=== PATIENT | male | born 1945 | race Caucasian/White ===

== ENCOUNTER 2024-01-12 10:45 | Emergency (ER) | payer MEDICARE, SELFPAY ==
[2024-01-12] VITALS (12 sets, daily range): BP systolic 108–146; BP diastolic 65–83; PULSE 79–86; TEMP 36.8; O2SAT 91–94; BMI 19.5
[2024-01-12 10:56] LABS: Glucometer 282 mg/dL (74-106)
--- NOTE | 2024-01-12 11:12 | ECG_ITS ---
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1945 Requested By: Order Number: [id number] Reading MD: LEATHA CARROLL Measurements Intervals [place] Rate: 83 P: 45 [place]: 212 QRS: -33 QRSD: 134 T: 30 QT: 382 QTc: 421 Interpretive Statements 1100 Sinus rhythm w/ first degree AV block with frequent supraventricular premature complexes, with occasional ventricular premature complexes 2330 Nonspecific intraventricular conduction block 3114 Cannot rule out anterior myocardial infarction, age undetermined 5234 Left ventricular hypertrophy with repolarization abnormality 7200 Abnormal left axis deviation 9150 abnormal ECG Electronically Signed On 01-12-2024 22:38:05 EDT by LEATHA CARROLL
--- NOTE | 2024-01-12 11:32 | XR_ITS ---
The [address] [address] Patient Name: DEBBI KEATING MRN: [id number] date: 1945 Sex: M Assigned Patient Location: ER Current Patient Location: ED.MAIN Accession/Order Number: [id number] Exam Date: 01/12/2024 11:25 Report Date: 01/12/2024 12:02 At the request of: MORENO GONZÁLES Procedure: XR chest 1V EXAM: XR chest 1V HISTORY: dizziness COMPARISON: Chest study dated 02/29/2020 TECHNIQUE: AP view of the chest was obtained with portable technique at 11:23 AM. FINDINGS: Heart and mediastinal contours are unremarkable in appearance. Mild elevation the right hemidiaphragm similar to prior study. Small linear densities in the right lower lung field compatible with atelectatic or fibrotic change. No obvious pneumothorax. Postoperative sternotomy wires are present. Cardiac valve prosthesis is noted. Mild convexity of the lower dorsal and visualized upper lumbar spine to the left. Moderate size hiatal hernia suggested which was noted previously. XR/XR chest 1V IMPRESSION: Mild atelectatic or fibrotic change in the right lower lung field. No acute infiltrate or consolidation seen. Electronically authenticated by: VAMSI LAZARO Date: 01/12/2024 12:02
[2024-01-12 11:49] LABS: Basophils Percent Auto 0.3 % (0.2-2.0); Eosinophils Absolute Auto 0.2 10^3/uL (0.0-0.7); Eosinophils Percent Auto 1.5 % (0.9-7.0); Hematocrit 41.1 % (42.0-54.0); Hemoglobin 14.4 g/dL (14.0-18.0); Immature Granulocytes Abs Auto 0.06 10^3/uL (0.00-0.03); Immature Granulocytes Pct Auto 0.6 % (0.0-0.5); Lymphocytes Percent Auto 10.1 % (20.5-60.0); Mean Corpuscular Hemoglobin 32.4 pg (25.9-34.0); Mean Corpuscular Volume 92.4 fL (80.0-94.0); Mean Platelet Volume 11.1 fL (9.5-13.5); Monocytes Absolute Auto 0.7 10^3/uL (0.3-0.8); Monocytes Percent Auto 7.6 % (1.7-12.0); Neutrophils Absolute Auto 7.7 10^3/uL (1.4-6.5); Neutrophils Percent Auto 79.9 % (43.0-75.0); Platelet Count 152 10^3/uL (150-450); Red Blood Count 4.45 10^6/uL (4.70-6.10); Red Cell Distribution Width 12.8 % (11.0-15.0); White Blood Count 9.7 10^3/uL (4.0-11.0)
--- NOTE | 2024-01-12 11:52 | ED.WEAKNESS1 ---
HPI - Weakness General Chief complaint: Weakness Stated complaint: DIZZY, WEAKNESS, SAID COULD BE FROM LOW BLOOD SUGA Time Seen by Provider: 01/12/24 10:57 Source: patient Mode of arrival: Wheelchair History of Present Illness HPI Narrative: The patient presenting to us after he has been having a complaint of generalized weakness since he had been discharged from the hospital in [facility] on Thursday which she 3 days ago, the patient was admitted there after he had a workup for chest pain, according to him he was found to be diabetic but he was not discharged home with any diabetes medication. The patient denies any abdominal pain nausea vomiting or any other concerns. He does have a generalized weakness and tiredness and his main concern that he did not take any medication for diabetes when he went home. The patient had a cardiac catheter with the right arm he is not complaining of any significant pain Related Data Home Medications ?Medication ?Instructions ?Recorded ?Confirmed lorazepam 0.5 mg tablet 0.5 mg PO .hs 01/12/24 01/12/24 metoprolol succinate 25 mg 25 mg PO DAILY 01/12/24 01/12/24 tablet,extended release 24 hr sacubitril 24 mg-valsartan 26 mg 1 tab PO DAILY 01/12/24 01/12/24 tablet (Entresto) tadalafil 20 mg tablet 20 mg PO PRN PRN sexual activity 01/12/24 01/12/24 tamsulosin 0.4 mg capsule 0.4 mg PO Q24H 01/12/24 01/12/24 warfarin 5 mg tablet 5 mg PO .COMPLEX 01/12/24 01/12/24 Allergies Allergy/AdvReac Type Severity Reaction Status Date / Time No Known Drug Allergies Allergy Verified 01/12/24 10:55 Review of Systems ROS Status of ROS 10 or more systems reviewed and unremarkable except as noted in history and below Exam Narrative Exam Narrative: Nurses notes and vital signs reviewed and patient is not hypoxic. General: Well-appearing and in no apparent distress. Skin: Warm, dry, no pallor noted. No rash. Head: Normocephalic, atraumatic. Neck: Supple, non-tender. Eye: Pupils are equal, round and EOMI. No scleral icterus. Ears, Nose, Mouth, and Throat: TM are clear, no nasal mucosal hypertrophy. Oral mucosa is moist, no posterior oropharynx erythema, uvula is mid-line Cardiovascular: Regular Rate and Rhythm the patient have the click of the mechanical valve. Respiratory: No accessory muscle use or respiratory distress. Lungs are clear to auscultation, no wheezing, rales or rhonchi Chest Wall: no tenderness Back: No midline thoracic or lumbar vertebral tenderness. No CVA tenderness Musculoskeletal: normal ROM, no calf or popliteal tenderness, no lower extremity edema/swelling. Right upper extremity on the forearm wrist area the patient have ecchymosis that is healing GI: Abdomen is soft, non-distended. Normal bowel sounds. No masses appreciated. No tenderness to palpation. No rebound, guarding, or rigidity noted. Neurological: A&O x4. No cranial nerve dysfunction observed. No truncal ataxia. Moves all extremities. Sensation intact. Psychiatric: Cooperative and interactive. Normal mood and affect. Constitutional Vital Signs, click to edit/add: Last Vital Signs Temp 98.3 F 01/12/24 11:00 Pulse 84 01/12/24 12:50 Resp 17 01/12/24 12:50 BP 126/79 01/12/24 12:30 Pulse Ox 92 L 01/12/24 12:40 O2 Del Method Room Air 01/12/24 11:00 Course Vital Signs Vital signs: Vital Signs Temperature 98.3 F 01/12/24 11:00 Pulse Rate 79 01/12/24 11:00 Respiratory Rate 16 01/12/24 11:00 Blood Pressure 136/78 01/12/24 11:00 Pulse Oximetry 93 L 01/12/24 11:00 Oxygen Delivery Method Room Air 01/12/24 11:00 Temperature 98.3 F 01/12/24 11:00 Pulse Rate 84 01/12/24 12:50 Respiratory Rate 17 01/12/24 12:50 Blood Pressure 126/79 01/12/24 12:30 Pulse Oximetry 92 L 01/12/24 12:40 Oxygen Delivery Method Room Air 01/12/24 11:00 MDM - Weakness MDM Narrative Medical decision making narrative: 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 The patient ejection fraction was found to be 40 to 45% there was no other acute significant finding and the patient hospitalization. The patient was discharged to follow-up with the primary care as outpatient with machine to measure his blood sugar at home. Patient EKG in the ER showing sinus rhythm with a heart rate of [address] elevation or depression there is PVC seen At this moment the patient denies any complaint except for the generalized weakness he did have chest pain that was the initial admission concern when he was admitted last week to [facility] but he does not have any pain anymore. He has had some decrease in appetite but he is eating 3 meals and denying any dizziness or difficulty ambulating The patient was able to ambulate in the ER with no difficulty and no desaturation detected or any distress. CBC and chemistry showed no acute pathology and the patient although he does have elevated blood sugar but he does not have any other electrolyte disturbances or any reason to start him in acute treatment right now in the ER the patient just need to be following up with his primary care doctor to get A1c and further evaluation of his diabetes Patient will follow-up with his primary care which is in few days The patient is to follow up with primary care physician in next 2-3 days or to return to the emergency department should any of the signs or symptoms worsen or new symptoms develop. The patient agrees with the following Diagnosis and Treatment plan and the patient will be discharged home. Lab Data Labs: Lab Results 01/12/24 01/12/24 01/12/24 Range/Units 10:55 11:25 12:01 WBC 9.7 (4.0-11.0) 10^3/uL RBC 4.45 L (4.70-6.10) 10^6/uL Hgb 14.4 (14.0-18.0) g/dL Hct 41.1 L (42.0-54.0) % MCV 92.4 (80.0-94.0) fL MCH 32.4 (25.9-34.0) pg MCHC 35.0 (29.9-35.2) g/dL RDW 12.8 (11.0-15.0) % Plt Count 152 (150-450) 10^3/uL MPV 11.1 (9.5-13.5) fL Neut % (Auto) 79.9 H (43.0-75.0) % Lymph % (Auto) 10.1 L (20.5-60.0) % [place] % (Auto) 7.6 (1.7-12.0) % Eos % (Auto) 1.5 (0.9-7.0) % Baso % (Auto) 0.3 (0.2-2.0) % Neut # (Auto) 7.7 H (1.4-6.5) 10^3/uL Lymph # (Auto) 1.0 L (1.2-3.8) 10^3/uL [place] # (Auto) 0.7 (0.3-0.8) 10^3/uL Eos # (Auto) 0.2 (0.0-0.7) 10^3/uL Baso # (Auto) 0.0 (0.0-0.1) 10^3/uL Abs Immat Gran (auto) 0.06 H (0.00-0.03) 10^3/uL Imm/Tot Granulo (auto) 0.6 H (0.0-0.5) % PT 21.3 H (9.0-11.6) sec INR 2.17 Sodium 133 L (136-145) mmol/L Potassium 3.9 (3.5-5.1) mmol/L Chloride 98 (98-107) mmol/L Carbon Dioxide 26.4 (21.0-32.0) mmol/L Anion Gap 12.5 BUN 14.0 (7.0-18.0) mg/dL Creatinine 1.02 (0.70-1.30) mg/dL Est GFR ( Amer) >60 (>=60) Est GFR (Non-Af Amer) >60 (>=60) BUN/Creatinine Ratio 13.7 Glucose 276 H (74-106) mg/dL Calcium 9.3 (8.5-10.1) mg/dL Magnesium 1.9 (1.8-2.4) mg/dL Total Bilirubin 0.6 (0.2-1.0) mg/dL AST 34 (15-37) U/L ALT 41 (16-63) U/L Alkaline Phosphatase 79 (46-116) U/L Troponin I High Sens 13.5 (4.0-76.1) pg/mL Total Protein 6.8 (6.4-8.2) g/dL Albumin 3.6 (3.4-5.0) g/dL Globulin 3.2 g/dL Albumin/Globulin Ratio 1.1 Urine Color Yellow (YELLOW) Urine Clarity Clear (CLEAR) Urine pH 6.5 (5.0-9.0) Ur Specific [place] 1.010 (1.005-1.025) Urine Protein Negative (NEG/TRACE) mg/dL Urine Glucose (UA) >=1000 A (NEGATIVE) mg/dL Urine Ketones Negative (NEGATIVE) mg/dL Urine Occult Blood Trace-i (NEGATIVE) Urine Nitrite Negative (NEGATIVE) Urine Bilirubin Negative (NEGATIVE) Urine Urobilinogen 1.0 (0.2-1.0) EU/dL Ur Leukocyte Esterase Negative (NEGATIVE) Urine RBC 0-2 (0-2) #/HPF Urine WBC 0-2 A (NONE SEEN) #/HPF Ur Squamous Epith Cells None seen (NONE/RARE) #/LPF Urine Crystals Seen A (None Seen) #/HPF Amorphous Sediment Rare Urine Bacteria None seen (NONE SEEN) #/HPF Urine Casts None seen (NONE SEEN) #/LPF Urine Mucus None seen (NONE SEEN) Ur Culture Indicated? No POC Glucose 282 H (74-106) mg/dL Discharge Plan Discharge Stand Alone Forms: Portal Instructions Chief Complaint: Weakness Clinical Impression: Generalized weakness Patient Disposition: Home, Self-Care Time of Disposition Decision: 13:07 Condition: Good Prescriptions / Home Meds: No Action metoprolol succinate 25 mg tablet extended release 24 hr 25 mg PO DAILY Entresto 24-26 mg tablet 1 tab PO DAILY warfarin 5 mg tablet 5 mg PO .COMPLEX Rx Instructions: 5 mg orally 5 mg daily and 2.5 mg on thursday tadalafil 20 mg tablet 20 mg PO PRN PRN (Reason: sexual activity) tamsulosin 0.4 mg capsule 0.4 mg PO Q24H lorazepam 0.5 mg tablet 0.5 mg PO .hs Print Language: Singaporean Instructions: Weakness (ED) Referrals: Physician,Non-Staff, MD [Primary Care Provider] - 1 week Discharge Date/Time: 01/12/24 13:21
[2024-01-12 11:58] LABS: Alanine Aminotransferase 41 U/L (16-63); Albumin Globulin Ratio 1.1; Albumin Level 3.6 g/dL (3.4-5.0); Alkaline Phosphatase 79 U/L (46-116); Anion Gap 12.5; Aspartate Amino Transferase 34 U/L (15-37); BUN Creatinine Ratio 13.7; Bilirubin Total 0.6 mg/dL (0.2-1.0); Calcium 9.3 mg/dL (8.5-10.1); Carbon Dioxide 26.4 mmol/L (21.0-32.0); Chloride 98 mmol/L (98-107); Estimated GFR (African America >60 (>=60); Estimated GFR (Non-African Ame >60 (>=60); Globulin 3.2 g/dL; Glucose 276 mg/dL (74-106); Magnesium 1.9 mg/dL (1.8-2.4); Potassium 3.9 mmol/L (3.5-5.1); Sodium 133 mmol/L (136-145); Total Protein 6.8 g/dL (6.4-8.2); Troponin I High Sensitivity 13.5 pg/mL (4.0-76.1)
[2024-01-12 12:12] LABS: Bilirubin Urine NEGATIVE (NEGATIVE); Blood Urine TRACE-I (NEGATIVE); Clarity Urine CLEAR (CLEAR); Color Urine YELLOW (YELLOW); Glucose Urine UA >=1000 mg/dL (NEGATIVE); Ketones Urine NEGATIVE (NEGATIVE); Leukocyte Esterase Urine NEGATIVE (NEGATIVE); Nitrite Urine NEGATIVE (NEGATIVE); Protein Urine NEGATIVE (NEG/TRACE); pH Urine 6.5 (5.0-9.0)
[2024-01-12 12:14] LABS: INR 2.17; Prothrombin Time 21.3 sec (9.0-11.6)
[2024-01-12 12:14] LABS: Urine Microscopic Indicated YES
[2024-01-12 12:35] LABS: Amorphous Sediment Urine RARE; Bacteria Urine NONE SEEN #/HPF (NONE SEEN); Cast Seen? NONE SEEN #/LPF (NONE SEEN); Crystals Seen? Seen #/HPF (None Seen); Mucus Urine NONE SEEN (NONE SEEN); RBC Urine 0-2 #/HPF (0-2); Squamous Epithelial Cell Urine NONE SEEN #/LPF (NONE/RARE); WBC Urine 0-2 #/HPF (NONE SEEN)
[2024-01-12 12:36] LABS: Urine Culture Indicated NO
== END 2024-01-12 13:21 | disposition home or self-care (01) ==
PROVIDERS: Emergency Provider Emergency Medicine
DX: R53.1 Weakness (principal); R42 Dizziness and giddiness; Z79.01 Long term (current) use of anticoagulants
CPT/HCPCS: 36415; 71045; 80053; 81001; 83735; 84484; 85025; 85610; 93005; 99285

== ENCOUNTER 2024-01-16 13:16 | Emergency (ER) | payer MEDICARE, SELFPAY ==
[2024-01-16 13:21] VITALS: BP 122/79; PULSE 91; TEMP 36.7; O2SAT 96; BMI 20.8
[2024-01-16 13:27] LABS: Glucometer 331 mg/dL (74-106)
--- NOTE | 2024-01-16 13:48 | ECG_ITS ---
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
--- NOTE | 2024-01-16 14:03 | XR_ITS ---
The [place] [id number] Patient Name: DEBBI KEATING MRN: [id number] date: 1945 Sex: M Assigned Patient Location: ER Current Patient Location: ED.MAIN Accession/Order Number: [id number] Exam Date: 01/16/2024 14:15 Report Date: 01/16/2024 14:48 At the request of: JAMIL MIGUEL Procedure: XR chest 1V CLINICAL HISTORY: Weakness COMPARISON: Chest radiograph, 4 days ago FINDINGS: Portable AP view of the chest obtained. Cardiomediastinal silhouette is chronically enlarged. Chronic elevation of the right hemidiaphragm.. Lungs are clear, no evidence of infiltrate, suspicious nodule, or mass. No evidence of significant pleural fluid on this portable projection. No acute bony abnormality. XR/XR chest 1V IMPRESSION: No acute abnormality. Electronically authenticated by: ANNE HARRINGTON Date: 01/16/2024 14:48
--- OUTSIDE RECORDS SUMMARY | 2024-01-16 14:20 | XMS_ITS | CCD ---
Author Organization [facility] Care Team Providers Care Group Chief Operator Name Role Phone REQUEST, DR FORD LISTED Consulting Unavaila ble REQUEST, DR FORD LISTED Attending Unavaila ble REQUEST, DR FORD LISTED Admitting Unavaila ble MISC, DR SAHU Primary Care Unavailable MISC, DR SAHU Primary Care Unavailable REQUEST, NONE LISTED Consulting Unavaila ble REQUEST, DR FORD LISTED Attending Unavaila ble REQUEST, DR FORD LISTED Admitting Unavaila ble MISC, DR SAHU Primary Care Unavailable PAY, DR SRIVASTAVA Attending Unavailable PAY, DR SRIVASTAVA Admitting Unavailable ZIEBER, DR YELENA Jose Consulting Unavailable PAY, DR SRIVASTAVA Consulting Unavailable KATKO, IMER Lewis Consulting Unavailable KATKO, IMER Lewis Attending Unavailable KATKO, IMER Lewis Admitting Unavailable MISC, DR SAHU Primary Care Unavailable MISC, DR SAHU Primary Care Unavailable PAY, DR SRIVASTAVA Consulting Unavailable PAY, DR SRIVASTAVA Attending Unavailable PAY, DR SRIVASTAVA Admitting Unavailable MARKER, DR ERVIN Consulting Unavailable AHDOOT, PELON Consulting Unavailable DERROW, ANNE Consulting Unavailable MISC, DR SAHU Primary Care Unavailable RICE, DR PHUC Rubio Consulting Unavailable RICE, DR PHUC Rubio Attending Unavailable RICE, DR PHUC Rubio Admitting Unavailable WEST, DR LAURA Leon Consulting Unavailable Booker Villeda Unavailable Booker Villeda Unavailable Booker Villeda Unavailable BOOKER VILLEDA Primary Care Physician [phone] Booker Villeda DO Primary Care Provider Booker Villeda DO Primary Care Provider Booker Villeda DO Primary Care Provider Cande CATALAN Referring Unavailable BOOKER VILLEDA Primary Care Unavailshayy e Cande CATALAN Attending Unavailable BOOKER VILLEDA Primary Care Unavailabl e SERVICE, JOBST Referring Unavailable BOOKER VILLEDA Primary Care Unavailable SERVICE, JOBST Referring Unavailable BOOKER VILLEDA Primary Care Unavailable SERVICE, JOBST Referring Unavailable VILLEDA, BOOKER Jose Primary Care Unavailable BOOKER VILLEDA Primary Care Physician Phuc FORBES Attending Unavailable Zeferino CHARLES Attending Unavailable Zeferino CHARLES Attending Unavailable DO Booker Villeda Primary Care Provider [facility], DO Zeferino Gilmore Emergency Provider MD Liu Ferraro Admit Provider MD Liu Ferraro Attending Provider DO Booker Villeda Primary Care Provider [place], DO Zeferino Gilmore Emergency Provider MD Liu Ferraro Admit Provider DO Anton Mirza Attending Provider Nara Nichols Consulting Unavailable Booker Villeda Primary Care Unavailable Liu Ferraro Admitting Unavailable Anton Mirza Attending Unavailable Giovani Alcaraz Consulting Unavailable Kel Rojas Consulting Ana Brown Consulting Unavailable Allergies Allergy Classification Reported Allergen(s) Allergy Type Date of Onset Reaction(s) Facility (2 sources) tamsulosin; Translations: [tamsulosin] Drug Allergy Weal (disorder), Unknown (qualifier value) [facility] Leann (1 source) No Known Medication Allergies; Translations: [No Known Medication Allergies] Propensity to adverse reactions (disorder) [facility] Rep[facility] (1 source) tamsulosin Drug Allergy [facility] Repository Medications Current Medications Medication Drug Class(es) Dates Sig (Normalized) Sig (Original) acetaminophen 500 mg oral tablet (9 sources) Start: 01-05-2024 take 2 tablets by mouth every six hours Acetaminophen (Tylenol Extra Strength) 500 mg tablet Active 1000 MG PO Every 6 hours January 05, 2024 12:00am Start: 01-13-2020 take 1 tablet by rach th every five hours acetaminophen 500 mg Tab 500 mg = 1 tab(s), Oral, Bedtime, takes a second tab 5 hours later, Refills(s) 0, Pain Start Date: 01/13/20 Status: Ordered take 1 tablet by rach th every four hours as needed acetaminophen (TYLENOL) 500 mg tablet Take 1 tablet (500 mg total) by mouth every 4 (four) hours as needed. 0 Active [id number] 200 actuat albuterol 0.09 mg/actuat metered dose inhaler (13 sources) beta2-Adrenergic Agonist Start: 11-13-2023 take 1 puff(s) by inhalation every four hours as needed Albuterol Sulfate Active 1 PUFF INHALATION Every 4 hours November 13, 2023 1:00am FreeTextSi puff as needed Inhalation every 4 hrs; Note: Source Status: Taking; Refills: 1; Provider: Deng Jose take 1 puff(s) by in halation every four hours as needed Albuterol Sulfate HFA 108 (90 Base) MCG/ACT 1 puff as needed Inhalation every 4 hrs Active take 1 puff(s) by in halation every four hours as needed Albuterol Sulfate HFA 108 (90 Base) MCG/ACT 1 puff as needed Inhalation every 4 hrs Active amoxicillin 875 mg / clavulanate 125 mg oral tablet (3 sources) Penicillin-class Antibacterial Start: 06-21-2021 take 1 tablet by mouth every twelve hours Amoxicillin-Pot Clavulanate 875-125 MG 1 tablet Orally every 12 hrs for 7 day(s) Jun, Active baclofen 20 mg oral tablet (9 sources) gamma-Aminobutyric Acid-ergic Agonist Start: 07-23-2018 take 10 mg by mouth twice daily Baclofen Active 10 MG PO Twice daily July 23, 2018 1:00am Start: 04-23-2018 take 1 tablet by rach th twice daily as needed for pain baclofen 20 mg Tab 20 mg = 1 tab(s), Oral, BID, PRN Pain, Refills(s) 0, Pain Start Date: 01/13/20 Status: Ordered 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: TAKE 1 TABLET BY RACH TH TWICE DAILY WITH FOOD OR MILK NEEDED for spasms Blood Sugar Diagnostic (2 sources) Start: 01-07-20 Blood Sugar Diagnostic Active STRIP 100 January 07, 2024 12:00am glucose checks twice daily Blood-Glucose Meter (2 sources) Start: 01-07-20 24 Blood-Glucose Meter Active KIT January 07, 2024 12:00am As Directed camphor 40 mg/ml / menthol 100 mg/ml / methyl salicylate 300 mg/ml topical cream (3 sources) camphor-methyl salicyl-menthoL 4-30-10 % cream Apply topically as needed. MONE JOSÉ 0 Active 0.8 ml enoxaparin sodium 100 mg/ml prefilled syringe (3 sources) Low Molecular Weight Heparin Start: 12-19-19 21 inject 0.7 mL by subcutaneous injection once enoxaparin (LOVENOX) 80 mg/0.8 mL syringe Indications: assisted (current) use of anticoagulants , H/O mechanical aortic valve replacement Inject 0.7 mL (70 mg total) under the skin every 12 (twelve) hours. As directed by Michelet [facility] 4 mL 0 12/18/2020 Active ferrous sulfate 325 mg oral tablet (20 sources) Start: 11-13-19 24 take 1 tablet by mouth once daily Ferrous Sulfate Active 325 MG PO Daily November 13, 2023 1:00am FreeTextSi tablet Orally one time per week; Note: Source Status: TakingPRN; Provider: Deng Shirley ( ) ferrous sulfate 325 (65 FE) mg tablet Take 1 tablet (325 mg total) by mouth as needed. 0 Active take 1 tablet by arch th every week as needed Ferrous Sulfate 325 (65 Fe) MG 1 tablet Orally one time per week PRN Active take 1 tablet by mouth every wee k Ferrous Sulfate 325 (65 Fe) MG 1 tablet Orally one time per week Active 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: Take 325 mg by mouth at bedtime as needed. fluticasone propionate 0.05 mg/actuat metered dose nasal spray (20 sources) Corticosteroid Start: 4 take 1 spray(s) nasal route once daily Fluticasone Propionate Active 1 SPRAY INTRANASAL Daily November 13, 2023 1:00am FreeTextSi spray in each nostril Nasally Once a day; Note: Source Status: TakingPRN; Refills: 5; Provider: Deng Shirley Start: 10-25-2018 take 1 spray(s) nasa l route once daily as needed Fluticasone Propionate 50 MCG/ACT 1 spray in each nostril Nasally Once a day for 30 day(s) PRN Oct, Active Handicap placards as directed (19 sources) Start: 04-27-2020 Handicap placards as directed as directed as directed as directed Apr, Active ibuprofen 800 mg oral tablet (3 sources) Nonsteroidal Anti-inflammatory Drug Start: 01-10-2021 take 1 tablet by mouth every eight hours as needed for pain ibuprofen (ADVIL,MOTRIN) 800 mg tablet Take 1 tablet (800 mg total) by mouth every 8 (eight) hours as needed for pain. 30 tablet 0 01/10/2021 Active isopropyl alcohol 0.7 ml/ml medicated pad (2 sources) Start: 01-07-2024 Alcohol Swabs Active 1 PAD TOPICAL Twice daily January 07, 2024 12:00am 24 hr metFORMIN hydrochloride 500 mg extended release oral tablet (1 source) Biguanide Start: 01-14-2024 take 500 mg by mouth once daily Metformin Active 500 MG PO Daily January 14, 2024 12:00am 24 hr metoprolol succinate 25 mg extended release oral tablet (2 sources) beta-Adrenergic Kemi Start: 01-08-2024 take 25 mg by mouth once daily Metoprolol Succinate Active 25 MG PO Daily January 08, 2024 12:00am MiraLax oral powder for reconstitution (2 sources) Start: 01-28-2020 MiraLax oral powder for reconstitution 17 gram, Oral, Daily, 527 gram, Refill(s) 0, dissolve in water before taking Start Date: 01/28/20 Status: Ordered Multiple Vitamin (19 sources) Multiple Vitamin as directed Orally Active Multivitamin (Multiple Vitamins) tablet (3 sources) Start: 11-13-2023 take 1 tablet by mouth once daily Multivitamin (Multiple Vitamins) tablet Active 1 TAB PO Daily November 13, 2023 1:00am multivitamin/iron/fo lic acid (CENTRUM COMPLETE ORAL) (3 sources) multivitamin/iro n/f olic acid (CENTRUM COMPLETE ORAL) Take by mouth daily with breakfast. 0 Active Nystatin / Triamcinolone (4 sources) Polyene Antifungal, Corticosteroid Start: 12-01-2019 nystatin-triamcinol one topical cream 1 liban, Topical, Daily, 30 gram, Refill(s) 0, apply lightly at night, [facility] 175, cm, 11/15/19 14:30:00 EDT, Height/Length Measured, 77.3, kg, 11/15/19 14:30:00 EDT, Weight Measured Start Date: 12/01/19 Status: Ordered Start: 12-01-2019 nystatin-triam cinolone topical cream 1 liban, Topical, Daily, 30 gram, Refill(s) 0, apply lightly at night, [facility] 175, cm, 11/15/19 14:30:00 EDT, Height/Length Measured, 77.3, kg, 11/15/19 14:30:00 EDT, Weight Measured Start Date: 12/01/19 Status: Ordered polyethylene glycol 3350 27571 mg powder for oral solution (2 sources) Osmotic Laxative Start: 01-28-2020 MiraLax oral powder for reconstitution 17 gram, Oral, Daily, 527 gram, Refill(s) 0, dissolve in water before taking Start Date: 01/28/20 Status: Ordered sacubitril 24 mg / valsartan 26 mg oral tablet (2 sources) Angiotensin 2 Receptor Kemi Start: 01-08-2024 take 1 tablet by mouth twice daily Sacubitril-Valsarta n (Entresto) 24-26 mg Tablet Active 1 TAB PO Twice daily January 08, 2024 12:00am tadalafil 20 mg oral tablet (20 sources) Phosphodiesterase 5 Inhibitor Start: 01-05-2024 take 20 mg by mouth once daily Tadalafil Active 20 MG PO Daily January 05, 2024 12:00am Start: 11-13-2023 End: 01-05-2024 Tadalafil Discontinued 10 MG PO . NEEDED November 13, 2023 1:00am January 05, 2024 5:36pm FreeTextSi tablet as needed Orally; Note: Source Status: TakingPRN; Provider: Dr. Forbes Start: 09-15-2023 tadalafil 20 m g Tab See Instructions, Take 1 tablet only as needed for erections, # 30 tab(s), Refills(s) 3, Pharmacy: [id number], 177, cm, 11/17/22 10:52:00 EDT, Height/Length Dosing, 73.2, kg, 11/17/22 10:52:00 EDT, Weight Dosing Start Date: 09/15/23 Status: Ordered Start: 11-17-2022 tadalafil 20 m g Tab See Instructions, Take 1 tablet only as needed for erections, # 30 tab(s), Refills(s) 3, Pharmacy: [id number], 177, cm, 11/17/22 10:52:00 EDT, Height/Length Dosing, 73.2, kg, 11/17/22 10:52:00 EDT, Weight Dosing Start Date: 11/17/22 Status: Ordered Start: 04-07-2022 [facility] tadalafil 10 mg Tab 10 mg = 1 tab(s), Oral, As Directed, PRN for erectile dysfunction, Take 1 tab by mouth 1 hr prior to sexual activity as needed. Don't exceed 1 tab in a 24 hr period., # 30 tab(s), Refills(s) 0, Pharmacy: [id number], 177, cm, 07/14/22... Start Date: 10/09/22 Status: Ordered tadalafiL (CIALI S) 20 mg tablet TAKE 1 TABLET BY MOUTH NEEDED for erections 0 Active tamsulosin hydrochloride 0.4 mg oral capsule (19 sources) alpha-Adrenergic Kemi Start: 01-05-2024 take 0.4 mg by mouth once daily Tamsulosin Active 0.4 MG PO Daily January 05, 2024 12:00am Start: 04-07-2022 take 1 capsule by [facility] once daily Flomax 0.4 mg Cap 0.4 mg = 1 cap(s), Oral, Daily, # 30 cap(s), Refills(s) 11, [facility]: [id number], 177, cm, 04/07/22 13:21:00 EDT, Height/Length Dosing, 73.2, kg, 04/07/22 13:21:00 EDT, Weight Dosing Start Date: 04/22/22 Status: Ordered Start: 10-17-2021 End: 03-16-2025 take 1 capsule by mouth twice daily tamsulosin 0.4 mg Cap 0.4 mg = 1 cap(s), Oral, BID, X 60 day(s), # 120 cap(s), Refills(s) 11, Pharmacy: [id number], 177, cm, 11/17/22 10:52:00 EDT, Height/Length Dosing, 73.2, kg, 11/17/22 10:52:00 EDT, Weight Dosing Start Date: 03/27/23 Stop Date: 03/16/25 Status: Ordered 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: Take 0.4 mg by mouth twice daily. TESTOSTERONE, BULK, MISC (3 sources) TESTOSTERONE, BU LK, MISC by miscellaneous route as needed. 0 Active warfarin sodium 5 mg oral tablet (20 sources) Vitamin K Antagonist Start: 01-13-2020 warfarin 5 mg Tab 2.5 mg = 0.5 tab(s), Oral, Thursday, Refills(s) 0, Blood Thinner Start Date: 01/13/20 Status: Ordered Start: 01-13-2020 warfarin 5 mg Tab 7.5 mg = 1.5 tab(s), Oral, ThuS, Refills(s) 0, Blood Thinner Start Date: 01/13/20 Status: Ordered Start: 05-12-2018 take 5 mg by mouth once Warfar in Active 5 MG PO .complex July 23, 2018 1:00am 5 mg PO every Thursday, Thursday, Thursday, , Thursday, Thursday 2.5 mg PO every Thursday 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: Take 5 mg by mouth o nce daily. Completed/Discontinued Medications Medication Drug Class(es) Dates Sig (Normalized) Sig (Original) LORazepam 0.5 mg oral tablet (20 sources) Benzodiazepine Start: 12-27-2019 End: 11-13-2023 take 1 tablet by mouth once daily as needed Lorazepam Discontinued 0.5 MG PO Daily November 13, 2023 11:33am November 13, 2023 11:46am FreeTextSi tablet as needed Orally Once a day; Note: Source Status: Refill; Refills: 1; Qty: 30 Tablet; Provider: Degn Jose 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: Take 0.25-0.5 mg by mouth daily at bedtime. 24 hr niacin 1000 mg extended release oral tablet (20 sources) Nicotinic Acid Start: 11-13-2023 End: 01-05-2024 take 1000 mg by mouth twice daily Niacin Discontinued 1000 MG PO Twice daily November 13, 2023 1:00am January 05, 2024 5:36pm take 1 tablet by rach once daily at breakfast niacin (VITAMIN B3) 500 mg tablet Take 1 tablet (500 mg total) by mouth daily with breakfast. 0 Active take 1 tablet by mouth twice michelle ly Niacin 1000 MG 1 tablet Orally twice a day Active Prosta Response (3 sources) Start: 07-23-2018 End: 01-05-2024 Prosta Response Discontinued July 23, 2018 1:00am January 05, 2024 5:37pm terazosin 5 mg oral capsule (20 sources) alpha-Adrenergi c Kemi Start: 11-13-2023 End: 01-05-2024 take 1 capsule by mouth once daily at bedtime Terazosin Discontinued 5 MG PO Daily at bedtime November 13, 2023 1:00am January 05, 2024 5:35pm FreeTextSi capsule at bedtime Orally Once a day; Note: Source Status: Taking; Provider: urology take 1 capsule by mo [facility] every twenty-four hours Terazosin HCl 5 MG 1 capsule at bedtime Orally Once a day Active Triamcinolone (13 sources) Corticosteroid Start: 04-18-2015 KENALOG - 10 m g Apr, 40 mg Virility For Men (3 sources) Start: 07-23-2018 End: 01-05-2024 Virility For Men Discontinue d July 23, 2018 1:00am January 05, 2024 5:38pm Problems Active Problems Problem Classification Problem Date Documented Da te Episodic/Chronic Abdominal hernia (8 sources) Diaphragmatic hernia without obstruction or gangrene; Translations: [Left inguinal hernia ] Onset: 03-02-2020 07-07-2019 Episodic Anxiety disorders (20 sources) Generalized anxiety disorder; Translations: [Generalized anxiety disorder] Onset: 06-25-2021 Resolved: 03-25-2022 Chronic Aortic; peripheral; and visceral artery aneurysms (1 source) Thoracic aortic aneurysm, without rupture; Translations: [THORACIC AORTIC ANEUR W/O RUPTURE] Onset: 03-02-2020 Chronic Asthma (1 source) Unspecified asthma, uncomplicated; Translations: [UNSPECIFIED ASTHMA UNCOMPLICATED] Onset: 03-02-2020 Chronic Cancer of prostate (20 sources) Adenocarcinoma of prostate; Translations: [Malignant neoplasm of prostate] Onset: 06-30-2018 Chronic Cancer of prostate (12 sources) Personal history of malignant neoplasm of prostate; Translations: [History of malignant neoplasm of prostate] Onset: 12-20-2020 Episodic Congestive heart failure; nonhypertensive (20 sources) Chronic systolic heart failure; Translations: [Chronic systolic (congestive) heart failure] Onset: 11-06-2021 Resolved: 11-06-2021 Chronic Diabetes mellitus with complications (2 sources) Hyperglycemia due to type 2 diabetes mellitus; Translations: [Type 2 diabetes mellitus with hyperglycemia] 01-14-2024 Chronic Diabetes mellitus without complication (5 sources) Type 2 diabetes mellitus in nonobese; Translations: [Type 2 diabetes mellitus without complications] Onset: 01-07-2024 01-07-2024 Chronic Diabetes mellitus without complication (20 sources) Impaired fasting glycemia; Translations: [Impaired fasting glucose] 11-12-2023 Episodic Disorders of lipid metabolism (20 sources) Mixed hyperlipidemia; Translations: [Mixed hyperlipidemia] Chronic Essential hypertension (20 sources) Essential hypertension; Translations: [Essential (primary) hypertension] Onset: 01-07-2024 11-12-2023 Chronic Genitourinary symptoms and ill-defined conditions (7 sources) Post-micturition incontinence ; Translations: [Post-void dribbling] Onset: 12-20-2020 12-27-2019 Chronic Genitourinary symptoms and ill-defined conditions (20 sources) Retention of urine, unspecified; Translations: [Dysuria] Onset: 03-02-2020 Episodic Heart valve disorders (20 sources) Presence of prosthetic heart valve; Translations: [History of aortic valve replacement] Onset: 12-16-2016 Resolved: 11-06-2021 Chronic Hyperplasia of prostate (11 sources) Benign prostatic hypertrophy with outflow obstruction; Translations: [Benign prostatic hyperplasia with lower urinary tract symptoms] Onset: 12-20-2020 Chronic Inflammatory conditions of male genital organs (19 sources) Balanitis; 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 Malaise and fatigue (13 sources) Weakness; Translations: [Asthenia] Onset: 02-29-2020 Episodic Nonspecific chest pain (12 sources) Chest pain, unspecified; Translations: [Chest pain] Onset: 12-09-2019 12-09-2019 Episodic Nutritional deficiencies (3 sources) Nutritional marasmus; Translations: [Unspecified severe protein-calorie malnutrition] Onset: 03-08-2020 03-08-2020 Chronic Other aftercare (1 source) Other body work auto trimmer (current) drug therapy; Translations: [OTH HALFWAY CURRENT DRUG THERAPY] Onset: 01-09-2021 Episodic Other aftercare (20 sources) Long-term current use of anticoagulant; Translations: [assisted (current) use of anticoagulants] Onset: 12-16-2016 09-03-2023 Episodic Other aftercare (1 source) Encounter for therapeutic drug level monitoring; Translations: [Encounter for therapeutic drug level monitoring] Onset: 11-26-2023 Episodic Other diseases of kidney and ureters (1 source) Urinary tract obstruction; Translations: [Other obstructive and reflux uropathy] Onset: 11-17-2022 Episodic Other male genital disorders (8 sources) Male erectile dysfunction, unspecified; Translations: [Erectile dysfunction] Onset: 04-07-2022 Chronic Other male genital disorders (3 sources) Pelvic hematoma; Translations: [Vascular disorders of male genital organs] Onset: 03-01-2020 03-01-2020 Chronic Other male genital disorders (4 sources) Other specified disorders of the male genital organs; Translations: [OTHER SPEC D/O MALE GENITAL ORGANS] Onset: 01-29-2021 Episodic Other male genital disorders (7 sources) Phimosis; Translations: [Phimosis] Onset: 12-20-2020 02-07-2020 Episodic Other male genital disorders (4 sources) Swelling of scrotum 01-28-2021 Episodic Other nutritional; endocrine; and metabolic disorders (4 sources) Weight loss 01-13-2020 Episodic Other screening for suspected conditions (not mental disorders or infectious disease) (6 sources) Other specified abnormal findings of blood chemistry; Translations: [Cardiovascular stress test abnormal] Onset: 03-02-2020 01-07-2024 Episodic Residual codes; unclassified (4 sources) Chronic back pain 01-13-2020 Episodic Residual codes; unclassified (7 sources) H/O: anticoagulant therapy; Translations: [Personal history of other drug therapy] Onset: 12-20-2020 12-27-2019 Episodic Unclassified (4 sources) Drug therapy finding 04-30-2020 Unclassified (2 sources) Body mass index 20-24 - normal 11-17-2022 Unclassified (2 sources) Non-smoker 11-17-2022 Urinary tract infections (8 sources) Urinary tract infection, site not specified; Translations: [Urinary tract infectious disease] Onset: 03-02-2020 12-27-2019 Episodic Past or Other Problems Problem Classification Problem Date Documented Date Episodic/Chronic Abdominal pain (1 source) Left lower quadrant pain; Translations: [LEFT LOWER QUADRANT PAIN] Onset: 03-02-2020 Episodic Complication of device; implant or graft (1 source) Leakage of other urinary catheter, initial encounter; Translations: [LEAKAGE OTHER URINARY CATH INITIAL] Onset: 03-02-2020 Episodic Complications of surgical procedures or medical care (1 source) Postprocedural hemorrhage of a genitourinary system organ or structure following a genitourinary system procedure; Translations: [POSTPCR HEM DAISY ORG/STR FLW DAISY PCR] Onset: 03-02-2020 Episodic E Codes: Fall (1 source) Unspecified fall, initial encounter; Translations: [UNSPECIFIED FALL INITIAL ENCOUNTER] Onset: 05-08-2020 Episodic Fluid and electrolyte disorders (1 source) Acidosis; Translations: [ACIDOSIS] Onset: 03-02-2020 Episodic Immunizations and screening for infectious disease (8 sources) Encounter for immunization; Translations: [Infectious disease carrier] Onset: 01-13-2020 Resolved: 07-16-2021 Episodic 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: 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 Other aftercare (4 sources) assisted (current) use of anticoagulants; Translations: [HALFWAY CURRNT USE ANTICOAGULANTS] Onset: 12-16-2016 Resolved: 11-06-2021 Episodic Other circulatory disease (1 source) Personal history of transient ischemic attack (TIA), and cerebral infarction without residual deficits; Translations: [PERS HX TIA AND CI NO RESID DEFICIT] Onset: 03-02-2020 Episodic Other connective tissue disease (3 sources) Pain in right thigh; Translations: [PAIN IN RIGHT THIGH] Onset: 05-04-2020 Episodic Other connective tissue disease (1 source) Pain in right leg; Translations: [PAIN IN RIGHT LEG] Onset: 05-08-2020 Episodic Other diseases of kidney and ureters (1 source) Disorder of kidney and ureter, unspecified; Translations: [DISORDER KIDNEY AND URETER UNS] Onset: 03-02-2020 Episodic Other lower respiratory disease (1 source) Shortness of breath; Translations: [SHORTNESS OF BREATH] Onset: 03-02-2020 Episodic Other non-traumatic joint disorders (1 source) Pain in right hip; Translations: [PAIN IN RIGHT HIP] Onset: 05-08-2020 Episodic Other upper respiratory infections (1 source) Acute maxillary sinusitis, unspecified; Translations: [Acute non-recurrent maxillary sinusitis J01.00] Onset: 06-21-2021 Resolved: 06-21-2021 Episodic Residual codes; unclassified (1 source) Other specified postprocedural states; Translations: [OTH SPECIFIED POSTPROCEDURAL STATES] Onset: 03-02-2020 Episodic Screening and history of mental health and substance abuse codes (1 source) Personal history of nicotine dependence; Translations: [PERSONAL HISTORY OF NICOTINE DEPEND] Onset: 05-08-2020 Episodic Septicemia (except in labor) (1 source) Sepsis, unspecified organism; Translations: [SEPSIS UNSPECIFIED ORGANISM] Onset: 03-02-2020 Episodic Sprains and strains (1 source) Unspecified sprain of right hip, initial encounter; Translations: [UNSPECIFIED SPRAIN RT HIP INITIAL] Onset: 05-08-2020 Episodic Superficial injury; contusion (1 source) Contusion of lower back and pelvis, initial encounter; Translations: [CONTUSION LOWER BACK PELVIS INITIAL] Onset: 05-08-2020 Episodic Results Test Name Value Interpretation Reference Range Facility Activated partial thrombopla stin time (aPTT) in platelet poor plasma by coagulation aOrdered By: Liu Ferraro on 01-09-2024 aPTT Coag (PPP) [Time] 83.5 s 25.1-36.5 [facility] 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: A hematocrit value g reater than 55% may lead to inaccurate results in coagulation testing. Patients having hematocrit values >55% require a special collection tube for coagulation studies. Please contact the laboratory at [phone] for redraw instructions. Capillary blood glucose yamileth urement by glucometer (mass/volume)Ordered By: Anotn Mirza on 01-09-2024 Glucose [Mass/Vol] 211 mg/dL [facility] 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: Random Glucose Refer ence Range is dependent on time and content of last meal. Glucose of more than 200 mg/dL in a nonstressed, ambulatory subject supports the diagnosis of Diabetes Mellitus. Result Comment: [place] Glucose Reference Range is dependent on time and content of last meal. Glucose of more than 200 mg/dL in a nonstressed, ambulatory subject supports the diagnosis of Diabetes Mellitus. PERFORMED BY: [place] [address] PATHOLOGIST CONSULTING IT ARCHITECT DARÍO ROGERS M.D. Performed By: #### P T #### [address] Glucose Poct Glucometerson 0 01-09-2024 Glucose [Mass/Vol] 183 mg/dL Normal [facility] 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: Result Comment: [place] Glucose Reference Range is dependent on time and content of last meal. Glucose of more than 200 mg/dL in a nonstressed, ambulatory subject supports the diagnosis of Diabetes Mellitus. PERFORMED BY: [place] [address] PATHOLOGIST CONSULTING IT ARCHITECT DARÍO ROGERS M.D. Performed By: #### G LULS #### Point of Care testing , INR in Platelet poor plasma by Coagulation assayOrdered By: Liu Ferraro on 01-09-2024 INR Coag (PPP) [Relative time] 1.1 {INR} [facility] 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: INR Therapeutic Rang e A) Pre- and Peroperative OAT started two weeks before surgery. NOT HIP SURGERY: 1.5 - 2.5 HIP SURGERY: 2 - 3B) Primary and secondary prevention of venous THROMBOSIS: 2 - 3C) Active venous thrombosis, pulmonary embolismand prevention of recurrent venous thrombosis: 2 - 3D) Prevention of arterial thromboembolismincluding patients with mechanical heart valves: 3 - 4.5 Partial Thromboplastin Timeo n 01-09-2024 aPTT Coag (Bld) [Time] 83.5 s High 25.1-36.5 [facility] 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: Result Comment: A he matocrit value greater than 55% may lead to inaccurate results in coagulation testing. Patients having hematocrit values >55% require a special collection tube for coagulation studies. Please contact the laboratory at [phone] for redraw instructions. PERFORMED BY: [place] [phone] PATHOLOGIST CONSULTING IT ARCHITECT DARÍO ROGERS M.D. Performed By: #### P TT #### [place] [id number] [facility] aPTT Coag (Bld) [Time] 48.7 s High 25.1-36.5 [facility] 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: Result Comment: A he matocrit value greater than 55% may lead to inaccurate results in coagulation testing. Patients having hematocrit values >55% require a special collection tube for coagulation studies. Please contact the laboratory at [phone] for redraw instructions. PERFORMED BY: [place] [address] PATHOLOGIST CONSULTING IT ARCHITECT DARÍO ROGERS M.D. Performed By: #### P T #### [address] [address] Prothrombin Time INRon 01-08 INR Coag (PPP) [Relative time] 1.1 {INR} Normal [facility] 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: Result Comment: INR Therapeutic Range A) Pre- and Peroperative OAT started two weeks before surgery. NOT HIP SURGERY: 1.5 - 2.5 HIP SURGERY: 2 - 3 B) Primary and secondary prevention of venous THROMBOSIS: 2 - 3 C) Active venous thrombosis, pulmonary embolism and prevention of recurrent venous thrombosis: 2 - 3 D) Prevention of arterial thromboembolism including patients with mechanical heart valves: 3 - 4.5 PERFORMED BY: [place] [address] PATHOLOGIST CONSULTING IT ARCHITECT DARÍO ROGERS M.D. Performed By: #### P T #### [address] [address] [place] PT Coag (PPP) [Time] 13.1 s High 9.0-12.9 [facility] 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: Result Comment: A he matocrit value greater than 55% may lead to inaccurate results in coagulation testing. Patients having hematocrit values >55% require a special collection tube for coagulation studies. Please contact the laboratory at [phone] for redraw instructions. Performed By: #### P T #### [place] [id number] [facility] Prothrombin time (PT)Ordered By: Liu Ferraro on 01-09-2024 PT Coag (PPP) [Time] 13.1 s 9.0-12.9 [facility] 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: A hematocrit value g reater than 55% may lead to inaccurate results in coagulation testing. Patients having hematocrit values >55% require a special collection tube for coagulation studies. Please contact the laboratory at [phone] for redraw instructions. Glucose Poct Glucometerson 0 01-08-2024 Commemt1 Glu2: Cleaned Meter Normal [facility] 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: Result Comment: PERF ORMED BY: [place] [address] PATHOLOGIST CONSULTING IT ARCHITECT DARÍO ROGERS M.D. Performed By: #### G LULS #### Point of Care testing , Glucose [Mass/Vol] 160 mg/dL Normal [facility] 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: Result Comment: [facility] Glucose Reference Range is dependent on time and content of last meal. Glucose of more than 200 mg/dL in a nonstressed, ambulatory subject supports the diagnosis of Diabetes Mellitus. Performed By: #### G LULS #### Point of Care testing , Commemt1 Glu2: Cleaned Meter Normal [facility] 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: Result Comment: PERF ORMED BY: [place] [address] PATHOLOGIST CONSULTING IT ARCHITECT DARÍO ROGERS M.D. Performed By: #### G LULS #### Point of Care testing , Glucose [Mass/Vol] 207 mg/dL Normal [facility] 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: Result Comment: [place] Glucose Reference Range is dependent on time and content of last meal. Glucose of more than 200 mg/dL in a nonstressed, ambulatory subject supports the diagnosis of Diabetes Mellitus. Performed By: #### G LULS #### Point of Care testing , Glucose [Mass/Vol] 199 mg/dL Normal [facility] 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: Result Comment: [facility] Glucose Reference Range is dependent on time and content of last meal. Glucose of more than 200 mg/dL in a nonstressed, ambulatory subject supports the diagnosis of Diabetes Mellitus. PERFORMED BY: [place] [address] PATHOLOGIST CONSULTING IT ARCHITECT DARÍO ROGERS M.D. Performed By: #### P T #### [address] Glucose [Mass/Vol] 162 mg/dL Normal [facility] 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: Result Comment: [facility] Glucose Reference Range is dependent on time and content of last meal. Glucose of more than 200 mg/dL in a nonstressed, ambulatory subject supports the diagnosis of Diabetes Mellitus. PERFORMED BY: [place] [address] PATHOLOGIST CONSULTING IT ARCHITECT DARÍO ROGERS M.D. Performed By: #### G LULS #### Point of Care testing , Glucose [Mass/Vol] 164 mg/dL Normal [facility] 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: Result Comment: [facility] Glucose Reference Range is dependent on time and content of last meal. Glucose of more than 200 mg/dL in a nonstressed, ambulatory subject supports the diagnosis of Diabetes Mellitus. PERFORMED BY: [place] [address] PATHOLOGIST CONSULTING IT ARCHITECT DARÍO ROGERS M.D. Performed By: #### P T #### [address] No Panel InformationOrdered By: Anton Mirza on 01-08-2024 Bedside Glucose Comment Glu2: cleaned meter [facility] Partial Thromboplastin Timeo n 01-08-2024 aPTT Coag (Bld) [Time] 74.2 s High 25.1-36.5 [facility] 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: Order Comment: draw last Result Comment: A he matocrit value greater than 55% may lead to inaccurate results in coagulation testing. Patients having hematocrit values >55% require a special collection tube for coagulation studies. Please contact the laboratory at [phone] for redraw instructions. PERFORMED BY: [place] [address] PATHOLOGIST CONSULTING IT ARCHITECT DARÍO ROGERS M.D. Performed By: #### P T #### [facility] [address] [place] [address] aPTT Coag (Bld) [Time] 48.9 s High 25.1-36.5 [facility] 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: Result Comment: A he matocrit value greater than 55% may lead to inaccurate results in coagulation testing. Patients having hematocrit values >55% require a special collection tube for coagulation studies. Please contact the laboratory at [phone] for redraw instructions. PERFORMED BY: [place] [address] PATHOLOGIST CONSULTING IT ARCHITECT DARÍO ROGERS M.D. Performed By: #### G LULS #### Point of Care testing , aPTT Coag (Bld) [Time] 45.9 s High 25.1-36.5 [facility] 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: Order Comment: Comme nt Obtain PTT 6 HRS after start of Heparin changes Result Comment: A he matocrit value greater than 55% may lead to inaccurate results in coagulation testing. Patients having hematocrit values >55% require a special collection tube for coagulation studies. Please contact the laboratory at [phone] for redraw instructions. PERFORMED BY: [place] [address] PATHOLOGIST CONSULTING IT ARCHITECT DARÍO ROGERS M.D. Performed By: #### G LULS #### Point of Care testing , Prothrombin Time INRon 01-07 INR Coag (PPP) [Relative time] 1.5 {INR} Normal [facility] 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: Order Comment: draw last Result Comment: INR Therapeutic Range A) Pre- and Peroperative OAT started two weeks before surgery. NOT HIP SURGERY: 1.5 - 2.5 HIP SURGERY: 2 - 3 B) Primary and secondary prevention of venous THROMBOSIS: 2 - 3 C) Active venous thrombosis, pulmonary embolism and prevention of recurrent venous thrombosis: 2 - 3 D) Prevention of arterial thromboembolism including patients with mechanical heart valves: 3 - 4.5 Performed By: #### P T #### [address] PT Coag (PPP) [Time] 16.7 s High 9.0-12.9 [facility] 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: Order Comment: draw last Result Comment: A he matocrit value greater than 55% may lead to inaccurate results in coagulation testing. Patients having hematocrit values >55% require a special collection tube for coagulation studies. Please contact the laboratory at [phone] for redraw instructions. Performed By: #### P T #### [address] INR Coag (PPP) [Relative time] 1.9 {INR} Normal [facility] 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: Result Comment: INR Therapeutic Range A) Pre- and Peroperative OAT started two weeks before surgery. NOT HIP SURGERY: 1.5 - 2.5 HIP SURGERY: 2 - 3 B) Primary and secondary prevention of venous THROMBOSIS: 2 - 3 C) Active venous thrombosis, pulmonary embolism and prevention of recurrent venous thrombosis: 2 - 3 D) Prevention of arterial thromboembolism including patients with mechanical heart valves: 3 - 4.5 PERFORMED BY: [place] [address] PATHOLOGIST CONSULTING IT ARCHITECT DARÍO ROGERS M.D. Performed By: #### P T #### [address] PT Coag (PPP) [Time] 22.0 s High 9.0-12.9 [facility] 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: Result Comment: A he matocrit value greater than 55% may lead to inaccurate results in coagulation testing. Patients having hematocrit values >55% require a special collection tube for coagulation studies. Please contact the laboratory at [phone] for redraw instructions. Performed By: #### P T #### [address] [address] STR cardiac stress/lexiscano n 01-08-2024 STR cardiac stress/lexiscan [facility] [place] [address] [place] [address] Cardiac Stress Test Signed Patient: Debbi Zendejas MR#: [id number] : 1945 Acct:[id number] Age/Sex: 78 / M ADM Date: 01/07/24 Loc: Room: [address] [place] [address] Type: DIS IN Attending Dr: Anton Mirza DO Copies to: MD Abelardo Chamorro MD, [facility] Ordering Provider: Kel Rojas MD Date of Service: 01/07/24 STR/STR cardiac stress/lexiscan: chest pain ORDERED BY: Kel Rojas MD INDICATION: A 78-year-old patient with chest pain. Resting ECG revealed normal sinus rhythm with sinus arrhythmia, PVCs and first-degree AV block, LVH with QRS widening. Resting blood pressure 129/76 mmHg. Following intravenous administration of 400 mcg of Lexiscan over 10 seconds, no changes suggestive of ischemia were noted. No chest pain and no cardiac arrhythmias were seen. Cardiolite study followed. CONCLUSION: 1. No Lexiscan-induced ischemic ST segment abnormalities, chest pain or cardiac arrhythmias. 2. Cardiolite studies to be reported separately by Nuclear Cardiology. Transcribed By: NTS 01/08/242020 Dictated By: Abelardo Jamil MD, [facility] 01/08/24 1916 Signed By: 01/12/24 1320 Normal [facility] Basophils Auto (Bld) [#/Vol] Ordered By: Kel Rojas on 01-07-2024 Basophils (Bld) [#/Vol] 0.0 10*3/uL 0.0-0.2 [facility] Basophils/100 WBC Auto (Bld) Ordered By: Kel Rojas on 01-07-2024 Basophils/100 WBC (Bld) 0.3 % . [facility] Complete Blood Count Auto Di ffon 01-07-2024 Basophils (Bld) [#/Vol] 0.0 10*3/uL Normal 0.0-0.2 [facility] 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: Result Comment: PERF ORMED BY: [facility] [address] [place] [address] PATHOLOGIST CONSULTING IT ARCHITECT DARÍO ROGERS M.D. Performed By: #### G LULS #### Point of Care testing , Basophils/100 WBC (Bld) 0.3 % Normal . [facility] 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: Performed By: #### G LULS #### Point of Care testing , Eosinophils (Bld) [#/Vol] 0.1 10*3/uL Normal 0.0-0.45 [facility] 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: Performed By: #### G LULS #### Point of Care testing , Eosinophils/100 WBC (Bld) 1.3 % Normal . [facility] 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: Performed By: #### G LULS #### Point of Care testing , Erythrocyte distribution width (RBC) [Ratio] 13.4 % Normal 12.0-14.8 [facility] 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: Performed By: #### G LULS #### Point of Care testing , Hematocrit (Bld) [Volume fraction] 45.1 % Normal 38.8-50.0 [facility] 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: Performed By: #### G LULS #### Point of Care testing , Hemoglobin (Bld) [Mass/Vol] 15.4 g/dL Normal 13.0-17.0 [facility] 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: Performed By: #### G LULS #### Point of Care testing , Lymphocytes (Bld) [#/Vol] 1.8 10*3/uL Normal 1.00-4.8 [facility] 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: Performed By: #### G LULS #### Point of Care testing , Lymphocytes/100 WBC (Bld) 15.8 % Normal . [facility] 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: Performed By: #### G LULS #### Point of Care testing , MCH (RBC) [Entitic mass] 31.9 pg Normal 27.5-35.2 [facility] 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: Performed By: #### G LULS #### Point of Care testing , MCV (RBC) [Entitic vol] 93.4 fL Normal 83.5-101 [facility] 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: Performed By: #### G LULS #### Point of Care testing , Mean Corpuscular HGB Conc 34.2 g/dL Normal 32.5-35.6 [facility] 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: Performed By: #### G LULS #### Point of Care testing , Monocytes (Bld) [#/Vol] 0.9 10*3/uL High 0.0-0.8 [facility] 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: Performed By: #### G LULS #### Point of Care testing , Monocytes/100 WBC (Bld) 7.7 % Normal . [facility] 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: Performed By: #### G LULS #### Point of Care testing , Neutrophils (Bld) [#/Vol] 8.5 10*3/uL High 1.8-7.7 [facility] 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: Performed By: #### G LULS #### Point of Care testing , Neutrophils/100 WBC (Bld) 74.9 % Normal . [facility] 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: Performed By: #### G LULS #### Point of Care testing , NRBC% 0.0 /100{WBC} Normal 0-0.5 [facility] 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: Performed By: #### G LULS #### Point of Care testing , Platelet mean volume (Bld) [Entitic vol] 9.6 fL Normal 6.6-10.1 [facility] 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: Performed By: #### G LULS #### Point of Care testing , Platelets (Bld) [#/Vol] 180 10*3/uL Normal 150-450 [facility] 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: Performed By: #### G LULS #### Point of Care testing , RBC (Bld) [#/Vol] 4.83 10*6/uL Normal 3.90-5.60 [facility] 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: Performed By: #### G LULS #### Point of Care testing , WBC (Bld) [#/Vol] 11.3 10*3/uL High 4.1-10.5 [facility] 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: Performed By: #### G LULS #### Point of Care testing , Eosinophils Auto (Bld) [#/Vo l]Ordered By: Kel Rojas on 01-07-2024 Eosinophils (Bld) [#/Vol] 0.1 10*3/uL 0.0-0.45 [facility] Eosinophils/100 WBC Auto (Bl d)Ordered By: Kel Rojas on 01-07-2024 Eosinophils/100 WBC (Bld) 1.3 % . [facility] Erythrocyte distribution wid th Auto (RBC) [Ratio]Ordered By: Kel Rojas on 01-07-2024 Erythrocyte distribution width (RBC) [Ratio] 13.4 % 12.0-14.8 [facility] Glucose Poct Glucometerson 0 01-07-2024 Glucose [Mass/Vol] 133 mg/dL Normal [facility] 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: Result Comment: [facility] Glucose Reference Range is dependent on time and content of last meal. Glucose of more than 200 mg/dL in a nonstressed, ambulatory subject supports the diagnosis of Diabetes Mellitus. PERFORMED BY: [address] [address] PATHOLOGIST CONSULTING IT ARCHITECT DARÍO ROGERS M.D. Performed By: #### G LULS #### Point of Care testing , Glucose [Mass/Vol] 242 mg/dL Normal [facility] 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: Result Comment: [facility] Glucose Reference Range is dependent on time and content of last meal. Glucose of more than 200 mg/dL in a nonstressed, ambulatory subject supports the diagnosis of Diabetes Mellitus. PERFORMED BY: [address] [address] PATHOLOGIST CONSULTING IT ARCHITECT DARÍO ROGERS M.D. Performed By: #### G LULS #### Point of Care testing , Glucose [Mass/Vol] 181 mg/dL Normal [facility] 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: Result Comment: [facility] Glucose Reference Range is dependent on time and content of last meal. Glucose of more than 200 mg/dL in a nonstressed, ambulatory subject supports the diagnosis of Diabetes Mellitus. PERFORMED BY: [address] [address] PATHOLOGIST CONSULTING IT ARCHITECT DARÍO ROGERS M.D. Performed By: #### G LULS #### Point of Care testing , Glucose [Mass/Vol] 202 mg/dL Normal [facility] 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: Result Comment: [place] Glucose Reference Range is dependent on time and content of last meal. Glucose of more than 200 mg/dL in a nonstressed, ambulatory subject supports the diagnosis of Diabetes Mellitus. PERFORMED BY: [place] [address] PATHOLOGIST CONSULTING IT ARCHITECT DARÍO ROGERS M.D. Performed By: #### P T #### [address] Hematocrit Auto (Bld) [Volum e fraction]Ordered By: Kel Rojas on 01-07-2024 Hematocrit (Bld) [Volume fraction] 45.1 % 38.8-50.0 [facility] Hemoglobin [Mass/volume] in BloodOrdered By: Kel Rojas on 01-07-2024 Hemoglobin (Bld) [Mass/Vol] 15.4 g/dL 13.0-17.0 [facility] Leukocytes [#/volume] correc earnest for nucleated erythrocytes in Blood by Automated counOrdered By: Kel Rojas on 01-07-2024 WBC corrected for nucl RBC Auto (Bld) [#/Vol] 11.3 10*3/uL 4.1-10.5 [facility] Lymphocytes Auto (Bld) [#/Vo l]Ordered By: Kel Rojas on 01-07-2024 Lymphocytes (Bld) [#/Vol] 1.8 10*3/uL 1.00-4.8 [facility] Lymphocytes/100 WBC Auto (Bl d)Ordered By: Kel Rojas on 01-07-2024 Lymphocytes/100 WBC (Bld) 15.8 % . [facility] MCH Auto (RBC) [Entitic mass ]Ordered By: Kel Rojas on 01-07-2024 MCH (RBC) [Entitic mass] 31.9 pg 27.5-35.2 [facility] MCHC Auto (RBC) [Mass/Vol]Or dered By: Kel Rojas on 01-07-2024 MCHC (RBC) [Mass/Vol] 34.2 g/dL 32.5-35.6 [facility] MCV Auto (RBC) [Entitic vol] Ordered By: Kel Rojas on 01-07-2024 MCV (RBC) [Entitic vol] 93.4 fL 83.5-101 [facility] Monocytes Auto (Bld) [#/Vol] Ordered By: Kel Rojas on 01-07-2024 Monocytes (Bld) [#/Vol] 0.9 10*3/uL 0.0-0.8 [facility] Monocytes/100 WBC Auto (Bld) Ordered By: Kel Rojas on 01-07-2024 Monocytes/100 WBC (Bld) 7.7 % . [facility] NM keshia perf SPECT rest stron 01-07-2024 NM keshia perf SPECT rest str [place] [address] Nuclear Medicine Report Signed Patient: Debbi Zendejas MR#: [id number] : 1945 Acct:[id number] Age/Sex: 78 / M ADM Date: 01/07/24 Loc: Room: [address] [place] [address] Type: DIS IN Attending Dr: Anton Mirza DO Copies to: MD Abelardo Chamorro MD, [facility] Anton Mirza DO Ordering Provider: Kel Rojas MD Date of Service: 01/07/24 NM/NM keshia perf SPECT rest str: chest pain DOSE ORDERED INDICATION: A 78-year-old patient with chest pain. STUDY ORDERED BY: Kel Rojas MD Resting images were obtained after intravenous administration of 6.6 mCi of Cardiolite given on 01/07/2024, and stress images were obtained after intravenous administration of 18.9 mCi of Cardiolite given at peak exercise on 01/07/2024. Subsequently, gated SPECT MPI was obtained. TOMOGRAPHIC DATA: The study is abnormal. There is a moderate-sized fixed perfusion defect involving the apex and the basal inferolateral wall, consistent with myocardial infarction. No tomographic evidence of ischemia is noted. The gated study demonstrated increased left ventricular volume with severe global hypokinesis, ejection fraction 22% with normal TID at 0.84. CONCLUSION: 1. Abnormal exercise Cardiolite SPECT MPI. 2. Tomographic evidence of apical myocardial infarction along with basal inferolateral myocardial infarction. 3. No tomographic evidence of ischemia. 4. Increased left ventricular volume with severe global hypokinesis, ejection fraction 22% with normal TID at 0.84. No previous studies are available for comparison. Transcribed By: NTS 01/07/24 1611 Dictated By: Abelardo Jamil MD, [facility] 01/07/24 1515 Signed By: 01/12/24 1318 Normal [facility] Neutrophils Auto (Bld) [#/Vo l]Ordered By: Kel Rojas on 01-07-2024 Neutrophils (Bld) [#/Vol] 8.5 10*3/uL 1.8-7.7 [facility] Neutrophils/100 WBC Auto (Bl d)Ordered By: Kel Rojas on 01-07-2024 Neutrophils/100 WBC (Bld) 74.9 % . [facility] Nucleated erythrocytes [Pres ence] in Blood by Automated countOrdered By: Kel Rojas on 01-07-2024 Nucleated RBC Auto Ql (Bld) 0.0 /100{WBC} 0-0.5 [facility] Partial Thromboplastin Timeo n 01-07-2024 aPTT Coag (Bld) [Time] 37.5 s High 25.1-36.5 Th e [facility] 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: Result Comment: A he matocrit value greater than 55% may lead to inaccurate results in coagulation testing. Patients having hematocrit values >55% require a special collection tube for coagulation studies. Please contact the laboratory at [phone] for redraw instructions. PERFORMED BY: [address] [place] [address] PATHOLOGIST CONSULTING IT ARCHITECT DARÍO ROGERS M.D. Performed By: #### G MARY #### Point of Care testing , Platelet mean volume Auto (B ld) [Entitic vol]Ordered By: Kel Rojas on 01-07-2024 Platelet mean volume (Bld) [Entitic vol] 9.6 fL 6.6-10.1 [facility] Hospital Platelets Auto (Bld) [#/Vol] Ordered By: Kel Rojas on 01-07-2024 Platelets (Bld) [#/Vol] 180 10*3/uL 150-450 [facility] Prothrombin Time INRon 01-06 INR Coag (PPP) [Relative time] 2.3 {INR} Normal [facility] 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: Result Comment: INR Therapeutic Range A) Pre- and Peroperative OAT started two weeks before surgery. NOT HIP SURGERY: 1.5 - 2.5 HIP SURGERY: 2 - 3 B) Primary and secondary prevention of venous THROMBOSIS: 2 - 3 C) Active venous thrombosis, pulmonary embolism and prevention of recurrent venous thrombosis: 2 - 3 D) Prevention of arterial thromboembolism including patients with mechanical heart valves: 3 - 4.5 Performed By: #### G LULS #### Point of Care testing , PT Coag (PPP) [Time] 25.9 s High 9.0-12.9 [facility] 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: Result Comment: A he matocrit value greater than 55% may lead to inaccurate results in coagulation testing. Patients having hematocrit values >55% require a special collection tube for coagulation studies. Please contact the laboratory at [phone] for redraw instructions. Performed By: #### G LULS #### Point of Care testing , INR Coag (PPP) [Relative time] 2.8 {INR} Normal [facility] 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: Result Comment: INR Therapeutic Range A) Pre- and Peroperative OAT started two weeks before surgery. NOT HIP SURGERY: 1.5 - 2.5 HIP SURGERY: 2 - 3 B) Primary and secondary prevention of venous THROMBOSIS: 2 - 3 C) Active venous thrombosis, pulmonary embolism and prevention of recurrent venous thrombosis: 2 - 3 D) Prevention of arterial thromboembolism including patients with mechanical heart valves: 3 - 4.5 PERFORMED BY: [address] [place] [address] PATHOLOGIST CONSULTING IT ARCHITECT DARÍO ROGERS M.D. Performed By: #### G LULS #### Point of Care testing , PT Coag (PPP) [Time] 31.3 s High 9.0-12.9 [facility] 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: Result Comment: A he matocrit value greater than 55% may lead to inaccurate results in coagulation testing. Patients having hematocrit values >55% require a special collection tube for coagulation studies. Please contact the laboratory at [phone] for redraw instructions. Performed By: #### G LULS #### Point of Care testing , RBC Auto (Bld) [#/Vol]Ordere d By: Kel Rojas on 01-07-2024 RBC (Bld) [#/Vol] 4.83 10*6/uL 3.90-5.60 [facility] WBC Auto (Bld) [#/Vol]Ordere d By: Kel Rojas on 01-07-2024 WBC (Bld) [#/Vol] 11.3 10*3/uL 4.1-10.5 [facility] ECH echo transthoracicon ECH echo transthoracic [facility] Main [place] [address] [place] [address] Echocardiogram Signed Patient: Debbi Zendejas MR#: [id number] : 1945 Acct:[id number] Age/Sex: 78 / M ADM Date: 01/05/24 Loc: Room: [address] [place] [address] Type: ADM INOo Attending Dr: Liu Ferraro MD Ordering Provider: Liu Ferraro MD Date of Service: 01/05/24 ECH/ECH echo transthoracic: Chest Pain Copies to: Abelardo Jamil MD, [facility] Liu Ferraro MD Physician: Liu Ferraro Height: 71 in Weight: 148 lb Performed By: MARIFER Samuels BSA: 1.9 m2 BP: 109/67 mmHg HR: 99 Reason For Study: Chest Pain History: Rheumatic Fever, Aortic Valve Replacement - 1966 (ball and cage), Stroke, former smoker, HTN, HLD, CVA, CHF Interpretation Summary The left ventricular size and thickness are normal. There is moderate global hypokinesis of the left ventricle. Ejection Fraction = 40-45%. The left atrium appears mildly dilated. 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 The aortic root is 4.5 cm Procedure/Quality: A two-dimensional transthoracic echocardiogram with color flow, Doppler and injection of contrast agent Definity was performed. The study was technically fair in quality. Left Ventricle: The left ventricular size and thickness are normal. Ejection Fraction = 40-45%. There is moderate global hypokinesis of the left ventricle. Left Atrium: The left atrium appears mildly dilated. The atrial septum appears normal. Right Atrium: The right atrium appears normal in size. Right Ventricle: The right ventricular size, thickness and function are normal. 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 Mitral Valve: The mitral valve is mildly sclerotic. Tricuspid Valve: The tricuspid valve is normal in structure. Pulmonic Valve: The pulmonic valve is not well visualized. Arteries: Mild aortic root dilatation. The aortic root is 4.5 cm. Pericardium/Pleura: No pericardial effusion seen. There is no pleural effusion. IVC/Hepatic Veins: The inferior vena cava is normal in size, with a normal collapsibility index. Miscellaneous: No thrombus, vegetation or mass is seen. Measurements with Normals IVSd: 1.9 cm (0.7-1.1 cm)LVIDd: 4.3 cm (3.7-5.4 cm) LVPWd: 1.1 cm (0.7-1.1 cm)LVIDs: 3.7 cm (2.3-3.6 cm) LA dimension: 4.4 cm (2.3-4.0 cm)Ao root diam: 3.6 cm(2.0-3.6 cm) asc Aorta Diam: 4.4 cm(2.1-3.4cm) Doppler with Normals RVSP(TR): 31.9 mmHg (18-35mmHg) LV V1 max: 79.7 cm/sec(0.7-1.7m/s)MV E max antoinette: 151.5 cm/sec(0.8-1.3m/s) MMode/2D Measurements Calculations RVDd: 3.5 cm FS: 15.0 % Ao root area: LVOT diam: 2.0 cm EDV(Teich): 10.4 cm2 LVOT area: 3.1 cm2 84.3 ml ESV(Teich): 57.3 ml EF(Teich): 32.0 % __ LVLd ap4: 7.9 cm SV(MOD-sp4): LAV(MOD-sp4): LA A2 area: 18.0 cm2 EDV(MOD-sp4): 35.3 ml 48.3 ml 114.0 ml LAV(MOD-sp2): LA A4 area: 17.9 cm2 LVLs ap4: 7.5 cm 45.4 ml LA length (vol): ESV(MOD-sp4): 5.2 cm 78.7 ml LA vol: 52.5 ml EF(MOD-sp4): 31.0 % LA vol index: 28.3 ml/m2 Doppler Measurements Calculations MV dec time: MV V2 max: MV dec slope: Ao V2 max: 0.09 sec 155.9 cm/sec 276.3 cm/sec MV max P cm/sec2 Ao max P.7 mmHg 30.5 mmHg MV V2 mean: Ao mean P.8 cm/sec 15.0 mmHg MV mean PG: Ao V2 mean: 3.3 mmHg 180.4 cm/sec MV V2 VTI: 22.7 cm Ao V2 VTI: 51.4 cm MVA(VTI): 2.6 cm2 HINA(I,D): 1.2 cm2 HINA(V,D): 0.89 cm2 __ LV V1 max PG: TV max PG: TR max antoinette: 2.5 mmHg 27.0 mmHg 259.4 cm/sec LV V1 mean PG: TR max P.9 mmHg 1.3 mmHg RAP systole: LV V1 mean: 5.0 mmHg 52.4 cm/sec LV V1 VTI: 19.2 cm Transcribed By: SCV Performed At: 01/06/24 1110 Signed By: Abelardo Jamil MD, FACC 01/06/24 4087 Normal [facility] Glucose Poct Glucometerson 0 01-06-2024 Glucose [Mass/Vol] 198 mg/dL Normal [facility] 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: Result Comment: [place] om Glucose Reference Range is dependent on time and content of last meal. Glucose of more than 200 mg/dL in a nonstressed, ambulatory subject supports the diagnosis of Diabetes Mellitus. PERFORMED BY: [place] [address] PATHOLOGIST CONSULTING IT ARCHITECT DARÍO ROGERS M.D. Performed By: #### P T #### [address] Glucose [Mass/Vol] 200 mg/dL Normal [facility] 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: Result Comment: [place] om Glucose Reference Range is dependent on time and content of last meal. Glucose of more than 200 mg/dL in a nonstressed, ambulatory subject supports the diagnosis of Diabetes Mellitus. PERFORMED BY: [place] [address] PATHOLOGIST CONSULTING IT ARCHITECT DARÍO ROGERS M.D. Performed By: #### P T #### [address] Glucose [Mass/Vol] 204 mg/dL Normal [facility] 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: Result Comment: [place] om Glucose Reference Range is dependent on time and content of last meal. Glucose of more than 200 mg/dL in a nonstressed, ambulatory subject supports the diagnosis of Diabetes Mellitus. PERFORMED BY: [place] [id number] PATHOLOGIST CONSULTING IT ARCHITECT DARÍO ROGERS M.D. Performed By: #### G LULS #### Point of Care testing , Glucose [Mass/Vol] 201 mg/dL Normal [facility] 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: Result Comment: [place] om Glucose Reference Range is dependent on time and content of last meal. Glucose of more than 200 mg/dL in a nonstressed, ambulatory subject supports the diagnosis of Diabetes Mellitus. PERFORMED BY: [place] [id number] PATHOLOGIST CONSULTING IT ARCHITECT DAROÍ ROGERS M.D. Performed By: #### G LULS #### Point of Care testing , Commemt1 Glu2: Cleaned Meter Normal [facility] 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: Result Comment: PERF ORMED BY: [facility] [address] [place] [address] PATHOLOGIST CONSULTING IT ARCHITECT DARÍO ROGERS M.D. Performed By: #### G LULS #### Point of Care testing , Glucose [Mass/Vol] 198 mg/dL Normal [facility] 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: Result Comment: [facility] Glucose Reference Range is dependent on time and content of last meal. Glucose of more than 200 mg/dL in a nonstressed, ambulatory subject supports the diagnosis of Diabetes Mellitus. Performed By: #### G LULS #### Point of Care testing , Prothrombin Time INRon 01-05 INR Coag (PPP) [Relative time] 3.8 {INR} Normal [facility] 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: Result Comment: INR Therapeutic Range A) Pre- and Peroperative OAT started two weeks before surgery. NOT HIP SURGERY: 1.5 - 2.5 HIP SURGERY: 2 - 3 B) Primary and secondary prevention of venous THROMBOSIS: 2 - 3 C) Active venous thrombosis, pulmonary embolism and prevention of recurrent venous thrombosis: 2 - 3 D) Prevention of arterial thromboembolism including patients with mechanical heart valves: 3 - 4.5 PERFORMED BY: [facility] [address] [place] [address] PATHOLOGIST CONSULTING IT ARCHITECT DARÍO ROGERS M.D. Performed By: #### G LULS #### Point of Care testing , PT Coag (PPP) [Time] 42.6 s High 9.0-12.9 [facility] 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: Result Comment: A he matocrit value greater than 55% may lead to inaccurate results in coagulation testing. Patients having hematocrit values >55% require a special collection tube for coagulation studies. Please contact the laboratory at [phone] for redraw instructions. Performed By: #### G LULS #### Point of Care testing , Troponin I High Sensitivityo n 01-06-2024 Troponin I High Sensitivity 21.9 pg/mL High 0.0-20.0 [facility] 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: Order Comment: Trop was drawn late at 2044 Next one to be retimed 3HRS [employer] Trop Drawn late at 2044 Retime Q3HRS [employer] Result Comment: PERF ORMED BY: [facility] [address] [place] [id number] PATHOLOGIST CONSULTING IT ARCHITECT DARÍO ROGERS M.D. Performed By: #### G LULS #### Point of Care testing , A1C with Estimated Average Cande krishna 01-05-2024 Glucose [Mass/Vol] 235 mg/dL Normal [facility] 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: Result Comment: PERF ORMED BY: [facility] [address] [place] [address] PATHOLOGIST CONSULTING IT ARCHITECT DARÍO ROGERS M.D. Performed By: #### G LULS #### Point of Care testing , HbA1c (Bld) [Mass fraction] 9.8 % High 4.3-5.6 [facility] 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: Result Comment: Incr eased risk for diabetes: 5.7 - 6.4 diabetes: >6.4 glycemic control for adults with diabetes: <7.0 Performed By: #### G LULS #### Point of Care testing , Activated partial thrombopla stin time (aPTT) in platelet poor plasma by coagulation aOrdered By: Zeferino Parks on 01-05-2024 aPTT Coag (PPP) [Time] 45.0 s 25.1-36.5 [facility] 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: A hematocrit value g reater than 55% may lead to inaccurate results in coagulation testing. Patients having hematocrit values >55% require a special collection tube for coagulation studies. Please contact the laboratory at [phone] for redraw instructions. B-Type Natriuretic Peptideon 01-05-2024 Natriuretic peptide B (Bld) [Mass/Vol] 80.0 pg/mL Normal 5-100 [facility] 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: Result Comment: PERF ORMED BY: [facility] [address] [place] [place] [id number] PATHOLOGIST CONSULTING IT ARCHITECT DARÍO ROGERS M.D. Performed By: #### G LULS #### Point of Care testing , Basic Metabolic Panelon 12-08 Anion gap [Moles/Vol] 9.9 mmol/L Normal 6.0-15.0 [facility] 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: Performed By: #### G LULS #### Point of Care testing , Calcium [Mass/Vol] 9.7 mg/dL Normal 8.6-10.3 [facility] 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: Performed By: #### G LULS #### Point of Care testing , Chloride [Moles/Vol] 98 mmol/L Normal 98-107 [facility] 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: Performed By: #### G LULS #### Point of Care testing , CO2 [Moles/Vol] 28.9 mmol/L Normal 21.0-31.0 [facility] 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: Performed By: #### G LULS #### Point of Care testing , Creatinine [Mass/Vol] 0.98 mg/dL Normal 0.70-1.30 [facility] 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: Performed By: #### G LULS #### Point of Care testing , Creatinine Clr Calc Pharmacy 59.78 Normal [facility] 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: Result Comment: PERF ORMED BY: [address] [address] PATHOLOGIST CONSULTING IT ARCHITECT DARÍO ROGERS M.D. Performed By: #### G LULS #### Point of Care testing , GFR/1.73 sq M.predicted MDRD (S/P/Bld) [Vol rate/Area] mL/min/{1.73_m2} Normal [facility] 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: Performed By: #### G LULS #### Point of Care testing , Glucose [Mass/Vol] 283 mg/dL High 70-100 [facility] 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: Result Comment: [place] Glucose Reference Range is dependent on time and content of last meal. Glucose of more than 200 mg/dL in a nonstressed, ambulatory subject supports the diagnosis of Diabetes Mellitus. ADA recommended reference range Performed By: #### G LULS #### Point of Care testing , Potassium [Moles/Vol] 3.8 mmol/L Normal 3.5-5.1 [facility] 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: Performed By: #### G LULS #### Point of Care testing , Sodium [Moles/Vol] 133 mmol/L Low 136-145 [facility] 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: Performed By: #### G LULS #### Point of Care testing , Urea nitrogen [Mass/Vol] 16 mg/dL Normal 7-25 [facility] 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: Performed By: #### G LULS #### Point of Care testing , Basophils Auto (Bld) [#/Vol] Ordered By: PROVIDER TEMP on 01-05-2024 Basophils (Bld) [#/Vol] 0.0 10*3/uL 0.0-0.2 [facility] Basophils/100 WBC Auto (Bld) Ordered By: PROVIDER TEMP on 01-05-2024 Basophils/100 WBC (Bld) 0.2 % . [facility] Calcium [Mass/volume] in Ser um or PlasmaOrdered By: PROVIDER TEMP on 01-05-2024 Calcium [Mass/Vol] 9.7 mg/dL 8.6-10.3 [facility] Carbon dioxide, total [Moles /volume] in Serum or PlasmaOrdered By: PROVIDER TEMP on 01-05-2024 CO2 [Moles/Vol] 28.9 mmol/L 21.0-31.0 [facility] Chloride [Moles/volume] in S rush or PlasmaOrdered By: PROVIDER TEMP on 01-05-2024 Chloride [Moles/Vol] 98 mmol/L 98-107 [facility] Complete Blood Count Auto Di ffon 01-05-2024 Basophils (Bld) [#/Vol] 0.0 10*3/uL Normal 0.0-0.2 [facility] 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: Result Comment: PERF ORMED BY: [place] [address] PATHOLOGIST CONSULTING IT ARCHITECT DARÍO ROGERS M.D. Performed By: #### P T #### [facility] [address] [place] [address] Basophils/100 WBC (Bld) 0.2 % Normal . [facility] 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: Performed By: #### P T #### [facility] [address] [place] [address] [place] Eosinophils (Bld) [#/Vol] 0.1 10*3/uL Normal 0.0-0.45 [facility] 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: Performed By: #### P T #### [address] Eosinophils/100 WBC (Bld) 1.0 % Normal . [facility] 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: Performed By: #### P T #### [address] Erythrocyte distribution width (RBC) [Ratio] 13.5 % Normal 12.0-14.8 [facility] 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: Performed By: #### P T #### [address] Hematocrit (Bld) [Volume fraction] 47.1 % Normal 38.8-50.0 [facility] 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: Performed By: #### P T #### [address] Hemoglobin (Bld) [Mass/Vol] 16.0 g/dL Normal 13.0-17.0 [facility] 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: Performed By: #### P T #### [address] Lymphocytes (Bld) [#/Vol] 1.3 10*3/uL Normal 1.00-4.8 [facility] 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: Performed By: #### P T #### [address] Lymphocytes/100 WBC (Bld) 13.2 % Normal . [facility] 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: Performed By: #### P T #### [address] MCH (RBC) [Entitic mass] 31.9 pg Normal 27.5-35.2 [facility] 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: Performed By: #### P T #### [address] MCV (RBC) [Entitic vol] 93.7 fL Normal 83.5-101 [facility] 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: Performed By: #### P T #### [address] Mean Corpuscular HGB Conc 34.0 g/dL Normal 32.5-35.6 [facility] 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: Performed By: #### P T #### [place] [address] [place] Monocytes (Bld) [#/Vol] 0.7 10*3/uL Normal 0.0-0.8 [facility] 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: Performed By: #### P T #### [place] [address] [place] Monocytes/100 WBC (Bld) 18.34 % Normal 0.00-20.00 [facility] 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: Performed By: #### P T #### [address] Monocytes/100 WBC (Bld) 7.1 % Normal . [facility] 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: Performed By: #### P T #### [address] Neutrophils (Bld) [#/Vol] 7.9 10*3/uL High 1.8-7.7 [facility] 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: Performed By: #### P T #### [address] Neutrophils/100 WBC (Bld) 78.5 % Normal . [facility] 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: Performed By: #### P T #### [address] NRBC% 0.1 /100{WBC} Normal 0-0.5 [facility] 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: Performed By: #### P T #### [address] Platelet mean volume (Bld) [Entitic vol] 9.1 fL Normal 6.6-10.1 [facility] 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: Performed By: #### P T #### [address] [place] [address] [place] Platelets (Bld) [#/Vol] 182 10*3/uL Normal 150-450 [facility] 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: Performed By: #### P T #### [facility] [address] RBC (Bld) [#/Vol] 5.03 10*6/uL Normal 3.90-5.60 [facility] 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: Performed By: #### P T #### [facility] [address] WBC (Bld) [#/Vol] 10.1 10*3/uL Normal 4.1-10.5 [facility] 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: Performed By: #### P T #### [facility] [address] Creatine Kinaseon 01-05-2024 CK [Catalytic activity/Vol] 66 U/L Normal 30- [facility] 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: Performed By: #### G LULS #### Point of Care testing , Creatine kinase [Enzymatic a ctivity/volume] in Serum or PlasmaOrdered By: PROVIDER TEMP on 01-05-2024 CK [Catalytic activity/Vol] 66 U/L - [facility] Creatinine [Mass/volume] in Serum or PlasmaOrdered By: PROVIDER TEMP on 01-05-2024 Creatinine [Mass/Vol] 0.98 mg/dL 0.70-1.30 [facility] Eosinophils Auto (Bld) [#/Vo l]Ordered By: PROVIDER TEMP on 01-05-2024 Eosinophils (Bld) [#/Vol] 0.1 10*3/uL 0.0-0.45 [facility] Eosinophils/100 WBC Auto (Bl d)Ordered By: PROVIDER TEMP on 01-05-2024 Eosinophils/100 WBC (Bld) 1.0 % . [facility] Erythrocyte distribution wid th Auto (RBC) [Ratio]Ordered By: PROVIDER TEMP on 01-05-2024 Erythrocyte distribution width (RBC) [Ratio] 13.5 % 12.0-14.8 [facility] Glucose [Mass/volume] in Ser um or PlasmaOrdered By: OSMANY DYER on 01-05-2024 Glucose [Mass/Vol] 283 mg/dL 70-100 [facility] 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: ADA recommended refe rence rangeRandom Glucose Reference Range is dependent on time and content of last meal. Glucose of more than 200 mg/dL in a nonstressed, ambulatory subject supports the diagnosis of Diabetes Mellitus. Glucose mean value [Mass/vol ume] in Blood Estimated from glycated hemoglobinOrdered By: Zeferino Parks on 01-05-2024 Average glucose Estimated from glycated hemoglobin (Bld) [Mass/Vol] 235 mg/dL [facility] Hematocrit Auto (Bld) [Volum e fraction]Ordered By: OSMANY DYER on 01-05-2024 Hematocrit (Bld) [Volume fraction] 47.1 % 38.8-50.0 [facility] Hemoglobin A1c percentageOrd ered By: Zeferino Parks on 01-05-2024 HbA1c (Bld) [Mass fraction] 9.8 % 4.3-5.6 [facility] 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: Increased risk for d iabetes: 5.7 - 6.4diabetes: >6.4glycemic control for adults with diabetes: <7.0 Hemoglobin [Mass/volume] in BloodOrdered By: OSMANY DYER on 01-05-2024 Hemoglobin (Bld) [Mass/Vol] 16.0 g/dL 13.0-17.0 [facility] INR in Platelet poor plasma by Coagulation assayOrdered By: Zeferino Parks on 01-05-2024 INR Coag (PPP) [Relative time] 4.1 {INR} [facility] 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: INR Therapeutic Rang e A) Pre- and Peroperative OAT started two weeks before surgery. NOT HIP SURGERY: 1.5 - 2.5 HIP SURGERY: 2 - 3B) Primary and secondary prevention of venous THROMBOSIS: 2 - 3C) Active venous thrombosis, pulmonary embolismand prevention of recurrent venous thrombosis: 2 - 3D) Prevention of arterial thromboembolismincluding patients with mechanical heart valves: 3 - 4.5 Leukocytes [#/volume] correc earnest for nucleated erythrocytes in Blood by Automated counOrdered By: OSMANY DYER on 01-05-2024 WBC corrected for nucl RBC Auto (Bld) [#/Vol] 10.1 10*3/uL 4.1-10.5 [facility] Lymphocytes Auto (Bld) [#/Vo l]Ordered By: PROVIDER TEMP on 01-05-2024 Lymphocytes (Bld) [#/Vol] 1.3 10*3/uL 1.00-4.8 [facility] Lymphocytes/100 WBC Auto (Bl d)Ordered By: PROVIDER TEMP on 01-05-2024 Lymphocytes/100 WBC (Bld) 13.2 % . [facility] MCH Auto (RBC) [Entitic mass ]Ordered By: PROVIDER TEMP on 01-05-2024 MCH (RBC) [Entitic mass] 31.9 pg 27.5-35.2 [facility] MCHC Auto (RBC) [Mass/Vol]Or dered By: PROVIDER TEMP on 01-05-2024 MCHC (RBC) [Mass/Vol] 34.0 g/dL 32.5-35.6 [facility] MCV Auto (RBC) [Entitic vol] Ordered By: PROVIDER TEMP on 01-05-2024 MCV (RBC) [Entitic vol] 93.7 fL 83.5-101 [facility] Monocyte distribution width [Entitic volume] in Blood by AutomatedOrdered By: PROVIDER TEMP on 01-05-2024 Monocyte distribution width Auto (Bld) [Entitic vol] 18.34 % 0.00-20.00 [facility] Monocytes Auto (Bld) [#/Vol] Ordered By: PROVIDER TEMP on 01-05-2024 Monocytes (Bld) [#/Vol] 0.7 10*3/uL 0.0-0.8 [facility] Monocytes/100 WBC Auto (Bld) Ordered By: PROVIDER TEMP on 01-05-2024 Monocytes/100 WBC (Bld) 7.1 % . [facility] Natriuretic peptide B [Mass/ Vol]Ordered By: Zeferino Parks on 01-05-2024 Natriuretic peptide B (Bld) [Mass/Vol] 80.0 pg/mL 5-100 [facility] Neutrophils Auto (Bld) [#/Vo l]Ordered By: PROVIDER TEMP on 01-05-2024 Neutrophils (Bld) [#/Vol] 7.9 10*3/uL 1.8-7.7 [facility] Neutrophils/100 WBC Auto (Bl d)Ordered By: PROVIDER TEMP on 01-05-2024 Neutrophils/100 WBC (Bld) 78.5 % . [facility] No Panel InformationOrdered By: PROVIDER TEMP on 01-05-2024 Estimated GFR (CKD-EPI) > 60.0 mL/Min [facility] Creatinine Clearance (Chem 59.78 [facility] Nucleated erythrocytes [Pres ence] in Blood by Automated countOrdered By: PROVIDER TEMP on 01-05-2024 Nucleated RBC Auto Ql (Bld) 0.1 /100{WBC} 0-0.5 [facility] Partial Thromboplastin Timeo n 01-05-2024 aPTT Coag (Bld) [Time] 45.0 s High 25.1-36.5 [facility] 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: Result Comment: A he matocrit value greater than 55% may lead to inaccurate results in coagulation testing. Patients having hematocrit values >55% require a special collection tube for coagulation studies. Please contact the laboratory at [phone] for redraw instructions. PERFORMED BY: [facility] [address] [place] [address] PATHOLOGIST CONSULTING IT ARCHITECT DARÍO ROGERS M.D. Performed By: #### G LUVITA #### Point of Care testing , Platelet mean volume Auto (B ld) [Entitic vol]Ordered By: PROVIDER TEMP on 01-05-2024 Platelet mean volume (Bld) [Entitic vol] 9.1 fL 6.6-10.1 [facility] Platelets Auto (Bld) [#/Vol] Ordered By: PROVIDER TEMP on 01-05-2024 Platelets (Bld) [#/Vol] 182 10*3/uL 150-450 [facility] Potassium [Moles/volume] in Serum or PlasmaOrdered By: PROVIDER TEMP on 01-05-2024 Potassium [Moles/Vol] 3.8 mmol/L 3.5-5.1 [facility] Prothrombin Time INRon 01-04 INR Coag (PPP) [Relative time] 4.1 {INR} Normal [facility] 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: Result Comment: INR Therapeutic Range A) Pre- and Peroperative OAT started two weeks before surgery. NOT HIP SURGERY: 1.5 - 2.5 HIP SURGERY: 2 - 3 B) Primary and secondary prevention of venous THROMBOSIS: 2 - 3 C) Active venous thrombosis, pulmonary embolism and prevention of recurrent venous thrombosis: 2 - 3 D) Prevention of arterial thromboembolism including patients with mechanical heart valves: 3 - 4.5 Performed By: #### G LULS #### Point of Care testing , PT Coag (PPP) [Time] 45.2 s High 9.0-12.9 [facility] 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: Result Comment: A he matocrit value greater than 55% may lead to inaccurate results in coagulation testing. Patients having hematocrit values >55% require a special collection tube for coagulation studies. Please contact the laboratory at [phone] for redraw instructions. Performed By: #### G LULS #### Point of Care testing , Prothrombin time (PT)Ordered By: Zeferino Parks on 01-05-2024 PT Coag (PPP) [Time] 45.2 s 9.0-12.9 [facility] 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: A hematocrit value g reater than 55% may lead to inaccurate results in coagulation testing. Patients having hematocrit values >55% require a special collection tube for coagulation studies. Please contact the laboratory at [phone] for redraw instructions. RBC Auto (Bld) [#/Vol]Ordere d By: PROVIDER TEMP on 01-05-2024 RBC (Bld) [#/Vol] 5.03 10*6/uL 3.90-5.60 [facility] Serum or plasma anion gap de terminationOrdered By: PROVIDER TEMP on 01-05-2024 Anion gap [Moles/Vol] 9.9 mmol/L 6.0-15.0 [facility] Sodium [Moles/volume] in Ser um or PlasmaOrdered By: PROVIDER TEMP on 01-05-2024 Sodium [Moles/Vol] 133 mmol/L 136-145 [facility] Troponin I High Sensitivityo n 01-05-2024 Troponin I High Sensitivity 18.8 pg/mL Normal 0.0-20.0 [facility] 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: Result Comment: PERF ORMED BY: [place] [address] PATHOLOGIST CONSULTING IT ARCHITECT DARÍO ROGERS M.D. Performed By: #### P T #### [address] Troponin I High Sensitivity 15.3 pg/mL Normal 0.0-20.0 [facility] 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: Result Comment: PERF ORMED BY: [address] [address] PATHOLOGIST CONSULTING IT ARCHITECT DARÍO ROGERS M.D. Performed By: #### G LULS #### Point of Care testing , Troponin I.cardiac [Mass/vol ume] in Serum or Plasma by Detection limit <= 0.01 ng/Ordered By: Liu Ferraro on 01-05-2024 Troponin I.cardiac DL <= 0.01 ng/mL [Mass/Vol] 21.9 pg/mL 0.0-20.0 [facility] Troponin I.cardiac [Mass/vol ume] in Serum or Plasma by Detection limit <= 0.01 ng/Ordered By: Zeferino Parks on 01-05-2024 Troponin I.cardiac DL <= 0.01 ng/mL [Mass/Vol] 15.3 pg/mL 0.0-20.0 [facility] Urea nitrogen [Mass/volume] in Serum or PlasmaOrdered By: PROVIDER TEMP on 01-05-2024 Urea nitrogen [Mass/Vol] 16 mg/dL 7-25 [facility] WBC Auto (Bld) [#/Vol]Ordere d By: PROVIDER TEMP on 01-05-2024 WBC (Bld) [#/Vol] 10.1 10*3/uL 4.1-10.5 [facility] XR chest 2V*on 01-05-2024 XR chest 2V* [facility] Main [address] [address] XRay Report Signed Patient: Debbi Zendejas MR#: [id number] : 1945 Acct:[id number] Age/Sex: 78 / M ADM Date: 01/05/24 Loc: ER Room: Type: PRE ER Attending Dr: Copies to: OSMANY DYER Ordering Provider: OSMANY DYER Date of Service: 01/05/24 XR/XR chest 2V*: Chest Pain Chest 2 views CLINICAL HISTORY: Midsternal/right-sided chest pain for one week. COMPARISON: None FINDINGS: Heart valve replacement is seen. Heart is normal in size. Elevation right hemidiaphragm. Hiatal hernia is present. Bibasilar atelectasis. No consolidation pneumothorax pleural effusion or free air. XR/XR chest 2V* IMPRESSION: BIBASILAR ATELECTASIS WITH ELEVATION RIGHT HEMIDIAPHRAGM. NO CONSOLIDATION TO SUGGEST PNEUMONIA. Impression dictated by: Abdi Garcia Jr., D.O.01/05/2024 3:25 PM Dictation Location: [place] [address] Transcribed By: [facility] 01/05/24 1525 Dictated By: Abdi Garcia Jr, DO 01/05/24 1525 Signed By: 01/05/24 1525 Normal [facility] Ambulatory Visit Summaryon 0 11-30-2023 Ambulatory Visit Summary DEBBI ZENDEJAS Gail :1945 Visit Date:11/30/2023 Ambulatory Visit Instructions Your Diagnosis History of prostate cancer BPH with urinary obstruction Impotence Anticoagulated Your Care Team Attending Physician - Zeferino CHARLES MD Primary Care Physician - BOOKER VILLEDA DO This Is Your Medications List nystatin-triamcinolone topical (nystatin-triamcinolone topical cream) tadalafil (tadalafil 20 mg Tab) tamsulosin (tamsulosin 0.4 mg Cap) Contact prescribing physician if questions or concerns acetaminophen (acetaminophen 500 mg Tab) baclofen (baclofen 20 mg Tab) lorazepam (LORazepam 0.5 mg Tab) polyethylene glycol 3350 (MiraLax oral powder for reconstitution) warfarin warfarin (warfarin 5 mg Tab) Procedures Performed Transurethral insertion of prostatic urethral lift implant (02/29/2020), Cystoscopy (02/08/2020), Circumcision (01/25/2020), Brachytherapy (08/05/2018), Transrectal biopsy of prostate using ultrasound (US) guidance (05/27/2018), AVR - Aortic valve replacement, Hemorrhoidectomy, Open repair of inguinal hernia. Discharge Vitals Temperature (Temporal Artery) 37 ?C Heart Rate (Peripheral) 62 Respiratory Rate 16 Blood Pressure 135/84 Height 177 cm Height 70 in Weight 73 kg Weight 160.6 lb BMI 23.3 What to do next Scheduled Follow-Up Appointments Thursday 10:15 AM EDT With: MELVIN BRAMBILA, Zeferino Jose Where: [facility] Lab Reportson 11-30-2023 Lab Reports [id number] [facility] Patient Educationon 11-30-19 Patient Education Urology Benign Prostatic Hyperplasia Benign prostatic hyperplasia (BPH) is an enlarged prostate gland that is caused by the normal aging process. The prostate may get bigger as a man gets older. The condition is not caused by cancer. The prostate is a walnut-sized gland that is involved in the production of semen. It is located in front of the rectum and below the bladder. The bladder stores urine. The urethra carries stored urine out of the body. An enlarged prostate can press on the urethra. This can make it harder to pass urine. The buildup of urine in the bladder can cause infection. Back pressure and infection may progress to bladder damage and kidney (renal) failure. What are the causes? This condition is part of the normal aging process. However, not all men develop problems from this condition. If the prostate enlarges away from the urethra, urine flow will not be blocked. If it enlarges toward the urethra and compresses it, there will be problems passing urine. What increases the risk? This condition is more likely to develop in men older than 50 years. What are the signs or symptoms? Symptoms of this condition include: ? Getting up often during the night to urinate. ? Needing to urinate frequently during the day. ? Difficulty starting urine flow. ? Decrease in size and strength of your urine stream. ? Leaking (dribbling) after urinating. ? Inability to pass urine. This needs immediate treatment. ? Inability to completely empty your bladder. ? Pain when you pass urine. This is more common if there is also an infection. ? Urinary tract infection (UTI). How is this diagnosed? This condition is diagnosed based on your medical history, a physical exam, and your symptoms. Tests will also be done, such as: ? A post-void bladder scan. This measures any amount of urine that may remain in your bladder after you finish urinating. ? A digital rectal exam. In a rectal exam, your health care provider checks your prostate by putting a lubricated, gloved finger into your rectum to feel the back of your prostate gland. This exam detects the size of your gland and any abnormal lumps or growths. ? An exam of your urine (urinalysis). ? A prostate specific antigen (PSA) screening. This is a blood test used to screen for prostate cancer. ? An ultrasound. This test uses sound waves to electronically produce a picture of your prostate gland. Your health care provider may refer you to a specialist in kidney and prostate diseases (urologist). How is this treated? Once symptoms begin, your health care provider will monitor your condition (active surveillance or watchful waiting). Treatment for this condition will depend on the severity of your condition. Treatment may include: ? Observation and yearly exams. This may be the only treatment needed if your condition and symptoms are mild. ? Medicines to relieve your symptoms, including: ? Medicines to shrink the prostate. ? Medicines to relax the muscle of the prostate. ? Surgery in severe cases. Surgery may include: ? Prostatectomy. In this procedure, the prostate tissue is removed completely through an open incision or with a laparoscope or robotics. ? Transurethral resection of the prostate (TURP). In this procedure, a tool is inserted through the opening at the tip of the penis (urethra). It is used to cut away tissue of the inner core of the prostate. The pieces are removed through the same opening of the penis. This removes the blockage. ? Transurethral incision (TUIP). In this procedure, small cuts are made in the prostate. This lessens the prostate's pressure on the urethra. ? Transurethral microwave thermotherapy (TUMT). This procedure uses microwaves to create heat. The heat destroys and removes a small amount of prostate tissue. ? Transurethral needle ablation (TUNA). This procedure uses radio frequencies to destroy and remove a small amount of prostate tissue. ? Interstitial laser coagulation (ILC). This procedure uses a laser to destroy and remove a small amount of prostate tissue. ? Transurethral electrovaporization (TUVP). This procedure uses electrodes to destroy and remove a small amount of prostate tissue. ? Prostatic urethral lift. This procedure inserts an implant to push the lobes of the prostate away from the urethra. Follow these instructions at home: ? Take oacx-gkt-wakslnn and prescription medicines only as told by your health care provider. ? Monitor your symptoms for any changes. Contact your health care provider with any changes. ? Avoid drinking large amounts of liquid before going to bed or out in public. ? Avoid or reduce how much caffeine or alcohol you drink. ? Give yourself time when you urinate. ? Keep all follow-up visits. This is important. Contact a health care provider if: ? You have unexplained back pain. ? Your symptoms do not get better with treatment. ? You develop side effects from the medicine (more content not included)... Normal [facility] Urology Office/Clinic Noteon 11-30-2023 Urology Office/Clinic Note Chief Complaint hx of prostate cancer HPI Staff 1 year f/u previous RWR pt. Dx: hx of prostate cancer (Brachytherapy 08/05/18), BPH with urinary obstruction (Urolift 02/29/20) and impotence. Flomax 0.4mg QD and Tadalafil 10mg PRN Current PSA done 10/22/23 is 0.07 and previous done 11/03/22 was 0.12. Dysuria: no Incomplete bladder emptying: no Hematuria: no Frequency: no Urgency: no Nocturia: 2x Stream: good steady no straining Leaking: a little once in a while Post void dripping: yes Wearing pads/ Depends: no Urge incontinence: no Stress incontinence: no Incontinence without Sensory Awareness: no Abdominal pain: no Flank pain: no Sexual complaints: no History of Present Illness Tests reviewed: reviewed UA and PSA. I have reviewed the previous health record information and history for this patient from Dr. Forbes. I have reviewed and verified the staff HPI to be accurate for this encounter. There have been no associated fever, chills, flank pain, or blood in the urine. Denies any urinary infections since last encounter. Review of Systems PHQ Score Initial Depression Screen Score: 0 SCORE ROS - Provider Constitutional: denies weight loss, denies hot flashes. Eyes: denies eye problems. Gastrointestinal: denies nausea, denies vomiting. Cardiovascular: denies chest pain or angina. Integumentary: no dryness Musculoskeletal: denies musculoskeletal symptoms. ENMT: denies otolaryngeal symptoms. Respiratory: no shortness of breath. Heme/Lymph: denies easy bleeding tendency, denies easy bruising tendency. Psychiatric: no confusion, no anxiety. Genitourinary: See HPI. Physical Exam Vitals & Measurements T: 37 ?C(Temporal Artery) HR: 62(Peripheral) RR: 16 BP: 135/84 HT: 70 in HT: 177 cm WT: 73 kg WT: 160.6 lb BMI: 23.3 General Appearance: alert, no distress, well nourished, well developed male. Assessment/Plan Former RWR pt. 1. History of prostate cancer (Z85.46: Personal history of malignant neoplasm of prostate) S/p brachytherapy 08/05/18. Follows w/ Dr. Catalan annually. PSA: 10/29/21- 0.12 11/03/22 - 0.12 10/22/23 - 0.07 PSA low and stable. Follow up in 1 year with PSA. 2. BPH with urinary obstruction (N40.1: Benign prostatic hyperplasia with lower urinary tract symptoms) S/p UroLift 02/29/20. Feels it helped urination, however states he was hospitalized due to blood loss. Taking Flomax 0.4mg qd. Pleased with medication management. Denies urgency or leakage. UA today negative. Denies infections. 3. Impotence (N52.9: Male erectile dysfunction, unspecified) Taking Cialis 20mg prn. 4. Anticoagulated (Z79.01: assisted (current) use of anticoagulants) Warfarin. Elevated risk for periop complications. Follow-up With When Contact Information MELVIN BRAMBILA, Zeferino Jose, URL [address] [place] [address]- Additional Instructions: 1 year with PSA Patient Education Benign Prostatic Hyperplasia Luz Marina Salvador, personally scribed for Dr. Charles on 11/30/2023 11:06:51. . Documentation recorded by the Luz Marina potter, accurately reflects the services(s) I performed and decisions made by me. Authenticated by Dr. Charles on 11/30/2023 11:08:57. 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 Medications acetaminophen 500 mg Tab, 500 mg= 1 tab(s), Oral, Bedtime baclofen 20 mg Tab, 20 mg= 1 tab(s), Oral, BID, PRN LORazepam 0.5 mg Tab, 0.5 mg= 1 tab(s), Oral, Once a day (at bedtime) MiraLax oral powder for reconstitution, 17 gm, Oral, Daily nystatin-triamcinolone topical cream, 1 liban, Topical, Daily tadalafil 20 mg Tab, See Instructions, 3 refills tamsulosin 0.4 mg Cap, 0.4 mg= 1 cap(s), Oral, BID, 11 refills warfarin, 5 mg, Oral, Daily warfarin 5 mg Tab, 2.5 mg= 0.5 tab(s), Oral, Thursday Allergies No Known Medication Allergies Social History Alcohol - Denies Alcohol Use, 01/13/2020 Substance Abuse - Denies Substance Abuse, 01/13/2020 Tobacco - Denies Tobacco Use, 07/07/2019 Former smoker, quit more than 30 days ago Tobacco Use:. Never Smokeless Tobacco Use:., 11/17/2022 Family History Diabetes: Mother and Father. Primary malignant n (more content not included)... Normal [facility] 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: Result Comment: Elec tronically Signed By: MELVIN BRAMBILA, Zeferino Santos.br\Date and Time Signed: 11/30/23 11:09 EDT\.br\Electronically Co-Signed By: Luz Marina Kaplan\Date and Time Co-Signed: 11/30/23 11:07 EDT POCT Protime / INRon 11-25- 024 INR Coag (PPP) [Relative time] 2.6 {INR} Abnormal 0.8 - 1.2 [facility] Interpretation and review of laboratory results Abnormal [facility] CNOVon 11-05-2023 CNOV Office Visit (RADTSA ) -- DEBBI ZENDEJAS ([id number]) 1945 M Date Time Provider Department 11/05/23 10:45 AM Cande CATALAN During your visit today, we recorded the following information about you: Temperature Pulse Respiration Blood pressure 96.7 degrees 98/minute 18/minute 148/91 Weight 73.3 kg Alize Pinedo RN 11/05/2023 10:51 AM Signed AUA 23 CINDY Riojas G Phillip, MD 11/06/2023 3:17 PM Signed Radiation Oncology - Follow Up Note PATIENT NAME: Debbi Zendejas PATIENT DIAGNOSIS: Prostate adenocarcinoma, initial PSA 6.59, biopsy Mendon score 3 + 3 = 6 (grade group 1), clinical stage T1c, N0, M0, stage I . BRACHYTHERAPY SUMMARY: 08/05/18 Prostate brachytherapy, I-125, 145 agustin, 88 seeds 23 needles, 32.82 mCi INTERVAL HISTORY: Doing well. Denies new problems or concerns. PSA HISTORY: PSA (ng/mL) Date Value 10/22/2023 0.07 11/03/2022 0.12 10/29/2021 0.12 11/06/2020 0.21 05/03/2020 0.26 09/13/2019 0.40 ALLERGIES No Known Allergies ferrous sulfate 325 mg (65 mg iron) tablet Take 325 mg by mouth at bedtime as needed. tamsulosin (FLOMAX) 0.4 mg Take 0.4 mg by mouth twice daily. LORazepam (ATIVAN) 0.5 mg Take 0.25-0.5 mg by mouth daily at bedtime. warfarin (COUMADIN) 5 mg tablet Take 5 mg by mouth once daily. baclofen (LIORESAL) 20 mg tablet TAKE 1 TABLET BY MOUTH TWICE DAILY WITH FOOD OR MILK NEEDED for spasms REVIEW OF SYSTEMS: D/N = na Hematuria: No Catheter use: no Medications to aid urination: no - Total AUA Score: 23 Bowel movement frequency: 1/day Bowel movement quality: normal Blood per rectum: none Erectile: Partial with medication PHYSICAL EXAM: BP 148/91 Pulse 98 Temp (!) 35.9 ?C (96.7 ?F) Resp 18 Wt 73.3 kg (161 lb 9.6 oz) SpO2 93% KPS: 100 General appearance: Alert and oriented. No acute distress. Rectal exam def Skin: Skin color, texture, turgor normal, no suspicious rashes or lesions. 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 Patient overall doing well. PSA low, and stable. Discussed seeing patient on an as-needed basis, patient wishes to continue PSA or surveillance. Plan to see patient back in 1 year with repeat PSA. Signed by: Cande Catalan MD cc: Booker Villeda DO Portions of the above note extracted and edited from previous visit as well as active information included in the EMR. Referring Provider: Cande CATALAN [[id number]] Allergies As of Date: 11/05/2023 (No Known Allergies) Date Reviewed: 11/05/2023 Reviewed by: Alize Pinedo RN - Fully Assessed Reason for Visit: Prostate Cancer [590] Primary Visit Diagnosis:Prostate cancer (HCC) [C61] Order(s):PSA/PROSTSPECAG DIAG [SQPSA] Order #: [id number] FUTURE Prescriptions as of 11/06/2023 - ferrous sulfate 325 mg (65 mg iron) tablet Take 325 mg by mouth at bedtime as needed. - tamsulosin (FLOMAX) 0.4 mg Take 0.4 mg by mouth twice daily. - LORazepam (ATIVAN) 0.5 mg Take 0.25-0.5 mg by mouth daily at bedtime. - warfarin (COUMADIN) 5 mg tablet Take 5 mg by mouth once daily. - baclofen (LIORESAL) 20 mg tablet TAKE 1 TABLET BY MOUTH TWICE DAILY WITH FOOD OR MILK NEEDED for spasms Problem List As Of Date 11/05/2023 Noted Resolved Prostate cancer (HCC) [C61] 06/30/2018 Visit Notes: >> Alize Pinedo RN [facility] Nov 05, 2023 10:50 AM Status: Signed AUA 23 Alize Pinedo RN Disposition: Return in about 1 year (around 11/04/2024). Follow-up and Disposition History for Encounter Date Provider Department Center 11/05/2023 [id number] CATALAN PAUL NORIEGA Encounter Status:Closed by Cande CATALAN on 11/06/23 Normal [facility] No Panel Informationon 10-22 Prostate Specific Antigen 0.07 ng/mL <2.60 [facility] 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: Total PSA test metho dology used is the Electrochemiluminescence Immunoassay by [employer]. Total PSA values by differing methodologies cannot be interchanged. PSA SerPl-mCncon 10-22-2023 Prostate specific Ag [Mass/Vol] 0.07 ng/mL Normal <2.60 [facility] 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: Order Comment: Speci men Type: BLOOD SPECIMEN Ordering Facility: [facility] Address: [address] [place] [address] Result Comment: Tota l PSA test methodology used is the Electrochemiluminescence Immunoassay by [employer]. Total PSA values by differing methodologies cannot be interchanged. Performed By: #### 2 [id number] #### [facility] CLIA [id number] [address] [place], [place] [address] [address] [place] POCT Protime / INRon 024 INR Coag (PPP) [Relative time] 3.0 {INR} Abnormal 0.8 - 1.2 [facility] Interpretation and review of laboratory results Abnormal [facility] POCT Protime / INRon 023 INR Coag (PPP) [Relative time] 2.4 {INR} Abnormal 0.8 - 1.2 [facility] Interpretation and review of laboratory results Abnormal [facility] US SCROTUMon 01-29-2021 US SCROTUM EXAMINATION: US SCRO LILY HISTORY: Disorder of male genital organ COMPARISON: CT exam 05/04/2020 TECHNIQUE: High-resolution sonographic imaging of the scrotum and contents was performed. FINDINGS: The right testicle is normal in size, contour and homogeneous echotexture measuring 3.4 x 2.9 cm. No focal intratesticular mass. Normal arterial and venous flow. PSV/EDV: 5.5/2.3 cm/s. The right epididymis is normal in size and echotexture. Several areas of subcentimeter anechoic echogenicity, spermatoceles versus cysts The left testicle is atrophic in size measuring 2.4 x 1.2 x 0.9 cm. Normal homogeneous echotexture. Normal arterial and venous flow. PSV/EDV: 2.9/1.0. The left epididymis is not definitively seen. Identified in the left hemiscrotum is an 11.2 x 7.2 x 5.9 cm complex cystic structure. Flow is identified along the periphery but not centrally. IMPRESSION: Left testicular atrophy 11.2 cm complex cystic lesion in the left hemiscrotum Electronically authenticated by: LAURA ARANA Date: 2021-01-29 13:53 Normal [facility] CT PELVIS WO CONon 0 CT PELVIS WO CON EXAMINATION: CT PELV IS WO CON HISTORY: Pain ; acute right hip and femur pain after falling today COMPARISON: 02/29/2020 CT abdomen pelvis with contrast TECHNIQUE: Axial, Coronal, and Sagittal CT images obtained without IV contrast. Dose reduction techniques were achieved by using automated exposure control and/or adjustment of mA and/or kV according to patient size and/or use of iterative reconstruction technique. FINDINGS: BOWEL: No abnormality of the visible bowl. LYMPH NODES: No adenopathy. URINARY BLADDER: No visible focal wall thickening, lesion, or calculus. PELVIC ORGANS: Prior radioactive prostate seeding. ANTERIOR WALL: Large left inguinal hernia containing fluid extending into the scrotum with large amount of fluid within the left hemiscrotum. BONES: No bone lesion or fracture. OTHER: Large walled off fluid collection within the anterior lower pelvis which connects with the left inguinal hernia and extends into the scrotum. The pelvic component is 11 x 9 x 7 cm. IMPRESSION: 1. No acute bone abnormality or significant degenerative joint disease with specific attention to the right hip. 2. Large pelvic fluid collection extending into the left inguinal canal and into the left hemiscrotum which has increased in size since the prior study, but is better defined and appears well-contained, likely old hematoma. Follow-up to document clearing is recommended. Electronically authenticated by: YELENA MAGALLANES Date: 2020-05-04 11:32 Normal [facility] CULTURE URINEon 03-03-2020 CULTURE URINE Isolate 1 Escherichia coli >100,000 cfu/ml of ORGANISM 1 Escherichia coli ANTIBIOTIC M.I.C RX STATUS Ampicillin >=32 R F Ampicillin/Sulbactam 16 I F Piperacillin/Tazobactam <=4 S F Cefazolin <=4 S F Ceftazidime <=1 S F Ceftriaxone <=1 S F Ertapenem <=0.5 S F Imipenem <=0.25 S F Amikacin <=2 S F Gentamicin <=1 S F Tobramycin <=1 S F Ciprofloxacin >=4 R F Levofloxacin >=8 R F Nitrofurantoin <=16 S F Trimethoprim/Sulfamethoxaz ole <=20 S F Normal [facility] 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: Performed By: #### B ASSEMBLY ASSOCIATE, BMP, LIVER, TROP #### [facility] [address] [address] Jerman Fierro CTA CHEST WO W CONon 020 CTA CHEST WO W CON EXAMINATION: CTA [facility]ENNIE ST WO W CON, CT CHEST W CON, CT ABD/PELV W CON HISTORY: SHORTNESS OF BREATH. COMPARISON: Chest radiograph, today at 7:23 PM. TECHNIQUE: CT angiography of the pulmonary arteries following the administration of 100 mL of Visipaque 270 intravenous contrast. Coronal and sagittal MIP (maximum intensity projection) images were performed. Images were obtained of the abdomen and pelvis with the same contrast bolus. Dose reduction techniques were achieved by using automated exposure control and/or adjustment of mA and/or kV according to patient size and/or use of iterative reconstruction technique. FINDINGS: There is adequate opacification of the pulmonary arteries. No filling defects. There is aneurysmal dilatation of the ascending thoracic aorta measuring up to 5.2 cm. The distal arch and descending thoracic aorta is normal caliber. The patient does have a prosthetic aortic valve. The right hemidiaphragm is elevated with bibasilar atelectasis and ground glass infiltrates right greater than left. There do appear to be some parenchymal calcifications in the right lung base. A moderate hiatal hernia is present. In the abdomen, there is trace ascites in the right upper quadrant. No evidence of adrenal mass or adenopathy. The aorta is normal caliber. High density ascites is present in the paracolic gutters bilaterally and there is a large hemorrhage seen in the right lower quadrant extending into the pelvis and left side of the groin. The largest component of the hemorrhage at the level of the acetabulum on image 135 of sequence 7 measures approximately 12 x 9.6 cm. There is no evidence of bowel obstruction, pneumatosis, or pneumoperitoneum. The patient has a Mcgill catheter decompressing the bladder and numerous brachytherapy beads are present in the prostate. No suspicious lytic or sclerotic osseous lesions. IMPRESSION: 1. The dominant finding is a large pelvic hemorrhage extending into the left inguinal canal and scrotum. The patient reportedly underwent a urologic surgical procedure on the prostate today which is presumed to be the source of the bleeding. There is no discernible arterial blush to definitively characterize the vascular source. Minimal hemoperitoneum is seen extending into the upper quadrants. 2. There is no evidence of pulmonary embolism. 3. Ascending thoracic aortic aneurysm is noted. The patient has a prosthetic aortic valve. 4. Elevated right hemidiaphragm with bibasilar atelectasis right greater than left. There is no way to exclude lower lobe pneumonia. 5. Large hiatal hernia. 6. There are brachytherapy beads in the prostate gland. The patient does have a Mcgill catheter in place. Critical results were called by Dr. Anne Harrington MD to Dr. Woody At 02/29/2020 10:31 PM EDT. Electronically authenticated by: ANNE HARRINGTON Date: 2020-03-01 19:06 Normal LACTATE/LACTIC ACIDon 2019 Lactate [Moles/Vol] 6.9 mmol/L Critically high 0.7-2.0 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: Result Comment: test repeated critical value verified Performed By: #### B ASSEMBLY ASSOCIATE, BMP, LIVER, TROP #### [facility] [address] [place] [address] Jermanefrain Arenasen POINT OF CARE GLUCOSEon 02-06 Glucose [Mass/Vol] 197 mg/dL Critically high 74-106 [facility] 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: Performed By: #### P OCGLUC #### [facility] [address] [place] [address] Jerman Sri TYPE AND SCREENon 03-01-2020 TYPE AND SCREEN Negative Normal 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: Performed By: #### B ASSEMBLY ASSOCIATE, BMP, LIVER, TROP #### [facility] [address] [place] [address] Jerman Sri BNPon 02-29-2020 Natriuretic peptide B (Bld) [Mass/Vol] 952.0 pg/mL Critically high <=900.0 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: Performed By: #### B ASSEMBLY ASSOCIATE, BMP, LIVER, TROP #### [facility] [address] [place] [address] Jerman Sri CBC W MANUAL DIFFon 02-29-20 20 ATYPICAL LYMPH # Normal 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: Performed By: #### B ASSEMBLY ASSOCIATE, BMP, LIVER, TROP #### [facility] [address] [place] [address] Jerman Sri ATYPICAL LYMPH % Normal [facility] 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: Performed By: #### B ASSEMBLY ASSOCIATE, BMP, LIVER, TROP #### [facility] [address] [place] [address] Jerman Sri BAND # 0.7 103/ul Critically high 0.0-0.3 [facility] 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: Performed By: #### B ASSEMBLY ASSOCIATE, BMP, LIVER, TROP #### [facility] [address] [place] [address] Jerman Sri BAND % 2 % Normal 0-5 [facility] 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: Performed By: #### B ASSEMBLY ASSOCIATE, BMP, LIVER, TROP #### [facility] [address] [place] [address] Jerman Sri BASOM # 0.00 103/ul Normal 0.00-0.10 [facility] 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: Performed By: #### B ASSEMBLY ASSOCIATE, BMP, LIVER, TROP #### [facility] [address] [place] [address] Jerman Sri BASOM % 0.0 % Critically low 0.2-2.0 [facility] 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: Performed By: #### B ASSEMBLY ASSOCIATE, BMP, LIVER, TROP #### [facility] [address] [place] [address] Jerman Sri BLAST # Normal [facility] 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: Performed By: #### B ASSEMBLY ASSOCIATE, BMP, LIVER, TROP #### [facility] [address] [place] [address] Jerman Sri BLAST % Normal [facility] 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: Performed By: #### B ASSEMBLY ASSOCIATE, BMP, LIVER, TROP #### [facility] [address] [place] [address] Jerman Sri CORRECTED WBC Normal 4.0-11.0 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: Performed By: #### B ASSEMBLY ASSOCIATE, BMP, LIVER, TROP #### [facility] [address] [place] [address] Jerman Sri EOS # 0.00 103/ul Normal 0.00-0.70 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: Performed By: #### B ASSEMBLY ASSOCIATE, BMP, LIVER, TROP #### [facility] [address] [place] [address] Jerman Sri EOS% 0.0 % Critically low 0.9-7.0 [facility] 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: Performed By: #### B ASSEMBLY ASSOCIATE, BMP, LIVER, TROP #### [facility] [address] [place] [address] Jerman Sri HCT 35.8 % Critically low 42.0-54.0 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: Performed By: #### B ASSEMBLY ASSOCIATE, BMP, LIVER, TROP #### [facility] [address] [place] [address] Jerman Sri HGB 12.0 g/dl Critically low 14.0-18.0 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: Performed By: #### B ASSEMBLY ASSOCIATE, BMP, LIVER, TROP #### [facility] [address] [place] [address] Jerman Sri LYMPHM # 1.41 103/ul Normal 1.20-3.80 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: Performed By: #### B ASSEMBLY ASSOCIATE, BMP, LIVER, TROP #### [facility] [address] [place] [address] Jerman Sri LYMPHM% 4.0 % Critically low 20.5-60.0 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: Performed By: #### B ASSEMBLY ASSOCIATE, BMP, LIVER, TROP #### [facility] [address] [place] [address] Jerman Sri MCH 33.1 pg Normal 25.9-34.0 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: Performed By: #### B ASSEMBLY ASSOCIATE, BMP, LIVER, TROP #### [facility] [address] [place] [address] Jerman Sri MCHC 33.5 g/dl Normal 29.9-35.2 [facility] 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: Performed By: #### B ASSEMBLY ASSOCIATE, BMP, LIVER, TROP #### [facility] [address] [place] [address] Jerman Sri MCV 98.6 fL Critically high 80.0-94.0 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: Performed By: #### B ASSEMBLY ASSOCIATE, BMP, LIVER, TROP #### [facility] [address] [place] [address] Jerman Sri METAMYELOCYTE # Normal [facility] 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: Performed By: #### B ASSEMBLY ASSOCIATE, BMP, LIVER, TROP #### [facility] [address] [place] [address] Jerman Sri METAMYELOCYTE % Normal [facility] 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: Performed By: #### B ASSEMBLY ASSOCIATE, BMP, LIVER, TROP #### [facility] [address] [place] [address] Jerman Sri MONOM# 2.46 103/ul Critically high 0.30-0.80 [facility] 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: Performed By: #### B ASSEMBLY ASSOCIATE, BMP, LIVER, TROP #### [facility] [address] [address] Jerman Sri MONOM% 7.0 % Normal 1.7-12.0 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: Performed By: #### B ASSEMBLY ASSOCIATE, BMP, LIVER, TROP #### [facility] [address] [address] Jerman Sri MPV 11.2 fL Normal 9.5-13.5 [facility] 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: Performed By: #### B ASSEMBLY ASSOCIATE, BMP, LIVER, TROP #### [facility] [address] [address] Jerman Sri MYELOCYTE # Normal [facility] 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: Performed By: #### B ASSEMBLY ASSOCIATE, BMP, LIVER, TROP #### [facility] [address] [place] [address] Jerman Sri MYELOCYTE % Normal [facility] 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: Performed By: #### B ASSEMBLY ASSOCIATE, BMP, LIVER, TROP #### [facility] [address] [place] [address] Jerman Sri NRBC Normal [facility] 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: Performed By: #### B ASSEMBLY ASSOCIATE, BMP, LIVER, TROP #### [facility] [address] [place] [address] Jerman Sri PLT 185 103/ul Normal 150-450 [facility] 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: Performed By: #### B ASSEMBLY ASSOCIATE, BMP, LIVER, TROP #### [facility] [address] [address] Jerman Sri RBC 3.63 106/ul Critically low 4.70-6.10 [facility] 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: Performed By: #### B ASSEMBLY ASSOCIATE, BMP, LIVER, TROP #### [facility] [address] [place] [address] Jerman Sri RDW 12.5 % Normal 11.0-15.0 [facility] 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: Performed By: #### B ASSEMBLY ASSOCIATE, BMP, LIVER, TROP #### [facility] [address] [place] [address] Jerman Fierro SEG # 30.62 103/ul Critically high 1.40-6.50 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: Performed By: #### B ASSEMBLY ASSOCIATE, BMP, LIVER, TROP #### [facility] [address] [place] [address] Jerman Fierro SEG % 87.0 % Critically high 43.0-75.0 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: Performed By: #### B ASSEMBLY ASSOCIATE, BMP, LIVER, TROP #### [facility] [address] [place] [address] Jerman Fierro WBC 35.2 103/ul Critically high 4.0-11.0 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: Result Comment: test repeated critical value verified Performed By: #### B ASSEMBLY ASSOCIATE, BMP, LIVER, TROP #### [facility] [address] [place] [address] Jerman Fierro CULTURE BLOODon 02-29-2020 Microscopic examination of blood, culture Culture Observations: No growth at 5 days Normal 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: Performed By: #### B ASSEMBLY ASSOCIATE, BMP, LIVER, TROP #### [facility] [address] [place] [address] Jerman Fierro Microscopic examination of blood, culture Culture Observations: No growth at 5 days Normal 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: Performed By: #### B ASSEMBLY ASSOCIATE, BMP, LIVER, TROP #### [facility] [address] [place] [address] Jerman Fierro D-DIMERon 02-29-2020 D-DIMER COMMENTS SEE BELOW Normal [facility] 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: Result Comment: Incr eases in D-Dimer concentration observed with thromboembolic events can be variable due to localization, size, and age of the thrombus. Therefore, a thromboembolic event cannot be diagnosed with certainty on the basis of the reference range. D-Dimers may also be elevated for a variety of disorders including: advanced age, , coronary disease, cancer, liver disease, infection, inflammation, hematoma, DIC, trauma, post-surgery, diabetes, thrombolytic or anticoagulant therapy, stress, and generalizd hospitalization. Performed By: #### D DIM #### [facility] [address] [place] [address] Jerman Sri Fibrin D-dimer FEU IA (Bld) [Mass/Vol] 4.29 ug/mL Critically high 0.19-0.50 [facility] 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: Result Comment: test repeated critical value verified Performed By: #### D DIM #### [facility] [address] [place] [address] Jerman Sri ER URINE PROFILEon 0 Bilirubin Ql (U) SMALL Normal NEGATIVE [facility] 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: Performed By: #### GHISLAINE EGANRO #### [facility] [address] [place] [address] Jerman Sri Clarity (U) CLOUDY Normal [facility] 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: Performed By: #### YENIFER EGAN #### [facility] [address] [place] [address] Jerman Sri Color (U) DK. ORANGE Normal YELLOW [facility] 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: Performed By: #### YENIFER EGAN #### [facility] [address] [place] [address] Jerman Sri ERUAHD A micrscopic examina tion will be performed if indicated. Normal [facility] 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: Performed By: #### YENIFER EGAN #### [facility] [address] [place] [address] Jerman Sri Glucose Ql (U) 500 mg/dl Normal NEGATIVE [facility] 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: Performed By: #### YENIFER EGAN #### [facility] [address] [place] [address] Jerman Sri Hemoglobin Ql (U) LARGE Normal NEGATIVE [facility] 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: Performed By: #### YENIFER EGAN #### [facility] [address] [place] [address] Jerman Sri Ketones Ql (U) Negative Normal NEGATIVE [facility] 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: Performed By: #### YENIFER EGAN #### [facility] [address] [place] [address] Jerman Sri LEUKOCYTES TRACE Normal NEGATIVE [facility] 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: Performed By: #### GHISLAINE EGANRO #### [facility] [address] [id number] Jerman Sri Nitrite Ql (U) Positive Normal NEGATIVE 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: Performed By: #### YENIFER EGAN #### [facility] [address] [id number] Jerman Sri pH (U) 5.0 [pH] Normal 5-9 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: Performed By: #### YENIFER EGAN #### [facility] [address] [place], [place] [id number] Jerman Sri Protein Ql (U) >300 Normal 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: Performed By: #### YENIFER EGAN #### [facility] [address] [place] [address] Jerman Sri SPEC GRAVITY >=1.030 Normal 1.005-<=1.0 25 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: Performed By: #### YENIFER EGAN #### [facility] [address] [place], [place] [phone] Jerman Sri UR MICRO IND INDICATED Normal 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: Performed By: #### YENIFER EGAN #### [facility] [address] [place] [address] Jerman Sri Urobilinogen Qn (U) 1.0 {Keren'U}/dL Normal [facility] 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: Performed By: #### GHISLAINE EGANRO #### [facility] [address] [place], [place] [id number] Jerman Sri LACTATE/LACTIC ACIDon 2019 Lactate [Moles/Vol] 10.7 mmol/L Critically high 0.7-2.0 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: Result Comment: test repeated critical value verified Performed By: #### L ACT #### [facility] [address] [place], [place] [id number] Jerman Sri LIVER PROFILEon 02-29-2020 Albumin [Mass/Vol] 3.7 g/dL Normal 3.5-5.0 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: Performed By: #### B ASSEMBLY ASSOCIATE, BMP, LIVER, TROP #### [facility] [address] [place] [address] Jerman Sri Albumin/Globulin [Mass ratio] 1.3 {ratio} Normal 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: Performed By: #### B ASSEMBLY ASSOCIATE, BMP, LIVER, TROP #### [facility] [address] [place] [address] Jerman Sri ALP [Catalytic activity/Vol] 82 U/L Normal 38-126 [facility] 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: Performed By: #### B ASSEMBLY ASSOCIATE, BMP, LIVER, TROP #### [facility] [address] [place] [address] Jerman Sri ALT [Catalytic activity/Vol] 26 U/L Normal 21-72 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: Performed By: #### B ASSEMBLY ASSOCIATE, BMP, LIVER, TROP #### [facility] [address] [place] [address] Jerman Sri AST [Catalytic activity/Vol] 18 U/L Normal 17-59 [facility] 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: Performed By: #### B ASSEMBLY ASSOCIATE, BMP, LIVER, TROP #### [facility] [address] [place] [address] Jerman Sri BILI, CONJUGATED 0.3 mg/dL Normal 0.0-0.3 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: Performed By: #### B ASSEMBLY ASSOCIATE, BMP, LIVER, TROP #### [facility] [address] [place] [address] Jerman Sri Bilirubin [Mass/Vol] 1.2 mg/dL Normal 0.2-1.3 [facility] 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: Performed By: #### B ASSEMBLY ASSOCIATE, BMP, LIVER, TROP #### [facility] [address] [place] [address] Jerman Sri Globulin (S) [Mass/Vol] 2.9 g/dL Normal 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: Performed By: #### B ASSEMBLY ASSOCIATE, BMP, LIVER, TROP #### [facility] [address] [place], [place] [phone] Jerman Sri Protein [Mass/Vol] 6.6 g/dL Normal 6.1-8.2 [facility] 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: Performed By: #### B ASSEMBLY ASSOCIATE, BMP, LIVER, TROP #### [facility] [address] [address] Jerman Sri PH VENOUS BLOODon 02-29-2020 PCO2 VENOUS 52.1 mmHg Critically high 40.0-52.0 [facility] 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: Performed By: #### P HVEN #### [facility] [address] [address] Jerman Sri pH VENOUS 7.23 Critically low 7.33-7.43 [facility] 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: Performed By: #### P HVEN #### [facility] [address] [place] [address] Jerman Sri PROF CHEM 8 (BAS METB)on Anion gap [Moles/Vol] 20.9 mmol/L Normal Th [facility] 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: Performed By: #### B ASSEMBLY ASSOCIATE, BMP, LIVER, TROP #### [facility] [address] [address] Jerman Sri Calcium [Mass/Vol] 9.0 mg/dL Normal 8.4-10.2 [facility] 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: Performed By: #### B ASSEMBLY ASSOCIATE, BMP, LIVER, TROP #### [facility] [address] [place] [address] Jerman Sri Chloride [Moles/Vol] 92 mmol/L Critically low 98-107 [facility] 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: Performed By: #### B ASSEMBLY ASSOCIATE, BMP, LIVER, TROP #### [facility] [address] [address] Jerman Sri CO2 [Moles/Vol] 20.8 mmol/L Critically low 22.0-30.0 [facility] 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: Performed By: #### B ASSEMBLY ASSOCIATE, BMP, LIVER, TROP #### [facility] [address] [address] Jerman Sri Creatinine [Mass/Vol] 1.72 mg/dL Critically high 0.66-1.25 [facility] 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: Performed By: #### B ASSEMBLY ASSOCIATE, BMP, LIVER, TROP #### [facility] [address] [place] [address] Jerman Sri EGFR-AF MALAYSIAN 47 mL/min/1.73m2 Critically low >=60 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: Performed By: #### B ASSEMBLY ASSOCIATE, BMP, LIVER, TROP #### [facility] [address] [place] [address] Jerman Sri EGFR-NON AF MALAYSIAN 39 mL/min/1.73m2 Critically low >=60 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: Performed By: #### B ASSEMBLY ASSOCIATE, BMP, LIVER, TROP #### [facility] [address] [place] [address] Jerman Sri Glucose [Mass/Vol] 336 mg/dL Critically high 74-106 T [facility] 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: Performed By: #### B ASSEMBLY ASSOCIATE, BMP, LIVER, TROP #### [facility] [address] [place] [address] Jerman Sri Potassium [Moles/Vol] 3.7 mmol/L Normal 3.4-5.0 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: Performed By: #### B ASSEMBLY ASSOCIATE, BMP, LIVER, TROP #### [facility] [address] [place] [address] Jerman Sri Sodium [Moles/Vol] 130 mmol/L Critically low 137-145 Th [facility] 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: Performed By: #### B ASSEMBLY ASSOCIATE, BMP, LIVER, TROP #### [facility] [address] [place] [address] Jerman Sri Urea nitrogen [Mass/Vol] 17.0 mg/dL Normal 9.0-20.0 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: Performed By: #### B ASSEMBLY ASSOCIATE, BMP, LIVER, TROP #### [facility] [address] [place] [address] Jerman Sri Urea nitrogen/Creatinine [Mass ratio] 9.9 mg/mg Normal 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: Performed By: #### B ASSEMBLY ASSOCIATE, BMP, LIVER, TROP #### [facility] [address] [address] Jerman Sri PROTIMEon 02-29-2020 INR Coag (PPP) [Relative time] 1.03 {INR} Normal 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: Performed By: #### B ASSEMBLY ASSOCIATE, BMP, LIVER, TROP #### [facility] [address] [place] [address] Jerman Sri INR GUIDELINES SEE BELOW Normal [facility] 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: Result Comment: BESSY RED INR: 2.0 - 3.0 CONDITIONS NOT LISTED BELOW 2.5 - 3.5 FOR PROSTHETIC HEART VALVE REPLACEMENT 2.5 - 3.5 RECURRENT THROMBOSIS Performed By: #### B ASSEMBLY ASSOCIATE, BMP, LIVER, TROP #### [facility] [address] [place] [address] Jerman Sri PT Coag (PPP) [Time] 10.7 s Normal 9.0-11.6 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: Performed By: #### B ASSEMBLY ASSOCIATE, BMP, LIVER, TROP #### [facility] [address] [place] [address] Jerman Sri PT NORMAL PLEASE NOTE: NORMAL RANGE CHANGE 05-25-2014 DUE TO REAGENT LOT CHANGE Normal Comment on above: Performed By: #### B ASSEMBLY ASSOCIATE, BMP, LIVER, TROP #### [facility] [address] [place] [address] Jermanefrain Fierro PTTon 02-29-2020 aPTT Coag (Bld) [Time] 25.9 s Normal 22.3-36.2 [facility] Comment on above: Performed By: #### B ASSEMBLY ASSOCIATE, BMP, LIVER, TROP #### [facility] [address] [place] [address] Jerman Sri PTT NORMAL PLEASE NOTE: NORMAL RANGE CHANGE 08-01-2015 DUE TO REAGENT LOT CHANGE Normal [facility] Comment on above: Performed By: #### B ASSEMBLY ASSOCIATE, BMP, LIVER, TROP #### [facility] [address] [place] [address] Jerman Sri TROPONIN - Ion 02-29-2020 TROP 0.019 ng/mL Normal <=0.034 Comment on above: Performed By: #### B ASSEMBLY ASSOCIATE, BMP, LIVER, TROP #### [facility] [address] [place] [address] Jerman Sri TROPONIN RANGE SEE BELOW Normal [facility] Comment on above: Result Comment: <0.0 34 ng/ml NEGATIVE 0.034-0.119 INDETERMINATE 0.120 AMI CUT OFF Performed By: #### B ASSEMBLY ASSOCIATE, BMP, LIVER, TROP #### [facility] [address] [place] [address] Jerman Sri URINE MICROSCOPIC ONLYon BACTERIA LARGE Normal NONE SEEN [facility] Comment on above: Performed By: #### Mavis DONOVAN UMICRO #### [facility] [address] [place] [address] Jerman Sri Bacteria identified Cx Nom (U) CX ALREADY ORDERED Normal [facility] Comment on above: Result Comment: Prev iously reported as: INDICATED On 02/29/2020 20:03 By [email or web address] Performed By: #### Mavis DONOVAN UMICRO #### [facility] [address] [place] [address] Jerman Sri CAST NONE SEEN Normal NONE SEEN [facility] Comment on above: Performed By: #### Mavis DONOVAN UMICRO #### [facility] [address] [place] [address] Jerman Sri Crystals LM Nom (Urine sed) NONE SEEN Normal NONE SEEN [facility] Comment on above: Performed By: #### Mavis DONOVAN UMICRO #### [facility] [address] [place] [address] Jerman Sri Epithelial cells LM Ql (Urine sed) NONE SEEN Normal [facility] Comment on above: Performed By: #### Mavis DONOVAN UMICRO #### [facility] [address] [place] [address] Jerman Sri MUCOUS TRACE Normal NONE SEEN [facility] Comment on above: Performed By: #### Mavis DONOVAN UMICRO #### [facility] [address] [place] [address] Jerman Sri RBC (U) [#/Vol] /uL Normal 0-2 [facility] Comment on above: Performed By: #### YENIFER EGAN #### [facility] [address], [place] [address] Jerman Fierro WBC (U) [#/Vol] /uL Normal NONE SEEN [facility] Comment on above: Performed By: #### YENIFER EGAN #### [facility] [address], [place] [address] Jerman Fierro XR CHEST 1 Von 02-29-2020 XR CHEST 1 V EXAM: XR CHEST 1 V HISTORY: SHORTNESS OF BREATH COMPARISON: Chest x-ray 12/31/2019. TECHNIQUE: Single AP portable upright view of the chest is submitted for review. FINDINGS: Stable mild enlarged cardiac silhouette is seen. The cardiac silhouette is within normal limits. Patient is again noted post median sternotomy. The lungs appear clear. No focal consolidation, pneumothorax or pleural effusion is seen. IMPRESSION: No radiographic evidence for acute cardiopulmonary disease Electronically authenticated by: PELON MARROQUIN Date: 2020-02-29 19:49 Normal [facility] Vital Signs Date Time Vital Sign Value Performing Clinician Facility 01-14-2024 10:59-0400 Body height 180.34 cm DO Booker Petersonley Work Phone: [facility] 01-14-2024 10:59-0400 Body mass index (BMI) [Ratio] 20.7 kg/m2 DO Booker Villeda Work Phone: [facility] 01-14-2024 10:59-0400 Body weight 67.58 kg DO Booker Villeda Work Phone: [facility] 01-14-2024 10:59-0400 Diastolic blood pressure 60 mm[Hg] DO Booker Villeda Work Phone: [facility] 01-14-2024 10:59-0400 Heart rate 72 /min DO Booker Villeda Work Phone: [facility] 01-14-2024 10:59-0400 SaO2% (BldA) [Mass fraction] 97 % DO Booker Villeda Work Phone: [facility] 01-14-2024 10:59-0400 Systolic blood pressure 108 mm[Hg] DO Booker Villeda Work Phone: [facility] 01-09-2024 11:41-0400 Diastolic blood pressure 74 mm[Hg] DO Booker Villeda Work Phone: [facility] 01-09-2024 11:41-0400 Heart rate 80 /min DO Booker Villeda Work Phone: [facility] 01-09-2024 11:41-0400 Respiratory rate 18 /min DO Booker Villeda Work Phone: [facility] 01-09-2024 11:41-0400 SaO2% (BldA) [Mass fraction] 96 % DO Booker Villeda Work Phone: [facility] 01-09-2024 11:41-0400 Systolic blood pressure 115 mm[Hg] DO Booker Villeda Work Phone: [facility] 01-09-2024 08:00-0400 Body temperature 98.6 [degF] DO Booker Villeda Work Phone: [facility] 01-09-2024 05:17-0400 Body weight 68.6 kg DO Booker Villeda Work Phone: [facility] 01-06-2024 16:31-0400 Body height 180.34 cm DO Booker Villeda Work Phone: [facility] 01-05-2024 20:02-0400 Diastolic blood pressure 79 mm[Hg] DO Booker Villeda Work Phone: [facility] 01-05-2024 20:02-0400 Heart rate 110 /min DO Booker Villeda Work Phone: [facility] 01-05-2024 20:02-0400 Respiratory rate 19 /min DO Booker Villeda Work Phone: [facility] 01-05-2024 20:02-0400 SaO2% (BldA) [Mass fraction] 94 % DO Booker Villeda Work Phone: [facility] 01-05-2024 20:02-0400 Systolic blood pressure 154 mm[Hg] DO Booker Villeda Work Phone: [facility] 01-05-2024 17:17-0400 Body temperature 98.7 [degF] DO Booker Villeda Work Phone: [facility] 01-05-2024 14:44-0400 Body height 180.34 cm DO Booker Villeda Work Phone: [facility] 01-05-2024 14:44-0400 Body weight 68.03 kg DO Booker Villeda Work Phone: [facility] 11-30-2023 10:16-0400 Blood Pressure Location Zeferino CHARLES [facility] 11-30-2023 10:16-0400 Body temperature 98.6 [degF] Zeferinosneha CHARLES [facility] 11-30-2023 10:16-0400 Diastolic blood pressure 84 mm[Hg] Zeferino CHARLES [facility] 11-30-2023 10:16-0400 Heart rate 62 /min Zeferino CHARLES [facility] 11-30-2023 10:16-0400 Respiratory rate 16 /min Zeferino CHARLES [facility] 11-30-2023 10:16-0400 Systolic blood pressure 135 mm[Hg] Zeferino CHARLES [facility] 11-13-2023 10:35-0500 Body height 174.63 cm DO Booker Villeda Work Phone: [facility] 11-13-2023 10:35-0500 Body mass index (BMI) [Ratio] 23.8 kg/m2 DO Booker Villeda Work Phone: [facility] 11-13-2023 10:35-0500 Body weight 72.57 kg DO Booker Villeda Work Phone: [facility] 11-13-2023 10:35-0500 Diastolic blood pressure 64 mm[Hg] DO Booker Villeda Work Phone: [facility] 11-13-2023 10:35-0500 Heart rate 74 /min DO Booker Villeda Work Phone: [facility] 11-13-2023 10:35-0500 Respiratory rate 18 /min DO Booker Villeda Work Phone: [facility] 11-13-2023 10:35-0500 SaO2% (BldA) [Mass fraction] 95 % DO Booker Villeda Work Phone: [facility] 11-13-2023 10:35-0500 Systolic blood pressure 110 mm[Hg] DO Booker Villeda Work Phone: [facility] 11-05-2023 10:47-0500 Body temperature 96.69 [degF] RENUKA Catalan MD Work Phone: [facility] 11-05-2023 10:47-0500 Body weight 73.3 kg RENUKA Catalan MD Work Phone: [facility] 11-05-2023 10:47-0500 Diastolic blood pressure 91 mm[Hg] RENUKA Catalan MD Work Phone: [facility] 11-05-2023 10:47-0500 Heart rate 98 /min RENUKA Catalan MD Work Phone: [facility] 11-05-2023 10:47-0500 Respiratory rate 18 /min RENUKA Catalan MD Work Phone: [facility] 11-05-2023 10:47-0500 SaO2% (BldA) [Mass fraction] 93 % RENUKA Catalan MD Work Phone: [facility] 11-05-2023 10:47-0500 Systolic blood pressure 148 mm[Hg] RENUKA Catalan MD Work Phone: [facility] 05-14-2023 10:30-0400 Body height 174.63 cm Booker Villeda Other [facility] Other 05-14-2023 10:30-0400 Body mass index (BMI) [Ratio] 23.93 kg/m2 Booker Villeda Other [facility] Other 05-14-2023 10:30-0400 Body weight 72.98 kg Booker Villeda Other [facility] Other 05-14-2023 10:30-0400 Diastolic blood pressure 82 mm[Hg] Booker Villeda Other [facility] Other 05-14-2023 10:30-0400 Respiratory rate 18 /min Booker Villeda Other [facility] Other 05-14-2023 10:30-0400 SaO2% (BldA) [Mass fraction] 94 % Booker Villeda Other [facility] Other 05-14-2023 10:30-0400 Systolic blood pressure 130 mm[Hg] Booker Villeda Other [facility] Other 11-11-2022 10:30-0500 Body height 174.63 cm Booker Villeda Other [facility] Other 11-11-2022 10:30-0500 Body mass index (BMI) [Ratio] 23.35 kg/m2 Booker Villeda Other [facility] Other 11-11-2022 10:30-0500 Body weight 71.22 kg Booker Villeda Other [facility] Other 11-11-2022 10:30-0500 Diastolic blood pressure 80 mm[Hg] Booker Villeda Other [facility] Other 11-11-2022 10:30-0500 Respiratory rate 18 /min Booker Villeda Other [facility] Other 11-11-2022 10:30-0500 SaO2% (BldA) [Mass fraction] 95 % Booker Villeda Other [facility] Other 11-11-2022 10:30-0500 Systolic blood pressure 132 mm[Hg] Booker Villeda Other [facility] Other 11-06-2022 09:48-0500 Body temperature 97.7 [degF] RENUKA Catalan MD Work Phone: [facility] 11-06-2022 09:48-0500 Body weight 72.58 kg RENUKA Catalan MD Work Phone: [facility] 11-06-2022 09:48-0500 Diastolic blood pressure 87 mm[Hg] RENUKA Catalan MD Work Phone: [facility] 11-06-2022 09:48-0500 Heart rate 88 /min RENUKA Catalan MD Work Phone: [facility] 11-06-2022 09:48-0500 Respiratory rate 18 /min RENUKA Catalan MD Work Phone: [facility] 11-06-2022 09:48-0500 SaO2% (BldA) [Mass fraction] 95 % NA Alli BRAMBILA Work Phone: [facility] 11-06-2022 09:48-0500 Systolic blood pressure 145 mm[Hg] NA Alli BRAMBILA Work Phone: [facility] 07-14-2022 09:40-0500 Blood Pressure Location Phuc RICE [facility] 07-14-2022 09:40-0500 Diastolic blood pressure 88 mm[Hg] Phuc RICE [facility] 07-14-2022 09:40-0500 Heart rate 82 /min Phuc RICE [facility] 07-14-2022 09:40-0500 Systolic blood pressure 132 mm[Hg] Phuc RICE [facility] 04-07-2022 13:13-0400 Blood Pressure Location Phuc RICE [facility] 04-07-2022 13:13-0400 Diastolic blood pressure 83 mm[Hg] Phuc RICE [facility] 04-07-2022 13:13-0400 Heart rate 86 /min Phuc RICE [facility] 04-07-2022 13:13-0400 Systolic blood pressure 117 mm[Hg] Phuc RICE [facility] 11-06-2021 11:30-0500 Body height 174.63 cm Booker Villeda Other [facility] Other 11-06-2021 11:30-0500 Body mass index (BMI) [Ratio] 23.95 kg/m2 Booker Villeda Other [facility] Other 11-06-2021 11:30-0500 Body weight 73.03 kg Booker Villeda Other [facility] Other 11-06-2021 11:30-0500 Diastolic blood pressure 89 mm[Hg] Booker Villeda Other [facility] Other 11-06-2021 11:30-0500 Respiratory rate 18 /min Booker Villeda Other [facility] Other 11-06-2021 11:30-0500 SaO2% (BldA) [Mass fraction] 97 % Booker Villeda Other [facility] Other 11-06-2021 11:30-0500 Systolic blood pressure 139 mm[Hg] Booker Villeda Other [facility] Other 06-21-2021 10:00-0400 Body height 174.63 cm Booker Villeda Other [facility] Other 06-21-2021 10:00-0400 Body mass index (BMI) [Ratio] 21.57 kg/m2 Booker Villeda Other [facility] Other 06-21-2021 10:00-0400 Body temperature 98.5 [degF] Booker Villeda Other [facility] Other 06-21-2021 10:00-0400 Body weight 65.77 kg Booker Villeda Other [facility] Other 06-21-2021 10:00-0400 Diastolic blood pressure 80 mm[Hg] Booker Petersonley Other [facility] Other 06-21-2021 10:00-0400 Respiratory rate 16 /min Booker Villeda Other [facility] Other 06-21-2021 10:00-0400 SaO2% (BldA) [Mass fraction] 96 % Booker Villeda Other [facility] Other 06-21-2021 10:00-0400 Systolic blood pressure 126 mm[Hg] Booker Petersonley Other [employer] Other Encounters Encounter Date Encounter Type Care Provider Facility Start: 12-05-2024 ambulatory Zeferino Collinsi ty:[facility] Start: 01-14-2024 End: 01-14-2024 ambulatory DO Booker Petersonley Work Phone: [facility] Work Phone: Start: 01-14-2024 End: 01-14-2024 Patient encounter procedure DO Booker Villeda Work Phone: [facility] Work Phone: Start: 01-11-2024 Non-patient / Non-visit DO Kj Villeda Work Phone: [facility] [place] Work Phone: Start: 01-07-2024 End: 01-09-2024 Evaluation and management of inpatient Nara Mischler Facility:[facility] Start: 01-07-2024 End: 01-09-2024 Evaluation and management of inpatient DO Booker Petersonley Work Phone: [facility] Work Phone: Start: 01-06-2024 Non-patient / Non-visit DO Kj Villeda Work Phone: [facility] Work Phone: Start: 01-05-2024 Non-patient / Non-visit DO Kj Villeda Work Phone: [facility] Work Phone: Start: 01-05-2024 Evaluation and manag ement of inpatient DO Booker Villeda Work Phone: [facility] [place] [facility] Work Phone: Start: 01-05-2024 observation encounter DO Lori Villeda Work Phone: [facility] Work Phone: Start: 11-30-2023 End: 12-01-2023 ambulatory Zeferino CHARLES Facility: [facility] Start: 11-30-2023 End: 11-30-2023 Patient encounter procedure Zeferino CHARLES [facility] Start: 11-26-2023 End: 11-26-[address] [facility] Start: 11-26-2023 End: 11-26-2023 Follow-up encounter Christopher Sherman MD Work Phone: [facility] Medication Therapy Management Comment on above: assisted (current) use of anticoagulants [Z79.01] (Primary Dx); H/O mechanical aortic valve replacement Start: 11-23-2023 ambulatory Phuc FORBES Facility: [facility] Start: 11-13-2023 End: 11-13-2023 Patient encounter procedure DO Booker Petersonley Work Phone: [facility] [place] Work Phone: Start: 11-05-2023 End: 11-05-2023 damaris CATALAN Facility:[facility] Start: 11-05-2023 End: 11-05-2023 Patient encounter procedure Cande Catalan MD Work Phone: [facility]cology Comment on above: Prostate cancer (HCC ) (Primary Dx) Start: 10-22-2023 End: 10-22-2023 ambulatory BOOKER VILLEDA Facility:[facility] Start: 10-22-2023 Non-patient / Non-visit DO Kj Villeda Work Phone: [facility] Work Phone: Start: 10-15-2023 End: 10-15-2023 [facility] Start: 10-15-2023 End: 10-15-2023 Follow-up encounter Christopher Sherman MD Work Phone: [facility] Medication Therapy Management Comment on above: assisted (current) use of anticoagulants [Z79.01] (Primary Dx); H/O mechanical aortic valve replacement Start: 09-03-2023 End: 09-03-2023 [facility] Start: 09-03-2023 End: 09-03-2023 Follow-up encounter Christopher Sherman MD Work Phone: [facility] Medication Therapy Management Comment on above: assisted (current) use of anticoagulants [Z79.01] (Primary Dx); H/O mechanical aortic valve replacement Start: 06-29-2023 End: 06-29-2023 ambulatory Booker Villeda Other [email or web address] [facility] [employer] Other Start: 06-29-2023 Telephone encounter Booker Castellon [facility] David Noriega Start: 06-10-2023 End: 06-10-2023 ambulatory Booker Villeda Other [employer] Other Start: 06-10-2023 Telephone encounter Booker Noriega Start: 05-14-2023 End: 05-14-2023 ambulatory Booker Villeda Other [employer] Other Start: 05-14-2023 Office outpatient vi sit 15 minutes Booker MONTA[facility] Start: 05-01-2023 End: 05-01-2023 ambulatory Booker Villeda Other [employer] Other Start: 05-01-2023 Telephone encounter Booker NEWTON [facility] Start: 03-02-2023 End: 03-02-2023 ambulatory Booker Villeda Other [employer] Other Start: 03-02-2023 Telephone encounter Booker NEWTON [facility] Start: 01-30-2023 End: 01-30-2023 ambulatory Booker Villeda Other [employer] Other Start: 01-30-2023 Telephone encounter Booker NEWTON [facility] Start: 12-31-2022 End: 12-31-2022 ambulatory Booker Villeda Other [employer] Other Start: 12-31-2022 Telephone encounter Booker NEWTON [facility] Start: 11-17-2022 End: 11-17-2022 Patient encounter procedure Phuc FORBES [facility] Start: 11-11-2022 End: 11-11-2022 ambulatory Booker Villeda Other [employer] Other Start: 11-11-2022 Office outpatient vi sit 15 minutes Booker Villeda [facility] Start: 11-06-2022 End: 11-06-2022 Patient encounter procedure Cande Catalan MD Work Phone: Radiation Oncology Comment on above: Prostate cancer (HCC ) (Primary Dx) Start: 10-27-2022 End: 10-27-2022 ambulatory Booker Villeda Other [employer] Other Start: 10-27-2022 Telephone encounter Booker NEWTON [facility] Start: 09-23-2022 End: 09-23-2022 ambulatory Booker Villeda Other [employer] Other Start: 09-23-2022 Telephone encounter Booker NEWTON [facility] Start: 07-14-2022 End: 07-14-2022 Patient encounter procedure Phuc FORBES [facility] Start: 04-07-2022 End: 04-07-2022 Patient encounter procedure Puhc FORBES [facility] Start: 03-25-2022 End: 03-25-2022 ambulatory Booker Villeda Other [employer] Other Start: 03-25-2022 Telephone encounter Booker NEWTON [facility] Start: 01-23-2022 End: 01-23-2022 ambulatory Booker Villeda Other [employer] Other Start: 01-23-2022 Telephone encounter Booker Castellon [facility] Start: 11-06-2021 End: 11-06-2021 ambulatory Booker Villeda Other [employer] Other Start: 11-06-2021 Office outpatient vi sit 15 minutes Booker MONTAÑ[facility] Start: 09-26-2021 End: 09-26-2021 ambulatory Booker Villeda Other [employer] Other Start: 09-26-2021 Telephone encounter Booker NEWTON [facility] Start: 07-29-2021 End: 07-29-2021 ambulatory Booker Villeda Other [employer] Other Start: 07-29-2021 Telephone encounter Booker Deng AMAN [facility] Start: 07-16-2021 End: 07-16-2021 ambulatory Booker Villeda Other [employer] Other Start: 07-16-2021 Nursing evaluation o f patient and report Booker Villeda [facility] Start: 07-01-2021 Telephone encounter Booker NEWTON [facility] Start: 06-25-2021 Telephone encounter Booker Villeda AM[facility] Start: 06-21-2021 Office outpatient vi sit 15 minutes Booker Villeda [facility] Start: 01-29-2021 End: 01-30-[address] DOCTOR FRANCOIS Facility:[facility] Start: 01-07-2021 End: 01-07-2021 ambulatory IMER FRIED Facility:[facility] Start: 11-27-2020 End: 11-28-[address] FORD LISTED REQUEST Facility:[facility] Start: 11-05-2020 End: 11-06-[address] DOCTOR FRANCOIS Facility:[facility] Start: 05-04-2020 End: 05-04-[address] DOCTOR FRANCOIS Facility:[facility] Start: 02-29-2020 End: 03-01-[address] DOCTOR FRANCOIS Facility: Procedures Date Procedure Procedure Detail Performing Clinician Start: 01-08-2024 CL Coronary Angio DO Ignacio Villeda Work Phone: Start: 01-07-2024 Radionuclide myocard ial perfusion stress study DO Booker Villeda Work Phone: Start: 01-05-2024 Plain chest X-ray DO Ignacio Villeda Work Phone: Start: 11-26-2023 [employer] Work Phone: Start: 10-15-2023 [employer] Work Phone: Start: 09-03-2023 [employer] Work Phone: Start: 02-29-2020 Transurethral insert ion of prostatic urethral lift implant Phuc FORBES Start: 02-08-2020 Cystoscopy Phuc Gamble Start: 01-25-2020 Circumcision Phuc Gamble Start: 08-05-2018 Intracavitary brachytherapy Phuc FORBES Start: 05-27-2018 Transrectal biopsy o f prostate using ultrasound guidance Phuc FORBES Hemorrhoidectomy Phuc FORBES Open repair of ingui nal hernia Phuc FORBES Comment on above: with mesh, right Replacement of aortic valve Phuc FORBES Plan of Treatment Date Care Activity Detail Author Start: 02-20-2026 Diabetes Screening Diabetes Screenin g [facility] Start: 11-04-2024 End: 02-03-2025 Prostate specific Ag [Mass/volume] in Serum or Plasma PSA/PROSTSPECAG DIAG Lab Routine Prostate cancer (HCC) Expected: 11/04/2024 (Approximate), Expires: 02/03/2025 [facility] Work Phone: Comment on above: Expected: 11/04/2024 (Approximate), Expires: 02/03/2025 Start: 03-27-2024 [facility] Start: 03-27-2024 Tobacco Screening [facility] Start: 03-21-2024 End: 03-21-2024 Patient encounter procedure 03/21/2024 11:00 AM EDT Office Visit [facility] [address] [place] [address] Martha Taylor MD [address] [place] [address] [facility] Start: 01-09-2024 [facility] Start: 01-07-2024 Radionuclide myocard ial perfusion stress study NM keshia perf SPECT rest & str [facility] Start: 01-07-2024 End: 01-07-2024 Follow-up encounter 01/07/2024 11:30 AM EDT Follow Up Anticoagulation [facility] Medication Therapy Management [address] [place] [address] Christopher Sherman MD [id number] [place] [address] [facility] Start: 01-05-2024 [facility] Start: 01-05-2024 Hospital admission [facility] Start: 01-05-2024 Referral to equine breeder [facility] Start: 01-05-2024 [facility] Start: 11-26-2023 End: 11-26-2023 Follow-up encounter 11/26/2023 11:30 AM EDT Follow Up Anticoagulation [facility] Medication Therapy Management [address] [place] [address] Christopher Sherman MD [id number] [place] [address] [facility] Start: 11-07-2023 End: 01-07-2024 Prostate specific Ag [Mass/volume] in Serum or Plasma PSA/PROSTSPECAG DIAG Lab Routine Prostate cancer (HCC) Expected: 11/07/2023 (Approximate), Expires: 01/07/2024 [facility] Work Phone: Comment on above: Expected: 11/07/2023 (Approximate), Expires: 01/07/2024 Start: 09-07-2023 Advance Directive Discussion Advance Directive Discussion [facility] Start: 09-07-2023 Depression Assessment Depression Ass essment [facility] Start: 08-26-2023 COVID-19 Vaccine (7 - 2023-24 season) COVID-19 Vaccine (2022-24 season) [facility] Start: 09-07-2022 ADVANCE DIRECTIVE DISCUSSION ADVANCE DIRECTIVE DISCUSSION [facility] Start: 09-07-2022 DEPRESSION ASSESSMENT DEPRESSION ASS ESSMENT [facility] Start: 2010 Fall Risk Screening Fall Risk Screen ing [facility] Start: 2010 PNEUMOCOCCAL: 65+ (1 - PCV) PNEUMOCOCCAL: 65+ (1 - PCV) [facility] Start: 2005 RSV Vaccine (1 - 1-d ose 60+ series) RSV Vaccine (1 - 1-dose 60+ series) [facility] Start: 12-23-1995 SHINGRIX VACCINE (1 of 2) SHINGRIX VACCINE (1 of 2) [facility] Start: 1990 DIABETES SCREEN DIABETES SCREEN [facility] Start: 1964 Administration of varicella zoster vaccine Zoster (Shingles) Vaccine (1 of 2) [facility] Start: 1964 DTaP,Tdap and Td Vaccines (1 - Tdap) DTaP,Tdap and Td Vaccines (1 - Tdap) [facility] Start: 1964 Urine microalbumin profile [facility] Start: 12-23-1963 HEPATITIS C SCREENING HEPATITIS C [facility] Start: 12-23-1963 Hepatitis C screening Hepatitis C [facility] Start: 1957 Depression Screening Depression Scre ening [facility] Start: 1945 Medicare Annual Well ness Visit Medicare Annual Wellness Visit [facility] Comprehensive metabo lic 2000 panel - Serum or Plasma [facility] Patient Education Heart Failure, Adult (D C) [facility] Work Phone: Patient referral [facility] Work Phone: [facility] Immunizations Immunization Date Immunization Notes Care Provider Nathalie belle 06-19-2022 influenza virus vaccine, unspecified formulation Phuc FORBES [facility] 04-25-2022 SARS-CoV-2 mRNA (bzukpwdrgew-hogc-fwhsq se) vaccine Phuc FORBES [facility] 12-05-2021 SARS-CoV-2 mRNA (edsqcpsfuvz-wywc-cjhfe se) vaccine Phuc [employer] [facility] 07-16-2021 influenza virus vaccine, unspecified formulation [employer] [facility] 07-16-2021 influenza, high dose seasonal, preservative-free Booker Villeda Other [employer] Other 06-08-2021 COVID-19 Vaccine Pfi zer - Documentation Purposes Only Booker Villeda Other [facility] 11-27-2020 COVID-19 Vaccine Pfi zer - Documentation Purposes Only Booker Villeda Other [facility] 11-27-2020 SARS-CoV-2 (COVID-19 ) mRNA-1273 vaccine [facility] 11-05-2020 COVID-19 Vaccine Pfi zer - Documentation Purposes Only Booker Villeda Other [facility] 11-05-2020 SARS-CoV-2 (COVID-19 ) mRNA-1273 vaccine Simpson [employer] [facility] 07-08-2020 influenza virus vaccine, unspecified formulation [employer] [facility] 05-18-2020 influenza virus vaccine, unspecified formulation [employer] [facility] 05-18-2020 influenza, injectabl e, quadrivalent, preservative free Booker Villeda Other [facility] 08-15-2019 pneumococcal polysaccharide vaccine, 23 valent Booker Villeda Other [facility] 06-02-2019 influenza, seasonal, injectable Booker Villeda Other [facility] 06-02-2019 influenza virus vaccine, unspecified formulation Phuc RICE [facility] 06-02-2019 Seasonal trivalent influenza vaccine, adjuvanted, preservative free [facility] 06-09-2018 influenza virus vaccine, unspecified formulation Phuc RICE [facility] 06-09-2018 Seasonal trivalent influenza vaccine, adjuvanted, preservative free [facility] 06-09-2018 pneumococcal conjuga te vaccine, 13 valent Booker Villeda Other [facility] 06-09-2018 influenza, seasonal, injectable Booker Villeda Other [facility] 10-23-2017 pneumococcal conjuga te vaccine, 13 valent Booker Villeda Other [facility] 06-11-2017 influenza, high dose seasonal, preservative-free Booker Villeda Other [employer] Other 06-11-2017 influenza virus vaccine, unspecified formulation Phuc R[employer] [facility] 06-13-2016 influenza virus vaccine, unspecified formulation Phuc R[employer] [facility] 06-13-2016 influenza, high dose seasonal, preservative-free Booker Villeda Other [facility] Other 06-15-2015 influenza virus vaccine, unspecified formulation Phuc [employer] [facility] 04-18-2015 KENALOG - 10 mg Booker levin Other [facility] Other 06-14-2013 pneumococcal polysaccharide vaccine, 23 valent Booker Villeda Other [facility] 04-13-2013 influenza, high dose seasonal, preservative-free Booker Villeda Other [facility] Other 04-12-2013 influenza virus vaccine, unspecified formulation DO Booker Villeda Work Phone: [facility] 06-24-2012 influenza, injectabl e, quadrivalent, contains preservative Booker Villeda Other [facility] Payers Date Payer Category Payer Medicare [id number] 2022 Medicare [id number]. [id number] 2021 Medicare [id number] 1959 Medicare [id number] 1959 Self-pay 1959 Unknown [id number] 1945 Unknown [id number] 2.16.84 [id number] 1945 Unknown [id number] 2.16.84 [id number] 1945 Unknown [id number] 2.16.84 [id number] 1945 Unknown [id number] 2.16.84 [id number] 1945 Unknown [id number] 2.16.8 [id number] 1945 Unknown [id number] 2.16.8 [id number] 1945 Unknown [id number] 2.16.84 [id number] 1945 Unknown [id number] 2.16.8 [id number] 1945 Unknown [id number] 2.16.8 [id number] 1945 Unknown [id number] 2.16.8 [id number] Unknown [id number] 2.16.84 [id number] Unknown [id number] 2.16.84 [id number] Unknown HCAP/HFA/FAP Active [id number] Unknown [id number] 2.16.8 [id number] Social History Date Type Detail Facility Unknown if ever smoked [facility] Other Start: 12-08-2019 End: 10-15-2020 Sex Assigned At [facility] Other Start: 04-07-2022 End: 01-06-2024 Tobacco smoking status Ex-smoker (finding) [facility] Tobacco smoking status Never [facility] [place] End: 06-30-1983 History of tobacco use Current smoker [facility] End: 06-30-1983 History of tobacco use Cigarette Smoker [facility] Start: 06-30-2018 End: 10-15-2020 Cigarettes smoked current (pack per day) - Reported 1 [facility] Start: 06-30-2018 End: 03-27-2023 Tobacco use and exposure Smokeless tobacco non-user [facility] Start: 11-07-2021 Alcohol intake Current drinke r of alcohol (finding) [facility] Start: 06-30-2018 Alcohol Comment occ [facility] Start: 1945 Sex Assigned At Not on file C [facility] Start: 03-27-2023 [facility] intake [facility] Start: 01-05-[facility]24 [facility] Start: 1945 Sex Assigned At Male F [facility] Medical Equipment Procedure Code Equipment Code Equipment Origin al Text Equipment Identifier Dates Insertion, radioactive seed, iodine-125, prostate SEED BRACHYTX PD-103 NONSTRAND FDA Start: 08-05-2018 Insertion, radioactive seed, iodine-125, prostate SEED BRACHYTX PD-103 NONSTRAND FDA Start: 08-05-2018 Insertion, radioactive seed, iodine-125, prostate SEED BRACHYTX PD-103 NONSTRAND FDA Start: 08-05-2018 Insertion, radioactive seed, iodine-125, prostate SEED BRACH[employer]TX PD-103 NONSTRAND FDA Start: 08-05-2018 Insertion, radioactive seed, iodine-125, prostate SEED BRACH[employer] PD-103 NONSTRAND FDA Start: 08-05-2018 Insertion, radioactive seed, iodine-125, prostate SEED BRACH[employer]TX PD-103 NONSTRAND FDA Start: 08-05-2018 Insertion, radioactive seed, iodine-125, prostate SEED BRACHYTX PD-103 NONSTRAND FDA Start: 08-05-2018 Insertion, radioactive seed, iodine-125, prostate SEED BRACH[employer]TX PD-103 NONSTRAND FDA Start: 08-05-2018 Insertion, radioactive seed, iodine-125, prostate SEED BRACHYTX PD-103 NONSTRAND FDA Start: 08-05-2018 Insertion, radioactive seed, iodine-125, prostate SEED BRACH[employer] PD-103 NONSTRAND FDA Start: 08-05-2018 Insertion, radioactive seed, iodine-125, prostate SEED BRACH[employer] PD-103 NONSTRAND FDA Start: 08-05-2018 Insertion, radioactive seed, iodine-125, prostate SEED BRACH[employer] PD-103 NONSTRAND FDA Start: 08-05-2018 Insertion, radioactive seed, iodine-125, prostate SEED BRACH[employer] PD-103 NONSTRAND FDA Start: 08-05-2018 Insertion, radioactive seed, iodine-125, prostate SEED BRACH[employer] PD-103 NONSTRAND FDA Start: 08-05-2018 Insertion, radioactive seed, iodine-125, prostate SEED BRACH[employer]TX PD-103 NONSTRAND FDA Start: 08-05-2018 Insertion, radioactive seed, iodine-125, prostate SEED BRACH[employer] PD-103 NONSTRAND FDA Start: 08-05-2018 Insertion, radioactive seed, iodine-125, prostate SEED BRACH[employer]TX PD-103 NONSTRAND FDA Start: 08-05-2018 Insertion, radioactive seed, iodine-125, prostate SEED BRACHYTX PD-103 NONSTRAND FDA Start: 08-05-2018 Insertion, radioactive seed, iodine-125, prostate SEED BRACHYTX PD-103 NONSTRAND FDA Start: 08-05-2018 Insertion, radioactive seed, iodine-125, prostate SEED BRACHYTX PD-103 NONSTRAND FDA Start: 08-05-2018 Insertion, radioactive seed, iodine-125, prostate SEED BRACHYTX PD-103 NONSTRAND FDA Start: 08-05-2018 Insertion, radioactive seed, iodine-125, prostate SEED BRACHYTX PD-103 STRANDED FDA Start: 08-05-2018 Insertion, radioactive seed, iodine-125, prostate SEED BRACHYTX PD-103 NONSTRAND FDA Start: 08-05-2018 Insertion, radioactive seed, iodine-125, prostate SEED BRACHYTX PD-103 STRANDED FDA Start: 08-05-2018 Insertion, radioactive seed, iodine-125, prostate SEED BRACHYTX PD-103 STRANDED FDA Start: 08-05-2018 Insertion, radioactive seed, iodine-125, prostate SEED BRACHYTX PD-103 STRANDED FDA Start: 08-05-2018 Insertion, radioactive seed, iodine-125, prostate SEED BRACHYTX PD-103 STRANDED FDA Start: 08-05-2018 Insertion, radioactive seed, iodine-125, prostate SEED BRACHYTX PD-103 STRANDED FDA Start: 08-05-2018 Insertion, radioactive seed, iodine-125, prostate SEED BRACHYTX PD-103 STRANDED FDA Start: 08-05-2018 Insertion, radioactive seed, iodine-125, prostate SEED BRACHYTX PD-103 STRANDED FDA Start: 08-05-2018 Insertion, radioactive seed, iodine-125, prostate SEED BRACHYTX PD-103 STRANDED FDA Start: 08-05-2018 Insertion, radioactive seed, iodine-125, prostate SEED BRACHYTX PD-103 STRANDED FDA Start: 08-05-2018 Insertion, radioactive seed, iodine-125, prostate SEED [employer]ACH[employer] PD-103 STRANDED FDA Start: 08-05-2018 Insertion, radioactive seed, iodine-125, prostate SEED BRACHYTX PD-103 NONSTRAND FDA Start: 08-05-2018 Insertion, radioactive seed, iodine-125, prostate SEED BRACH[employer]TX PD-103 STRANDED FDA Start: 08-05-2018 Insertion, radioactive seed, iodine-125, prostate SEED BRACHYTX PD-103 STRANDED FDA Start: 08-05-2018 Insertion, radioactive seed, iodine-125, prostate SEED BRACHYTX PD-103 STRANDED FDA Start: 08-05-2018 Insertion, radioactive seed, iodine-125, prostate SEED BRACHYTX PD-103 STRANDED FDA Start: 08-05-2018 Insertion, radioactive seed, iodine-125, prostate SEED [employer]ACH[employer] PD-103 STRANDED FDA Start: 08-05-2018 Insertion, radioactive seed, iodine-125, prostate SEED BRACH[employer]TX PD-103 STRANDED FDA Start: 08-05-2018 Insertion, radioactive seed, iodine-125, prostate SEED [employer] PD-103 STRANDED FDA Start: 08-05-2018 Insertion, radioactive seed, iodine-125, prostate SEED [employer]ACH[employer] PD-103 STRANDED FDA Start: 08-05-2018 Insertion, radioactive seed, iodine-125, prostate SEED BRACH[employer]TX PD-103 STRANDED FDA Start: 08-05-2018 Insertion, radioactive seed, iodine-125, prostate SEED BRACH[employer]TX PD-103 STRANDED FDA Start: 08-05-2018 Insertion, radioactive seed, iodine-125, prostate SEED BRACHYTX PD-103 NONSTRAND FDA Start: 08-05-2018 Insertion, radioactive seed, iodine-125, prostate SEED BRACHYTX PD-103 STRANDED FDA Start: 08-05-2018 Insertion, radioactive seed, iodine-125, prostate SEED BRACH[employer]TX PD-103 STRANDED FDA Start: 08-05-2018 Insertion, radioactive seed, iodine-125, prostate SEED BRACHYTX PD-103 STRANDED FDA Start: 08-05-2018 Insertion, radioactive seed, iodine-125, prostate SEED BRACHYTX PD-103 STRANDED FDA Start: 08-05-2018 Insertion, radioactive seed, iodine-125, prostate SEED BRACHYTX PD-103 STRANDED FDA Start: 08-05-2018 Insertion, radioactive seed, iodine-125, prostate SEED BRACHYTX PD-103 STRANDED FDA Start: 08-05-2018 Insertion, radioactive seed, iodine-125, prostate SEED BRACHYTX PD-103 STRANDED FDA Start: 08-05-2018 Insertion, radioactive seed, iodine-125, prostate SEED BRACHYTX PD-103 STRANDED FDA Start: 08-05-2018 Insertion, radioactive seed, iodine-125, prostate SEED BRACHYTX PD-103 STRANDED FDA Start: 08-05-2018 Insertion, radioactive seed, iodine-125, prostate SEED BRACHYTX PD-103 STRANDED FDA Start: 08-05-2018 Insertion, radioactive seed, iodine-125, prostate SEED BRACHYTX PD-103 NONSTRAND FDA Start: 08-05-2018 Insertion, radioactive seed, iodine-125, prostate SEED BRACHYTX PD-103 STRANDED FDA Start: 08-05-2018 Insertion, radioactive seed, iodine-125, prostate SEED BRACH[employer]TX PD-103 STRANDED FDA Start: 08-05-2018 Insertion, radioactive seed, iodine-125, prostate SEED BRACHYTX PD-103 STRANDED FDA Start: 08-05-2018 Insertion, radioactive seed, iodine-125, prostate SEED BRACHYTX PD-103 STRANDED FDA Start: 08-05-2018 Insertion, radioactive seed, iodine-125, prostate SEED BRACH[employer]TX PD-103 STRANDED FDA Start: 08-05-2018 Insertion, radioactive seed, iodine-125, prostate SEED BRACHYTX PD-103 STRANDED FDA Start: 08-05-2018 Insertion, radioactive seed, iodine-125, prostate SEED BRACH[employer]TX PD-103 STRANDED FDA Start: 08-05-2018 Insertion, radioactive seed, iodine-125, prostate SEED [employer] PD-103 STRANDED FDA Start: 08-05-2018 Insertion, radioactive seed, iodine-125, prostate SEED BRACH[employer]TX PD-103 STRANDED FDA Start: 08-05-2018 Insertion, radioactive seed, iodine-125, prostate SEED [employer] PD-103 STRANDED FDA Start: 08-05-2018 Insertion, radioactive seed, iodine-125, prostate SEED BRACH[employer]TX PD-103 NONSTRAND FDA Start: 08-05-2018 Insertion, radioactive seed, iodine-125, prostate SEED [employer]ACH[employer] PD-103 STRANDED FDA Start: 08-05-2018 Insertion, radioactive seed, iodine-125, prostate SEED [employer] PD-103 STRANDED FDA Start: 08-05-2018 Insertion, radioactive seed, iodine-125, prostate SEED [employer]ACH[employer] PD-103 STRANDED FDA Start: 08-05-2018 Insertion, radioactive seed, iodine-125, prostate SEED [employer]ACH[employer] PD-103 STRANDED FDA Start: 08-05-2018 Insertion, radioactive seed, iodine-125, prostate SEED [employer]ACH[employer] PD-103 STRANDED FDA Start: 08-05-2018 Insertion, radioactive seed, iodine-125, prostate SEED [employer] PD-103 STRANDED FDA Start: 08-05-2018 Insertion, radioactive seed, iodine-125, prostate SEED [employer]ACH[employer] PD-103 STRANDED FDA Start: 08-05-2018 Insertion, radioactive seed, iodine-125, prostate SEED [employer] PD-103 STRANDED FDA Start: 08-05-2018 Insertion, radioactive seed, iodine-125, prostate SEED [employer] PD-103 STRANDED FDA Start: 08-05-2018 Insertion, radioactive seed, iodine-125, prostate SEED [employer] PD-103 STRANDED FDA Start: 08-05-2018 Insertion, radioactive seed, iodine-125, prostate SEED [employer] PD-103 NONSTRAND FDA Start: 08-05-2018 Insertion, radioactive seed, iodine-125, prostate SEED [employer] PD-103 STRANDED FDA Start: 08-05-2018 Insertion, radioactive seed, iodine-125, prostate SEED [employer] PD-103 STRANDED FDA Start: 08-05-2018 Insertion, radioactive seed, iodine-125, prostate SEED [employer] PD-103 STRANDED FDA Start: 08-05-2018 Insertion, radioactive seed, iodine-125, prostate SEED [employer] PD-103 STRANDED FDA Start: 08-05-2018 Insertion, radioactive seed, iodine-125, prostate SEED [employer] PD-103 STRANDED FDA Start: 08-05-2018 Insertion, radioactive seed, iodine-125, prostate SEED [employer] PD-103 STRANDED FDA Start: 08-05-2018 Insertion, radioactive seed, iodine-125, prostate SEED [employer] PD-103 STRANDED FDA Start: 08-05-2018 Insertion, radioactive seed, iodine-125, prostate SEED [employer] PD-103 STRANDED FDA Start: 08-05-2018 Insertion, radioactive seed, iodine-125, prostate SEED [employer] PD-103 STRANDED FDA Start: 08-05-2018 Insertion, radioactive seed, iodine-125, prostate SEED [employer] PD-103 STRANDED FDA Start: 08-05-2018 Insertion, radioactive seed, iodine-125, prostate SEED [employer] PD-103 NONSTRAND FDA Start: 08-05-2018 Insertion, radioactive seed, iodine-125, prostate SEED [employer] PD-103 STRANDED FDA Start: 08-05-2018 Insertion, radioactive seed, iodine-125, prostate SEED [employer] PD-103 STRANDED FDA Start: 08-05-2018 Insertion, radioactive seed, iodine-125, prostate SEED [employer] PD-103 STRANDED FDA Start: 08-05-2018 Insertion, radioactive seed, iodine-125, prostate SEED [employer] PD-103 NONSTRAND FDA Start: 08-05-2018 Insertion, radioactive seed, iodine-125, prostate SEED [employer] PD-103 NONSTRAND FDA Start: 08-05-2018 Insertion, radioactive seed, iodine-125, prostate SEED [employer] PD-103 NONSTRAND FDA Start: 08-05-2018 Insertion, radioactive seed, iodine-125, prostate SEED [employer] PD-103 NONSTRAND FDA Start: 08-05-2018 Insertion, radioactive seed, iodine-125, prostate SEED [employer] PD-103 NONSTRAND FDA Start: 08-05-2018 Insertion, radioactive seed, iodine-125, prostate SEED [employer] PD-103 NONSTRAND FDA Start: 08-05-2018 Insertion, radioactive seed, iodine-125, prostate SEED [employer] PD-103 NONSTRAND FDA Start: 08-05-2018 Insertion, radioactive seed, iodine-125, prostate SEED [employer] PD-103 NONSTRAND FDA Start: 08-05-2018 Insertion, radioactive seed, iodine-125, prostate SEED [employer] PD-103 NONSTRAND FDA Start: 08-05-2018 Insertion, radioactive seed, iodine-125, prostate SEED [employer] PD-103 NONSTRAND FDA Start: 08-05-2018 Insertion, radioactive seed, iodine-125, prostate SEED [employer] PD-103 NONSTRAND FDA Start: 08-05-2018 Insertion, radioactive seed, iodine-125, prostate SEED [employer] PD-103 NONSTRAND FDA Start: 08-05-2018 Insertion, radioactive seed, iodine-125, prostate SEED [employer] PD-103 NONSTRAND FDA Start: 08-05-2018 Insertion, radioactive seed, iodine-125, prostate SEED [employer] PD-103 NONSTRAND FDA Start: 08-05-2018 Insertion, radioactive seed, iodine-125, prostate SEED [employer] PD-103 NONSTRAND FDA Start: 08-05-2018 Insertion, radioactive seed, iodine-125, prostate SEED [employer] PD-103 NONSTRAND FDA Start: 08-05-2018 Insertion, radioactive seed, iodine-125, prostate SEED [employer] PD-103 NONSTRAND FDA Start: 08-05-2018 Insertion, radioactive seed, iodine-125, prostate SEED [employer] PD-103 NONSTRAND FDA Start: 08-05-2018 Insertion, radioactive seed, iodine-125, prostate SEED [employer] PD-103 NONSTRAND FDA Start: 08-05-2018 Insertion, radioactive seed, iodine-125, prostate SEED [employer] PD-103 NONSTRAND FDA Start: 08-05-2018 Insertion, radioactive seed, iodine-125, prostate SEED [employer] PD-103 NONSTRAND FDA Start: 08-05-2018 Insertion, radioactive seed, iodine-125, prostate SEED [employer] PD-103 STRANDED FDA Start: 08-05-2018 Insertion, radioactive seed, iodine-125, prostate SEED [employer] PD-103 NONSTRAND FDA Start: 08-05-2018 Insertion, radioactive seed, iodine-125, prostate SEED [employer] PD-103 STRANDED FDA Start: 08-05-2018 Insertion, radioactive seed, iodine-125, prostate SEED [employer] PD-103 STRANDED FDA Start: 08-05-2018 Insertion, radioactive seed, iodine-125, prostate SEED [employer] PD-103 STRANDED FDA Start: 08-05-2018 Insertion, radioactive seed, iodine-125, prostate SEED [employer] PD-103 STRANDED FDA Start: 08-05-2018 Insertion, radioactive seed, iodine-125, prostate SEED [employer] PD-103 STRANDED FDA Start: 08-05-2018 Insertion, radioactive seed, iodine-125, prostate SEED [employer] PD-103 STRANDED FDA Start: 08-05-2018 Insertion, radioactive seed, iodine-125, prostate SEED [employer] PD-103 STRANDED FDA Start: 08-05-2018 Insertion, radioactive seed, iodine-125, prostate SEED [employer] PD-103 STRANDED FDA Start: 08-05-2018 Insertion, radioactive seed, iodine-125, prostate SEED [employer] PD-103 STRANDED FDA Start: 08-05-2018 Insertion, radioactive seed, iodine-125, prostate SEED [employer] PD-103 STRANDED FDA Start: 08-05-2018 Insertion, radioactive seed, iodine-125, prostate SEED [employer] PD-103 NONSTRAND FDA Start: 08-05-2018 Insertion, radioactive seed, iodine-125, prostate SEED [employer] PD-103 STRANDED FDA Start: 08-05-2018 Insertion, radioactive seed, iodine-125, prostate SEED [employer] PD-103 STRANDED FDA Start: 08-05-2018 Insertion, radioactive seed, iodine-125, prostate SEED [employer] PD-103 STRANDED FDA Start: 08-05-2018 Insertion, radioactive seed, iodine-125, prostate SEED [employer] PD-103 STRANDED FDA Start: 08-05-2018 Insertion, radioactive seed, iodine-125, prostate SEED [employer] PD-103 STRANDED FDA Start: 08-05-2018 Insertion, radioactive seed, iodine-125, prostate SEED [employer]ACH[employer]TX PD-103 STRANDED FDA Start: 08-05-2018 Insertion, radioactive seed, iodine-125, prostate SEED [employer] PD-103 STRANDED FDA Start: 08-05-2018 Insertion, radioactive seed, iodine-125, prostate SEED [employer] PD-103 STRANDED FDA Start: 08-05-2018 Insertion, radioactive seed, iodine-125, prostate SEED [employer]ACH[employer] PD-103 STRANDED FDA Start: 08-05-2018 Insertion, radioactive seed, iodine-125, prostate SEED [employer] PD-103 STRANDED FDA Start: 08-05-2018 Insertion, radioactive seed, iodine-125, prostate SEED [employer] PD-103 NONSTRAND FDA Start: 08-05-2018 Insertion, radioactive seed, iodine-125, prostate SEED [employer] PD-103 STRANDED FDA Start: 08-05-2018 Insertion, radioactive seed, iodine-125, prostate SEED [employer] PD-103 STRANDED FDA Start: 08-05-2018 Insertion, radioactive seed, iodine-125, prostate SEED [employer] PD-103 STRANDED FDA Start: 08-05-2018 Insertion, radioactive seed, iodine-125, prostate SEED [employer] PD-103 STRANDED FDA Start: 08-05-2018 Insertion, radioactive seed, iodine-125, prostate SEED [employer] PD-103 STRANDED FDA Start: 08-05-2018 Insertion, radioactive seed, iodine-125, prostate SEED [employer] PD-103 STRANDED FDA Start: 08-05-2018 Insertion, radioactive seed, iodine-125, prostate SEED [employer] PD-103 STRANDED FDA Start: 08-05-2018 Insertion, radioactive seed, iodine-125, prostate SEED [employer] PD-103 STRANDED FDA Start: 08-05-2018 Insertion, radioactive seed, iodine-125, prostate SEED [employer]ACH[employer] PD-103 STRANDED FDA Start: 08-05-2018 Insertion, radioactive seed, iodine-125, prostate SEED [employer]ACH[employer] PD-103 STRANDED FDA Start: 08-05-2018 Insertion, radioactive seed, iodine-125, prostate SEED [employer]ACH[employer] PD-103 NONSTRAND FDA Start: 08-05-2018 Insertion, radioactive seed, iodine-125, prostate SEED [employer]ACH[employer] PD-103 STRANDED FDA Start: 08-05-2018 Insertion, radioactive seed, iodine-125, prostate SEED [employer]ACH[employer] PD-103 STRANDED FDA Start: 08-05-2018 Insertion, radioactive seed, iodine-125, prostate SEED [employer]ACH[employer] PD-103 STRANDED FDA Start: 08-05-2018 Insertion, radioactive seed, iodine-125, prostate SEED [employer]ACH[employer] PD-103 STRANDED FDA Start: 08-05-2018 Insertion, radioactive seed, iodine-125, prostate SEED [employer] PD-103 STRANDED FDA Start: 08-05-2018 Insertion, radioactive seed, iodine-125, prostate SEED [employer] PD-103 STRANDED FDA Start: 08-05-2018 Insertion, radioactive seed, iodine-125, prostate SEED [employer]ACH[employer] PD-103 STRANDED FDA Start: 08-05-2018 Insertion, radioactive seed, iodine-125, prostate SEED [employer]ACH[employer] PD-103 STRANDED FDA Start: 08-05-2018 Insertion, radioactive seed, iodine-125, prostate SEED BRACH[employer]TX PD-103 STRANDED FDA Start: 08-05-2018 Insertion, radioactive seed, iodine-125, prostate SEED [employer]ACH[employer] PD-103 STRANDED FDA Start: 08-05-2018 Insertion, radioactive seed, iodine-125, prostate SEED BRACHYTX PD-103 NONSTRAND FDA Start: 08-05-2018 Insertion, radioactive seed, iodine-125, prostate SEED BRACHYTX PD-103 STRANDED FDA Start: 08-05-2018 Insertion, radioactive seed, iodine-125, prostate SEED BRACHYTX PD-103 STRANDED FDA Start: 08-05-2018 Insertion, radioactive seed, iodine-125, prostate SEED BRACHYTX PD-103 STRANDED FDA Start: 08-05-2018 Insertion, radioactive seed, iodine-125, prostate SEED BRACHYTX PD-103 STRANDED FDA Start: 08-05-2018 Insertion, radioactive seed, iodine-125, prostate SEED BRACHYTX PD-103 STRANDED FDA Start: 08-05-2018 Insertion, radioactive seed, iodine-125, prostate SEED BRACHYTX PD-103 STRANDED FDA Start: 08-05-2018 Insertion, radioactive seed, iodine-125, prostate SEED BRACHYTX PD-103 STRANDED FDA Start: 08-05-2018 Insertion, radioactive seed, iodine-125, prostate SEED BRACHYTX PD-103 STRANDED FDA Start: 08-05-2018 Insertion, radioactive seed, iodine-125, prostate SEED BRACHYTX PD-103 STRANDED FDA Start: 08-05-2018 Insertion, radioactive seed, iodine-125, prostate SEED BRACHYTX PD-103 STRANDED FDA Start: 08-05-2018 Insertion, radioactive seed, iodine-125, prostate SEED BRACHYTX PD-103 NONSTRAND FDA Start: 08-05-2018 Insertion, radioactive seed, iodine-125, prostate SEED BRACHYTX PD-103 STRANDED FDA Start: 08-05-2018 Insertion, radioactive seed, iodine-125, prostate SEED BRACHYTX PD-103 STRANDED FDA Start: 08-05-2018 Insertion, radioactive seed, iodine-125, prostate SEED BRACHYTX PD-103 STRANDED FDA Start: 08-05-2018 Insertion, radioactive seed, iodine-125, prostate SEED BRACHYTX PD-103 STRANDED FDA Start: 08-05-2018 Insertion, radioactive seed, iodine-125, prostate SEED BRACHYTX PD-103 STRANDED FDA Start: 08-05-2018 Insertion, radioactive seed, iodine-125, prostate SEED BRACHYTX PD-103 STRANDED FDA Start: 08-05-2018 Insertion, radioactive seed, iodine-125, prostate SEED BRACHYTX PD-103 STRANDED FDA Start: 08-05-2018 Insertion, radioactive seed, iodine-125, prostate SEED BRACHYTX PD-103 STRANDED FDA Start: 08-05-2018 Insertion, radioactive seed, iodine-125, prostate SEED BRACHYTX PD-103 STRANDED FDA Start: 08-05-2018 Insertion, radioactive seed, iodine-125, prostate SEED BRACHYTX PD-103 STRANDED FDA Start: 08-05-2018 Insertion, radioactive seed, iodine-125, prostate SEED BRACHYTX PD-103 NONSTRAND FDA Start: 08-05-2018 Insertion, radioactive seed, iodine-125, prostate SEED BRACHYTX PD-103 STRANDED FDA Start: 08-05-2018 Insertion, radioactive seed, iodine-125, prostate SEED BRACHYTX PD-103 STRANDED FDA Start: 08-05-2018 Insertion, radioactive seed, iodine-125, prostate SEED BRACHYTX PD-103 STRANDED FDA Start: 08-05-2018 Insertion, radioactive seed, iodine-125, prostate SEED BRACHYTX PD-103 NONSTRAND FDA Start: 08-05-2018 Insertion, radioactive seed, iodine-125, prostate SEED BRACHYTX PD-103 NONSTRAND FDA Start: 08-05-2018 Insertion, radioactive seed, iodine-125, prostate SEED BRACHYTX PD-103 NONSTRAND FDA Start: 08-05-2018 Insertion, radioactive seed, iodine-125, prostate SEED BRACHYTX PD-103 NONSTRAND FDA Start: 08-05-2018 Insertion, radioactive seed, iodine-125, prostate SEED BRACHYTX PD-103 NONSTRAND FDA Start: 08-05-2018 Insertion, radioactive seed, iodine-125, prostate SEED BRACHYTX PD-103 NONSTRAND FDA Start: 08-05-2018 Insertion, radioactive seed, iodine-125, prostate SEED BRACHYTX PD-103 NONSTRAND FDA Start: 08-05-2018 Insertion, radioactive seed, iodine-125, prostate SEED BRACHYTX PD-103 NONSTRAND FDA Start: 08-05-2018 Insertion, radioactive seed, iodine-125, prostate SEED BRACHYTX PD-103 NONSTRAND FDA Start: 08-05-2018 Insertion, radioactive seed, iodine-125, prostate SEED BRACHYTX PD-103 NONSTRAND FDA Start: 08-05-2018 Insertion, radioactive seed, iodine-125, prostate SEED BRACHYTX PD-103 NONSTRAND FDA Start: 08-05-2018 Insertion, radioactive seed, iodine-125, prostate SEED BRACHYTX PD-103 NONSTRAND FDA Start: 08-05-2018 Insertion, radioactive seed, iodine-125, prostate SEED BRACHYTX PD-103 NONSTRAND FDA Start: 08-05-2018 Insertion, radioactive seed, iodine-125, prostate SEED BRACHYTX PD-103 NONSTRAND FDA Start: 08-05-2018 Insertion, radioactive seed, iodine-125, prostate SEED BRACHYTX PD-103 NONSTRAND FDA Start: 08-05-2018 Insertion, radioactive seed, iodine-125, prostate SEED BRACHYTX PD-103 NONSTRAND FDA Start: 08-05-2018 Insertion, radioactive seed, iodine-125, prostate SEED BRACHYTX PD-103 NONSTRAND FDA Start: 08-05-2018 Insertion, radioactive seed, iodine-125, prostate SEED BRACHYTX PD-103 NONSTRAND FDA Start: 08-05-2018 Insertion, radioactive seed, iodine-125, prostate SEED BRACHYTX PD-103 NONSTRAND FDA Start: 08-05-2018 Insertion, radioactive seed, iodine-125, prostate SEED BRACHYTX PD-103 NONSTRAND FDA Start: 08-05-2018 Insertion, radioactive seed, iodine-125, prostate SEED BRACHYTX PD-103 NONSTRAND FDA Start: 08-05-2018 Insertion, radioactive seed, iodine-125, prostate SEED BRACHYTX PD-103 STRANDED FDA Start: 08-05-2018 Insertion, radioactive seed, iodine-125, prostate SEED BRACHYTX PD-103 NONSTRAND FDA Start: 08-05-2018 Insertion, radioactive seed, iodine-125, prostate SEED BRACHYTX PD-103 STRANDED FDA Start: 08-05-2018 Insertion, radioactive seed, iodine-125, prostate SEED BRACHYTX PD-103 STRANDED FDA Start: 08-05-2018 Insertion, radioactive seed, iodine-125, prostate SEED BRACHYTX PD-103 STRANDED FDA Start: 08-05-2018 Insertion, radioactive seed, iodine-125, prostate SEED BRACHYTX PD-103 STRANDED FDA Start: 08-05-2018 Insertion, radioactive seed, iodine-125, prostate SEED BRACHYTX PD-103 STRANDED FDA Start: 08-05-2018 Insertion, radioactive seed, iodine-125, prostate SEED BRACHYTX PD-103 STRANDED FDA Start: 08-05-2018 Insertion, radioactive seed, iodine-125, prostate SEED BRACHYTX PD-103 STRANDED FDA Start: 08-05-2018 Insertion, radioactive seed, iodine-125, prostate SEED BRACHYTX PD-103 STRANDED FDA Start: 08-05-2018 Insertion, radioactive seed, iodine-125, prostate SEED BRACHYTX PD-103 STRANDED FDA Start: 08-05-2018 Insertion, radioactive seed, iodine-125, prostate SEED BRACHYTX PD-103 STRANDED FDA Start: 08-05-2018 Insertion, radioactive seed, iodine-125, prostate SEED BRACHYTX PD-103 NONSTRAND FDA Start: 08-05-2018 Insertion, radioactive seed, iodine-125, prostate SEED BRACHYTX PD-103 STRANDED FDA Start: 08-05-2018 Insertion, radioactive seed, iodine-125, prostate SEED BRACHYTX PD-103 STRANDED FDA Start: 08-05-2018 Insertion, radioactive seed, iodine-125, prostate SEED BRACHYTX PD-103 STRANDED FDA Start: 08-05-2018 Insertion, radioactive seed, iodine-125, prostate SEED BRACHYTX PD-103 STRANDED FDA Start: 08-05-2018 Insertion, radioactive seed, iodine-125, prostate SEED BRACHYTX PD-103 STRANDED FDA Start: 08-05-2018 Insertion, radioactive seed, iodine-125, prostate SEED BRACHYTX PD-103 STRANDED FDA Start: 08-05-2018 Insertion, radioactive seed, iodine-125, prostate SEED BRACHYTX PD-103 STRANDED FDA Start: 08-05-2018 Insertion, radioactive seed, iodine-125, prostate SEED BRACHYTX PD-103 STRANDED FDA Start: 08-05-2018 Insertion, radioactive seed, iodine-125, prostate SEED BRACHYTX PD-103 STRANDED FDA Start: 08-05-2018 Insertion, radioactive seed, iodine-125, prostate SEED BRACHYTX PD-103 STRANDED FDA Start: 08-05-2018 Insertion, radioactive seed, iodine-125, prostate SEED BRACHYTX PD-103 NONSTRAND FDA Start: 08-05-2018 Insertion, radioactive seed, iodine-125, prostate SEED BRACHYTX PD-103 STRANDED FDA Start: 08-05-2018 Insertion, radioactive seed, iodine-125, prostate SEED BRACHYTX PD-103 STRANDED FDA Start: 08-05-2018 Insertion, radioactive seed, iodine-125, prostate SEED BRACHYTX PD-103 STRANDED FDA Start: 08-05-2018 Insertion, radioactive seed, iodine-125, prostate SEED BRACHYTX PD-103 STRANDED FDA Start: 08-05-2018 Insertion, radioactive seed, iodine-125, prostate SEED BRACHYTX PD-103 STRANDED FDA Start: 08-05-2018 Insertion, radioactive seed, iodine-125, prostate SEED BRACHYTX PD-103 STRANDED FDA Start: 08-05-2018 Insertion, radioactive seed, iodine-125, prostate SEED BRACHYTX PD-103 STRANDED FDA Start: 08-05-2018 Insertion, radioactive seed, iodine-125, prostate SEED BRACHYTX PD-103 STRANDED FDA Start: 08-05-2018 Insertion, radioactive seed, iodine-125, prostate SEED BRACHYTX PD-103 STRANDED FDA Start: 08-05-2018 Insertion, radioactive seed, iodine-125, prostate SEED BRACHYTX PD-103 STRANDED FDA Start: 08-05-2018 Insertion, radioactive seed, iodine-125, prostate SEED BRACHYTX PD-103 NONSTRAND FDA Start: 08-05-2018 Insertion, radioactive seed, iodine-125, prostate SEED BRACHYTX PD-103 STRANDED FDA Start: 08-05-2018 Insertion, radioactive seed, iodine-125, prostate SEED BRACHYTX PD-103 STRANDED FDA Start: 08-05-2018 Insertion, radioactive seed, iodine-125, prostate SEED BRACHYTX PD-103 STRANDED FDA Start: 08-05-2018 Insertion, radioactive seed, iodine-125, prostate SEED BRACHYTX PD-103 STRANDED FDA Start: 08-05-2018 Insertion, radioactive seed, iodine-125, prostate SEED BRACHYTX PD-103 STRANDED FDA Start: 08-05-2018 Insertion, radioactive seed, iodine-125, prostate SEED BRACHYTX PD-103 STRANDED FDA Start: 08-05-2018 Insertion, radioactive seed, iodine-125, prostate SEED BRACHYTX PD-103 STRANDED FDA Start: 08-05-2018 Insertion, radioactive seed, iodine-125, prostate SEED BRACHYTX PD-103 STRANDED FDA Start: 08-05-2018 Insertion, radioactive seed, iodine-125, prostate SEED BRACHYTX PD-103 STRANDED FDA Start: 08-05-2018 Insertion, radioactive seed, iodine-125, prostate SEED BRACHYTX PD-103 STRANDED FDA Start: 08-05-2018 Insertion, radioactive seed, iodine-125, prostate SEED BRACHYTX PD-103 NONSTRAND FDA Start: 08-05-2018 Insertion, radioactive seed, iodine-125, prostate SEED BRACHYTX PD-103 STRANDED FDA Start: 08-05-2018 Insertion, radioactive seed, iodine-125, prostate SEED BRACHYTX PD-103 STRANDED FDA Start: 08-05-2018 Insertion, radioactive seed, iodine-125, prostate SEED BRACHYTX PD-103 STRANDED FDA Start: 08-05-2018 Insertion, radioactive seed, iodine-125, prostate SEED BRACHYTX PD-103 STRANDED FDA Start: 08-05-2018 Insertion, radioactive seed, iodine-125, prostate SEED BRACHYTX PD-103 STRANDED FDA Start: 08-05-2018 Insertion, radioactive seed, iodine-125, prostate SEED BRACHYTX PD-103 STRANDED FDA Start: 08-05-2018 Insertion, radioactive seed, iodine-125, prostate SEED BRACHYTX PD-103 STRANDED FDA Start: 08-05-2018 Insertion, radioactive seed, iodine-125, prostate SEED BRACHYTX PD-103 STRANDED FDA Start: 08-05-2018 Insertion, radioactive seed, iodine-125, prostate SEED BRACHYTX PD-103 STRANDED FDA Start: 08-05-2018 Insertion, radioactive seed, iodine-125, prostate SEED BRACHYTX PD-103 STRANDED FDA Start: 08-05-2018 Insertion, radioactive seed, iodine-125, prostate SEED BRACHYTX PD-103 NONSTRAND FDA Start: 08-05-2018 Insertion, radioactive seed, iodine-125, prostate SEED BRACHYTX PD-103 STRANDED FDA Start: 08-05-2018 Insertion, radioactive seed, iodine-125, prostate SEED BRACHYTX PD-103 STRANDED FDA Start: 08-05-2018 Insertion, radioactive seed, iodine-125, prostate SEED BRACHYTX PD-103 STRANDED FDA Start: 08-05-2018 Insertion, radioactive seed, iodine-125, prostate SEED BRACHYTX PD-103 STRANDED FDA Start: 08-05-2018 Insertion, radioactive seed, iodine-125, prostate SEED BRACHYTX PD-103 STRANDED FDA Start: 08-05-2018 Insertion, radioactive seed, iodine-125, prostate SEED BRACHYTX PD-103 STRANDED FDA Start: 08-05-2018 Insertion, radioactive seed, iodine-125, prostate SEED BRACHYTX PD-103 STRANDED FDA Start: 08-05-2018 Insertion, radioactive seed, iodine-125, prostate SEED BRACHYTX PD-103 STRANDED FDA Start: 08-05-2018 Insertion, radioactive seed, iodine-125, prostate SEED BRACHYTX PD-103 STRANDED FDA Start: 08-05-2018 Insertion, radioactive seed, iodine-125, prostate SEED BRACHYTX PD-103 STRANDED FDA Start: 08-05-2018 Insertion, radioactive seed, iodine-125, prostate SEED BRACHYTX PD-103 NONSTRAND FDA Start: 08-05-2018 Insertion, radioactive seed, iodine-125, prostate SEED BRACHYTX PD-103 STRANDED FDA Start: 08-05-2018 Insertion, radioactive seed, iodine-125, prostate SEED BRACHYTX PD-103 STRANDED FDA Start: 08-05-2018 Insertion, radioactive seed, iodine-125, prostate SEED BRACHYTX PD-103 STRANDED FDA Start: 08-05-2018 Mesh Brd Preshap e Goldstein 2x4 - [id number] - [id number] Start: 01-07-2021 [facility]: 01-07-2024 Goals Date Patient Goal Desired Activity /State Personal health goal Comment on above: Formatting of this n ote might be different from the original. Evaluation of progress towards goal: To discharge home with support. Personal health goal Comment on above: Formatting of this n ote might be different from the original. Evaluation of progress towards goal: [facility] for skilled home care. Functional Status Date Assessment Result Facility 01-09-2024 Functional status Patient at Baseline [facility] Work Phone: 01-05-2024 Functional status Disability Sta tus Patient at Baseline [facility] Work Phone: 11-30-2023 Functional Status N/A [facility] 11-17-2022 Functional Status N/A [facility] 07-14-2022 Functional Status N/A [facility] 04-07-2022 Functional Status N/A [facility] [place] Mental Status Date Assessment Result Facility 01-09-2024 Cognitive function Cognitive Sta tus Patient at [facility] Work Phone: Clinical Notes 05-04-2020 to 01-09-2024 Note Date & Type Note Facility 01-09-2024 Discharge summary Note Date/Time January 09, 2024 10:06a m [facility] [address] [place], [place] [id number] Discharge Summary Signed Patient: Debbi Zendejas MR#: [id number] : 1945 Acct:[id number] Age/Sex: 78 / M Adm Date: 4 Loc: Room: [address] [place] [address]: Anton Mirza DO Copies to: DO Booker Araiza, ~ Providers Date of Discharge: 01/09/24 Discharging Provider: Anton Mirza Primary Care Provider: Booker Villeda Consults: 01/05/24 19:35 Consult to Cardiology Routine Comment: Consulting Provider: [facility] - Cardiology Reason For Exam: chest pain Has Provider Been Notified: Yes Date of Notification: 01/06/24 Time of Notification: 07:13 Discharge Diagnosis (1) Chest pain: (2) H/O mechanical aortic valve replacement: (3) Chronic systolic (congestive) heart failure: (4) Generalized weakness: (5) Diabetes mellitus type 2 in nonobese: (6) Abnormal stress test: Final Diagnosis Final Discharge Diagnosis: As above Summary Hospital Course Hospital course: This patient is a 78-year-old male with a history of mechanical aortic valve replacement at age 20 for rheumatic heart disease. History of stroke in 1971 with some residual weakness and chronic systolic heart failure. He has been on chronic Coumadin since his valve replacement. He presented to the emergency department on 01/05/2024 with reports of chest pain. Presenting INR was 4.1. His vitals were stable otherwise. Notable for severe troponin elevation or hemodynamic distress. Given his complex cardiovascular history however cardiology was consulted. Echocardiogram revealed ejection fraction of 40 to 45%. 4.5 cm aortic root dilation. Stress test was ordered with areas concerning for infarction prompting subsequent cardiac catheterization on 01/08/2024. Preoperatively he received 10 mg of oral vitamin K for INR reversal. Coronary arteries were clean without any occlusive disease and ongoing medical therapy was recommended with the addition of Entresto and low-dose metoprolol. The patient's INR was subtherapeutic and subsequently postoperatively remained on a heparin drip. He was given 7.5 mg of oral Coumadin the day prior to his discharge in the evening and will resume his regular 5 mg p.o, (6 of 7 days), 2.5 mg once weekly on discharge. His INR is 1.1 on day of discharge however given his long history of Coumadin dosing I do not feel he needs ongoing hospitalization for bridging. Heparin drip will be discontinued on day of discharge and he will receive a large dose Lovenox for bridging over the next 24hours. His Coumadin should begin to take effect and vitamin K should wear off gradually. He is going to follow-up as he normally does in his Coumadin clinic for an INR check on Thursday. Physical Examination: GENERAL APPEARANCE: Alert, up in bed AAOx3 CARDIAC: Normal S1 and S2. Audible valve LUNGS: Clear to auscultation anteriorly ABDOMEN: Positive bowel sounds. Soft, nontender. No guarding or signs of an acute abdomen MUSCULOSKELETAL: No joint erythema or tenderness. EXTREMITIES: No clubbing, cyanosis or edema NEUROLOGICAL: No focal deficits SKIN: Skin normal color, texture and turgor with no lesions or eruptions. PSYCHIATRIC: Appropriate mood and affect 35 minutes were spent coordinating the discharge this patient Time Spent with Patient Time spent providing/coordinating discharge services (# min): 35 Surgeries and Procedures Operation Date: 01/08/24 12:15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 become hard to manage. You develop moderate to severe low back or flank pain. The flank is the side of your body between the ribs and the hip. These symptoms may be an emergency. Get help right away. Call 911. Do not wait to see if the symptoms will go away. Do not drive yourself to the hospital. Summary Benign prostatic hyperplasia (BPH) is an enlarged prostate that is caused by the normal aging process. It is not caused by cancer. An enlarged prostate can press on the urethra. This can make it hard to pass urine. This condition is more likely to develop in men older than 50 years. Get help right away if you suddenly cannot urinate. This information is not intended to replace advice given to you by your health care provider. Make sure you discuss any questions you have with your health care provider. Document Revised: 03/12/2022 Document Reviewed: 03/12/2022 [employer] Patient Education 2022 [employer]. Follow Up Care 02/16/2023 11:38:00 With:MLEVIN BRAMBILA, Zeferino Jose, URL Address: [address] [place] [address]- When: Unknown [facility] 03-21-2024 History of Present illness Narrative* Shazia Jung, [facility] - 11/26/2023 11:30 AM EDT 15 minute [id number] follow-up anticoagulation appointment. INR performed in office per protocol. INR 2.6 (goal range: 2.0-3.0). Patient reports: Taking warfarin dosing as documented. Missed or extra doses of warfarin: No Changes to medications: No Changes to lifestyle (diet / alcohol / smoking / activity): No Recent emergency department visit / hospitalization / health changes / new contraindication to current anticoagulant: No Signs/symptoms of bruising/bleeding or clotting or any intolerable adverse events: No Upcoming procedures: No Anticoagulant prescription needed: No Seen referring provider in the last year Duration of therapy reviewed Assessment: INR is remaining stable in therapeutic range on current warfarin regimen. Plan: Patient instructed to continue warfarin 2.5 mg Fri and 5 mg AOD. Check INR in 6 week(s). Patient verbalizes understanding of anticoagulant dosing instructions and information discussed. Dosing regimen, counseling, and follow-up appointment were provided to the patient. Patient reminded to call with questions or any medication changes. Patient instructed to seek medical attention if anymajor bleeding/bleeding that persists or worsens. Shazia Jung [facility] 11/26/23 1134 documented in this encounterWhite HospitalReapplix [facility] [id number] NoteHNO ID: [id number] Author: Cande CATALAN MD Service: ? 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 BRACHYTHERAPY SUMMARY: 08/05/18 Prostate brachytherapy, I-125, 145 agustin, 88 seeds 23 needles, 32.82 mCi INTERVAL HISTORY: Doing well. Denies new problems or concerns. PSA HISTORY: PSA (ng/mL) Date Value 10/22/2023 0.07 11/03/2022 0.12 10/29/2021 0.12 11/06/2020 0.21 05/03/2020 0.26 09/13/2019 0.40 ALLERGIES No Known Allergies ferrous sulfate 325 mg (65 mg iron) tablet Take 325 mg by mouth at bedtime as needed. tamsulosin (FLOMAX) 0.4 mg Take 0.4 mg by mouth twice daily. LORazepam (ATIVAN) 0.5 mg Take 0.25-0.5 mg by mouth daily at bedtime. warfarin (COUMADIN) 5 mg tablet Take 5 mg by mouth once daily. baclofen (LIORESAL) 20 mg tablet TAKE 1 TABLET BY MOUTH TWICE DAILY WITH FOOD OR MILK NEEDED for spasms REVIEW OF SYSTEMS: D/N = na Hematuria: No Catheter use: no Medications to aid urination: no - Total AUA Score: 23 Bowel movement frequency: 1/day Bowel movement quality: normal Blood per rectum: none Erectile: Partial with medication PHYSICAL EXAM: BP 148/91 Pulse 98 Temp (!) 35.9 ?C (96.7 ?F) Resp 18 Wt 73.3 kg (161 lb 9.6 oz) SpO2 93% KPS: 100 General appearance: Alert and oriented. No acute distress. Rectal exam def Skin: Skin color, texture, turgor normal, no suspicious rashes or lesions. 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 Patient overall doing well. PSA low, and stable. Discussed seeing patient on an as-needed basis, patient wishes to continue PSA or surveillance. Plan to see patient back in 1 year with repeat PSA. 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 BRACHYTHERAPY SUMMARY: 08/05/18 Prostate brachytherapy, I-125, 145 agustin, 88 seeds 23 needles, 32.82 mCi INTERVAL HISTORY: Doing well. Denies new problems or concerns. PSA HISTORY: PSA (ng/mL) Date Value 10/22/2023 0.07 11/03/2022 0.12 10/29/2021 0.12 11/06/2020 0.21 05/03/2020 0.26 09/13/2019 0.40 ALLERGIES No Known Allergies ferrous sulfate 325 mg (65 mg iron) tablet Take 325 mg by mouth at bedtime as needed. tamsulosin (FLOMAX) 0.4 mg Take 0.4 mg by mouth twice daily. LORazepam (ATIVAN) 0.5 mg Take 0.25-0.5 mg by mouth daily at bedtime. warfarin (COUMADIN) 5 mg tablet Take 5 mg by mouth once daily. baclofen (LIORESAL) 20 mg tablet TAKE 1 TABLET BY MOUTH TWICE DAILY WITH FOOD OR MILK [facility]ED [facility] REVIEW OF SYSTEMS: D/N = na Hematuria: No Catheter use: no Medications to aid urination: no - Total AUA Score: 23 Bowel movement frequency: 1/day Bowel movement quality: normal Blood per rectum: none Erectile: Partial with medication PHYSICAL EXAM: BP 148/91 Pulse 98 Temp (!) 35.9 C (96.7 F) Resp 18 Wt 73.3 kg (161 lb 9.6 oz) SpO2 93% KPS: 100 General appearance: Alert and oriented. No acute distress. Rectal exam def Skin: Skin color, texture, turgor normal, no suspicious rashes or lesions. ASSESSMENT/PLAN: Prostate adenocarcinoma, initial PSA 6.59, biopsy Mendon score 3 + 3 = 6 (grade group 1), clinical stage T1c, N0, M0, stage I status post prostate brachytherapy July 2018. Patient overall doing well. PSA low, and stable. Discussed seeing patient on an as-needed basis, patient wishes to continue PSA or surveillance. Plan to see patient back in 1 year with repeat PSA. Signed by: Cande Catalan MD cc: Booker Villeda DO Portions of the above note extracted and edited from previous visit as well as active information included in the EMR. documented in this encounterProm[facility] Nurse Note* Alize Pinedo RN - 11/05/2023 10:50 AM EST AUA 23 Alize Pinedo RN documented in this encounterPromedica [facility]02-08-[facility] History of Present illness Narrative* Shazia Jung, [facility] - 10/15/2023 11:30 AM EST 15 minute [id number] follow-up anticoagulation appointment. INR performed in office per protocol. INR 3.0 (goal range: 2.0-3.0). Patient reports: Taking warfarin dosing as documented. Missed or extra doses of warfarin: No Changes to medications: No Changes to lifestyle (diet / alcohol / smoking / activity): No Recent emergency department visit / hospitalization / health changes / new contraindication to current anticoagulant: No Signs/symptoms of bruising/bleeding or clotting or any intolerable adverse events: No Upcoming procedures: No Anticoagulant prescription needed: No Seen referring provider in the last year Duration of therapy reviewed Assessment: INR is remaining stable in therapeutic range on current warfarin regimen. Plan: Patient instructed to continue warfarin 2.5 mg Fri and 5 mg AOD. Check INR in 6 week(s). Patient verbalizes understanding of anticoagulant dosing instructions and information discussed. Dosing regimen, counseling, and follow-up appointment were provided to the patient. Patient reminded to call with questions or any medication changes. Patient instructed to seek medical attention if anymajor bleeding/bleeding that persists or worsens. Shazia Jung [facility] 10/15/23 1123 [facility] History of Present illness Narrative* Srikanth Schilling, [facility] - 09/03/2023 11:30 AM EST 15 minute [id number] follow-up anticoagulation appointment. INR performed in office per protocol. INR 2.4 (goal range: 2.0-3.0). Patient reports: Taking warfarin dosing as documented. Missed or extra doses of warfarin: No Changes to medications: No Changes to lifestyle (diet / alcohol / smoking / activity): No Recent emergency department visit / hospitalization / health changes / new contraindication to current anticoagulant: No Signs/symptoms of bruising/bleeding or clotting or any intolerable adverse events: No Upcoming procedures: No Anticoagulant prescription needed: No Seen referring provider in the last year Duration of therapy reviewed Assessment: INR is remaining stable in therapeutic range on current warfarin regimen. Plan: Patient instructed to continue warfarin 2.5mg on fri, 5mg all other days. Check INR in 6 week(s). Patient verbalizes understanding of anticoagulant dosing instructions and information discussed. Dosing regimen, counseling, and follow-up appointment were provided to the patient. Patient reminded to call with questions or any medication changes. Patient instructed to seek medical attention if anymajor bleeding/bleeding that persists or worsens. Srikanth Schilling RPH 09/03/231122 documented in this [facility]10[facility]23-2023 Evaluation note* Encounter Date Diagnosis Assessment Notes Treatment Notes Treatment Clinical Notes Jun, KIM (generalized anxiety disorder) (ICD-10 - F41.1) [facility] Other 10-04-2023 Evaluation note* Encounter Date Diagnosis Assessment Notes Treatment Notes Treatment Clinical Notes Jun, Chronic anticoagulation (ICD-10 - Z79.01) [facility] Other 09-07-2023 Evaluation note* Encounter Date Diagnosis Assessment Notes Treatment Notes Treatment Clinical Notes May, KIM (generalized anxiety disorder) (ICD-10 - F41.1) Continue current medication, OARRS reviewed May, Hyperlipidemia, mixed (ICD-10 - E78.2) We will obtain the lab results [facility] Other 08-25-2023 Evaluation note* Encounter Date Diagnosis Assessment Notes Treatment Notes Treatment Clinical Notes Apr, KIM (generalized anxiety disorder) (ICD-10 - F41.1) [facility] Other 06-26-2023 Evaluation note* Encounter Date Diagnosis Assessment Notes Treatment Notes Treatment Clinical Notes Feb, KIM (generalized anxiety disorder) (ICD-10 - F41.1) [facility] Other 05-26-2023 Evaluation note* Encounter Date Diagnosis Assessment Notes Treatment Notes Treatment Clinical Notes January, KIM (generalized anxiety disorder) (ICD-10 - F41.1) [facility] Other 03-13-2023 Hospital Discharge instructions Patient Education 11/17/2022 11:08:14 Erectile Dysfunction Erectile Dysfunction Erectile dysfunction (ED) is the inability to get or keep an erection in order to have sexual intercourse. Erectile dysfunction may include: Inability to get an erection. Lack of enough hardness of the erection to allow penetration. Loss of the erection before sex is finished. What are the causes? This condition may be caused by: Certain medicines, such as: ?Pain relievers. ?Antihistamines. ?Antidepressants. ?Blood pressure medicines. ?Water pills (diuretics). ?Ulcer medicines. ?Muscle relaxants. ?Drugs. Excessive drinking. Psychological causes, such as: ?Anxiety. ?Depression. ?Sadness. ?Exhaustion. ?Performance fear. ?Stress. Physical causes, such as: ?Artery problems. This may include diabetes, smoking, liver disease, or atherosclerosis. ?High blood pressure. ?Hormonal problems, such as low testosterone. ?Obesity. ?Nerve problems. This may include back or pelvic injuries, diabetes mellitus, multiple sclerosis, or Parkinson disease. What are the signs or symptoms? Symptoms of this condition include: Inability to get an erection. Lack of enough hardness of the erection to allow penetration. Loss of the erection before sex is finished. Normal erections at some times, but with frequent unsatisfactory episodes. Low sexual satisfaction in either partner due to erection problems. A curved penis occurring with erection. The curve may cause pain or the penis may be too curved to allow for intercourse. Never having nighttime erections. How is this diagnosed? This condition is often diagnosed by: Performing a physical exam to find other diseases or specific problems with the penis. Asking you detailed questions about the problem. Performing blood tests to check for diabetes mellitus or to measure hormone levels. Performing other tests to check for underlying health conditions. Performing an ultrasound exam to check for scarring. Performing a test to check blood flow to the penis. Doing a sleep study at home to measure nighttime erections. How is this treated? This condition may be treated by: Medicine taken by mouth to help you achieve an erection (oral medicine). Hormone replacement therapy to replace low testosterone levels. Medicine that is injected into the penis. Your health care provider may instruct you how to give yourself these injections at home. Vacuum pump. This is a pump with a ring on it. The pump and ring are placed on the penis and used to create pressure that helps the penis become erect. Penile implant surgery. In this procedure, you may receive: ?An inflatable implant. This consists of cylinders, a pump, and a reservoir. The cylinders can be inflated with a fluid that helps to create an erection, and they can be deflated after intercourse. ?A semi-rigid implant. This consists of two silicone rubber rods. The rods provide some rigidity. They are also flexible, so the penis can both curve downward in its normal position and become straight for sexual intercourse. Blood vessel surgery, to improve blood flow to the penis. During this procedure, a blood vessel from a different part of the body is placed into the penis to allow blood to flow around (bypass) damaged or blocked blood vessels. Lifestyle changes, such as exercising more, losing weight, and quitting smoking. Follow these instructions at home: Medicines Take hzwf-bqn-fkypllj and prescription medicines only as told by your health care provider. Do not increase the dosage without first discussing it with your health care provider. If you are using self-injections, perform injections as directed by your health care provider. Makesure to avoid any veins that are on the surface of the penis. After giving an injection, apply pressure to the injection site for 5 minutes. General instructions Exercise regularly, as directed by your health care provider. Work with your health care provider to lose weight, if needed. Do not use any products that contain nicotine or tobacco, such as cigarettes and e-cigarettes. If you need help quitting, ask your health care provider. Before using a vacuum pump, read the instructions that come with the pump and discuss any questionswith your health care provider. Keep all follow-up visits as told by your health care provider. This is important. Contact a health care provider if: You feel nauseous. You vomit. Get help right away if: You are taking oral or injectable medicines and you have an erection that lasts longer than 4 hours. If your health care provider is unavailable, go to the nearest emergency room for evaluation. An erection that lasts much longer than 4 hours can result in permanent damage to your penis. You have severe pain in your groin or abdomen. You develop redness or severe swelling of your penis. You have redness spreading up into your groin or lower abdomen. You are unable to urinate. You experience chest pain or a rapid heart beat (palpitations) after taking oral medicines. Summary Erectile dysfunction (ED) is the inability to get or keep an erection during sexual intercourse. This problem can usually be treated successfully. This condition is diagnosed based on a physical exam, your symptoms, and tests to determine the cause. Treatment varies depending on the cause, and may include medicines, hormone therapy, surgery, orvacuum pump. You may need follow-up visits to make sure that you are using your medicines or devices correctly. Get help right away if you are taking or injecting medicines and you have an erection that lasts longer than 4 hours. This information is not intended to replace advice given to you by your health care provider. Make sure you discuss any questions you have with your health care provider. Document Released: 08/21/2001 Document Revised: 08/06/2018 Document Reviewed: 09/09/2017 [facility] Patient Education 2020 [employer]. Follow Up Care 07/14/2022 10:11:10 With:ANDREI BRAMBILA, Phuc Rubio, URL Address: [address] [place], [place] [id number]- When:1 year Comments:Alli orders PSA [facility] 03-07-2023 Evaluation note* Encounter Date Diagnosis Assessment Notes Treatment Notes Treatment Clinical Notes Nov, KIM (generalized anxiety disorder) (ICD-10 - F41.1) Continue current medication, OARRS reviewed and no concerns Nov, Hyperlipidemia, mixed (ICD-10 - E78.2) We will await the vascular test that was done by his insurance company and also repeat a lipid panel, we will call with results [facility] Other 03-02-2023 History of Present illness Narrative* G Wallace Catalan MD - 11/06/2022 10:06 AM EST Radiation Oncology - Follow Up Note PATIENT NAME: Debbi Zendejas PATIENT DIAGNOSIS: Prostate adenocarcinoma, 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 BRACHYTHERAPY SUMMARY: 08/05/18 Prostate brachytherapy, I-125, 145 agustin, 88 seeds 23 needles, 32.82 mCi INTERVAL HISTORY: Doing well. Denies new problems or concerns. PSA HISTORY: PSA (ng/mL) Date Value 11/03/2022 0.12 10/29/2021 0.12 11/06/2020 0.21 05/03/2020 0.26 09/13/2019 0.40 ALLERGIES No Known Allergies ferrous sulfate 325 mg (65 mg iron) tablet Take 325 mg by mouth at bedtime as needed. tamsulosin (FLOMAX) 0.4 mg Take 0.4 mg by mouth twice daily. LORazepam (ATIVAN) 0.5 mg Take 0.25-0.5 mg by mouth daily at bedtime. warfarin (COUMADIN) 5 mg tablet Take 5 mg by mouth once daily. baclofen (LIORESAL) 20 mg tablet TAKE 1 TABLET BY MOUTH TWICE DAILY WITH FOOD OR MILK NEEDED forspasms REVIEW OF SYSTEMS: D/N = na Hematuria: No Catheter use: no Medications to aid urination: no - Total AUA Score: 3 Bowel movement frequency: 1/day Bowel movement quality: normal Blood per rectum: none Erectile: Partial with medication PHYSICAL EXAM: BP 145/87 Pulse 88 Temp 36.5 C (97.7 F) Resp 18 Wt 72.6 kg (160 lb) SpO2 95% KPS: 100 General appearance: Alert and oriented. No acute distress. Rectal exam def : Descended right testicle. Empty left scrotal sac, left testicle appears palpable upper scrotal area. Extremities: No deformities, edema, skin discoloration, clubbing or cyanosis. Lymph Nodes: No cervical lymphadenopathy, No supraclavicular lymphadenopathy, No axillary lymphadenopathy. Skin: Skin color, texture, turgor normal, no suspicious rashes or lesions. 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 Patient overall doing well. PSA low, and stable. Plan to see patient back in 1 year with repeat PSA. Signed by: Cande Catalan MD cc: Booker Villeda DO Portions of the above note extracted and edited from previous visit as well as active information included in the EMR. [facility]* Alize Pinedo RN - 11/06/2022 9:51 AM EST AUA 3 Alize Pinedo RN [facility] Hospital Discharge instructions Patient Education 07/14/2022 09:52:15 Benign Prostatic Hyperplasia Benign Prostatic Hyperplasia Benign prostatic hyperplasia (BPH) is an enlarged prostate gland that is caused by the normal agingprocess and not by cancer. The prostate is a walnut-sized gland that is involved in the production of semen. It is located in front of the rectum and below the bladder. The bladder stores urine and the urethra is the tube that carries the urine out of the body. The prostate may get bigger as a man gets older. An enlarged prostate can press on the urethra. This can make it harder to pass urine. The build-up of urine in the bladder can cause infection. Back pressure and infection may progress to bladder damage and kidney (renal) failure. What are the causes? This condition is part of a normal aging process. However, not all men develop problems from this condition. If the prostate enlarges away from the urethra, urine flow will not be blocked. If it enlarges toward the urethra and compresses it, there will be problems passing urine. What increases the risk? This condition is more likely to develop in men over the age of 50 years. What are the signs or symptoms? Symptoms of this condition include: Getting up often during the night to urinate. Needing to urinate frequently during the day. Difficulty starting urine flow. Decrease in size and strength of your urine stream. Leaking (dribbling) after urinating. Inability to pass urine. This needs immediate treatment. Inability to completely empty your bladder. Pain when you pass urine. This is more common if there is also an infection. Urinary tract infection (UTI). How is this diagnosed? This condition is diagnosed based on your medical history, a physical exam, and your symptoms. Tests will also be done, such as: A post-void bladder scan. This measures any amount of urine that may remain in your bladder after you finish urinating. A digital rectal exam. In a rectal exam, your health care provider checks your prostate by putting a lubricated, gloved finger into your rectum to feel the back of your prostate gland. This exam detects the size of your gland and any abnormal lumps or growths. An exam of your urine (urinalysis). A prostate specific antigen (PSA) screening. This is a blood test used to screen for prostate cancer. An ultrasound. This test uses sound waves to electronically produce a picture of your prostate gland. Your health care provider may refer you to a specialist in kidney and prostate diseases (urologist). How is this treated? Once symptoms begin, your health care provider will monitor your condition (active surveillance or watchful waiting). Treatment for this condition will depend on the severity of your condition. Treatment may include: Observation and yearly exams. This may be the only treatment needed if your condition and symptoms are mild. Medicines to relieve your symptoms, including: ?Medicines to shrink the prostate. ?Medicines to relax the muscle of the prostate. Surgery in severe cases. Surgery may include: ?Prostatectomy. In this procedure, the prostate tissue is removed completely through an open incision or with a laparoscope or robotics. ?Transurethral resection of the prostate (TURP). In this procedure, a tool is inserted through the opening at the tip of the penis (urethra). It is used to cut away tissue of the inner core of the prostate. The pieces are removed through the same opening of the penis. This removes the blockage. ?Transurethral incision (TUIP). In this procedure, small cuts are made in the prostate. This lessens the prostate's pressure on the urethra. ?Transurethral microwave thermotherapy (TUMT). This procedure uses microwaves to create heat. The heat destroys and removes a small amount of prostate tissue. ?Transurethral needle ablation (TUNA). This procedure uses radio frequencies to destroy and remove a small amount of prostate tissue. ?Interstitial laser coagulation (ILC). This procedure uses a laser to destroy and remove a small amount of prostate tissue. ?Transurethral electrovaporization (TUVP). This procedure uses electrodes to destroy and remove a small amount of prostate tissue. ?Prostatic urethral lift. This procedure inserts an implant to push the lobes of the prostate away from the urethra. Follow these instructions at home: Take ylut-yot-wvfkjvn and prescription medicines only as told by your health care provider. Monitor your symptoms for any changes. Contact your health care provider with any changes. Avoid drinking large amounts of liquid before going to bed or out in public. Avoid or reduce how much caffeine or alcohol you drink. Give yourself time when you urinate. Keep all follow-up visits as told by your health care provider. This is important. Contact a health care provider if: You have unexplained back pain. Your symptoms do not get better with treatment. You develop side effects from the medicine you are taking. Your urine becomes very dark or has a bad smell. Your lower abdomen becomes distended and you have trouble passing your urine. Get help right away if: You have a fever or chills. You suddenly cannot urinate. You feel lightheaded, or very dizzy, or you faint. There are large amounts of blood or clots in the urine. Your urinary problems become hard to manage. You develop moderate to severe low back or flank pain. The flank is the side of your body between the ribs and the hip. These symptoms may represent a serious problem that is an emergency. Do not wait to see if the symptoms will go away. Get medical help right away. Call your local emergency services (911 in the [place] Do not drive yourself to the hospital. Summary Benign prostatic hyperplasia (BPH) is an enlarged prostate that is caused by the normal aging process and not by cancer. An enlarged prostate can press on the urethra. This can make it hard to pass urine. This condition is part of a normal aging process and is more likely to develop in men over the age of 50 years. Get help right away if you suddenly cannot urinate. This information is not intended to replace advice given to you by your health care provider. Make sure you discuss any questions you have with your health care provider. Document Released: 08/24/2006 Document Revised: 07/19/2019 Document Reviewed: 09/28/2017 [facility] Patient Education 2020 [employer]. Follow Up Care 04/07/2022 13:46:50 With:ANDREI BRAMBILA, Phuc Rubio, URL Address: [address] [place], [place] [id number]- When: Unknown [facility] 08-01-2022 Hospital Discharge instructions Patient Education 04/07/2022 13:43:27 Erectile Dysfunction Erectile Dysfunction Erectile dysfunction (ED) is the inability to get or keep an erection in order to have sexual intercourse. Erectile dysfunction may include: Inability to get an erection. Lack of enough hardness of the erection to allow penetration. Loss of the erection before sex is finished. What are the causes? This condition may be caused by: Certain medicines, such as: ?Pain relievers. ?Antihistamines. ?Antidepressants. ?Blood pressure medicines. ?Water pills (diuretics). ?Ulcer medicines. ?Muscle relaxants. ?Drugs. Excessive drinking. Psychological causes, such as: ?Anxiety. ?Depression. ?Sadness. ?Exhaustion. ?Performance fear. ?Stress. Physical causes, such as: ?Artery problems. This may include diabetes, smoking, liver disease, or atherosclerosis. ?High blood pressure. ?Hormonal problems, such as low testosterone. ?Obesity. ?Nerve problems. This may include back or pelvic injuries, diabetes mellitus, multiple sclerosis, or Parkinson disease. What are the signs or symptoms? Symptoms of this condition include: Inability to get an erection. Lack of enough hardness of the erection to allow penetration. Loss of the erection before sex is finished. Normal erections at some times, but with frequent unsatisfactory episodes. Low sexual satisfaction in either partner due to erection problems. A curved penis occurring with erection. The curve may cause pain or the penis may be too curved to allow for intercourse. Never having nighttime erections. How is this diagnosed? This condition is often diagnosed by: Performing a physical exam to find other diseases or specific problems with the penis. Asking you detailed questions about the problem. Performing blood tests to check for diabetes mellitus or to measure hormone levels. Performing other tests to check for underlying health conditions. Performing an ultrasound exam to check for scarring. Performing a test to check blood flow to the penis. Doing a sleep study at home to measure nighttime erections. How is this treated? This condition may be treated by: Medicine taken by mouth to help you achieve an erection (oral medicine). Hormone replacement therapy to replace low testosterone levels. Medicine that is injected into the penis. Your health care provider may instruct you how to give yourself these injections at home. Vacuum pump. This is a pump with a ring on it. The pump and ring are placed on the penis and used to create pressure that helps the penis become erect. Penile implant surgery. In this procedure, you may receive: ?An inflatable implant. This consists of cylinders, a pump, and a reservoir. The cylinders can be inflated with a fluid that helps to create an erection, and they can be deflated after intercourse. ?A semi-rigid implant. This consists of two silicone rubber rods. The rods provide some rigidity. They are also flexible, so the penis can both curve downward in its normal position and become straight for sexual intercourse. Blood vessel surgery, to improve blood flow to the penis. During this procedure, a blood vessel from a different part of the body is placed into the penis to allow blood to flow around (bypass) damaged or blocked blood vessels. Lifestyle changes, such as exercising more, losing weight, and quitting smoking. Follow these instructions at home: Medicines Take sdet-bgn-vzqjafr and prescription medicines only as told by your health care provider. Do not increase the dosage without first discussing it with your health care provider. If you are using self-injections, perform injections as directed by your health care provider. Makesure to avoid any veins that are on the surface of the penis. After giving an injection, apply pressure to the injection site for 5 minutes. General instructions Exercise regularly, as directed by your health care provider. Work with your health care provider to lose weight, if needed. Do not use any products that contain nicotine or tobacco, such as cigarettes and e-cigarettes. If you need help quitting, ask your health care provider. Before using a vacuum pump, read the instructions that come with the pump and discuss any questionswith your health care provider. Keep all follow-up visits as told by your health care provider. This is important. Contact a health care provider if: You feel nauseous. You vomit. Get help right away if: You are taking oral or injectable medicines and you have an erection that lasts longer than 4 hours. If your health care provider is unavailable, go to the nearest emergency room for evaluation. An erection that lasts much longer than 4 hours can result in permanent damage to your penis. You have severe pain in your groin or abdomen. You develop redness or severe swelling of your penis. You have redness spreading up into your groin or lower abdomen. You are unable to urinate. You experience chest pain or a rapid heart beat (palpitations) after taking oral medicines. Summary Erectile dysfunction (ED) is the inability to get or keep an erection during sexual intercourse. This problem can usually be treated successfully. This condition is diagnosed based on a physical exam, your symptoms, and tests to determine the cause. Treatment varies depending on the cause, and may include medicines, hormone therapy, surgery, orvacuum pump. You may need follow-up visits to make sure that you are using your medicines or devices correctly. Get help right away if you are taking or injecting medicines and you have an erection that lasts longer than 4 hours. This information is not intended to replace advice given to you by your health care provider. Make sure you discuss any questions you have with your health care provider. Document Released: 08/21/2001 Document Revised: 08/06/2018 Document Reviewed: 09/09/2017 [employer] Patient Education 2020 [employer]. 04/07/2022 13:43:26 Benign Prostatic Hyperplasia Benign Prostatic Hyperplasia Benign prostatic hyperplasia (BPH) is an enlarged prostate gland that is caused by the normal agingprocess and not by cancer. The prostate is a walnut-sized gland that is involved in the production of semen. It is located in front of the rectum and below the bladder. The bladder stores urine and the urethra is the tube that carries the urine out of the body. The prostate may get bigger as a man gets older. An enlarged prostate can press on the urethra. This can make it harder to pass urine. The build-up of urine in the bladder can cause infection. Back pressure and infection may progress to bladder damage and kidney (renal) failure. What are the causes? This condition is part of a normal aging process. However, not all men develop problems from this condition. If the prostate enlarges away from the urethra, urine flow will not be blocked. If it enlarges toward the urethra and compresses it, there will be problems passing urine. What increases the risk? This condition is more likely to develop in men over the age of 50 years. What are the signs or symptoms? Symptoms of this condition include: Getting up often during the night to urinate. Needing to urinate frequently during the day. Difficulty starting urine flow. Decrease in size and strength of your urine stream. Leaking (dribbling) after urinating. Inability to pass urine. This needs immediate treatment. Inability to completely empty your bladder. Pain when you pass urine. This is more common if there is also an infection. Urinary tract infection (UTI). How is this diagnosed? This condition is diagnosed based on your medical history, a physical exam, and your symptoms. Tests will also be done, such as: A post-void bladder scan. This measures any amount of urine that may remain in your bladder after you finish urinating. A digital rectal exam. In a rectal exam, your health care provider checks your prostate by putting a lubricated, gloved finger into your rectum to feel the back of your prostate gland. This exam detects the size of your gland and any abnormal lumps or growths. An exam of your urine (urinalysis). A prostate specific antigen (PSA) screening. This is a blood test used to screen for prostate cancer. An ultrasound. This test uses sound waves to electronically produce a picture of your prostate gland. Your health care provider may refer you to a specialist in kidney and prostate diseases (urologist). How is this treated? Once symptoms begin, your health care provider will monitor your condition (active surveillance or watchful waiting). Treatment for this condition will depend on the severity of your condition. Treatment may include: Observation and yearly exams. This may be the only treatment needed if your condition and symptoms are mild. Medicines to relieve your symptoms, including: ?Medicines to shrink the prostate. ?Medicines to relax the muscle of the prostate. Surgery in severe cases. Surgery may include: ?Prostatectomy. In this procedure, the prostate tissue is removed completely through an open incision or with a laparoscope or robotics. ?Transurethral resection of the prostate (TURP). In this procedure, a tool is inserted through the opening at the tip of the penis (urethra). It is used to cut away tissue of the inner core of the prostate. The pieces are removed through the same opening of the penis. This removes the blockage. ?Transurethral incision (TUIP). In this procedure, small cuts are made in the prostate. This lessens the prostate's pressure on the urethra. ?Transurethral microwave thermotherapy (TUMT). This procedure uses microwaves to create heat. The heat destroys and removes a small amount of prostate tissue. ?Transurethral needle ablation (TUNA). This procedure uses radio frequencies to destroy and remove a small amount of prostate tissue. ?Interstitial laser coagulation (ILC). This procedure uses a laser to destroy and remove a small amount of prostate tissue. ?Transurethral electrovaporization (TUVP). This procedure uses electrodes to destroy and remove a small amount of prostate tissue. ?Prostatic urethral lift. This procedure inserts an implant to push the lobes of the prostate away from the urethra. Follow these instructions at home: Take vzik-tka-yitirts and prescription medicines only as told by your health care provider. Monitor your symptoms for any changes. Contact your health care provider with any changes. Avoid drinking large amounts of liquid before going to bed or out in public. Avoid or reduce how much caffeine or alcohol you drink. Give yourself time when you urinate. Keep all follow-up visits as told by your health care provider. This is important. Contact a health care provider if: You have unexplained back pain. Your symptoms do not get better with treatment. You develop side effects from the medicine you are taking. Your urine becomes very dark or has a bad smell. Your lower abdomen becomes distended and you have trouble passing your urine. Get help right away if: You have a fever or chills. You suddenly cannot urinate. You feel lightheaded, or very dizzy, or you faint. There are large amounts of blood or clots in the urine. Your urinary problems become hard to manage. You develop moderate to severe low back or flank pain. The flank is the side of your body between the ribs and the hip. These symptoms may represent a serious problem that is an emergency. Do not wait to see if the symptoms will go away. Get medical help right away. Call your local emergency services (911 in the [place] Do not drive yourself to the hospital. Summary Benign prostatic hyperplasia (BPH) is an enlarged prostate that is caused by the normal aging process and not by cancer. An enlarged prostate can press on the urethra. This can make it hard to pass urine. This condition is part of a normal aging process and is more likely to develop in men over the age of 50 years. Get help right away if you suddenly cannot urinate. This information is not intended to replace advice given to you by your health care provider. Make sure you discuss any questions you have with your health care provider. Document Released: 08/24/2006 Document Revised: 07/19/2019 Document Reviewed: 09/28/2017 [employer] Patient Education 2020 [employer] Follow Up Care 03/17/2022 10:56:39 With:ANDREI BRAMBILA, Phuc Rubio, URL Address: [address] [place] [id number] [phone] When:Within 3 Month(s) [facility] 07-19-2022 Evaluation note* Encounter Date Diagnosis Assessment Notes Treatment Notes Treatment Clinical Notes Mar, KIM (generalized anxiety disorder) (ICD-10 - F41.1) [facility] Other 05-19-2022 Evaluation note* Encounter Date Diagnosis Assessment Notes Treatment Notes Treatment Clinical Notes January, KIM (generalized anxiety disorder) (ICD-10 - F41.1) [facility] Other 03-02-2022 Evaluation note* Encounter Date Diagnosis Assessment Notes Treatment Notes Treatment Clinical Notes Nov, Chronic anticoagulation (ICD-10 - Z79.01) Continue with Coumadin clinic and call if any concerns Nov, Chronic systolic (congestive) heart failure (ICD-10 - I50.22) Continue with low-sodium diet Nov, KIM (generalized anxiety disorder) (ICD-10 - F41.1) No changes, we will continue to monitor Nov, H/O aortic valve replacement (ICD-10 - Z95.2) [facility] Other 01-20-2022 Evaluation note* Encounter Date Diagnosis Assessment Notes Treatment Notes Treatment Clinical Notes Sep, KIM (generalized anxiety disorder) (ICD-10 - F41.1) [facility] Other 11-22-2021 Evaluation note* Encounter Date Diagnosis Assessment Notes Treatment Notes Treatment Clinical Notes Jul, KIM (generalized anxiety disorder) (ICD-10 - F41.1) [facility] Other 11-09-2021 Evaluation note* Encounter Date Diagnosis Assessment Notes Treatment Notes Treatment Clinical Notes Jul, Flu vaccine need (ICD-10 - Z23) [facility] Other 10-19-2021 Evaluation note* Encounter Date Diagnosis Assessment Notes Treatment Notes Treatment Clinical Notes Jun, KIM (generalized anxiety disorder) (ICD-10 - F41.1) [facility] Other 10-15-2021 Evaluation note* Encounter Date Diagnosis Assessment Notes Treatment Notes Treatment Clinical Notes Jun, Acute non-recurrent maxillary sinusitis (ICD-10 - J01.00) Discussed treatment, side effects and to take with foods. He will call the coumadin clinic today to let them know about the augmentin [facility] Other 08-28-2020 NotePROCEDURE: XR FEMUR RT HISTORY: Pain COMPARISON: None. FINDINGS: BONES:Moderate narrowing of the medial joint space of the knee. No significant narrowing of the hip joint space. Small degenerative osteophyte on the lateral superior rim of the acetabulum. No fracture or dislocation. SOFT TISSUES:No visible soft tissue swelling. EFFUSION:None visible. OTHER: Radioactive seeding of the prostate. IMPRESSION: 1. No acute bone abnormality. Minimal degenerative change of the hip joint. 2. Moderate degenerative changes of the knee joint. Electronically authenticated by: YELENA MAGALLANES Date: 2020-05-04 11:33Evaluation + Plan note Future Appointments Appointment Date:07/21/2022 02:30:00 PM Scheduled Provider:Phuc FORBES MD Location:[facility] Appointment Type:URO Office Visit [facility] Evaluation + Plan note Future Appointments Appointment Date:11/17/2022 10:15:00 AM Scheduled Provider:Phuc FORBES MD Location:[facility] Appointment Type:URO Office Visit [facility] Evaluation + Plan note Future Appointments Appointment Date:11/23/2023 10:15:00 AM Scheduled Provider:Phuc FORBES MD Location:[facility] Appointment Type:URO Office Visit [facility] Evaluation + Plan note Future Appointments Appointment Date:12/05/2024 10:15:00 AM Scheduled Provider:Zeferino CHARLES MD Location:[facility] Appointment Type:URO Office Visit Diagnostic Tests Pending * PSA Total 09/07/24 [facility] evaluation [facility]No [facility] Other Evaluation note* Diagnosis Prostate cancer (HCC)- Primary Malignant neoplasm of prostate [facility] Diagnosis assisted (current) use of anticoagulants [Z79.01]- Primary Long-term (current) use of anticoagulants H/O mechanical aortic valve replacement [facility] Diagnosis assisted (current) use of anticoagulants [Z79.01]- Primary Long-term (current) use of anticoagulants H/O mechanical aortic valve replacement [facility] Diagnosis Prostate cancer (HCC)- Primary Malignant neoplasm of prostate [facility] [place] [facility] Diagnosis assisted (current) use of anticoagulants [Z79.01]- Primary Long-term (current) use of anticoagulants H/O mechanical aortic valve replacement [facility] Diagnosis Onset Date Resolution Status Chronic systolic (congestive) heart failure acute KIM (generalized anxiety disorder) acute H/O mechanical aortic valve replacement acute Fatigue noneactive Chest pain acute Chronic systolic (congestive) heart failure acute Generalized weakness acute H/O mechanical aortic valve replacement acute [facility] Work Phone: Evaluation note* Diagnosis Onset Date Resolution Status Chronic systolic (congestive) heart failure acute KIM (generalized anxiety disorder) acute H/O mechanical aortic valve replacement acute Fatigue noneactive Abnormal stress test acute Chest pain acute Chronic systolic (congestive) heart failure acute Diabetes mellitus type 2 in nonobese acute Generalized weakness acute H/O mechanical aortic valve replacement acute Hypertension acute [facility] Work Phone: Evaluation note* Diagnosis Onset Date Resolution Status Chronic systolic (congestive) heart failure acute KIM (generalized anxiety disorder) acute H/O mechanical aortic valve replacement acute Fatigue noneactive Abnormal stress test acute Chest pain acute Chronic systolic (congestive) heart failure acute Diabetes mellitus type 2 in nonobese acute Generalized weakness acute H/O mechanical aortic valve replacement acute Hypertension acute Type 2 diabetes mellitus with hyperglycemia acute [facility] Work Phone: History and physical note Author Liu Ferraro [facility] January 05, 2024 7:35pm Note Date/Time January 05, 2024 7:3 5pm [facility] [address] [place] [address] Hospitalist H&P Signed Patient: Debbi Zendejas MR#: [id number] : 1945 Acct:[id number] Age/Sex: 78 / M Adm Date: 4 Loc: ER Room: Type: [facility] ER Attending Dr: Copies to: MD Zeferino Prado DO Thomas R Conley, DO~ HPI DATE OF EXAMINATION: 01/05/24 CHIEF COMPLAINT: Chest pain HISTORY OF PRESENT ILLNESS: Patient is a pleasant 78-year-old male with history of mechanical aortic valve replacement in 1966 on warfarin, 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 Patient presented to the emergency room with complaint of feeling weak along with mid sternal/right sternal border chest pain. He mentioned having flu like symptoms with diarrhea couple of weeks ago which has resolved but has been feeling weak. Denies fever, chills, cough, nausea, vomiting, diarrhea, headacheor dizziness. The last couple of weeks he has also noticed having intermittent chest pain which is sometimes exertional. Pain lasted for short time and then resolved by itself. Pain is nonpleuritic and nonreproducible but associated with shortness of breath. Denies prior history of coronary artery disease. ER INR 4.1 with troponin 15.3. Currently denies having chest pain and will be keptin observation to rule out acute coronary syndrome. Review of Systems Review of Systems All other systems reviewed & are negative unless noted below or in HPI [facility] Medical History (Updated 01/05/24 @ 19:33 by Liu Ferraro MD) Prostate cancer Surgical History (Updated 11/13/23 @ 10:42 by Booker Villeda DO) H/O mechanical aortic valve replacement Hx of aortic valve replacement Family History Brother Legacy FamHx Relation: brother #3 Brother Legacy FamHx Relation: brother #4 Brother Heart disease Legacy FamHx Relation: Brother(s) Father Grandparent Legacy FamHx Relation: Maternal Grand Father Grandparent Legacy FamHx Relation: Maternal Grand Mother Grandparent Legacy FamHx Relation: Paternal Grand Father Grandparent Legacy FamHx Relation: Paternal Grand Mother Mother Sister Social History Smoking Status: Never smoker Substance Use Type: None Meds Medications and Allergies Allergies tamsulosin Allergy (Verified 01/05/24 14:45) Unknown Reaction Home Medications baclofen 20 mg tablet 10 mg PO BID PRN muscle spasm 07/23/18 [History Confirmed 01/05/24] warfarin 5 mg tablet 5 mg PO .complex 07/23/18 [History Confirmed 01/05/24] albuterol sulfate 90 mcg/actuation aerosol inhaler 1 puff inhalation Q4HR PRN shortness of breath or wheezing 11/13/23 [History Confirmed 01/05/24] ferrous sulfate 325 mg (65 mg iron) tablet 325 mg PO DAILY 11/13/23 [History Confirmed 01/05/24] fluticasone propionate 50 mcg/actuation nasal spray,suspension 1 spray intranasal DAILY PRN allergy symptoms 11/13/23 [History Confirmed 01/05/24] lorazepam 0.5 mg tablet 0.5 mg PO DAILY PRN anxiety 30 days #30 tabs 11/13/23 [Rx Confirmed 01/05/24] multivitamin (Multiple Vitamins tablet) 1 tab PO DAILY 11/13/23 [History Confirmed 01/05/24] tadalafil 20 mg tablet 20 mg PO DAILY PRN sexual activity 01/05/24 [History Confirmed 01/05/24] tamsulosin 0.4 mg capsule 0.4 mg PO DAILY 01/05/24 [History Confirmed 01/05/24] Exam Physical Exam Vital Signs: Temp Pulse Resp BP Pulse Ox O2 Del Method 98.7 F 88 15 141/76 H 92 L Room Air 01/05/24 17:17 01/05/24 19:00 01/05/24 19:00 01/05/24 19:00 01/05/24 19:00 01/05/24 19:00 Const General: cooperative Orientation: alert, awake and oriented x3 Eyes Pupils: PERRL EOM: EOM intact bilaterally and No nystagmus Neck Neck: normal visual inspection and full ROM Resp Effort & Inspection: normal respiratory effort and able to speak in complete sentences Auscultation: no rales, no rhonchi and no wheezes Cardio Rate: regular rate Rhythm: regular rhythm Heart Sounds: S1 normal, S2 normal and murmur (Mechanical valve) other GI Palpation: soft, not firm, no guarding and nontender Neuro General: patient alert, patient awake, patient oriented x3, moves all extremities, no focal motor deficits and CN's II-XI intact bilaterally Extrem General: no clubbing, cyanosis or edema and no calf tenderness Results - Hospitalist H&P Lab Results Labs: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
[2024-01-16 14:33] LABS: Basophils Percent Auto 0.2 % (0.2-2.0); Eosinophils Absolute Auto 0.1 10^3/uL (0.0-0.7); Eosinophils Percent Auto 1.6 % (0.9-7.0); Hematocrit 40.7 % (42.0-54.0); Hemoglobin 13.9 g/dL (14.0-18.0); Immature Granulocytes Abs Auto 0.03 10^3/uL (0.00-0.03); Immature Granulocytes Pct Auto 0.3 % (0.0-0.5); Lymphocytes Absolute Auto 1.1 10^3/uL (1.2-3.8); Lymphocytes Percent Auto 12.2 % (20.5-60.0); Mean Corpuscular HGB Conc 34.2 g/dL (29.9-35.2); Mean Corpuscular Volume 93.8 fL (80.0-94.0); Mean Platelet Volume 11.6 fL (9.5-13.5); Monocytes Absolute Auto 0.6 10^3/uL (0.3-0.8); Neutrophils Absolute Auto 7.1 10^3/uL (1.4-6.5); Neutrophils Percent Auto 78.7 % (43.0-75.0); Platelet Count 142 10^3/uL (150-450); Red Blood Count 4.34 10^6/uL (4.70-6.10); Red Cell Distribution Width 12.8 % (11.0-15.0)
[2024-01-16 14:51] LABS: Anion Gap 12.5; BUN Creatinine Ratio 12.6; Carbon Dioxide 25.5 mmol/L (21.0-32.0); Chloride 100 mmol/L (98-107); Estimated GFR (African America >60 (>=60); Estimated GFR (Non-African Ame >60 (>=60); Glucose 305 mg/dL (74-106); Sodium 134 mmol/L (136-145); Troponin I High Sensitivity 10.4 pg/mL (4.0-76.1)
--- NOTE | 2024-01-16 15:23 | ED_ITS ---
HPI HPI - General Adult General Chief complaint: Weakness Stated complaint: DIZZINESS/ GENERAL WEAKNESS Time Seen by Provider: 01/16/24 13:19 Source: patient Mode of arrival: walk-in Limitations: no limitations History of Present Illness HPI narrative: 78-year-old male to the emergency department with chief complaint of feeling unwell while last night after taking a Dose of metformin. He reports he was recently diagnosed with diabetes after his discharge from prior lungs. He was started on metformin 500 mg twice a day and told to adhere to a diabetic diet. He has not been eating a diabetic diet. He took metformin for the 1st time last night and it sprayed some mild nausea and then felt anxious and developed tingling in his hands. This is all resolved. He feels better today. He was unsure if He should continue taking the metformin. He denies any chest pain, shortness breath, numbness, weakness, tingling, headache, vision changes, difficulty walking, difficulty speaking. Related Data Home Medications ?Medication ?Instructions ?Recorded ?Confirmed lorazepam 0.5 mg tablet 0.5 mg PO .hs 01/12/24 01/12/24 metoprolol succinate 25 mg 25 mg PO DAILY 01/12/24 01/12/24 tablet,extended release 24 hr sacubitril 24 mg-valsartan 26 mg 1 tab PO DAILY 01/12/24 01/12/24 tablet (Entresto) tadalafil 20 mg tablet 20 mg PO PRN PRN sexual activity 01/12/24 01/12/24 tamsulosin 0.4 mg capsule 0.4 mg PO Q24H 01/12/24 01/12/24 warfarin 5 mg tablet 5 mg PO .COMPLEX 01/12/24 01/12/24 Allergies Allergy/AdvReac Type Severity Reaction Status Date / Time No Known Drug Allergies Allergy Verified 01/12/24 10:55 Opioid HPI Opioid Management Most Recent Opioid Data: No Data to Display Review of Systems ROS Status of ROS 10 or more systems reviewed and unremark able except as noted in history and below Exam Narrative Exam Narrative: VITALS: I have reviewed the triage vital signs. GENERAL: Well developed, well appearing adult in no acute distress. NEURO: Alert and oriented. Moves all extremities. Face is symmetric and expressive. EYES: PERRL. No scleral icterus or conjunctival injection. No discharge. HENT: Normocephalic, atraumatic. Hearing is grossly intact. Nares grossly patent and without discharge. Mucous membranes moist. NECK: No JVD. Patient moves neck without restriction. CARDIO: Rhythm regular. Normal rate. PULM: Easy respirations. No increased work of breathing. No stridor. GI/: Normal appearing abdomen. EXTREMITIES: Symmetric muscle bulk. No joint swelling. No clubbing, cyanosis, or deformity. SKIN: Warm and dry. Normal turgor. No rash or lesions appreciated. PSYCH: Anxious Constitutional Vital Signs, click to edit/add: Last Vital Signs Temp 98.1 F 01/16/24 13:21 Pulse 91 H 01/16/24 13:21 Resp 20 01/16/24 13:21 BP 122/79 01/16/24 13:21 Pulse Ox 96 01/16/24 13:21 O2 Del Method Room Air 01/16/24 13:21 Course Vital Signs Vital signs: Vital Signs Temperature 98.1 F 01/16/24 13:21 Pulse Rate 91 H 01/16/24 13:21 Respiratory Rate 20 01/16/24 13:21 Blood Pressure 122/79 01/16/24 13:21 Pulse Oximetry 96 01/16/24 13:21 Oxygen Delivery Method Room Air 01/16/24 13:21 Temperature 98.1 F 01/16/24 13:21 Pulse Rate 91 H 01/16/24 13:21 Respiratory Rate 20 01/16/24 13:21 Blood Pressure 122/79 01/16/24 13:21 Pulse Oximetry 96 01/16/24 13:21 Oxygen Delivery Method Room Air 01/16/24 13:21 Medical Decision Making [facility] Narrative Medical decision making narrative: 78-year-old male to the emergency department with chief complaint of feeling unwell last morning. Unstable, the patient is afebrile. He is currently symptomatically. Basic labwork is ordered. He is hyperglycemic and was no nonfasting diabetic. CBC and chemistry reviewed. Aside from his hyperglycemia there is no major Abnormality. No evidence of DKA. Troponin negative. Discussed continuing taking metformin with the patient that symptoms will improve. Discussed likely anxiety reaction after his symptoms began. He was here to diabetic diet. He will call his PCP for follow-up. Return precautions were discussed. All questions were answered. The patient was discharged home. Lab Data Labs: Lab Results 01/16/24 01/16/24 Range/Units 13:24 14:23 WBC 9.0 (4.0-11.0) 10^3/uL RBC 4.34 L (4.70-6.10) 10^6/uL Hgb 13.9 L (14.0-18.0) g/dL Hct 40.7 L (42.0-54.0) % MCV 93.8 (80.0-94.0) fL MCH 32.0 (25.9-34.0) pg MCHC 34.2 (29.9-35.2) g/dL RDW 12.8 (11.0-15.0) % Plt Count 142 L (150-450) 10^3/uL MPV 11.6 (9.5-13.5) fL Neut % (Auto) 78.7 H (43.0-75.0) % Lymph % (Auto) 12.2 L (20.5-60.0) % Taylor % (Auto) 7.0 (1.7-12.0) % Eos % (Auto) 1.6 (0.9-7.0) % Baso % (Auto) 0.2 (0.2-2.0) % Neut # (Auto) 7.1 H (1.4-6.5) 10^3/uL Lymph # (Auto) 1.1 L (1.2-3.8) 10^3/uL Taylor # (Auto) 0.6 (0.3-0.8) 10^3/uL Eos # (Auto) 0.1 (0.0-0.7) 10^3/uL Baso # (Auto) 0.0 (0.0-0.1) 10^3/uL Abs Immat Gran (auto) 0.03 (0.00-0.03) 10^3/uL Imm/Tot Granulo (auto) 0.3 (0.0-0.5) % Sodium 134 L (136-145) mmol/L Potassium 4.0 (3.5-5.1) mmol/L Chloride 100 (98-107) mmol/L Carbon Dioxide 25.5 (21.0-32.0) mmol/L Anion Gap 12.5 BUN 13.0 (7.0-18.0) mg/dL Creatinine 1.03 (0.70-1.30) mg/dL Est GFR ( Amer) >60 (>=60) Est GFR (Non-Af Amer) >60 (>=60) BUN/Creatinine Ratio 12.6 Glucose 305 H (74-106) mg/dL Calcium 9.0 (8.5-10.1) mg/dL Troponin I High Sens 10.4 (4.0-76.1) pg/mL POC Glucose 331 H (74-106) mg/dL Discharge Plan Discharge Stand Alone Forms: Portal Instructions Chief Complaint: Weakness Clinical Impression: Anxiety Patient Disposition: Home, Self-Care Time of Disposition Decision: 15:03 Condition: Good Mode of Transportation: Private Vehicle Prescriptions / Home Meds: No Action metoprolol succinate 25 mg tablet extended release 24 hr 25 mg PO DAILY Entresto 24-26 mg tablet 1 tab PO DAILY warfarin 5 mg tablet 5 mg PO .COMPLEX Rx Instructions: 5 mg orally 5 mg daily and 2.5 mg on thursday tadalafil 20 mg tablet 20 mg PO PRN PRN (Reason: sexual activity) tamsulosin 0.4 mg capsule 0.4 mg PO Q24H lorazepam 0.5 mg tablet 0.5 mg PO .hs Print Language: Mosotho Instructions: Anxiety (ED), Diabetic Hyperglycemia (ED), Mediterranean Diet (DC) Additional Instructions: Follow up your doctor this week. Continue to take metformin. Here to a diabetic diet. Referrals: Physician,Non-Staff, MD [Primary Care Provider] - 1 week
[2024-01-16 15:27] VITALS: BP 156/82
== END 2024-01-16 15:35 | disposition home or self-care (01) ==
PROVIDERS: Emergency Provider Student in an Organized Health Care Education/Training Program
DX: F41.9 Anxiety disorder, unspecified (principal); Z79.84 Long term (current) use of oral hypoglycemic drugs; Z79.01 Long term (current) use of anticoagulants; E11.65 Type 2 diabetes mellitus with hyperglycemia
CPT/HCPCS: 36415; 36416; 71045; 80048; 84484; 85025; 93005; 99285

== ENCOUNTER 2025-02-23 18:46 | Emergency (ER) | payer MEDICARE, SELFPAY ==
--- OUTSIDE RECORDS SUMMARY | 2025-02-20 11:15 | XMS_ITS | Encounter Summary ---
Author Organization [facility] [employer] [facility] tem Address [id number] [address] [place] [address] Care Team Providers Care Wedding Planning Internship Name Role Phone Casper Vilchis DO Primary Care Provider Destiney chavis Encounter Details Date Type Department Care Team (Latest Contact Info) Description 02/20/2025 11:15 AM EDT Follow Up Anticoagulation [facility] Medication Management [address] [place] [address] detention (current) use of anticoagulants [Z79.01] (Primary Dx); H/O aortic valve replacement--1967 ball in cage Social History Tobacco Use Types Packs/Day Years Used Date Smoking Tobacco: Former Cigarettes 2 2 0 12/07/1977 - 12/08/1979 Smokeless Tobacco: Never Alcohol Use Standard Drinks/Week Comments Not Currently 0 (1 standard drink = 0.6 oz pur e alcohol) [facility] Utilities Answer Date Recorded In the past 12 months has e [employer], gas, oil, or water [employer] threatened to shut off services in your home? No 01/03/2025 AUDIT-C Answer Date Recorded Frequency of Alcohol Consumption Never 12/08/2019 Average Number of Drinks Not on file 020 Frequency of Binge Drinking Not on file 10/2019 PRAPARE - Transportation Answer Date Re corded In the past 12 months, has l ack of transportation kept you from medical appointments or from getting medications? No 12/07 In the past 12 months, has l ack of transportation kept you from meetings, work, or from getting things needed for daily living? No 01/03/2025 Housing Instability Answer Date Recorde d Are you worried or concerned that in the next two months you may not have stable housing that you own, rent or stay in as a part of a household? No 01/03/2025 Childcare Answer Date Recorded Childcare Unknown 02/16/2019 Employment Answer Date Recorded Employment Unknown 02/16/2019 Hunger Screening Answer Date Recorded Within the past 12 months we worried whether our food would run out before we got money to buy more. Never True 02/02/2025 Within the past 12 months th e food we bought just didn't last and we didn't have money to get more. Never True 02/02/2025 Purpose - Life Answer Date Recorded Purpose and direction in life Unknown Sex and Gender Information Value Date Recorded Sex Assigned at Not on file Legal Sex Male 11:57 AM EDT Gender Identity Not on file Sexual Orientation Not on file documented as of this encounter Progress Notes * Shazia Jung, [facility] - 02/20/2025 11:15 AM EDT 15 minute [id number] follow-up anticoagulation appointment. INR performed in office per protocol. INR 1.4 (goal range: 2.5-3.5). Patient reports: Taking warfarin dosing as documented. Missed or extra doses of warfarin: No Changes to medications: YES Amiodarone stopped 02/08 Changes to lifestyle (diet / alcohol / smoking / activity): No Recent emergency department visit / hospitalization / health changes / new contraindication to current anticoagulant: No Signs/symptoms of bruising/bleeding or clotting or any intolerable adverse events: No Upcoming procedures: No Anticoagulant prescription needed: No Seen referring provider in the last year Duration of therapy reviewed Assessment: INR remains low. Patient reports no missed doses. We will increase weekly dose additional 12.5% Plan: Patient instructed to increase to warfarin 10 mg 02/20, then 7.5 mg Thu/e/ and 7.5 mg AOD . Check INR in 10 day(s). Patient verbalizes understanding of anticoagulant dosing instructions and information discussed. Dosing regimen, counseling, and follow-up appointment were provided to the patient. Patient reminded to call with questions or any medication changes. Patient instructed to seek medical attention if anymajor bleeding/bleeding that persists or worsens. Shazia Jung, [facility] 02/20/25 1121 documented in this encounter Plan of Treatment Upcoming Encounters Date Type Department Care Team (Late st Contact Info) Description 03/02/2025 12:30 PM EDT Follow Up Anticoagulation [facility] Medication Management [address] [place] [address] 03/02/2025 1:00 PM EDT Office Visit [facility] [address] [place] [phone] Casper Swain MD [address] [place] [address] Robert Jade MD [address] [place], [place] [id number] 03/14/2025 1:00 PM EDT Ancillary Procedure [facility] [address] [place] [phone] 05/29/2025 11:15 AM EDT Office Visit [facility] [address] [place] [phone] Tristan Watson MD [address] [place], [place] [phone] documented as of this encounter Goals Goal Patient Goal Type Associated Problems Recent Progress Patient-Stated? Author <enter goal here> General Yes Viola Gamble, RN Note: Evaluation of progress towards goal: patient progressing toward safe discharge home. 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) use of anticoagulants [Z79.01] H/O aortic valve replacement--1967 ball in cage documented in this encounter Results * (ABNORMAL) POCT Protime / INR (02/20/2025 11:13 AM EDT) INR 1.4(A) 0.8 - 1.2 MANUALLY TRANSCRIBED RESULTS 02/20/2025 11:1 3 AM EDT [facility] Medication Management POINT O F CARE TEST ORDERABLES Final Result MANUALLY TRANSCRIBED RESULTS documented in this encounter Visit Diagnoses Diagnosis detention (current) use of anticoagulants [Z79.01]- Primary Long-term (current) use of anticoagulants H/O aortic valve replacement--1967 ball in cage documented in this encounter Care Teams Wedding Planning Internship Relationship Specialty Start Date End Date Casper Vilchis DO PCP - General Family Medicine 11/07/24 Casper Vilchis DO [address] [place] [address] Provider Family Medicine 11/14/24 documented as of this encounter
[2025-02-23 18:52] VITALS: BP 167/74; PULSE 66; TEMP 36.4; O2SAT 68; BMI 16.3
--- OUTSIDE RECORDS SUMMARY | 2025-02-23 18:53 | XMS_ITS | Encounter Summary ---
Author Organization [employer] s tem Address [id number] [address] [place] [address] Care Team Providers Care Event Marketing Manager Name Role Phone Casper Vilchis DO Primary Care Provider Destiney chavis Encounter Details Date Type Department Care Team (Latest Contact Info) Description 02/14/2025 Travel Social History Tobacco Use Types Packs/Day Years Used Date Smoking Tobacco: Former Cigarettes 2 2 0 12/07/1977 - 12/08/1979 Smokeless Tobacco: Never Alcohol Use Standard Drinks/Week Comments Not Currently 0 (1 standard drink = 0.6 oz pur e alcohol) [facility] Utilities Answer Date Recorded In the past 12 months has e electric, gas, oil, or water company threatened to shut off services in your [...] on file documented as of this encounter Plan of Treatment Upcoming Encounters Date Type Department Care Team (Late st Contact Info) Description 03/02/2025 12:30 PM EDT Follow Up Anticoagulation [facility] Medication Management [address] [place] [address] 03/02/2025 1:00 PM EDT Office Visit [facility] [address] [place] [phone] Casper Swain MD [address] [place] [address] [facility] [place] [phone] Robert Jade MD [address] [place], [place] [phone] 03/14/2025 1:00 PM EDT Ancillary Procedure [facility] [address] [place] [phone] 05/29/2025 11:15 AM EDT Office Visit [facility] [address] [place] [phone] Tristan Watson MD [address] [place], [place] [phone] documented as of this encounter Goals Goal Patient Goal Type Associated Problems Recent Progress Patient-Stated? Author <enter goal here> General Yes Viola Gamble, RN Note: Evaluation of progress towards goal: patient progressing toward safe discharge home. documented as of this encounter Visit Diagnoses Not on filedocumented in this encounter Care Teams Event Marketing Manager Relationship Specialty Start Date End Date Casper Vilchis DO PCP - General Family Medicine 11/07/24 Casper Vilchis DO [address] [place] [address] Provider Family Medicine 11/14/24 documented as of this encounter
--- OUTSIDE RECORDS SUMMARY | 2025-02-23 18:53 | XMS_ITS | Encounter Summary ---
Author Organization [employer] s tem Address [id number] [address] [place] [address] Care Team Providers Care Grades 1 6 Tutor Name Role Phone Casper Vilchis DO Primary Care Provider Destiney chavis Encounter Details Date Type Department Care Team (Late st Contact Info) Description 02/20/2025 Telephone [facility] General [facility] [address] [place] [phone] Randa Maldonado, VIRTUALIZATION ENGINEER-CHEMICAL TECHNICIAN [address] [place], [place] [id number] Social History Tobacco Use Types Packs/Day Years Used Date Smoking Tobacco: Former Cigarettes 2 2 0 12/07/1977 - 12/08/1979 Smokeless Tobacco: Never Alcohol Use Standard Drinks/Week Comments Not Currently 0 (1 standard drink = 0.6 oz pur e alcohol) [facility] Utilities Answer Date Recorded In the past 12 months has e [employer], gas, oil, or water [employer] threatened to shut off services in your [...] on file documented as of this encounter Miscellaneous Notes * Telephone Encounter - Cassy Ferrell - 02/20/2025 11:55 AM EDT Called [facility] regarding the abnormal cologuard test referral that our office received from Dr Vilchis, left a message on voicemail to call the office back to schedule an appointment. * Telephone Encounter - Cassy Ferrell - 02/20/2025 11:55 AM EDT Called [facility] regarding the referral that our office received, left a message on voicemail to call the office back to schedule an appointment. documented in this encounter Plan of Treatment Upcoming Encounters Date Type Department Care Team (Late st Contact Info) Description 03/02/2025 12:30 PM EDT Follow Up Anticoagulation [facility] Medication Management [address] [place] [address] 03/02/2025 1:00 PM EDT Office Visit [facility] [address] [place] [address] Casper Swain MD [address] [place] [address] Robert Jade MD [address] [place] [address] 03/14/2025 1:00 PM EDT Ancillary Procedure [facility] [address] [place] [phone] 05/29/2025 11:15 AM EDT Office Visit [facility] [address] [place] [id number] Tristan Watson MD [address] [place] [address] documented as of this encounter Goals Goal Patient Goal Type Associated Problems Recent Progress Patient-Stated? Author <enter goal here> General Yes Viola Gamble, RN Note: Evaluation of progress towards goal: patient progressing toward safe discharge home. documented as of this encounter Visit Diagnoses Not on filedocumented in this encounter Care Teams Grades 1 6 Tutor Relationship Specialty Start Date End Date Casper Vilchis DO PCP - General Family Medicine 11/07/24 Casper Vilchis DO [address] [place] [address] Provider Family Medicine 11/14/24 documented as of this encounter
--- OUTSIDE RECORDS SUMMARY | 2025-02-23 18:53 | XMS_ITS | Clinical Summary ---
Author Organization [employer] Address [id number] [address] [place] [address] Care Team Providers Care Licensed Journeyman Electrician Name Role Phone Casper Vilchis DO Primary Care Provider Destiney chavis Allergies No known active allergies Medications ferrous sulfate 325 (65 FE) mg tablet Take 1 tablet (325 mg total) by mouth as needed. Active acetaminophen (TYLENOL) 500 mg tablet Take 1 tablet (500 mg total) by mouth every 4 (four) hours as needed. Active tamsulosin (FLOMAX) 0.4 mg capsule Take 1 capsule (0.4 mg total) by mouth in the morning. Active empagliflozin (JARDIANCE) 10 mg tablet tablet Take 1 tablet (10 mg total) by mouth in the morning. 90 tablet 3 5 Active sacubitriL-vals yuliya (ENTRESTO) 24-26 mg tablet Take 0.5 tablets by mouth in the morning and 0.5 tablets before bedtime. 90 tablet 3 5 Active BD ALCOHOL SWABS pads, medicated use twice daily 5 Active ONETOUCH ULTRA TEST strip USE DIRECTED to test BLOOD SUGAR TWICE DAILY 5 Active metFORMIN XR (GLUCOPHAGE XR) 500 mg 24 hr tablet Take 1 tablet (500 mg total) by mouth in the morning and 1 tablet (500 mg total) in the evening. Take with meals. Active aspirin 81 mg Take 1 tablet (81 mg total) by mouth in the morning. 30 tablet 1 5 Active pantoprazole (PROTONIX) 40 mg EC tablet Take 1 tablet (40 mg total) by mouth in the morning. 30 tablet 5 Active warfarin (COUMADIN) 1 mg tablet Take 1 tablet (1 mg total) by mouth in the evening. 60 tablet 5 Active starch, thickening, (INSTANT FOOD THICKENER) powder Take 1 Dose by mouth 4 (four) times a day with meals and nightly. Take as directed by the packaging. Add to all beverages to establish Level 3 moderate thickness (honey-like thickness). Do not use straws. Do this until re-evaluated by speech pathology. 850 g 5 Active metoprolol tartrate (LOPRESSOR) 25 mg tablet Take 1 tablet (25 mg total) by mouth every 12 (twelve) hours. 60 tablet 1 5 Active spironolactone (ALDACTONE) 25 mg tabletIndicatio ns:Chronic systolic heart failure (CMS-HCC) Take 0.5 tablets (12.5 mg total) by mouth in the morning. 30 tablet 6 5 Active amiodarone (PACERONE) 200 mg tablet Take 1 tablet (200 mg total) by mouth in the morning. 30 tablet 2 5 Active amiodarone (PACERONE) 200 mg tablet Take 2 tablets (400 mg total) by mouth 2 (two) times a day for 2 days, THEN 1 tablet (200 mg total) daily for 30 days. 38 tablet 5 02/10/20 25 Discontinu ed(Reorder ) Active Problems Problem Noted Date Diagnosed Date Ascending aortic aneurysm 01/03/2025 Chronic systolic heart failure 11/14/2024 Benign prostatic hyperplasia with urinary obstru ction 12/20/2020 History of malignant neoplasm of prostate 2020 Increased frequency of urination 12/20/2020 Left inguinal hernia 12/20/2020 Microscopic hematuria 12/20/2020 Nocturia 12/20/2020 Phimosis of penis 12/20/2020 Post-void dribbling 12/20/2020 Retention of urine 12/20/2020 Urinary tract infection 12/20/2020 Severe malnutrition 03/08/2020 Overview (03/08/2020): Patient meets criteria for - Severe Malnutrition in Context of Chronic Illness as evidenced by poor po intake x2 months, 6% wt loss/6 months, severe muscle/fat loss. 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) use of anticoagulants [Z79.01] (Primary Dx); H/O aortic valve replacement--1966 ball in cage 02/20/2025 [facility]phone [facility] [address] [place] [address] Randa Maldonado APRN-COOK NIGHT 02/20/2025 Travel 02/14/2025 10:45 AM EDT Follow Up Anticoagulation [facility] - Pharmacy Medication Management [address] [place] [address] penitentiary (current) use of anticoagulants [Z79.01] (Primary Dx); H/O aortic valve replacement--1966 ball in cage 02/14/2025 Travel 02/09/2025 Refill [facility] [address] [facility] [address] [place] [phone] Maritza Cage, CINDY Med Refill 02/09/2025 Travel 02/08/2025 Telephone [facility] Medication Management [address] [place] [address] Mary Kay Bro MA 02/02/2025 12:00 PM EDT Office Visit [facility] [address] [place], [place] [address] [address] Vivian Gee PA-C S/P aortic aneurysm repair (Primary Dx); Aneurysm of ascending aorta without rupture; H/O aortic valve replacement--1966 in cage; Chronic systolic heart failure ([facility]); Postoperative atrial fibrillation ([facility]) 02/02/2025 Travel 01/31/2025 Follow Up Anticoagulation [facility] - Pharm[facility] Medication Management [address] [place] [address] Medication Management, [facility] 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 and service 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 (current) use of anticoagulants [Z79.01] (Primary Dx); H/O aortic valve replacement--1966 in cage 01/25/2025 Follow Up Anticoagulation [facility] Medication Management [address] [place] [address] Medication Management, [facility] contact and service 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 (current) use of anticoagulants [Z79.01] (Primary Dx); H/O aortic valve replacement--1966 in cage 01/17/2025 Follow Up Anticoagulation [facility] - [facility] Medication Management [address] [place] [address] Murtaza Daniel, [facility] contact and service 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 (current) use of anticoagulants [Z79.01] (Primary Dx); H/O aortic valve replacement--1966 in cage 01/16/2025 11:00 AM EDT [facility] - [facility] [address] [place] [address] Randa Merritt, NEWS ANALYST-[facility] Visit for wound check (Primary Dx); S/P aortic aneurysm repair 01/16/2025 Travel 01/11/2025 Follow Up Anticoagulation [facility] Medication Management [address] [place] [address] Medication Management, [facility] contact and service 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 (current) use of anticoagulants [Z79.01] (Primary Dx); H/O aortic valve replacement--1966 in cage 01/11/2025 Lab Requisition [facility] - Lab [address] [place] [address] Christopher Sherman MD contact and service 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 (current) use of anticoagulants 01/10/2025 External Services Encounter [facility] - [facility] [address] [place] [address] Dawit Dietz MD 01/10/2025 Follow Up Anticoagulation [facility] Medication Management [address] [place] [address] Murtaza Daniel, [facility] contact and service 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 (current) use of anticoagulants [Z79.01] (Primary Dx); H/O aortic valve replacement--1966 ball in cage 01/10/2025 Lab Requisition [facility] - Lab [address] [place] [address] Christopher Sherman MD Coagulation defect, unspecified 01/10/2025 Telephone [facility] [address] [place] [address] Jesus Blas, PT Discharge 01/09/2025 Follow Up Anticoagulation [facility] Medication Management [address] [place] [address] Aleja Larsen, [facility] penitentiary (current) use of anticoagulants [Z79.01] (Primary Dx); H/O aortic valve replacement--1966 ball in cage 01/05/2025 Telephone [facility] [address] [place] [address] Anton Cerda, CINDY Hypotension 01/04/2025 11:08 AM EDT Anesthesia Event [facility] Surgery [address] [place] [phone] Law Mi MD New, Laura R, APRN-SALES ASSISTANT DISPLAYS 01/04/2025 10:19 AM EDT - 01/04/2025 12:34 PM EDT Surgery [facility] Surgery [address] [place] [phone] Dawit Dietz MD MEDESTINAL RE-EXPLORATION WITH HEMOSTATIC ENHANCEMENT 01/03/2025 7:30 AM EDT Anesthesia Event [facility] - Surgery [address] [place] [address]. [place] [address] Javi Deras MD 01/03/2025 7:30 AM EDT - 01/03/2025 1:30 PM EDT Surgery [facility] - Surgery [address] [place] [address]. [place] [address] Dawit Dietz MD REDO-STERNOTOMY/AOR TIC ANUERSYM REPAIR WITH 34 X 8mm GELWEAVE/ CORNELIUS 01/03/2025 7:25 AM EDT Ancillary Procedure [facility] Cardio[facility] [phone] 01/03/2025 5:14 AM EDT - 01/09/2025 2:59 PM EDT Hospital Encounter [facility] [address] [place] [address] Dawit Dietz MD S/P ascending aortic aneurysm repair (Primary Dx); Aneurysm of ascending aorta without rupture; Generalized weakness; H/O aortic valve replacement--1967 ball in cage Discharge Disposition: Home Health 01/03/2025 Travel 12/26/2024 10:08 AM EDT - 12/26/2024 11:59 PM EDT [facility] [address] [place] [address] Bilateral carotid bruits Discharge Disposition: Home 12/26/2024 9:30 AM EDT - 12/26/2024 10:07 AM EDT Hospital Encounter [facility] - Lab [address] [place] [address] Aneurysm of ascending aorta without rupture; Genitourinary symptoms; Glucose intolerance (impaired glucose tolerance); SOB (shortness of breath) Discharge Disposition: Home 12/26/2024 Orders Only [facility] - [facility] [address] [place] [address] Aniya Mckinney, RN Aneurysm of ascending aorta without rupture (Primary Dx) 12/23/2024 11:45 AM EDT Follow Up Anticoagulation [facility] - Pharmacy Medication Management [address] [place] [address] contact and 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 (current) use of anticoagulants [Z79.01] (Primary Dx); H/O aortic valve replacement--1966 ball in cage 12/23/2024 Travel 12/16/2024 11:00 AM EDT Follow Up Anticoagulation [facility] - Pharmacy Medication Management [address] [place] [address] penitentiary (current) use of anticoagulants [Z79.01] (Primary Dx); H/O aortic valve replacement--1966 ball in cage 12/16/2024 Travel 12/12/2024 11:30 AM EDT Office Visit [facility] [address] [place] [address] Dawit Dietz MD Aneurysm of ascending aorta without rupture 12/12/2024 Orders Only [facility] [address] [place] [address] Belen Barry RN Bilateral carotid bruits (Primary Dx) 12/09/2024 Documentation [facility] [address] [place] [address] Torri Bain, CINDY 11/29/2024 Orders Only [facility] [address] [place] [address] Estella Guzman PA-C Aneurysm of ascending aorta without rupture ([facility]) (Primary Dx) from Last 3 Months Immunizations Immunization Administration Dates Next Due Covid-19,mrna, Lnp-s, Pf, 50 mcg/0.5ml 12+ Seasonal 07/07/2024 Influenza High Dose Preservative Free IM 016,06/15/2015 Influenza Vaccine, Quadrivalent, Adjuvanted 06/08,06/19/2022,05/18/2020 Influenza, High-dose, Quadrivalent 07/16/2021 Influenza, Injectable, quadrivalent (PF) 020,06/11/2017 Influenza, Trivalent, Adjuvanted 06/30/2024,05/09,06/09/2018 Pneumococcal Conjugate 13-Valent 06/09/2018,10/08 Pneumococcal Polysaccharide 08/15/2019 RSV, bivalent, protein subun it RSVpreF, diluent reconstituted, 0.5 mL, PF 06/30/2024 Family History Medical History Relation Name Comments Cancer Brother Cancer Mother Anesthesia problems Neg Hx Relation Name Status Comments Brother Other prostate cancer Mother Social History Tobacco Use Types Packs/Day Years Used Date Smoking Tobacco: Former Cigarettes 2 2 0 12/07/1977 - 12/08/1979 Smokeless Tobacco: Never Tobacco Cessation:Counseling Given: Not Answered Alcohol Use Standard Drinks/Week Comments Not Currently 0 (1 standard drink = 0.6 oz pur e alcohol) [facility] Utilities Answer Date Recorded In the past 12 months has [email or web address], gas, oil, or water [employer] threatened to shut off services in your [...] on file Sexual Orientation Not on file Last Filed Vital Signs Vital Sign Reading Time Taken Comments Blood Pressure 136/62 02/02/2025 11:34 AM EDT Pulse 76 02/02/2025 11:34 AM EDT Temperature 36.2 C (97.1 F) 01/16/2025 11:17 AM EDT Respiratory Rate 20 01/16/2025 11:17 AM EDT Oxygen Saturation 98% 02/02/2025 11:34 AM EDT Inhaled Oxygen Concentration - - Weight 53.1 kg (117 lb) 02/02/2025 11:34 AM EDT Height 177.8 cm (5' 10 ) 02/02/2025 11:34 AM EDT Body Mass Index 16.79 02/02/2025 11:34 AM EDT Plan of Treatment Upcoming Encounters Date Type Department Care Team (Late st Contact Info) Description 03/02/2025 12:30 PM EDT Follow Up Anticoagulation [facility] - Pharmacy Medication Management [address] [place] [address] 03/02/2025 1:00 PM EDT Office Visit [facility] [address] [place] [phone] Casper Swain MD [address] [place] [address] Robert Jade MD [address] [place] [address] 03/14/2025 1:00 PM EDT Ancillary Procedure [facility] [address] [place] [phone] 05/29/2025 11:15 AM EDT Office Visit [facility] [address] [place] [address] Tristan Watson MD [address] [place] [address] Health Maintenance Due Date Last Done Comments Depression Screening 1957 DTaP,Tdap and Td Vaccines (1 - Tdap) 1964 Zoster (Shingles) Vaccine (1 of 2) 1964 Abdominal Aortic Aneurysm (A AA) Screen 2010 Fall Risk Screening 2010 COVID-19 Vaccine (8 - Pfizer risk season) 2025 07/07/2024, 07/01/2023, 04/25/2022, Additional history exists Influenza Vaccine 05/08/2025 06/30/2024, , 06/19/2022, Additional history exists Tobacco Screening 02/02/2026 02/02/2025 Goals Goal Patient Goal Type Associated Problems Recent Progress Patient-Stated? Author <enter goal here> General Yes Viola Gamble, CINDY Note: Evaluation of progress towards goal: patient progressing toward safe discharge home. Medical Devices Implanted Type Area Director Toxicology Device Identifier Shelf Expiration Date Model / Serial / Lot Gelweave Vascutek Terumo Implanted:Qty: 1 on 01/03/2025 by Dawit Dietz MD at [facility] Graft N/A: Heart [employer] C 03/06/2027 [id number] / [id number] / [id number] Preshape Goldstein 2x4 - [id number] - [id number] Implanted:Qty: 1 on 01/07/2021 by Marycarmen Morrison MD at 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 (current) use of anticoagulants [Z79.01] H/O aortic valve replacement--1966 ball in cage BASIC METABOLIC PANEL Routine 02/09/2025 11:21 AM EDT Chronic systolic heart failure (CMS-HCC) POCT EKG Routine 02/02/2025 Chronic systolic heart failure ([facility]) PROTIME & INR Routine 01/31/2025 PROTIME & INR Routine 01/24/2025 LAB RESULTS REPORT (SCANNED INTO EHR) 01/17/2025 9:05 AM EDT PROTIME & INR Routine 01/16/2025 12:23 PM EDT S/P ascending aortic aneurysm repair MAGNESIUM Routine 01/16/2025 12:23 PM EDT S/P ascending aortic aneurysm repair BASIC METABOLIC PANEL Routine 01/16/2025 12:23 PM EDT S/P ascending aortic aneurysm repair CBC (NO DIFF) Routine 01/16/2025 12:23 PM EDT S/P ascending aortic aneurysm repair PROTIME & INR Routine 01/11/2025 10:55 AM EDT contact and service 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 (current) use of anticoagulants PROTIME & INR Routine 01/10/2025 12:25 PM EDT Coagulation defect, unspecified FL SWALLOW MOTILITY FUNCTION Routine 01/09/2025 8:42 AM EDT MAGNESIUM Add-On 01/09/2025 4:36 AM EDT PROTIME & INR Routine 01/09/2025 4:36 AM EDT CBC (NO DIFF) Routine 01/09/2025 4:36 AM EDT BASIC METABOLIC PANEL Routine 01/09/2025 4:36 AM EDT BEDSIDE GLUCOSE Routine 01/08/2025 11:17 PM EDT BEDSIDE GLUCOSE Routine 01/08/2025 8:03 PM EDT POTASSIUM Routine 01/08/2025 5:03 PM EDT BEDSIDE GLUCOSE Routine 01/08/2025 4:05 PM EDT BEDSIDE GLUCOSE Routine 01/08/2025 12:04 PM EDT POTASSIUM Routine 01/08/2025 11:04 AM EDT BEDSIDE GLUCOSE Routine 01/08/2025 7:57 AM EDT PROTIME & INR Routine 01/08/2025 6:02 AM EDT CBC (NO DIFF) Routine 01/08/2025 4:56 AM EDT BASIC METABOLIC PANEL Routine 01/08/2025 4:56 AM EDT HEPARIN ANTI XA, UNFRACTIONATED Routine 01/08/2025 12:13 AM EDT PROTIME & INR Routine 01/08/2025 12:06 AM EDT APTT Routine 01/08/2025 12:06 AM EDT BEDSIDE GLUCOSE Routine 01/07/2025 9:14 PM EDT HEPARIN ANTI XA, UNFRACTIONATED Routine 01/07/2025 5:25 PM EDT BEDSIDE GLUCOSE Routine 01/07/2025 4:26 PM EDT HEPARIN ANTI XA, UNFRACTIONATED Add-On 01/07/2025 3:42 PM EDT PROTIME & INR Routine 01/07/2025 3:42 PM EDT BEDSIDE GLUCOSE Routine 01/07/2025 12:30 PM EDT BEDSIDE GLUCOSE Routine 01/07/2025 8:04 AM EDT XR CHEST 1 VW Routine 01/07/2025 4:18 AM EDT PROTIME & INR Routine 01/07/2025 3:23 AM EDT CBC (NO DIFF) Routine 01/07/2025 3:23 AM EDT BASIC METABOLIC PANEL Routine 01/07/2025 3:23 AM EDT BEDSIDE GLUCOSE Routine 01/06/2025 9:47 PM EDT BEDSIDE GLUCOSE Routine 01/06/2025 8:41 PM EDT BEDSIDE GLUCOSE Routine 01/06/2025 5:30 PM EDT PROTIME & INR Routine 01/06/2025 2:18 PM EDT BEDSIDE GLUCOSE Routine 01/06/2025 12:08 PM EDT POTASSIUM Routine 01/06/2025 11:46 AM EDT FL SWALLOW MOTILITY FUNCTION Routine 01/06/2025 10:23 AM EDT BASIC METABOLIC PANEL Routine 01/06/2025 5:18 AM EDT CBC (NO DIFF) Routine 01/06/2025 5:18 AM EDT PROTIME & INR Routine 01/06/2025 5:18 AM EDT XR CHEST 1 VW Routine 01/06/2025 4:43 AM EDT TSH Add-On 01/05/2025 10:23 PM EDT ALT STAT 01/05/2025 10:23 PM EDT AST STAT 01/05/2025 10:23 PM EDT MAGNESIUM STAT 01/05/2025 10:23 PM EDT POTASSIUM STAT 01/05/2025 10:23 PM EDT BEDSIDE GLUCOSE Routine 01/05/2025 9:05 PM EDT BEDSIDE GLUCOSE Routine 01/05/2025 5:57 PM EDT PROTIME & INR Routine 01/05/2025 3:08 PM EDT POTASSIUM Routine 01/05/2025 11:35 AM EDT IONIZED MAGNESIUM Routine 01/05/2025 11:35 AM EDT IONIZED CALCIUM Routine 01/05/2025 11:35 AM EDT BEDSIDE GLUCOSE Routine 01/05/2025 11:30 AM EDT XR CHEST 1 VW Routine 01/05/2025 6:01 AM EDT CBC (NO DIFF) Routine 01/05/2025 2:01 AM EDT IONIZED CALCIUM Routine 01/05/2025 2:01 AM EDT IONIZED MAGNESIUM Routine 01/05/2025 2:01 AM EDT PHOSPHORUS Routine 01/05/2025 2:01 AM EDT BASIC METABOLIC PANEL Routine 01/05/2025 2:01 AM EDT BEDSIDE GLUCOSE Routine 01/04/2025 9:15 PM EDT BEDSIDE GLUCOSE Routine 01/04/2025 5:38 PM EDT BASIC METABOLIC PANEL Routine 01/04/2025 1:16 PM EDT FIBRINOGEN Routine 01/04/2025 1:16 PM EDT APTT Routine 01/04/2025 1:16 PM EDT PROTIME & INR STAT 01/04/2025 1:16 PM EDT CBC WITH AUTO DIFFERENTIAL STAT 01/04/2025 1:16 PM EDT XR CHEST 1 VW STAT 01/04/2025 1:13 PM EDT DE AN ELECTIVE ENDOTRACHEAL AIRWAY Routine 01/04/2025 11:27 AM EDT POCT ABG RAPID K GLU ICA HH Routine 01/04/2025 11:24 AM EDT EXPLORATION MEDIASTINAL 01/04/2025 11:08 AM EDT BRING BACK HEMOGLOBIN AND HEMATOCRIT, BLOOD Routine 01/04/2025 8:10 AM EDT TEG BILL ONLY Routine 01/04/2025 7:52 AM EDT XR CHEST 1 VW Routine 01/04/2025 5:06 AM EDT BEDSIDE GLUCOSE Routine 01/04/2025 4:50 AM EDT ECG 12-LEAD Timed 01/04/2025 4:09 AM EDT PLATELETS SETUP Routine 01/04/2025 3:00 AM EDT FRESH FROZEN PLASMA SETUP Routine 01/04/2025 3:00 AM EDT PROTIME & INR Routine 01/04/2025 2:22 AM EDT CBC (NO DIFF) Routine 01/04/2025 2:22 AM EDT IONIZED CALCIUM Routine 01/04/2025 2:22 AM EDT IONIZED MAGNESIUM Routine 01/04/2025 2:22 AM EDT PHOSPHORUS Routine 01/04/2025 2:22 AM EDT BASIC METABOLIC PANEL Routine 01/04/2025 2:22 AM EDT BRONCHOPULMONARY HYGIENE Routine 01/04/2025 2:11 AM EDT BRONCHOPULMONARY HYGIENE Routine 01/04/2025 2:11 AM EDT BRONCHOPULMONARY HYGIENE Routine 01/04/2025 2:11 AM EDT TRANSFUSE RED BLOOD CELLS Routine 01/04/2025 1:22 AM EDT BEDSIDE GLUCOSE Routine 01/04/2025 12:48 AM EDT EXTRA TUBES LAVENDER TOP Routine 01/03/2025 10:42 PM EDT HEMOGLOBIN Add-On 01/03/2025 10:42 PM EDT EXTRA TUBES Routine 01/03/2025 10:42 PM EDT BEDSIDE GLUCOSE Routine 01/03/2025 10:05 PM EDT CBC WITH AUTO DIFFERENTIAL STAT 01/03/2025 10:03 PM EDT PLATELETS SETUP Routine 01/03/2025 9:00 PM EDT FRESH FROZEN PLASMA SETUP STAT 01/03/2025 9:00 PM EDT TRANSFUSE RED BLOOD CELLS Routine 01/03/2025 8:52 PM EDT BEDSIDE GLUCOSE Routine 01/03/2025 8:11 PM EDT BEDSIDE GLUCOSE Routine 01/03/2025 7:27 PM EDT HEMOGLOBIN AND HEMATOCRIT, BLOOD Routine 01/03/2025 7:25 PM EDT PLATELET COUNT Routine 01/03/2025 7:25 PM EDT BEDSIDE GLUCOSE Routine 01/03/2025 6:14 PM EDT POTASSIUM Routine 01/03/2025 6:12 PM EDT BEDSIDE GLUCOSE Routine 01/03/2025 4:54 PM EDT PROTIME & INR STAT 01/03/2025 4:49 PM EDT TEG BILL ONLY Routine 01/03/2025 4:43 PM EDT BEDSIDE GLUCOSE Routine 01/03/2025 4:09 PM EDT RESP ARTERIAL LINE SETUP Routine 01/03/2025 4:00 PM EDT TRANSFUSE FRESH FROZEN PLASMA Routine 01/03/2025 3:50 PM EDT TRANSFUSE PLATELETS Routine 01/03/2025 3:48 PM EDT BEDSIDE GLUCOSE Routine 01/03/2025 3:21 PM EDT BLOOD GAS, ARTERIAL Routine 01/03/2025 2:33 PM EDT TEG BILL ONLY Routine 01/03/2025 2:22 PM EDT RESP ARTERIAL LINE SETUP Routine 01/03/2025 2:07 PM EDT RESP ARTERIAL LINE SETUP Routine 01/03/2025 2:07 PM EDT RESP ARTERIAL LINE SETUP Routine 01/03/2025 2:07 PM EDT RESP ARTERIAL LINE SETUP Routine 01/03/2025 2:07 PM EDT VENTILATION Routine 01/03/2025 2:07 PM EDT VENTILATION Routine 01/03/2025 2:07 PM EDT VENTILATION Routine 01/03/2025 2:07 PM EDT ECG 12-LEAD STAT 01/03/2025 2:02 PM EDT XR CHEST 1 VW STAT 01/03/2025 2:00 PM EDT APTT STAT 01/03/2025 2:00 PM EDT PROTIME & INR STAT 01/03/2025 2:00 PM EDT HEMOGLOBIN AND HEMATOCRIT, BLOOD STAT 01/03/2025 2:00 PM EDT PLATELET COUNT STAT 01/03/2025 2:00 PM EDT IONIZED CALCIUM STAT 01/03/2025 2:00 PM EDT IONIZED MAGNESIUM STAT 01/03/2025 2:00 PM EDT POTASSIUM STAT 01/03/2025 2:00 PM EDT CREATININE, SERUM STAT 01/03/2025 2:00 PM EDT BUN STAT 01/03/2025 2:00 PM EDT BEDSIDE GLUCOSE Routine 01/03/2025 1:58 PM EDT WEANING PARAMETERS Routine 01/03/2025 1:52 PM EDT VENTILATION Routine 01/03/2025 1:52 PM EDT TRANSFUSE RED BLOOD CELLS Routine 01/03/2025 1:33 PM EDT POCT ABG RAPID K GLU ICA HH Routine 01/03/2025 1:28 PM EDT TEG BILL ONLY Routine 01/03/2025 1:09 PM EDT TRANSFUSE PLATELETS Routine 01/03/2025 12:58 PM EDT TRANSFUSE PLATELETS Routine 01/03/2025 12:53 PM EDT ANESTHESIA CORNELIUS Routine 01/03/2025 12:51 PM EDT TRANSFUSE FRESH FROZEN PLASMA Routine 01/03/2025 12:48 PM EDT TEG BILL ONLY Routine 01/03/2025 12:43 PM EDT TRANSFUSE FRESH FROZEN PLASMA Routine 01/03/2025 12:42 PM EDT POCT ABG RAPID K GLU ICA HH Routine 01/03/2025 12:41 PM EDT POCT ABG RAPID K GLU HH Routine 01/03/2025 12:14 PM EDT POCT ABG RAPID K GLU HH Routine 01/03/2025 11:45 AM EDT POCT ABG RAPID K GLU HH Routine 01/03/2025 11:15 AM EDT SURGICAL PATHOLOGY Routine 01/03/2025 10:41 AM EDT POCT ABG RAPID K GLU HH Routine 01/03/2025 10:19 AM EDT DE ANES ART LINE Routine 01/03/2025 8:52 AM EDT DE INSERT/PLACE FLOW DIRECT CATH Routine 01/03/2025 8:50 AM EDT POCT IMAGN Routine 01/03/2025 8:00 AM EDT POCT ABG RAPID K GLU ICA HH Routine 01/03/2025 8:00 AM EDT TEG BILL ONLY Routine 01/03/2025 7:58 AM EDT DE AN ELECTIVE ENDOTRACHEAL AIRWAY Routine 01/03/2025 7:39 AM EDT REPAIR AORTIC ANEURYSM ASCENDING AORTA WITH REPLACEMENT OF AORTIC ROOT 01/03/2025 7:28 AM EDT AORTIC ANEURYSM Case Notes 330 WORKING- HARSHA PULLED CARD ACCORDING TO OFFICE REQ ECHO CORNELIUS INTRA OP ONLY Routine 7:23 AM EDT PORTABLE PROTIME Routine 01/03/2025 6:24 AM EDT VASC CAROTID DUPLEX BILATERAL STAT 12/26/2024 10:41 AM EDT Bilateral carotid bruits CBC (NO DIFF) Routine 12/26/2024 9:40 AM EDT Aneurysm of ascending aorta without rupture PROTIME & INR Routine 12/26/2024 9:40 AM EDT Aneurysm of ascending aorta without rupture SOB (shortness of breath) APTT Routine 12/26/2024 9:40 AM EDT Aneurysm of ascending aorta without rupture SOB (shortness of breath) COMPREHENSIVE METABOLIC PANEL Routine 12/26/2024 9:40 AM EDT Aneurysm of ascending aorta without rupture HEMOGLOBIN A1C Routine 12/26/2024 9:40 AM EDT Aneurysm of ascending aorta without rupture Glucose intolerance (impaired glucose tolerance) CROSSMATCH RBC Routine 12/26/2024 9:30 AM EDT CROSSMATCH RBC Routine 12/26/2024 9:30 AM EDT CROSSMATCH RBC Routine 12/26/2024 9:30 AM EDT CROSSMATCH RBC Routine 12/26/2024 9:30 AM EDT CROSSMATCH RBC Routine 12/26/2024 9:30 AM EDT CROSSMATCH RBC Routine 12/26/2024 9:30 AM EDT CROSSMATCH RBC Routine 12/26/2024 9:30 AM EDT CROSSMATCH RBC Routine 12/26/2024 9:30 AM EDT CROSSMATCH RBC Routine 12/26/2024 9:30 AM EDT CROSSMATCH RBC Routine 12/26/2024 9:30 AM EDT CROSSMATCH RBC Routine 12/26/2024 9:30 AM EDT CROSSMATCH RBC Routine 12/26/2024 9:30 AM EDT CROSSMATCH RBC Routine 12/26/2024 9:30 AM EDT CROSSMATCH RBC Routine 12/26/2024 9:30 AM EDT CROSSMATCH RBC Routine 12/26/2024 9:30 AM EDT CROSSMATCH RBC Routine 12/26/2024 9:30 AM EDT TYPE AND SCREEN Routine 12/26/2024 9:30 AM EDT Aneurysm of ascending aorta without rupture POCT EKG Routine 12/26/2024 Aneurysm of ascending aorta without rupture POCT PROTIME / INR Routine 12/23/2024 11:39 AM 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 INR 1.4(A) 0.8 - 1.2 MANUALLY TRANSCRIBED RESULTS 02/20/2025 11:1 3 AM EDT [facility] Med[facility] POINT O F CARE TEST ORDERABLES Final Result MANUALLY TRANSCRIBED RESULTS * (ABNORMAL) Basic Metabolic Panel (02/09/2025 11:21 AM EDT) Only the most recent of9 resultswithin the time period is included. SODIUM 138 134 - 146 mmol/L 02/09/2025 2:17 PM EDT [facility] POTASSIUM 4.1 3.5 - 5.0 mmol/L 02/09/2025 2:17 PM EDT [facility] CHLORIDE 98 98 - 109 mmol/L 02/09/2025 2:17 PM EDT [facility] CARBON DIOXIDE 32 22 - 32 mmol/L 02/09/2025 2:17 PM EDT [facility] ANION GAP 8 5 - 15 mmol/L 02/09/2025 2:17 PM EDT [facility] BLOOD UREA NITROGEN 17 5 - 27 mg/dL 02/09/2025 2:17 PM EDT [facility] CREATININE 1.10 0.60 - 1.30 mg/dL 02/09/2025 2:17 PM EDT [facility] Comment:METHOD TRACEABLE TO IDMS STANDARD GLUCOSE 114(H) 65 - 99 mg/dL 02/09/2025 2:17 PM EDT [facility] CALCIUM 9.5 8.5 - 10.5 mg/dL 02/09/2025 2:17 PM EDT [facility] EGFR Non-Race Dependent 68 >=60 ml/min/1.7 3sq.m 02/09/2025 2:17 PM EDT [facility] Comment: Reported eGFR is based on the CKD-EPI 2020 equation that does not use a race coefficient. Blood Venous blood / Unknown Venipuncture / Unknown 02/09/2025 11:21 AM EDT 02/09/2025 11:21 AM EDT Vivian Bah Gerard TAMEZ LAB BLOOD ORDERABLES Final Result Performing Organization Address City/[facility]/ZIP Co de Phone Number [facility] [address] [place] [address], [place] [phone] * POCT EKG (02/02/2025) Only the most recent of2 resultswithin the time period is included. Vivian Bah Gerard TAMEZ ECG ORDERABLES Final Resu lt MANUALLY TRANSCRIBED RESULTS * (ABNORMAL) Protime & INR (01/31/2025) Only the most recent of18 resultswithin the time period is included. INR 2.3(A) 0.9 - 1.1 Blood Venous blood / Unknown [facility] LAB BLO OD ORDERABLES Final Result * Lab Results Report (Scanned Into EHR) (01/17/2025 9:05 AM EDT) Narrative 01/17/2025 9:05 AM EDT Ordered by an unspecified provider. Not In System Ref Prov LAB BLOOD ORDERABLES Viji l Result * (ABNORMAL) CBC without diff (01/16/2025 12:23 PM EDT) Only the most recent of8 resultswithin the time period is included. WBC 12.2(H) 4 - 11 x10E9/L 01/16/2025 3:36 PM EDT [facility] RBC Count 2.89(L) 4.1 - 5.7 X10E12/L 01/16/2025 3:36 PM EDT [facility] Hemoglobin 9.1(L) 13 - 17 g/dL 01/16/2025 3:36 PM EDT [facility] Hematocrit 27.8(L) 39 - 50 % 01/16/2025 3:36 PM EDT [facility] MCV 96 80 - 100 fL 01/16/2025 3:36 PM EDT [facility] MCH 31.6 27 - 34 pg 01/16/2025 3:36 PM EDT [facility] MCHC 32.9 32 - 36 g/dL 01/16/2025 3:36 PM EDT [facility] RDW 16.3(H) 11.5 - 15 % 01/16/2025 3:36 PM EDT [facility] Platelet Count 266 150 - 450 X10E9/L 01/16/2025 3:36 PM EDT [facility] MPV 8.9 7 - 12 fL 01/16/2025 3:36 PM EDT [facility] Blood Venous blood / Unknown Venipuncture / Unknown 01/16/2025 12:23 PM EDT 01/16/2025 12:24 PM EDT Polo Gamboa APRN-COOK NIGHT LAB BLOOD ORDERABLES Final Result [facility] [address] [place] [address], * Magnesium (01/16/2025 12:23 PM EDT) Only the most recent of3 resultswithin the time period is included. MAGNESIUM 1.9 1.8 - 2.6 mg/dL 01/16/2025 2:53 PM EDT [facility] Blood Venous blood / Unknown Venipuncture / Unknown 01/16/2025 12:23 PM EDT 01/16/2025 12:24 PM EDT Polo Gamboa NEWS ANALYST-COOK NIGHT LAB BLOOD ORDERABLES Final Result [facility] [address] [place] [address], * Fluoroscopy swallow motility function (01/09/2025 8:42 AM EDT) Only the most recent of2 resultswithin the time period is included. Anatomical Region Laterality Modality Chest, Abdomen, Body Radio Fluor oscopy 01/09/2025 8:48 AM EDT Narrative 01/09/2025 8:57 AM EDT FL SWALLOW MOTILITY FUNCTION HISTORY: Oropharyngeal dysphagia COMPARISON: 01/06/2025 TECHNIQUE: Video fluoroscopic swallow study was performed in conjunction with speech pathologist. Barium contrast materials of varying consistencies administered. FINDINGS: Fluoroscopy time: 0.6 minutes Reference air kerma: 1.0 mGy Runs: 12 Thin: Aspiration. Mildly thick: Aspiration. Moderately thick: No penetration or aspiration. Applesauce: No penetration or aspiration. Fruit: Aspiration of the fruit juice. IMPRESSION: 1. Abnormal swallow study as detailed. 2. Please correlate with dedicated speech pathology report for additional details and recommendations. Approved by Christiana Love MD on 01/09/2025 8:48 AM Casper Salvador MD have personally reviewed the image(s) and agree with and/or edited the report Finalized by Casper Le MD on 01/09/2025 8:57 AM Procedure Note Casper Le MD - 01/09/2025 FL SWALLOW MOTILITY FUNCTION HISTORY: Oropharyngeal dysphagia COMPARISON: 01/06/2025 TECHNIQUE: Video fluoroscopic swallow study was performed in conjunctionwith speech pathologist. Barium contrast materials of varyingconsistencies administered. FINDINGS: Fluoroscopy time: 0.6 minutes Reference air kerma: 1.0 mGy Runs: 12 Thin: Aspiration. Mildly thick: Aspiration. Moderately thick: No penetration or aspiration. Applesauce: No penetration or aspiration. Fruit: Aspiration of the fruit juice. IMPRESSION: 1. Abnormal swallow study as detailed. 2. Please correlate with dedicated speech pathology report for additionaldetails and recommendations. Approved by Christiana Love MD on 01/09/2025 8:48 AM Casper Salvador MD have personally reviewed the image(s) and agree withand/or edited the report Finalized by Casper Le MD on 01/09/2025 8:57 AM Polo Gamboa NEWS ANALYST-COOK NIGHT IMG FLUOROSCOPY KAREEM MARTÍNEZ Final Result * (ABNORMAL) Bedside Glucose *Place/Obtain serum glucose if >500 per glucometer. (01/08/2025 11:17PM EDT) Only the most recent of28 resultswithin the time period is included. [facility] Bedside Glucose (POC) 140(H) 65 - 99 mg/dL 01/09/2025 1:[address] [facility] arterial/capilla ry 01/08/2025 11:17 PM EDT 01/09/2025 1:18 AM EDT Dawit Dietz MD POINT OF CARE TEST KAREEM MARTÍNEZ Final Result [facility] [address] [place] [address], [place] * Potassium (01/08/2025 5:03 PM EDT) Only the most recent of7 resultswithin the time period is included. [facility] POTASSIUM 4.1 3.5 - 5.0 mmol/L 01/08/2025 5:41 PM EDT [facility] Blood Venous blood / Unknown Line / Unknown 01/08/2025 5:03 PM EDT 01/08/2025 5:15 PM EDT Harley CENTENO-C LAB BLOOD ORDERABLES Fin al Result [facility] [address] [place] [address], [place] [phone] * (ABNORMAL) Anti XA unfractionated heparin (01/08/2025 12:13 AM EDT) Only the most recent of3 resultswithin the time period is included. [facility] ANTI XA UFH 0.07(L) 0.30 - 0.70 IU/mL 01/08/2025 1:54 AM EDT [facility] Comment: Optimal time for testing is 6 hrs post dosage This test is specific for monitoring patients on UFH, and is not recommended for use with other Anti-Xa medications. Blood Venous blood / Unknown 01/08/2025 12:13 AM EDT 01/08/2025 12:28 AM EDT us Dawit Dietz MD LAB BLOOD ORDERABLES Fi nal Result [facility] [address] [place] [address], [place] [phone] * (ABNORMAL) APTT (01/08/2025 12:06 AM EDT) Only the most recent of4 resultswithin the time period is included. [facility] APTT 38(H) 26 - 37 sec 01/08/2025 5:49 AM EDT [facility] Blood Venous blood / Unknown 01/08/2025 12:06 AM EDT 01/08/2025 5:11 AM EDT us Polo Gamboa NEWS ANALYST-COOK NIGHT LAB BLOOD ORDERABLES Final Result [facility] [address] [place] [address], [place] [phone] * X-ray chest 1 view (01/07/2025 4:18 AM EDT) Only the most recent of6 resultswithin the time period is included. Anatomical Region Laterality Modality Body, Chest N/A Computed Radiogr aphy 01/07/2025 4:25 AM EDT Narrative 01/07/2025 4:26 AM EDT CHEST 1 VIEW HISTORY: Chest tube discontinuation COMPARISON: 01/06/2025 IMPRESSION: * Interval removal of right chest tube and mediastinal drains. Stable right IJ central venous catheter. * Elevated right hemidiaphragm with bibasilar atelectasis and small pleural effusions, unchanged. * No pneumothorax. Finalized by George Gregorio MD on 01/07/2025 4:26 AM Procedure Note George Gregorio MD - 01/07/2025 CHEST 1 VIEW HISTORY: Chest tube discontinuation COMPARISON: 01/06/2025 IMPRESSION: * Interval removal of right chest tube and mediastinal drains. Stableright IJ central venous catheter. * Elevated right hemidiaphragm with bibasilar atelectasis and smallpleural effusions, unchanged. * No pneumothorax. Finalized by George Gregorio MD on 01/07/2025 4:26 AM Polo Gamboa NEWS ANALYST-COOK NIGHT IMG DIAGNOSTIC IMAGI NG ORDERABLES Final Result * ALT (01/05/2025 10:23 PM EDT) ALT 5 <=40 U/L 01/05/2025 11:01 PM EDT [facility] Blood Venous blood / Unknown 01/05/2025 10:23 PM EDT 01/05/2025 10:30 PM EDT aDwit Dietz MD LAB BLOOD ORDERABLES Fi nal Result [facility] [address] [place] [address], [place] [phone] * AST (01/05/2025 10:23 PM EDT) AST 16 <=41 U/L 01/05/2025 11:01 PM EDT [facility] Blood Venous blood / Unknown 01/05/2025 10:23 PM EDT 01/05/2025 10:30 PM EDT us Dawit Dietz MD LAB BLOOD ORDERABLES Fi nal Result [facility] [address] [place] [address], * TSH (01/05/2025 10:23 PM EDT) TSH 2.31 0.49 - 4.67 uIU/mL 01/06/2025 12:25 AM EDT [facility] Blood Venous blood / Unknown 01/05/2025 10:23 PM EDT 01/05/2025 10:30 PM EDT us Dawit Dietz MD LAB BLOOD ORDERABLES Fi nal Result [facility] [address] [place] [address], * Ionized magnesium (01/05/2025 11:35 AM EDT) Only the most recent of4 resultswithin the time period is included. IONIZED MAGNESIUM 0.64 0.45 - 0.74 mmol/L 01/05/2025 11:51 AM EDT [facility] Blood Venous blood / Unknown 01/05/2025 11:35 AM EDT 01/05/2025 11:45 AM EDT Dawit Dietz MD LAB BLOOD ORDERABLES Fi nal Result [facility] [address] [place] [address], * Ionized calcium (01/05/2025 11:35 AM EDT) Only the most recent of4 resultswithin the time period is included. IONIZED CALCIUM - ICAN 4.6 4.5 - 5.3 mg/dL 01/05/2025 11:51 AM EDT [facility] Blood Venous blood / Unknown 01/05/2025 11:35 AM EDT 01/05/2025 11:45 AM EDT Dawit Dietz MD LAB BLOOD ORDERABLES Fi nal Result Performing Organization Address City/[facility]/ZIP Co de Phone Number [facility] [address] [place] [address], * Phosphorus (01/05/2025 2:01 AM EDT) Only the most recent of2 resultswithin the time period is included. PHOSPHORUS 3.8 2.4 - 4.9 mg/dL 01/05/2025 2:41 AM EDT [facility] Blood Venous blood / Unknown 01/05/2025 2:01 AM EDT 01/05/2025 2:15 AM EDT Dawit Dietz MD LAB BLOOD ORDERABLES Fi nal Result Performing Organization Address [facility] Co de Phone Number [facility] [address] [place] [address], * (ABNORMAL) CBC auto differential (01/04/2025 1:16 PM EDT) Only the most recent of2 resultswithin the time period is included. WBC 17.7(H) 4 - 11 x10E9/L 01/04/2025 4:35 PM EDT [facility] RBC Count 3.34(L) 4.1 - 5.7 X10E12/L 01/04/2025 4:35 PM EDT [facility] Hemoglobin 10.4(L) 13 - 17 g/dL 01/04/2025 4:35 PM EDT [facility] Hematocrit 30.2(L) 39 - 50 % 01/04/2025 4:35 PM EDT [facility] MCV 90 80 - 100 fL 01/04/2025 4:35 PM EDT [facility] MCH 31.1 27 - 34 pg 01/04/2025 4:35 PM EDT [facility] MCHC 34.4 32 - 36 g/dL 01/04/2025 4:35 PM EDT [facility] RDW 15.6(H) 11.5 - 15 % 01/04/2025 4:35 PM EDT [facility] Platelet Count 105(L) 150 - 450 X10E9/L 01/04/2025 4:35 PM EDT [facility] MPV 9.0 7 - 12 fL 01/04/2025 4:35 PM EDT [facility] Neutrophils Relatives 87 % 01/04/2025 4:35 PM EDT [facility] Comment:This is an appended report. These results have been appended to a previously preliminary verified report. Lymphocytes Relative 3 % 01/04/2025 4:35 PM EDT [facility] Comment:This is an appended report. These results have been appended to a previously preliminary verified report. Monocytes Relative 10 % 01/04/2025 4:35 PM EDT [facility] Comment:This is an appended report. These results have been appended to a previously preliminary verified report. Neutrophils Absolute (M) 15.4 10*3/uL 01/04/2025 4:35 PM EDT [facility] Comment:This is an appended report. These results have been appended to a previously preliminary verified report. Lymphocytes Absolute 0.5 10*3/uL 01/04/2025 4:35 PM EDT [facility] Comment:This is an appended report. These results have been appended to a previously preliminary verified report. Monocytes Absolute 1.8 10*3/uL 01/04/2025 4:35 PM T [facility] Comment:This is an appended report. These results have been appended to a previously preliminary verified report. Differential Type MANUAL DIFFERENTIAL 01/04/2025 4:35 PM T [facility] Comment:This is an appended report. These results have been appended to a previously preliminary verified report. Blood 01/04/2025 1:16 PM EDT 01/04/2025 1:26 PM EDT Nancy Mario NEWS ANALYST-COOK NIGHT LAB BLOOD ORDERABLES Final Result [facility] [address] [place] [address], [place] [phone] * Fibrinogen (01/04/2025 1:16 PM EDT) FIBRINOGEN 244 190 - 480 mg/dL 01/04/2025 1:45 PM EDT [facility] Blood Venous blood / Unknown 01/04/2025 1:16 PM EDT 01/04/2025 1:25 PM EDT Nancy Mario NEWS ANALYST-COOK NIGHT LAB BLOOD ORDERABLES Final Result Performing Organization Address City/[facility] Co de Phone Number [facility] [address] [place] [address], [place] [phone] * DE AN ELECTIVE ENDOTRACHEAL AIRWAY (01/04/2025 11:27 AM EDT) Gurvinder Perera APRN-CRNA - 01/04/2025 11:27 AM EDT PHILIP Julien 01/04/2025 11:27 AM Airway Patient location during procedure: OR Urgency: Elective Date/Time: 01/04/2025 11:27 AM Airway not difficult IV In Situ: Peripheral General Information and Staff Service Provider: Law Mi MD SALES ASSISTANT DISPLAYS: PHILIP Julien Placed by: PHILIP Julien Patient Identified, IV Checked, Risks and Benefits Discussed, Surgical Consent, Monitors and Equipment Checked, Pre-op Evaluation and Timeout Performed Fire Risk Assessment Score: 0 Consent for Emergent Airway (if performed for an anesthetic, see related documentation for consents) Risks and benefits: risks, benefits and alternatives were discussed Indications and Patient Condition Sedation level: Deep Preoxygenated: yesPatient position: Supine Mask difficulty assessment: Vent By Mask Indications for airway management: Anesthesia and Airway Protection Complications: No Complicating Factors: No Final Airway Details Final airway type: ETT Endotracheal airway: Cuffed and ETT - Single Lumen Techniques used for successful ETT Placement: Direct Laryngoscopy and With Stylet Cormack-Lehane Classification: Grade I Adjuncts used in placement: Cricoid Pressure Endotracheal tube insertion site: Oral Post Intubation Trauma? No Visibility: Cords Clear Blade: Maryana Blade size: #3 Placement verified by: chest auscultation, capnography and symmetrical chest wall movement ETT size: 8.0 mm Measured from: Lips Secured at (cm): 23 Number of attempts at approach: 1 Law Mi MD ANESTHESIA ORDERABLES Final Result * (ABNORMAL) POCT ABG Rapid K GLU ICA HH (01/04/2025 11:24 AM EDT) Only the most recent of4 resultswithin the time period is included. POC Potassium 4.1 3.5 - 5.0 mmol/L 01/04/2025 11:26 AM [facility] POC Glucose 185(H) 65 - 99 mg/dL 01/04/2025 11:26 AM [facility] POC HGB 10.5(L) 13.0 - 17.0 g/dL 01/04/2025 11:26 AM [facility] POC Hematocrit 32(LL) 39 - 47 % 01/04/2025 11:26 AM [facility] POC Ionized Calcium 4.6 4.5 - 5.3 mg/dL 01/04/2025 11:26 AM [facility] Sample type Arterial 01/04/2025 11:26 AM [facility] Body Temp 37.00 >=37 C 01/04/2025 11:26 AM [facility] pH, Arterial 7.271(L) 7.350 - 7.450 01/04/2025 11:26 AM [facility] pCO2, Arterial 45.5(H) 35.0 - 45.0 mmHg 01/04/2025 11:26 AM [facility] PO2, Arterial 300(H) 80 - 100 mmHg 01/04/2025 11:26 AM [facility] Base, Deficit -5.9(L) 0.0 - 2.0 mmol/L 01/04/2025 11:[address] [facility] HCO3, Arterial 21.0(L) 22.0 - 26.0 mmol/L 01/04/2025 11:[address] [facility] %O2 Saturation, Arterial 100.2 >90.0 % 01/04/2025 11:[address] [facility] Kavon's test NA 01/04/2025 11:[address] [facility] Sample site A LINE 01/04/2025 11:[address] [facility] Insp. O2 conc. 100.0 % 01/04/2025 11:[address] [facility] arterial (Blood, Arterial) 01/04/2025 11:24 AM EDT 01/04/2025 11:26 AM EDT us Dawit Dietz MD POINT OF CARE TEST ORDE RABDIAMOND Final Result [facility] [address] [place] [address], [place] * (ABNORMAL) Hemoglobin and hematocrit, blood (01/04/2025 8:10 AM EDT) Only the most recent of3 resultswithin the time period is included. Hemoglobin 10.4(L) 13 - 17 g/dL 01/04/2025 8:37 AM EDT [facility] Hematocrit 30.1(L) 39 - 50 % 01/04/2025 8:37 AM EDT [facility] Blood (Other) 01/04/2025 8:1 0 AM EDT 01/04/2025 8:26 AM EDT us Gurvinder Gomes MD LAB BLOOD ORDERABLES Final Result [facility] [address] [place] [address], [place] [phone] * TEG BILL ONLY (01/04/2025 7:52 AM EDT) Only the most recent of6 resultswithin the time period is included. Blood (Other) 01/04/2025 7:5 2 AM EDT 01/11/2025 9:27 AM EDT Dawit Dietz MD LAB BLOOD ORDERABLES Fi nal Result Performing Organization Address City/[facility]/ZIP Co de Phone Number [facility] [address] [place] [address], [place] * ECG 12 lead (01/04/2025 4:09 AM EDT) Only the most recent of2 resultswithin the time period is included. 01/04/2025 4:09 AM EDT Narrative TRACEMASTERVUE - 01/08/2025 11:17 PM EDT Dawit Dietz MD ECG ORDERABLES Final R esult Performing Organization Address [facility] de Phone Number [facility] * Platelet set-up: Number of Units: 1 (01/04/2025 3:00 AM EDT) Only the most recent of2 resultswithin the time period is included. Blood component type [id number] BLOOD [facility] Unit number [id number] BL OOD [facility] Unit ABO O BLOOD [facility] [place] Unit RH POS BLOOD [facility] [place] Status of unit TRANSFUSED BLOO D [facility] [place] Expiration Date [id number] [facility] Type Barcode 5100 BLOOD [facility] [place] Blood Venous blood / Unknown 01/04/2025 3:00 AM EDT Dawit Dietz MD BLOOD BANK PRODUCT ORDE MAURICIO Edited Result - Final Performing Organization Address [facility] Co de Phone Number BLOOD [facility] * FFP setup:Number of Units: 1 (01/04/2025 3:00 AM EDT) Only the most recent of2 resultswithin the time period is included. Blood component type [id number] BLOOD [facility] - [place] Unit number [id number] BL OOD BANK - [place] Unit ABO B BLOOD BANK - [place] Unit RH POS BLOOD [facility] - [place] Status of unit TRANSFUSED BLOO D KELI LICONA Expiration Date BLOOD KELI - [place] BB Type Barcode 7300 BLOOD KELI - [place] Blood Venous blood / Unknown 01/04/2025 3:00 AM EDT Dawit Dietz MD BLOOD BANK PRODUCT ORDE MAURICIO Edited Result - Final BLOOD KELI LICONA * Transfuse RBC:1 Unit (01/04/2025 2:46 AM EDT) Only the most recent of3 resultswithin the time period is included. Kleber Hector MD BLOOD TRANSFUSION ORDERABLES Final Result * Lavender Top (01/03/2025 10:42 PM EDT) Extra Tube Auto Resulted 01/04/2025 3:03 AM EDT [facility] LABORATORY Blood Venous blood / Unknown 01/03/2025 10:42 PM EDT 01/03/2025 11:04 PM EDT Dawit Dietz MD LAB BLOOD ORDERABLES Fi nal Result [facility] [address] [place] [address], [place] [phone] * (ABNORMAL) Hemoglobin (01/03/2025 10:42 PM EDT) Hemoglobin 9.3(L) 13 - 17 g/dL 01/04/2025 8:07 AM EDT [facility] Blood Venous blood / Unknown 01/03/2025 10:42 PM EDT 01/03/2025 11:04 PM EDT Gurvinder Gomes MD LAB BLOOD ORDERABLES Final Result Performing Organization Address City/[facility]/ZIP Co de Phone Number [facility] [address] [place] [address], * (ABNORMAL) Platelet count (01/03/2025 7:25 PM EDT) Only the most recent of2 resultswithin the time period is included. Platelet Count 119(L) 150 - 450 X10E9/L 01/03/2025 8:56 PM EDT [facility] Blood Venous blood / Unknown 01/03/2025 7:25 PM EDT 01/03/2025 7:56 PM EDT Kleber Hector MD LAB BLOOD ORDERABLES Final Re sult Performing Organization Address City/[facility]/ZIP Co de Phone Number [facility] [address] [place] [address], * Transfuse fresh frozen plasma: (01/03/2025 4:26 PM EDT) Only the most recent of3 resultswithin the time period is included. Dawit Dietz MD BLOOD TRANSFUSION ORDER DEMI Final Result * Transfuse platelets: (01/03/2025 4:26 PM EDT) Only the most recent of3 resultswithin the time period is included. Dawit Dietz MD BLOOD TRANSFUSION ORDER DEMI Final Result * (ABNORMAL) Blood Gas, Arterial (01/03/2025 2:33 PM EDT) Sample type Arterial 01/03/2025 2:[address] [facility] Body Temp 37.00 >=37 C 01/03/2025 2:[address] [facility] pH, Arterial 7.491(H) 7.350 - 7.450 01/03/2025 2:[address] [facility] pCO2, Arterial 33.7(L) 35.0 - 45.0 mmHg 01/03/2025 2:[address] [facility] PO2, Arterial 299(H) 80 - 100 mmHg 01/03/2025 2:[address] [facility] Base, Excess 2.4(H) 0.0 - 2.0 mmol/L 01/03/2025 2:[address] [facility] HCO3, Arterial 25.7 22.0 - 26.0 mmol/L 01/03/2025 2:[address] [facility] %O2 Saturation, Arterial 100.7 >90.0 % 01/03/2025 2:[address] [facility] Kavon's test NA 01/03/2025 2:[address] [facility] SPO2 299.0 % 01/03/2025 2:[address] [facility] Sample site A LINE 01/03/2025 2:[address] [facility] Insp. O2 conc. 100.0 % 01/03/2025 2:[address] [facility] arterial (Blood, Arterial) 01/03/2025 2:33 PM EDT 01/03/2025 2:33 PM EDT us Dawit Dietz MD LAB BLOOD ORDERABLES Fi nal Result [facility] [address] [place] [address], [place] * BUN (01/03/2025 2:00 PM EDT) BLOOD UREA NITROGEN 15 5 - 27 mg/dL 01/03/2025 3:03 PM EDT [facility] Blood Venous blood / Unknown 01/03/2025 2:00 PM EDT 01/03/2025 2:14 PM EDT us Dawit Dietz MD LAB BLOOD ORDERABLES Fi nal Result [facility] [address] [place] [address], [place] [phone] * Creatinine includes GFR, serum (01/03/2025 2:00 PM EDT) CREATININE 0.79 0.60 - 1.30 mg/dL 01/03/2025 3:03 PM EDT [facility] Comment:METHOD TRACEABLE TO IDMS STANDARD EGFR Non-Race Dependent 90 >=60 ml/min/1.7 3sq.m 01/03/2025 3:03 PM EDT [facility] Comment: Reported eGFR is based on the CKD-EPI 2020 equation that does not use a race coefficient. Blood Venous blood / Unknown 01/03/2025 2:00 PM EDT 01/03/2025 2:14 PM EDT us Dawit Dietz MD LAB BLOOD ORDERABLES Fi nal Result [facility] [address] [place] [address], * ANESTHESIA CORNELIUS (01/03/2025 12:51 PM EDT) Narrative Javi Deras MD - 01/03/2025 12:51 PM EDT Javi Deras MD 01/03/2025 12:55 PM CORNELIUS Patient Location: OR Type of Anesthesia: General Anesthesia: Requesting Physician: aDwit Dietz MD IV Insitu: Peripheral Service Provider: Javi Deras MD Placed by: Javi Deras MD Checklist: Patient Identified, IV Checked, Risks and Benefits Discussed, Surgical Consent, Monitors and Equipment Checked, Pre-op Evaluation and Timeout Performed Fire Risk Assessment Score: 0 Indication for CORNELIUS: Assessment of Surgical Repair Intubated: Yes Heart Visualized: Yes Insertion: Easy Probe Type: Biplane Modalities: 3D, Pulse Wave Doppler, Continuous Wave Doppler and Color Flow Mapping Right Ventricle Cavity Size: Normal Hypertrophy: No Thrombus: No Function: Normal Left Ventricle cavity size: Normal Hypertrophy: None Thrombus: No Function: Mild AV Annulus: Mechanical AV Stenosis: None AV Gradient: 12 mmHg AV Regurgitation: Mild AV Leaflet Morphology: Normal AV Leaflet Motion: Normal MV Annulus: Normal MV Stenosis: None MV Regurgitation: Moderate regurgitation is present. MV Leaflet Morphology: Normal MV Leaflet Motion: Normal TV Annulus: Normal TV Stenosis: None Severity: trace TV Leaflet Morphology: Normal TV Leaflet Motion: Normal PV Annulus: Normal PV Stenosis:None PV Regurgitation: None PV Leaflet Morphology: Normal Ascending Aorta: Dilated AA Diameter: 5 cm AA Dissection: No AA Plaque Thick: Grade 2 AA Plaque Mobile: No Aortic Arch: Normal Arch Dissection:No Aortic Arch Plaque Thick: grade 2 Aortic Arch Plaque Mobile:No Descending Aorta: Normal Aortic Arch Plaque Mobile:No Descending Aorta Plaque Thick: grade 2 Descending Aorta Plaque Mobile:No Right Atrium: Normal RA SEC: No RA Thrombus: No RA Tumor: No RA Device:No Left Atrium: Normal LA SEC: No LA Thrombus: No LA Tumor:No LA Device: No Left Atrial Appendage: Normal Intra-Atrial Septal Morphology: Normal Intra-Ventricular Septal Morphology: Normal Pericardium: Normal Pericardial Effusion: None Pleural: normal Pleural Effusion: None Pulmonary Arteries: Normal Pulmonary Venous Flow: normal Echocardiogram Comments: Post-bypass (circulatory arrest): AA: Graft visualized with no distal dissection appreciated LV: Stable, LVEF 40-45%, no obvious RWMAs RV: Stable, normal function AV: Ball in cage with stable mean gradient of 10-12mmHg, trace/mild AI MV: Stable mild/mod MR Other valves: Stable as above AV post intervention: trace and mild AV mean 12 mmHg post intervention: mild and moderate TV Regurgitation post intervention: trace LV Function post intervention: unchanged LV function RV Function post intervention: UnchangedLV Ejection Fraction: 40-45 us Javi Deras MD ANESTHESIA ORDERABLES Final Resu lt * (ABNORMAL) POCT ABG Rapid K GLU HH (01/03/2025 12:14 PM EDT) Only the most recent of4 resultswithin the time period is included. POC Potassium 4.4 3.5 - 5.0 mmol/L 01/03/2025 12:[address] [facility] POC Glucose 161(H) 65 - 99 mg/dL 01/03/2025 12:[address] [facility] POC HGB 7.9(L) 13.0 - 17.0 g/dL 01/03/2025 12:[address] [facility] POC Hematocrit 24(LL) 39 - 47 % 01/03/2025 12:[address] [facility] Sample type Arterial 01/03/2025 12:[address] [facility] Body Temp 37.00 >=37 C 01/03/2025 12:[address] [facility] pH, Arterial 7.480(H) 7.350 - 7.450 01/03/2025 12:[address] [facility] pCO2, Arterial 32.8(L) 35.0 - 45.0 mmHg 01/03/2025 12:[address] [facility] PO2, Arterial 297(H) 80 - 100 mmHg 01/03/2025 12:[address] [facility] Base, Excess 0.9 0.0 - 2.0 mmol/L 01/03/2025 12:[address] [facility] HCO3, Arterial 24.4 22.0 - 26.0 mmol/L 01/03/2025 12:[address] [facility] %O2 Saturation, Arterial 100.5 >90.0 % 01/03/2025 12:[address] [facility] Kavon's test NA 01/03/2025 12:[address] [facility] Sample site A LINE 01/03/2025 12:[address] [facility] Insp. O2 conc. 100.0 % 01/03/2025 12:[address] [facility] SPO2 297.0 % 01/03/2025 12:[address] [facility] arterial (Blood, Arterial) 01/03/2025 12:14 PM EDT 01/03/2025 12:17 PM EDT us Dawit Dietz MD POINT OF CARE TEST KAREEM MARTÍNEZ Final Result 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 01/23/2025 12:11 PM EDT [facility] at 1211 EDT Gross Description Received in formalin labeled 4 Walder, aortic aneurysm is a segment of vessel consistent with aorta, 7 cm in length ranging from 4 cm to 6.5 cm in diameter. The adventitia is purple-eaton and membranous to focally erythematous. The intima is yellow-eaton and glistening with dark yellow crisp plaque-like areas. The wall ranges from 0.2 cm to 0.3 cm in thickness. Spa Director/Finance sections are submitted in a single cassette. (1, , [id number], m8.1) . 01/23/2025 12:11 PM EDT [facility] Embedded Images 01/23/2025 12:11 PM EDT [facility] Tissue Heart structure / Unknown 01/03/2025 10:41 AM EDT 01/03/2025 2:01 PM EDT Comment:Pre-op diagnosis: AORTIC ANEURYSM Dawit Dietz MD PATHOLOGY/CYTOLOGY KAREEM MARTÍNEZ Final Result [facility] [address] [place] [address], [facility] [address] [place] [address], * DE ANES ART LINE (01/03/2025 8:52 AM EDT) Narrative Dawit Moon APRN-CRNA - 01/03/2025 8:52 AM EDT PHILIP Dillon 01/03/2025 8:53 AM Art Line Performed by: PHILIP Dillon Authorized by: Javi Deras MD Patient Location: OR Start Time: 01/03/2025 7:40 AM End Time: 01/03/2025 7:51 AM Service Provider: Javi Deras MD SALES ASSISTANT DISPLAYS ( if not the service provider): PHILIP Dillon Placed By: PHILIP Dillon Complete checklist: Patient Identified, IV Checked, Risks and Benefits Discussed, Surgical Consent, Monitors and Equipment Checked, Pre-op Evaluation and Timeout Performed Fire Risk Assessment Score: 0 Site Prep: Alcohol, Chlorhexadine and Isopropyl Alcohol, Chlorhexidine and Maximum Sterile Barriers Used Hand Hygiene Performed Prior to Insertion: Yes Site Prep Agent has Completely Dried Before Insertion: Yes Patient Prep Prior to AL Insertion: Sedated and General Anesthesia Size: 20 G Total Catheter Length (inches): 1 34 Location: Radial Orientation: Left Securement Method: Transparent Dressing, Taped and Sutured Placement Technique: Anatomical Landmarks and Guidewire Insertion Attempts: 2 Patient Tolerance: Tolerated Well no arterial injury Comments: Attempted right radial, unable to pass guidewire. Left radial as detailed in note. us Javi Deras MD DE ANESTHESIA Final Result * DE INSERT/PLACE FLOW DIRECT CATH (01/03/2025 8:50 AM EDT) Dawit Velasco APRN-CRNA - 01/03/2025 8:50 AM EDT PHILIP Dillon 01/03/2025 8:52 AM Venous Access Line (CVC/[place]) Performed by: PHILIP Dillon Authorized by: Javi Deras MD Patient Location: OR Start Time: 01/03/2025 7:40 AM End Time: 01/03/2025 7:44 AM Service Provider: Javi Deras MD SALES ASSISTANT DISPLAYS ( if not the service provider): PHILIP Dillon Placed By: Javi Deras MD Patient Identified, IV Checked, Risks and Benefits Discussed, Surgical Consent, Monitors and Equipment Checked, Pre-op Evaluation and Timeout Performed Fire Risk Assessment Score: 0 Vascular Access: Introducer Number of Introducer Lumens: Double Vascular Access: [place] Is the patient 5 years old or younger: No Prep: Chlorhexadine and Isopropyl Alcohol, Chlorhexidine and Maximum Sterile Barriers used during central venous catheter insertion Hand Hygiene Performed Prior to Insertion: Yes Site Prep Agent has Completely Dried Before Insertion: Yes Patient Prep prior to CVC insertion: Yes Type of Patient Prep: General Anesthesia Location: Internal Jugular Orientation: Right Securement Method: Transparent Dressing and Sutured Placement Technique: Guidewire and Ultrasound Guidance Insertion Attempts: 1 Placement Verification: Blood Return and Ultrasound Patient Tolerance: Tolerated Well us Javi Deras MD DE ANESTHESIA Final Result * POCT IMAGN (01/03/2025 8:00 AM EDT) POC Ionized Magnesium 0.52 0.45 - 0.60 mmol/L 01/03/2025 8:[address] [facility] venous 01/03/2025 8:00 AM EDT 01/03/2025 8:08 AM EDT us Dawit Dietz MD POINT OF CARE TEST KAREEM MARTÍNEZ Final Result [facility] [address] [place] [address], * DE AN ELECTIVE ENDOTRACHEAL AIRWAY (01/03/2025 7:39 AM EDT) Narrative Dawit Moon APRN-CRNA - 01/03/2025 7:39 AM EDT PHILIP Dillon 01/03/2025 8:49 AM Airway Patient location during procedure: OR Urgency: Elective Date/Time: 01/03/2025 7:39 AM Airway not difficult IV In Situ: Peripheral General Information and Staff Service Provider: Javi Deras MD SALES ASSISTANT DISPLAYS: PHILIP Dillon Placed by: Javi Deras MD Patient Identified, IV Checked, Risks and Benefits Discussed, Surgical Consent, Monitors and Equipment Checked, Pre-op Evaluation and Timeout Performed Fire Risk Assessment Score: 0 Consent for Emergent Airway (if performed for an anesthetic, see related documentation for consents) Risks and benefits: risks, benefits and alternatives were discussed Indications and Patient Condition Sedation level: Deep Preoxygenated: yesPatient position: Supine MILS maintained throughout Mask difficulty assessment: Vent By Mask Indications for airway management: Anesthesia and Airway Protection Complications: No Complicating Factors: No Final Airway Details Final airway type: ETT Endotracheal airway: Cuffed, ETT - Single Lumen and Inflated Techniques used for successful ETT Placement: Direct Laryngoscopy and With Stylet Cormack-Lehane Classification: Grade I Endotracheal tube insertion site: Oral No Bite Block Placed Dentition Check Pre: See Pre-Evaluaton documentation Post Intubation Trauma? No Visibility: Cords Clear Blade: Maryana Blade size: #3 Placement verified by: chest auscultation, capnography and symmetrical chest wall movement ETT size: 8.0 mm Measured from: Lips Secured at (cm): 23 Number of attempts at approach: 1 us Javi Deras MD ANESTHESIA ORDERABLES Final Resu lt * Intra-operative transesophageal echocardiogram (01/03/2025 7:23 AM EDT) Narrative [facility] - 01/03/2025 7:23 AM EDT See Anesthesia CORNELIUS procedure note for findings. us Dawit Dietz MD CV ECHO ORDERABLES Viji l Result Performing Organization Address City/[facility]/ZIP Co de Phone Number [facility] * Portable Protime (01/03/2025 6:24 AM EDT) POC INR 1.1 0.9 - 1.2 01/03/2025 6:[address] [facility] 01/03/2025 6:24 AM EDT 01/03/2025 6:31 AM EDT us Dawit Dietz MD POINT OF CARE TEST ORDE MAURICIO Final Result Performing Organization Address [facility]/ZIP Co de Phone Number [facility] [address] [place] [address], [place] * Vas carotid duplex bilateral (12/26/2024 10:41 AM EDT) Anatomical Region Laterality Modality Vascular Bilateral Ultrasound 12/26/2024 10:4 6 AM EDT Narrative 12/27/2024 1:12 PM EDT Right: Plaque with no significant ICA spectral Doppler or color flow disturbances; ICA 113/35 cm/sec. Antegrade vertebral artery flow. Tortuosity of the internal carotid artery. Left: Plaque with no significant ICA spectral Doppler or color flow disturbances; ICA 84/21 cm/sec. Antegrade vertebral artery flow. Tortuosity of the internal carotid artery. Conclusions: BILATERAL: Plaque without significant stenosis (<50%) of the internal carotid artery. Antegrade vertebral artery flow. Recommendations: Any questions prior to finalization, please call the reading physician during normal business hours at the phone number beside their name. Procedure Note Annelise Delgado DO - 12/27/2024 Right: Plaque with no significant ICA spectral Doppler or color flowdisturbances; ICA 113/35 cm/sec. Antegrade vertebral artery flow.Tortuosity of the internal carotid artery. Left: Plaque with no significant ICA spectral Doppler or color flowdisturbances; ICA 84/21 cm/sec. Antegrade vertebral artery flow.Tortuosity of the internal carotid artery. Conclusions: BILATERAL: Plaque without significant stenosis (<50%) of theinternal carotid artery. Antegrade vertebral artery flow. Recommendations: Any questions prior to finalization, please call thereading physician during normal business hours at the phone number besidetheir name. us Dawit Dietz MD CV VASCULAR ORDERABLES Final Result * Hemoglobin A1c (12/26/2024 9:40 AM EDT) Pathologist [facility] Hemoglobin A1C 5.6 4.4 - 5.6 % 12/26/2024 12:10 PM EDT [facility] Comment: NOTE ADA Guidelines Result HgbA1c Normal : less than 5.7 % Prediabetes : 5.7 % to 6.4 % Diabetes : > 6.4 % Use with caution in patients with abnormal hemoglobin variants as the half-life of red blood cells and in vivo glycation rates are affected. Average glucose 114 mg/dL 12:10 PM EDT [facility] PLASMA 12/26/2024 9:40 AM EDT 12/26/2024 10:06 AM EDT us Dawit Dietz MD LAB BLOOD ORDERABLES Fi nal Result [facility] [address] [place] [address] * (ABNORMAL) Comprehensive metabolic panel (12/26/2024 9:40 AM EDT) Sodium 139 134 - 146 mmol/L 12/26/2024 2:11 PM EDT [facility] Potassium, Bld 4.0 3.5 - 5.0 mmol/L 12/26/2024 2:11 PM EDT [facility] Chloride 103 98 - 109 mmol/L 12/26/2024 2:11 PM EDT [facility] CO2 26 22 - 32 mmol/L 12/26/2024 2:11 PM EDT [facility] Anion gap 10 5 - 15 mmol/L 12/26/2024 2:11 PM EDT [facility] BUN 23 5 - 27 mg/dL 12/26/2024 2:11 PM EDT [facility] Creatinine 0.92 0.60 - 1.30 mg/dL 12/26/2024 2:11 PM EDT [facility] Comment:METHOD TRACEABLE TO IDMS STANDARD Glucose 123(H) 65 - 99 mg/dL 12/26/2024 2:11 PM EDT [facility] Calcium 9.4 8.5 - 10.5 mg/dL 12/26/2024 2:11 PM EDT [facility] Total Protein 6.9 6.0 - 8.0 g/dL 12/26/2024 2:11 PM EDT [facility] Albumin 4.4 3.2 - 5.3 g/dL 12/26/2024 2:11 PM EDT [facility] Alkaline Phosphatase 69 39 - 130 U/L 12/26/2024 2:11 PM EDT [facility] AST 20 0 - 41 U/L 12/26/2024 2:11 PM EDT [facility] ALT 11 0 - 40 U/L 12/26/2024 2:11 PM EDT [facility] Total bilirubin 0.6 0.3 - 1.2 mg/dL 12/26/2024 2:11 PM EDT [facility] eGFR (CKD-EPI)non-rac e dependent 85 >59 ml/min/1.7 3sq.m 12/26/2024 2:11 PM EDT [facility] Comment: Reported eGFR is based on the CKD-EPI 2020 equation that does not use a race coefficient. PLASMA 12/26/2024 9:40 AM EDT 12/26/2024 10:06 AM EDT us Dawit Dietz MD LAB BLOOD ORDERABLES Fi nal Result [facility] [address] [place] [address] * Crossmatch RBC: (12/26/2024 9:30 AM EDT) Only the most recent of16 resultswithin the time period is included. Blood component type [id number] BLOOD BANK - [facility] Unit number [id number] BL OOD BANK - [facility] Unit ABO O BLOOD BANK - [place] Unit RH POS BLOOD BANK - [place] Status of unit TRANSFUSED BLOO D BANK - [place] Expiration Date [id number] BLOOD BANK - [facility] BB Type Barcode 5100 BLOOD BANK - [place] 12/26/2024 9:30 AM EDT 12/26/2024 11:53 AM EDT Dawit Dietz MD BLOOD BANK PRODUCT ORDE RABDIAMOND Final Result [facility]LOOD B[facility] - [facility] * Type and screen(includes indirect josse) (12/26/2024 9:30 AM EDT) ABO O 12/26/2024 1:[address] [facility] RH Positive 12/26/2024 1:[address] [facility] Antibody Screen Negative 12/26/2024 1:[address] [facility] 12/26/2024 9:30 AM EDT us Dawit Dietz MD BLOOD BANK TEST ORDERAB LES Edited Result - Final [facility] [address] [place] [address], [place] * CT angiogram chest (11/24/2024 2:58 PM EDT) Anatomical Region Laterality Modality Lung, Body, Chest, Vascular, Body Covera N/A Computed Tomography 11/25/2024 9:34 AM EDT Narrative 11/25/2024 9:39 AM EDT CLINICAL INFORMATION: Acute aortic syndrome. Chest pain.. COMPARISON: None. PROCEDURE: CT angiography of the chest was performed with IV contrast. Sagittal and coronal reformatted images with 3-D Maximum intensity projection reconstructions constructed under concurrent physician supervision on a independent workstation. Automated exposure control was utilized. 3-D reformatted images confirm the source data findings. All CT scans at this facility dose modulation, iterative reconstruction, and/or weight based dosing when appropriate to reduce radiation dose to as low as reasonably achievable. FINDINGS: The heart is normal in size. No pericardial effusion. Mild calcification in the coronary arteries. Prior aortic valve replacement. Aortic measurements as follows: Aorta the sinuses: 3.4 x 4.1 cm. Sinotubular junction: 3.5 x 4.0 cm. Mid ascending thoracic aorta: 4.8 x 5.8 cm. Proximal aortic arch: 3.5 x 3.9 cm. Mid aortic arch: 2.6 x 2.8 cm. Proximal descending thoracic aorta: 2.1 x 2.4 cm. Mid descending thoracic aorta: 2.3 x 2.4 cm. Pulmonary arteries are patent. No evidence of pulmonary embolus. No mediastinal or hilar lymphadenopathy. The trachea and mainstem bronchi are patent. Atelectasis at the lower lobes. No pleural effusion or pneumothorax. Spiculated pleural-based nodule anterior left upper lobe measuring up to 1.9 cm. Large hiatal hernia. No acute findings in the partially visualized abdomen. No acute osseous abnormalities. IMPRESSION: 1. Fusiform aneurysmal dilatation at the mid ascending thoracic aorta measuring 4.8 x 5.8 cm. 2. Solid spiculated nodule in the anterior left upper lobe measuring 1.9 cm. Neoplasm cannot be excluded and further evaluation with PET scan recommended. 3. Large hiatal hernia. THIS REPORT CONTAINS A SIGNIFICANT RESULT AND/OR RECOMMENDATION, WHICH REQUIRES THE ATTENTION OF THE LICENSED CAREGIVER RESPONSIBLE FOR THIS PATIENT. THEREFORE, I SPECIFICALLY DESIGNATED THIS REPORT TO BE TELEPHONED BY THE RADIOLOGY DEPARTMENT. FINDINGS WERE INSTRUCTED TO BE CALLED TO THE CLINICAL SERVICE ON 11/25/2024 AT 9:40 AM. Finalized by Harley Rowe MD on 11/25/2024 9:39 AM Procedure Note Harley Rowe MD - 11/25/2024 CLINICAL INFORMATION: Acute aortic syndrome. Chest pain.. COMPARISON: None. PROCEDURE: CT angiography of the chest was performed with IV contrast.Sagittal and coronal reformatted images with 3-D Maximum intensityprojection reconstructions constructed under concurrent physiciansupervision on a independent workstation. Automated exposure control wasutilized. 3-D reformatted images confirm the source data findings. All CT scans at thisfacility dose modulation, iterative reconstruction, and/or weight baseddosing when appropriate to reduce radiation dose to as low as reasonablyachievable. FINDINGS: The heart is normal in size. No pericardial effusion. Mild calcification in the coronary arteries. Prior aortic valvereplacement. Aortic measurements as follows: Aorta the sinuses: 3.4 x 4.1 cm. Sinotubular junction: 3.5 x 4.0 cm. Mid ascending thoracic aorta: 4.8 x 5.8 cm. Proximal aortic arch: 3.5 x 3.9 cm. Mid aortic arch: 2.6 x 2.8 cm. Proximal descending thoracic aorta: 2.1 x 2.4 cm. Mid descending thoracic aorta: 2.3 x 2.4 cm. Pulmonary arteries are patent. No evidence of pulmonary embolus. No mediastinal or hilar lymphadenopathy. The trachea and mainstem bronchi are patent. Atelectasis at the lower lobes. No pleural effusion or pneumothorax. Spiculated pleural-based nodule anterior left upper lobe measuring up to1.9 cm. Large hiatal hernia. No acute findings in the partially visualizedabdomen. No acute osseous abnormalities. IMPRESSION: 1. Fusiform aneurysmal dilatation at the mid ascending thoracic aortameasuring 4.8 x 5.8 cm. 2. Solid spiculated nodule in the anterior left upper lobe measuring 1.9cm. Neoplasm cannot be excluded and further evaluation with PET scanrecommended. 3. Large hiatal hernia. THIS REPORT CONTAINS A SIGNIFICANT RESULT AND/OR RECOMMENDATION, WHICHREQUIRES THE ATTENTION OF THE LICENSED CAREGIVER RESPONSIBLE FOR THISPATIENT. THEREFORE, I SPECIFICALLY DESIGNATED THIS REPORT TO BE TELEPHONED BY THERADIOLOGY DEPARTMENT. FINDINGS WERE INSTRUCTED TO BE CALLED TO THE CLINICAL SERVICE ON 11/25/2024T 9:40 AM. Finalized by Harley Rowe MD on 11/25/2024 9:39 AM Estella Guzman PA-C IMG CT ORDERABLES Final Result from Last 3 Months Insurance [employer] MEDICARE Advance Directives Documents on File Type Date Recorded Patient Spa Director/Finance Expl anation Advance Directive 03/04/2017 4:46 PM CONSE NT FOR TREATMENT 03/04/17 * Full Code (Latest Code Status on File) Date Activated Date Inactivated Comments 01/03/2025 1:35 PM 01/09/2025 5:07 PM * Full Code Date Activated Date Inactivated Comments 03/01/2020 8:12 AM 03/14/2020 7:44 PM * Full Code Date Activated Date Inactivated Comments 12/09/2019 7:59 AM 12/09/2019 3:42 PM Care Teams Licensed Journeyman Electrician Relationship Specialty Start Date End Date Casper Vilchis DO PCP - General Family Medicine 11/07/24 Casper Vilchis DO [address] [place] [address] Provider Family Medicine 11/14/24
--- OUTSIDE RECORDS SUMMARY | 2025-02-23 18:53 | XMS_ITS ---
Author Organization [employer] tem Address [facility] [place]-[id number] [address] 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 Past Treatment and Therapy Plans No past plan information found. Lifetime Dose Tracking * Chemical Lifetime Dose Automatic Entry Manual Entr y Fluoroscopy 3,876 mGy 3,876 mGy 0 mGy Resolved Problems Problem Noted Date Diagnosed Date Resolved Date History of anticoagulant therapy 12/20/2020 03/21/2024
--- OUTSIDE RECORDS SUMMARY | 2025-02-23 18:53 | XMS_ITS | Encounter Summary ---
Author Organization [employer] s tem Address [facility] [place]-[id number] [address] [place] [address] Care Team Providers Care Wafer Fab Operator Name Role Phone Casper Vilchis DO Primary Care Provider Destiney chavis Encounter Details Date Type Department Care Team (Latest Contact Info) Description 02/20/2025 Travel Social History Tobacco Use Types Packs/Day Years Used Date Smoking Tobacco: Former Cigarettes 2 2 0 12/07/1977 - 12/08/1979 Smokeless Tobacco: Never Alcohol Use Standard Drinks/Week Comments Not Currently 0 (1 standard drink = 0.6 oz pur e alcohol) [facility] Utilities Answer Date Recorded In the [...] 03/02/2025 12:30 PM EDT Follow Up Anticoagulation [facility] - Pharmacy Medication Management [address] [place] [address] 03/02/2025 1:00 PM EDT Office Visit [facility] [address] [place] [phone] Casper Swain MD [address] [facility] [place] [phone] Robert Jade MD [address] [place], [place] [phone] 03/14/2025 1:00 PM EDT [facility] [address] [place] [phone] 05/29/2025 11:15 AM EDT Office Visit [facility] [address] [place] [phone] Tristan Watson MD [address] [place], [place] [phone] documented as of this encounter Goals Goal Patient Goal Type Associated Problems Recent Progress Patient-Stated? Author <enter goal here> General Yes Viola Gamble, RN Note: Evaluation of progress towards goal: patient progressing toward safe discharge home. documented as of this encounter Visit Diagnoses Not on filedocumented in this encounter Care Teams Wafer Fab Operator Relationship Specialty Start Date End Date Casper Vilchis DO PCP - General Family Medicine 11/07/24 Casper Vilchis DO [address] [place] [address] Provider Family Medicine 11/14/24 documented as of this encounter
--- OUTSIDE RECORDS SUMMARY | 2025-02-23 18:54 | XMS_ITS | Encounter Summary ---
Author Organization [employer] s tem Address [id number] [address] [place] [address] Care Team Providers Care Pasting Inspector Name Role Phone Casper Vilchis DO Primary Care Provider Destiney chavis Encounter Details Date Type Department Care Team (Latest Contact Info) Description 02/09/2025 Travel Social History Tobacco Use Types Packs/Day Years Used Date Smoking Tobacco: Former Cigarettes 2 2 0 12/07/1977 - 12/08/1979 Smokeless Tobacco: Never Alcohol Use Standard Drinks/Week Comments Not Currently 0 (1 standard drink = 0.6 oz pur e alcohol) [facility] Utilities Answer Date Recorded In the past [...] 03/02/2025 12:30 PM EDT Follow Up Anticoagulation [facility] - Pharmacy Medication Management [address] [place] [address] 03/02/2025 1:00 PM EDT Office Visit [facility] [address] [place] [phone] Casper Swain MD [address] [facility] [place] [phone] Robert Jade MD [address] [place], [place] [phone] 03/14/2025 1:00 PM EDT [facility] [address] [place] [phone] 05/29/2025 11:15 AM EDT Office Visit [facility] [address] [place] [phone] Tristan Watson MD [address] [place], [place] [phone] documented as of this encounter Goals Goal Patient Goal Type Associated Problems Recent Progress Patient-Stated? Author <enter goal here> General Yes Viola Gamble, RN Note: Evaluation of progress towards goal: patient progressing toward safe discharge home. documented as of this encounter Visit Diagnoses Not on filedocumented in this encounter Care Teams Pasting Inspector Relationship Specialty Start Date End Date Casper Vilchis DO PCP - General Family Medicine 11/07/24 Casper Vilchis DO [address] [place] [address] Provider Family Medicine 11/14/24 documented as of this encounter
--- OUTSIDE RECORDS SUMMARY | 2025-02-23 18:54 | XMS_ITS | Clinical Summary ---
Author Organization [facility] Address [address] [place] [address] Phone Care Team Providers Care Heavy Threader Name Role Phone Unavailable Primary Care Provider Unavailabl e Social History Tobacco Use Types Packs/Day Years Used Date Smoking Tobacco: Never Assessed Sex and Gender Information Value Date Recorded Sex Assigned at Not on file Legal Sex Male 5:45 PM EST Gender Identity Not on file Sexual Orientation Not on file Plan of Treatment Health Maintenance Due Date Last Done Comments Lipid Panel 1945 Medicare Annual Wellness Vis it (AWV) 1945 Hepatitis C Screening 12/23/1963 DTaP/Tdap/Td Vaccines (1 - Tdap) 12/23/1967 Pneumococcal Vaccine (1 of 1 - PCV) 12/23/1995 Zoster Vaccines (1 of 2) 12/23/1995 RSV High Risk: (Elderly (60+ ) or Population) (1 - 1-dose 75+ series) 2020 COVID-19 Vaccine ( - 2023-2 5 season) 2024 Influenza Vaccine (Season Ended) 2025 HIB Vaccines Aged Out No longer eligi ble based on patient's age to complete this topic HPV Vaccines Aged Out No longer eligi ble based on patient's age to complete this topic Hepatitis A Vaccines Aged Out No long er eligible based on patient's age to complete this topic Hepatitis B Vaccines Aged Out No long er eligible based on patient's age to complete this topic IPV Vaccines Aged Out No longer eligi ble based on patient's age to complete this topic Meningococcal Vaccine Aged Out No makenna herve eligible based on patient's age to complete this topic Rotavirus Vaccines Aged Out No longer eligible based on patient's age to complete this topic Insurance AETNA MEDICARE VALUE PLAN
--- OUTSIDE RECORDS SUMMARY | 2025-02-23 18:54 | XMS_ITS ---
Author Organization [facility] Address [address] [place], [place] [id number] Care Team Providers Care Local Operator Name Role Phone Casper Vilchis DO Primary Care Provider + Active Problems Problem Noted Date Diagnosed Date Prostate cancer 06/30/2018 Current Treatment and Therapy Plans No current plan information found. Past Treatment and Therapy Plans No past plan information found. Treatment Summaries Prostate cancer (HCC)* Treatment Summary and Survivorship Care Plan for Prostate Cancer Provided by: Katia Almaguer APRN.CNP General Information Patient Name: Corbin Zendejas Patient : 1945 Patient phone: Email: @[employer] Health Care Providers Primary Care Provider: Dr. Casper Vilchis Urologic Surgeon: Dr. Bora Salcedo Radiation Oncologist: Dr. Mary Carson Other Providers: Katia Almaguer APRN.CNP Treatment Summary Diagnosis Cancer Type: Adenocarcinoma of the Prostate Location: Left apex, right mid, right lateral base Diagnosis Date (year): May 27, 2018 Histology Subtype: Prostate Cancer Stage: I; clinical stage TIc, N0, M0 Davin Score: 3+3 = 6 PSA at Diagnosis: 6.59 Clinical Trial: No Treatment Completed Surgery: Yes Surgery Date(s) (year): May 27, 2019 Surgical procedure/location/findings: Transrectal ultrasound random biopsy; Left apex, right mid and right lateral base; Adenocarcinoma of the prostate External beam radiation: No Brachytherapy to prostate: Yes: End Date (year): August 05, 2018 I-125, 45 agustin, 88 seeds Systemic Therapy (chemotherapy, hormonal therapy, other): Yes Presistent symptoms or side effects at completion of treatment: No Follow-up Care Plan Schedule of clinical visits Coordinating Provider When/How often Dr. Mary Carson Every 6 months ??2 years, then once yearly. Dr. Bora Salcedo Per Dr. Salcedo Cancer surveillance or other recommended related tests Coordinating Provider Test How Often Dr. Mary Carson PSA (Prostate Specific Antigen) Every 6 months ??2 years, then once yearly. Dr. Mary Carson PSA (Prostate Specific Antigen) Per Dr. Salcedo Please continue to see your primary care provider for all general health care recommended for a (man) (women) your age, including cancer screening tests. Any symptoms should be brought to the attention of your provider: 1. Anything that represents a brand new symptom; 2. Anything that represents a persistent symptom; 3. Anything you are worried about that might be related to the cancer coming back. Possible late- and long-term effects that someone with this type of cancer and treatment may experience: Erectile dysfunction, Incontinence, Painful urination, Rectal pain, Shortening of the penis, Sterility, Trouble voiding or passing uring (urinary retention) and Urinary frequency Cancer survivors may experience issues with the areas listed below. If you have any concerns in these or other areas, please speak with your doctors or nurses to find out how you can get help with them: anxiety or depression , emotional or mental health, fatigue, fertility, financial advice or assistance, insurance, memory or concentration loss, parenting, physicial functioning, school/work and sexual functioning A number of lifestyle/behaviors can affect your ongoing health, including the risk for the cancer coming back or developing another cancer. Discuss these recommendations with your doctor or nurse: alcohol use, diet, management of medications, management of other illnesses, physical activity, sun screen use, tobacco use/cessation and weight management (loss/gain) Resources you may be interested in: www.cancer.net [employer] health outreach worker Supervisor Assembly Stock Art Therapy PSA (Prostate Cancer Support Group)- Meets at [address] [place] [address] Daniela Toure. Please contact socialworker for dates and times. Prepared by: Katia Almaguer APRN.HAND BRUSH FILLER Delivered on: March 15, 2019 - This Survivorship Care Plan is a cancer treatment summary and follow-up plan is provided to you to keep with your health care records and to share with your primary care provider. - This summary is a brief record of major aspects of your cancer treatment. You can share your copywith any of your doctors or nurses. However, this is not a detailed or comprehensive record of yourcare.
--- OUTSIDE RECORDS SUMMARY | 2025-02-23 18:54 | XMS_ITS | Encounter Summary ---
Author Organization [facility] Address [address] [place] [address] Phone Care Team Providers Care Envelope Addresser Name Role Phone Unavailable Primary Care Provider Unavailabl e Encounter Details Date Type Department Care Team (Late st Contact Info) Description 01/07/2024 Scanned Document [facility] [address] [place] [address] Scanning, Generic Provider Social History Tobacco Use Types Packs/Day Years Used Date Smoking Tobacco: Never Assessed Sex and Gender Information Value Date Recorded Sex Assigned at Not on file Legal Sex Male 5:45 PM EST Gender Identity Not on file Sexual Orientation Not on file documented as of this encounter Plan of Treatment Not on file documented as of this encounter Procedures Procedure Name Priority Date/Time Associated Diagnosis Comments NUCLEAR STRESS TEST - ONBASE SCAN 01/07/2024 STRESS TEST - ONBASE SCAN 01/07/2024 documented in this encounter Results * Nuclear Stress Test - Onbase Scan (01/07/2024) Narrative 01/07/2024 Ordered by an unspecified provider. us Generic Provider Scanning CV STRESS PROCEDURES F inal Result * Stress Test - Onbase Scan (01/07/2024) Narrative 01/07/2024 Ordered by an unspecified provider. us Generic Provider Scanning CV STRESS PROCEDURES F inal Result documented in this encounter Visit Diagnoses Not on filedocumented in this encounter
--- OUTSIDE RECORDS SUMMARY | 2025-02-23 18:54 | XMS_ITS | Encounter Summary ---
Author Organization [facility] tem Address [facility]-[id number] [address] [place] [address] Care Team Providers Care Day Trader Name Role Phone Casper Vilchis DO Primary Care Provider Destiney chavis Encounter Details Date Type Department Care Team (Latest Contact Info) Description 01/11/2025 Lab Requisition [facility] - Lab [address] [place] [phone] Christopher Sherman MD [address] [place], [place] [phone] intermediate accountant (current) use of anticoagulants Social History Tobacco Use Types Packs/Day Years Used Date Smoking Tobacco: Former Cigarettes 2 2 0 12/07/1977 - 12/08/1979 Smokeless Tobacco: Never Alcohol Use Standard Drinks/Week Comments Not Currently 0 (1 standard drink = 0.6 oz pur e alcohol) [facility] Utilities Answer Date Recorded In the past 12 months has [employer], gas, oil, or water [employer] threatened to shut off services in your [...] got money to buy more. Never True 01/06/2025 Within the past 12 months th e food we bought just didn't last and we didn't have money to get more. Never True 01/06/2025 Purpose - Life Answer Date Recorded Purpose [...] Description 03/02/2025 12:30 PM EDT Follow Up [facility] - Pharmacy Medication Management [address] [place] [address] 03/02/2025 1:00 PM EDT Office Visit [facility] [address] [place] [phone] Casper Swain MD [address] [place] [address] Robert Jade MD [address] [place] [address] 03/14/2025 1:00 PM EDT [facility] [address] [place], [place] [address] [place] [phone] 05/29/2025 11:15 AM EDT Office Visit [facility] [address] [place] [address] Tristan Watson MD [address] [place] [address] documented as of this encounter Goals Goal Patient Goal Type Associated Problems Recent Progress Patient-Stated? Author <enter goal here> General Yes Viola Gamble, RN Note: Evaluation of progress towards goal: patient progressing toward safe discharge home. documented as of this encounter Procedures Procedure Name Priority Date/Time Associated Diagnosis Comments PROTIME & INR Routine 01/11/2025 10:55 AM EDT intermediate accountant (current) use of anticoagulants documented in this encounter Results * (ABNORMAL) Protime & INR (01/11/2025 10:55 AM EDT) PROTIME 46.4(H) 9.8 - 13.2 sec 01/11/2025 1:22 PM EDT [facility] INR 4.1(HH) 0.9 - 1.2 01/11/2025 1:22 PM EDT [facility] Blood Venous blood / Unknown 01/11/2025 10:55 AM EDT 01/11/2025 1:07 PM EDT us Christopher Sherman MD LAB BLOOD ORDERABLES Final Resul t [facility] [address] [place] [address], documented in this encounter Visit Diagnoses Diagnosis intermediate accountant (current) use of anticoagulants Long-term (current) use of anticoagulants documented in this encounter Care Teams Day Trader Relationship Specialty Start Date End Date Casper Vilchis DO PCP - General Family Medicine 11/07/24 Casper Vilchis DO [address] [place] [address] Provider Family Medicine 11/14/24 documented as of this encounter
--- OUTSIDE RECORDS SUMMARY | 2025-02-23 18:54 | XMS_ITS | Encounter Summary ---
Author Organization [facility] Address [facility]-[id number] [address] [place] [address] Care Team Providers Care Tests Superintendent Name Role Phone Casper Vilchis DO Primary Care Provider Destiney chavis Reason for Visit * Reason Onset Date Comments PT Discharge 01/10/2025 Encounter Details Date Type Department Care Team (Late st Contact Info) Description 01/10/[address] [facility] [address] [place] [address] Jesus Blas DO [address] [facility] [place] [address] PT Discharge Social History Tobacco Use Types Packs/Day Years Used Date Smoking Tobacco: Former Cigarettes 2 2 0 12/07/1977 - 12/08/1979 Smokeless Tobacco: Never Alcohol Use Standard Drinks/Week Comments Not Currently 0 (1 standard drink = 0.6 oz pur e alcohol) [facility] Utilities Answer Date Recorded In the past 12 months has [employer], gas, oil, or water [employer] threatened to shut off services in your [...] encounter Miscellaneous Notes * Telephone Encounter - Rosangela Sanchez - 01/10/2025 10:21 AM EDT PER MESSAGE FROM THE 01/09/2025 D/C LIST: PER BCD; PT DCD FROM [facility] DX:Ascending aortic aneurysm status post redo sternotomy Gelweave graft 01/03/2025 Paroxysmal atrial fibrillation': No significant CAD prior to surgery,Mild LV systolic dysfunction/cardiomyopathy, nonischemic.-PT NEEDS TO F/U IN 2 WEEKS-[facility] * Telephone Encounter - Nicolasa Lockett - 01/10/2025 10:21 AM EDT LMOM for the patient to call and schedule their next appointment with [facility]. documented in this encounter Plan of Treatment Upcoming Encounters Date Type Department Care Team (Late st Contact Info) Description 03/02/2025 12:30 PM EDT Follow Up Anticoagulation [facility] - Pharmacy Medication Management [address] [place] [address] 03/02/2025 1:00 PM EDT Office Visit [facility] [address] [place] [phone] Casper Swain MD [address] [place] [phone] Robert Jade MD [address] [place], [place] [phone] 03/14/2025 1:00 PM EDT Ancillary Procedure [facility] [address] [place] [phone] 05/29/2025 11:15 AM EDT Office Visit [facility] [address] [place] [phone] Tristan Watson MD [address] [place], [place] [phone] documented as of this encounter Goals Goal Patient Goal Type Associated Problems Recent Progress Patient-Stated? Author <enter goal here> General Yes Viola Gamble, CINDY Note: Evaluation of progress towards goal: patient progressing toward safe discharge home. documented as of this encounter Visit Diagnoses Not on filedocumented in this encounter Care Teams Tests Superintendent Relationship Specialty Start Date End Date Casper Vilchis DO PCP - General Family Medicine 11/07/24 Casper Vilchis DO [address] [place] [address] Provider Family Medicine 11/14/24 documented as of this encounter
--- OUTSIDE RECORDS SUMMARY | 2025-02-23 18:54 | XMS_ITS | Encounter Summary ---
Author Organization [facility] Address [facility] [place]-[id number] [address] [place] [address] Care Team Providers Care Kraft Mill Operator Name Role Phone Casper Vilchis DO Primary Care Provider Destiney chaivs Reason for Visit * Reason Onset Date Comments Med Refill 02/09/2025 Encounter Details Date Type Department Care Team (Late st Contact Info) Description 02/09/2025 Refill [facility] [address] [place] [phone] Maritza Cage, RN Med Refill Social History Tobacco Use Types Packs/Day Years Used Date Smoking Tobacco: Former Cigarettes 2 2 0 12/07/1977 - 12/08/1979 Smokeless Tobacco: Never Alcohol Use Standard Drinks/Week Comments Not Currently 0 (1 standard drink = 0.6 oz pur e alcohol) [facility] Utilities Answer Date Recorded In [...] 03/02/2025 12:30 PM EDT Follow Up Anticoagulation [facility] - Pharmacy Medication Management [address] [place] [address] 03/02/2025 1:00 PM EDT Office Visit [facility] [address] [place] [phone] Casper Swain MD [address] [facility] [place] [phone] Robert Jade MD [address] [place] [address] 03/14/2025 1:00 PM EDT [facility] [address] [place] [phone] 05/29/2025 11:15 AM EDT Office Visit [facility] [address] [place] [phone] Tristan Watson MD [address] [place] [address] documented as of this encounter Goals Goal Patient Goal Type Associated Problems Recent Progress Patient-Stated? Author <enter goal here> General Yes Viola Gamble, CINDY Note: Evaluation of progress towards goal: patient progressing toward safe discharge home. documented as of this encounter Visit Diagnoses Not on filedocumented in this encounter Care Teams Kraft Mill Operator Relationship Specialty Start Date End Date Casper Vilchis DO PCP - General Family Medicine 11/07/24 Casper Vilchis DO [address] [place] [address] Provider Family Medicine 11/14/24 documented as of this encounter
--- OUTSIDE RECORDS SUMMARY | 2025-02-23 18:54 | XMS_ITS | Clinical Summary ---
Author Organization [facility] Healthcare Address [address] [facility] [place] [address] Care Team Providers Care Glue Mounter Operator Name Role Phone Unavailable Primary Care Provider Unavailabl e Social History Tobacco Use Types Packs/Day Years Used Date Smoking Tobacco: Never Assessed Sex and Gender Information Value Date Recorded Sex Assigned at Not on file Legal Sex Male 6:58 PM EDT Gender Identity Not on file Sexual Orientation Not on file Last Filed Vital Signs Vital Sign Reading Time Taken Comments Blood Pressure - - Pulse - - Temperature - - Respiratory Rate - - Oxygen Saturation - - Inhaled Oxygen Concentration - - Weight 70.8 kg (156 lb) 11/20/2020 12:00 PM EDT Height 175.3 cm (5' 9 ) 11/20/2020 12:00 PM EDT Body Mass Index 23.04 11/20/2020 12:00 PM EDT Plan of Treatment Not on file Insurance [employer] MEDICARE ADVANTAGE
--- OUTSIDE RECORDS SUMMARY | 2025-02-23 18:54 | XMS_ITS | Referral Summary ---
Author Organization [facility] Address [address] [place] [address] Care Team Providers Care Fur Finisher Seamstress Name Role Phone Unavailable Primary Care Provider Unavailabl e Social History Tobacco Use Types Packs/Day Years Used Date Smoking Tobacco: Never Assessed Sex and Gender Information Value Date Recorded Sex Assigned at Not on file Legal Sex Male 12:28 AM EDT Gender Identity Not on file Sexual Orientation Not on file Plan of Treatment Not on file
--- OUTSIDE RECORDS SUMMARY | 2025-02-23 18:54 | XMS_ITS | Encounter Summary ---
Author Organization [employer] Address [facility] [id number] [address] [place] [place] [address] Care Team Providers Care Rip Sawyer Name Role Phone Casper Vilchis DO Primary Care Provider Destiney chavis Encounter Details Date Type Department Care Team (Late st Contact Info) Description 01/10/2021 Telephone [facility] [address] [place] [phone] Jaelyn Mccurdy CMA Social History Tobacco Use Types Packs/Day Years Used Date Smoking Tobacco: Former Cigarettes 2 2 0 12/07/1977 - 12/08/1979 Smokeless Tobacco: Never Alcohol Use Standard Drinks/Week Comments Not Currently 0 (1 standard drink = 0.6 oz pur e alcohol) AUDIT-C Answer Date Recorded Frequency of Alcohol Consumption Never 12/08/2019 Average Number of Drinks Not on file 020 Frequency of Binge Drinking Not on file 10/2019 Childcare Answer Date Recorded Childcare Unknown 02/16/2019 Employment Answer Date Recorded Employment Unknown 02/16/2019 Purpose - Life Answer Date Recorded Purpose and direction in life Unknown Sex and Gender Information Value Date Recorded Sex Assigned at Not on file Legal Sex Male 11:57 AM EDT Gender Identity Not on file Sexual Orientation Not on file COVID-19 Exposure Response Date Recorded In the last month, have you been in contact with someone who was confirmed or suspected to have Coronavirus / COVID-19? No / Unsure 01/11/2021 11:37 AM EDT documented as of this encounter Miscellaneous Notes * Telephone Encounter - Jaelyn Mccurdy CMA - 01/10/2021 9:07 AM EDT Patient is calling about is discomfort level. He says that he had the surgery on the 07 of January. Hewas back in the ER that evening. He is currently experiencing Some swelling in his scrotum area. Hesays while he was in the ER they gave him a catheter to urinate as he was unable to do that as well. And he is very uncomfortable currently. He has no fevers no vomiting he gets chills easily. PleaseAdvise. documented in this encounter Plan of Treatment Upcoming Encounters Date Type Department Care Team (Late st Contact Info) Description 03/02/2025 12:30 PM EDT Follow Up Anticoagulation [facility] - Pharmacy Medication Management [address] [place] [address] 03/02/2025 1:00 PM EDT Office Visit [facility] [address] [place] [phone] Casper Swain MD [address] [facility] [place] [phone] Robert Jade MD [address] [place], [place] [phone] 03/14/2025 1:00 PM EDT Ancillary Procedure [facility] Cardiology [address] [place] [phone] 05/29/2025 11:15 AM EDT Office Visit [facility] [address] [place] [phone] Tristan Watson MD [address] [place] [address] documented as of this encounter Visit Diagnoses Diagnosis S/P inguinal hernia repair- Primary Other postprocedural status documented in this encounter Care Teams Rip Sawyer Relationship Specialty Start Date End Date Casper Vilchis DO PCP - General Family Medicine 11/07/24 Casper Vilchis DO [address] [place] [address] Provider Family Medicine 11/14/24 documented as of this encounter
--- OUTSIDE RECORDS SUMMARY | 2025-02-23 18:54 | XMS_ITS | Encounter Summary ---
Author Organization [employer] Address [id number] [address] [place] [address] Care Team Providers Care Planograph Operator Name Role Phone Casper Vilchis DO Primary Care Provider Destiney chavis Encounter Details Date Type Department Care Team (Late st Contact Info) Description 03/07/2024 Orders Only [facility] [place] [address] Transcribe, Orders Support User Social History Tobacco Use Types Packs/Day Years [...] got money to buy more. Never True 03/27/2023 Within the past 12 months th e food we bought just didn't last and we didn't have money to get more. Never True 03/27/2023 Purpose - Life Answer Date Recorded Purpose [...] 03/02/2025 12:30 PM EDT Follow Up Anticoagulation [facility] - Pharmacy Medication Management [address] [place] [address] 03/02/2025 1:00 PM EDT Office Visit [facility] [address] [place] [phone] Casper Swain MD [address] [place] [phone] Robert Jade MD [address] [place], [place] [phone] 03/14/2025 1:00 PM EDT Ancillary Procedure [facility] [address] [place] [phone] 05/29/2025 11:15 AM EDT Office Visit [facility] [address] [place] [phone] Tristan Watson MD [address] [place] [address] documented as of this encounter Visit Diagnoses Not on filedocumented in this encounter Care Teams Planograph Operator Relationship Specialty Start Date End Date Casper Vilchis DO PCP - General Family Medicine 11/07/24 Casper Vilchis DO [address] [facility] [place] [address] Provider Family Medicine 11/14/24 documented as of this encounter
--- OUTSIDE RECORDS SUMMARY | 2025-02-23 18:54 | XMS_ITS | Clinical Summary ---
Author Organization [facility] Address [address] [place], [place] [id number] Care Team Providers Care Shoe Salesperson Name Role Phone Casper Vilchis DO Primary Care Provider + Allergies No known active allergies Medications warfarin (COUMADIN) 5 mg tablet Take 5 mg by mouth once daily. 3 05/12/2018 Active baclofen (LIORESAL) 20 mg tablet TAKE 1 TABLET BY MOUTH TWICE DAILY WITH FOOD OR MILK NEEDED for spasms 1 04/23/2018 Active LORazepam (ATIVAN) 0.5 mg Take 0.25-0.5 mg by mouth daily at bedtime. 10/01/2020 Active ferrous sulfate 325 mg (65 mg iron) tablet Take 325 mg by mouth at bedtime as needed. Active tamsulosin (FLOMAX) 0.4 mg Take 0.4 mg by mouth twice daily. 10/17/2021 Active metFORMIN ER (GLUCOPHAGE XR) 500 mg 24 hr tablet Take 1 tablet by mouth every 12 hours. 09/13/2024 Active ENTRESTO 24-26 mg tablet Take 0.5 tablets by mouth in the morning and 0.5 tablets before bedtime. Active Active Problems Problem Noted Date Diagnosed Date Prostate cancer 06/30/2018 Family History Medical History Relation Comments Cancer Brother Prostate cancer Cancer Maternal Uncle Cancer Cancer Sister Cancer Relation Status Comments Brother Maternal Uncle Sister Social History Tobacco Use Types Packs/Day Years Used Date Smoking Tobacco: Former Cigarettes 1 10 1 - 06/30/1983 Smokeless Tobacco: Never Alcohol Use Standard Drinks/Week Comments Yes 0 (1 standard drink = 0.6 oz pur e alcohol) occ PHQ-2 Answer Date Recorded PHQ-2 score 0 11/05/2023 Area Deprivation Index Answer Date Jack rded National Score (1-100), lower number is lower ri sk 59 11/05/2023 State Score (1-10), lower number is lower risk 4 11/05/2023 Data from: https://www.neighborhoodatlas.medicine.[facility].edu/. Last address used for calculation [address] 11/05/2023 Sex and Gender Information Value Date Recorded Sex Assigned at Not on file Legal Sex Male 10:55 AM EDT Gender Identity Not on file Sexual Orientation Not on file Last Filed Vital Signs Vital Sign Reading Time Taken Comments Blood Pressure 109/73 11/03/2024 9:58 AM EST Pulse 81 11/03/2024 9:58 AM EST Temperature 36 C (96.8 F) 11/03/2024 9:58 AM EST Respiratory Rate 18 11/03/2024 9:58 AM EST Oxygen Saturation 96% 11/03/2024 9:58 AM EST Inhaled Oxygen Concentration - - Weight 57.5 kg (126 lb 12.2 oz) 11/03/2024 9:58 AM EST Height - - Body Mass Index - - Plan of Treatment Upcoming Encounters Date Type Department Care Team (Late st Contact Info) Description 11/02/2025 10:30 AM EST Office Visit Radiation Oncology [address] [place] [address] Cande Carson MD [address] [place] [address] 1 year follow up Health Maintenance Due Date Last Done Comments Anxiety Screening 12/23/1963 Depression Screening 12/23/1963 DTaP,Tdap,Td Vaccine (1 - Tdap) 1964 Shingrix Vaccine (1 of 2) 12/23/1995 Advance Directive Discussion 09/07/2024 Medicare Advantage Annual Wellness Visit 09/07/2024 Covid-19 Vaccine (2023-2 5 season) 2025 07/07/2024, 07/01/2023, 04/25/2022, Additional history exists Diabetes Screening 12/03/2026 12/04/2023, 0 02/20/2023, 12/26/2020, Additional history exists Pneumococcal Vaccine: 50+ Completed 2018, 06/09/2018, 10/23/2017, Additional history exists Influenza Vaccine Completed 06/30/2024, , 06/19/2022, Additional history exists RSV Vaccine Completed 06/30/2024 Cologuard (FIT-DNA) Discontinued 08/30/2024, 06/03/2021, 05/02/2018 Colorectal Cancer Screening Discontinued CT Colonography Discontinued Colonoscopy Discontinued Fecal Occult Blood Discontinued Sigmoidoscopy Discontinued Insurance [employer] ADVANTAGE O Care Teams Shoe Salesperson Relationship Specialty Start Date End Date Casper Vilchis DO PCP - General Family Medicine 06/16/18
--- OUTSIDE RECORDS SUMMARY | 2025-02-23 18:54 | XMS_ITS | Encounter Summary ---
Author Organization [facility] [email or web address] [facility] Address [id number] [address] [place] [address] Care Team Providers Care Juvenile Correctional Officer Name Role Phone Casper Vilchis DO Primary Care Provider Destiney chavis Encounter Details Date Type Department Care Team (Late st Contact Info) Description 01/10/2025 Lab Requisition [facility] - Lab [address] [place] [phone] Christopher Sherman MD [address] [place], [place] [phone] Coagulation defect, unspecified Social History Tobacco Use Types Packs/Day Years Used Date Smoking Tobacco: Former Cigarettes 2 2 0 12/07/1977 - 12/08/1979 Smokeless Tobacco: Never Alcohol Use Standard Drinks/Week Comments Not Currently 0 (1 standard drink = 0.6 oz pur e alcohol) [facility] Utilities Answer Date Recorded In the past 12 months has [employer], gas, oil, or water [employer] threatened to shut off services in your [...] Description 03/02/2025 12:30 PM EDT Follow Up [facility] - Pharmacy Medication Management [address] [place] [address] 03/02/2025 1:00 PM EDT Office Visit [facility] [address] [place] [address] Casper Swain MD [address] [place] [phone] Robert Jade MD [address] [place] [address] 03/14/2025 1:00 PM EDT [facility]illary [facility] [address] [place], [place] [address] [place] [phone] 05/29/2025 11:15 AM EDT Office Visit [facility] [address] [place] [phone] Tristan Watson MD [address] [place] [address] documented as of this encounter Goals Goal Patient Goal Type Associated Problems Recent Progress Patient-Stated? Author <enter goal here> General Yes Viola Gamble, CINDY Note: Evaluation of progress towards goal: patient progressing toward safe discharge home. documented as of this encounter Procedures Procedure Name Priority Date/Time Associated Diagnosis Comments PROTIME & INR Routine 01/10/2025 12:25 PM EDT Coagulation defect, unspecified documented in this encounter Results * (ABNORMAL) Protime & INR (01/10/2025 12:25 PM EDT) PROTIME 52.0(H) 9.8 - 13.2 sec 01/10/2025 1:23 PM EDT [facility] INR 4.6(HH) 0.9 - 1.2 01/10/2025 1:23 PM EDT [facility] Blood Venous blood / Unknown 01/10/2025 12:25 PM EDT 01/10/2025 12:41 PM EDT us Christopher Sherman MD LAB BLOOD ORDERABLES Final Resul t [facility] [address] [place] [address], documented in this encounter Visit Diagnoses Diagnosis Coagulation defect, unspecified documented in this encounter Care Teams Juvenile Correctional Officer Relationship Specialty Start Date End Date Casper Vilchis DO PCP - General Family Medicine 11/07/24 Casper Vilchis DO [address] [place] [address] Provider Family Medicine 11/14/24 documented as of this encounter
--- OUTSIDE RECORDS SUMMARY | 2025-02-23 18:54 | XMS_ITS | Encounter Summary ---
Author Organization [facility] Address [address] [place] [address] Phone Care Team Providers Care Group Social Worker Name Role Phone Unavailable Primary Care Provider Unavailabl e Encounter Details Date Type Department Care Team (Late st Contact Info) Description 01/05/2024 Scanned Document [facility] [address] [place] [address] Scanning, Generic Provider Social History [...] Procedure Name Priority Date/Time Associated Diagnosis Comments ECHOCARDIOGRAM 01/05/2024 documented in this encounter Results * Echocardiogram (01/05/2024) Narrative 01/05/2024 Ordered by an unspecified provider. us Generic Provider Scanning CV ECHO PROCEDURES Fin al Result documented in this encounter Visit Diagnoses Not on filedocumented in this encounter
--- OUTSIDE RECORDS SUMMARY | 2025-02-23 18:54 | XMS_ITS | Clinical Summary ---
Author Organization [facility] Address [address] [place] [address] Care Team Providers Care Vegetable Sorter Name Role Phone Unavailable Primary Care Provider [...]
--- OUTSIDE RECORDS SUMMARY | 2025-02-23 18:55 | XMS_ITS | CCD ---
Author Organization [facility] CliniSyor Care Team Providers Care Vest Busheler Name Role Phone REQUEST, DR FORD LISTED [...] Villeda Unavailable BOOKER VILLEDA Primary Care Physician Booker Villeda DO Primary Care Provider Booker Villeda DO Primary Care Provider BOOKER VILLEDA Primary Care Physician [phone] DO Booker Villeda Primary Care Provider DO Zeferino Parks Emergency Provider [phone] MD Liu Ferraro Admit Provider MD Liu Ferraro Attending Provider DO Booker Villeda Primary Care Provider DO Zeferino Parks Emergency Provider MD Liu Ferraro Admit Provider DO Anton Mirza Attending Provider MERCY Maza Attending Provider Ronal MEIER, Booker Jose Primary Care Provider Unavai labdaniel Villeda DO, Booker Jose Primary Care Provider Ronal MEIER, Booker Friend Primary Care Provider BOOKER VILLEDA Primary Care Unavailabl Cande Gregg Attending Unavailable RONAL, BOOKER FRIEND Primary Care Unavailabl e Ronal DO, Booker R Primary Care Provider Unavai labdaniel Villeda DO, Booker Jose Primary Care Provider Pamela Ulloa MD Attending Provider MARJ SOMERS Attending Unavailable MARJ SOMERS Attending Unavailable MARJ SOMERS Attending Unavailable Zeferino CHARLES Admitting Unavailable Zeferino CHARLES Attending Unavailable Zeferino CHARLES Referring Unavailable Villeda , Booker R Primary Care Provider Unavai lable RONAL, BOOKER R Referring Unavailable VILLEDA, BOOKER R Primary Care Unavailable VILLEDA, BOOKER R Referring Unavailable VILLEDA, BOOKER R Primary Care Unavailable MARCO, KO Haddad Referring Unavailab le VILLEDA, BOOKER R Primary Care Unavailable VIVIAN GEE Attending Unavailable VILLEDA, BOOKER R Referring Unavailable VILLEDA, BOOKER R Primary Care Unavailable MARCO, KO Haddad Attending Unavailab NIXON Kapoor Referring Unavailable VILLEDA, BOOKER R Primary Care Unavailable MARCO, KO Haddad Referring Unavailab le VILLEDA, BOOKER R Primary Care Unavailable MARCO, KO Haddad Referring Unavailab le VILLEDA, BOOKER R Primary Care Unavailable MARCO, KO Haddad Admitting Unavailab le MARCO, KO Haddad Attending Unavailab le VILLEDA, BOOKER R Primary Care Unavailable BEBE TAYLOR Consulting GEORGINA Quintana Consulting Unavailable VILLEDA, BOOKER R Referring Unavailable VILLEDA, BOOKER R Primary Care Unavailable RANDA TATE Attending Unavailable POLO LU Referring Unavailable VILLEDA, BOOKER R Primary Care Unavailable Asaad, Imad Attending Unavailable Villeda, Booker R Primary Care Unavailable Asaad, Imad Admitting Unavailable Villeda, Booker R Admitting Unavailable Villeda, Booker R Primary Care Unavailable Villeda, Booker R Attending Unavailable Villeda, Booker R Admitting Unavailable Villeda, Booker R Primary Care Unavailable Villeda, Booker R Attending Unavailable SERVICE, JOBST Referring Unavailable VILLEDA, BOOKER R Primary Care Unavailable BEBE TAYLOR Attending Unavailable VILLEDA, BOOKER R Referring Unavailable VILLEDA, BOOKER R Primary Care Unavailable SERVICE, JOBST Referring Unavailable VILLEDA, BOOKER R Primary Care Unavailable SERVICE, JOBST Referring Unavailable VILLEDA, BOOKER R Primary Care Unavailable SERVICE, JOBST Referring Unavailable VILLEDA, BOOKER R Primary Care Unavailable SERVICE, JOBST Referring Unavailable VILLEDA, BOOKER R Primary Care Unavailable SERVICE, JOBST Referring Unavailable VILLEDA, BOOKER R Primary Care Unavailable SERVICE, JOBST Referring Unavailable VILLEDA, BOOKER R Primary Care Unavailable BEBE TAYLOR Attending Unavailable VILLEDA, BOOKER R Referring Unavailable VILLEDA, BOOKER R Primary Care Unavailable SERVICE, JOBST Referring Unavailable VILLEDA, BOOKER R Primary Care Unavailable SERVICE, JOBST Referring Unavailable VILLEDA, BOOKER R Primary Care Unavailable SERVICE, JOBST Referring Unavailable VILLEDA, BOOKER R Primary Care Unavailable MEDICATION MANAGEMENT, [facility] Referr ing Unavailable VILLEDA, BOOKER R Primary Care Unavailable MEDICATION MANAGEMENT, [facility] Referr ing Unavailable VILLEDA, BOOKER R Primary Care Unavailable ISABEL MAZA Referring Unavailable VILLEDA, BOOKER R Primary Care Unavailable MEDICATION MANAGEMENT, [facility] Referr ing Unavailable VILLEDA, BOOKER R Primary Care Unavailable MICI, NIXON Attending Unavailable VILLEDA, BOOKER R Referring Unavailable VILLEDA, BOOKER R Primary Care Unavailable MICI, NIXON Referring Unavailable VILLEDA, BOOKER R Primary Care Unavailable MICI, NIXON Attending Unavailable MICI, NIXON Referring Unavailable VILLEDA, BOOKER R Primary Care Unavailable MICI, NIXON Attending Unavailable MICI, NIXON Referring Unavailable VILLEDA, BOOKER R Primary Care Unavailable MEDICATION MANAGEMENT, [facility] Referr ing Unavailable VILLEDA, BOOKER R Primary Care Unavailable MEDICATION MANAGEMENT, [facility] Referr ing Unavailable VILLEDA, BOOKER R Primary Care Unavailable CHRISTINA SHERMAN Attending Unavailable VILLEDA, BOOKER R Primary Care Unavailable CHRISTINA SHERMAN Attending Unavailable BOOKER VILLEDA Primary Care Unavailable VIVIAN GEE Referring Unavailable BOOKER VILLEAD Primary Care Unavailable BOOKER VILLEDA Referring Unavailable BOOKER VILLEDA Primary Care Unavailable MEDICATION MANAGEMENT, [facility] Referr ing Unavailable BOOKER VILLEDA Primary Care Unavailable Allergies Allergy Classification Reported Allergen(s) Allergy Type Date of Onset Reaction(s) Facility (2 sources) tamsulosin; Translations: [tamsulosin] Drug Allergy Weal (disorder), Unknown (qualifier value) [facility] Daniela (1 source) No Known Medication Allergies; Translations: [No Known Medication Allergies] Propensity to adverse reactions (disorder) [facility] Repository Medications Current Medications Medication Drug Class(es) Dates Sig (Normalized) Sig (Original) acetaminophen 500 mg oral tablet (20 sources) Start: 01-05-2024 take 2 tablets by mouth every six hours as needed for pain Acetaminophen (Tylenol Extra Strength) 500 mg tablet Active 1000 MG PO Every 6 hours as needed for pain January 05, 2024 12:00am Start: 01-13-2020 take [...] every 4 (four) hours as needed. Active amiodarone hydrochloride 200 mg oral tablet (14 sources) Antiarrhythmic Start: 02-09-2025 take 1 tablet by mouth in the morning amiodarone (PACERONE) 200 mg tablet Take 1 tablet (200 mg total) by mouth in the morning. 30 tablet 2 02/09/2025 Active Start: 01-09-2025 End: 02-10-2025 take 2 tablets by mouth twice daily, then take 1 tablet by mouth once daily amiodarone (PACERONE) 200 mg tablet Take 2 tablets (400 mg total) by mouth 2 (two) times a day for 2 days, THEN 1 tablet (200 mg total) daily for 30 days. 38 tablet 01/09/2025 02/09/2025 Discontinued (Reorder) amoxicillin 875 mg / clavulanate 125 mg oral tablet (3 sources) Penicillin-class Antibacterial Start: 06-21-2021 take 1 tablet by mouth every twelve hours Amoxicillin-Pot Clavulanate 875-125 MG 1 tablet Orally every 12 hrs for 7 day(s) Jun, Active aspirin 81 mg delayed release oral tablet (13 sources) Platelet Aggregation Inhibitor, Nonsteroidal Anti-inflammatory Drug Start: 01-09-2025 take 1 tablet by mouth in the morning aspirin 81 mg Take 1 tablet (81 mg total) by mouth in the morning. 30 tablet 1 01/09/2025 Active baclofen 20 mg oral tablet (20 sources) gamma-Aminobutyric Acid-ergic Agonist Start: 07-23-2018 take 10 mg by mouth twice daily as needed for muscle spasms Baclofen 20 mg tablet Active 10 MG PO Twice daily as needed for muscle spasm July 23, 2018 1:00am Start: 07-23-2018 take 10 mg by mouth twice savanna y Baclofen Active 10 MG PO Twice daily July 23, 2018 1:00am Start: 04-23-2018 take 1 tablet by rach th twice daily at mealtime as needed for muscle spasms baclofen (LIORESAL) 20 mg tablet TAKE 1 TABLET BY MOUTH TWICE DAILY WITH FOOD OR MILK NEEDED for spasms 1 04/23/2018 Active Comment on above: TAKE 1 TABLET BY RACH TH TWICE DAILY WITH FOOD OR MILK NEEDED for spasms blood pressure monitor (BLOOD PRESSURE KIT) kit (1 source) Start: 03-21-20 End: 03-21-20 blood pressure monitor (BLOOD PRESSURE KIT) kit 1 Unit by miscellaneous route once for 1 dose. 1 each 03/21/2024 03/21/2024 Active Blood-Glucose Meter (Onetouch Ultra2 Meter) [facility] (6 sources) Start: 02-17-20 Blood-Glucose Meter (Onetouch Ultra2 Meter) [facility] Active EACH .ROUTE .MEDSUPPLY February 17, 2024 12:00am As directed docusate sodium 50 mg / sennosides, half-way 8.6 mg oral tablet (5 sources) Start: 01-10-20 End: 01-24-20 take 1 tablet by mouth in the morning sennosides-docusate sodium (SENOKOT-S) 8.6-50 mg Take 1 tablet by mouth in the morning and 1 tablet before bedtime. Do all this for 14 days. 28 tablet 01/09/2025 01/23/2025 Active empagliflozin 10 mg oral tablet (20 sources) Sodium-Glucose Cotransporter 2 Inhibitor Start: 06-01-20 End: 09-01-20 take 1 tablet by mouth once daily Empagliflozin (Jardiance) 10 mg tablet Active 0 .ROUTE .COMPLEX 90 September 01, 2024 2:48pm TAKE 1 TABLET BY MOUTH DAILY Start: 01-27-2024 End: 11-14-2024 take 1 tablet by mouth in the morning empagliflozin (JARDIANCE) 10 mg tablet tablet Take 1 tablet (10 mg total) by mouth in the morning. 90 tablet 3 11/14/2024 Active 0.8 ml enoxaparin sodium 100 mg/ml prefilled syringe (11 sources) Low Molecular Weight Heparin Start: 12-18-2020 End: 03-21-2024 inject 0.7 mL by subcutaneous injection once enoxaparin (LOVENOX) 80 mg/0.8 mL syringe Indications: jail (current) use of anticoagulants , H/O mechanical aortic valve replacement Inject 0.7 mL (70 mg total) under the skin every 12 (twelve) hours. As directed by Michelet DOS SANTOS 4 mL 12/18/2020 03/21/2024 Discontinued ferrous sulfate 325 mg oral tablet (20 sources) Start: 11-13-2023 take 1 tablet by mouth once daily Ferrous Sulfate 325 mg (65 mg iron) tablet Active 325 MG PO Daily November 13, 2023 1:00am FreeTextSi tablet Orally one time per week; Note: Source Status: TakingPRN; Provider: Ronal Shirley ( ) take 1 tablet by rach th at bedtime as needed ferrous sulfate 325 mg (65 mg iron) tablet Take 325 mg by mouth at bedtime as needed. 0 Active take 1 tablet by rach th every week as needed Ferrous Sulfate [...] dose nasal spray (20 sources) Corticosteroid Start: take 1 spray(s) nasal route once daily as needed Fluticasone Propionate 50 mcg/actuation spray,suspension Active 1 SPRAY INTRANASAL Daily as needed for allergy symptoms November 13, 2023 1:00am FreeTextSi spray in each nostril Nasally Once a day; Note: Source Status: TakingPRN; Refills: 5; Provider: Ronal Shirley Start: 10-25-2018 take 1 spray(s) nasa l route once daily as needed Fluticasone Propionate 50 MCG/ACT 1 spray in each nostril Nasally Once a day for 30 day(s) PRN Oct, Active furosemide 20 mg oral tablet (6 sources) Loop Diuretic Start: 01-16-2025 End: 01-23-2025 take 1 tablet by mouth once daily furosemide (LASIX) 20 mg tablet Indications: S/P aortic aneurysm repair Take 1 tablet (20 mg total) by mouth daily for 7 doses. 7 tablet 01/16/2025 01/23/2025 Active Start: 01-11-2025 End: 01-20-2025 take 1 tablet by mouth every other day furosemide (LASIX) 20 mg tablet Take 1 tablet (20 mg total) by mouth every other day for 5 doses. 5 tablet 01/11/2025 01/16/2025 Discontinued Handicap placards as directe d (19 sources) Start: 04-27-2020 Handicap placa rds as directed as directed as directed as directed Apr, Active isopropyl alcohol 0.7 ml/ml medicated pad (20 sources) Start: 11-20-2024 BD ALCOHOL SWA BS pads, medicated use twice daily 11/20/2024 Active Start: 01-07-2024 End: 09-23-2024 Alcohol Swabs pads, medicate d Discontinued 1 PAD TOPICAL Twice daily 100 September 19, 2024 5:47pm September 23, 2024 1:32pm 24 hr metFORMIN hydrochloride 500 mg extended release oral tablet (20 sources) Biguanide Start: 09-13-2024 take 1 tablet by mouth every twelve hours metFORMIN ER (GLUCOPHAGE XR) 500 mg 24 hr tablet Take 1 tablet by mouth every 12 hours. 09/13/2024 Active Start: 02-17-2024 End: 09-01-2024 take 1 tablet by mouth twice daily Metformin 500 mg tablet extended release 24 hr Active 500 MG PO Twice daily 180 September 01, 2024 2:48pm Start: 02-16-2024 MetFORMIN (Eqv -Glucophage XR) 500 mg oral tablet, extended release Refills(s) 0 Start Date: 02/16/24 Status: Ordered Start: 01-14-2024 End: 02-17-2024 take 1 tablet by mouth once daily Metformin 500 mg tablet extended release 24 hr Discontinued 500 MG PO Daily 90 January 14, 2024 12:00am February 17, 2024 5:21pm take 1 tablet by rach every twenty-four hours in the morning, then take 1 tablet by mouth at mealtime metFORMIN XR (GLUCOPHAGE XR) 500 mg 24 hr tablet Take 1 tablet (500 mg total) by mouth in the morning and 1 tablet (500 mg total) in the evening. Take with meals. Active metoprolol tartrate 25 mg oral tablet (20 sources) beta-Adrenergic Kemi Start: 01-09-2025 take 1 tablet by mouth once metoprolol tartrate (LOPRESSOR) 25 mg tablet Take 1 tablet (25 mg total) by mouth every 12 (twelve) hours. 60 tablet 1 01/09/2025 Active Start: 12-12-2024 End: 01-09-2025 metoprolol tartrate (LOPRESS OR) 25 mg tablet Indications: Aneurysm of ascending aorta without rupture Take half a tablet the morning of surgery with a small sip of water 1 tablet 12/12/2024 01/09/2025 Discontinued (Stop Taking at Discharge) Start: 04-15-2024 take 2 tablets by mo [facility] once daily Metoprolol Succinate 25 mg tablet extended release 24 hr Active 12.5 MG PO Daily April 15, 2024 10:11am Start: 04-15-2024 take 12.5 mg by mout h once daily Metoprolol Succinate Active 12.5 MG PO Daily April 15, 2024 10:11am Start: 03-21-2024 End: 01-09-2025 take 0.5 tablet by mouth every twenty-four hours in the morning metoprolol succinate XL (TOPROL XL) 25 mg 24 hr tablet Take 0.5 tablets (12.5 mg total) by mouth in the morning. 45 tablet 3 09/12/2024 01/09/2025 Discontinued (Stop Taking at Discharge) Start: 01-08-2024 End: 04-15-2024 take 1 tablet by mouth once daily Metoprolol Succinate 25 mg Tablet Extended Release 24 Hr Discontinued 25 MG PO Daily January 08, 2024 12:00am April 15, 2024 10:11am End: 03-21-2024 take 1 tablet by mouth every twenty-four hours in the morning metoprolol succinate XL (TOPROL XL) 25 mg 24 hr tablet Take 1 tablet (25 mg total) by mouth in the morning. 03/21/2024 Discontinued (Reorder) MiraLax oral powder for reconstitution (2 sources) Start: 01-28-2020 MiraLax oral powder for reconstitution 17 gram, Oral, Daily, 527 gram, Refill(s) 0, dissolve in water before taking Start Date: 01/28/20 Status: Ordered Multiple Vitamin (19 sources) Multiple Vitamin as directed Orally Active Multivitamin (Multiple Vitamins) tablet (10 sources) Start: 11-13-2023 take 1 tablet by mouth once daily Multivitamin (Multiple Vitamins) tablet Active 1 TAB PO Daily November 13, 2023 1:00am Nystatin / Triamcinolone (4 sources) Polyene Antifungal, Corticosteroid Start: 12-01-2019 nystatin-triamcinol one topical cream 1 charlie, Topical, Daily, 30 gram, Refill(s) 0, apply lightly at night, [facility] 175, cm, 11/15/19 14:30:00 EDT, Height/Length Measured, 77.3, kg, 11/15/19 14:30:00 EDT, Weight Measured Start Date: 12/01/19 Status: Ordered Start: 12-01-2019 nystatin-triam cinolone topical cream 1 charlie, Topical, Daily, 30 gram, Refill(s) 0, apply lightly at night, [facility] 175, cm, 11/15/19 14:30:00 EDT, Height/Length Measured, 77.3, kg, 11/15/19 14:30:00 EDT, Weight Measured Start Date: 12/01/19 Status: Ordered oxyCODONE hydrochloride 5 mg oral tablet (4 sources) Opioid Agonist Start: 01-09-2025 End: 01-16-2025 take 1 tablet by mouth every eight hours as needed for pain oxyCODONE (ROXICODONE) 5 mg immediate release tablet Indications: S/P ascending aortic aneurysm repair Take 1 tablet (5 mg total) by mouth every 8 (eight) hours as needed ([id number]-[id number] surgical pain (scale 5-10), otherwise take only Tylenol for lesser pain) for up to 7 days. Max Daily Amount: 15 mg 21 tablet 01/09/2025 01/16/2025 Active pantoprazole 40 mg delayed release oral tablet (13 sources) Proton Pump Inhibitor Start: 01-09-2025 take 1 tablet by mouth in the morning pantoprazole (PROTONIX) 40 mg EC tablet Take 1 tablet (40 mg total) by mouth in the morning. 30 tablet 01/09/2025 Active polyethylene glycol 3350 64825 mg powder for oral solution (2 sources) Osmotic Laxative Start: 01-28-2020 MiraLax oral powder for reconstitution 17 gram, Oral, Daily, 527 gram, Refill(s) 0, dissolve in water before taking Start Date: 01/28/20 Status: Ordered microencapsulated potassium chloride 10 meq extended release oral tablet (5 sources) Start: 01-11-2025 End: 01-20-2025 take 1 tablet by mouth every other day, then take 1 tablet by mouth every other day potassium chloride (KLOR-CON M 10) 10 MEQ CR tablet Take 1 tablet (10 mEq total) by mouth every other day for 5 doses. Take this every other day, on the same days you take furosemide. 5 tablet 01/11/2025 01/20/2025 Active sacubitril 24 mg / valsartan 26 mg oral tablet (20 sources) Angiotensin 2 Receptor Kemi Start: 03-21-2024 End: 11-14-2024 take 0.5 tablet by mouth in the morning sacubitriL-valsartan (ENTRESTO) 24-26 mg tablet Take 0.5 tablets by mouth in the morning and 0.5 tablets before bedtime. 90 tablet 3 11/14/2024 Active Start: 02-16-2024 End: 03-21-2024 Entresto 49 mg-51 mg oral ta blet Refill(s) 0 Start Date: 02/16/24 Status: Ordered Start: 01-27-2024 take 1 tablet by rach th twice daily Sacubitril-Valsartan (Entresto) 49-51 mg tablet Active 1 TAB PO Twice daily 60 January 27, 2024 12:00am Start: 01-08-2024 End: 01-27-2024 take 1 tablet by mouth twice daily Sacubitril-Valsartan (Entresto) 24-26 mg Tablet Discontinued 1 TAB PO Twice daily 60 January 08, 2024 12:00am January 27, 2024 10:56am sertraline 25 mg oral tablet (3 sources) Serotonin Reuptake Inhibitor Start: 04-18-2024 take 1 tablet by mouth once daily Sertraline 25 mg tablet Active 25 MG PO Daily 90 April 18, 2024 12:00am spironolactone 25 mg oral tablet (5 sources) Aldosterone Antagonist Start: 02-02-2025 take 0.5 tablet by mouth in the morning spironolactone (ALDACTONE) 25 mg tablet Indications: Chronic systolic heart failure (CMS-HCC) Take 0.5 tablets (12.5 mg total) by mouth in the morning. 30 tablet 6 02/02/2025 Active starch, thickening, (INSTANT FOOD THICKENER) powder (13 sources) Start: 01-09-2025 starch, thickening, (INSTANT FOOD THICKENER) powder Take 1 Dose by mouth 4 (four) times a day with meals and nightly. Take as directed by the packaging. Add to all beverages to establish Level 3 moderate thickness (honey-like thickness). Do not use straws. Do this until re-evaluated by speech pathology. 850 g 01/09/2025 Active tadalafil 20 mg oral tablet (20 sources) Phosphodiesterase 5 Inhibitor Start: 01-05-2024 End: 06-21-2024 take 1 tablet by mouth once daily as needed Tadalafil 20 mg tablet Active 20 MG PO Daily as needed for sexual activity January 05, 2024 12:00am Start: 11-13-2023 End: 01-05-2024 Tadalafil 10 mg tablet Disco ntinued 10 MG PO . NEEDED November 13, 2023 1:00am January 05, 2024 5:36pm FreeTextSi tablet as needed Orally; Note: Source Status: TakingPRN; Provider: Dr. Forbes Start: 09-15-2023 tadalafil 20 m g Tab See Instructions, Take 1 tablet only as needed for erections, # 30 tab(s), Refills(s) 3, Pharmacy: [id number], 177, cm, 11/17/22 10:52:00 EDT, Height/Length Dosing, 73.2, kg, 11/17/22 10:52:00 EDT, Weight Dosing Start Date: 09/15/23 Status: Ordered Start: 11-17-2022 tadalafil 20 m g Tab See Instructions, Take 1 tablet only as needed for erections, # 30 tab(s), Refills(s) 3, Pharmacy: [id number], 177, cm, 11/17/22 10:52:00 EDT, Height/Length Dosing, 73.2, kg, 11/17/22 10:52:00 EDT, Weight Dosing Start Date: 11/17/22 Status: Ordered Start: 04-07-2022 take 1 tablet by rach th every twenty-four hours tadalafil 10 mg Tab 10 mg = 1 tab(s), Oral, As Directed, PRN for erectile dysfunction, Take 1 tab by mouth 1 hr prior to sexual activity as needed. Don't exceed 1 tab in a 24 hr period., # 30 tab(s), Refills(s) 0, Pharmacy: [id number], 177, cm, 07/14/22... Start Date: 10/09/22 Status: Ordered warfarin sodium 1 mg oral tablet (20 sources) Vitamin K Antagonist Start: 01-10-2025 take 1 tablet by mouth in the evening warfarin (COUMADIN) 1 mg tablet Take 1 tablet (1 mg total) by mouth in the evening. 60 tablet 01/10/2025 Active Start: 06-28-2024 take 1 tablet by rach th once daily, then take 0.5 tablet by mouth once daily Warfarin 5 mg tablet Active 0 .ROUTE .COMPLEX 90 June 28, 2024 7:44am USE DIRECTED; TAKE 1 TABLET BY MOUTH EVERY DAY except THURSDAY, on THURSDAY TAKE 1/2 (ONE-HALF) OF A TABLET DAILY Start: 01-13-2020 warfarin 5 mg Tab 2.5 mg = 0.5 tab(s), Oral, Thursday, Refills(s) 0, Blood Thinner Start Date: 01/13/20 Status: Ordered Start: 01-13-2020 warfarin 5 mg Tab 7.5 mg = 1.5 tab(s), Oral, , Refills(s) 0, Blood Thinner Start Date: 01/13/20 Status: Ordered Start: 05-12-2018 End: 01-09-2025 take 1-1.5 tablets by mouth in the evening warfarin (COUMADIN) 5 mg tablet Take 1-1.5 tablets (5-7.5 mg total) by mouth in the evening. 10/14/2019 01/09/2025 Discontinued (Stop Taking at Discharge) Comment on above: Take 5 mg by mouth o nce daily. Completed/Discontinued Medications Medication Drug Class(es) Dates Sig (Normalized) Sig (Original) [id number] 200 actuat albuterol 0.09 mg/actuat metered dose inhaler (20 sources) beta2-Adrenergic Agonist Start: 11-13-2023 End: 02-17-2024 take 1 puff(s) by inhalation every four hours as needed for wheezing Albuterol Sulfate 90 mcg/actuation HFA aerosol inhaler Discontinued 1 PUFF INHALATION Every 4 hours as needed for shortness of breath or wheezing November 13, 2023 1:00am February 17, 2024 11:11am FreeTextSi puff as needed Inhalation every 4 hrs; Note: Source Status: Taking; Refills: 1; Provider: Ronal Jose take 1 puff(s) by in halation every four hours as needed Albuterol Sulfate HFA 108 (90 Base) MCG/ACT 1 puff as needed Inhalation every 4 hrs Active take 1 puff(s) by in halation every four hours as needed Albuterol Sulfate HFA 108 (90 Base) MCG/ACT 1 puff as needed Inhalation every 4 hrs Active Blood Sugar Diagnostic (8 sources) Start: 01-07-2024 End: 02-17-2024 Blood Sugar Diagnostic Disco ntinued STRIP January 07, 2024 12:00am February 17, 2024 11:13am glucose checks twice daily Start: 01-07-2024 Blood Sugar Di agnostic Active STRIP January 07, 2024 12:00am glucose checks twice daily Blood-Glucose Meter (8 sources) Start: 01-07-2024 End: 02-17-2024 Blood-Glucose Meter Disconti nued KIT January 07, 2024 12:00am February 17, 2024 11:13am As Directed Start: 01-07-2024 Blood-Glucose Meter Active KIT January 07, 2024 12:00am As Directed Blood-Glucose Meter kit (1 source) Start: 01-07-2024 End: 02-17-2024 Blood-Glucose Meter kit Discontinued KIT January 07, 2024 12:00am February 17, 2024 11:13am As Directed camphor 40 mg/ml / menthol 100 mg/ml / methyl salicylate 300 mg/ml topical cream (20 sources) End: 01-09-2025 camphor-methyl salicyl-menthoL 4-30-10 % cream Apply topically as needed. MONE JOSÉ 01/09/2025 Discontinued (Stop Taking at Discharge) cephalexin 500 mg oral capsule (3 sources) Cephalosporin Antibacterial Start: 02-16-2024 Keflex 500 mg Cap 500 mg = 1 cap(s), Oral, As Directed, Pt to take 1 tab the day before procedure and the 2nd tab the day of procedure once completed., # 2 cap(s), Refills(s) 0, Pharmacy: [id number], 177, cm, 02/16/24 14:01:00 EDT, Height/Length Dosing, 63.7, kg, 02/16/24 14:01:00 EDT, Weight Dosing Start Date: 02/16/24 Status: Ordered ibuprofen 800 mg oral tablet (20 sources) Nonsteroidal Anti-inflammatory Drug Start: 01-10-2021 End: 01-09-2025 take 1 tablet by mouth every eight hours as needed for pain ibuprofen (ADVIL,MOTRIN) 800 mg tablet Take 1 tablet (800 mg total) by mouth every 8 (eight) hours as needed for pain. 30 tablet 01/10/2021 01/09/2025 Discontinued (Stop Taking at Discharge) LORazepam 0.5 mg oral tablet (20 sources) Benzodiazepine Start: 12-27-2019 End: 01-09-2025 take 1 tablet by mouth once daily as needed for anxiety Lorazepam 0.5 mg tablet Discontinued 0.5 MG PO Daily as needed for anxiety 30 November 13, 2023 11:46am February 02, 2024 3:45pm Comment on above: Take 0.25-0.5 mg by mouth daily at bedtime. multivitamin/iron/f olic acid (CENTRUM COMPLETE ORAL) (20 sources) End: 01-09-2025 multivitamin/iron/ folic acid (CENTRUM COMPLETE ORAL) Take by mouth daily with breakfast. 01/09/2025 Discontinued (Stop Taking at Discharge) multivitamin/iro n/folic acid (CENTRUM COMPLETE ORAL) Take by mouth daily with breakfast. Suspended multivitamin/iro n/folic acid (CENTRUM COMPLETE ORAL) Take by mouth daily with breakfast. Active multivitamin/iro n/folic acid (CENTRUM COMPLETE ORAL) Take by mouth daily with breakfast. 0 Active mupirocin 0.02 mg/mg topical ointment (5 sources) RNA Synthetase Inhibitor Antibacterial Start: 12-12-2024 End: 01-09-2025 apply 15 g nasal route twice daily mupirocin (BACTROBAN) 2 % ointment Indications: Aneurysm of ascending aorta without rupture Using qtip, swab a small amount inside each nostril twice a day, starting one week prior to surgery 15 g 12/12/2024 01/09/2025 Discontinued (Stop Taking at Discharge) 24 hr niacin 1000 mg extended release oral tablet (20 sources) Nicotinic Acid Start: 11-13-2023 End: 01-05-2024 take 1 tablet by mouth twice daily Niacin 1,000 mg tablet extended release 24 hr Discontinued 1000 MG PO Twice daily November 13, 2023 1:00am January 05, 2024 5:36pm End: 03-21-2024 take 1 tablet by mouth once daily at breakfast niacin (VITAMIN B3) 500 mg tablet Take 1 tablet (500 mg total) by mouth daily with breakfast. 03/21/2024 Discontinued take 1 tablet by rach th twice daily Niacin 1000 MG 1 tablet Orally twice a day Active Prosta Response (10 sources) Start: 07-23-2018 End: 01-05-2024 Prosta Response Discontinued July 23, 2018 1:00am January 05, 2024 5:37pm tamsulosin hydrochloride 0.4 mg oral capsule (20 sources) alpha-Adrenerg ic Kemi Start: 04-07-2022 End: 07-22-2024 take 1 capsule by mouth once daily Tamsulosin 0.4 mg capsule Discontinued 0.4 MG PO Daily January 05, 2024 12:00am March 07, 2024 1:27pm Start: 10-17-2021 End: 03-16-2025 take 0.4 mg by mouth twice daily tamsulosin (FLOMAX) 0.4 mg Take 0.4 mg by mouth twice daily. 10/17/2021 Active Comment on above: Take 0.4 mg by mouth twice daily. terazosin 5 mg oral capsule (20 sources) alpha-Adrenergic Kemi Start: 11-13-2023 End: 01-05-2024 take 1 capsule by mouth once daily at bedtime Terazosin 5 mg capsule Discontinued 5 MG PO Daily at bedtime November 13, 2023 1:00am January 05, 2024 5:35pm FreeTextSi capsule at bedtime Orally Once a day; Note: Source Status: Taking; Provider: urology take 1 capsule by [facility] every twenty-four hours Terazosin HCl 5 MG 1 capsule at bedtime Orally Once a day Active TESTOSTERONE, BULK, MISC (20 sources) End: 06-21-2024 TESTOSTERONE, BULK, MISC by miscellaneous route as needed. 06/21/2024 Discontinued TESTOSTERONE, BU LK, MISC by miscellaneous route as needed. Active TESTOSTERONE, BU LK, MISC by miscellaneous route as needed. 0 Active Triamcinolone (13 sources) Corticosteroid Start: 04-18-2015 KENALOG - 10 m g Apr, 40 mg valACYclovir (2 sources) Herpesvirus Nucleoside Analog DNA Polymerase Inhibitor, Herpes Simplex Virus Nucleoside Analog DNA Polymerase Inhibitor, Herpes Zoster Virus Nucleoside Analog DNA Polymerase Inhibitor Start: 07-22-2024 End: 09-01-2024 take 1 tablet by mouth every eight hours Valacyclovir 1 gram tablet Discontinued 0 .ROUTE .COMPLEX July 22, 2024 8:46am September 01, 2024 2:15pm TAKE 1 TABLET BY MOUTH EVERY 8 HOURS Start: 07-11-2024 End: 07-22-2024 Valacyclovir 1 gram tablet D iscontinued 1000 MG PO Every 8 hours 27 03July 11, 2024 1:00am July 22, 2024 8:46am Virility For Men (10 sources) Start: 07-23-2018 End: 01-05-2024 Virility For Men Discontinue d July 23, 2018 1:00am January 05, 2024 5:38pm Problems Active Problems Problem Classification Problem Date Documented Da te Episodic/Chronic Anxiety disorders (20 sources) Generalized anxiety disorder; Translations: [Generalized anxiety disorder] Onset: 06-25-2021 Resolved: 03-25-2022 Chronic Aortic; peripheral; and visceral artery aneurysms (20 sources) Thoracic aortic aneurysm, without rupture; Translations: [Aortic root dilatation] Onset: 03-02-2020 11-14-2024 Chronic Asthma (1 source) Unspecified asthma, uncomplicated; Translations: [UNSPECIFIED ASTHMA UNCOMPLICATED] Onset: 03-02-2020 Chronic Cancer of prostate (20 sources) Adenocarcinoma of prostate; Translations: [Malignant neoplasm of prostate] Onset: 06-30-2018 Chronic Cardiac dysrhythmias (2 sources) Atrial fibrillation; Translations: [Unspecified atrial fibrillation] Onset: 02-02-2025 02-02-2025 Chronic Coagulation and hemorrhagic disorders (1 source) Coagulation defect, unspecified; Translations: [Coagulation defect, unspecified] Onset: 01-10-2025 Chronic Complications of surgical procedures or medical care (3 sources) Postprocedural hemorrhage of a genitourinary system organ or structure following a genitourinary system procedure; Translations: [Atrial fibrillation] Onset: 03-02-2020 02-02-2025 Episodic Congestive heart failure; nonhypertensive (20 sources) Chronic systolic heart failure; Translations: [Chronic systolic (congestive) heart failure] Onset: 11-06-2021 Resolved: 11-06-2021 Chronic Diabetes mellitus with complications (20 sources) Hyperglycemia due to type 2 diabetes mellitus; Translations: [Type 2 diabetes mellitus with hyperglycemia] Onset: 11-07-2024 01-14-2024 Chronic Diabetes mellitus without complication (18 sources) Type 2 diabetes mellitus in nonobese; Translations: [Type 2 diabetes mellitus without complications] 01-07-2024 Chronic Diabetes mellitus without complication (20 sources) Impaired fasting glycemia; Translations: [Impaired fasting glucose] Onset: 12-26-2024 11-12-2023 Episodic Disorders of lipid metabolism (20 sources) Mixed hyperlipidemia; Translations: [Mixed hyperlipidemia] Onset: 11-07-2024 Chronic Essential hypertension (20 sources) Essential hypertension; Translations: [Essential (primary) hypertension] 11-12-2023 Chronic Genitourinary symptoms and ill-defined conditions (20 sources) Post-micturition incontinence ; Translations: [Post-void dribbling] Onset: 12-20-2020 12-27-2019 Chronic Heart valve disorders (20 sources) Presence of prosthetic heart valve; Translations: [History of aortic valve replacement] Onset: 12-16-2016 Resolved: 11-06-2021 Chronic Hyperplasia of prostate (20 sources) Benign prostatic hypertrophy with outflow obstruction; Translations: [Benign prostatic hyperplasia with lower urinary tract symptoms] Onset: 12-20-2020 Chronic Hypertension with complications and secondary hypertension (7 sources) Hypertensive heart failure; Translations: [Hypertensive heart disease with heart failure] 04-15-2024 Chronic Inflammatory conditions of male genital organs (19 sources) Balanitis; 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 Nutritional deficiencies (20 sources) Nutritional marasmus; Translations: [Unspecified severe protein-calorie malnutrition] Onset: 03-08-2020 03-08-2020 Chronic Other aftercare (1 source) Other buttermilk drier operator (current) drug therapy; Translations: [OTH CLINICAL UNIT COORDINATOR CURRENT DRUG THERAPY] Onset: 01-09-2021 Episodic Other aftercare (20 sources) Long-term current use of anticoagulant; Translations: [jail (current) use of anticoagulants] Onset: 12-16-2016 Episodic Other aftercare (1 source) Wound finding; Translations: [Encounter for other specified aftercare] 01-12-2025 Episodic Other aftercare (1 source) Encounter for other specified aftercare; Translations: [Encounter for other specified aftercare] Onset: 01-16-2025 Episodic Other circulatory disease (2 sources) Carotid bruit; Translations: [Other specified symptoms and signs involving the circulatory and respiratory systems] 12-12-2024 Episodic Other circulatory disease (2 sources) Personal history of other diseases of the circulatory system; Translations: [Personal history of other diseases of the circulatory system] Onset: 01-03-2025 Episodic Other circulatory disease (1 source) Other specified symptoms and signs involving the circulatory and respiratory systems; Translations: [Other specified symptoms and signs involving the circulatory and respiratory systems] Onset: 12-26-2024 Episodic Other diseases of kidney and ureters (1 source) Urinary tract obstruction; Translations: [Other obstructive and reflux uropathy] Onset: 11-17-2022 Episodic Other lower respiratory disease (2 sources) Shortness of breath; Translations: [SHORTNESS OF BREATH] Onset: 03-02-2020 Episodic Other male genital disorders (12 sources) Male erectile dysfunction, unspecified; Translations: [Erectile dysfunction] Onset: 04-07-2022 Chronic Other male genital disorders (20 sources) Pelvic hematoma; Translations: [Vascular disorders of male genital organs] Onset: 03-01-2020 03-01-2020 Chronic Other male genital disorders (4 sources) Other specified disorders of the male genital organs; Translations: [OTHER SPEC D/O MALE GENITAL ORGANS] Onset: 01-29-2021 Episodic Other male genital disorders (7 sources) Swelling of scrotum 01-28-2021 Episodic Other nutritional; endocrine; and metabolic disorders (7 sources) Weight loss 01-13-2020 Episodic Other screening for suspected conditions (not mental disorders or infectious disease) (15 sources) Other specified abnormal findings of blood chemistry; Translations: [Cardiovascular stress test abnormal] Onset: 03-02-2020 01-07-2024 Episodic Residual codes; unclassified (3 sources) Other specified postprocedural states; Translations: [OTH SPECIFIED POSTPROCEDURAL STATES] Onset: 03-02-2020 Episodic Residual codes; unclassified (7 sources) Chronic back pain 01-13-2020 Episodic Residual codes; unclassified (2 sources) History of great vessel repair; Translations: [Other specified postprocedural states] 01-16-2025 Episodic Unclassified (7 sources) Drug therapy finding 04-30-2020 Unclassified (5 sources) Body mass index 20-24 - normal 11-17-2022 Unclassified (5 sources) Non-smoker 11-17-2022 Unclassified (3 sources) Aneurysm of the ascending aorta, without rupture; Translations: [Aneurysm of the ascending aorta, without rupture] Onset: 01-03-2025 Past or Other Problems Problem Classification Problem Date Documented Date Episodic/Chronic Abdominal hernia (20 sources) Diaphragmatic hernia without obstruction or gangrene; Translations: [Left inguinal hernia ] Onset: 03-02-2020 07-07-2019 Episodic Abdominal pain (1 source) Left lower quadrant pain; Translations: [LEFT LOWER QUADRANT PAIN] Onset: 03-02-2020 Episodic Cancer of prostate (20 sources) Personal history of malignant neoplasm of prostate; Translations: [History of malignant neoplasm of prostate] Onset: 12-20-2020 Episodic Complication of device; implant or graft (1 source) Leakage of other urinary catheter, initial encounter; Translations: [LEAKAGE OTHER URINARY CATH INITIAL] Onset: 03-02-2020 Episodic E Codes: Fall (1 source) Unspecified fall, initial encounter; Translations: [UNSPECIFIED FALL INITIAL ENCOUNTER] Onset: 05-08-2020 Episodic Fluid and electrolyte disorders (1 source) Acidosis; Translations: [ACIDOSIS] Onset: 03-02-2020 Episodic Genitourinary symptoms and ill-defined conditions (20 sources) Retention of urine, unspecified; Translations: [Dysuria] Onset: 03-02-2020 Episodic Immunizations and screening for infectious disease (20 sources) Encounter for immunization; Translations: [Infectious disease carrier] Onset: 01-13-2020 Resolved: 07-16-2021 Episodic Comment on above: 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 Malaise and fatigue (20 sources) Weakness; Translations: [Asthenia] Onset: 02-29-2020 Episodic Nonspecific chest pain (20 sources) Chest pain, unspecified; Translations: [Chest pain] Onset: 12-09-2019 01-05-2024 Episodic Other aftercare (4 sources) jail (current) use of anticoagulants; Translations: [CLINICAL UNIT COORDINATOR CURRNT USE ANTICOAGULANTS] Onset: 12-16-2016 Resolved: 11-06-2021 [...] AND URETER UNS] Onset: 03-02-2020 Episodic Other male genital disorders (20 sources) Phimosis; Translations: [Phimosis] Onset: 12-20-2020 02-07-2020 Episodic Other non-traumatic joint disorders (1 source) Pain in right hip; Translations: [PAIN IN RIGHT HIP] Onset: 05-08-2020 Episodic Other upper respiratory infections (1 source) Acute maxillary sinusitis, unspecified; Translations: [Acute non-recurrent maxillary sinusitis J01.00] Onset: 06-21-2021 Resolved: 06-21-2021 Episodic Residual codes; unclassified (20 sources) H/O: anticoagulant therapy; Translations: [Personal history of other drug therapy] Onset: 12-20-2020 Resolved: 03-21-2024 12-27-2019 Episodic Residual codes; unclassified (1 source) Pain, unspecified; Translations: [Pain, unspecified] Onset: 03-03-2024 Episodic Screening and history of mental health [...] LOWER BACK PELVIS INITIAL] Onset: 05-08-2020 Episodic Unclassified (1 source) History of mechanical aortic valve replacement 11-14-2024 Urinary tract infections (20 sources) Urinary tract infection, site not specified; Translations: [Urinary tract infectious disease] Onset: 03-02-2020 12-27-2019 Episodic Results Test Name Value Interpretation Reference Range Facility POCT Protime / INRon 02-20- 025 INR Coag (PPP) [Relative time] 1.4 {INR} Abnormal 0.8 - 1.2 [facility] Interpretation and review of laboratory results Abnormal [facility] Complete Blood Count Auto Di ffon 02-16-2025 Basophils (Bld) [#/Vol] 0.1 10*3/uL Normal 0.0-0.2 [facility] Comment on above: Result Comment: PERF ORMED BY: [facility] [address] [place] [address] PATHOLOGIST ENGINE WATCHMAN VINNIE VILLANUEVA M.D. Performed By: #### C BC, CMP #### [address] Basophils/100 WBC (Bld) 0.6 % Normal . [facility] Comment on above: Performed By: #### C BC, CMP #### [facility] [address] [place] [address] [place] Eosinophils (Bld) [#/Vol] 0.4 10*3/uL Normal 0.0-0.45 [facility] Comment on above: Performed By: #### C BC, CMP #### [address] Eosinophils/100 WBC (Bld) 4.2 % Normal . [facility] Comment on above: Performed By: #### C BC, CMP #### [address] Erythrocyte distribution width (RBC) [Ratio] 16.6 % High 12.0-14.8 [facility] Comment on above: Performed By: #### C BC, CMP #### [address] Hematocrit (Bld) [Volume fraction] 36.4 % Low 38.8-50.0 [facility] Comment on above: Performed By: #### C BC, CMP #### [place] [address] [place] Hemoglobin (Bld) [Mass/Vol] 12.2 g/dL Low 13.0-17.0 [facility] Comment on above: Performed By: #### C BC, CMP #### [place] [address] [place] Lymphocytes (Bld) [#/Vol] 1.1 10*3/uL Normal 1.00-4.8 [facility] Comment on above: Performed By: #### C BC, CMP #### [place] [address] [place] Lymphocytes/100 WBC (Bld) 11.9 % Normal . [facility] Comment on above: Performed By: #### C BC, CMP #### [address] MCH (RBC) [Entitic mass] 32.5 pg Normal 27.5-35.2 [facility] Comment on above: Performed By: #### C BC, CMP #### [address] MCV (RBC) [Entitic vol] 96.9 fL Normal 83.5-101 [facility] Comment on above: Performed By: #### C BC, CMP #### [address] Mean Corpuscular HGB Conc 33.5 g/dL Normal 32.5-35.6 [facility] Comment on above: Performed By: #### C BC, CMP #### [address] Monocytes (Bld) [#/Vol] 0.6 10*3/uL Normal 0.0-0.8 [facility] Comment on above: Performed By: #### C BC, CMP #### [address] Monocytes/100 WBC (Bld) 6.1 % Normal . [facility] Comment on above: Performed By: #### C BC, CMP #### [address] Neutrophils (Bld) [#/Vol] 7.5 10*3/uL Normal 1.8-7.7 [facility] Comment on above: Performed By: #### C BC, CMP #### [address] Neutrophils/100 WBC (Bld) 77.2 % Normal . [facility] Comment on above: Performed By: #### C BC, CMP #### [address] NRBC% 0.0 /100{WBC} Normal 0-0.5 [facility] Comment on above: Performed By: #### C BC, CMP #### [facility] [address] Platelet mean volume (Bld) [Entitic vol] 9.6 fL Normal 6.6-10.1 [facility] Comment on above: Performed By: #### C BC, CMP #### [facility] [address] Platelets (Bld) [#/Vol] 202 10*3/uL Normal 150-450 [facility] Comment on above: Performed By: #### C BC, CMP #### [address] RBC (Bld) [#/Vol] 3.76 10*6/uL Low 3.90-5.60 [facility] Comment on above: Performed By: #### C BC, CMP #### [address] WBC (Bld) [#/Vol] 9.7 10*3/uL Normal 4.1-10.5 [facility] Comment on above: Performed By: #### C BC, CMP #### [address] Comprehensive Metabolic Pane viral 02-16-2025 Albumin [Mass/Vol] 4.2 g/dL Normal 3.5-5.7 [facility] Comment on above: Performed By: #### C BC, CMP #### [address] Albumin/Globulin [Mass ratio] 1.8 {ratio} Normal [facility] Comment on above: Performed By: #### C BC, CMP #### [address] ALP [Catalytic activity/Vol] 90 U/L Normal 34-104 [facility] Comment on above: Result Comment: PERF ORMED BY: [place] [address] PATHOLOGIST ENGINE WATCHMAN VINNIE VILLANUEVA M.D. Performed By: #### C BC, CMP #### [address] ALT [Catalytic activity/Vol] 7 U/L Normal 7-52 [facility] Comment on above: Performed By: #### C BC, CMP #### [address] Anion gap [Moles/Vol] 9.2 mmol/L Normal 6.0-15.0 [facility] Comment on above: Performed By: #### C BC, CMP #### [address] AST [Catalytic activity/Vol] 12 U/L Low 13-39 [facility] Comment on above: Performed By: #### C BC, CMP #### [address] Bilirubin [Mass/Vol] 0.4 mg/dL Normal 0.3-1.0 [facility] Comment on above: Performed By: #### C BC, CMP #### [address] Calcium [Mass/Vol] 9.2 mg/dL Normal 8.6-10.3 [facility] Comment on above: Performed By: #### C BC, CMP #### [address] Chloride [Moles/Vol] 95 mmol/L Low 98-107 [facility] Comment on above: Performed By: #### C BC, CMP #### [address] CO2 [Moles/Vol] 32.4 mmol/L High 21.0-31.0 [facility] Comment on above: Performed By: #### C BC, CMP #### [address] Creatinine [Mass/Vol] 1.08 mg/dL Normal 0.70-1.30 [facility] Comment on above: Performed By: #### C BC, CMP #### [place] [address] [place] GFR/1.73 sq M.predicted MDRD (S/P/Bld) [Vol rate/Area] mL/min/{1.73_m2} Normal [facility] Comment on above: Performed By: #### C BC, CMP #### [address] Globulin (S) [Mass/Vol] 2.4 g/dL Normal [facility] Comment on above: Performed By: #### C BC, CMP #### [address] Glucose [Mass/Vol] 102 mg/dL High 70-100 [facility] Comment on above: Result Comment: [facility] Glucose Reference Range is dependent on time and content of last meal. Glucose of more than 200 mg/dL in a nonstressed, ambulatory subject supports the diagnosis of Diabetes Mellitus. ADA recommended reference range Performed By: #### C BC, CMP #### [address] Potassium [Moles/Vol] 4.6 mmol/L Normal 3.5-5.1 [facility] Comment on above: Performed By: #### C BC, CMP #### [address] Protein [Mass/Vol] 6.6 g/dL Normal 6.4-8.9 [facility] Comment on above: Performed By: #### C BC, CMP #### [address] Sodium [Moles/Vol] 132 mmol/L Low 136-145 [facility] Comment on above: Performed By: #### C BC, CMP #### [address] Urea nitrogen [Mass/Vol] 16 mg/dL Normal 7-25 [facility] Comment on above: Performed By: #### C BC, CMP #### [address] POCT Protime / INRon 02-14-2 025 INR Coag (PPP) [Relative time] 1.1 {INR} 0.8 - 1.2 [facility] BASIC METABOLIC PANELon 06-0 Anion gap [Moles/Vol] 8 mmol/L Normal 5-15 [facility] Comment on above: Performed By: #### B MP #### [facility] ([facility]) [address] [place] [address] VIR Calcium [Mass/Vol] 9.5 mg/dL Normal 8.5-10.5 [facility] Comment on above: Performed By: #### B MP #### [facility] ([facility]) [address] [place] [address] VIR Chloride [Moles/Vol] 98 mmol/L Normal 98-109 [facility] Comment on above: Performed By: #### B MP #### [facility] ([facility]) [address] [place] [address] VIR CO2 [Moles/Vol] 32 mmol/L Normal 22-32 [facility] Comment on above: Performed By: #### B MP #### [facility] ([facility]) [address] [place] [address] VIR Creatinine [Mass/Vol] 1.10 mg/dL Normal 0.60-1.30 [facility] Comment on above: Result Comment: METH OD TRACEABLE TO IDMS STANDARD Performed By: #### B MP #### [facility] ([facility]) [address] [place] [address] VIR GFR/1.73 sq M.predicted among non-blacks MDRD (S/P/Bld) [Vol rate/Area] 68 mL/min/{1.73_m2} Normal >=60 [facility] Comment on above: Result Comment: Repo rted eGFR is based on the CKD-EPI 2020 equation that does not use a race coefficient. Performed By: #### B MP #### [facility] ([facility]) [address] [place] [address] VIR Glucose [Mass/Vol] 114 mg/dL High 65-99 [facility] Comment on above: Performed By: #### B MP #### [facility] ([facility]) [address] [place] [address] VIR Potassium [Moles/Vol] 4.1 mmol/L Normal 3.5-5.0 [facility] Comment on above: Performed By: #### B MP #### [facility] ([facility]) [address] [place] [address] VIR Sodium [Moles/Vol] 138 mmol/L Normal 134-146 [facility] Comment on above: Performed By: #### B MP #### [facility] ([facility]) [address] [place] [address] VIR Urea nitrogen [Mass/Vol] 17 mg/dL Normal 5-27 [facility] Comment on above: Performed By: #### B MP #### [facility] ([facility]) [address] [place] [address] VIR POCT EKGon 02-02-2025 [facility] Protime & INRon 01-31-2025 INR Coag (PPP) [Relative time] 2.3 {INR} Abnormal 0.9 - 1.1 [facility] Interpretation and review of laboratory results Abnormal [facility] Protime & INRon 01-24-2025 INR Coag (PPP) [Relative time] 2.1 {INR} Abnormal 0.9 - 1.1 [facility] Interpretation and review of laboratory results Abnormal [facility] BASIC METABOLIC PANELon 01-05 Anion gap [Moles/Vol] 12 mmol/L Normal 5-15 [facility] Comment on above: Performed By: #### P INR, CMP, HA1C, CBC, [id number] #### [facility] ([id number]) [address] [place] [address] Calcium [Mass/Vol] 8.7 mg/dL Normal 8.5-10.5 [facility] Comment on above: Performed By: #### P INR, CMP, HA1C, CBC, [id number] #### [facility] ([id number]) [address] [place] [address] Chloride [Moles/Vol] 98 mmol/L Normal 98-109 [facility] Comment on above: Performed By: #### P INR, CMP, HA1C, CBC, 86463-4 #### [facility] ([id number]) [address], [address] [place] [address] CO2 [Moles/Vol] 26 mmol/L Normal 22-32 [facility] Comment on above: Performed By: #### P INR, CMP, HA1C, CBC, 71791-5 #### [facility] ([id number]) [address], [address] [place] [address] Creatinine [Mass/Vol] 0.98 mg/dL Normal 0.60-1.30 [facility] Comment on above: Result Comment: METH OD TRACEABLE TO IDMS STANDARD Performed By: #### P INR, CMP, HA1C, CBC, 25506-8 #### [facility] ([id number]) [address], [address] [place] [address] GFR/1.73 sq M.predicted among non-blacks MDRD (S/P/Bld) [Vol rate/Area] 78 mL/min/{1.73_m2} Normal >=60 [facility] Comment on above: Result Comment: Repo rted eGFR is based on the CKD-EPI 2020 equation that does not use a race coefficient. Performed By: #### P INR, CMP, HA1C, CBC, 59824-6 #### [facility] ([id number]) [address], [address] [place] [address] Glucose [Mass/Vol] 109 mg/dL High 65-99 [facility] Comment on above: Performed By: #### P INR, CMP, HA1C, CBC, 61376-2 #### [facility] ([id number]) [address], [address] [place] [address] Potassium [Moles/Vol] 3.7 mmol/L Normal 3.5-5.0 [facility] Comment on above: Performed By: #### P INR, CMP, HA1C, CBC, 35778-7 #### [facility] ([id number]) [address] [place] [address] Sodium [Moles/Vol] 136 mmol/L Normal 134-146 [facility] Comment on above: Performed By: #### P INR, CMP, HA1C, CBC, 12996-3 #### [facility] ([id number]) [address], [address] [place] [address] Urea nitrogen [Mass/Vol] 15 mg/dL Normal 5-27 [facility] Comment on above: Performed By: #### P INR, CMP, HA1C, CBC, 08508-9 #### [facility] ([id number]) [address], [address] [place] [address] CBC (NO DIFF)on 01-16-2025 Erythrocyte distribution width (RBC) [Ratio] 16.3 % High 11.5-15 [facility] Comment on above: Performed By: #### P INR, CMP, HA1C, CBC, 95158-8 #### [facility] ([id number]) [address], [address] [place] [address] Hematocrit (Bld) [Volume fraction] 27.8 % Low 39-50 [facility] Comment on above: Performed By: #### P INR, CMP, HA1C, CBC, 77685-8 #### [facility] ([id number]) [address] [address] [place] [address] Hemoglobin (Bld) [Mass/Vol] 9.1 g/dL Low 13-17 [facility] Comment on above: Performed By: #### P INR, CMP, HA1C, CBC, 51086-8 #### [facility] ([id number]) [address] [address] [place] [address] MCH (RBC) [Entitic mass] 31.6 pg Normal 27-34 [facility] Comment on above: Performed By: #### P INR, CMP, HA1C, CBC, 36858-8 #### [facility] ([id number]) [address] [facility] [address] [place] [address] MCHC (RBC) [Mass/Vol] 32.9 g/dL Normal 32-36 [facility] Comment on above: Performed By: #### P INR, CMP, HA1C, CBC, 20042-3 #### [facility] ([id number]) [address] [address] [place] [address] MCV (RBC) [Entitic vol] 96 fL Normal 80-100 [facility] Comment on above: Performed By: #### P INR, CMP, HA1C, CBC, 64868-3 #### [facility] ([id number]) [address] [address] [place] [address] Platelet mean volume (Bld) [Entitic vol] 8.9 fL Normal 7-12 [facility] Comment on above: Performed By: #### P INR, CMP, HA1C, CBC, 41249-1 #### [facility] ([id number]) [address] [address] [place] [address] Platelets (Bld) [#/Vol] 266 10*3/uL Normal 150-450 [facility] Comment on above: Performed By: #### P INR, CMP, HA1C, CBC, 97833-2 #### [facility] ([id number]) [address] [address] [place] [address] RBC COUNT 2.89 X10E12/L Low 4.1-5.7 [facility] Comment on above: Performed By: #### P INR, CMP, HA1C, CBC, 07318-0 #### [facility] ([id number]) [address], [address] [place] [address] WBC (Bld) [#/Vol] 12.2 10*3/uL High 4-11 [facility] Comment on above: Performed By: #### P INR, CMP, HA1C, CBC, 89219-2 #### [facility] ([id number]) [address], [address] [place] [address] MAGNESIUMon 01-16-2025 Magnesium [Mass/Vol] 1.9 mg/dL Normal 1.8-2.6 [facility] Comment on above: Performed By: #### P INR, CMP, HA1C, CBC, 03346-4 #### [facility] ([id number]) [address], [address] [place] [address] PROTIME AND INRon 01-16-2025 INR 1.5 High 0.9-1.2 [facility] Comment on above: Performed By: #### P INR, CMP, HA1C, CBC, 85633-6 #### [facility] ([id number]) [address], [address] [place] [address] PT Coag (PPP) [Time] 16.9 s High 9.8-13.2 [facility] Comment on above: Performed By: #### P INR, CMP, HA1C, CBC, 47407-9 #### [facility] ([id number]) [address], [address] [place] [address] PROTIME AND INRon 01-11-2025 INR 4.1 Critically high 0.9-1.2 [facility] Comment on above: Performed By: #### P INR #### [facility] ([facility]) [address] [place] [address] VIR PT Coag (PPP) [Time] 46.4 s High 9.8-13.2 [facility] Comment on above: Performed By: #### P INR #### [facility] ([facility]) [address] [place] [address]. [place] [address] VIR PROTIME AND INRon 01-10-2024 INR 4.6 Critically high 0.9-1.2 [facility] Comment on above: Performed By: #### P INR #### [facility] ([facility]) [address] [place] [address]. [place] [address] VIR PT Coag (PPP) [Time] 52.0 s High 9.8-13.2 [facility] Comment on above: Performed By: #### P INR #### [facility] ([facility]) [address] [place] [address]. [place] [address] VIR BASIC METABOLIC PANELon Anion gap [Moles/Vol] 7 mmol/L Normal 5-15 [facility] Comment on above: Performed By: #### P INR, CMP, HA1C, CBC, 58253-6 #### [facility] ([id number]) [address] [place] [address] Calcium [Mass/Vol] 8.2 mg/dL Low 8.5-10.5 [facility] Comment on above: Performed By: #### P INR, CMP, HA1C, CBC, 45623-7 #### [facility] ([id number]) [address], [address] [place] [address] Chloride [Moles/Vol] 108 mmol/L Normal 98-109 [facility] Comment on above: Performed By: #### P INR, CMP, HA1C, CBC, 84136-0 #### [facility] ([id number]) [address] [place] [address] CO2 [Moles/Vol] 28 mmol/L Normal 22-32 [facility] Comment on above: Performed By: #### P INR, CMP, HA1C, CBC, 62734-7 #### [facility] ([id number]) [address] [address] Creatinine [Mass/Vol] 0.70 mg/dL Normal 0.60-1.30 [facility] Comment on above: Result Comment: METH OD TRACEABLE TO IDMS STANDARD Performed By: #### P INR, CMP, HA1C, CBC, 54696-9 #### [facility] ([id number]) [address] [address] EGFR (CKD-EPI) NON-RACE DEPENDENT >^90 Normal >=60 [facility] Comment on above: Result Comment: [facility] based on the CKD-EPI 2020 equation that does not use a race coefficient. Performed By: #### P INR, CMP, HA1C, CBC, 19212-5 #### [facility] ([id number]) [address] [address] Glucose [Mass/Vol] 109 mg/dL High 65-99 [facility] Comment on above: Performed By: #### P INR, CMP, HA1C, CBC, 20089-5 #### [facility] ([id number]) [address] [address] Potassium [Moles/Vol] 4.0 mmol/L Normal 3.5-5.0 [facility] Comment on above: Performed By: #### P INR, CMP, HA1C, CBC, 36735-5 #### [facility] ([id number]) [address] [address] Sodium [Moles/Vol] 143 mmol/L Normal 134-146 [facility] Comment on above: Performed By: #### P INR, CMP, HA1C, CBC, 08204-5 #### [facility] ([id number]) [address] [place] [address] Urea nitrogen [Mass/Vol] 30 mg/dL High 5-27 [facility] Comment on above: Performed By: #### P INR, CMP, HA1C, CBC, 68463-3 #### [facility] ([id number]) [address] [address] CBC (NO DIFF)on 01-09-2025 Erythrocyte distribution width (RBC) [Ratio] 14.8 % Normal 11.5-15 [facility] Comment on above: Performed By: #### P INR, CMP, HA1C, CBC, 61672-3 #### [facility] ([id number]) [address] [address] Hematocrit (Bld) [Volume fraction] 25.2 % Low 39-50 [facility] Comment on above: Performed By: #### P INR, CMP, HA1C, CBC, 23104-4 #### [facility] ([id number]) [address] [address] Hemoglobin (Bld) [Mass/Vol] 8.4 g/dL Low 13-17 [facility] Comment on above: Performed By: #### P INR, CMP, HA1C, CBC, 91807-8 #### [facility] ([id number]) [address], [address] [address] MCH (RBC) [Entitic mass] 31.5 pg Normal 27-34 [facility] Comment on above: Performed By: #### P INR, CMP, HA1C, CBC, 82429-5 #### [facility] ([id number]) [address] [address] MCHC (RBC) [Mass/Vol] 33.4 g/dL Normal 32-36 [facility] Comment on above: Performed By: #### P INR, CMP, HA1C, CBC, 71062-6 #### [facility] ([id number]) [address] [address] MCV (RBC) [Entitic vol] 95 fL Normal 80-100 [facility] Comment on above: Performed By: #### P INR, CMP, HA1C, CBC, 14059-4 #### [facility] ([id number]) [address] [address] [place] [address] Platelet mean volume (Bld) [Entitic vol] 8.8 fL Normal 7-12 [facility] Comment on above: Performed By: #### P INR, CMP, HA1C, CBC, 33842-6 #### [facility] ([id number]) [address] [address] Platelets (Bld) [#/Vol] 134 10*3/uL Low 150-450 [facility] Comment on above: Performed By: #### P INR, CMP, HA1C, CBC, 11632-9 #### [facility] ([id number]) [address] [address] [place] [address] RBC COUNT 2.67 X10E12/L Low 4.1-5.7 [facility] Comment on above: Performed By: #### P INR, CMP, HA1C, CBC, 61830-2 #### [facility] ([id number]) [address] [address] WBC (Bld) [#/Vol] 12.6 10*3/uL High 4-11 [facility] Comment on above: Performed By: #### P INR, CMP, HA1C, CBC, 36130-7 #### [facility] ([id number]) [address] [address] [place] [address] FL SWALLOW MOTILITY FUNCTION on 01-09-2025 FL SWALLOW MOTILITY FUNCTION FL SWALLOW MOTILITY FUNCTION FL SWALLOW MOTILITY FUNCTION HISTORY: Oropharyngeal dysphagia [...] Christiana Love MD on 01/09/2025 8:48 AM I, Booker Le MD have personally reviewed the image(s) and agree with and/or edited the report Finalized by Booker Le MD on 01/09/2025 8:57 AM Normal [facility] MAGNESIUMon 01-09-2025 Magnesium [Mass/Vol] 2.2 mg/dL Normal 1.8-2.6 [facility] Comment on above: Performed By: #### P INR, CMP, HA1C, CBC, 55139-6 #### [facility] ([id number]) [address] [place] [address] PROTIME AND INRon 01-09-2025 INR 3.7 High 0.9-1.2 [facility] Comment on above: Performed By: #### P INR, CMP, HA1C, CBC, 12900-0 #### [facility] ([id number]) [address] [place] [address] PT Coag (PPP) [Time] 42.6 s High 9.8-13.2 [facility] Comment on above: Performed By: #### P INR, CMP, HA1C, CBC, 91228-1 #### [facility] ([id number]) [address] [place] [address] APTTon 01-08-2025 aPTT Coag (Bld) [Time] 38 s High 26-37 Pr [facility] Comment on above: Performed By: #### P INR, CMP, HA1C, CBC, 44156-0 #### [facility] ([id number]) [address] [place] [address] BASIC METABOLIC PANELon 05-0 Anion gap [Moles/Vol] 9 mmol/L Normal 5-15 [facility] Comment on above: Performed By: #### P INR, CMP, HA1C, CBC, 15380-3 #### [facility] ([id number]) [address] [place] [address] Calcium [Mass/Vol] 8.3 mg/dL Low 8.5-10.5 [facility] Comment on above: Performed By: #### P INR, CMP, HA1C, CBC, 21568-8 #### [facility] ([id number]) [address] [place] [address] Chloride [Moles/Vol] 105 mmol/L Normal 98-109 [facility] Comment on above: Performed By: #### P INR, CMP, HA1C, CBC, 66322-7 #### [facility] ([id number]) [address] [place] [address] CO2 [Moles/Vol] 29 mmol/L Normal 22-32 [facility] Comment on above: Performed By: #### P INR, CMP, HA1C, CBC, 80811-8 #### [facility] ([id number]) [address] [place] [address] Creatinine [Mass/Vol] 0.74 mg/dL Normal 0.60-1.30 [facility] Comment on above: Result Comment: METH OD TRACEABLE TO IDMS STANDARD Performed By: #### P INR, CMP, HA1C, CBC, 89368-6 #### [facility] ([id number]) [address] [place] [address] EGFR (CKD-EPI) NON-RACE DEPENDENT >^90 Normal >=60 [facility] Comment on above: Result Comment: Repo rted eGFR is based on the CKD-EPI 2020 equation that does not use a race coefficient. Performed By: #### P INR, CMP, HA1C, CBC, 32005-1 #### [facility] ([id number]) [address] [place] [address] Glucose [Mass/Vol] 123 mg/dL High 65-99 [facility] Comment on above: Performed By: #### P INR, CMP, HA1C, CBC, 68808-4 #### [facility] ([id number]) [address] [place] [address] Potassium [Moles/Vol] 3.6 mmol/L Normal 3.5-5.0 [facility] Comment on above: Performed By: #### P INR, CMP, HA1C, CBC, 51091-0 #### [facility] ([id number]) [address] [place] [address] Sodium [Moles/Vol] 143 mmol/L Normal 134-146 [facility] Comment on above: Performed By: #### P INR, CMP, HA1C, CBC, 21508-3 #### [facility] ([id number]) [address] [place] [address] Urea nitrogen [Mass/Vol] 30 mg/dL High 5-27 [facility] Comment on above: Performed By: #### P INR, CMP, HA1C, CBC, 20343-3 #### [facility] ([id number]) [address] [place] [address] BEDSIDE GLUCOSEon 01-08-2025 Glucose [Mass/Vol] 140 mg/dL High 65-99 [facility] Comment on above: Performed By: #### P INR, CMP, HA1C, CBC, 61163-6 #### [facility] ([id number]) [address] [place] [address] Glucose [Mass/Vol] 147 mg/dL High 65-99 [facility] Comment on above: Performed By: #### P INR, CMP, HA1C, CBC, 29305-8 #### [facility] ([id number]) [address] [place] [address] Glucose [Mass/Vol] 141 mg/dL High 65-99 [facility] Comment on above: Performed By: #### P INR, CMP, HA1C, CBC, 41671-8 #### [facility] ([id number]) [address] [place] [address] Glucose [Mass/Vol] 170 mg/dL High 65-99 [facility] Comment on above: Performed By: #### P INR, CMP, HA1C, CBC, 91876-5 #### [facility] ([id number]) [address] [place] [address] Glucose [Mass/Vol] 127 mg/dL High 65-99 [facility] Comment on above: Performed By: #### P INR, CMP, HA1C, CBC, 38933-5 #### [facility] ([id number]) [address] [place] [address] CBC (NO DIFF)on 01-08-2025 Erythrocyte distribution width (RBC) [Ratio] 14.5 % Normal 11.5-15 [facility] Comment on above: Performed By: #### P INR, CMP, HA1C, CBC, 98126-8 #### [facility] ([id number]) [address] [place] [address] Hematocrit (Bld) [Volume fraction] 25.8 % Low 39-50 [facility] Comment on above: Performed By: #### P INR, CMP, HA1C, CBC, 45618-0 #### [facility] ([id number]) [address] [place] [address] Hemoglobin (Bld) [Mass/Vol] 8.7 g/dL Low 13-17 [facility] Comment on above: Performed By: #### P INR, CMP, HA1C, CBC, 40191-2 #### [facility] ([id number]) [address] [place] [address] MCH (RBC) [Entitic mass] 31.4 pg Normal 27-34 [facility] Comment on above: Performed By: #### P INR, CMP, HA1C, CBC, 53550-8 #### [facility] ([id number]) [address] [facility] [address] [place] [address] MCHC (RBC) [Mass/Vol] 33.7 g/dL Normal 32-36 [facility] Comment on above: Performed By: #### P INR, CMP, HA1C, CBC, 81876-0 #### [facility] ([id number]) [address] [facility] [address] [place] [address] MCV (RBC) [Entitic vol] 93 fL Normal 80-100 [facility] Comment on above: Performed By: #### P INR, CMP, HA1C, CBC, 37996-0 #### [facility] ([id number]) [address] [address] [place] [address] Platelet mean volume (Bld) [Entitic vol] 9.3 fL Normal 7-12 [facility] Comment on above: Performed By: #### P INR, CMP, HA1C, CBC, 27292-4 #### [facility] ([id number]) [address] [address] [place] [address] Platelets (Bld) [#/Vol] 105 10*3/uL Low 150-450 [facility] Comment on above: Performed By: #### P INR, CMP, HA1C, CBC, 24706-8 #### [facility] ([id number]) [address] [place] [address] RBC COUNT 2.76 X10E12/L Low 4.1-5.7 [facility] Comment on above: Performed By: #### P INR, CMP, HA1C, CBC, 73784-1 #### [facility] ([id number]) [address] [place] [address] WBC (Bld) [#/Vol] 12.5 10*3/uL High 4-11 [facility] Comment on above: Performed By: #### P INR, CMP, HA1C, CBC, 86128-7 #### [facility] ([id number]) [address] [place] [address] HEPARIN ANTI XA, UNFRACTIONA TEDon 01-08-2025 ANTI XA UFH 0.07 IU/mL Low 0.30-0.70 [facility] Comment on above: Result Comment: Opti mal time for testing is 6 hrs post dosage This test is specific for monitoring patients on UFH, and is not recommended for use with other Anti-Xa medications. Performed By: #### P INR, CMP, HA1C, CBC, 51665-0 #### [facility] ([id number]) [address] [place] [address] HEPARIN ANTI XA, UNFRACTIONATED UFHXA HEPARIN ANTI XA, UNFRACTIONATED Cancelled Normal [facility] Comment on above: Order Comment: NOTE WAS SENT REQUESTING ANTIXA NOT TO BE RAN POTASSIUMon 01-08-2025 Potassium [Moles/Vol] 4.1 mmol/L Normal 3.5-5.0 [facility] Comment on above: Performed By: #### P INR, CMP, HA1C, CBC, 96721-9 #### [facility] ([id number]) [address] [place] [address] Potassium [Moles/Vol] 3.7 mmol/L Normal 3.5-5.0 [facility] Comment on above: Performed By: #### P INR, CMP, HA1C, CBC, 44437-8 #### [facility] ([id number]) [address] [place] [address] PROTIME AND INRon 01-08-2025 INR 2.4 High 0.9-1.2 [facility] Comment on above: Performed By: #### P INR, CMP, HA1C, CBC, 73008-0 #### [facility] ([id number]) [address] [place] [address] PT Coag (PPP) [Time] 27.0 s High 9.8-13.2 [facility] Comment on above: Performed By: #### P INR, CMP, HA1C, CBC, 54906-5 #### [facility] ([id number]) [address] [place] [address] INR 2.3 High 0.9-1.2 [facility] Comment on above: Performed By: #### P INR, CMP, HA1C, CBC, 10518-1 #### [facility] ([id number]) [address] [place] [address] PT Coag (PPP) [Time] 26.5 s High 9.8-13.2 [facility] Comment on above: Performed By: #### P INR, CMP, HA1C, CBC, 65090-4 #### [facility] ([id number]) [address] [place] [address] BASIC METABOLIC PANELon 050 Anion gap [Moles/Vol] 6 mmol/L Normal 5-15 [facility] Comment on above: Performed By: #### H RTN #### [facility] ([facility]) [address] [place] [address] VIR Calcium [Mass/Vol] 8.3 mg/dL Low 8.5-10.5 [facility] Comment on above: Performed By: #### H RTN #### [facility] ([facility]) [address] [place] [address] VIR Chloride [Moles/Vol] 105 mmol/L Normal 98-109 [facility] Comment on above: Performed By: #### H RTN #### [facility] ([facility]) [address] [place] [address] VIR CO2 [Moles/Vol] 31 mmol/L Normal 22-32 [facility] Comment on above: Performed By: #### H RTN #### [facility] ([facility]) [address] [place] [address] VIR Creatinine [Mass/Vol] 0.75 mg/dL Normal 0.60-1.30 [facility] Comment on above: Result Comment: METH OD TRACEABLE TO IDMS STANDARD Performed By: #### H RTN #### [facility] ([facility]) [address] [place] [address] VIR EGFR (CKD-EPI) NON-RACE DEPENDENT >^90 Normal >=60 [facility] Comment on above: Result Comment: Repo [facility] eGFR is based on the CKD-EPI 2020 equation that does not use a race coefficient. Performed By: #### H RTN #### [facility] ([facility]) [address] [place] [address] VIR Glucose [Mass/Vol] 127 mg/dL High 65-99 [facility] Comment on above: Performed By: #### H RTN #### [facility] ([facility]) [address] [place] [address] VIR Potassium [Moles/Vol] 3.9 mmol/L Normal 3.5-5.0 [facility] Comment on above: Performed By: #### H RTN #### [facility] ([facility]) [address] [place] [address] VIR Sodium [Moles/Vol] 142 mmol/L Normal 134-146 [facility] Comment on above: Performed By: #### H RTN #### [facility] ([facility]) [address] [place] [address] VIR Urea nitrogen [Mass/Vol] 28 mg/dL High 5-27 [facility] Comment on above: Performed By: #### H RTN #### [facility] ([facility]) [address] [place] [address] VIR BEDSIDE GLUCOSEon 01-07-2025 Glucose [Mass/Vol] 159 mg/dL High 65-99 [facility] Comment on above: Performed By: #### P INR, CMP, HA1C, CBC, 55134-8 #### [facility] ([id number]) [address], [address] [place] [address] Glucose [Mass/Vol] 124 mg/dL High 65-99 [facility] Comment on above: Performed By: #### H RTN #### [facility] ([facility]) [address] [place] [address] VIR Glucose [Mass/Vol] 165 mg/dL High 65-99 [facility] Comment on above: Performed By: #### H RTN #### [facility] ([facility]) [address] [place] [address] VIR Glucose [Mass/Vol] 122 mg/dL High 65-99 [facility] Comment on above: Performed By: #### H RTN #### [facility] ([facility]) [address] [place] [address] VIR CBC (NO DIFF)on 01-07-2025 Erythrocyte distribution width (RBC) [Ratio] 14.8 % Normal 11.5-15 [facility] [facility] Comment on above: Performed By: #### H RTN #### [facility] ([facility]) [address] [place] [address] VIR Hematocrit (Bld) [Volume fraction] 25.8 % Low 39-50 [facility] Comment on above: Performed By: #### H RTN #### [facility] ([facility]) [address] [place] [address] VIR Hemoglobin (Bld) [Mass/Vol] 8.7 g/dL Low 13-17 [facility] Comment on above: Performed By: #### H RTN #### [facility] ([facility]) [address] [place] [address] VIR MCH (RBC) [Entitic mass] 31.2 pg Normal 27-34 [facility] Comment on above: Performed By: #### H RTN #### [facility] ([facility]) [address] [place] [address] VIR MCHC (RBC) [Mass/Vol] 33.9 g/dL Normal 32-36 [facility] Comment on above: Performed By: #### H RTN #### [facility] ([facility]) [address] [place] [address] VIR MCV (RBC) [Entitic vol] 92 fL Normal 80-100 [facility] Comment on above: Performed By: #### H RTN #### [facility] ([facility]) [address] [place] [address] VIR Platelet mean volume (Bld) [Entitic vol] 9.8 fL Normal 7-12 [facility] Comment on above: Performed By: #### H RTN #### [facility] ([facility]) [address] [place] [address] VIR Platelets (Bld) [#/Vol] 92 10*3/uL Low 150-450 [facility] Comment on above: Performed By: #### H RTN #### [facility] ([facility]) [address] [place] [address] VIR RBC COUNT 2.79 X10E12/L Low 4.1-5.7 [facility] Comment on above: Performed By: #### H RTN #### [facility] ([facility]) [address] [place] [address] VIR WBC (Bld) [#/Vol] 13.1 10*3/uL High 4-11 [facility] Comment on above: Performed By: #### H RTN #### [facility] ([facility]) [address] [place] [address] VIR HEPARIN ANTI XA, UNFRACTIONA TEDon 01-07-2025 ANTI XA UFH 0.48 IU/mL Normal 0.30-0.70 [facility] Comment on above: Result Comment: Opti mal time for testing is 6 hrs post dosage This test is specific for monitoring patients on UFH, and is not recommended for use with other Anti-Xa medications. Performed By: #### H RTN #### [facility] ([facility]) [address] [place] [address] VIR ANTI XA UFH 0.43 IU/mL Normal 0.30-0.70 [facility] Comment on above: Result Comment: Opti mal time for testing is 6 hrs post dosage This test is specific for monitoring patients on UFH, and is not recommended for use with other Anti-Xa medications. Performed By: #### H RTN #### [facility] ([facility]) [address] [place] [address] VIR PROTIME AND INRon 01-07-2025 INR 1.8 High 0.9-1.2 [facility] Comment on above: Performed By: #### H RTN #### [facility] ([facility]) [address] [place] [address] VIR PT Coag (PPP) [Time] 20.3 s High 9.8-13.2 [facility] Comment on above: Performed By: #### H RTN #### [facility] ([facility]) [address] [place] [address] VIR INR 1.5 High 0.9-1.2 [facility] Comment on above: Performed By: #### H RTN #### [facility] ([facility]) [address] [place] [address] VIR PT Coag (PPP) [Time] 17.0 s High 9.8-13.2 [facility] Comment on above: Performed By: #### H RTN #### [facility] ([facility]) [address] [place] [address] VIR XR CHEST 1 VWon 01-07-2025 XR CHEST 1 VW XR CHEST 1 VW CHEST 1 VIEW HISTORY: Chest tube discontinuation COMPARISON: 01/06/2025 IMPRESSION: * Interval removal of right chest tube and mediastinal drains. Stable right IJ central venous catheter. * Elevated right hemidiaphragm with bibasilar atelectasis and small pleural effusions, unchanged. * No pneumothorax. Finalized by George Gregorio MD on 01/07/2025 4:26 AM Normal [facility] BASIC METABOLIC PANELon 05 Anion gap [Moles/Vol] 7 mmol/L Normal 5-15 [facility] Comment on above: Performed By: #### H RTN #### [facility] ([facility]) [address] [place] [address] VIR Calcium [Mass/Vol] 8.1 mg/dL Low 8.5-10.5 [facility] Comment on above: Performed By: #### H RTN #### [facility] ([facility]) [address] [place] [address] VIR Chloride [Moles/Vol] 104 mmol/L Normal 98-109 [facility] Comment on above: Performed By: #### H RTN #### [facility] ([facility]) [address] [place] [address] VIR CO2 [Moles/Vol] 30 mmol/L Normal 22-32 [facility] Comment on above: Performed By: #### H RTN #### [facility] ([facility]) [address] [place] [address] VIR Creatinine [Mass/Vol] 0.77 mg/dL Normal 0.60-1.30 [facility] Comment on above: Result Comment: METH OD TRACEABLE TO IDMS STANDARD Performed By: #### H RTN #### [facility] ([facility]) [address] [place] [address] VIR EGFR (CKD-EPI) NON-RACE DEPENDENT >^90 Normal >=60 [facility] Comment on above: Result Comment: Repo rted eGFR is based on the CKD-EPI 2020 equation that does not use a race coefficient. Performed By: #### H RTN #### [facility] ([facility]) [address] [place] [address] VIR Glucose [Mass/Vol] 138 mg/dL High 65-99 [facility] Comment on above: Performed By: #### H RTN #### [facility] ([facility]) [address] [place] [address] VIR Potassium [Moles/Vol] 3.8 mmol/L Normal 3.5-5.0 [facility] Comment on above: Performed By: #### H RTN #### [facility] ([facility]) [address] [place] [address] VIR Sodium [Moles/Vol] 141 mmol/L Normal 134-146 [facility] Comment on above: Performed By: #### H RTN #### [facility] ([facility]) [address] [place] [address] VIR Urea nitrogen [Mass/Vol] 28 mg/dL High 5-27 [facility] Comment on above: Performed By: #### H RTN #### [facility] ([facility]) [address] [place] [address] VIR BEDSIDE GLUCOSEon 01-06-2025 Glucose [Mass/Vol] 182 mg/dL High 65-99 [facility] Comment on above: Performed By: #### H RTN #### [facility] ([facility]) [address] [place] [address] VIR Glucose [Mass/Vol] 234 mg/dL High 65-99 [facility] Comment on above: Performed By: #### H RTN #### [facility] ([facility]) [address] [place] [address] VIR Glucose [Mass/Vol] 209 mg/dL High 65-99 [facility] Comment on above: Performed By: #### H RTN #### [facility] ([facility]) [address] [place] [address] VIR Glucose [Mass/Vol] 212 mg/dL High 65-99 [facility] Comment on above: Performed By: #### H RTN #### [facility] ([facility]) [address] [facility] [place] [address] VIR CBC (NO DIFF)on 01-06-2025 Erythrocyte distribution width (RBC) [Ratio] 15.2 % High 11.5-15 [facility] Comment on above: Performed By: #### I MAGN #### [facility] ([facility]) [address] [place] [address] VIR Hematocrit (Bld) [Volume fraction] 25.0 % Low 39-50 [facility] Comment on above: Performed By: #### I MAGN #### [facility] ([facility]) [address] [place] [address] VIR Hemoglobin (Bld) [Mass/Vol] 8.4 g/dL Low 13-17 [facility] Comment on above: Performed By: #### I MAGN #### [facility] ([facility]) [address] [place] [address] VIR MCH (RBC) [Entitic mass] 31.4 pg Normal 27-34 [facility] Comment on above: Performed By: #### I MAGN #### [facility] ([facility]) [address] [facility] [place] [address] VIR MCHC (RBC) [Mass/Vol] 33.7 g/dL Normal 32-36 [facility] Comment on above: Performed By: #### I MAGN #### [facility] ([facility]) [address] [place] [address] VIR MCV (RBC) [Entitic vol] 93 fL Normal 80-100 [facility] Comment on above: Performed By: #### I MAGN #### [facility] ([facility]) [address] [place] [address] VIR Platelet mean volume (Bld) [Entitic vol] 9.3 fL Normal 7-12 [facility] Comment on above: Performed By: #### I MAGN #### [facility] ([facility]) [address] [place] [address] VIR Platelets (Bld) [#/Vol] 80 10*3/uL Low 150-450 [facility] Comment on above: Performed By: #### I MAGN #### [facility] ([facility]) [address] [place] [address] VIR RBC COUNT 2.69 X10E12/L Low 4.1-5.7 [facility] Comment on above: Performed By: #### I MAGN #### [facility] ([facility]) [address] [place] [address] VIR WBC (Bld) [#/Vol] 13.3 10*3/uL High 4-11 [facility] Comment on above: Performed By: #### I MAGN #### [facility] ([facility]) [address] [place] [address] VIR FL SWALLOW MOTILITY FUNCTION on 01-06-2025 FL SWALLOW MOTILITY FUNCTION FL SWALLOW MOTILITY FUNCTION FL SWALLOW MOTILITY FUNCTION HISTORY: Oropharyngeal dysphagia COMPARISON: 03/12/2020 TECHNIQUE: Video fluoroscopic swallow study was performed in conjunction with speech pathologist. Barium contrast materials of varying consistencies administered. FINDINGS: Reference air kerma: 1.4 mGy Thin: Aspiration Mildly thick: Aspiration Moderately thick: No penetration or aspiration within drinking from cup. Laryngeal penetration when drinking from straw. Applesauce: No penetration or aspiration. Fruit: No penetration or aspiration. Cracker: No penetration or aspiration. IMPRESSION: 1. Abnormal swallow study as detailed above. 2. Please see speech pathology note for additional details and recommendations. Approved by Christiana Martinez DO on 01/06/2025 10:34 AM IRamez DO have personally reviewed the image(s) and agree with and/or edited the report Finalized by Ramez Morales DO on 01/06/2025 10:38 AM Normal [facility] POTASSIUMon 01-06-2025 Potassium [Moles/Vol] 4.4 mmol/L Normal 3.5-5.0 [facility] Comment on above: Performed By: #### H RTN #### [facility] ([facility]) [address] [place] [address] VIR PROTIME AND INRon 01-06-2025 INR 1.6 High 0.9-1.2 [facility] Comment on above: Performed By: #### H RTN #### [facility] ([facility]) [address] [place] [address] VIR PT Coag (PPP) [Time] 18.4 s High 9.8-13.2 [facility] Comment on above: Performed By: #### H RTN #### [facility] ([facility]) [address] [place] [address] VIR INR 1.5 High 0.9-1.2 [facility] Comment on above: Performed By: #### H RTN #### [facility] ([facility]) [address] [place] [address] VIR PT Coag (PPP) [Time] 17.2 s High 9.8-13.2 [facility] Comment on above: Performed By: #### H RTN #### [facility] ([facility]) [address] [place] [address] VIR XR CHEST 1 VWon 01-06-2025 XR CHEST 1 VW XR CHEST 1 VW Single view chest XR CHEST 1 VW History: Assess congestion, atelectasis and right pleural effusion. Comparison: January 05 Impression: * Bilateral congestion and effusions and bibasilar consolidation similar to prior study. Tubes and lines unchanged. Finalized by Jabari Bridges MD on 01/06/2025 6:10 AM Normal [facility] Mayuri 01-05-2025 ALT [Catalytic activity/Vol] 5 U/L Normal <=40 [facility] Comment on above: Performed By: #### I MAGN #### [facility] ([facility]) [address] [place] [address] VIR Dominic 01-05-2025 AST [Catalytic activity/Vol] 16 U/L Normal <=41 [facility] Comment on above: Performed By: #### I MAGN #### [facility] ([facility]) [address] [place] [address] VIR BASIC METABOLIC PANELon BASIC METABOLIC PANEL BMP BASIC METABOLI C PANEL Cancelled Normal [facility] Anion gap [Moles/Vol] 8 mmol/L Normal 5-15 [facility] Comment on above: Performed By: #### A FAB5 #### [facility] ([facility]) [address] [place] [address] VIR Calcium [Mass/Vol] 8.1 mg/dL Low 8.5-10.5 [facility] Comment on above: Performed By: #### A FAB5 #### [facility] ([facility]) [address] [place] [address] VIR Chloride [Moles/Vol] 109 mmol/L Normal 98-109 [facility] Comment on above: Performed By: #### A FAB5 #### [facility] ([facility]) [address] [place] [address] VIR CO2 [Moles/Vol] 27 mmol/L Normal 22-32 [facility] Comment on above: Performed By: #### A FAB5 #### [facility] ([facility]) [address] [place] [address] VIR Creatinine [Mass/Vol] 1.05 mg/dL Normal 0.60-1.30 [facility] Comment on above: Result Comment: METH OD TRACEABLE TO IDMS STANDARD Performed By: #### A FAB5 #### [facility] ([facility]) [address] [place] [address] VIR GFR/1.73 sq M.predicted among non-blacks MDRD (S/P/Bld) [Vol rate/Area] 72 mL/min/{1.73_m2} Normal >=60 [facility] Comment on above: Result Comment: Repo rted eGFR is based on the CKD-EPI 2020 equation that does not use a race coefficient. Performed By: #### A FAB5 #### [facility] ([facility]) [address] [place] [address] VIR Glucose [Mass/Vol] 139 mg/dL High 65-99 [facility] Comment on above: Performed By: #### A FAB5 #### [facility] ([facility]) [address] [place] [address] VIR Potassium [Moles/Vol] 4.1 mmol/L Normal 3.5-5.0 [facility] Comment on above: Performed By: #### A FAB5 #### [facility] ([facility]) [address] [place] [address] VIR Sodium [Moles/Vol] 144 mmol/L Normal 134-146 [facility] Comment on above: Performed By: #### A FAB5 #### [facility] ([facility]) [address] [place] [address] VIR Urea nitrogen [Mass/Vol] 28 mg/dL High 5-27 [facility] Comment on above: Performed By: #### A FAB5 #### [facility] ([facility]) [address] [place] [address] VIR BEDSIDE GLUCOSEon 01-05-2025 Glucose [Mass/Vol] 122 mg/dL High 65-99 [facility] Comment on above: Performed By: #### I MAGN #### [facility] ([facility]) [address] [place] [address] VIR Glucose [Mass/Vol] 129 mg/dL High 65-99 [facility] Comment on above: Performed By: #### I MAGN #### [facility] ([facility]) [address] [place] [address] VIR Glucose [Mass/Vol] 134 mg/dL High 65-99 [facility] Comment on above: Performed By: #### I MAGN #### [facility] ([facility]) [address] [place] [address] VIR CBC (NO DIFF)on 01-05-2025 Erythrocyte distribution width (RBC) [Ratio] 15.7 % High 11.5-15 [facility] Comment on above: Performed By: #### A FAB5 #### [facility] ([facility]) [address] [place] [address] VIR Hematocrit (Bld) [Volume fraction] 26.5 % Low 39-50 [facility] Comment on above: Performed By: #### A FAB5 #### [facility] ([facility]) [address] [place] [address] VIR Hemoglobin (Bld) [Mass/Vol] 9.0 g/dL Low 13-17 [facility] Comment on above: Performed By: #### A FAB5 #### [facility] ([facility]) [address] [place] [address] VIR MCH (RBC) [Entitic mass] 30.7 pg Normal 27-34 [facility] Comment on above: Performed By: #### A FAB5 #### [facility] ([facility]) [address] [place] [address] VIR MCHC (RBC) [Mass/Vol] 34.0 g/dL Normal 32-36 [facility] Comment on above: Performed By: #### A FAB5 #### [facility] ([facility]) [address] [place] [address] VIR MCV (RBC) [Entitic vol] 90 fL Normal 80-100 [facility] Comment on above: Performed By: #### A FAB5 #### [facility] ([facility]) [address] [place] [address] VIR Platelet mean volume (Bld) [Entitic vol] 8.9 fL Normal 7-12 [facility] Comment on above: Performed By: #### A FAB5 #### [facility] ([facility]) [address] [place] [address] VIR Platelets (Bld) [#/Vol] 90 10*3/uL Low 150-450 [facility] Comment on above: Performed By: #### A FAB5 #### [facility] ([facility]) [address] [place] [address] VIR RBC COUNT 2.94 X10E12/L Low 4.1-5.7 [facility] Comment on above: Performed By: #### A FAB5 #### [facility] ([facility]) [address] [place] [address] VIR WBC (Bld) [#/Vol] 16.6 10*3/uL High 4-11 [facility] Comment on above: Performed By: #### A FAB5 #### [facility] ([facility]) [address] [place] [address] VIR IONIZED CALCIUMon 01-05-2025 IONIZED CALCIUM - ICAN 4.6 mg/dL Normal 4.5-5.3 Pr [facility] Comment on above: Performed By: #### A FAB5 #### [facility] ([facility]) [address] [place] [address] VIR IONIZED CALCIUM - ICAN 4.6 mg/dL Normal 4.5-5.3 Pr [facility] Comment on above: Performed By: #### A FAB5 #### [facility] ([facility]) [address] [place] [address] VIR IONIZED MAGNESIUMon 01-06-20 Magnesium [Moles/Vol] 0.64 mmol/L Normal 0.45-0.74 Pr [facility] Comment on above: Performed By: #### A FAB5 #### [facility] ([facility]) [address] [place] [address] VIR Magnesium [Moles/Vol] 0.66 mmol/L Normal 0.45-0.74 [facility] Comment on above: Performed By: #### A FAB5 #### [facility] ([facility]) [address] [place] [address] VIR MAGNESIUMon 01-05-2025 Magnesium [Mass/Vol] 2.3 mg/dL Normal 1.8-2.6 [facility] Comment on above: Performed By: #### I MAGN #### [facility] ([facility]) [address] [place] [address] VIR PHOSPHORUSon 01-05-2025 Phosphate [Mass/Vol] 3.8 mg/dL Normal 2.4-4.9 [facility] Comment on above: Performed By: #### A FAB5 #### [facility] ([facility]) [address] [place] [address] VIR POTASSIUMon 01-05-2025 Potassium [Moles/Vol] 3.7 mmol/L Normal 3.5-5.0 [facility] Comment on above: Performed By: #### I MAGN #### [facility] ([facility]) [address] [place] [address] VIR Potassium [Moles/Vol] 3.9 mmol/L Normal 3.5-5.0 [facility] Comment on above: Performed By: #### A FAB5 #### [facility] ([facility]) [address] [place] [address] VIR PROTIME AND INRon 01-05-2025 INR 1.3 High 0.9-1.2 [facility] Comment on above: Performed By: #### A FAB5 #### [facility] ([facility]) [address] [place] [address] VIR PT Coag (PPP) [Time] 14.6 s High 9.8-13.2 [facility] Comment on above: Performed By: #### A FAB5 #### [facility] ([facility]) [address] [place] [address] VIR TSHon 01-05-2025 TSH 2.31 uIU/mL Normal 0.49-4.67 [facility] Comment on above: Performed By: #### I MAGN #### [facility] ([facility]) [address] [place] [address] VIR XR CHEST 1 VWon 01-05-2025 XR CHEST 1 VW XR CHEST 1 VW XR CHEST 1 VW HISTORY: Postop cardiac surgery COMPARISON: 01/04/2025 FINDINGS: AP portable semiupright expiratory radiograph obtained. Stable lines and tubes. There is no measurable pneumothorax. Similar right greater than left pleural effusions and bibasilar atelectasis. Stable cardiomediastinal silhouette. IMPRESSION: * Stable lines and tubes. * No detectable pneumothorax. * Stable right greater than left pleural effusions and bibasilar atelectasis. Approved by Christiana Martinez DO on 01/05/2025 6:20 AM Ramez Salvador DO have personally reviewed the image(s) and agree with and/or edited the report Finalized by Ramez Morales DO on 01/05/2025 6:36 AM Normal [facility] APTTon 01-04-2025 aPTT Coag (Bld) [Time] 26 s Normal 26-37 Pr [facility] Comment on above: Performed By: #### I PRO #### [facility] ([facility]) [address] [place] [address] VIR BASIC METABOLIC PANELon -3 Anion gap [Moles/Vol] 14 mmol/L Normal 5-15 Pro [facility] Comment on above: Performed By: #### I PRO #### [facility] ([facility]) [address] [place] [address] VIR Calcium [Mass/Vol] 8.2 mg/dL Low 8.5-10.5 [facility] Comment on above: Performed By: #### I PRO #### [facility] ([facility]) [address] [place] [address] VIR Chloride [Moles/Vol] 108 mmol/L Normal 98-109 [facility] Comment on above: Performed By: #### I PRO #### [facility] ([facility]) [address] [place] [address] VIR CO2 [Moles/Vol] 24 mmol/L Normal 22-32 [facility] Comment on above: Performed By: #### I PRO #### [facility] ([facility]) [address] [place] [address] VIR Creatinine [Mass/Vol] 1.17 mg/dL Normal 0.60-1.30 [facility] Comment on above: Result Comment: METH OD TRACEABLE TO IDMS STANDARD Performed By: #### I PRO #### [facility] ([facility]) [address] [place] [address] VIR GFR/1.73 sq M.predicted among non-blacks MDRD (S/P/Bld) [Vol rate/Area] 63 mL/min/{1.73_m2} Normal >=60 [facility] Comment on above: Result Comment: Repo rted eGFR is based on the CKD-EPI 2020 equation that does not use a race coefficient. Performed By: #### I PRO #### [facility] ([facility]) [address] [place] [address] VIR Glucose [Mass/Vol] 202 mg/dL High 65-99 [facility] Comment on above: Performed By: #### I PRO #### [facility] ([facility]) [address] [place] [address] VIR Potassium [Moles/Vol] 4.1 mmol/L Normal 3.5-5.0 [facility] Comment on above: Performed By: #### I PRO #### [facility] ([facility]) [address] [place] [address] VIR Sodium [Moles/Vol] 146 mmol/L Normal 134-146 [facility] Comment on above: Performed By: #### I PRO #### [facility] ([facility]) [address] [place] [address] VIR Urea nitrogen [Mass/Vol] 25 mg/dL Normal 5-27 [facility] Comment on above: Performed By: #### I PRO #### [facility] ([facility]) [address] [place] [address] VIR Anion gap [Moles/Vol] 10 mmol/L Normal 5-15 [facility] Comment on above: Performed By: #### P INR, CMP, HA1C, CBC, 15863-3 #### [facility] ([id number]) [address] [place] [address] Calcium [Mass/Vol] 8.1 mg/dL Low 8.5-10.5 [facility] Comment on above: Performed By: #### P INR, CMP, HA1C, CBC, 74502-4 #### [facility] ([id number]) [address] [place] [address] Chloride [Moles/Vol] 108 mmol/L Normal 98-109 [facility] Comment on above: Performed By: #### P INR, CMP, HA1C, CBC, 33112-2 #### [facility] ([id number]) [address] [place] [address] CO2 [Moles/Vol] 27 mmol/L Normal 22-32 [facility] Comment on above: Performed By: #### P INR, CMP, HA1C, CBC, 00477-2 #### [facility] ([id number]) [address] [address] [place] [address] Creatinine [Mass/Vol] 0.94 mg/dL Normal 0.60-1.30 [facility] Comment on above: Result Comment: METH OD TRACEABLE TO IDMS STANDARD Performed By: #### P INR, CMP, HA1C, CBC, 90308-0 #### [facility] ([id number]) [address] [address] [place] [address] GFR/1.73 sq M.predicted among non-blacks MDRD (S/P/Bld) [Vol rate/Area] 82 mL/min/{1.73_m2} Normal >=60 [facility] Comment on above: Result Comment: Repo rted eGFR is based on the CKD-EPI 2020 equation that does not use a race coefficient. Performed By: #### P INR, CMP, HA1C, CBC, 76270-1 #### [facility] ([id number]) [address] [address] [place] [address] Glucose [Mass/Vol] 96 mg/dL Normal 65-99 [facility] Comment on above: Performed By: #### P INR, CMP, HA1C, CBC, 38627-4 #### [facility] ([id number]) [address] [address] [place] [address] Potassium [Moles/Vol] 3.8 mmol/L Normal 3.5-5.0 [facility] Comment on above: Performed By: #### P INR, CMP, HA1C, CBC, 71598-5 #### [facility] ([id number]) [address] [address] [place] [address] Sodium [Moles/Vol] 145 mmol/L Normal 134-146 [facility] Comment on above: Performed By: #### P INR, CMP, HA1C, CBC, 44002-6 #### [facility] ([id number]) [address] [address] [place] [address] Urea nitrogen [Mass/Vol] 20 mg/dL Normal 5-27 [facility] Comment on above: Performed By: #### P INR, CMP, HA1C, CBC, 31035-2 #### [facility] ([id number]) [address] [place] [address] BEDSIDE GLUCOSEon 01-04-2025 Glucose [Mass/Vol] 178 mg/dL High 65-99 [facility] Comment on above: Performed By: #### I PRO #### [facility] ([facility]) [address] [place] [address] VIR Glucose [Mass/Vol] 198 mg/dL High [address] [place] [address] Comment on above: Performed By: #### I PRO #### [facility] ([facility]) [address] [place] [address] VIR Glucose [Mass/Vol] 146 mg/dL High [facility]99 [facility] Comment on above: Performed By: #### P INR, CMP, HA1C, CBC, 43061-8 #### [facility] ([id number]) [address] [place] [address] Glucose [Mass/Vol] 104 mg/dL High 65-99 [facility] Comment on above: Performed By: #### P INR, CMP, HA1C, CBC, 54762-1 #### [facility] ([id number]) [address], [address] [place] [address] CBC (NO DIFF)on 01-04-2025 Erythrocyte distribution width (RBC) [Ratio] 14.5 % Normal 11.5-15 [facility] Comment on above: Performed By: #### P INR, CMP, HA1C, CBC, 56853-2 #### [facility] ([id number]) [address] [place] [address] Hematocrit (Bld) [Volume fraction] 30.8 % Low 39-50 [facility] Comment on above: Performed By: #### P INR, CMP, HA1C, CBC, 02531-6 #### [facility] ([id number]) [address] [place] [address] Hemoglobin (Bld) [Mass/Vol] 10.8 g/dL Low 13-17 [facility] Comment on above: Performed By: #### P INR, CMP, HA1C, CBC, 81192-5 #### [facility] ([id number]) [address], [facility] [address] [place] [address] MCH (RBC) [Entitic mass] 31.8 pg Normal 27-34 [facility] Comment on above: Performed By: #### P INR, CMP, HA1C, CBC, 06928-9 #### [facility] ([id number]) [address], [facility] [address] [place] [address] MCHC (RBC) [Mass/Vol] 35.1 g/dL Normal 32-36 [facility] Comment on above: Performed By: #### P INR, CMP, HA1C, CBC, 33891-4 #### [facility] ([id number]) [address], [facility] [address] [place] [address] MCV (RBC) [Entitic vol] 91 fL Normal 80-100 [facility] Comment on above: Performed By: #### P INR, CMP, HA1C, CBC, 98751-6 #### [facility] ([id number]) [address], [facility] [address] [place] [address] Platelet mean volume (Bld) [Entitic vol] 8.6 fL Normal 7-12 [facility] Comment on above: Performed By: #### P INR, CMP, HA1C, CBC, 80036-6 #### [facility] ([id number]) [address] [place] [address] Platelets (Bld) [#/Vol] 111 10*3/uL Low 150-450 [facility] Comment on above: Performed By: #### P INR, CMP, HA1C, CBC, 97734-6 #### [facility] ([id number]) [address] [place] [address] RBC COUNT 3.40 X10E12/L Low 4.1-5.7 [facility] Comment on above: Performed By: #### P INR, CMP, HA1C, CBC, 65064-7 #### [facility] ([id number]) [address] [place] [address] WBC (Bld) [#/Vol] 12.5 10*3/uL High 4-11 [facility] Comment on above: Performed By: #### P INR, CMP, HA1C, CBC, 86787-2 #### [facility] ([id number]) [address] [place] [address] CBC WITH AUTO DIFFERENTIALon 01-04-2025 CELLAVISION DIFFERENTIAL TYPE MANUAL DIFFERENTIAL Normal [facility] Comment on above: Result Comment: This is an appended report. These results have been appended to a previously preliminary verified report. Performed By: #### I PRO #### [facility] ([facility]) [address] [place] [address] VIR CELLAVISION LYMPHOCYTES ABSOLUTE COUNT (10*3/UL) BY MANUAL COUNT 0.5 10*3/uL Normal [facility] Comment on above: Result Comment: This is an appended report. These results have been appended to a previously preliminary verified report. Performed By: #### I PRO #### [facility] ([facility]) [address] [place] [address] VIR CELLAVISION LYMPHOCYTES RELATIVE PERCENT BY MANUAL COUNT 3 % Normal [facility] Comment on above: Result Comment: This is an appended report. These results have been appended to a previously preliminary verified report. Performed By: #### I PRO #### [facility] ([facility]) [address] [place] [address] VIR CELLAVISION MONOCYTES ABSOLUTE COUNT (10*3/UL) IN BLOOD BY MANUAL COUNT 1.8 10*3/uL Normal [facility] Comment on above: Result Comment: This is an appended report. These results have been appended to a previously preliminary verified report. Performed By: #### I PRO #### [facility] ([facility]) [address] [place] [address] VIR CELLAVISION MONOCYTES RELATIVE PERCENT BY MANUAL COUNT 10 % Normal [facility] Comment on above: Result Comment: This is an appended report. These results have been appended to a previously preliminary verified report. Performed By: #### I PRO #### [facility] ([facility]) [address] [place] [address] VIR CELLAVISION NEUTROPHILS ABSOLUTE COUNT BY MANUAL COUNT 15.4 10*3/uL Normal [facility] Comment on above: Result Comment: This is an appended report. These results have been appended to a previously preliminary verified report. Performed By: #### I PRO #### [facility] ([facility]) [address] [place] [address] VIR CELLAVISION NEUTROPHILS RELATIVE PERCENT BY MANUAL COUNT 87 % Normal [facility] Comment on above: Result Comment: This is an appended report. These results have been appended to a previously preliminary verified report. Performed By: #### I PRO #### [facility] ([facility]) [address] [place] [address] VIR Erythrocyte distribution width (RBC) [Ratio] 15.6 % High 11.5-15 [facility] Comment on above: Performed By: #### I PRO #### [facility] ([facility]) [address] [place] [address] VIR Hematocrit (Bld) [Volume fraction] 30.2 % Low 39-50 [facility] Comment on above: Performed By: #### I PRO #### [facility] ([facility]) [address] [place] [address] VIR Hemoglobin (Bld) [Mass/Vol] 10.4 g/dL Low 13-17 [facility] Comment on above: Performed By: #### I PRO #### [facility] ([facility]) [address] [place] [address] VIR MCH (RBC) [Entitic mass] 31.1 pg Normal 27-34 [facility] Comment on above: Performed By: #### I PRO #### [facility] ([facility]) [address] [place] [address] VIR MCHC (RBC) [Mass/Vol] 34.4 g/dL Normal 32-36 [facility] Comment on above: Performed By: #### I PRO #### [facility] ([facility]) [address] [place] [address] VIR MCV (RBC) [Entitic vol] 90 fL Normal 80-100 [facility] Comment on above: Performed By: #### I PRO #### [facility] ([facility]) [address] [place] [address] VIR Platelet mean volume (Bld) [Entitic vol] 9.0 fL Normal 7-12 [facility] Comment on above: Performed By: #### I PRO #### [facility] ([facility]) [address] [place] [address] VIR Platelets (Bld) [#/Vol] 105 10*3/uL Low 150-450 [facility] Comment on above: Performed By: #### I PRO #### [facility] ([facility]) [address] [place] [address] VIR RBC COUNT 3.34 X10E12/L Low 4.1-5.7 [facility] Comment on above: Performed By: #### I PRO #### [facility] ([facility]) [address] [place] [address] VIR WBC (Bld) [#/Vol] 17.7 10*3/uL High 4-11 [facility] Comment on above: Performed By: #### I PRO #### [facility] ([facility]) [address] [place] [address] VIR FIBRINOGENon 01-04-2025 FIBRINOGEN 244 mg/dL Normal 190-480 [facility] Comment on above: Performed By: #### I PRO #### [facility] ([facility]) [address] [place] [address] VIR HEMOGLOBIN AND HEMATOCRIT, B LOODon 01-04-2025 Hematocrit (Bld) [Volume fraction] 30.1 % Low 39-50 [facility] Comment on above: Performed By: #### I PRO #### [facility] ([facility]) [address] [place] [address] VIR Hemoglobin (Bld) [Mass/Vol] 10.4 g/dL Low 13-17 [facility] Comment on above: Performed By: #### I PRO #### [facility] ([facility]) [address] [place] [address] VIR IONIZED CALCIUMon 01-04-2025 IONIZED CALCIUM - ICAN 4.7 mg/dL Normal 4.5-5.3 Pr [facility] Comment on above: Performed By: #### P INR, CMP, HA1C, CBC, 50460-2 #### [facility] ([id number]) [address] [place] [address] IONIZED MAGNESIUMon 01-05-20 25 Magnesium [Moles/Vol] 0.61 mmol/L Normal 0.45-0.74 Pr [facility] Comment on above: Performed By: #### P INR, CMP, HA1C, CBC, 77604-3 #### [facility] ([id number]) [address] [place] [address] PHOSPHORUSon 01-04-2025 Phosphate [Mass/Vol] 4.5 mg/dL Normal 2.4-4.9 [facility] Comment on above: Performed By: #### P INR, CMP, HA1C, CBC, 06806-4 #### [facility] ([id number]) [address] [place] [address] POCT ABG RAPID K GLU ICA HHo n 01-04-2025 BASE,DEFICIT -5.9 mmol/L Low 0.0-2.0 [facility] Comment on above: Performed By: #### I PRO #### [facility] ([facility]) [address] [place] [address] VIR Body temperature 98.6 [degF] Normal >=37 [facility] Comment on above: Performed By: #### I PRO #### [facility] ([facility]) [address] [place] [address] VIR Glucose [Mass/Vol] 185 mg/dL High 65-99 [facility] Comment on above: Performed By: #### I PRO #### [facility] (TT) [address] [place] [address] VIR HCO3 (Bld) [Moles/Vol] 21.0 mmol/L Low 22.0-26.0 [facility] Comment on above: Performed By: #### I PRO #### [facility] ([facility]) [address] [place] [address] VIR Hematocrit (Bld) [Volume fraction] 32 % Critically low 39-47 [facility] Comment on above: Performed By: #### I PRO #### [facility] (TT) [address] [place] [address] VIR Hemoglobin (Bld) [Mass/Vol] 10.5 g/dL Low 13.0-17.0 [facility] Comment on above: Performed By: #### I PRO #### [facility] (TT) [address] [facility] [place] [address] VIR INSP. O2 CONC. 100.0 % Normal [facility] Comment on above: Performed By: #### I PRO #### [facility] ([facility]) [address] [place] [address] VIR Oxygen saturation in Blood 100.2 % Normal >90.0 [facility] Comment on above: Performed By: #### I PRO #### [facility] ([facility]) [address] [place] [address] VIR PCO2 ARTERIAL 45.5 mmHg High 35.0-45.0 [facility] Comment on above: Performed By: #### I PRO #### [facility] ([facility]) [address] [place] [address] VIR PH ARTERIAL 7.271 Low 7.350-7.45 0 [facility] Comment on above: Performed By: #### I PRO #### [facility] ([facility]) [address] [place] [address] VIR PO2 ARTERIAL 300 mmHg High 80-100 [facility] Comment on above: Performed By: #### I PRO #### [facility] ([facility]) [address] [place] [address] VIR POC BEATRIZ'S TEST Normal [facility] Comment on above: Performed By: #### I PRO #### [facility] ([facility]) [address] [place] [address] VIR PORTABLE ICA 4.6 mg/dL Normal 4.5-5.3 [facility] Comment on above: Performed By: #### I PRO #### [facility] ([facility]) [address] [place] [address] VIR Potassium [Moles/Vol] 4.1 mmol/L Normal 3.5-5.0 [facility] Comment on above: Performed By: #### I PRO #### [facility] ([facility]) [address] [place] [address] VIR SAMPLE SITE A LINE Normal [facility] Comment on above: Performed By: #### I PRO #### [facility] ([facility]) [address] [place] [address] VIR SAMPLE TYPE Arterial Normal [facility] Comment on above: Performed By: #### I PRO #### [facility] ([facility]) [address] [place] [address] VIR PROTIME AND INRon 01-04-2025 INR 1.1 Normal 0.9-1.2 [facility] Comment on above: Performed By: #### I PRO #### [facility] ([facility]) [address] [place] [address] VIR PT Coag (PPP) [Time] 12.4 s Normal 9.8-13.2 [facility] Comment on above: Performed By: #### I PRO #### [facility] ([facility]) [address] [place] [address] VIR INR 1.2 Normal 0.9-1.2 [facility] Comment on above: Performed By: #### P INR, CMP, HA1C, CBC, 39133-7 #### [facility] ([id number]) [address] [place] [address] PT Coag (PPP) [Time] 13.5 s High 9.8-13.2 [facility] Comment on above: Performed By: #### P INR, CMP, HA1C, CBC, 30985-9 #### [facility] ([id number]) [address] [place] [address] XR CHEST 1 VWon 01-04-2025 XR CHEST 1 VW XR CHEST 1 VW HISTORY: Pneumothorax COMPARISON: Chest x-ray 01/04/2025 FINDINGS: Portable AP upright view of the chest was performed during expiration. The pulmonary artery catheter has been removed. Right-sided venous catheter terminates in the SVC. Multiple large bore chest drains are present. No definitive pneumothorax with lung markings that appear to extend to the pleural surface. Mild pulmonary edema. Bilateral pleural effusions. Stable cardiac silhouette. IMPRESSION: * No definitive pneumothorax. * Mild pulmonary edema with bilateral pleural effusions and bibasilar atelectasis. Finalized by Delgado Ricci MD on 01/04/2025 1:24 PM Normal [facility] XR CHEST 1 VW XR CHEST 1 VW CLINICAL HISTORY: Post open heart Comparison: 01/03/2025 Views: 1 view FINDINGS: * [place] catheter overlies main pulmonary artery. * Central line from below overlies right atrium. Mediastinal drain in place. Small effusions and atelectasis. Heart size stable. * 2.5 cm pneumothorax right apex mass. IMPRESSION: * Extensive pleural-parenchymal abnormalities similar to previous exam. * Right apical pneumothorax without mass effect. This is a new finding. Finalized by Booker Le MD on 01/04/2025 6:20 AM Normal [facility] APTTon 01-03-2025 aPTT Coag (Bld) [Time] 34 s Normal 26-37 Pr [facility] Comment on above: Performed By: #### P INR, CMP, HA1C, CBC, 87808-5 #### [facility] ([id number]) [address] [place] [address] BEDSIDE GLUCOSEon 01-03-2025 Glucose [Mass/Vol] 128 mg/dL High 65-99 [facility] Comment on above: Performed By: #### P INR, CMP, HA1C, CBC, 02135-4 #### [facility] ([id number]) [address] [place] [address] Glucose [Mass/Vol] 114 mg/dL High 65-99 [facility] Comment on above: Performed By: #### P INR, CMP, HA1C, CBC, 85695-3 #### [facility] ([id number]) [address] [place] [address] Glucose [Mass/Vol] 113 mg/dL High 65-99 [facility] Comment on above: Performed By: #### P INR, CMP, HA1C, CBC, 44055-7 #### [facility] ([id number]) [address] [place] [address] Glucose [Mass/Vol] 148 mg/dL High [address] [place] [address] Comment on above: Performed By: #### P INR, CMP, HA1C, CBC, 56324-1 #### [facility] ([id number]) [address] [place] [address] Glucose [Mass/Vol] 156 mg/dL High [facility]99 [facility] Comment on above: Performed By: #### P INR, CMP, HA1C, CBC, 42442-4 #### [facility] ([id number]) [address] [place] [address] Glucose [Mass/Vol] 143 mg/dL High [facility] Comment on above: Performed By: #### P INR, CMP, HA1C, CBC, 22683-6 #### [facility] ([id number]) [address] [place] [address] Glucose [Mass/Vol] 158 mg/dL High [address] [place] [address] Comment on above: Performed By: #### P INR, CMP, HA1C, CBC, 07137-2 #### [facility] ([id number]) [address] [place] [address] Glucose [Mass/Vol] 164 mg/dL High [address] [place] [address] Comment on above: Performed By: #### P INR, CMP, HA1C, CBC, 72435-5 #### [facility] ([id number]) [address] [place] [address] BLOOD GAS, ARTERIALon 2024 BASE,EXCESS 2.4 mmol/L High 0.0-2.0 [facility] Comment on above: Performed By: #### P INR, CMP, HA1C, CBC, 04853-4 #### [facility] ([id number]) [address] [place] [address] Body temperature 98.6 [degF] Normal >=37 [facility] Comment on above: Performed By: #### P INR, CMP, HA1C, CBC, 83902-0 #### [facility] ([id number]) [address] [place] [address] HCO3 (Bld) [Moles/Vol] 25.7 mmol/L Normal 22.0-26.0 [facility] Comment on above: Performed By: #### P INR, CMP, HA1C, CBC, 94542-6 #### [facility] ([id number]) [address] [place] [address] INSP. O2 CONC. 100.0 % Normal [facility] Comment on above: Performed By: #### P INR, CMP, HA1C, CBC, 29018-7 #### [facility] ([id number]) [address] [place] [address] Oxygen saturation in Blood 100.7 % Normal >90.0 [facility] Comment on above: Performed By: #### P INR, CMP, HA1C, CBC, 15406-9 #### [facility] ([id number]) [address] [place] [address] PCO2 ARTERIAL 33.7 mmHg Low 35.0-45.0 [facility] Comment on above: Performed By: #### P INR, CMP, HA1C, CBC, 67299-9 #### [facility] ([id number]) [address] [place] [address] PH ARTERIAL 7.491 High 7.350-7.45 0 [facility] Comment on above: Performed By: #### P INR, CMP, HA1C, CBC, 73612-0 #### [facility] ([id number]) [address] [place] [address] PO2 ARTERIAL 299 mmHg High 80-100 [facility] Comment on above: Performed By: #### P INR, CMP, HA1C, CBC, 00140-0 #### [facility] ([id number]) [address] [place] [address] POC BEATRIZ'S TEST Normal [facility] Comment on above: Performed By: #### P INR, CMP, HA1C, CBC, 44603-2 #### [facility] ([id number]) [address], [address] [place] [address] SAMPLE SITE A LINE Normal [facility] Comment on above: Performed By: #### P INR, CMP, HA1C, CBC, 94255-2 #### [facility] ([id number]) [address], [address] [place] [address] SAMPLE TYPE Arterial Normal [facility] Comment on above: Performed By: #### P INR, CMP, HA1C, CBC, 21961-5 #### [facility] ([id number]) [address], [address] [place] [address] BUNon 01-03-2025 Urea nitrogen [Mass/Vol] 15 mg/dL Normal 5-27 [facility] Comment on above: Performed By: #### P INR, CMP, HA1C, CBC, 76722-3 #### [facility] ([id number]) [address], [address] [place] [address] CBC (NO DIFF)on 01-03-2025 CBC panel Auto (Bld) CBC CBC (NO DIFF) Cancelled Normal [facility] CBC WITH AUTO DIFFERENTIALon 01-03-2025 BASOPHILS ABSOLUTE COUNT (10*3/UL) BY AUTOMATED COUNT 0.0 10*3/uL Normal [facility] Comment on above: Performed By: #### P INR, CMP, HA1C, CBC, 99567-2 #### [facility] ([id number]) [address] [address] [place] [address] BASOPHILS RELATIVE PERCENT BY AUTOMATED COUNT 0.1 % Normal [facility] Comment on above: Performed By: #### P INR, CMP, HA1C, CBC, 18586-6 #### [facility] ([id number]) [address] [address] CELLAVISION DIFFERENTIAL TYPE AUTOMATED DIFFERENTIAL Normal [facility] Comment on above: Performed By: #### P INR, CMP, HA1C, CBC, 65839-2 #### [facility] ([id number]) [address] [address] Eosinophils (Bld) [#/Vol] 0.0 10*3/uL Normal [facility] Comment on above: Performed By: #### P INR, CMP, HA1C, CBC, 86302-6 #### [facility] ([id number]) [address] [address] EOSINOPHILS RELATIVE PERCENT BY AUTOMATED COUNT 0.0 % Normal [facility] Comment on above: Performed By: #### P INR, CMP, HA1C, CBC, 48702-9 #### [facility] ([id number]) [address] [address] Erythrocyte distribution width (RBC) [Ratio] 14.1 % Normal 11.5-15 [facility] Comment on above: Performed By: #### P INR, CMP, HA1C, CBC, 37595-1 #### [facility] ([id number]) [address] [address] Hematocrit (Bld) [Volume fraction] 25.3 % Low 39-50 [facility] Comment on above: Performed By: #### P INR, CMP, HA1C, CBC, 14142-6 #### [facility] ([id number]) [address], [address] [place] [address] Hemoglobin (Bld) [Mass/Vol] 9.1 g/dL Low 13-17 [facility] Comment on above: Performed By: #### P INR, CMP, HA1C, CBC, 81131-4 #### [facility] ([id number]) [address] [address] [place] [address] LYMPHOCYTES ABSOLUTE COUNT (10*3/UL) BY AUTOMATED COUNT 0.4 10*3/uL Normal [facility] Comment on above: Performed By: #### P INR, CMP, HA1C, CBC, 85367-7 #### [facility] ([id number]) [address] [facility] [address] [place] [address] LYMPHOCYTES RELATIVE PERCENT BY AUTOMATED COUNT 3.7 % Normal [facility] Comment on above: Performed By: #### P INR, CMP, HA1C, CBC, 74728-5 #### [facility] ([id number]) [address] [address] [place] [address] MCH (RBC) [Entitic mass] 32.3 pg Normal 27-34 [facility] Comment on above: Performed By: #### P INR, CMP, HA1C, CBC, 55673-2 #### [facility] ([id number]) [address] [address] [place] [address] MCHC (RBC) [Mass/Vol] 35.9 g/dL Normal 32-36 [facility] Comment on above: Performed By: #### P INR, CMP, HA1C, CBC, 29396-4 #### [facility] ([id number]) [address] [address] [place] [address] MCV (RBC) [Entitic vol] 90 fL Normal 80-100 [facility] Comment on above: Performed By: #### P INR, CMP, HA1C, CBC, 08830-7 #### [facility] ([id number]) [address], [address] [place] [address] MONOCYTES ABSOLUTE COUNT (10*3/UL) BY AUTOMATED COUNT 0.7 10*3/uL Normal [facility] Comment on above: Performed By: #### P INR, CMP, HA1C, CBC, 09392-0 #### [facility] ([id number]) [address], [address] [place] [address] MONOCYTES RELATIVE PERCENT BY AUTOMATED COUNT 6.9 % Normal [facility] Comment on above: Performed By: #### P INR, CMP, HA1C, CBC, 96170-6 #### [facility] ([id number]) [address] [place] [address] NEUTROPHILS ABSOLUTE COUNT BY AUTOMATED COUNT 8.8 10*3/uL Normal [facility] Comment on above: Performed By: #### P INR, CMP, HA1C, CBC, 90909-3 #### [facility] ([id number]) [address] [place] [address] NEUTROPHILS RELATIVE PERCENT BY AUTOMATED COUNT 89.3 % Normal [facility] Comment on above: Performed By: #### P INR, CMP, HA1C, CBC, 55036-7 #### [facility] ([id number]) [address], [address] [place] [address] Platelet mean volume (Bld) [Entitic vol] 8.7 fL Normal 7-12 [facility] Comment on above: Performed By: #### P INR, CMP, HA1C, CBC, 25139-2 #### [facility] ([id number]) [address] [place] [address] Platelets (Bld) [#/Vol] 100 10*3/uL Low 150-450 [facility] Comment on above: Performed By: #### P INR, CMP, HA1C, CBC, 88703-9 #### [facility] ([id number]) [address], [address] [place] [address] RBC COUNT 2.81 X10E12/L Low 4.1-5.7 [facility] Comment on above: Performed By: #### P INR, CMP, HA1C, CBC, 78456-4 #### [facility] ([id number]) [address] [address] [place] [address] WBC (Bld) [#/Vol] 9.8 10*3/uL Normal 4-11 [facility] Comment on above: Performed By: #### P INR, CMP, HA1C, CBC, 30230-7 #### [facility] ([id number]) [address] [address] CREATININE, SERUMon 01-04-20 Creatinine [Mass/Vol] 0.79 mg/dL Normal 0.60-1.30 [facility] Comment on above: Result Comment: METH OD TRACEABLE TO IDMS STANDARD Performed By: #### P INR, CMP, HA1C, CBC, 33146-0 #### [facility] ([id number]) [address] [address] GFR/1.73 sq M.predicted among non-blacks MDRD (S/P/Bld) [Vol rate/Area] 90 mL/min/{1.73_m2} Normal >=60 [facility] Comment on above: Result Comment: Repo rted eGFR is based on the CKD-EPI 2020 equation that does not use a race coefficient. Performed By: #### P INR, CMP, HA1C, CBC, 64119-6 #### [facility] ([id number]) [address] [address] HEMOGLOBINon 01-03-2025 Hemoglobin (Bld) [Mass/Vol] 9.3 g/dL Low 13-17 [facility] Comment on above: Performed By: #### P INR, CMP, HA1C, CBC, 18558-9 #### [facility] ([id number]) [address] [place] [address] HEMOGLOBIN HGB HEMOGLOBIN Cancelled Normal [facility] HEMOGLOBIN AND HEMATOCRIT, B LOODon 01-03-2025 Hematocrit (Bld) [Volume fraction] 19.7 % Low 39-50 [facility] Comment on above: Performed By: #### P INR, CMP, HA1C, CBC, 74682-8 #### [facility] ([id number]) [address] [place] [address] Hemoglobin (Bld) [Mass/Vol] 6.8 g/dL Critically low 13-17 [facility] Comment on above: Performed By: #### P INR, CMP, HA1C, CBC, 64333-4 #### [facility] ([id number]) [address] [place] [address] Hematocrit (Bld) [Volume fraction] 26.1 % Low 39-50 [facility] Comment on above: Performed By: #### P INR, CMP, HA1C, CBC, 49659-1 #### [facility] ([id number]) [address] [place] [address] Hemoglobin (Bld) [Mass/Vol] 8.5 g/dL Low 13-17 [facility] Comment on above: Performed By: #### P INR, CMP, HA1C, CBC, 59085-0 #### [facility] ([id number]) [address] [place] [address] IONIZED CALCIUMon 01-03-2025 IONIZED CALCIUM - ICAN 5.0 mg/dL Normal 4.5-5.3 [facility] Comment on above: Performed By: #### P INR, CMP, HA1C, CBC, 01105-8 #### [facility] ([id number]) [address] [place] [address] IONIZED MAGNESIUMon 01-04-20 25 Magnesium [Moles/Vol] 0.65 mmol/L Normal 0.45-0.74 [facility] Comment on above: Performed By: #### P INR, CMP, HA1C, CBC, 48849-0 #### [facility] ([id number]) [address], [address] [place] [address] PLATELET COUNTon 01-03-2025 Platelets (Bld) [#/Vol] 119 10*3/uL Low 150-450 [facility] Comment on above: Performed By: #### P INR, CMP, HA1C, CBC, 62139-0 #### [facility] ([id number]) [address], [facility] [address] [place] [address] Platelets (Bld) [#/Vol] 87 10*3/uL Low 150-450 [facility] Comment on above: Performed By: #### P INR, CMP, HA1C, CBC, 58252-0 #### [facility] ([id number]) [address], [facility] [address] [place] [address] POCT ABG RAPID K GLU HHon BASE,EXCESS 0.9 mmol/L Normal 0.0-2.0 [facility] Comment on above: Performed By: #### P INR, CMP, HA1C, CBC, 73704-3 #### [facility] ([id number]) [address] [address] [place] [address] Body temperature 98.6 [degF] Normal >=37 [facility] Comment on above: Performed By: #### P INR, CMP, HA1C, CBC, 78603-8 #### [facility] ([id number]) [address] [address] [place] [address] Glucose [Mass/Vol] 161 mg/dL High 65-99 [facility] Comment on above: Performed By: #### P INR, CMP, HA1C, CBC, 40037-3 #### [facility] ([id number]) [address] [place] [address] HCO3 (Bld) [Moles/Vol] 24.4 mmol/L Normal 22.0-26.0 [facility] Comment on above: Performed By: #### P INR, CMP, HA1C, CBC, 92326-5 #### [facility] ([id number]) [address], [address] [place] [address] Hematocrit (Bld) [Volume fraction] 24 % Critically low 39-47 [facility] Comment on above: Performed By: #### P INR, CMP, HA1C, CBC, 13223-3 #### [facility] ([id number]) [address] [address] [place] [address] Hemoglobin (Bld) [Mass/Vol] 7.9 g/dL Low 13.0-17.0 [facility] Comment on above: Performed By: #### P INR, CMP, HA1C, CBC, 26172-7 #### [facility] ([id number]) [address] [place] [address] INSP. O2 CONC. 100.0 % Normal [facility] Comment on above: Performed By: #### P INR, CMP, HA1C, CBC, 62862-2 #### [facility] ([id number]) [address] [address] [place] [address] Oxygen saturation in Blood 100.5 % Normal >90.0 [facility] Comment on above: Performed By: #### P INR, CMP, HA1C, CBC, 35169-4 #### [facility] ([id number]) [address] [address] [place] [address] PCO2 ARTERIAL 32.8 mmHg Low 35.0-45.0 [facility] Comment on above: Performed By: #### P INR, CMP, HA1C, CBC, 19154-2 #### [facility] ([id number]) [address], [address] [place] [address] PH ARTERIAL 7.480 High 7.350-7.45 0 [facility] Comment on above: Performed By: #### P INR, CMP, HA1C, CBC, 63323-5 #### [facility] ([id number]) [address], [address] [place] [address] PO2 ARTERIAL 297 mmHg High 80-100 [facility] Comment on above: Performed By: #### P INR, CMP, HA1C, CBC, 77036-7 #### [facility] ([id number]) [address] [place] [address] POC BEATRIZ'S TEST Normal [facility] Comment on above: Performed By: #### P INR, CMP, HA1C, CBC, 49162-2 #### [facility] ([id number]) [address] [place] [address] Potassium [Moles/Vol] 4.4 mmol/L Normal 3.5-5.0 [facility] Comment on above: Performed By: #### P INR, CMP, HA1C, CBC, 45549-4 #### [facility] ([id number]) [address] [place] [address] SAMPLE SITE A LINE Normal [facility] Comment on above: Performed By: #### P INR, CMP, HA1C, CBC, 43418-3 #### [facility] ([id number]) [address] [place] [address] SAMPLE TYPE Arterial Normal [facility] Comment on above: Performed By: #### P INR, CMP, HA1C, CBC, 53170-8 #### [facility] ([id number]) [address] [place] [address] BASE,DEFICIT -2.0 mmol/L Low 0.0-2.0 [facility] Comment on above: Performed By: #### P INR, CMP, HA1C, CBC, 43449-9 #### [facility] ([id number]) [address], [address] [place] [address] Body temperature 98.6 [degF] Normal >=37 [facility] Comment on above: Performed By: #### P INR, CMP, HA1C, CBC, 20682-1 #### [facility] ([id number]) [address] [place] [address] Glucose [Mass/Vol] 151 mg/dL High 65-99 [facility] Comment on above: Performed By: #### P INR, CMP, HA1C, CBC, 14522-3 #### [facility] ([id number]) [address], [address] [place] [address] HCO3 (Bld) [Moles/Vol] 21.4 mmol/L Low 22.0-26.0 [facility] Comment on above: Performed By: #### P INR, CMP, HA1C, CBC, 25281-8 #### [facility] ([id number]) [address] [place] [address] Hematocrit (Bld) [Volume fraction] 23 % Critically low 39-47 [facility] Comment on above: Performed By: #### P INR, CMP, HA1C, CBC, 03998-7 #### [facility] ([id number]) [address], [address] [place] [address] Hemoglobin (Bld) [Mass/Vol] 7.4 g/dL Low 13.0-17.0 [facility] Comment on above: Performed By: #### P INR, CMP, HA1C, CBC, 53849-2 #### [facility] ([id number]) [address] [place] [address] INSP. O2 CONC. 100.0 % Normal [facility] Comment on above: Performed By: #### P INR, CMP, HA1C, CBC, 18996-4 #### [facility] ([id number]) [address] [place] [address] Oxygen saturation in Blood 100.5 % Normal >90.0 [facility] Comment on above: Performed By: #### P INR, CMP, HA1C, CBC, 53764-5 #### [facility] ([id number]) [address] [place] [address] PCO2 ARTERIAL 28.2 mmHg Low 35.0-45.0 [facility] Comment on above: Performed By: #### P INR, CMP, HA1C, CBC, 10105-5 #### [facility] ([id number]) [address] [place] [address] PH ARTERIAL 7.489 High 7.350-7.45 0 [facility] Comment on above: Performed By: #### P INR, CMP, HA1C, CBC, 02565-6 #### [facility] ([id number]) [address] [place] [address] PO2 ARTERIAL 370 mmHg High 80-100 [facility] Comment on above: Performed By: #### P INR, CMP, HA1C, CBC, 17568-8 #### [facility] ([id number]) [address] [place] [address] POC BEATRIZ'S TEST Normal [facility] Comment on above: Performed By: #### P INR, CMP, HA1C, CBC, 45023-1 #### [facility] ([id number]) [address] [place] [address] Potassium [Moles/Vol] 4.5 mmol/L Normal 3.5-5.0 [facility] Comment on above: Performed By: #### P INR, CMP, HA1C, CBC, 71404-0 #### [facility] ([id number]) [address], [address] [place] [address] SAMPLE SITE A LINE Normal [facility] Comment on above: Performed By: #### P INR, CMP, HA1C, CBC, 36338-8 #### [facility] ([id number]) [address] [place] [address] SAMPLE TYPE Arterial Normal [facility] Comment on above: Performed By: #### P INR, CMP, HA1C, CBC, 02355-1 #### [facility] ([id number]) [address] [place] [address] BASE,DEFICIT -0.9 mmol/L Low 0.0-2.0 [facility] Comment on above: Performed By: #### H RTN #### [facility] ([facility]) [address] [place] [address] VIR Body temperature 98.6 [degF] Normal >=37 [facility] Comment on above: Performed By: #### H RTN #### [facility] ([facility]) [address] [place] [address] VIR Glucose [Mass/Vol] 148 mg/dL High 65-99 [facility] Comment on above: Performed By: #### H RTN #### [facility] ([facility]) [address] [place] [address] VIR HCO3 (Bld) [Moles/Vol] 24.6 mmol/L Normal 22.0-26.0 [facility] Comment on above: Performed By: #### H RTN #### [facility] ([facility]) [address] [place] [address] VIR Hematocrit (Bld) [Volume fraction] 27 % Critically low 39-47 [facility] Comment on above: Performed By: #### H RTN #### [facility] ([facility]) [address] [place] [address] VIR Hemoglobin (Bld) [Mass/Vol] 8.7 g/dL Low 13.0-17.0 [facility] Comment on above: Performed By: #### H RTN #### [facility] ([facility]) [address] [place] [address] VIR INSP. O2 CONC. 100.0 % Normal [facility] Comment on above: Performed By: #### H RTN #### [facility] ([facility]) [address] [place] [address] VIR Oxygen saturation in Blood 100.5 % Normal >90.0 [facility] Comment on above: Performed By: #### H RTN #### [facility] ([facility]) [address] [place] [address] VIR PCO2 ARTERIAL 43.7 mmHg Normal 35.0-45.0 [facility] Comment on above: Performed By: #### H RTN #### [facility] ([facility]) [address] [place] [address] VIR PH ARTERIAL 7.358 Normal 7.350-7.45 0 [facility] Comment on above: Performed By: #### H RTN #### [facility] ([facility]) [address] [place] [address] VIR PO2 ARTERIAL 371 mmHg High 80-100 [facility] Comment on above: Performed By: #### H RTN #### [facility] ([facility]) [address] [place] [address] VIR POC BEATRIZ'S TEST Normal [facility] Comment on above: Performed By: #### H RTN #### [facility] ([facility]) [address] [place] [address] VIR Potassium [Moles/Vol] 4.8 mmol/L Normal 3.5-5.0 [facility] Comment on above: Performed By: #### H RTN #### [facility] ([facility]) [address] [place] [address] VIR SAMPLE SITE A LINE Normal [facility] Comment on above: Performed By: #### H RTN #### [facility] ([facility]) [address] [place] [address] VIR SAMPLE TYPE Arterial Normal [facility] Comment on above: Performed By: #### H RTN #### [facility] ([facility]) [address] [place] [address] VIR BASE,EXCESS 2.9 mmol/L High 0.0-2.0 [facility] Comment on above: Performed By: #### H RTN #### [facility] ([facility]) [address] [place] [address] VIR Body temperature 98.6 [degF] Normal >=37 [facility] Comment on above: Performed By: #### H RTN #### [facility] ([facility]) [address] [place] [address] VIR Performed By: #### A FAB5 #### [facility] ([facility]) [address] [place] [address] VIR Glucose [Mass/Vol] 152 mg/dL High 65-99 [facility] Comment on above: Performed By: #### H RTN #### [facility] ([facility]) [address] [place] [address] VIR HCO3 (Bld) [Moles/Vol] 27.6 mmol/L High 22.0-26.0 [facility] Comment on above: Performed By: #### H RTN #### [facility] ([facility]) [address] [place] [address] VIR Hematocrit (Bld) [Volume fraction] 28 % Critically low 39-47 [facility] Comment on above: Performed By: #### H RTN #### [facility] ([facility]) [address] [facility] [place] [address] VIR Hemoglobin (Bld) [Mass/Vol] 9.2 g/dL Low 13.0-17.0 [facility] Comment on above: Performed By: #### H RTN #### [facility] ([facility]) [address] [place] [address] VIR INSP. O2 CONC. 100.0 % Normal [facility] Comment on above: Performed By: #### H RTN #### [facility] ([facility]) [address] [facility] [place] [address] VIR Performed By: #### A FAB5 #### [facility] ([facility]) [address] [facility] [place] [address] VIR Oxygen saturation in Blood 100.5 % Normal >90.0 [facility] Comment on above: Performed By: #### H RTN #### [facility] ([facility]) [address] [facility] [place] [address] VIR Performed By: #### A FAB5 #### [facility] ([facility]) [address] [facility] [place] [address] VIR PCO2 ARTERIAL 43.9 mmHg Normal 35.0-45.0 [facility] Comment on above: Performed By: #### H RTN #### [facility] ([facility]) [address] [facility] [place] [address] VIR PH ARTERIAL 7.407 Normal 7.350-7.45 0 [facility] Comment on above: Performed By: #### H RTN #### [facility] ([facility]) [address] [facility] [place] [address] VIR PO2 ARTERIAL 465 mmHg High 80-100 [facility] Comment on above: Performed By: #### H RTN #### [facility] ([facility]) [address] [facility] [place] [address] VIR POC BEATRIZ'S TEST Normal [facility] Comment on above: Performed By: #### H RTN #### [facility] ([facility]) [address] [place] [address] VIR Performed By: #### A FAB5 #### [facility] ([facility]) [address] [place] [address] VIR Potassium [Moles/Vol] 3.4 mmol/L Low 3.5-5.0 [facility] Comment on above: Performed By: #### H RTN #### [facility] ([facility]) [address] [place] [address] VIR SAMPLE SITE A LINE Normal [facility] Comment on above: Performed By: #### H RTN #### [facility] ([facility]) [address] [place] [address] VIR Performed By: #### A FAB5 #### [facility] ([facility]) [address] [place] [address] VIR SAMPLE TYPE Arterial Normal [facility] Comment on above: Performed By: #### H RTN #### [facility] ([facility]) [address] [place] [address] VIR Performed By: #### A FAB5 #### [facility] ([facility]) [address] [place] [address] VIR POCT ABG RAPID K GLU ICA HHo n 01-03-2025 BASE,EXCESS 2.5 mmol/L High 0.0-2.0 [facility] Comment on above: Performed By: #### P INR, CMP, HA1C, CBC, 52763-8 #### [facility] ([id number]) [address], [address] [place] [address] Body temperature 98.6 [degF] Normal >=37 [facility] Comment on above: Performed By: #### P INR, CMP, HA1C, CBC, 97915-3 #### [facility] ([id number]) 0 [facility], [address] [place] [address] Glucose [Mass/Vol] 158 mg/dL High 65-99 [facility] Comment on above: Performed By: #### P INR, CMP, HA1C, CBC, 62068-6 #### [facility] ([id number]) [address] [address] [place] [address] HCO3 (Bld) [Moles/Vol] 26.3 mmol/L High 22.0-26.0 [facility] Comment on above: Performed By: #### P INR, CMP, HA1C, CBC, 86620-2 #### [facility] ([id number]) [address] [address] Hematocrit (Bld) [Volume fraction] 23 % Critically low 39-47 [facility] Comment on above: Performed By: #### P INR, CMP, HA1C, CBC, 41625-3 #### [facility] ([id number]) [address], [address] [address] Hemoglobin (Bld) [Mass/Vol] 7.6 g/dL Low 13.0-17.0 [facility] Comment on above: Performed By: #### P INR, CMP, HA1C, CBC, 40435-9 #### [facility] ([id number]) [address] [address] [place] [address] INSP. O2 CONC. 100.0 % Normal [facility] Comment on above: Performed By: #### P INR, CMP, HA1C, CBC, 36867-2 #### [facility] ([id number]) [address] [address] Oxygen saturation in Blood 100.5 % Normal >90.0 [facility] Comment on above: Performed By: #### P INR, CMP, HA1C, CBC, 79037-0 #### [facility] ([id number]) [address] [address] PCO2 ARTERIAL 36.4 mmHg Normal 35.0-45.0 [facility] Comment on above: Performed By: #### P INR, CMP, HA1C, CBC, 29201-6 #### [facility] ([id number]) [address], [address] [place] [address] PH ARTERIAL 7.467 High 7.350-7.45 0 [facility] Comment on above: Performed By: #### P INR, CMP, HA1C, CBC, 48524-4 #### [facility] ([id number]) [address] [place], [address] [place] [address] PO2 ARTERIAL 339 mmHg High 80-100 [facility] Comment on above: Performed By: #### P INR, CMP, HA1C, CBC, 26345-5 #### [facility] ([id number]) [address], [address] [place] [address] POC BEATRIZ'S TEST Normal [facility] Comment on above: Performed By: #### P INR, CMP, HA1C, CBC, 69707-8 #### [facility] ([id number]) [address], [address] [place] [address] PORTABLE ICA 4.1 mg/dL Low 4.5-5.3 [facility] Comment on above: Performed By: #### P INR, CMP, HA1C, CBC, 00220-6 #### [facility] ([id number]) [address] [address] [place] [address] Potassium [Moles/Vol] 3.4 mmol/L Low 3.5-5.0 [facility] Comment on above: Performed By: #### P INR, CMP, HA1C, CBC, 70836-4 #### [facility] ([id number]) [address] [address] [place] [address] SAMPLE SITE A LINE Normal [facility] Comment on above: Performed By: #### P INR, CMP, HA1C, CBC, 83507-1 #### [facility] ([id number]) [address] [address] [place] [address] SAMPLE TYPE Arterial Normal [facility] Comment on above: Performed By: #### P INR, CMP, HA1C, CBC, 67282-7 #### [facility] ([id number]) [address] [address] [place] [address] BASE,EXCESS 1.5 mmol/L Normal 0.0-2.0 [facility] Comment on above: Performed By: #### P INR, CMP, HA1C, CBC, 81821-7 #### [facility] ([id number]) [address] [address] [place] [address] Body temperature 98.6 [degF] Normal >=37 [facility] Comment on above: Performed By: #### P INR, CMP, HA1C, CBC, 35866-2 #### [facility] ([id number]) [address] [address] [place] [address] Glucose [Mass/Vol] 169 mg/dL High 65-99 [facility] Comment on above: Performed By: #### P INR, CMP, HA1C, CBC, 42031-9 #### [facility] ([id number]) [address] [address] [place] [address] HCO3 (Bld) [Moles/Vol] 25.0 mmol/L Normal 22.0-26.0 [facility] Comment on above: Performed By: #### P INR, CMP, HA1C, CBC, 63588-7 #### [facility] ([id number]) [address] [address] [place] [address] Hematocrit (Bld) [Volume fraction] 23 % Critically low 39-47 [facility] Comment on above: Performed By: #### P INR, CMP, HA1C, CBC, 53473-4 #### [facility] ([id number]) [address], [address] [place] [address] Hemoglobin (Bld) [Mass/Vol] 7.5 g/dL Low 13.0-17.0 [facility] Comment on above: Performed By: #### P INR, CMP, HA1C, CBC, 58855-3 #### [facility] ([id number]) [address], [address] [place] [address] INSP. O2 CONC. 100.0 % Normal [facility] Comment on above: Performed By: #### P INR, CMP, HA1C, CBC, 74452-6 #### [facility] ([id number]) [address], [address] [place] [address] Oxygen saturation in Blood 100.4 % Normal >90.0 [facility] Comment on above: Performed By: #### P INR, CMP, HA1C, CBC, 03281-3 #### [facility] ([id number]) [address], [address] [place] [address] PCO2 ARTERIAL 33.7 mmHg Low 35.0-45.0 [facility] Comment on above: Performed By: #### P INR, CMP, HA1C, CBC, 65987-7 #### [facility] ([id number]) [address], [address] [place] [address] PH ARTERIAL 7.478 High 7.350-7.45 0 [facility] Comment on above: Performed By: #### P INR, CMP, HA1C, CBC, 52604-6 #### [facility] ([id number]) [address], [address] [place] [address] PO2 ARTERIAL 198 mmHg High 80-100 [facility] Comment on above: Performed By: #### P INR, CMP, HA1C, CBC, 31015-4 #### [facility] ([id number]) [address], [address] [place] [address] POC BEATRIZ'S TEST Normal [facility] Comment on above: Performed By: #### P INR, CMP, HA1C, CBC, 88217-6 #### [facility] ([id number]) [address], [address] [place] [address] PORTABLE ICA 4.6 mg/dL Normal 4.5-5.3 [facility] Comment on above: Performed By: #### P INR, CMP, HA1C, CBC, 39842-4 #### [facility] ([id number]) [address], [address] [place] [address] Potassium [Moles/Vol] 3.8 mmol/L Normal 3.5-5.0 [facility] Comment on above: Performed By: #### P INR, CMP, HA1C, CBC, 70116-2 #### [facility] ([id number]) [address], [address] [place] [address] SAMPLE SITE A LINE Normal [facility] Comment on above: Performed By: #### P INR, CMP, HA1C, CBC, 14045-6 #### [facility] ([id number]) [address], [address] [place] [address] SAMPLE TYPE Arterial Normal [facility] Comment on above: Performed By: #### P INR, CMP, HA1C, CBC, 93023-1 #### [facility] ([id number]) [address], [address] [place] [address] BASE,EXCESS 5.6 mmol/L High 0.0-2.0 [facility] Comment on above: Performed By: #### A FAB5 #### [facility] ([facility]) [address] [place] [address] VIR Glucose [Mass/Vol] 132 mg/dL High 65-99 [facility] Comment on above: Performed By: #### A FAB5 #### [facility] ([facility]) [address] [place] [address] VIR HCO3 (Bld) [Moles/Vol] 28.0 mmol/L High 22.0-26.0 [facility] Comment on above: Performed By: #### A FAB5 #### [facility] ([facility]) [address] [place] [address] VIR Hematocrit (Bld) [Volume fraction] 42 % Normal 39-47 [facility] Comment on above: Performed By: #### A FAB5 #### [facility] ([facility]) [address] [place] [address] VIR Hemoglobin (Bld) [Mass/Vol] 13.8 g/dL Normal 13.0-17.0 [facility] Comment on above: Performed By: #### A FAB5 #### [facility] ([facility]) [address] [place] [address] VIR PCO2 ARTERIAL 32.2 mmHg Low 35.0-45.0 [facility] Comment on above: Performed By: #### A FAB5 #### [facility] ([facility]) [address] [place] [address] VIR PH ARTERIAL 7.548 High 7.350-7.45 0 [facility] Comment on above: Performed By: #### A FAB5 #### [facility] ([facility]) [address] [place] [address] VIR PO2 ARTERIAL 295 mmHg High 80-100 [facility] Comment on above: Performed By: #### A FAB5 #### [facility] ([facility]) [address] [place] [address] VIR PORTABLE ICA 4.8 mg/dL Normal 4.5-5.3 [facility] Comment on above: Performed By: #### A FAB5 #### [facility] ([facility]) [address] [place] [address] VIR Potassium [Moles/Vol] 3.7 mmol/L Normal 3.5-5.0 [facility] Comment on above: Performed By: #### A FAB5 #### [facility] ([facility]) [address] [place] [address] VIR POCT IMAGNon 01-03-2025 Magnesium [Moles/Vol] 0.52 mmol/L Normal 0.45-0.60 [facility] Comment on above: Performed By: #### I MAGN #### [facility] ([facility]) [address] [place] [address] VIR PORTABLE PROTIMEon PORTABLE INR 1.1 Normal 0.9-1.2 [facility] Comment on above: Performed By: #### I PRO #### [facility] ([facility]) [address] [place] [address] VIR POTASSIUMon 01-03-2025 Potassium [Moles/Vol] 3.9 mmol/L Normal 3.5-5.0 [facility] Comment on above: Performed By: #### P INR, CMP, HA1C, CBC, 26311-3 #### [facility] ([id number]) [address], [address] [place] [address] Potassium [Moles/Vol] 3.5 mmol/L Normal 3.5-5.0 [facility] Comment on above: Performed By: #### P INR, CMP, HA1C, CBC, 11919-3 #### [facility] ([id number]) [address], [address] [place] [address] PROTIME AND INRon 01-03-2025 INR 1.4 High 0.9-1.2 [facility] Comment on above: Performed By: #### P INR, CMP, HA1C, CBC, 77849-8 #### [facility] ([id number]) [address], [address] [place] [address] PT Coag (PPP) [Time] 16.2 s High 9.8-13.2 [facility] Comment on above: Performed By: #### P INR, CMP, HA1C, CBC, 89443-6 #### [facility] ([id number]) [address], [address] [place] [address] INR 1.6 High 0.9-1.2 [facility] Comment on above: Performed By: #### P INR, CMP, HA1C, CBC, 60537-3 #### [facility] ([id number]) [address], [address] [place] [address] PT Coag (PPP) [Time] 18.0 s High 9.8-13.2 [facility] Comment on above: Performed By: #### P INR, CMP, HA1C, CBC, 94509-9 #### [facility] ([id number]) [address], [address] [place] [address] REPEATED ABORHon 01-03-2025 ABO and Rh group Nom (Bld) ABORHR REPEATED ABORH Cancelled Normal [facility] XR CHEST 1 VWon 01-03-2025 XR CHEST 1 VW XR CHEST 1 VW Clinical History: Respiratory distress. Portable Upright chest: 01/03/2025 Comparison: 03/09/2020 Findings: A single portable view of the chest was obtained. Endotracheal tube tip is in the mid trachea. Enteric tube appears to terminate at the mid thoracic level. Chest tubes are present. The [place] catheter tip overlies the main pulmonary outflow region. A peripheral line overlies the right atrial region. The patient is poststernotomy. An artificial valve is present. There is volume loss and opacity in the right lower lung with blunting the costophrenic angle. Pneumothorax cannot be excluded. IMPRESSION: 1. Which appears to be an enteric tube extends in mid thoracic region. This could be within the airway or mid esophagus. Correlation with clinical findings recommended. 2. A catheter extending to the right atrial region/lower mediastinum has uncertain position. 3. Irregular right lower lung opacity. Pneumothorax not excluded. 4. I HAVE REQUESTED THAT THE RADIOLOGY DEPARTMENT STAFF CONTACT THE CLINICAL SERVICE REGARDING THIS REPORT. Finalized by Foster Pimentel MD on 01/03/2025 2:28 PM Normal [facility] COMPLETE BLOOD COUNTon 12-26 Erythrocyte distribution width (RBC) [Ratio] 12.5 % Normal 11.5-15.0 [facility] Comment on above: Performed By: #### P INR, CMP, HA1C, CBC, 70629-9 #### [facility] ([id number]) [address], [address] [place] [address] Hematocrit (Bld) [Volume fraction] 43.0 % Normal 39-49 [facility] Comment on above: Performed By: #### P INR, CMP, HA1C, CBC, 79650-9 #### [facility] ([id number]) [address], [facility] [address] [place] [address] Hemoglobin (Bld) [Mass/Vol] 14.6 g/dL Normal 13.0-17.0 [facility] Comment on above: Performed By: #### P INR, CMP, HA1C, CBC, 78812-5 #### [facility] ([id number]) [address], [address] [place] [address] MCH (RBC) [Entitic mass] 32.7 pg Normal 27-34 [facility] Comment on above: Performed By: #### P INR, CMP, HA1C, CBC, 32657-5 #### [facility] ([id number]) [address], [address] [place] [address] MCHC (RBC) [Mass/Vol] 34.0 g/dL Normal 32-36 [facility] Comment on above: Performed By: #### P INR, CMP, HA1C, CBC, 72113-9 #### [facility] ([id number]) [address], [address] [place] [address] MCV (RBC) [Entitic vol] 96 fL Normal 80-100 [facility] Comment on above: Performed By: #### P INR, CMP, HA1C, CBC, 33108-8 #### [facility] ([id number]) [address] [address] [place] [address] Platelet mean volume (Bld) [Entitic vol] 9.2 fL Normal 7-12 [facility] Comment on above: Performed By: #### P INR, CMP, HA1C, CBC, 17347-9 #### [facility] ([id number]) [address] [address] [place] [address] Platelets (Bld) [#/Vol] 147 10*3/uL Low 150-450 [facility] Comment on above: Performed By: #### P INR, CMP, HA1C, CBC, 18603-4 #### [facility] ([id number]) [address] [address] [place] [address] RBC COUNT 4.48 X10E12/L Normal 4.10-5.70 [facility] Comment on above: Performed By: #### P INR, CMP, HA1C, CBC, 84631-2 #### [facility] ([id number]) [address] [address] WBC (Bld) [#/Vol] 8.4 10*3/uL Normal 4.0-11.0 [facility] Comment on above: Performed By: #### P INR, CMP, HA1C, CBC, 17806-9 #### [facility] ([id number]) [address] [address] [place] [address] COMPREHENSIVE METABOLIC PANE Viral 12-26-2024 Albumin [Mass/Vol] 4.4 g/dL Normal 3.2-5.3 [facility] Comment on above: Performed By: #### P INR, CMP, HA1C, CBC, 66057-6 #### [facility] ([id number]) [address], [address] [facility] [place] [address] ALP [Catalytic activity/Vol] 69 U/L Normal 39-130 [facility] Comment on above: Performed By: #### P INR, CMP, HA1C, CBC, 31673-2 #### [facility] ([id number]) [address], [address] [place] [address] ALT [Catalytic activity/Vol] 11 U/L Normal 0-40 [facility] Comment on above: Performed By: #### P INR, CMP, HA1C, CBC, 69685-1 #### [facility] ([id number]) [address], [address] [place] [address] Anion gap [Moles/Vol] 10 mmol/L Normal 5-15 [facility] Comment on above: Performed By: #### P INR, CMP, HA1C, CBC, 07427-6 #### [facility] ([id number]) [address], [address] [place] [address] AST [Catalytic activity/Vol] 20 U/L Normal 0-41 [facility] Comment on above: Performed By: #### P INR, CMP, HA1C, CBC, 34518-0 #### [facility] ([id number]) [address], [address] [place] [address] Bilirubin [Mass/Vol] 0.6 mg/dL Normal 0.3-1.2 [facility] Comment on above: Performed By: #### P INR, CMP, HA1C, CBC, 22002-8 #### [facility] ([id number]) [address], [address] [place] [address] Calcium [Mass/Vol] 9.4 mg/dL Normal 8.5-10.5 [facility] Comment on above: Performed By: #### P INR, CMP, HA1C, CBC, 56923-8 #### [facility] ([id number]) [address], [address] [place] [address] Chloride [Moles/Vol] 103 mmol/L Normal 98-109 [facility] Comment on above: Performed By: #### P INR, CMP, HA1C, CBC, 56641-2 #### [facility] ([id number]) [address], [address] [place] [address] CO2 [Moles/Vol] 26 mmol/L Normal 22-32 [facility] Comment on above: Performed By: #### P INR, CMP, HA1C, CBC, 38765-7 #### [facility] ([id number]) [address], [address] [place] [address] Creatinine [Mass/Vol] 0.92 mg/dL Normal 0.60-1.30 [facility] Comment on above: Result Comment: METH OD TRACEABLE TO IDMS STANDARD Performed By: #### P INR, CMP, HA1C, CBC, 81758-5 #### [facility] ([id number]) [address], [address] [place] [address] GFR/1.73 sq M.predicted among non-blacks MDRD (S/P/Bld) [Vol rate/Area] 85 mL/min/{1.73_m2} Normal >59 [facility] Comment on above: Result Comment: Reported eGFR is based on the CKD-EPI 2020 equation that does not use a race coefficient. Performed By: #### P INR, CMP, HA1C, CBC, 90364-7 #### [facility] ([id number]) [address], [address] [place] [address] Glucose [Mass/Vol] 123 mg/dL High 65-99 [facility] Comment on above: Performed By: #### P INR, CMP, HA1C, CBC, 39001-5 #### [facility] ([id number]) [address], [address] [place] [address] Potassium [Moles/Vol] 4.0 mmol/L Normal 3.5-5.0 [facility] Comment on above: Performed By: #### P INR, CMP, HA1C, CBC, 72473-1 #### [facility] ([id number]) [address], [address] [place] [address] Protein [Mass/Vol] 6.9 g/dL Normal 6.0-8.0 [facility] Comment on above: Performed By: #### P INR, CMP, HA1C, CBC, 10471-8 #### [facility] ([id number]) [address], [address] [place] [address] Sodium [Moles/Vol] 139 mmol/L Normal 134-146 [facility] Comment on above: Performed By: #### P INR, CMP, HA1C, CBC, 47530-2 #### [facility] ([id number]) [address], [address] [place] [address] Urea nitrogen [Mass/Vol] 23 mg/dL Normal 5-27 [facility] Comment on above: Performed By: #### P INR, CMP, HA1C, CBC, 04634-9 #### [facility] ([id number]) [address], [address] [place] [address] HGB A1C (GLYCO-HGB)on 2024 Glucose [Mass/Vol] 114 mg/dL Normal [facility] Comment on above: Performed By: #### P INR, CMP, HA1C, CBC, 46849-5 #### [facility] ([id number]) [address], [address] [place] [address] HbA1c (Bld) [Mass fraction] 5.6 % Normal 4.4-5.6 [facility] Comment on above: Result Comment: NOTE ADA Guidelines Result HgbA1c Normal : less than 5.7 % Prediabetes : 5.7 % to 6.4 % Diabetes : > 6.4 % Use with caution in patients with abnormal hemoglobin variants as the half-life of red blood cells and in vivo glycation rates are affected. Performed By: #### P INR, CMP, HA1C, CBC, 39054-0 #### [facility] ([id number]) [address], [address] [place] [address] POCT EKGon 12-26-2024 See scanned image MANUALL Y TRANSCRIBED RESULTS [facility] PROTIME AND INRon 12-26-2024 INR Coag (PPP) [Relative time] 2.2 {INR} High 0.9-1.2 [facility] Comment on above: Performed By: #### P INR, CMP, HA1C, CBC, 56514-9 #### [facility] ([id number]) [address] [place] [address] PT Coag (PPP) [Time] 25.2 s High 9.8-13.2 [facility] Comment on above: Performed By: #### P INR, CMP, HA1C, CBC, 44421-1 #### [facility] ([id number]) [address], [address] [place] [address] aPTT Coag (PPP) [Time]on aPTT Coag (Bld) [Time] 35 s Normal 26-37 Pr [facility] Comment on above: Performed By: #### P INR, CMP, HA1C, CBC, 11943-7 #### [facility] ([id number]) [address], [address] [place] [address] POCT Protime / INRon 12-23- 025 INR Coag (PPP) [Relative time] 1.8 {INR} Abnormal 0.8 - 1.2 [facility] Interpretation and review of laboratory results Abnormal [facility] POCT Protime / INRon 12-16- 025 INR Coag (PPP) [Relative time] 1.8 {INR} Abnormal 0.8 - 1.2 [facility] Interpretation and review of laboratory results Abnormal [facility] Ambulatory Visit Summaryon 0 12-05-2024 Ambulatory Visit Summary Ambulatory Visit Summary DEBBI ZENDEJAS :1945 Visit Date:12/05/2024 Ambulatory Visit Instructions Your Diagnosis History of prostate cancer Impotence BPH with urinary obstruction Anticoagulated Other obstructive and reflux uropathy Your Care Team Attending Physician - MARJ SOMERS PA-C Primary Care Physician - BOOKER VILLEDA DO This Is Your Medications List acetaminophen (acetaminophen 500 mg Tab) baclofen (baclofen 20 mg Tab) empagliflozin (Jardiance 10 mg oral tablet) lorazepam (LORazepam 0.5 mg Tab) metformin (MetFORMIN (Eqv-Glucophage XR) 500 mg oral tablet, extended release) sacubitril-valsartan (Entresto 49 mg-51 mg oral tablet) tadalafil (tadalafil 20 mg Tab) tamsulosin (tamsulosin 0.4 mg Cap) warfarin Procedures Performed Transurethral insertion of prostatic urethral lift implant (02/29/2020), Cystoscopy (02/08/2020), Circumcision (01/25/2020), Brachytherapy (08/05/2018), Transrectal biopsy of prostate using ultrasound (US) guidance (05/27/2018), AVR - Aortic valve replacement, Hemorrhoidectomy, Open repair of inguinal hernia. Discharge Vitals Temperature (Temporal Artery) 37 ???C Heart Rate (Peripheral) 58 Respiratory Rate 16 Blood Pressure 111/60 Height 177 cm Height 70 in Weight 58.5 kg Weight 128.97 lb BMI 18.67 What to do next You Need to Schedule the Following Appointments Follow Up with MARJ SOMERS PA-C, URL When: In 1 year Where: [address] [place] [address] Medications What How Much When Instructions Unchanged acetaminophen (acetaminophen 500 mg Tab) 1 Tablets By Mouth At bedtime takes a second tab 5 hours later Unchanged baclofen (baclofen 20 mg Tab) 1 Tablets By Mouth 2 times a day as needed for Pain Unchanged empagliflozin (Jardiance 10 mg oral tablet) Unchanged lorazepam (LORazepam 0.5 mg Tab) 1 Tablets By Mouth Once a day (at bedtime) Unchanged metformin (MetFORMIN (Eqv-Glucophage XR) 500 mg oral tablet, extended release) Unchanged sacubitril-valsartan (Entresto 49 mg-51 mg oral tablet) Unchanged tadalafil (tadalafil 20 mg Tab) See instructions Take 1 tablet only as needed for erections Unchanged tamsulosin (tamsulosin 0.4 mg Cap) 1 Capsules By Mouth 2 times a day Duration: 30 Days DO NOT FILL EARLY Unchanged warfarin 5 Milligram By Mouth Every day Allergies No Known Medication Allergies Problems Ongoing - Any problem that you are currently receiving treatment for. 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 Please share your experience with us by completing your survey. We appreciate your feedback and thank you for choosing us for your care. Education Materials Benign Prostatic Hyperplasia Benign prostatic hyperplasia (BPH) [...] or symptoms? Symptoms of this condition include: ??? Getting up often during the night to urinate. ??? Needing to urinate frequently during the day. ??? Difficulty starting urine flow. ??? Decrease in size and strength of your urine stream. ??? Leaking (dribbling) after urinating. ??? Inability to pass urine. This needs immediate treatment. ??? Inability to completely empty your bladder. ??? Pain when you pass urine. This is more common if there is also an infection. ??? Urinary tract infection (UTI). How is this diagnosed? This condition is diagnosed based on your medical history, a physical exam, and your symptoms. Tests will also be done, such as: ??? A post-void bladder scan. This measures any amount of (more content not included)... Normal [facility] Urology Office/Clinic Noteon 12-05-2024 Urology Office/Clinic Note Urology Office/Clinic Note Chief Complaint 6 month f/u with PSA HPI Staff 78 yr old male here for month f/u from [facility] on 06/07/24 Dx: BPH with obstruction, hx of prostate cancer, impotence and anticoagulated. S/P urolift 02/29/20. Cialis 20mg PRN? and Tamsulosin 0.4mg BID PSA: 10/29/21- 0.12 11/03/22 - 0.12 10/22/23 - 0.07 10/26/24 - 0.04 Review of Systems PHQ Score Initial Depression Screen Score: 0 SCORE no fever, chills, malaise, myalgia. no rash/lesions. no chest pain, palpitations, or SOB. no abdominal pain, nausea, vomiting. Physical Exam Vitals & Measurements T: 37 ???C(Temporal Artery) HR: 58(Peripheral) RR: 16 BP: 111/60 HT: 70 in HT: 177 cm WT: 128.97 lb WT: 58.5 kg BMI: 18.67 General: nontoxic, NAD Mouth: moist mucosa Lungs: normal respiratory effort Cardio: regular rate, good distal perfusion Abdomen: nondistended Neurologic: Grossly normal Skin: No rashes or suspicious lesions Assessment/Plan Prior Dr. Forbes pt. Current Dr. Charles pt. Accompanied by his today. 1. History of prostate cancer (Z85.46: Personal history of malignant neoplasm of prostate) PSA: 10/29/21- 0.12 11/03/22 - 0.12 10/22/23 - 0.07 10/26/24 - 0.04 S/p brachytherapy 08/05/18. PSA low. Follows w/ Dr. Catalan annually. Ordered: E&M of Est. Patient Moderate 30-39 Min 18699 2. Impotence (N52.9: Male erectile dysfunction, unspecified) Pt has been taking Cialis 20 mg PRN. This is effective and pt is satisfied with results. Pt reports no intolerable side effects. Pt has had no new cardiac events since last f/u. Pt does not take Nitro and knows not to start. Risks/benefits/side effects discussed. Pt wishes to: continue current dosing with no changes. Pt does not need refills at this time. Ordered: E&M of Est. Patient Moderate 30-39 Min 55691 3. BPH with urinary obstruction (N40.1: Benign prostatic hyperplasia with lower urinary tract symptoms) S/p UroLift 02/29/20. Feels it helped urination, however states he was hospitalized due to blood loss. 02/16/24: Pt called our office 01/12/24 for Tamsulosin refill stating that he needed a refill because he had been sometimes taking it 3x daily instead of BID due to worsening urinary symptoms. He was advised that the max dose should be BID and he should be seen for his issues. Unfortunately, despite our recommendations, pt has continued to overdose on Tamsulosin, taking 3 every day, sometimes up to 4 or 5 per day. In the meantime, he has been in ER several times, more than once for dizziness/weakness. Advised pt that it is not safe to exceed 0.8mg within 24hrs. Explained side effects like hypotension. States he has been taking that many per day since it helps him relax to urinate. States it can be difficult to start his stream and once he gets it started it's very weak. This is bothersome to him. Recommended cystoscopic eval due to worsening sx despite being on maximum dose of Flomax. Pt wishes to proceed. Cysto w PRW 06/07/24: The Urethra is: Normal. The Prostatic Urethra is: Unobstructed, No visible UroLift bands. The Bladder is: Trabeculated (Moderate (2), No bladder tumors.). He will continue his Flomax; twice a day not 3 times a day. TODAY: IPSS 6 (12) QOL 2 Pt is taking tamsulosin BID and is mostly satisfiedwith overall symptom control. Pt is experiencing noside effects. Pt prefers to continue current regimen with no changes at this time. Risks/benefits/side effects discussed. Does not need refills right now. Ordered: E&M of Est. Patient Moderate 30-39 Min 25219 4. Anticoagulated (Z79.01: jail (current) use of anticoagulants) Warfarin. Elevated risk for periop complications. [1] Ordered: E&M of Est. Patient Moderate 30-39 Min 51993 Other obstructive and reflux uropathy (N13.8: Other obstructive and reflux uropathy) Orders: cephalexin, 500 mg = 1 cap(s), Oral, As Directed, Pt to take 1 tab the day before procedure and the 2nd tab the day of procedure once completed., # 2 cap(s), Refills(s) 0, Pharmacy: [email or web address], 177, cm, 02/16/24 14:01:00 EDT, Height/Length Dosing, 63.7,... Follow-up With When Contact Information MARJ SOMERS PA-C, URL In 1 year [address] 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 Normal [facility] Comment on above: Result Comment: Elec tronically Signed By: MARJ SOMERS PA-C\.br\Date and Time Signed: 12/05/24 10:[address] CTA CHESTon 11-25-[address] CTA CHEST CLINICAL INFORMATION: Acute aortic syndrome. Chest pain.. [...] ON 11/25/2024 AT 9:40 AM. Finalized by aHrley Rowe MD on 11/25/2024 9:39 AM Normal [facility] BASIC METABOLIC PANLon 11-22 Anion gap [Moles/Vol] 5 mmol/L Normal 5-15 [facility] Comment on above: Performed By: #### B MP #### [facility] ([id number]) [address] [place] [address] Calcium [Mass/Vol] 9.1 mg/dL Normal 8.5-10.5 [facility] Comment on above: Performed By: #### B MP #### [facility] ([id number]) [address] [place] [address] Chloride [Moles/Vol] 101 mmol/L Normal 98-109 [facility] Comment on above: Performed By: #### B MP #### [facility] ([id number]) [address] [place] [address]156 CO2 [Moles/Vol] 28 mmol/L Normal 22-32 [facility] Comment on above: Performed By: #### B MP #### [facility] ([id number]) [address] [place] [address]08 Creatinine [Mass/Vol] 1.00 mg/dL Normal 0.70-1.20 [facility] Comment on above: Result Comment: METH OD TRACEABLE TO IDMS STANDARD Performed By: #### B MP #### [facility] ([id number]) [address] [place] [address] 38123 GFR/1.73 sq M.predicted among non-blacks MDRD (S/P/Bld) [Vol rate/Area] 77 mL/min/{1.73_m2} Normal >59 [facility] Comment on above: Result Comment: Reported eGFR is based on the CKD-EPI 2020 equation that does not use a race coefficient. Performed By: #### B MP #### [facility] ([id number]) [address] [place] [address] 88162 Glucose [Mass/Vol] 115 mg/dL High 65-99 [facility] Comment on above: Performed By: #### B MP #### [facility] ([id number]) [address] [place] [address]001 Potassium [Moles/Vol] 3.5 mmol/L Normal 3.5-5.0 [facility] Comment on above: Performed By: #### B MP #### [facility] ([id number]) [address] [place] [address] 42487 Sodium [Moles/Vol] 134 mmol/L Normal 134-146 [facility] Comment on above: Performed By: #### B MP #### [facility] ([id number]) [address] [place] [address] 03466 Urea nitrogen [Mass/Vol] 19 mg/dL Normal 5-27 [facility] Comment on above: Performed By: #### B MP #### [facility] ([id number]) [address] [place] [address] 43393 Provider Letteron 11-15-2024 Provider Letter Provider Letter November 15, 2024 DEBBI ZENDEJAS [address] [place] [id number] : 1945 Dear Debbi, We have been trying to reach you with no success. You have an appointment with Dr. Zeferino Charles on 12/05/24 which will need to be rescheduled since he will be out of the office that day. Please contact the office at the number listed below to get this appointment rescheduled at your earliest convenience. Thank you for your prompt attention to this matter. Sincerely, [facility] [address] [place] [address] [place] [address] Normal [facility] POCT Protime / INRon 025 INR Coag (PPP) [Relative time] 2 {INR} Abnormal 0.8 - 1.2 [facility] Interpretation and review of laboratory results Abnormal [facility] Laboratory - Chemistry and C hemistry - challengeon 11-07-2024 Cholesterol [Mass/Vol] 146 mg/dL [facility] Cholesterol in HDL [Mass/Vol] 58 mg/dL [facility] Cholesterol in LDL [Mass/Vol] 71 mg/dL [facility] Cholesterol.total/Chol esterol in HDL [Mass ratio] 2.5 {ratio} [facility] Cobalamin (Vitamin B12) [Mass/Vol] 559 pg/mL [facility] Triglyceride [Mass/Vol] 86 mg/dL [facility] Lipid 1996 panelon Cholesterol [Mass/Vol] 146 mg/dL Low 150-200 [facility] Comment on above: Performed By: #### 2 4331-1, 9, 47864-7 #### [facility] ([id number]) [address], [address] [place] [address] Cholesterol in HDL [Mass/Vol] 58 mg/dL Normal >39 [facility] Comment on above: Result Comment: HDL <40 mg/dL - High Risk HDL > or = 40mg/dL- Desirable HDL >60 mg/dL - Negative Risk Performed By: #### 2 4331-1, 9, 47984-7 #### [facility] ([id number]) [address], [address] [place] [address] Cholesterol in LDL [Mass/Vol] 71 mg/dL Normal <130 [facility] Comment on above: Result Comment: LDL <100 mg/dL - Desirable LDL >160 mg/dL - High Risk Performed By: #### 2 4331-1, 9, 72032-4 #### [facility] ([id number]) [address], [address] [place] [address] Cholesterol in VLDL [Mass/Vol] 17 mg/dL Normal 0-30 [facility] Comment on above: Performed By: #### 2 4331-1, 2132-05, 87107-0 #### [facility] ([id number]) [address], [address] [place] [address] CHOLESTEROL:HDL 2.5 Normal 1.0-5.0 [facility] Comment on above: Performed By: #### 2 4331-1, 2132-05, 36023-9 #### [facility] ([id number]) [address] [place] [address] Triglyceride [Mass/Vol] 86 mg/dL Normal 27-150 [facility] Comment on above: Performed By: #### 2 4331-1, 2132-05, 62899-5 #### [facility] ([id number]) [address] [place] [address] No Panel Informationon 11-07 25-Hydroxy Vitamin D Total 44.3 ng/mL [facility] VITAMIN B12on 11-07-2024 Cobalamin (Vitamin B12) [Mass/Vol] 559 pg/mL Normal 180-914 [facility] Comment on above: Performed By: #### 2 4331-1, 2132-05, 57171-4 #### [facility] ([id number]) [address] [place] [address] Vitamin D+Metabolites [Mass/ Vol]on 11-07-2024 VITAMIN D 25 HYD TOT 44.3 ng/mL Normal 30-100 [facility] Comment on above: Result Comment: Vitamin D status 25 [place] Vitamin D Deficiency <20 ng/mL Insufficiency 20-29 ng/mL Sufficiency 30-100 ng/mL Toxicity >100 ng/mL NOTE: A pediatric reference range has not been established by the relay associate of this kit. The [place] [employer] recommends a Vitamin D level of = or >20ng/mL in infants and children. Performed By: #### 2 4331-1, 2132-9, 83861-3 #### [facility] ([id number]) [address] [place] [address] CNOVon 11-03-2024 CNOV Office Visit (RADTSA ) -- DBEBI ZENDEJAS ([id number]) 1945 M Date Time Provider Department 11/03/24 10:30 AM Cande CATALAN During your visit today, we recorded the following information about you: Temperature Pulse Respiration Blood pressure 96.8 degrees 81/minute 18/minute 109/73 Weight 57.5 kg Cande Catalan MD 11/03/2024 10:14 AM Signed Radiation Oncology - Follow Up Note PATIENT NAME: Debbi Zendejas PATIENT DIAGNOSIS: Prostate adenocarcinoma, 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 BRACHYTHERAPY SUMMARY: 08/05/18 Prostate brachytherapy, I-125, 145 agustin, 88 seeds 23 needles, 32.82 mCi INTERVAL HISTORY: Doing well. Recent weight loss due to issues with diabetes diagnosis. Doing better now. Appetite good. Active. PSA HISTORY: PSA (ng/mL) Date Value 10/26/2024 0.04 10/22/2023 0.07 11/03/2022 0.12 10/29/2021 0.12 11/06/2020 0.21 05/03/2020 0.26 09/13/2019 0.40 ALLERGIES No Known Allergies metFORMIN ER (GLUCOPHAGE XR) 500 mg 24 hr tablet Take 1 tablet by mouth every 12 hours. ENTRESTO 24-26 mg tablet Take 0.5 tablets by mouth in the morning and 0.5 tablets before bedtime. ferrous sulfate 325 mg (65 mg iron) [...] aid urination: no - Total AUA Score: 22 Bowel movement frequency: 1/day Bowel movement quality: normal Blood per rectum: none Erectile: Partial with medication PHYSICAL EXAM: BP 109/73 Pulse 81 Temp 36 ?C (96.8 ?F) Resp 18 Wt 57.5 kg (126 lb 12.2 oz) SpO2 96% KPS: 100 General appearance: Alert and oriented. No acute distress. Rectal exam def Skin: Skin color, texture, turgor normal, no suspicious rashes or lesions. ASSESSMENT/PLAN: Prostate adenocarcinoma, initial PSA 6.59, biopsy [place] score 3 + 3 = 6 (grade [...] as active information included in the EMR. Alize Adam RN 11/03/2024 10:14 AM Signed AUA 22 Alize Adam RN Allergies As of Date: 11/03/2024 (No Known Allergies) Date Reviewed: 11/03/2024 Reviewed by: Alize Adam RN - Fully Assessed Reason for Visit: Prostate Cancer [590] Primary Visit Diagnosis:Prostate cancer (HCC) [C61] Order(s):PROSTATE-SPECIFIC ANTIGEN DIAGNOSTIC [SQPSA] Order #: [id number] FUTURE Prescriptions as of 11/03/2024 - metFORMIN ER (GLUCOPHAGE XR) 500 mg 24 hr tablet Take 1 tablet by mouth every 12 hours. - ENTRESTO 24-26 mg tablet Take 0.5 tablets by mouth in the morning and 0.5 tablets before bedtime. - ferrous sulfate 325 mg (65 mg [...] for spasms Problem List As Of Date 11/03/2024 Noted Resolved Prostate cancer (HCC) [C61] 06/30/2018 Level of Service: OFFICE/OUTPATIENT ESTABLISHED SF MDM 10 MIN [55693] Disposition: Return in about 1 year (around 11/03/2025). Follow-up and Disposition History for Encounter Date Provider Department Center 11/03/2024 [id number] CATALAN [facility] Encounter Status:Closed by Cande CATALAN on 11/03/[address] [facility] Reminderson 11-02-2024 Reminders Reminders From: Aleja Petersen To: EU - Administrative; Sent: 06/07/2024 10:57:59 EDT Show up: 10/08/2024 09:57:00 EST Subject: 6 MO F/U Due Date/Time: 12/06/2024 10:57:00 EDT Reminder/Recall PT SEEN ON 06/07/2024 FOR A [facility]. PT NEEDS A 6 MO F/U W/ SANTIAGO IN GABBS. 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 Patient does have an appointment with Dr. Charles in November that will need rescheduled Normal [facility] No Panel Informationon 10-26 Prostate Specific Antigen 0.04 ng/mL <2.60 [facility] Comment on above: Total PSA test metho dology used is the Electrochemiluminescence Immunoassay by [employer]. Total PSA values by differing methodologies cannot be interchanged. PSA SerPl-mCncon 10-26-2024 Prostate specific Ag [Mass/Vol] 0.04 ng/mL Normal <2.60 [facility] Comment on above: Order Comment: Speci men Type: BLOOD SPECIMEN Ordering Facility: [facility] Address: [address] [place] [address] Result Comment: Tota l PSA test methodology used is the Electrochemiluminescence Immunoassay by [employer]. Total PSA values by differing methodologies cannot be interchanged. Performed By: #### 2 857-1 #### [facility] CLIA [id number] [address] [place] [address] [place] [address] [place] POCT Protime / INRon 025 INR Coag (PPP) [Relative time] 2.5 {INR} Abnormal 0.8 - 1.2 [facility] Interpretation and review of laboratory results Abnormal [facility] POCT Protime / INRon 025 INR Coag (PPP) [Relative time] 2.5 {INR} Abnormal 0.8 - 1.2 [facility] Interpretation and review of laboratory results Abnormal [facility] Complete Blood Count Auto Di ffon 08-19-2024 Basophils (Bld) [#/Vol] 0.1 10*3/uL Normal 0.0-0.2 [facility] Comment on above: Result Comment: PERF ORMED BY: [address] [place] [address] PATHOLOGIST ENGINE WATCHMAN AMY ERICKSON M.D. Performed By: #### C JENNY TSH3 wRFLX, CBC #### [facility] [address] [place] [address] [place] Basophils/100 WBC (Bld) 1.3 % Normal . [facility] Comment on above: Performed By: #### C MP, TSH3 wRFLX, CBC #### [facility] [address] [place] [address] [place] Eosinophils (Bld) [#/Vol] 0.2 10*3/uL Normal 0.0-0.45 [facility] Comment on above: Performed By: #### C MP, TSH3 wRFLX, CBC #### [address] Eosinophils/100 WBC (Bld) 2.0 % Normal . [facility] Comment on above: Performed By: #### C MP, TSH3 wRFLX, CBC #### [address] Erythrocyte distribution width (RBC) [Ratio] 15.7 % High 12.0-14.8 [facility] Comment on above: Performed By: #### C MP, TSH3 wRFLX, CBC #### [address] Hematocrit (Bld) [Volume fraction] 40.8 % Normal 38.8-50.0 [facility] Comment on above: Performed By: #### C MP, TSH3 wRFLX, CBC #### [address] Hemoglobin (Bld) [Mass/Vol] 14.1 g/dL Normal 13.0-17.0 [facility] Comment on above: Performed By: #### C MP, TSH3 wRFLX, CBC #### [address] Lymphocytes (Bld) [#/Vol] 1.3 10*3/uL Normal 1.00-4.8 [facility] Comment on above: Performed By: #### C MP, TSH3 wRFLX, CBC #### [place] [address] [place] Lymphocytes/100 WBC (Bld) 16.4 % Normal . [facility] Comment on above: Performed By: #### C MP, TSH3 wRFLX, CBC #### [address] MCH (RBC) [Entitic mass] 34.1 pg Normal 27.5-35.2 [facility] Comment on above: Performed By: #### C MP, TSH3 wRFLX, CBC #### [address] MCV (RBC) [Entitic vol] 98.9 fL Normal 83.5-101 [facility] Comment on above: Performed By: #### C MP, TSH3 wRFLX, CBC #### [address] Mean Corpuscular HGB Conc 34.5 g/dL Normal 32.5-35.6 [facility] Comment on above: Performed By: #### C MP, TSH3 wRFLX, CBC #### [address] Monocytes (Bld) [#/Vol] 0.6 10*3/uL Normal 0.0-0.8 [facility] Comment on above: Performed By: #### C MP, TSH3 wRFLX, CBC #### [address] Monocytes/100 WBC (Bld) 8.1 % Normal . [facility] Comment on above: Performed By: #### C MP, TSH3 wRFLX, CBC #### [address] Neutrophils (Bld) [#/Vol] 5.6 10*3/uL Normal 1.8-7.7 [facility] Comment on above: Performed By: #### C MP, TSH3 wRFLX, CBC #### [address] Neutrophils/100 WBC (Bld) 72.2 % Normal . [facility] Comment on above: Performed By: #### C MP, TSH3 wRFLX, CBC #### [address] NRBC% 0.1 /100{WBC} Normal 0-0.5 [facility] Comment on above: Performed By: #### C MP, TSH3 wRFLX, CBC #### [address] Platelet mean volume (Bld) [Entitic vol] 9.5 fL Normal 6.6-10.1 [facility] Comment on above: Performed By: #### C MP, TSH3 wRFLX, CBC #### [address] Platelets (Bld) [#/Vol] 171 10*3/uL Normal 150-450 [facility] Comment on above: Performed By: #### C MP, TSH3 wRFLX, CBC #### [address] RBC (Bld) [#/Vol] 4.12 10*6/uL Normal 3.90-5.60 [facility] Comment on above: Performed By: #### C MP, TSH3 wRFLX, CBC #### [address] WBC (Bld) [#/Vol] 7.7 10*3/uL Normal 4.1-10.5 [facility] Comment on above: Performed By: #### C MP, TSH3 wRFLX, CBC #### [address] Comprehensive Metabolic Pane [facility] 08-19-2024 Albumin [Mass/Vol] 4.4 g/dL Normal 3.5-5.7 [facility] Comment on above: Order Comment: NONFA STING.JKW Performed By: #### C MP, TSH3 wRFLX, CBC #### [address] Albumin/Globulin [Mass ratio] 2.0 {ratio} Normal [facility] Comment on above: Order Comment: NONFA STING.JKW Performed By: #### C MP, TSH3 wRFLX, CBC #### [address] ALP [Catalytic activity/Vol] 61 U/L Normal 34-104 [facility] Comment on above: Order Comment: NONFA STING.JKW Performed By: #### C MP, TSH3 wRFLX, CBC #### [address] ALT [Catalytic activity/Vol] 10 U/L Normal 7-52 [facility] Comment on above: Order Comment: NONFA STING.JKW Performed By: #### C MP, TSH3 wRFLX, CBC #### [address] Anion gap [Moles/Vol] 8.8 mmol/L Normal 6.0-15.0 [facility] Comment on above: Order Comment: NONFA STING.JKW Performed By: #### C MP, TSH3 wRFLX, CBC #### [address] AST [Catalytic activity/Vol] 16 U/L Normal 13-39 [facility] Comment on above: Order Comment: NONFA STING.JKW Performed By: #### C MP, TSH3 wRFLX, CBC #### [address] Bilirubin [Mass/Vol] 0.7 mg/dL Normal 0.3-1.0 [facility] Comment on above: Order Comment: NONFA STING.JKW Performed By: #### C MP, TSH3 wRFLX, CBC #### [address] Calcium [Mass/Vol] 9.3 mg/dL Normal 8.6-10.3 [facility] Comment on above: Order Comment: NONFA STING.JKW Performed By: #### C MP, TSH3 wRFLX, CBC #### [place] [address] [place] Chloride [Moles/Vol] 97 mmol/L Low 98-107 [facility] Comment on above: Order Comment: NONFA STING.JKW Performed By: #### C MP, TSH3 wRFLX, CBC #### [address] CO2 [Moles/Vol] 33.4 mmol/L High 21.0-31.0 [facility] Comment on above: Order Comment: NONFA STING.JKW Performed By: #### C MP, TSH3 wRFLX, CBC #### [facility] [address] Creatinine [Mass/Vol] 0.92 mg/dL Normal 0.70-1.30 [facility] Comment on above: Order Comment: NONFA STING.JKW Performed By: #### C MP, TSH3 wRFLX, CBC #### [place] [address] [place] GFR/1.73 sq M.predicted MDRD (S/P/Bld) [Vol rate/Area] mL/min/{1.73_m2} Normal [facility] Comment on above: Order Comment: NONFA STING.JKW Performed By: #### C JENNY, TSH3 wRFLX, CBC #### [place] [address] [place] Globulin (S) [Mass/Vol] 2.2 g/dL Normal [facility] Comment on above: Order Comment: NONFA STING.JKW Performed By: #### C MP, TSH3 wRFLX, CBC #### [address] Glucose [Mass/Vol] 146 mg/dL High 70-100 [facility] Comment on above: Order Comment: NONFA STING.JKW Result Comment: [place] Glucose Reference Range is dependent on time and content of last meal. Glucose of more than 200 mg/dL in a nonstressed, ambulatory subject supports the diagnosis of Diabetes Mellitus. ADA recommended reference range Performed By: #### C MP, TSH3 wRFLX, CBC #### [facility] [address] [place] [address] [place] Potassium [Moles/Vol] 4.2 mmol/L Normal 3.5-5.1 [facility] Comment on above: Order Comment: NONFA STING.JKW Performed By: #### C MP, TSH3 wRFLX, CBC #### [facility] [address] [place] [address] [place] Protein [Mass/Vol] 6.6 g/dL Normal 6.4-8.9 [facility] Comment on above: Order Comment: NONFA STING.JKW Performed By: #### C MP, TSH3 wRFLX, CBC #### [address] Sodium [Moles/Vol] 135 mmol/L Low 136-145 [facility] Comment on above: Order Comment: NONFA STING.JKW Performed By: #### C MP, TSH3 wRFLX, CBC #### [address] Urea nitrogen [Mass/Vol] 17 mg/dL Normal 7-25 [facility] Comment on above: Order Comment: NONFA STING.JKW Performed By: #### C MP, TSH3 wRFLX, CBC #### [address] Thyroid Stim Hormone w/Rflxo n 08-19-2024 Thyroid Stim Hormone w/Rflx 1.52 u[iU]/mL Normal 0.45-5.33 [facility] Comment on above: Order Comment: NONFA STING.JKW Result Comment: PERF ORMED BY: [place] [address] PATHOLOGIST ENGINE WATCHMAN AMY ERICKSON M.D. Performed By: #### C MP, TSH3 wRFLX, CBC #### [address] POCT Protime / INRon 08-09-2 024 INR Coag (PPP) [Relative time] 3 {INR} Abnormal 0.8 - 1.2 [facility] Interpretation and review of laboratory results Abnormal [facility] POCT Protime / INRon 07-26-2 024 INR Coag (PPP) [Relative time] 3.8 {INR} Abnormal 0.8 - 1.2 [facility] Interpretation and review of laboratory results Abnormal [facility] POCT Protime / INRon 06-28-2 024 INR Coag (PPP) [Relative time] 2.3 {INR} Abnormal 0.8 - 1.2 [facility] Interpretation and review of laboratory results Abnormal [facility] Main OR Intraoperative Recor don 06-07-2024 Main OR Intraoperative Record Main OR Intraoperative Record IntraOp Document Type FTURO Summary Primary Physician: Zeferino CHARLES MD Finalized Date/Time: 06/07/24 10:49:30 Pt. Name: DEBBI ZENDEJAS Gail Gordon/Sex: 1945 Male Med Rec #: [id number] Physician: Zeferino CHARLES MD Financial #: [id number] Pt. Type: O Room/Bed: / Admit/Disch: 06/07/24 09:28:23 - Institution: Case Times FTURO Entry 1 Patient Times In Room 06/07/24 10:31:00 Out Room 06/07/24 10:49:00 Procedure Times Start 06/07/24 10:39:00 Stop 06/07/24 10:45:00 Anesthesia Times Last Modified By: Darrell WHITE, Nancy Owen 06/07/24 10:45:33 Case Attendance FTURO Entry 1 Entry 2 Entry 3 Case Attendee Zeferino CHARLES MD, RN, Nancy Lund CST, Niurka Owen Role Performed Surgeon - Primary Metaphysician - Primary Scrub - Primary Time In 06/07/24 10:31:00 06/07/24 10:31:00 06/07/24 10:31:00 Time Out 06/07/24 10:49:00 06/07/24 10:49:00 06/07/24 10:49:00 Procedure CYSTOSCOPY LOCAL(.) CYSTOSCOPY LOCAL(.) CYSTOSCOPY LOCAL(.) Comments Last Modified By: Darrell WHITE, Nancy Ramírez RN, Nacny Ramírez RN, Nancy Owen 06/07/24 Miranda Owen 06/07/24 Miranda Owen 06/07/24 10:45:36 10:45:36 10:45:36 Surgical Procedures FTURO Entry 1 Procedure Description Procedure CYSTOSCOPY LOCAL Modifiers . Surgeon Description CYSTOSCOPY Primary Procedure Yes Primary Surgeon Zeferino CHARLES MD Start 06/07/24 10:39:00 Stop 06/07/24 10:45:00 Anesthesia Type Local Surgical Service Urology Wound Class 2 - Clean-Contaminated Last Modified By: Nancy Ramírez RN 06/07/24 10:45:35 General Case Data FTURO Pre-Care Text: Classifies surgical wound, implements aseptic technique, initiates traffic control Entry 1 Case Information OR URO 1 FT Case Level None Wound Class 2 - Clean-Contaminated Specialty Urology Preop Diagnosis BPH WITH OBSTRUCTION, Postop Same As Preop Yes HISTORY OF PROSTATE CANCER Postop Diagnosis BPH WITH OBSTRUCTION, Outcomes Met? Yes HISTORY OF PROSTATE CANCER Last Modified By: Nancy Ramírez RN 06/07/24 10:31:48 Post-Care Text: The patient is free from signs and symptoms of infection EU IntraOp - FTURO Pre-Care Text: Implements protective measures prior to operative or invasive procedure, confirms identity before the operative or invasive procedure, verifies operative procedure, surgical site, and laterality Entry 1 EU Perioperative Protocols Procedure(s) CYSTOSCOPY LOCAL(.) Patient Identity Birthday, ID Band Verified (select at Check, Patient least 2): Participation Consents / H and P H&P, Surgery/Procedure Operative Site N/A Verified Consent Marking Verified Surgical Site Yes Laterality Verified n/a Verified Procedure Verified Yes Correct Patient Yes Position Verified Availability Equipment, Medication Time Out MELVIN BRAMBILA, Zeferino Jose, Verified (If Participants Darrell WHITE, Nancy Applicable) Ashely Malik CST, Niurka Reynolds Time Out Complete 06/07/24 10:38:00 Allergies Reviewed? Yes Allergies Reviewed Self/Patient With Body Position Supine Prep Area PENIS Prep Agents Betadine Solution Skin. Condition Unable to Visualize Description PARTIALLY CLOTHED AND DRAPED Additional None Specimens Collected Vitals - EU Blood Pressure 114/75 Pulse 78 bpm Respirations 18 br/min SPO2 95 % I&O - EU Outcomes Met? Yes Last Modified By: Nancy Ramírez RN 06/07/24 10:38:13 Post-Care Text: The patient is free from signs and symptoms of injury caused by extraneous objects Sign Out FTURO Entry 1 Before Patient Leaves OR Nurse verbally Yes Nurse verbally Yes confirms with the confirms with the team the name of team that the procedure(s) instrument, sponge, recorded and needle counts are correct (or N/A) Nurse verbally n/a Nurse verbally n/a confirms with the confirms with the team how the team whether there specimen is labeled are any equipment (including patient problems to be name), if applicable addressed Sign Out Complete 06/07/24 10:45:00 Last Modified By: Nancy Ramírez RN 06/07/24 10:45:34 Case Comments Finalized By: Nancy Ramírez RN Document Signatures Signed By: Nancy Ramírez RN 06/07/24 10:49 Normal [facility] Main OR Preoperative Recordo n 06-07-2024 Main OR Preoperative Record Main OR Preoperative Record Holding Area Document Type FTURO Summary Primary Physician: Zeferino CHARLES MD Finalized Date/Time: 06/07/24 10:17:48 Pt. Name: DEBBI ZENDEJAS/Sex: 1945 Male Med Rec #: [id number] Physician: Zeferino CHARLES MD Financial #: [id number] Pt. Type: O Room/Bed: / Admit/Disch: 06/07/24 09:28:23 - Institution: Case Times Holding FTURO Pre-Care Text: Verifies consent for planned procedure, identifies individual values and wishes concerning care, includes family members in perioperative teaching Secures patient's records' belongings, and valuables, maintains patient's dignity and privacy, and maintains patient confidentiality Entry 1 In Holding 06/07/24 10:15:00 Outcomes Met? Yes Last Modified By: Devorah Kaye 06/07/24 10:15:37 Post-Care Text: The patient participates in decisions affecting his or her perioperative plan of care The patient's right to privacy is maintained Surgery Checklist FTURO Entry 1 Patient Birthday, ID Band Procedure History and Physical, Identification: Check, Patient Verification: Surgical Consent, With Participation Patient NPO after Midnight: n/a Date/Time: 06/07/24 10:16:00 Personal Items: Jewelry Personal Items clothes Comment: Limitations: n/a Complaints of Pain: n/a Pain Comment: n/a Skin Integrity Unable to Visualize Vitals - EU Blood Pressure 114/75 Pulse 78 bpm Respirations 18 br/min SPO2 95 % Additional None Specimens Comment n/a Specimens Collected Residual Amount - 0 RN Reviewed Yes Post Void Last Modified By: Devorah aKye 06/07/24 10:17:43 Finalized By: Devorah Kaye Document Signatures Signed By: Devorah Kaye 06/07/24 10:17 Devorah Kaye 06/07/24 10:17 Normal [facility] Operative Reporton Operative Report Operative Report Patient: DEBBI ZENDEJAS Age: 78 years Sex: Male : 1945 Associated Diagnoses: None Author: Zeferino CHARLES MD Procedure Operative Information Details: Date/ Time: 06/07/2024 10:48:00. Pre-Op Dx: Hx of Prostate CA - Z85.46, Incomplete Bladder Emptying - R39.14. Post-Op Dx: Same. Anesthesia Type: Local. Procedure: Local Cystoscopy. Complications: None. Risks/Benefits/Informed Consent: Surgical risks, benefits, details of the procedure have been explained to the patient, Full informed consent has been obtained. Intraoperative Information Prepped: Patient is brought back to the endoscopy suite, Patient is placed in supine position, Patient prepped in the usual fashion with Betadine solution, 2% Xylocaine Jelly is placed per Urethra, After waiting several minutes the Cystoscope is introduced. The Urethra is: Normal. The Prostatic Urethra is: Unobstructed, No visible UroLift bands. The Bladder is: Trabeculated (Moderate (2), No bladder tumors.). The ureteral orifices: Show efflux of clear urine. Devices Implanted: None. Removal: Cystoscope is removed, The patient tolerated it well. Postoperative Information Discharge: Patient is discharged home with antibiotic coverage, Follow up arranged. He will continue his Flomax; twice a day not 3 times a day. He will follow-up with Ivonne Somers in 6 months.. Normal [facility] Comment on above: Result Comment: Elec tronically Signed By: Zeferino CHARLES MD\.br\Date and Time Signed: 06/07/24 10:49 EDT POCT Protime / INRon 024 INR Coag (PPP) [Relative time] 2.3 {INR} Abnormal 0.8 - 1.2 [facility] Interpretation and review of laboratory results Abnormal [facility] POCT Protime / INRon 05-27-2 024 INR Coag (PPP) [Relative time] 1.5 {INR} Abnormal 0.8 - 1.2 [facility] Interpretation and review of laboratory results Abnormal [facility] POCT Protime / INRon 05-20-2 024 INR Coag (PPP) [Relative time] 1.3 {INR} Abnormal 0.8 - 1.2 [facility] Interpretation and review of laboratory results Abnormal [facility] POCT Protime / INRon 05-11-2 024 INR Coag (PPP) [Relative time] 1.2 {INR} 0.8 - 1.2 [facility] POCT Protime / INRon 16-2 024 INR Coag (PPP) [Relative time] 1.9 {INR} Abnormal 0.8 - 1.2 [facility] Interpretation and review of laboratory results Abnormal [facility] Patient Letter [facility] April 14, 2024 DEBBI ZENDEJAS [address] [place] [address] : 1945 Dear Karson Zendejas , You missed your scheduled appointment on: 03/15/[address] Charles for your bladder scope. Please note our appointment slots fill quickly. When you fail to cancel or reschedule an appointment the office is unable to fill the appointment slot that was reserved for you. In the future, we ask that you call 24 hours in advance to cancel your appointment. Our current reminder system gives you the opportunity to cancel by responding to our reminder text, phone call or email. You can also call the office to reschedule during normal business hours or use our on-line scheduling portal at your convenience. Our goal is to provide convenient and quality care to all of our patients. We appreciate your consideration regarding any future cancellations. Please call the office so we can reschedule your missed Cystoscopy/bladder scope. Sincerely, [facility]; , Option #3 Normal [facility] POCT Protime / INRon 024 INR Coag (PPP) [Relative time] 2.4 {INR} Abnormal 0.8 - 1.2 [facility] Interpretation and review of laboratory results Abnormal [facility] POCT EKGon 03-21-2024 [facility] ED Note-Physicianon 02-18-20 24 ED Note-Physician [id number]#1.00TIFF Normal [facility] ED Note-Physician [id number]#1.00TIFF Normal [facility] Lab Reportson 02-18-2024 Lab Reports [id number]#1.00TIFF Normal [facility] Lab Reports [id number]#1.00TIFF Normal [facility] Lab Reports [id number]#1.00TIFF Normal [facility] Screenson 02-18-2024 Screens [id number]#1.00TIFF Normal [facility] Screens [id number]#1.00TIFF Normal [facility] Creatinine [Mass/volume] in UrineOrdered By: Isabel Maza on 02-17-2024 Creatinine (U) [Mass/Vol] 76.00 mg/dL [facility] Comment on above: No reference range e stablished Microalbumin [Mass/volume] i n UrineOrdered By: Isabel Maza on 02-17-2024 Albumin DL <= 20 mg/L (U) [Mass/Vol] 2.1 mg/dL High 0.0-1.8 [facility] No Panel Informationon 02-16 Bedside Glucose 129 [facility] Urine microalbumin/creatinin e mass ratioOrdered By: Isabel Maza on 02-17-2024 Albumin/Creatinine DL <= 20 mg/L (U) [Mass ratio] 27.6 mg/g 0.0-30.0 [facility] Comment on above: 30-300 mg/g indicate s an increased risk for diabetic nephropathy. Greater than 300 mg/g is consistent with clinical nephropathy. (Am. J. Kidney Disease 1994, 25:107) Urology Office/Clinic Noteon 02-16-2024 Urology Office/Clinic Note Chief Complaint Increased difficulty urinating HPI Staff PRW pt (previous RWR pt) Last seen in our office 11/30/23 Dx: BPH with obstruction, hx of prostate cancer, impotence and anticoagulated. S/P urolift 02/29/20. Brachytherapy 08/05/18 PSA done 10/22/23 - 0.07 Cialis 20mg PRN and Tamsulosin (qd has been charted, however BID in med list) Pt phoned in 01/12/24 for Tamsulosin refill stating that he needed a refill because he had been sometimes taking it 3x daily instead of BID due to worsening urinary symptoms. He was advised that the max dose should be BID and he should be seen for his issues. Pt states he has been taking Tamsulosin 3-4x/day. Recently Dx'd w/DM Has been having increased hesitancy. Occasional post void dribbling. States he has better flow with increased Tamsulosin. PVR 33ml History of Present Illness staff HPI reviewed and agree. Review of Systems PHQ Score Initial Depression Screen Score: 0 SCORE no fever, chills, malaise, myalgia. no rash/lesions. no chest pain, palpitations, or SOB. no abdominal pain, nausea, vomiting. no unilateral calf swelling, redness, pain Physical Exam Vitals & Measurements HR: 80(Peripheral) RR: 16 BP: 127/68 HT: 70 in HT: 177 cm WT: 63.7 kg WT: 140.14 lb BMI: 20.33 General: nontoxic, NAD Mouth: moist mucosa Lungs: normal respiratory effort Cardio: regular rate, good distal perfusion Abdomen: nondistended, no suprapubic distention or tenderness, no CVA tenderness Neurologic: Grossly normal Skin: No rashes or suspicious lesions Assessment/Plan Prior Dr. Forbes pt. Current Dr. Charles pt. Accompanied by his today. Recently dx'd with diabetes. 1. BPH with urinary obstruction (N40.1: Benign prostatic hyperplasia with lower urinary tract symptoms) S/p UroLift 02/29/20. Feels it helped urination, however states he was hospitalized due to blood loss. IPSS 12 PVR 33 cc Pt called our office 01/12/24 for Tamsulosin refill stating that he needed a refill because he had been sometimes taking it 3x daily instead of BID due to worsening urinary symptoms. He was advised that the max dose should be BID and he should be seen for his issues. Unfortunately, despite our recommendations, pt has continued to overdose on Tamsulosin, taking 3 every day, sometimes up to 4 or 5 per day. He filled #180 on 01/12/24 and says he's nearly out of that bottle. In the meantime, he has been in ER several times, more than once for dizziness/weakness. Advised pt that it is not safe to exceed 0.8mg within 24hrs. Explained side effects like hypotension. States he has been taking that many per day since it helps him relax to urinate. States it can be difficult to start his stream and once he gets it started it's very weak. This is bothersome to him. Recommended cystoscopic eval due to worsening sx despite being on maximum dose of Flomax. Pt wishes to proceed. -Cont Flomax 0.4mg bid, do not exceed 0.8mg within 24hrs. Cancel 3mo supply and only give 1mo at a time to ensure no overdosing. Called [facility] and spoke w pharmacist. They are aware of the issue/plan. -Will schedule cysto with Dr. Charles. Prophy abx sent. The risks and benefits for cystoscopy have been discussed. The risks include bleeding, infection, and irritation of the bladder and urinary channel, among others. The patient, after being informed of procedural details and after questions have been answered, wishes to proceed. Full informed consent has been obtained. Will order Local anesthesia. 2. History of prostate cancer (Z85.46: Personal history of malignant neoplasm of prostate) PSA: 10/29/21- 0.12 11/03/22 - 0.12 10/22/23 - 0.07 S/p brachytherapy 08/05/18. Follows w/ Dr. Catalan annually. -radiation changes could be contributing to bothersome sx. see #1. -PSA due 10/2024 -Already has appt scheduled with Dr. Charles 3. Impotence (N52.9: Male erectile dysfunction, unspecified) СЕРГЕЙ 4. Taking Cialis 20mg prn. -did not address today. but per pharm review, pt has not been overfilling these. 4. Anticoagulated (Z79.01: jail (current) use of anticoagulants) Warfarin. Elevated risk for periop complications. Follow-up With When Contact Information MARJ SOMERS PA-C, URL [phone] [place] [address] Additional Instructions: Sched cysto Patient Education Cystoscopy Benign Prostatic Hyperplasia Documentation recorded by the tariq Kaplan accurately reflects the services(s) I performed and decisions made by me. Authenticated by Marj Somers PA-C on 02/16/2024 14:54:23. ILuz Marina, personally scribed for Ivonne Somers PA-C on 02/16/2024 14:43:22. . 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 Normal [facility] Comment on above: Result Comment: Elec tronically Signed By: MARJ SOMERS PA-C\.br\Date and Time Signed: 02/16/24 14:55 EDT\.br\Electronically Co-Signed By: Luz Marina Kaplan\.br\Date and Time Co-Signed: 02/16/24 14:43 EDT\.br\Electronically Co-Signed By: Luz Marina Kaplan\.br\Date and Time Co-Signed: 02/16/24 14:46 EDT POCT Protime / INRon 02-11- 024 INR Coag (PPP) [Relative time] 3.1 {INR} Abnormal 0.8 - 1.2 [facility] Interpretation and review of laboratory results Abnormal [facility] POCT Protime / INRon 024 INR Coag (PPP) [Relative time] 3.0 {INR} Abnormal 0.8 - 1.2 [facility] Interpretation and review of laboratory results Abnormal [facility] POCT Protime / INRon 024 INR Coag (PPP) [Relative time] 3.8 {INR} Abnormal 0.8 - 1.2 [facility] Interpretation and review of laboratory results Abnormal [facility] POCT Protime / INRon 024 INR Coag (PPP) [Relative time] 4.6 {INR} Abnormal 0.8 - 1.2 [facility] Interpretation and review of laboratory results Abnormal [facility] Activated partial thrombopla stin time (aPTT) in platelet poor plasma by coagulation aOrdered By: Liu Ferraro on 01-09-2024 aPTT Coag (PPP) [Time] 83.5 s 25.1-36.5 [facility] Comment on above: A hematocrit value g reater than 55% may lead to inaccurate results in coagulation testing. Patients having hematocrit values >55% require a special collection tube for coagulation studies. Please contact the laboratory at [phone] for redraw instructions. Glucose Glucometer (BldC) [M ass/Vol]Ordered By: Anton Mirza on 01-09-2024 Glucose [Mass/Vol] 211 mg/dL [facility] Comment on above: Random Glucose Refer ence Range is dependent on time and content of last meal. Glucose of more than 200 mg/dL in a nonstressed, ambulatory subject supports the diagnosis of Diabetes Mellitus. INR in Platelet poor plasma by Coagulation assayOrdered By: Liu Ferraro on 01-09-2024 INR Coag (PPP) [Relative time] 1.1 {INR} [facility] Comment on above: INR Therapeutic Rang [...] with mechanical heart valves: 3 - 4.5 Prothrombin time (PT)Ordered By: Liu Ferraro on 01-09-2024 PT Coag (PPP) [Time] 13.1 s 9.0-12.9 [facility] Comment on above: A hematocrit value g reater than 55% may lead to inaccurate results in coagulation testing. Patients having hematocrit values >55% require a special collection tube for coagulation studies. Please contact the laboratory at [phone] for redraw instructions. Protime & INRon 01-09-2024 [facility] No Panel InformationOrdered By: Anton Mirza on 01-08-2024 Bedside Glucose Comment Glu2: cleaned meter [facility] Protime & INRon 01-08-2024 INR Coag (PPP) [Relative time] 1.5 {INR} Abnormal 0.9 - 1.1 [facility] Interpretation and review of laboratory results Abnormal [facility] Basophils Auto (Bld) [#/Vol] Ordered By: Kel Rojas on 01-07-2024 Basophils (Bld) [#/Vol] 0.0 10*3/uL 0.0-0.2 [facility] Basophils/100 WBC Auto (Bld) Ordered By: Kel Rojas on 01-07-2024 Basophils/100 WBC (Bld) 0.3 % . [facility] Eosinophils Auto (Bld) [#/Vo l]Ordered By: Kel Rojas on 01-07-2024 Eosinophils (Bld) [#/Vol] 0.1 10*3/uL 0.0-0.45 [facility] Eosinophils/100 WBC Auto (Bl d)Ordered By: Kel Rojas on 01-07-2024 Eosinophils/100 WBC (Bld) 1.3 % . [facility] Erythrocyte distribution wid th Auto (RBC) [Ratio]Ordered By: Kel Rojas on 01-07-2024 Erythrocyte distribution width (RBC) [Ratio] 13.4 % 12.0-14.8 [facility] Hematocrit Auto (Bld) [Volum e fraction]Ordered By: Kel Rojas on 01-07-2024 Hematocrit (Bld) [Volume fraction] 45.1 % 38.8-50.0 [facility] Hemoglobin [Mass/volume] in BloodOrdered By: Kel Rojas on 01-07-2024 Hemoglobin (Bld) [Mass/Vol] 15.4 g/dL 13.0-17.0 [facility] Leukocytes [#/volume] correc earnest for nucleated erythrocytes in Blood by Automated counOrdered By: Kel Rojas on 01-07-2024 WBC corrected for nucl RBC Auto (Bld) [#/Vol] 11.3 10*3/uL 4.1-10.5 [facility] Lymphocytes Auto (Bld) [#/Vo l]Ordered By: Kel Rojas on 01-07-2024 Lymphocytes (Bld) [#/Vol] 1.8 10*3/uL 1.00-4.8 [facility] Lymphocytes/100 WBC Auto (Bl d)Ordered By: Kel Rojas on 01-07-2024 Lymphocytes/100 WBC (Bld) 15.8 % . [facility] MCH Auto (RBC) [Entitic mass ]Ordered By: Kel Rojas on 01-07-2024 MCH (RBC) [Entitic mass] 31.9 pg 27.5-35.2 [facility] MCHC Auto (RBC) [Mass/Vol]Or dered By: Kel Rojas on 01-07-2024 MCHC (RBC) [Mass/Vol] 34.2 g/dL 32.5-35.6 [facility] MCV Auto (RBC) [Entitic vol] Ordered By: Kel Rojas on 01-07-2024 MCV (RBC) [Entitic vol] 93.4 fL 83.5-101 [facility] Monocytes Auto (Bld) [#/Vol] Ordered By: Kel Rojas on 01-07-2024 Monocytes (Bld) [#/Vol] 0.9 10*3/uL 0.0-0.8 [facility] Monocytes/100 WBC Auto (Bld) Ordered By: Kel Rojas on 01-07-2024 Monocytes/100 WBC (Bld) 7.7 % . [facility] Neutrophils Auto (Bld) [#/Vo l]Ordered By: Kel Rojas on 01-07-2024 Neutrophils (Bld) [#/Vol] 8.5 10*3/uL 1.8-7.7 [facility] Neutrophils/100 WBC Auto (Bl d)Ordered By: Kel Rojas on 01-07-2024 Neutrophils/100 WBC (Bld) 74.9 % . [facility] Nucleated erythrocytes [Pres ence] in Blood by Automated countOrdered By: Kel Rojas on 01-07-2024 Nucleated RBC Auto Ql (Bld) 0.0 /100{WBC} 0-0.5 [facility] Platelet mean volume Auto (B ld) [Entitic vol]Ordered By: Kel Rojas on 01-07-2024 Platelet mean volume (Bld) [Entitic vol] 9.6 fL 6.6-10.1 [facility] Platelets Auto (Bld) [#/Vol] Ordered By: Kel Rojas on 01-07-2024 Platelets (Bld) [#/Vol] 180 10*3/uL 150-450 [facility] Protime & INRon 01-07-2024 INR Coag (PPP) [Relative time] 2.8 {INR} Abnormal 0.9 - 1.1 [facility] Interpretation and review of laboratory results Abnormal [facility] RBC Auto (Bld) [#/Vol]Ordere d By: Kel Rojas on 01-07-2024 RBC (Bld) [#/Vol] 4.83 10*6/uL 3.90-5.60 [facility] WBC Auto (Bld) [#/Vol]Ordere d By: Kel Rojas on 01-07-2024 WBC (Bld) [#/Vol] 11.3 10*3/uL 4.1-10.5 [facility] Protime & INRon 01-06-2024 INR Coag (PPP) [Relative time] 3.8 {INR} Abnormal 0.9 - 1.1 [facility] Interpretation and review of laboratory results Abnormal [facility] Activated partial thrombopla stin time (aPTT) in platelet poor plasma by coagulation aOrdered By: Zeferino Parks on 01-05-2024 aPTT Coag (PPP) [Time] 45.0 s 25.1-36.5 [facility] Comment on above: A hematocrit value g reater than 55% may lead to inaccurate results in coagulation testing. Patients having hematocrit values >55% require a special collection tube for coagulation studies. Please contact the laboratory at [phone] for redraw instructions. Basophils Auto (Bld) [#/Vol] Ordered By: PROVIDER TEMP on 01-05-2024 Basophils (Bld) [#/Vol] 0.0 10*3/uL 0.0-0.2 [facility] Basophils/100 WBC Auto (Bld) Ordered By: PROVIDER TEMP on 01-05-2024 Basophils/100 WBC (Bld) 0.2 % . [facility] Calcium [Mass/volume] in Ser um or PlasmaOrdered By: PROVIDER TEMP on 01-05-2024 Calcium [Mass/Vol] 9.7 mg/dL 8.6-10.3 [facility] Carbon dioxide, total [Moles /volume] in Serum or PlasmaOrdered By: PROVIDER TEMP on 01-05-2024 CO2 [Moles/Vol] 28.9 mmol/L 21.0-31.0 [facility] Chloride [Moles/volume] in S rush or PlasmaOrdered By: PROVIDER TEMP on 01-05-2024 Chloride [Moles/Vol] 98 mmol/L 98-107 [facility] Creatine kinase [Enzymatic a ctivity/volume] in Serum or PlasmaOrdered By: PROVIDER TEMP on 01-05-2024 CK [Catalytic activity/Vol] 66 U/L 30-223 [facility] Creatinine [Mass/volume] in Serum or PlasmaOrdered By: PROVIDER TEMP on 01-05-2024 Creatinine [Mass/Vol] 0.98 mg/dL 0.70-1.30 [facility] Eosinophils Auto (Bld) [#/Vo l]Ordered By: PROVIDER TEMP on 01-05-2024 Eosinophils (Bld) [#/Vol] 0.1 10*3/uL 0.0-0.45 [facility] Eosinophils/100 WBC Auto (Bl d)Ordered By: PROVIDER TEMP on 01-05-2024 Eosinophils/100 WBC (Bld) 1.0 % . [facility] Erythrocyte distribution wid th Auto (RBC) [Ratio]Ordered By: PROVIDER TEMP on 01-05-2024 Erythrocyte distribution width (RBC) [Ratio] 13.5 % 12.0-14.8 [facility] Glucose [Mass/volume] in Ser um or PlasmaOrdered By: PROVIDER TEMP on 01-05-2024 Glucose [Mass/Vol] 283 mg/dL 70-100 [...] from glycated hemoglobin (Bld) [Mass/Vol] 235 mg/dL [facility] Hematocrit Auto (Bld) [Volum e fraction]Ordered By: PROVIDER TEMP on 01-05-2024 Hematocrit (Bld) [Volume fraction] 47.1 % 38.8-50.0 [facility] Hemoglobin A1c percentageOrd ered By: Zeferino Parks on 01-05-2024 HbA1c (Bld) [Mass fraction] 9.8 % 4.3-5.6 [facility] Comment on above: Increased risk for d iabetes: 5.7 - 6.4diabetes: >6.4glycemic control for adults with diabetes: <7.0 Hemoglobin [Mass/volume] in BloodOrdered By: PROVIDER TEMP on 01-05-2024 Hemoglobin (Bld) [Mass/Vol] 16.0 g/dL 13.0-17.0 [facility] INR in Platelet poor plasma by Coagulation assayOrdered By: Zeferino Parks on 01-05-2024 INR Coag (PPP) [Relative time] 4.1 {INR} Abnormal 0.9 - 1.1 [facility] Comment on above: INR Therapeutic Rang [...] erythrocytes in Blood by Automated counOrdered By: PROVIDER TEMP on 01-05-2024 WBC corrected for nucl RBC Auto (Bld) [#/Vol] 10.1 10*3/uL 4.1-10.5 [facility] Lymphocytes Auto (Bld) [#/Vo l]Ordered By: PROVIDER TEMP on 01-05-2024 Lymphocytes (Bld) [#/Vol] 1.3 10*3/uL 1.00-4.8 [facility] Lymphocytes/100 WBC Auto (Bl d)Ordered By: PROVIDER TEMP on 01-05-2024 Lymphocytes/100 WBC (Bld) 13.2 % . [facility] MCH Auto (RBC) [Entitic mass ]Ordered By: PROVIDER TEMP on 01-05-2024 MCH (RBC) [Entitic mass] 31.9 pg 27.5-35.2 [facility] MCHC Auto (RBC) [Mass/Vol]Or dered By: PROVIDER TEMP on 01-05-2024 MCHC (RBC) [Mass/Vol] 34.0 g/dL 32.5-35.6 [facility] MCV Auto (RBC) [Entitic vol] Ordered By: PROVIDER TEMP on 01-05-2024 MCV (RBC) [Entitic vol] 93.7 fL 83.5-101 [facility] Monocyte distribution width [Entitic volume] in Blood by AutomatedOrdered By: PROVIDER TEMP on 01-05-2024 Monocyte distribution width Auto (Bld) [Entitic vol] 18.34 % 0.00-20.00 [facility] Monocytes Auto (Bld) [#/Vol] Ordered By: PROVIDER TEMP on 01-05-2024 Monocytes (Bld) [#/Vol] 0.7 10*3/uL 0.0-0.8 [facility] Monocytes/100 WBC Auto (Bld) Ordered By: PROVIDER TEMP on 01-05-2024 Monocytes/100 WBC (Bld) 7.1 % . [facility] Natriuretic peptide B [Mass/ Vol]Ordered By: Zeferino Parks on 01-05-2024 Natriuretic peptide B (Bld) [Mass/Vol] 80.0 pg/mL 5-100 [facility] Neutrophils Auto (Bld) [#/Vo l]Ordered By: PROVIDER TEMP on 01-05-2024 Neutrophils (Bld) [#/Vol] 7.9 10*3/uL 1.8-7.7 [facility] Neutrophils/100 WBC Auto (Bl d)Ordered By: PROVIDER TEMP on 01-05-2024 Neutrophils/100 WBC (Bld) 78.5 % . [facility] No Panel InformationOrdered By: PROVIDER TEMP on 01-05-2024 Estimated GFR (CKD-EPI) > 60.0 mL/Min [facility] Creatinine Clearance (Chem 59.78 [facility] Nucleated erythrocytes [Pres ence] in Blood by Automated countOrdered By: PROVIDER TEMP on 01-05-2024 Nucleated RBC Auto Ql (Bld) 0.1 /100{WBC} 0-0.5 [facility] Platelet mean volume Auto (B ld) [Entitic vol]Ordered By: PROVIDER TEMP on 01-05-2024 Platelet mean volume (Bld) [Entitic vol] 9.1 fL 6.6-10.1 [facility] Platelets Auto (Bld) [#/Vol] Ordered By: PROVIDER TEMP on 01-05-2024 Platelets (Bld) [#/Vol] 182 10*3/uL 150-450 [facility] Potassium [Moles/volume] in Serum or PlasmaOrdered By: PROVIDER TEMP on 01-05-2024 Potassium [Moles/Vol] 3.8 mmol/L 3.5-5.1 [facility] Prothrombin time (PT)Ordered By: Zeferino Parks on 01-05-2024 PT Coag (PPP) [Time] 45.2 s 9.0-12.9 [facility] Comment on above: A hematocrit value g reater than 55% may lead to inaccurate results in coagulation testing. Patients having hematocrit values >55% require a special collection tube for coagulation studies. Please contact the laboratory at [phone] for redraw instructions. Protime & INRon 01-05-2024 Interpretation and review of laboratory results Abnormal [facility] RBC Auto (Bld) [#/Vol]Ordere d By: PROVIDER TEMP on 01-05-2024 RBC (Bld) [#/Vol] 5.03 10*6/uL 3.90-5.60 [facility] Serum or plasma anion gap de terminationOrdered By: PROVIDER TEMP on 01-05-2024 Anion gap [Moles/Vol] 9.9 mmol/L 6.0-15.0 [facility] Sodium [Moles/volume] in Ser um or PlasmaOrdered By: PROVIDER TEMP on 01-05-2024 Sodium [Moles/Vol] 133 mmol/L 136-145 [facility] Troponin I.cardiac [Mass/vol ume] in Serum or Plasma by Detection limit <= 0.01 ng/Ordered By: Liu Ferraro on 01-05-2024 Troponin I.cardiac DL <= 0.01 ng/mL [Mass/Vol] 21.9 pg/mL 0.0-20.0 [facility] Troponin I.cardiac [Mass/vol ume] in Serum or Plasma by Detection limit <= 0.01 ng/Ordered By: Zeferino Parks on 01-05-2024 Troponin I.cardiac DL <= 0.01 ng/mL [Mass/Vol] 15.3 pg/mL 0.0-20.0 [facility] Urea nitrogen [Mass/volume] in Serum or PlasmaOrdered By: PROVIDER TEMP on 01-05-2024 Urea nitrogen [Mass/Vol] 16 mg/dL 7-25 [facility] WBC Auto (Bld) [#/Vol]Ordere d By: PROVIDER TEMP on 01-05-2024 WBC (Bld) [#/Vol] 10.1 10*3/uL 4.1-10.5 [facility] POCT Protime / INRon 11-25- 024 INR Coag (PPP) [Relative time] 2.6 {INR} Abnormal 0.8 - 1.2 [facility] Interpretation and review of laboratory results Abnormal [facility] No Panel Informationon 10-22 Prostate Specific Antigen 0.07 ng/mL <2.60 [facility] Comment on above: Total PSA test metho dology used is the Electrochemiluminescence Immunoassay by [employer]. Total PSA values by differing methodologies cannot be interchanged. POCT Protime / INRon 024 INR Coag (PPP) [Relative time] 3.0 {INR} Abnormal 0.8 - 1.2 [facility] Interpretation and review of laboratory results Abnormal [facility] POCT Protime / INRon 023 INR Coag (PPP) [Relative time] 2.4 {INR} Abnormal 0.8 - 1.2 [facility] Interpretation and review of laboratory results Abnormal [facility] US SCROTUMon 01-29-2021 US SCROTUM [...] LAURA ARANA Date: 2021-01-29 13:53 Normal The [facility] CT PELVIS WO CONon 0 CT PELVIS [...] YELENA MAGALLANES Date: 2020-05-04 11:32 Normal [facility] CULTURE URINEon 03-03-2020 CULTURE URINE Isolate 1 [...] Trimethoprim/Sulfamethoxaz ole <=20 S F Normal [facility] Comment on above: Performed By: #### B POWER PLANT INSPECTOR, BMP, LIVER, TROP #### [facility] [address] [address] Jerman Fierro CTA CHEST WO W CONon [...] by: ANNE HARRINGTON Date: 2020-03-01 19:06 Normal [facility] LACTATE/LACTIC ACIDon 2019 Lactate [Moles/Vol] 6.9 mmol/L Critically high 0.7-2.0 [facility] Comment on above: Result Comment: test repeated critical value verified Performed By: #### B POWER PLANT INSPECTOR, BMP, LIVER, TROP #### [facility] [address] [place] [address] Jermanefrain Fierro POINT OF CARE GLUCOSEon 02-06 Glucose [Mass/Vol] 197 mg/dL Critically high 74-106 [facility] Comment on above: Performed By: #### P OCGLUC #### [facility] [address] [place] [address] Jerman Sri TYPE AND SCREENon 03-01-2020 TYPE AND SCREEN Negative Normal [facility] Comment on above: Performed By: #### B POWER PLANT INSPECTOR, BMP, LIVER, TROP #### [facility] [address] [place] [address] Jerman Sri BNPon 02-29-2020 Natriuretic peptide B (Bld) [Mass/Vol] 952.0 pg/mL Critically high <=900.0 [facility] Comment on above: Performed By: #### B POWER PLANT INSPECTOR, BMP, LIVER, TROP #### [facility] [address] [place] [address] Jerman Sri CBC W MANUAL DIFFon 02-29-20 20 ATYPICAL LYMPH # Normal The [facility] Comment on above: Performed By: #### B POWER PLANT INSPECTOR, BMP, LIVER, TROP #### [facility] [address] [place] [address] Jerman Sri ATYPICAL LYMPH % Normal [facility] Comment on above: Performed By: #### B POWER PLANT INSPECTOR, BMP, LIVER, TROP #### [facility] [address] [place] [address] Jerman Sri BAND # 0.7 103/ul Critically high 0.0-0.[address] [facility] Comment on above: Performed By: #### B POWER PLANT INSPECTOR, BMP, LIVER, TROP #### [facility] [address] [place] [address] Jerman Sri BAND % 2 % Normal 0-5 [facility] Comment on above: Performed By: #### B POWER PLANT INSPECTOR, BMP, LIVER, TROP #### [facility] [address] [place] [address] Jerman Sri BASOM # 0.00 103/ul Normal 0.00-0.10 [facility] Comment on above: Performed By: #### B POWER PLANT INSPECTOR, BMP, LIVER, TROP #### [facility] [address] [place] [address] Jerman Sri BASOM % 0.0 % Critically low 0.2-2.0 [facility] Comment on above: Performed By: #### B POWER PLANT INSPECTOR, BMP, LIVER, TROP #### [facility] [address] [place] [address] Jerman Sri BLAST # Normal [facility] Comment on above: Performed By: #### B POWER PLANT INSPECTOR, BMP, LIVER, TROP #### [facility] [address] [place] [address] Jeramn Sri BLAST % Normal [facility] Comment on above: Performed By: #### B POWER PLANT INSPECTOR, BMP, LIVER, TROP #### [facility] [address] [place] [address] Jerman Sri CORRECTED WBC Normal 4.0-11.0 The [facility] Comment on above: Performed By: #### B POWER PLANT INSPECTOR, BMP, LIVER, TROP #### [facility] [address] [place] [address] Jerman Sri EOS # 0.00 103/ul Normal 0.00-0.70 [facility] Comment on above: Performed By: #### B POWER PLANT INSPECTOR, BMP, LIVER, TROP #### [facility] [address] [place] [address] Jerman Sri EOS% 0.0 % Critically low 0.9-7.0 [facility] Comment on above: Performed By: #### B POWER PLANT INSPECTOR, BMP, LIVER, TROP #### [facility] [address] [id number] Jerman Sri HCT 35.8 % Critically low 42.0-54.0 [facility] Comment on above: Performed By: #### B POWER PLANT INSPECTOR, BMP, LIVER, TROP #### [facility] [address] [address] Jerman Sri HGB 12.0 g/dl Critically low 14.0-18.0 The [facility] Comment on above: Performed By: #### B POWER PLANT INSPECTOR, BMP, LIVER, TROP #### [facility] [address] [address] Jerman Sri LYMPHM # 1.41 103/ul Normal 1.20-3.80 [facility] Comment on above: Performed By: #### B POWER PLANT INSPECTOR, BMP, LIVER, TROP #### [facility] [address] [address] Jerman Sri LYMPHM% 4.0 % Critically low 20.5-60.0 [facility] Comment on above: Performed By: #### B POWER PLANT INSPECTOR, BMP, LIVER, TROP #### [facility] [address] [address] Jerman Arenasen MCH 33.1 pg Normal 25.9-34.0 [facility] Comment on above: Performed By: #### B POWER PLANT INSPECTOR, BMP, LIVER, TROP #### [facility] [address] [address] Jerman Arenasen MCHC 33.5 g/dl Normal 29.9-35.2 [facility] Comment on above: Performed By: #### B POWER PLANT INSPECTOR, BMP, LIVER, TROP #### [facility] [address] [address] Jerman Sri MCV 98.6 fL Critically high 80.0-94.0 [facility] Comment on above: Performed By: #### B POWER PLANT INSPECTOR, BMP, LIVER, TROP #### [facility] [address] [address] Jerman Sri METAMYELOCYTE # Normal [facility] Comment on above: Performed By: #### B POWER PLANT INSPECTOR, BMP, LIVER, TROP #### [facility] [address] [id number] Jerman Sri METAMYELOCYTE % Normal [facility] Comment on above: Performed By: #### B POWER PLANT INSPECTOR, BMP, LIVER, TROP #### [facility] [address] [address] Jerman Sri MONOM# 2.46 103/ul Critically high 0.30-0.80 [facility] Comment on above: Performed By: #### B POWER PLANT INSPECTOR, BMP, LIVER, TROP #### [facility] [address] [address] Jerman Sri MONOM% 7.0 % Normal 1.7-12.0 [facility] Comment on above: Performed By: #### B POWER PLANT INSPECTOR, BMP, LIVER, TROP #### [facility] [address] [address] Jerman Sri MPV 11.2 fL Normal 9.5-13.5 [facility] Comment on above: Performed By: #### B POWER PLANT INSPECTOR, BMP, LIVER, TROP #### [facility] [address] [id number] Jerman Sri MYELOCYTE # Normal [facility] Comment on above: Performed By: #### B POWER PLANT INSPECTOR, BMP, LIVER, TROP #### [facility] [address] [id number] Jerman Sri MYELOCYTE % Normal [facility] Comment on above: Performed By: #### B POWER PLANT INSPECTOR, BMP, LIVER, TROP #### [facility] [address] [id number] Jerman Sri NRBC Normal [facility] Comment on above: Performed By: #### B POWER PLANT INSPECTOR, BMP, LIVER, TROP #### [facility] [address] [id number] Jerman Sri PLT 185 103/ul Normal 150-450 [facility] Comment on above: Performed By: #### B POWER PLANT INSPECTOR, BMP, LIVER, TROP #### [facility] [address] [id number] Jerman Sri RBC 3.63 106/ul Critically low 4.70-6.[address] [facility] Comment on above: Performed By: #### B POWER PLANT INSPECTOR, BMP, LIVER, TROP #### [facility] [address] [address] Jerman Fierro RDW 12.5 % Normal 11.0-15.0 [facility] Comment on above: Performed By: #### B POWER PLANT INSPECTOR, BMP, LIVER, TROP #### [facility] [address] [address] Jerman Sri SEG # 30.62 103/ul Critically high 1.40-6.50 The [facility] Comment on above: Performed By: #### B POWER PLANT INSPECTOR, BMP, LIVER, TROP #### [facility] [address] [address] Jerman Sri SEG % 87.0 % Critically high 43.0-75.[address] [facility] Comment on above: Performed By: #### B POWER PLANT INSPECTOR, BMP, LIVER, TROP #### [facility] [address] [address] Jerman Sri WBC 35.2 103/ul Critically high 4.0-11.0 [facility] Comment on above: Result Comment: test repeated critical value verified Performed By: #### B POWER PLANT INSPECTOR, BMP, LIVER, TROP #### [facility] [address] [place] [address] Jerman Sri CULTURE BLOODon 02-29-2020 Microscopic examination of blood, culture Culture Observations: No growth at 5 days Normal [facility] Comment on above: Performed By: #### B POWER PLANT INSPECTOR, BMP, LIVER, TROP #### [facility] [address] [place] [address] Jerman Sri Microscopic examination of blood, culture Culture Observations: No growth at 5 days Normal [facility] Comment on above: Performed By: #### B POWER PLANT INSPECTOR, BMP, LIVER, TROP #### [facility] [address] [place] [address] Jermanefrain Arenasen D-DIMERon 02-29-2020 D-DIMER COMMENTS SEE BELOW Normal [facility] Comment on above: Result Comment: Incr [...] hospitalization. Performed By: #### D DIM #### [facility] [address] [place] [address] Jemranefrain Fierro Fibrin D-dimer FEU IA (Bld) [Mass/Vol] 4.29 ug/mL Critically high 0.19-0.50 [facility] Comment on above: Result Comment: test repeated critical value verified Performed By: #### D DIM #### [facility] [address] [place] [address] Jerman Sri ER URINE PROFILEon 0 Bilirubin Ql (U) SMALL Normal NEGATIVE [facility] Comment on above: Performed By: #### YENIFER EGAN #### [facility] [address] [place] [address] Jerman Sri Clarity (U) CLOUDY Normal [facility] Comment on above: Performed By: #### YENIFER EGAN #### [facility] [address] [place] [address] Jerman Sri Color (U) DK. ORANGE Normal YELLOW [facility] Comment on above: Performed By: #### YENIFER EGAN #### [facility] [address] [place] [address] Jerman Sri ERUAHD A micrscopic examina tion will be performed if indicated. Normal [facility] Comment on above: Performed By: #### YENIFER EGAN #### [facility] [address] [place] [address] Jerman Sri Glucose Ql (U) 500 mg/dl Normal NEGATIVE The [facility] Comment on above: Performed By: #### YENIFER EGAN #### [facility] [address] [place] [address] Jerman Sri Hemoglobin Ql (U) LARGE Normal NEGATIVE [facility] Comment on above: Performed By: #### YENIFER EGAN #### [facility] [address] [place] [address] Jerman Sri Ketones Ql (U) Negative Normal NEGATIVE [facility] Comment on above: Performed By: #### YENIFER EGAN #### [facility] [address] [place] [address] Jerman Sri LEUKOCYTES TRACE Normal NEGATIVE [facility] Comment on above: Performed By: #### GHISLAINE EGANRO #### [facility] [address] [place] [address] Jerman Sri Nitrite Ql (U) Positive Normal NEGATIVE The [facility] Comment on above: Performed By: #### YENIFER EGAN #### [facility] [address] [place] [address] Jerman Sri pH (U) 5.0 [pH] Normal 5-9 [facility] Comment on above: Performed By: #### YENIFER EGAN #### [facility] [address] [place] [address] Jerman Sri Protein Ql (U) >300 Normal [facility] Comment on above: Performed By: #### YENIFER EGAN #### [facility] [address] [place] [address] Jerman Sri SPEC GRAVITY >=1.030 Normal 1.005-<=1. 025 [facility] Comment on above: Performed By: #### GHISLAINE EGANRO #### [facility] [address] [place] [address] Jerman Sri UR MICRO IND INDICATED Normal [facility] Comment on above: Performed By: #### YENIFER EGAN #### [facility] [address] [place] [address] Jerman Sri Urobilinogen Qn (U) 1.0 {Keren'U}/dL Normal [facility] Comment on above: Performed By: #### YENIFER EGAN #### [facility] [address] [place], [place] [address] Jerman Sri LACTATE/LACTIC ACIDon 2019 Lactate [Moles/Vol] 10.7 mmol/L Critically high 0.7-2.0 [facility] Comment on above: Result Comment: test repeated critical value verified Performed By: #### L ACT #### [facility] [address] [address] Jerman Sri LIVER PROFILEon 02-29-2020 Albumin [Mass/Vol] 3.7 g/dL Normal 3.5-5.0 [facility] Comment on above: Performed By: #### B POWER PLANT INSPECTOR, BMP, LIVER, TROP #### [facility] [address] [place], [place] [id number] Jerman Sri Albumin/Globulin [Mass ratio] 1.3 {ratio} Normal [facility] Comment on above: Performed By: #### B POWER PLANT INSPECTOR, BMP, LIVER, TROP #### [facility] [address] [address] Jerman Sri ALP [Catalytic activity/Vol] 82 U/L Normal 38-126 [facility] Comment on above: Performed By: #### B POWER PLANT INSPECTOR, BMP, LIVER, TROP #### [facility] [address] [place] [address] Jerman Sri ALT [Catalytic activity/Vol] 26 U/L Normal 21-72 [facility] Comment on above: Performed By: #### B POWER PLANT INSPECTOR, BMP, LIVER, TROP #### [facility] [address] [address] Jerman Sri AST [Catalytic activity/Vol] 18 U/L Normal 17-59 [facility] Comment on above: Performed By: #### B POWER PLANT INSPECTOR, BMP, LIVER, TROP #### [facility] [address] [place], [place] [id number] Jerman Sri BILI, CONJUGATED 0.3 mg/dL Normal 0.0-0.3 The [facility] Comment on above: Performed By: #### B POWER PLANT INSPECTOR, BMP, LIVER, TROP #### [facility] [address] [place], [place] [address] Jerman Sri Bilirubin [Mass/Vol] 1.2 mg/dL Normal 0.2-1.3 The [facility] Comment on above: Performed By: #### B POWER PLANT INSPECTOR, BMP, LIVER, TROP #### [facility] [address] [id number] Jerman Sri Globulin (S) [Mass/Vol] 2.9 g/dL Normal [facility] Comment on above: Performed By: #### B POWER PLANT INSPECTOR, BMP, LIVER, TROP #### [facility] [address] [address] Jerman Sri Protein [Mass/Vol] 6.6 g/dL Normal 6.1-8.2 The [facility] Comment on above: Performed By: #### B POWER PLANT INSPECTOR, BMP, LIVER, TROP #### [facility] [address] [place], [place] [id number] Jerman Sri PH VENOUS BLOODon 02-29-2020 PCO2 VENOUS 52.1 mmHg Critically high 40.0-52.0 [facility] Comment on above: Performed By: #### P HVEN #### [facility] [address] [place], [place] [id number] Jerman Sri pH VENOUS 7.23 Critically low 7.33-7.43 The [facility] Comment on above: Performed By: #### P HVEN #### [facility] [address] [place], [place] [id number] Jerman Sri PROF CHEM 8 (BAS METB)on Anion gap [Moles/Vol] 20.9 mmol/L Normal [facility] Comment on above: Performed By: #### B POWER PLANT INSPECTOR, BMP, LIVER, TROP #### [facility] [address] [id number] Jerman Sri Calcium [Mass/Vol] 9.0 mg/dL Normal 8.4-10.2 [facility] Comment on above: Performed By: #### B POWER PLANT INSPECTOR, BMP, LIVER, TROP #### [facility] [address] [place], [place] [id number] Jerman Sri Chloride [Moles/Vol] 92 mmol/L Critically low 98-107 [facility] Comment on above: Performed By: #### B POWER PLANT INSPECTOR, BMP, LIVER, TROP #### [facility] [address] [place] [address] Jerman Sri CO2 [Moles/Vol] 20.8 mmol/L Critically low 22.0-30.0 [facility] Comment on above: Performed By: #### B POWER PLANT INSPECTOR, BMP, LIVER, TROP #### [facility] [address] [place] [address] Jerman Sri Creatinine [Mass/Vol] 1.72 mg/dL Critically high 0.66-1.25 [facility] Comment on above: Performed By: #### B POWER PLANT INSPECTOR, BMP, LIVER, TROP #### [facility] [address] [place] [address] Jerman Sri EGFR-AF DUTCH 47 mL/min/1.73m2 Critically low >=60 [facility] Comment on above: Performed By: #### B POWER PLANT INSPECTOR, BMP, LIVER, TROP #### [facility] [address] [place] [address] Jerman Sri EGFR-NON AF DUTCH 39 mL/min/1.73m2 Critically low >=60 [facility] Comment on above: Performed By: #### B POWER PLANT INSPECTOR, BMP, LIVER, TROP #### [facility] [address] [place] [address] Jerman Sri Glucose [Mass/Vol] 336 mg/dL Critically high 74-106 T [facility] Comment on above: Performed By: #### B POWER PLANT INSPECTOR, BMP, LIVER, TROP #### [facility] [address] [place] [address] Jerman Sri Potassium [Moles/Vol] 3.7 mmol/L Normal 3.4-5.0 [facility] Comment on above: Performed By: #### B POWER PLANT INSPECTOR, BMP, LIVER, TROP #### [facility] [address] [place] [address] Jerman Sri Sodium [Moles/Vol] 130 mmol/L Critically low 137-145 Th [facility] Comment on above: Performed By: #### B POWER PLANT INSPECTOR, BMP, LIVER, TROP #### [facility] [address] [place] [address] Jermanefrain Fierro Urea nitrogen [Mass/Vol] 17.0 mg/dL Normal 9.0-20.0 [facility] Comment on above: Performed By: #### B POWER PLANT INSPECTOR, BMP, LIVER, TROP #### [facility] [address] [address] Jerman Fierro Urea nitrogen/Creatinine [Mass ratio] 9.9 mg/mg Normal The [facility] Comment on above: Performed By: #### B POWER PLANT INSPECTOR, BMP, LIVER, TROP #### [facility] [address] [place] [address] Jermanefrain Fierro PROTIMEon 02-29-2020 INR Coag (PPP) [Relative time] 1.03 {INR} Normal The [facility] Comment on above: Performed By: #### B POWER PLANT INSPECTOR, BMP, LIVER, TROP #### [facility] [address] [place] [address] Jerman Sri INR GUIDELINES SEE BELOW Normal The [facility] Comment on above: Result Comment: BESSY RED INR: 2.0 - 3.0 CONDITIONS NOT LISTED BELOW 2.5 - 3.5 FOR PROSTHETIC HEART VALVE REPLACEMENT 2.5 - 3.5 RECURRENT THROMBOSIS Performed By: #### B POWER PLANT INSPECTOR, BMP, LIVER, TROP #### [facility] [address] [place] [address] Jerman Sri PT Coag (PPP) [Time] 10.7 s Normal 9.0-11.6 [facility] Comment on above: Performed By: #### B POWER PLANT INSPECTOR, BMP, LIVER, TROP #### [facility] [address] [place] [address] Jerman Sri PT NORMAL PLEASE NOTE: NORMAL RANGE CHANGE 05-25-2014 DUE TO REAGENT LOT CHANGE Normal The [facility] Comment on above: Performed By: #### B POWER PLANT INSPECTOR, BMP, LIVER, TROP #### [facility] [address] [place] [address] Jermanefrain Arenasen PTTon 02-29-2020 aPTT Coag (Bld) [Time] 25.9 s Normal 22.3-36.2 Th [facility] Comment on above: Performed By: #### B POWER PLANT INSPECTOR, BMP, LIVER, TROP #### [facility] [address] [place], [place] [id number] Jerman Sri PTT NORMAL PLEASE NOTE: NORMAL RANGE CHANGE 08-01-2015 DUE TO REAGENT LOT CHANGE Normal The [facility] Comment on above: Performed By: #### B POWER PLANT INSPECTOR, BMP, LIVER, TROP #### [facility] [address] [address] Jerman Sri TROPONIN - Ion 02-29-2020 TROP 0.019 ng/mL Normal <=0.034 The [facility] Comment on above: Performed By: #### B POWER PLANT INSPECTOR, BMP, LIVER, TROP #### [facility] [address] [place] [address] Jerman Sri TROPONIN RANGE SEE BELOW Normal The [facility] Comment on above: Result Comment: <0.0 34 ng/ml NEGATIVE 0.034-0.119 INDETERMINATE 0.120 AMI CUT OFF Performed By: #### B POWER PLANT INSPECTOR, BMP, LIVER, TROP #### [facility] [address] [place] [address] Jerman Sri URINE MICROSCOPIC ONLYon BACTERIA LARGE Normal NONE SEEN The [facility] Comment on above: Performed By: #### Mavis DONOVAN UMICRO #### [facility] [address] [place] [address] Jerman Sri Bacteria identified Cx Nom (U) CX ALREADY ORDERED Normal The [facility] Comment on above: Result Comment: Prev iously reported as: INDICATED On 02/29/2020 20:03 By [email or web address] Performed By: #### Mavis DONOVAN UMICRO #### [facility] [address] [place] [address] Jerman Sri CAST NONE SEEN Normal NONE SEEN The [facility] Comment on above: Performed By: #### Mavis DONOVAN UMICRO #### [facility] [address] [place] [address] Jerman Sri Crystals LM Nom (Urine sed) NONE SEEN Normal NONE SEEN The [facility] Comment on above: Performed By: #### Mavis DONOVAN UMICRO #### [facility] [address] [place] [address] Jerman Sri Epithelial cells LM Ql (Urine sed) NONE SEEN Normal The [facility] Comment on above: Performed By: #### GHISLAINE EGANRO #### [facility] [address] [place], [place] [address] Jerman Sri MUCOUS TRACE Normal NONE SEEN The [facility] Comment on above: Performed By: #### YENIFER EGAN #### [facility] [address] [place], [place] [address] Jerman Sri RBC (U) [#/Vol] /uL Normal 0-[address] [facility] Comment on above: Performed By: #### E YENIFER DONOVAN #### [facility] [address] [place], [place] [address] Jerman Sri WBC (U) [#/Vol] /uL Normal NONE SEEN The [facility] Comment on above: Performed By: #### YENIFER EGAN #### [facility] [address] [place], [place] [address] Jerman Sri XR CHEST 1 Von 02-29-2020 XR CHEST [...] PELON MARROQUIN Date: 2020-02-29 19:49 Normal The [facility] Vital Signs Date Time Vital Sign Value Performing Clinician Facility 02-02-2025 11:34-0400 Body height 177.8 cm Vivian Gee PA-C [facility] 02-02-2025 11:34-040 Body mass index (BMI) [Ratio] 16.79 kg/m2 [facility] 02-02-2025 11:34-0400 Body weight 53.07 kg Vivian Gee PA-C Work Phone: [facility] [employer] [facility] 02-02-2025 11:34-0400 Diastolic blood pressure 62 mm[Hg] Vivian Gee PA-C Work Phone: [facility] [employer] [facility] 02-02-2025 11:34-0400 Heart rate 76 /min Vivian Gee PA-C Work Phone: [facility] [employer] [facility] 02-02-2025 11:34-0400 SaO2% (BldA) [Mass fraction] 98 % Vivian Gee PA-C Work Phone: [facility] [employer] [facility] 02-02-2025 11:34-0400 Systolic blood pressure 136 mm[Hg] Vivian Gee PA-C Work Phone: [facility] 01-16-2025 11:17-0400 Body mass index (BMI) [Ratio] 18.37 kg/m2 Randa René RADIATION ONCOLOGIST-NAME PLATE STAMPER Work Phone: [facility] 01-16-2025 11:17-0400 Body temperature 97.11 [degF] Randa Rodrigole RADIATION ONCOLOGIST-NAME PLATE STAMPER Work Phone: [facility] [employer] [facility] 01-16-2025 11:17-0400 Body weight 58.06 kg Randa René RADIATION ONCOLOGIST-NAME PLATE STAMPER Work Phone: [facility] [employer] [facility] 01-16-2025 11:17-0400 Diastolic blood pressure 58 mm[Hg] Randa René RADIATION ONCOLOGIST-NAME PLATE STAMPER Work Phone: [facility] 01-16-2025 11:17-0400 Heart rate 78 /min Randa Rodrigole RADIATION ONCOLOGIST-NAME PLATE STAMPER Work Phone: [facility] [employer] [facility] 01-16-2025 11:17-0400 Respiratory rate 20 /min Randa René RADIATION ONCOLOGIST-NAME PLATE STAMPER Work Phone: [facility] 01-16-2025 11:17-0400 SaO2% (BldA) [Mass fraction] 93 % Randa René RADIATION ONCOLOGIST-NAME PLATE STAMPER Work Phone: [facility] 01-16-2025 11:17-0400 Systolic blood pressure 122 mm[Hg] Randa Tate BRUNA Work Phone: [facility] 01-03-2025 14:33-0400 SaO2% (BldA) [Mass fraction] 299.0 % [facility] Comment on above: Performed By: #### PINR, CMP, HA1C, CBC, 76038-2 #### [facility] ([id number]) [address], [address] [place] [address] 01-03-2025 12:14-0400 SaO2% (BldA) [Mass fraction] 297.0 % [facility] Comment on above: Performed By: #### PINR, CMP, HA1C, CBC, 45903-6 #### [facility] ([id number]) [address] [place] [address] 01-03-2025 11:45-0400 SaO2% (BldA) [Mass fraction] 370.0 % [facility] Comment on above: Performed By: #### PINR, CMP, HA1C, CBC, 29643-6 #### [facility] ([id number]) [address], [address] [place] [address] 01-03-2025 11:15-0400 SaO2% (BldA) [Mass fraction] 371.0 % [facility] Comment on above: Performed By: #### HRTN #### [facility] ([facility]) [address] 01-03-2025 10:19-0400 SaO2% (BldA) [Mass fraction] 465.0 % [facility] Comment on above: Performed By: #### HRTN #### [facility] ([facility]) [address] [place] [address] [facility] 12-12-2024 11:00-0400 Body height 177.8 cm Ko Dietz MD Work Phone: [facility] 12-12-2024 11:00-0400 Body mass index (BMI) [Ratio] 17.94 kg/m2 Ko Dietz MD Work Phone: [facility] 12-12-2024 11:00-0400 Body temperature 97.9 [degF] Ko Dietz MD Work Phone: [facility] 12-12-2024 11:00-0400 Body weight 56.7 kg Ko Dietz MD Work Phone: [facility] 12-12-2024 11:00-0400 Diastolic blood pressure 70 mm[Hg] Ko Dietz MD Work Phone: [facility] 12-12-2024 11:00-0400 Heart rate 92 /min Ko Dietz MD Work Phone: [facility] 12-12-2024 11:00-0400 SaO2% (BldA) [Mass fraction] 93 % Ko Dietz MD Work Phone: [facility] 12-12-2024 11:00-0400 Systolic blood pressure 134 mm[Hg] Ko Dietz MD Work Phone: [facility] 11-14-2024 10:48-0400 Body height 180.3 cm Nixon Mici PA-C Work Phone: [facility] 11-14-2024 10:48-0400 Body mass index (BMI) [Ratio] 17.72 kg/m2 Nixon Mici PA-C Work Phone: [facility] 11-14-2024 10:48-0400 Body weight 57.61 kg Nixon Mici PA-C Work Phone: [facility] 11-14-2024 10:48-0400 Diastolic blood pressure 56 mm[Hg] Nixon Mici PA-C Work Phone: [facility] [employer] [facility] 11-14-2024 10:48-0400 Heart rate 62 /min Nixon Mici PA-C Work Phone: [facility] [employer] [facility] 11-14-2024 10:48-0400 Systolic blood pressure 110 mm[Hg] Nixon Mici PA-C Work Phone: [facility] 11-03-2024 09:58-0500 Body temperature 96.8 [degF] RENUKA Catalan MD Work Phone: [facility] 11-03-2024 09:58-0500 Body weight 57.5 kg RENUKA Catalan MD Work Phone: [facility] 11-03-2024 09:58-0500 Diastolic blood pressure 73 mm[Hg] RENUKA Catalan MD Work Phone: [facility] 11-03-2024 09:58-0500 Heart rate 81 /min RENUKA Catalan MD Work Phone: [facility] 11-03-2024 09:58-0500 Respiratory rate 18 /min RENUKA Catalan MD Work Phone: [facility] 11-03-2024 09:58-0500 SaO2% (BldA) [Mass fraction] 96 % RENUKA Catalan MD Work Phone: [facility] 11-03-2024 09:58-0500 Systolic blood pressure 109 mm[Hg] RENUKA Catalan MD Work Phone: [facility] 09-23-2024 12:34-0500 Body height 180.34 cm Booker Villeda DO Work Phone: [facility] 09-23-2024 12:34-0500 Body weight 55.79 kg Booker Villeda DO Work Phone: [facility] 06-21-2024 15:24-0400 Body height 180.3 cm Bebe Taylor MD Work Phone: [facility] 06-21-2024 15:24-0400 Body mass index (BMI) [Ratio] 18.31 kg/m2 Bebe Taylor MD Work Phone: [facility] 06-21-2024 15:24-0400 Body weight 59.51 kg Bebe Taylor MD Work Phone: [facility] 06-21-2024 15:24-0400 Diastolic blood pressure 52 mm[Hg] Bebe Taylor MD Work Phone: [facility] 06-21-2024 15:24-0400 Heart rate 62 /min Bebe Taylor MD Work Phone: [facility] 06-21-2024 15:24-0400 SaO2% (BldA) [Mass fraction] 97 % Bebe Taylor MD Work Phone: [facility] 06-21-2024 15:24-0400 Systolic blood pressure 88 mm[Hg] Bebe Taylor MD Work Phone: [facility] 05-26-2024 12:59-0400 Body height 180.34 cm [facility] 05-26-2024 12:59-0400 Diastolic blood pressure 69 mm[Hg] [facility] 05-26-2024 12:59-0400 Heart rate 75 /min [facility] 05-26-2024 12:59-0400 Respiratory rate 18 /min [facility] 05-26-2024 12:59-0400 SaO2% (BldA) [Mass fraction] 96 % [facility] 05-26-2024 12:59-0400 Systolic blood pressure 105 mm[Hg] [facility] 05-13-2024 10:41-0400 Body height 180.34 cm MERCY Maza Work Phone: [facility] 05-13-2024 10:41-0400 Body mass index (BMI) [Ratio] 18.3 kg/m2 MERCY Maza Work Phone: [facility] 05-13-2024 10:41-0400 Body weight 59.87 kg RADIATION ONCOLOGIST Isabel Scally Work Phone: [facility] 05-13-2024 10:41-0400 Diastolic blood pressure 60 mm[Hg] RADIATION ONCOLOGIST Isabel Scally Work Phone: [facility] 05-13-2024 10:41-0400 Heart rate 57 /min RADIATION ONCOLOGIST Isabel Scally Work Phone: [facility] 05-13-2024 10:41-0400 SaO2% (BldA) [Mass fraction] 96 % RADIATION ONCOLOGIST Isabel Scally Work Phone: [facility] 05-13-2024 10:41-0400 Systolic blood pressure 102 mm[Hg] RADIATION ONCOLOGIST Isabel Scally Work Phone: [facility] 04-15-2024 10:08-0400 Body height 180.34 cm RADIATION ONCOLOGIST Isabel Scally Work Phone: [facility] 04-15-2024 10:08-0400 Body mass index (BMI) [Ratio] 18.2 kg/m2 RADIATION ONCOLOGIST Isabel Scally Work Phone: [facility] 04-15-2024 10:08-0400 Body weight 59.42 kg RADIATION ONCOLOGIST Isabel Scally Work Phone: [facility] 04-15-2024 10:08-0400 Diastolic blood pressure 52 mm[Hg] RADIATION ONCOLOGIST Isabel Scally Work Phone: [facility] 04-15-2024 10:08-0400 Heart rate 74 /min RADIATION ONCOLOGIST Isabel Scally Work Phone: [facility] 04-15-2024 10:08-0400 SaO2% (BldA) [Mass fraction] 94 % RADIATION ONCOLOGIST Isabel Scally Work Phone: [facility] 04-15-2024 10:08-0400 Systolic blood pressure 102 mm[Hg] MERCY Maza Work Phone: [facility] 03-21-2024 10:45-0400 Body height 180.3 cm Bebe Taylor MD Work Phone: [facility] 03-21-2024 10:45-0400 Body mass index (BMI) [Ratio] 19.08 kg/m2 Bebe Taylor MD Work Phone: [facility] 03-21-2024 10:45-0400 Body weight 62.05 kg Bebe Taylor MD Work Phone: [facility] 03-21-2024 10:45-0400 Diastolic blood pressure 56 mm[Hg] Bebe Taylor MD Work Phone: [facility] [employer] [facility] 03-21-2024 10:45-0400 Heart rate 50 /min Bebe Taylor MD Work Phone: [facility] 03-21-2024 10:45-0400 SaO2% (BldA) [Mass fraction] 97 % Bebe Taylor MD Work Phone: [facility] 03-21-2024 10:45-0400 Systolic blood pressure 88 mm[Hg] Bebe Taylor MD Work Phone: [facility] 02-17-2024 11:20-0400 Body height 180.34 cm DO Booker Villeda Work Phone: [facility] 02-17-2024 11:20-0400 Body mass index (BMI) [Ratio] 19.6 kg/m2 DO Booker Villeda Work Phone: [facility] 02-17-2024 11:20-0400 Body weight 63.95 kg DO Booker Villeda Work Phone: [facility] 02-17-2024 11:20-0400 Diastolic blood pressure 64 mm[Hg] DO Booker Villeda Work Phone: [facility] 02-17-2024 11:20-0400 Heart rate 84 /min DO Booker Villeda Work Phone: [facility] 02-17-2024 11:20-0400 Respiratory rate 18 /min DO Booker Villeda Work Phone: [facility] 02-17-2024 11:20-0400 SaO2% (BldA) [Mass fraction] 96 % DO Booker Villeda Work Phone: [facility] 02-17-2024 11:20-0400 Systolic blood pressure 98 mm[Hg] DO Booker Villeda Work Phone: [facility] 02-16-2024 13:57-0400 Blood Pressure Location MARJ NHI [facility] 02-16-2024 13:57-0400 Diastolic blood pressure 68 mm[Hg] MARJ NHI [facility] 02-16-2024 13:57-0400 Heart rate 80 /min MARJ NHI [facility] 02-16-2024 13:57-0400 Respiratory rate 16 /min MARJ NHI [facility] 02-16-2024 13:57-0400 Systolic blood pressure 127 mm[Hg] MARJ NHI [facility] 01-27-2024 10:29-0400 Body height 180.34 cm DO Booker Villeda Work Phone: [facility] 01-27-2024 10:29-0400 Body mass index (BMI) [Ratio] 20.5 kg/m2 DO Booker Villeda Work Phone: [facility] 01-27-2024 10:29-0400 Body weight 66.67 kg DO Booker Villeda Work Phone: [facility] 01-27-2024 10:29-0400 Diastolic blood pressure 62 mm[Hg] DO Booker Villeda Work Phone: [facility] 01-27-2024 10:29-0400 Heart rate 86 /min DO Booker Petersonley Work Phone: [facility] 01-27-2024 10:29-0400 Respiratory rate 18 /min DO Booker Petersonley Work Phone: [facility] 01-27-2024 10:29-0400 SaO2% (BldA) [Mass fraction] 96 % DO Booker Petersonley Work Phone: [facility] 01-27-2024 10:29-0400 Systolic blood pressure 118 mm[Hg] DO Booker Villeda Work Phone: [facility] 01-14-2024 10:59-0400 Body height 180.34 cm DO Booker Villeda Work Phone: [facility] 01-14-2024 10:59-0400 Body mass index (BMI) [Ratio] 20.7 kg/m2 DO Booker Petersonley Work Phone: [facility] 01-14-2024 10:59-0400 Body weight 67.58 kg DO Booker Villeda Work Phone: [facility] 01-14-2024 10:59-0400 Diastolic blood pressure 60 mm[Hg] DO Booker Villeda Work Phone: [facility] 01-14-2024 10:59-0400 Heart rate 72 /min DO Booker Villeda Work Phone: [facility] 01-14-2024 10:59-0400 SaO2% (BldA) [Mass fraction] 97 % DO Booker Villeda Work Phone: [facility] 01-14-2024 10:59-0400 Systolic blood pressure 108 mm[Hg] DO Booker Villeda Work Phone: [facility] 01-09-2024 11:41-0400 Diastolic blood pressure 74 mm[Hg] DO Booker Villeda Work Phone: [facility] 01-09-2024 11:41-0400 Heart rate 80 /min DO Booker Villeda Work Phone: [facility] 01-09-2024 11:41-0400 Respiratory rate 18 /min DO Booker Villeda Work Phone: [facility] 01-09-2024 11:41-0400 SaO2% (BldA) [Mass fraction] 96 % DO Booker Villeda Work Phone: [facility] 01-09-2024 11:41-0400 Systolic blood pressure 115 mm[Hg] DO Booker Villeda Work Phone: [facility] 01-09-2024 08:00-0400 Body temperature 98.6 [degF] DO Booker Villeda Work Phone: [facility] 01-09-2024 05:17-0400 Body weight 68.6 kg DO Booker Villeda Work Phone: [facility] 01-06-2024 16:31-0400 Body height 180.34 cm DO Booker Villeda Work Phone: [facility] 01-05-2024 20:02-0400 Diastolic blood pressure 79 mm[Hg] DO Booker Villeda Work Phone: [facility] 01-05-2024 20:02-0400 Heart rate 110 /min DO Booker Villeda Work Phone: [facility] 01-05-2024 20:02-0400 Respiratory rate 19 /min DO Booker Villeda Work Phone: [facility] 01-05-2024 20:02-0400 SaO2% (BldA) [Mass fraction] 94 % DO Booker Villeda Work Phone: [facility] 01-05-2024 20:02-0400 Systolic blood pressure 154 mm[Hg] DO Booker Villeda Work Phone: [facility] 01-05-2024 17:17-0400 Body temperature 98.7 [degF] DO Booker Villeda Work Phone: [facility] 01-05-2024 14:44-0400 Body height 180.34 cm DO Booker Villeda Work Phone: [facility] 01-05-2024 14:44-0400 Body weight 68.03 kg DO Booker Villeda Work Phone: [facility] 11-30-2023 10:16-0400 Blood Pressure Location Zeferino CHARLES [facility] 11-30-2023 10:16-0400 Body temperature 98.6 [degF] Zeferinosneha CHARLES [facility] 11-30-2023 10:16-0400 Diastolic blood pressure 84 mm[Hg] Zeferino CHARLES [facility] 11-30-2023 10:16-0400 Heart rate 62 /min Zeferino CHARLES [facility] 11-30-2023 10:16-0400 Respiratory rate 16 /min Zeferino CHARLES [facility] 11-30-2023 10:16-0400 Systolic blood pressure 135 mm[Hg] Zeferino CHARLES [facility] 11-13-2023 10:35-0500 Body height 174.63 cm DO Booker Villeda Work Phone: [facility] 11-13-2023 10:35-0500 Body mass index (BMI) [Ratio] 23.8 kg/m2 DO Booker Villeda Work Phone: [facility] 11-13-2023 10:35-0500 Body weight 72.57 kg DO Booker Villeda Work Phone: [facility] 11-13-2023 10:35-0500 Diastolic blood pressure 64 mm[Hg] DO Booker Villeda Work Phone: [facility] 11-13-2023 10:35-0500 Heart rate 74 /min DO Booker Villeda Work Phone: [facility] 11-13-2023 10:35-0500 Respiratory rate 18 /min DO Booker Villeda Work Phone: [facility] 11-13-2023 10:35-0500 SaO2% (BldA) [Mass fraction] 95 % DO Booker Villeda Work Phone: [facility] 11-13-2023 10:35-0500 Systolic blood pressure 110 mm[Hg] DO Booker Villeda Work Phone: [facility] 11-05-2023 10:47-0500 Body temperature 96.69 [degF] RENUKA Catalan MD Work Phone: [facility] 11-05-2023 10:47-0500 Body weight 73.3 kg RENUKA Catalan MD Work Phone: [facility] 11-05-2023 10:47-0500 Diastolic blood pressure 91 mm[Hg] RENUKA Catalan MD Work Phone: [facility] 11-05-2023 10:47-0500 Heart rate 98 /min RENUKA Catalan MD Work Phone: [facility] 11-05-2023 10:47-0500 Respiratory rate 18 /min RENUKA Catalan MD Work Phone: [facility] 11-05-2023 10:47-0500 SaO2% (BldA) [Mass fraction] 93 % RENUKA Catalan MD Work Phone: [facility] 11-05-2023 10:47-0500 Systolic blood pressure 148 mm[Hg] RENUKA Catalan MD Work Phone: [facility] 05-14-2023 10:30-0400 Body height 174.63 cm Booker Villeda Other [facility] Other 05-14-2023 10:30-0400 Body mass index (BMI) [Ratio] 23.93 kg/m2 Booker Villeda Other [facility] Other 05-14-2023 10:30-0400 Body weight 72.98 kg Booker Villeda Other [facility] Other 05-14-2023 10:30-0400 Diastolic blood pressure 82 mm[Hg] Booker Villeda Other [facility] Other 05-14-2023 10:30-0400 Respiratory rate 18 /min Booker Villeda Other [facility] Other 05-14-2023 10:30-0400 SaO2% (BldA) [Mass fraction] 94 % Booker Villeda Other [facility] Other 05-14-2023 10:30-0400 Systolic blood pressure 130 mm[Hg] Booker Villeda Other [facility] Other 11-11-2022 10:30-0500 Body height 174.63 cm Booker Villeda Other [facility] Other 11-11-2022 10:30-0500 Body mass index (BMI) [Ratio] 23.35 kg/m2 Booker Villeda Other [facility] Other 11-11-2022 10:30-0500 Body weight 71.22 kg Booker Villeda Other [facility] Other 11-11-2022 10:30-0500 Diastolic blood pressure 80 mm[Hg] Booker Villeda Other [facility] Other 11-11-2022 10:30-0500 Respiratory rate 18 /min Booker Villeda Other [facility] Other 11-11-2022 10:30-0500 SaO2% (BldA) [Mass fraction] 95 % Booker Villeda Other [facility] Other 11-11-2022 10:30-0500 Systolic blood pressure 132 mm[Hg] Booker Villeda Other [facility] Other 11-06-2022 09:48-0500 Body temperature 97.7 [degF] RENUKA Catalan MD Work Phone: [facility] 11-06-2022 09:48-0500 Body weight 72.58 kg RENUKA Catalan MD Work Phone: [facility] 11-06-2022 09:48-0500 Diastolic blood pressure 87 mm[Hg] RENUKA Catalan MD Work Phone: [facility] 11-06-2022 09:48-0500 Heart rate 88 /min RENUKA Catalan MD Work Phone: [facility] 11-06-2022 09:48-0500 Respiratory rate 18 /min RENUKA Catalan MD Work Phone: [facility] 11-06-2022 09:48-0500 SaO2% (BldA) [Mass fraction] 95 % NA Alli BRAMBILA Work Phone: [facility] 11-06-2022 09:48-0500 Systolic blood pressure 145 mm[Hg] NA Alli BRAMBILA Work Phone: [facility] 07-14-2022 09:40-0500 Blood Pressure Location Phuc RICE [facility] 07-14-2022 09:40-0500 Diastolic blood pressure 88 mm[Hg] Phuc RICE [facility] 07-14-2022 09:40-0500 Heart rate 82 /min Phuc RICE [facility] 07-14-2022 09:40-0500 Systolic blood pressure 132 mm[Hg] Phuc RICE [facility] 04-07-2022 13:13-0400 Blood Pressure Location Phuc RICE [facility] 04-07-2022 13:13-0400 Diastolic blood pressure 83 mm[Hg] Phuc RICE [facility] 04-07-2022 13:13-0400 Heart rate 86 /min Phuc RICE [facility] 04-07-2022 13:13-0400 Systolic blood pressure 117 mm[Hg] Phuc RICE [facility] 11-06-2021 11:30-0500 Body height 174.63 cm Booker Villeda Other [facility] Other 11-06-2021 11:30-0500 Body mass index (BMI) [Ratio] 23.95 kg/m2 Booker Villeda Other [facility] Other 11-06-2021 11:30-0500 Body weight 73.03 kg Booker Villeda Other [facility] Other 11-06-2021 11:30-0500 Diastolic blood pressure 89 mm[Hg] Booker Villeda Other [facility] Other 11-06-2021 11:30-0500 Respiratory rate 18 /min Booker Villeda Other [facility] Other 11-06-2021 11:30-0500 SaO2% (BldA) [Mass fraction] 97 % Booker Villeda Other [facility] Other 11-06-2021 11:30-0500 Systolic blood pressure 139 mm[Hg] Booker Villeda Other [facility] Other 06-21-2021 10:00-0400 Body height 174.63 cm Booker Villeda Other [facility] Other 06-21-2021 10:00-0400 Body mass index (BMI) [Ratio] 21.57 kg/m2 Booker Villeda Other [facility] Other 06-21-2021 10:00-0400 Body temperature 98.5 [degF] Booker Villeda Other [facility] Other 06-21-2021 10:00-0400 Body weight 65.77 kg Booker Villeda Other [facility] Other 06-21-2021 10:00-0400 Diastolic blood pressure 80 mm[Hg] Booker Villeda Other [facility] Other 06-21-2021 10:00-0400 Respiratory rate 16 /min Booker Villeda Other [facility] Other 06-21-2021 10:00-0400 SaO2% (BldA) [Mass fraction] 96 % Booker Villeda Other [facility] Other 06-21-2021 10:00-0400 Systolic blood pressure 126 mm[Hg] Booker Villeda Other [facility] Other Encounters Encounter Date Encounter Type Care Provider Facility Start: 12-05-2025 ambulatory MARJ Rutledge ty:[facility] Start: 02-20-2025 End: 02-20-2025 Follow-up encounter [facility] 1 [facility] - Pharmacy Medication Management Comment on above: 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); H/O aortic valve replacement--1966 ball in cage Start: 02-20-2025 End: 02-20-2025 ambulatory [facility]ICATION MANAGEMENT [facility] Start: 02-16-2025 End: 02-16-2025 ambulatory Booker Villeda Facility:[facility] Start: 02-14-2025 End: 02-14-2025 Follow-up encounter [facility] 1 [facility] - Pharmacy Medication Management Comment on above: jail (current) use of anticoagulants [Z79.01] (Primary Dx); H/O aortic valve replacement--1966 ball in cage Start: 02-14-2025 End: 02-14-2025 ambulatory BOOKER VILLEDA [facility] Start: 02-09-2025 End: 02-09-2025 Edwige Cage RN [facility] Cardiology Comment on above: Med Refill Start: 02-08-2025 End: 02-08-2025 Telephone encounter Mary Kay Bro MA [facility] - Pharmacy Medication Management Start: 02-02-2025 End: 02-02-2025 Office outpatient visit 25 minutes Vivian Gee PA-C Work Phone: [facility] Comment on above: S/P aortic aneurysm repair (Primary Dx); Aneurysm of ascending aorta without rupture; H/O aortic valve replacement--1966 ball in cage; Chronic systolic heart failure ([facility]); Postoperative atrial fibrillation ([facility]) Start: 02-02-2025 End: 02-02-2025 ambulatory VIVIAN GEE [facility] Start: 01-31-2025 End: 01-31-2025 Follow-up encounter [facility] Medication Management Work Phone: [facility] Medication Management Comment on above: jail (current) use of anticoagulants [Z79.01] (Primary Dx); H/O aortic valve replacement--1966 ball in cage Start: 01-25-2025 End: 01-25-2025 Follow-up encounter [facility] Medication Management Work Phone: [facility] Medication Management Comment on above: jail (current) use of anticoagulants [Z79.01] (Primary Dx); H/O aortic valve replacement--1966 ball in cage Start: 01-17-2025 End: 01-17-2025 Follow-up encounter Murtaza Daniel [facility] Work Phone: [facility] Medication Management Comment on above: jail (current) use of anticoagulants [Z79.01] (Primary Dx); H/O aortic valve replacement--1966 ball in cage Start: 01-16-2025 End: 01-16-2025 ambulatory POLO LU [facility] Start: 01-16-2025 End: 01-16-2025 ambulatory BOOKER VILLEDA [facility] Start: 01-16-2025 End: 01-16-2025 Postop follow up visit related to original px Randa Tate RADIATION ONCOLOGIST-NAME PLATE STAMPER Work Phone: [facility] Physicians Cardiothoracic Surgeons - [facility] Comment on above: Visit for wound chec k (Primary Dx); S/P aortic aneurysm repair Start: 01-11-2025 End: 01-11-2025 Follow-up encounter [facility] Medication Management Work Phone: [facility] Medication Management Comment on above: 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 Start: 01-10-2025 End: 01-10-2025 Follow-up encounter Murtaza Daniel [facility] Work Phone: [facility] Medication Management Comment on above: jail (current) use of anticoagulants [Z79.01] (Primary Dx); H/O aortic valve replacement--1966 ball in cage Start: 01-10-2025 End: 01-10-2025 ambulatory [facility] Start: 01-09-2025 End: 01-09-2025 Follow-up encounter Aleja Larsen [facility] Work Phone: [facility] Pharmacy Medication Management Comment on above: 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); H/O aortic valve replacement--1966 ball in cage Start: 01-05-2025 End: 01-05-2025 Telephone encounter Anton Cerda RN [facility] Arjun jose Comment on above: Hypotension Start: 01-03-2025 ambulatory KO Haddad [facility] Start: 01-03-2025 End: 01-09-2025 Evaluation and management of inpatient DELTA Catie [facility] Start: 12-26-2024 End: 12-26-2024 Orders Only Aniya Mckinney RN [facility] - [facility] Comment on above: Aneurysm of ascendin g aorta without rupture (Primary Dx) Start: 12-23-2024 End: 12-23-2024 [facility] Pharmacy Medication Management Comment on above: 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); H/O aortic valve replacement--1966 ball in cage Start: 12-23-2024 End: 12-23-2024 [facility] Start: 12-16-2024 End: 12-16-2024 Follow-up encounter [facility] 2 [facility] - Pharmacy Medication Management Comment on above: 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); H/O aortic valve replacement--1966 ball in cage Start: 12-16-2024 End: 12-16-2024 ambulatory [facility]NAG[facility] Start: 12-12-2024 End: 12-12-2024 Office outpatient visit 40 minutes Ko Dietz MD Work Phone: [facility] - [facility] Comment on above: Aneurysm of ascendin g aorta without rupture Start: 12-12-2024 End: 12-12-2024 Orders Only Belen Brary RN [facility] Surgeons - [facility] Comment on above: Bilateral carotid br uits (Primary Dx) Start: 12-09-2024 End: 12-09-2024 Documentation procedure Torri Bain RN [facility] - [facility] Start: 12-05-2024 End: 12-05-2024 ambulatory MARJ SOMERS Facility:[facility] Start: 11-29-2024 End: 11-29-2024 Orders Only Nixon Guzman PA-C Work Phone: [facility] Comment on above: Aneurysm of ascendin g aorta without rupture (CMS-HCC) (Primary Dx) Start: 11-22-2024 End: 11-22-2024 ambulatory [facility] Start: 11-14-2024 End: 11-14-2024 Office outpatient visit 25 minutes Christine KUMARNAME PLATE STAMPER Work Phone: [facility] Cardiology Comment on above: Chronic systolic hea rt failure (CMS-HCC) (Primary Dx); History of mechanical aortic valve replacement; Aortic root dilation (CMS-HCC); H/O aortic valve replacement--1966 ball in cage Start: 11-14-2024 End: 11-14-2024 ambulatory [facility] Start: 11-11-2024 End: 11-11-2024 Telephone encounter Marj Paul [facility] Phys[facility] s Cardiology Start: 11-11-2024 End: 11-11-2024 Follow-up encounter [facility] 1 [facility] - Pharmacy Medication Management Comment on above: jail (current) use of anticoagulants [Z79.01] (Primary Dx); H/O aortic valve replacement--1966 ball in cage Start: 11-11-2024 End: 11-11-2024 ambulatory [facility] MEDICATION MANAGEMENT [facility] Start: 11-07-2024 Non-patient / Non-visit Booker Villeda DO Work Phone: [facility] Work Phone: Start: 11-07-2024 End: 11-07-2024 ambulatory ISABEL LINK [facility] Start: 11-03-2024 End: 11-03-2024 ambulatory BOOKER VILLEDA Facility:[facility] Start: 11-03-2024 End: 11-03-2024 Office outpatient visit 10 minutes Cande Catalan MD Work Phone: Radiation Oncology Comment on above: Prostate cancer (HCC ) (Primary Dx) Start: 10-26-2024 Non-patient / Non-visit Booker Villeda DO Work Phone: [facility] Work Phone: Start: 10-26-2024 End: 10-26-2024 ambulatory BOOKER VILLEDA Facility:[facility] Start: 10-07-2024 End: 10-07-2024 Follow-up encounter [facility] 1 [facility] Medication Therapy Management Comment on above: jail (current) use of anticoagulants [Z79.01] (Primary Dx); H/O aortic valve replacement--1966 ball in cage Start: 10-07-2024 End: 10-07-2024 ambulatory [facility]NAG[facility] Start: 09-23-2024 End: 09-23-2024 ambulatory Booker Villeda DO Work Phone: [facility] Work Phone: Start: 09-23-2024 End: 09-23-2024 Departed Referred Booker Villeda DO Work Phone: [facility] Work Phone: Start: 09-16-2024 End: 09-19-2024 Telephone encounter Mary Kay Bro MA [facility] Medication Therapy Management Start: 09-12-2024 End: 09-12-2024 Follow-up encounter [facility] 1 [facility] Medication Therapy Management Comment on above: jail (current) use of anticoagulants [Z79.01] (Primary Dx); H/O aortic valve replacement--1966 ball in cage Med Refill Start: 09-12-2024 End: 09-12-2024 ambulatory [facility]ICATION [facility]NAG[facility] Start: 08-19-2024 End: 08-19-2024 ambulatory Booker Villeda Facility:[facility] Start: 08-09-2024 End: 08-09-2024 Follow-up encounter eileen [facility] 1 [facility] Medication Therapy Management Comment on above: jail (current) use of anticoagulants [Z79.01] (Primary Dx); H/O aortic valve replacement--1966 ball in cage Start: 08-09-2024 End: 08-09-2024 ambulatory JOBST SERVICE [facility] Start: 07-27-2024 End: 07-27-2024 Telephone encounter [employer] Work Phone: [facility] Medication Therapy Management Start: 07-26-2024 End: 07-26-2024 Follow-up encounter [facility] 1 [facility] Medication Therapy Management Comment on above: 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); H/O aortic valve replacement--1966 ball in cage Start: 07-26-2024 End: 07-26-2024 ambulatory JOBST SERVICE [facility] Start: 07-12-2024 End: 07-12-2024 Telephone encounter Mary Kay Bro MA [facility] Medication Therapy Management Start: 06-28-2024 End: 06-28-2024 Follow-up encounter [facility] 1 [facility] Medication Therapy Management Comment on above: 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); H/O aortic valve replacement--1966 ball in cage Start: 06-28-2024 End: 06-28-2024 ambulatory JOBS SERVICE [facility] Start: 06-22-2024 End: 06-22-2024 Telephone encounter [employer] Work Phone: [facility] Medication Therapy Management Start: 06-21-2024 End: 06-21-2024 Office outpatient visit 15 minutes Bebe Taylor MD Work Phone: [facility] Comment on above: H/O aortic valve rep lacement--1966 ball in cage (Primary Dx) Start: 06-21-2024 End: 06-21-2024 ambulatory BEBE TAYLOR [facility] Start: 06-20-2024 End: 06-20-2024 Telephone encounter Marj Paul [facility] Start: 06-16-2024 End: 06-16-2024 Refill Taniya Walton RN [facility] Cardiology Comment on above: Med Refill Start: 06-07-2024 End: 06-07-2024 ambulatory Zeferino CHARLES Facility:[facility] Start: 06-06-2024 End: 06-06-2024 Follow-up encounter [facility] 1 [facility] Medication Therapy Management Comment on above: jail (current) use of anticoagulants [Z79.01] (Primary Dx); H/O aortic valve replacement--1966 ball in cage Start: 06-06-2024 End: 06-06-2024 ambulatory [facility] Start: 05-27-2024 End: 05-27-2024 ambulatory [facility] Start: 05-27-2024 End: 05-27-2024 Follow-up encounter 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); H/O aortic valve replacement--1966 ball in cage Start: 05-13-2024 End: 05-13-2024 ambulatory MERCY Maza Work Phone: [facility] Work Phone: Start: 05-13-2024 End: 05-13-2024 Patient encounter procedure MERCY Maza Work Phone: [facility] Daniela Work Phone: Start: 05-11-2024 End: 05-11-2024 [facility] Start: 05-11-2024 End: 05-11-2024 Follow-up encounter [facility] 1 [facility] Medication Therapy Management Comment on above: 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); H/O aortic valve replacement--1966 ball in cage Start: 04-22-2024 End: 04-22-2024 [facility] Start: 04-22-2024 End: 04-22-2024 Follow-up encounter [facility] 2 [facility] Medication Therapy Management Comment on above: jail (current) use of anticoagulants [Z79.01] (Primary Dx); H/O aortic valve replacement--1966 ball in cage Start: 04-15-2024 End: 04-15-2024 ambulatory RADIATION ONCOLOGIST Isabel Maza Work Phone: [facility] Work Phone: Start: 04-15-2024 End: 04-15-2024 Patient encounter procedure RADIATION ONCOLOGISTLeighton Maza Work Phone: [facility] Daniela Work Phone: Start: 03-25-2024 End: 03-25-2024 Follow-up encounter [facility] 2 [facility] Medication Therapy Management Comment on above: jail (current) use of anticoagulants [Z79.01] (Primary Dx); H/O aortic valve replacement--1966 ball in cage Start: 03-25-2024 End: 03-25-2024 [facility] Start: 03-21-2024 End: 03-21-2024 Office outpatient visit 25 minutes Bebe Taylor MD Work Phone: [facility] Physicians Cardiology Comment on above: H/O mechanical aorti c valve replacement (Primary Dx); H/O aortic valve replacement Start: 03-21-2024 End: 03-21-2024 ambulatory BEBE Freitas WALDEMAR [facility] Start: 03-18-2024 End: 03-18-2024 Telephone encounter Marj [facility] Start: 03-04-2024 End: 06-01-2024 Pre-admission assessment Zeferino CHARLES [facility] Start: 03-03-2024 ambulatory BOOKER VILLEDA [facility] Start: 02-26-2024 End: 02-26-2024 ambulatory JOBST SERVICE [facility] Start: 02-17-2024 End: 02-17-2024 ambulatory DO Booker Villeda Work Phone: [facility] Work Phone: Start: 02-17-2024 End: 02-17-2024 Departed Referred DO Booker Villeda Work Phone: [facility] [place] Work Phone: Start: 02-17-2024 End: 02-17-2024 ambulatory DO Booker Villeda Work Phone: [facility] Work Phone: Start: 02-17-2024 End: 02-17-2024 Patient encounter procedure DO Booker Villeda Work Phone: [facility] Work Phone: Start: 02-16-2024 End: 02-16-2024 ambulatory MARJ SOMERS Facility:[facility] Start: 02-16-2024 End: 02-16-2024 Patient encounter procedure MARJ SOMERS [facility] Start: 02-12-2024 End: 02-12-2024 Follow-up encounter [facility] 2 [facility] Medication Therapy Management Comment on above: 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); H/O mechanical aortic valve replacement Start: 01-29-2024 End: 01-29-2024 Follow-up encounter [facility] 2 [facility] Medication Therapy Management Comment on above: jail (current) use of anticoagulants [Z79.01] (Primary Dx); H/O mechanical aortic valve replacement Start: 01-27-2024 End: 01-27-2024 ambulatory DO Booker Villeda Work Phone: [facility] Work Phone: Start: 01-27-2024 End: 01-27-2024 Patient encounter procedure DO Booker Villeda Work Phone: [facility] Work Phone: Start: 01-22-2024 End: 01-22-2024 Follow-up encounter [facility] 2 [facility] Medication Therapy Management 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: 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); H/O mechanical aortic valve replacement Start: 01-14-2024 End: 01-14-2024 Follow-up encounter [facility] 1 [facility] Medication Therapy Management Comment on above: 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); H/O mechanical aortic valve replacement Start: 01-14-2024 End: 01-14-2024 ambulatory DO Booker Villeda Work Phone: [facility] Work Phone: Start: 01-14-2024 End: 01-14-2024 Patient encounter procedure DO Booker Villeda Work Phone: [facility] [place] Work Phone: Start: 01-12-2024 End: 01-12-2024 Follow-up encounter Murtaza Daniel [facility] Work Phone: [facility] Medication Therapy Management 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 [employer] Medication Therapy Management Start: 01-06-2024 End: 01-09-2024 Non-patient / Non-visit DO Booker Villeda Work Phone: [facility] Work Phone: Start: 01-05-2024 End: 01-09-2024 Non-patient / Non-visit DO Booker Villeda Work Phone: [facility] Work Phone: Start: 01-05-2024 Evaluation and management of inpatient DO Booker Villeda Work Phone: [facility] Work Phone: Start: 01-05-2024 observation encounter DO Lori Villeda Work Phone: [facility] Work Phone: Start: 11-30-2023 End: 11-30-2023 Patient encounter procedure Zeferino CHARLES [facility] Start: 11-26-2023 End: 11-26-2023 Follow-up encounter Christina Sherman MD Work Phone: [facility] Medication Therapy Management Comment on above: jail (current) use of anticoagulants [Z79.01] (Primary Dx); H/O mechanical aortic valve replacement Start: 11-13-2023 End: 11-13-2023 Patient encounter procedure DO Booker Villeda Work Phone: [facility] Daniela Work Phone: Start: 11-05-2023 End: 11-05-2023 Patient encounter procedure G Wallace Catalan MD Work Phone: Radiation Oncology Comment on above: Prostate cancer (HCC ) (Primary Dx) Start: 10-22-2023 Non-patient / Non-visit DO Kj Villeda Work Phone: [facility] [employer] Work Phone: Start: 10-15-2023 End: 10-15-2023 Follow-up encounter Christina Sherman MD Work Phone: [facility] Medication Therapy Management 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 Other Start: 06-29-2023 Telephone encounter Booker Castellon [facility] Daniela Start: 06-10-2023 End: 06-10-2023 ambulatory Booker Villeda Other [employer] Other Start: 06-10-2023 Telephone encounter Booker NEWTON [facility] [place] Start: 05-14-2023 End: 05-14-2023 ambulatory Booker Villeda Other [employer] Other Start: 05-14-2023 Office outpatient vi sit 15 minutes Booker MONTAÑO [facility] [place] Start: 05-01-2023 End: 05-01-2023 ambulatory Booker Villeda Other [employer] Other Start: 05-01-2023 Telephone encounter Booker NEWTON [facility] [place] Start: 03-02-2023 End: 03-02-2023 ambulatory Booker Villeda Other [employer] Other Start: 03-02-2023 Telephone encounter Booker NEWTON [facility] [place] Start: 01-30-2023 End: 01-30-2023 ambulatory Booker Villeda Other [employer] Other Start: 01-30-2023 Telephone encounter Booker NEWTON [facility] [place] Start: 12-31-2022 End: 12-31-2022 ambulatory Booker Villeda Other [employer] Other Start: 12-31-2022 Telephone encounter Booker NEWTON [facility] [place] Start: 11-17-2022 End: 11-17-2022 Patient encounter procedure Phuc FORBES [facility] Start: 11-11-2022 End: 11-11-2022 ambulatory Booker Villead Other [employer] Other Start: 03-07-2023 Office outpatient vi sit 15 minutes Booker MONTAÑO [facility] Daniela Start: 11-06-2022 End: 11-06-2022 Patient encounter procedure Cande Catalan MD Work Phone: Radiation Oncology Comment on above: Prostate cancer (HCC ) (Primary Dx) Start: 10-27-2022 End: 10-27-2022 ambulatory Booker Villeda Other [employer] Other Start: 10-27-2022 Telephone encounter Booker NEWTON G [facility] Daniela Start: 09-23-2022 End: 09-23-2022 ambulatory Booker Villeda Other [employer] Other Start: 09-23-2022 Telephone encounter Booker Castellon [facility] Daniela Start: 07-14-2022 End: 07-14-2022 Patient encounter procedure Phuc FORBES [facility] Start: 04-07-2022 End: 04-07-2022 Patient encounter procedure Phuc FORBES [facility] Start: 03-25-2022 End: 03-25-2022 ambulatory Booker Villeda Other [employer] Other Start: 03-25-2022 Telephone encounter Booker Castellon [facility] Daniela Start: 01-23-2022 End: 01-23-2022 ambulatory Booker Villeda Other [employer] Other Start: 01-23-2022 Telephone encounter Booker Castellon [facility] Daniela Start: 11-06-2021 End: 11-06-2021 ambulatory Booker Villeda Other [employer] Other Start: 03-02-2022 Office outpatient vi sit 15 minutes Booker Villeda [facility] [place] Start: 09-26-2021 End: 09-26-2021 ambulatory Booker Villeda Other [employer] Other Start: 09-26-2021 Telephone encounter Booker Petersonley [facility] [place] Start: 07-29-2021 End: 07-29-2021 ambulatory Booker Villeda Other [employer] Other Start: 07-29-2021 Telephone encounter Booker Castellon [facility] [place] Start: 07-16-2021 End: 07-16-2021 ambulatory Booker Villeda Other [employer] Other Start: 07-16-2021 Nursing evaluation o f patient and report Booker Villeda [facility] [place] Start: 07-01-2021 Telephone encounter Booker Villeda [facility] [place] Start: 06-25-2021 Telephone encounter Booker Villeda [facility] [place] Start: 06-21-2021 Office outpatient vi sit 15 minutes Booker Villeda [facility] [place] Start: 01-29-2021 End: 01-30-[address] DOCTOR FRANCOIS Facility:[facility] Start: 01-07-2021 End: 01-07-2021 ambulatory IMER FRIED Facility:[facility] Start: 11-27-2020 End: 11-28-[address] FORD LISTED REQUEST Facility:[facility]1 Start: 11-05-2020 End: 11-06-[address] DOCTOR FRANCOIS Facility:[facility] Start: 05-04-2020 End: 05-04-[address] DOCTOR FRANCOIS Facility:[facility] Start: 02-29-2020 End: 03-01-[address] DOCTOR FRANCOIS Facility:[facility]1 Procedures Date Procedure Procedure Detail Performing Clinician Start: 02-20-2025 Prothrombin time [facility] Med[facility] Work Phone: Start: 02-14-2025 Prothrombin time [facility] Work Phone: Start: 02-02-2025 Ecg routine ecg w/le ast 12 lds w/i&r Vivian Gee PA-C Work Phone: Start: 02-02-2025 Follow-up visit Follow-up VIVIAN GEE Start: 01-31-2025 Prothrombin time [facility] Work Phone: Start: 01-24-2025 Prothrombin time Not In System Ref Prov Start: 12-26-2024 Ecg routine ecg w/le ast 12 lds w/i&r Ko Dietz MD Work Phone: Start: 12-23-2024 Prothrombin time [facility] Work Phone: Start: 12-16-2024 Prothrombin time [facility] Work Phone: Start: 11-11-2024 Prothrombin time [facility] Work Phone: Start: 10-07-2024 Prothrombin time [employer] Work Phone: Start: 09-12-2024 Prothrombin time [employer] Work Phone: Start: 08-09-2024 Prothrombin time [employer] Work Phone: Start: 07-26-2024 Prothrombin time [employer] Work Phone: Start: 06-28-2024 Prothrombin time [employer] Work Phone: Start: 06-06-2024 Prothrombin time [employer] Work Phone: Start: 05-27-2024 Prothrombin time [employer] Work Phone: Start: 05-20-2024 Prothrombin time [employer] Work Phone: Start: 05-11-2024 Prothrombin time [employer] Work Phone: Start: 04-22-2024 Prothrombin time [employer] Work Phone: Start: 03-25-2024 Prothrombin time [employer] Work Phone: Start: 03-21-2024 Ecg routine ecg w/le ast 12 lds w/i&r Beeb Taylor MD Work Phone: Start: 03-21-2024 Follow-up visit Follow-up BEBE Freitas WALDEMAR Start: 02-12-2024 Prothrombin time [employer] Work Phone: Start: 01-29-2024 Prothrombin time [employer] Work Phone: Start: 01-22-2024 Prothrombin time [employer] Work Phone: Start: 01-14-2024 Prothrombin time [employer] Work Phone: Start: 01-09-2024 Prothrombin time Not In System Ref Prov Start: 01-08-2024 Prothrombin time Not In System Ref Prov Start: 01-08-2024 CL Coronary Angio DO Ignacio Villeda Work Phone: Start: 01-07-2024 Prothrombin time Not In System Ref Prov Start: 01-07-2024 Radionuclide myocard ial perfusion stress study DO Booker Ronal Work Phone: Start: 01-06-2024 Prothrombin time Not In System Ref Prov Start: 01-05-2024 Plain chest X-ray DO Ignacio Villeda Work Phone: Start: 01-05-2024 Prothrombin time Not In System Ref Prov Start: 11-26-2023 Prothrombin time [employer] Work Phone: Start: 10-15-2023 Prothrombin time [employer] Work Phone: Start: 09-03-2023 Prothrombin time [employer] Work Phone: Start: 02-29-2020 Transurethral insert ion of prostatic urethral lift implant Phuc FORBES Start: 02-08-2020 Cystoscopy Phuc Gamble Start: 01-25-2020 Circumcision Phuc Gamble Start: 08-05-2018 Intracavitary brachytherapy Phuc FORBES Start: 05-27-2018 Transrectal biopsy o f prostate using ultrasound guidance [employer]uc [employer] Hemorrhoidectomy Phuc FORBES Open repair of ingui nal hernia Phuc FORBES Comment on above: with mesh, right Replacement of aortic valve Phuc FORBES Plan of Treatment Date Care Activity Detail Author Start: 12-03-2026 Diabetes Screening Diabetes Screening [facility] Start: 02-20-2026 Diabetes Screening Diabetes Screening [facility] Start: 02-02-2026 Tobacco Screening Tobacco Screening [facility] Start: 01-16-2026 Tobacco Screening Tobacco Screening [facility] Start: 01-03-2026 Tobacco Screening Tobacco Screening [facility] Start: 12-12-2025 Tobacco Screening Tobacco Screening [facility] Start: 11-22-2025 Tobacco Screening Tobacco Screening [facility] Start: 11-14-2025 Tobacco Screening Tobacco Screening [facility] Start: 11-03-2025 End: 02-02-2026 Prostate specific Ag [Mass/volume] in Serum or Plasma PROSTATE-SPECIFIC ANTIGEN DIAGNOSTIC Lab Routine Prostate cancer (HCC) Expected: 11/03/2025 (Approximate), Expires: 02/02/[address] [facility] Work Phone: Comment on above: Expected: 11/03/2025 (Approximate), Expi res: 02/02/2026 Start: 11-02-2025 End: 11-02-2025 Patient encounter procedure 11/02/2025 10:30 AM EST Office Visit Radiation Oncology [address] [place] [address] [place] [address] [place] [address] [place] [address] 1 year follow up Radiation Oncology Comment on above: 1 year follow up Start: 06-21-2025 Adult BMI Screening Adult BMI Screening [facility] Start: 06-21-2025 Tobacco Screening Tobacco Screening [facility] [employer] [facility] Start: 05-29-2025 End: 05-29-2025 Patient encounter procedure 05/29/2025 11:15 AM EDT Office Visit [facility] [address] [place] [phone] Tristan Watson MD [address] [place] [address] [facility] Start: 05-08-2025 Influenza vaccination Influenza Vaccine [facility] Start: 03-21-2025 Adult BMI Screening Adult BMI Screening [facility] Start: 03-21-2025 Tobacco Screening Tobacco Screening [facility] Start: 03-14-2025 End: 03-14-2025 Professional / ancillary services management 03/14/2025 1:00 PM EDT Ancillary Procedure [facility] [address] [place] [phone] [facility] Start: 03-13-2025 End: 02-02-2026 Wireless Telemetry (In Office) Wireless Telemetry (In Office) Cardiac Services Routine Postoperative atrial fibrillation ([facility]) Expected: 03/13/2025, Expires: 02/02/2026 [facility] Comment on above: Expected: 03/13/2025, Expires: Start: 03-02-2025 End: 03-02-2025 Patient encounter procedure 03/02/2025 1:00 PM EDT Office Visit [facility] [address] [place] [phone] Booker Swain MD [address] [facility] [place] [address] Robert Jade MD [address] [place], [place] [phone] [facility] Start: 03-02-2025 End: 03-02-2025 Follow-up encounter 03/02/2025 12:30 PM EDT Follow Up Anticoagulation [facility] - Pharmacy Medication Management [address] [place] [address] [facility] Medication Management Start: 02-20-2025 End: 02-20-2025 Follow-up encounter 02/20/2025 11:15 AM EDT Follow Up Anticoagulation [facility] Pharm[facility] Medication Management [address] [place] [address] [facility] Medication Management Start: 02-09-2025 End: 02-02-2026 Basic metabolic 2000 panel - Serum or Plasma Basic Metabolic Panel Lab Routine Chronic systolic heart failure ([facility]) Expected: 02/09/2025 (Approximate), Expires: 02/02/2026 [facility] Work Phone: Comment on above: Expected: 02/09/2025 (Approximate), Expi res: 02/02/2026 Start: 02-08-2025 End: 02-08-2025 Follow-up encounter 02/08/2025 11:00 AM EDT Follow Up Anticoagulation [facility] Pharm[facility] Medication Management [address] [place] [address] [facility] Medication Management Start: 02-02-2025 End: 02-02-2025 Patient encounter procedure 02/02/2025 12:00 PM EDT Office Visit [facility] [address] [place] [address] Vivian Gee, PAJas [address] [place] [address] [facility] Start: 01-20-2025 End: 01-20-2025 Follow-up encounter 01/20/2025 11:45 AM EDT Follow Up Anticoagulation [facility] Pharm[facility] Medication Management [address] [place] [address] [facility] Medication Management Start: 01-16-2025 End: 01-16-2025 Patient encounter procedure 01/16/2025 11:00 AM EDT Office Visit [facility] - Leonard Méndez [address] [place] [phone] [facility] - Leonard Méndez Start: 01-16-2025 End: 01-16-2025 Follow-up encounter 01/16/2025 10:30 AM EDT Follow Up Anticoagulation [facility] - Pharmacy Medication Management [address] [place] [address] [facility] Medication Management Start: 01-04-2025 Covid-19 Vaccine ( season) Covid-19 Vaccine (8 - season) [facility] Start: 01-04-2025 COVID-19 Vaccine (8 - Pfizer risk ) COVID-19 Vaccine (8 - Pfizer risk ) [facility] Start: 01-03-2025 End: 01-03-2025 Admission to same day surgery center 01/03/2025 7:30 AM EDT - 01/03/2025 1:30 PM EDT Surgery [facility] [address] [facility] [place] [address] Ko Dietz MD [address] [place] [address] REPAIR AORTIC ANEURYSM ASCENDING AORTA, REDO STERNOTOMY/ CORNELIUS [facility] Comment on above: REPAIR AORTIC ANEURYSM ASCENDING AORTA, REDO STERNOTOMY/ CORNELIUS Start: 01-03-2025 End: 01-03-2025 REDO STERNOTOMY REPAIR/REPLACE VALVE AORTIC REDO STERNOTOMY REPAIR/REPLACE VALVE AORTIC AORTIC ANEURYSM 01/03/2025 7:30 AM EDT [facility] Start: 01-03-2025 End: 01-03-2025 REPAIR AORTIC ANEURYSM ASCENDING AORTA WITH REPLACEMENT OF AORTIC ROOT REPAIR AORTIC ANEURYSM ASCENDING AORTA WITH REPLACEMENT OF AORTIC ROOT AORTIC ANEURYSM 01/03/2025 7:30 AM EDT [facility] Start: 01-03-2025 Subsequent hospital visit by physician 01/03/2025 7:30 AM EDT Hospital Encounter [facility] [address] [place] [phone] Ko Dietz MD [address], [address] [place] [address] [facility] - Surgery Start: 12-26-2024 End: 12-26-2024 Patient encounter procedure 12/26/2024 11:00 AM EDT Appointment [facility] - Vascular [address] [place] [phone] [facility] - Vascular Start: 12-23-2024 End: 12-23-2024 Follow-up encounter 12/23/2024 11:45 AM EDT Follow Up Anticoagulation [facility] Pharm[facility] Medication Management [address] [place] [address] [facility] Pharm[facility] Medication Management Start: 12-16-2024 End: 12-16-2024 Follow-up encounter 12/16/2024 11:00 AM EDT Follow Up Anticoagulation [facility] - Pharmacy Medication Management [address] [facility] [place] [address] [facility] Pharmacy Medication Management Start: 12-12-2024 End: 12-12-2025 US Carotid arteries - bilateral Vas carotid duplex bilateral Vascular Ultrasound STAT Bilateral carotid bruits Expected: 12/12/2024, Expires: 12/12/2025 [facility] Work Phone: Comment on above: Expected: 12/12/2024, Expires: Start: 12-12-2024 End: 12-12-2024 Patient encounter procedure 12/12/2024 11:30 AM EDT Office Visit [facility] Maria Esther [address] [place] [phone] Ko Dietz MD [address] [place] [address] [facility] - [facility] Start: 11-22-2024 End: 11-22-2024 Patient encounter procedure [facility] - Cardiovascular Start: 11-14-2024 End: 11-14-2025 CT Chest WO and CT angiogram Coronary arteries W contrast IV CT angiogram chest Imaging Routine Aortic root dilation ([facility]) Expected: 11/14/2024, Expires: 11/14/2025 [facility] [employer] [facility] Comment on above: Expected: 11/14/2024, Expires: Start: 11-14-2024 End: 11-14-2025 Echo complete W/O contrast Echo complete W/O contrast Echocardiography Routine Chronic systolic heart failure ([facility]) History of mechanical aortic valve replacement Expected: 11/14/2024, Expires: 11/14/2025 [facility] Work Phone: Comment on above: Expected: 11/14/2024, Expires: Start: 11-14-2024 End: 11-14-2024 Patient encounter procedure 11/14/2024 11:00 AM EDT Office Visit [facility]icians Cardiology [address] [place] [address] Christine Erickson, RADIATION ONCOLOGIST-NAME PLATE STAMPER [address] [place] [phone] Nixon Guzman PA-C [address] [place] [address] [facility] Start: 11-11-2024 End: 11-11-2024 Follow-up encounter 11/11/2024 11:00 AM EST Follow Up Anticoagulation [facility] Medication Therapy Management [address] [place] [address] [facility] Medication Therapy Management Start: 11-04-2024 End: 02-03-2025 Prostate specific Ag [Mass/volume] in Serum or Plasma PSA/PROSTSPECAG DIAG Lab Routine Prostate cancer (HCC) Expected: 11/04/2024 (Approximate), Expires: 02/03/[address] [facility] Work Phone: Comment on above: Expected: 11/04/2024 (Approximate), Expi res: 02/03/2025 Start: 10-20-2024 End: 10-20-2024 Patient encounter procedure 10/20/2024 11:00 AM EST Office Visit [facility] [address] [place] [phone] Christine Erickson, RADIATION ONCOLOGIST-NAME PLATE STAMPER [address] [place] [address] [facility] Start: 10-07-2024 End: 10-07-2024 Follow-up encounter 10/07/2024 11:00 AM EST Follow Up Anticoagulation [facility] Medication Therapy Management [address] [place] [address] [facility] Medication Therapy Management Start: 09-09-2024 End: 09-09-2024 Follow-up encounter 09/09/2024 11:45 AM EST Follow Up Anticoagulation [facility] Medication Therapy Management [address] [place] [address] [facility] Medication Therapy Management Start: 09-07-2024 Advance Directive Discussion Advance Directive Discussion [facility] Start: 09-01-2024 COVID-19 Vaccine ( season) COVID-19 Vaccine () [facility] Start: 08-09-2024 End: 08-09-2024 Follow-up encounter 08/09/2024 11:45 AM EST Follow Up Anticoagulation [facility] Medication Therapy Management [address] [place] [address] [facility] Medication Therapy Management Start: 07-26-2024 End: 07-26-2024 Follow-up encounter 07/26/2024 10:45 AM EST Follow Up Anticoagulation [facility] Medication Therapy Management [address] [place] [address] [facility] Medication Therapy Management Start: 06-28-2024 End: 06-28-2024 Follow-up encounter 06/28/2024 10:45 AM EDT Follow Up Anticoagulation [facility] Medication Therapy Management [address] [place] [address] [facility] Medication Therapy Management Start: 06-27-2024 End: 06-27-2024 Follow-up encounter 06/27/2024 1:30 PM EDT Follow Up Anticoagulation [facility] Medication Therapy Management [address] [place] [address] [facility] Medication Therapy Management Start: 06-21-2024 End: 06-21-2024 Patient encounter procedure 06/21/2024 3:15 PM EDT Office Visit [facility] [address] [phone] Bebe Taylor MD [address] [place] [address] [facility] Start: 06-06-2024 End: 06-06-2024 Follow-up encounter 06/06/2024 1:30 PM EDT Follow Up Anticoagulation [facility] Medication Therapy Management [address] [place] [address] [facility] Medication Therapy Management Start: 05-27-2024 End: 05-27-2024 Follow-up encounter 05/27/2024 1:30 PM EDT Follow Up Anticoagulation [facility] Medication Therapy Management [address] [facility] [place] [address] [facility] Medication Therapy Management Start: 05-20-2024 End: 05-20-2024 Follow-up encounter 05/20/2024 1:45 PM EDT Follow Up Anticoagulation [facility] Medication Therapy Management [address] [place] [address] [facility] Medication Therapy Management Start: 05-11-2024 End: 05-11-2024 Follow-up encounter 05/11/2024 1:30 PM EDT Follow Up Anticoagulation [facility] Medication Therapy Management [address] [place] [address] [facility] Start: 05-08-2024 COVID-19 Vaccine ( season) COVID-19 Vaccine () [facility] Start: 05-08-2024 COVID-19 Vaccine ( season) COVID-19 Vaccine () [facility] Start: 05-08-2024 Influenza vaccination Influenza Vaccine [facility] Start: 04-22-2024 End: 04-22-2024 Follow-up encounter 04/22/2024 11:15 AM EDT Follow Up Anticoagulation [facility] [address] [place] [address] [facility] Start: 03-27-2024 Adult BMI Screening Adult BMI Screening [facility] Start: 03-27-2024 Tobacco Screening Tobacco Screening [facility] Start: 03-25-2024 End: 03-25-2024 Follow-up encounter 03/25/2024 10:30 AM EDT Follow Up Anticoagulation [facility] [address] [place] [address] [facility] Start: 03-21-2024 End: 03-21-2024 Patient encounter procedure 03/21/2024 11:00 AM EDT Office Visit [facility] [address] [phone] Bebe Taylor MD [address] [place] [address] [facility] Start: 02-26-2024 End: 02-26-2024 Follow-up encounter 02/26/2024 10:45 AM EDT Follow Up Anticoagulation [facility] [address] [place] [address] [facility] Start: 02-12-2024 End: 02-12-2024 Follow-up encounter 02/12/2024 11:30 AM EDT Follow Up Anticoagulation [facility]ication [facility] [address] [place] [address] [facility] Start: 01-29-2024 End: 01-29-2024 Follow-up encounter 01/29/2024 11:45 AM EDT Follow Up Anticoagulation [facility]ication Therapy Management [address] [place] [address] [facility] Start: 01-22-2024 End: 01-22-2024 Follow-up encounter 01/22/2024 1:15 PM EDT Follow Up Anticoagulation [facility]ication Therapy Management [address] [place] [address] [facility] Start: 01-09-2024 [facility] Start: 01-07-2024 Fluoroscopy of Multiple Coronary Arteries using Low Osmolar Contrast Fluoroscopy of Multiple Coronary Arteries using Low Osmolar Contrast [facility] Start: 01-07-2024 Measurement of Cardiac Sampling and Pressure, Left Heart, Percutaneous Approach Measurement of Cardiac Sampling and Pressure, Left Heart, Percutaneous Approach [facility] Start: 01-07-2024 Radionuclide myocardial perfusion stress study NM keshia perf SPECT rest & str [facility] Start: 01-07-2024 End: 01-07-2024 Follow-up encounter 01/07/2024 11:30 AM EDT Follow Up Anticoagulation [facility]ication [facility] [address] [facility] [place] [address] Christina Sherman MD [address] [place] [address] [facility] Start: 01-05-2024 [facility] Start: 01-05-2024 Hospital admission [facility] Start: 01-05-2024 Referral to director of academic support [facility] Start: 01-05-2024 [facility] Start: 11-26-2023 End: 11-26-2023 Follow-up encounter 11/26/2023 11:30 AM EDT Follow Up Anticoagulation [facility] Medication Therapy Management [address] [place] [address] Christina Sherman MD [address] [place] [address] [facility] Start: 11-07-2023 End: 01-07-2024 Prostate specific Ag [Mass/volume] in Serum or Plasma PSA/PROSTSPECAG DIAG Lab Routine Prostate cancer (HCC) Expected: 11/07/2023 (Approximate), Expires: 01/07/[address] [facility] Work Phone: Comment on above: Expected: 11/07/2023 (Approximate), Expi res: 01/07/2024 Start: 09-07-2023 Advance Directive Discussion Advance Directive Discussion [facility] Start: 09-07-2023 Depression Assessment Depression Assessment [facility] Start: 08-26-2023 COVID-19 Vaccine ( season) COVID-19 Vaccine () [facility] Start: 09-07-2022 ADVANCE DIRECTIVE DISCUSSION ADVANCE DIRECTIVE DISCUSSION [facility] Start: 09-07-2022 DEPRESSION ASSESSMENT DEPRESSION ASSESSMENT [facility] Start: 2010 Abdominal aortic aneurysm screening Abdominal Aortic Aneurysm (AAA) Screen [facility] Start: 2010 Fall Risk Screening Fall Risk Screening [facility] Start: 2010 PNEUMOCOCCAL: 65+ (1 - PCV) PNEUMOCOCCAL: 65+ (1 - PCV) [facility] Start: 2005 RSV Vaccine (1 - 1-dose 60+ series) RSV Vaccine (1 - 1-dose 60+ series) [facility] Start: 12-23-1995 SHINGRIX VACCINE (1 of 2) SHINGRIX VACCINE (1 of 2) [facility] Start: 1990 DIABETES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 Narrative* G Wallace Catalan MD - 11/06/2022 10:06 AM EST Radiation Oncology - Follow Up Note PATIENT NAME: Debbi Zendejas PATIENT DIAGNOSIS: Prostate adenocarcinoma, initial PSA 6.59, biopsy [place] score 3 + 3 = 6 (grade [...] included in the EMR. documented in this [facility]03-02-2023 Nurse Note* Alize Adam RN - 11/06/2022 9:51 AM EST AUA 3 Alize Adam RN documented in this [facility]11-07-2022 Hospital Discharge instructions Patient Education 07/14/2022 [...] urethra. Follow these instructions at home: Take ibus-qbm-vqgjmzl and prescription medicines only as told by [...] 08/24/2006 Document Revised: 07/19/2019 Document Reviewed: 09/28/2017 [employer] Patient Education 2020 [employer]. Follow Up Care 04/07/2022 13:46:50 With:ANDREI BRAMBILA, Phuc Rubio, URL Address: [address] [place] [phone]- When: Unknown [facility] 08-01-2022 Hospital Discharge instructions Patient Education 04/07/2022 [...] Follow these instructions at home: Medicines Take mdrv-nfz-upmhygb and prescription medicines only as told by [...] 08/21/2001 Document Revised: 08/06/2018 Document Reviewed: 09/09/2017 [employer] Patient Education 2020 [employer] 04/07/2022 13:43:26 Benign Prostatic Hyperplasia Benign Prostatic [...] urethra. Follow these instructions at home: Take bqoi-ami-lajvzgt and prescription medicines only as told by [...] 08/24/2006 Document Revised: 07/19/2019 Document Reviewed: 09/28/2017 [employer] Patient Education [employer] Follow Up Care 03/17/2022 10:56:39 With:ANDREI BRAMBILA, Phuc W, URL Address: [address] [place] [phone]- [phone] When:Within 3 Month(s) [facility] 07-19-2022 Evaluation note* Encounter Date Diagnosis Assessment Notes Treatment Notes Treatment Clinical Notes Mar, KIM (generalized anxiety disorder) (ICD-10 - F41.1) Re[facility]ie Other 05-19-2022 Evaluation note* Encounter Date Diagnosis Assessment Notes Treatment Notes Treatment Clinical Notes January, KIM (generalized anxiety disorder) (ICD-10 - F41.1) [facility] Other 03-02-2022 Evaluation note* Encounter Date Diagnosis [...] H/O aortic valve replacement (ICD-10 - Z95.2) [facility] Other 01-20-2022 Evaluation note* Encounter Date Diagnosis Assessment Notes Treatment Notes Treatment Clinical Notes Sep, KIM (generalized anxiety disorder) (ICD-10 - F41.1) [facility] Other 11-22-2021 Evaluation note* Encounter Date Diagnosis Assessment Notes Treatment Notes Treatment Clinical Notes Jul, KIM (generalized anxiety disorder) (ICD-10 - F41.1) [facility]ie Other 11-09-2021 Evaluation note* Encounter Date Diagnosis Assessment Notes Treatment Notes Treatment Clinical Notes Jul, Flu vaccine need (ICD-10 - Z23) [facility] Other 10-19-2021 Evaluation note* Encounter Date Diagnosis Assessment Notes Treatment Notes Treatment Clinical Notes Jun, KIM (generalized anxiety disorder) (ICD-10 - F41.1) Re[facility]ie Other 10-15-2021 Evaluation note* Encounter Date Diagnosis Assessment Notes Treatment Notes Treatment Clinical Notes Jun, Acute non-recurrent maxillary sinusitis (ICD-10 - J01.00) Discussed treatment, side effects and to take with foods. He will call the coumadin clinic today to let them know about the augmentin [facility]ie Other 08-28-2020 NotePROCEDURE: XR FEMUR RT HISTORY: [...] Electronically authenticated by: YELENA MAGALLANES Date: 2020-05-04 11:33[facility] Future Appointments Appointment Date:07/21/2022 02:30:00 PM Scheduled Provider:Phuc FORBES MD Location:[facility] [place] Appointment Type:URO Office Visit [facility] evaluation + Plan note Future Appointments Appointment Date:11/17/2022 10:15:00 AM Scheduled Provider:Phuc FORBES MD Location:[facility] [place] Appointment Type:URO Office Visit [facility] Evaluation + Plan note Future Appointments Appointment Date:11/23/2023 10:15:00 AM Scheduled Provider:[facility]uc [facility]ES [facility] Office Visit [facility] evaluation + Plan note Future Appointments Appointment Date:12/05/2024 10:15:00 AM Scheduled Provider:Zeferino CHARLES MD Location:[facility] Appointment Type:URO Office Visit Diagnostic Tests Pending * PSA Total 09/07/24 [facility] evaluation + Plan note Future Appointments Appointment Date:12/05/2024 10:15:00 AM Scheduled Provider:Zeferino CHARLES MD Location:[facility] Appointment Type:URO Office Visit [facility] evaluation noteNo [facility] Other evaluation note* Diagnosis Prostate cancer (HCC)- Primary Malignant neoplasm of prostate documented [facility]* Diagnosis Prostate cancer (HCC)- Primary Malignant neoplasm of prostate documented in this encounter [facility]* Diagnosis Onset Date Resolution Status Chronic systolic (congestive) heart failure acute KIM (generalized anxiety disorder) acute H/O mechanical aortic valve replacement acute Fatigue noneactive Chest pain acute Chronic systolic (congestive) heart failure acute Generalized weakness acute H/O mechanical aortic valve replacement acute [facility] Work Phone: Evaluation note* Diagnosis Onset Date Resolution Status Chronic systolic (congestive) heart failure acute KIM (generalized anxiety disorder) acute H/O mechanical aortic valve replacement acute Fatigue noneactive Abnormal stress test acute Chest pain acute Chronic systolic (congestive) heart failure acute Diabetes mellitus type 2 in nonobese acute Generalized weakness acute H/O mechanical aortic valve replacement acute Hypertension acute [facility] Work Phone: evaluation note* Diagnosis Onset Date Resolution Status Chronic systolic (congestive) heart failure acute KIM (generalized anxiety disorder) acute H/O mechanical aortic valve replacement acute Fatigue noneactive Abnormal stress test acute Chest pain acute Chronic systolic (congestive) heart failure acute Diabetes mellitus type 2 in nonobese acute Generalized weakness acute H/O mechanical aortic valve replacement acute Hypertension acute Type 2 diabetes mellitus with hyperglycemia acute [facility] Work Phone: Evaluation note* Diagnosis Onset Date Resolution Status Chronic systolic (congestive) heart failure acute KIM (generalized anxiety disorder) acute H/O mechanical aortic valve replacement acute Fatigue noneactive Abnormal stress test acute Chronic systolic (congestive) heart failure acute Diabetes mellitus type 2 in nonobese acute Generalized weakness acute H/O mechanical aortic valve replacement acute Hypertension acute Chest pain resolved Type 2 diabetes mellitus with hyperglycemia acute [facility] Work Phone: evaluation note* Diagnosis Onset Date Resolution Status Abnormal stress test acute Chronic systolic (congestive) heart failure acute Diabetes mellitus type 2 in nonobese acute Generalized weakness acute H/O mechanical aortic valve replacement acute Hypertension acute Chest pain resolved Type 2 diabetes mellitus with hyperglycemia acute H/O mechanical aortic valve replacement acute 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 Hyperlipidemia, mixed acute Hypertension acute Type 2 diabetes mellitus with hyperglycemia acute [facility] Work Phone: Evaluation note* Diagnosis Onset Date Resolution Status Abnormal stress test acute Chronic systolic (congestive) heart failure acute Diabetes mellitus type 2 in nonobese acute Generalized weakness acute H/O mechanical aortic valve replacement acute Hypertension acute Chest pain resolved Type 2 diabetes mellitus with hyperglycemia acute H/O mechanical aortic valve replacement acute 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 Hyperlipidemia, mixed acute Hypertension acute Type 2 diabetes mellitus with hyperglycemia acute Diabetes mellitus type 2 in nonobese acute Generalized weakness acute 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 Hyperlipidemia, mixed acute Hypertension acute Type 2 diabetes mellitus with hyperglycemia acute [facility] Work Phone: Evaluation note* Diagnosis Onset Date Resolution Status H/O mechanical aortic valve replacement acute 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 Hyperlipidemia, mixed acute Hypertension acute Type 2 diabetes mellitus with hyperglycemia acute Diabetes mellitus type 2 in nonobese acute Generalized weakness acute 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 Hyperlipidemia, mixed acute Hypertension acute Type 2 diabetes mellitus with hyperglycemia acute [facility] Work Phone: Evaluation note* Diagnosis Onset Date Resolution Status Diabetes mellitus type 2 in nonobese acute Generalized weakness acute 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 Hyperlipidemia, mixed acute Hypertension acute Type 2 diabetes mellitus with hyperglycemia acute Chronic systolic (congestive) heart failure acute KIM (generalized anxiety disorder) acute Hypertensive heart disease with heart failure acute KIM (generalized anxiety disorder) acute Hypertensive heart disease with heart failure acute [facility] Work Phone: Evaluation note* Diagnosis Onset Date Resolution Status Chronic systolic (congestive) heart failure acute KIM (generalized anxiety disorder) acute Hypertensive heart disease with heart failure acute KIM (generalized anxiety disorder) acute Hypertensive heart disease with heart failure acute Diabetes mellitus type 2 in nonobese acute Generalized weakness acute 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 Hyperlipidemia, mixed acute Hypertension acute Type 2 diabetes mellitus with hyperglycemia acute [facility] Work Phone: Evaluation note* 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]- Primary Long-term (current) use of anticoagulants H/O aortic valve replacement--1967 ball in cage [facility]* 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]- Primary Long-term (current) use of anticoagulants H/O mechanical aortic valve replacement documented [facility] encounter [facility]* Diagnosis jail (current) use of anticoagulants [Z79.01]- Primary Long-term (current) use of anticoagulants H/O mechanical aortic valve replacement [facility] Diagnosis jail (current) use of anticoagulants [Z79.01]- Primary Long-term (current) use of anticoagulants H/O mechanical aortic valve replacement documented [facility]* Diagnosis jail (current) use of anticoagulants [Z79.01]- Primary Long-term (current) use of anticoagulants H/O mechanical aortic valve replacement [facility] this [facility]* 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]- Primary Long-term (current) use of anticoagulants H/O aortic valve replacement--1966 ball in cage documented [facility] this [facility]* 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]- Primary Long-term (current) use of anticoagulants H/O aortic valve replacement--1966 ball in cage [facility] Diagnosis jail (current) use of anticoagulants [Z79.01]- Primary Long-term (current) use of anticoagulants H/O aortic valve replacement--1966 ball in cage documented [facility]* Diagnosis Prostate cancer (HCC)- Primary Malignant neoplasm of prostate [facility] Diagnosis Chronic systolic heart failure (CMS-HCC)- Primary Chronic systolic heart failure History of mechanical aortic valve replacement Aortic root dilation (CMS-HCC) Thoracic aneurysm without mention of rupture H/O aortic valve replacement--1966 ball in cage documented [facility]* Diagnosis Aneurysm of ascending aorta without rupture- Primary documented in this [facility] note[facility] assessment information available [facility] Work Phone: Evaluation note* Diagnosis Bilateral carotid bruits- Primary [facility]* Diagnosis Aneurysm of ascending aorta without rupture documented in this encounter [facility]* 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]- Primary Long-term (current) use of anticoagulants H/O aortic valve replacement--1966 ball in cage documented [facility] this encounter [facility]* Diagnosis Aneurysm of ascending aorta without rupture- Primary documented in this encounter [facility]* Diagnosis jail (current) use of anticoagulants [Z79.01]- Primary Long-term (current) use of anticoagulants H/O aortic valve replacement--1966 ball in cage documented in this encounter [facility]* Diagnosis jail (current) use of anticoagulants [Z79.01]- Primary Long-term (current) use of anticoagulants H/O aortic valve replacement--1966 ball in cage documented in this encounter [facility]* Diagnosis jail (current) use of anticoagulants [Z79.01]- Primary Long-term (current) use of anticoagulants H/O aortic valve replacement--1966 ball in cage documented in this encounter [facility]* Diagnosis Visit for wound check- Primary S/P aortic aneurysm repair Other postprocedural status documented in this encounter [facility]* Diagnosis jail (current) use of anticoagulants [Z79.01]- Primary Long-term (current) use of anticoagulants H/O aortic valve replacement--1966 ball in cage documented in this encounter [facility]* Diagnosis jail (current) use of anticoagulants [Z79.01]- Primary Long-term (current) use of anticoagulants H/O aortic valve replacement--1966 ball in cage documented in this encounter [facility]* 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]- Primary Long-term (current) use of anticoagulants H/O aortic valve replacement--1966 ball in cage documented in this encounter [facility]* Diagnosis S/P aortic aneurysm repair- Primary Other postprocedural status Aneurysm of ascending aorta without rupture H/O aortic valve replacement--1966 ball in cage Chronic systolic heart failure (CMS-HCC) Chronic systolic heart failure Postoperative atrial fibrillation ([facility]) documented in this encounter [facility]* Diagnosis jail (current) use of anticoagulants [Z79.01]- Primary Long-term (current) use of anticoagulants H/O aortic valve replacement--1966 ball in cage documented in this encounter [facility] SystemHistory and physical note Author Liu Ferraro [facility] January 05, 2024 7:35pm Note Date/Time January 05, 2024 7:3 5pm [facility] [address] [place] [address] Hospitalist H&P Signed Patient: Debbi Zendejas MR#: [id number] : 1945 Acct:[id number] Age/Sex: 78 / M Adm Date: 4 Loc: ER Room: Type: [facility] ER Attending Dr: Copies to: MD Zeferino [...] negative unless noted below or in HPI [facility] Medical History (Updated 01/05/24 @ 19:33 [...] % (Auto) 13.2 % (.) 01/05/24 16:20 Kemper % (Auto) 7.1 % (.) 01/05/24 16:20 Eos % (Auto) 1.0 % (.) 01/05/24 16:20 Baso % (Auto) 0.2 % (.) 01/05/24 16:20 Nucleat RBC Rel Count 0.1 /100 WBC (0-0.5) 01/05/24 16:20 Neut # (Auto) 7.9 x10E3/uL (1.8-7.7) H 01/05/24 16:20 Lymph # (Auto) 1.3 x10E3/uL (1.00-4.8) 01/05/24 16:20 Kemper # (Auto) 0.7 x10E3/uL (0.0-0.8) 01/05/24 16:20 [...] which is exertional. He does follow with director of academic support at [facility] annually and denies recent cardiac workup. Examination [...] <Electronically signed by Liu Ferraro MD> 01/05/241934 [facility] Work Phone: History general Narrative - Reported* Type Description Date [...] nose - [facility] - M kady Bodi 04/25/2015 Surgical History SEED IMPLANTS--PROSTATE 07/2018 Surgical History CIRCUMCISION 01/2020 Surgical History UROCLIP PROCEDURE -- COOK Surgical History Hernia repair [facility] Hospitalization History see above Hospitalization History [facility] -- INTERNAL BLEEDING FROM UROCLIP PROCEDURE, GI BLEED 02/2020 Rezzie Other History of Present illness Narrative* Srikanth Schilling RPH - 09/03/2023 11:30 AM EST 15 minute [id number] follow-up anticoagulation appointment. INR performed in office [...] that persists or worsens. Srikanth Schilling RPH 09/03/23 1123 [facility] Narrative No data available for this section [facility] Discharge instructions Additional Instructions Monitor glucose levels twice daily. Keep a record of these. Take this record with you to your follow-up appointments. Continue your normal dose of Warfarin on Thursday, recheck PT/INR on Thursday. DISCHARGE INSTRUCTIONS FOR CARDIAC PBX TECHNICIAN PROCEDURE: Heart Cath The following instructions have [...] cold, numb, blue or white, call the director of academic support immediately. 4. ACTIVITY: You are advised to [...] bottle, follow the instructions on the bottle. [facility] is not responsible for incorrect prescription information provided by the patient during their visit. Do not stop your medications without consulting your health care provider. Please take the list with you to your next doctor's appointment.[facility] Work Phone: Hospital Discharge instructions No data available for this section [facility] on filedocumented in this encounter [facility] filedocumented in this [facility] on filedocumented in this encounter [facility] on filedocumented in this encounter [facility] filedocumented in this [facility] on filedocumented in this encounter [facility] on filedocumented in this encounter [facility] on filedocumented in this encounter [facility] on filedocumented in this encounter [facility] on filedocumented in this encounter [facility] on filedocumented in this encounter [facility]ructionsNot on filedocumented in this encounter [facility] on filedocumented in this encounter [facility]ructionsNot on filedocumented in this encounter [facility]ructionsNot on filedocumented in this encounter [facility] No data available for this section [facility] Narrative* Consultation (Routine) - Pending Review Specialty Diagnoses / Procedures Referred By Contact Referred To Contact Cardiothoracic Surgery Diagnoses Aneurysm of ascending aorta without rupture Nixon Guzman PA-C [address] [place] [address] Phone: tel:[phone] fax:[phone] [facility]acic Surgeons - Leonard Tafoya Sumner [address] [place] [id number] Phone: tel: fax: Referral ID Status Reason Start Date Expiration Date Visits Requested Visits Authorized [id number] Pending Review Specialty Services Required 11/29/2024 11/29/2025 1 1 [facility] Summary Purpose Family History No Family History Records Found Relationship Condition Age at Onset Recorded Date/T whitney brother Unknown brother Heart disease Unknown father Unknown grandparent Unknown Not Specified Unknown sister Unknown Relationship Condition Age at Onset Recorded Date/T whitney brother Unknown brother Diabetes mellitus Unknown Heart disease Unknown father Unknown Not Specified Unknown sister Unknown Relationship Condition Age at Onset Recorded Date/T whitney brother Unknown brother Diabetes mellitus Unknown Heart disease Unknown father Unknown mother Unknown sister Unknown Relationship Condition Age at Onset Recorded Date/T whitney brother Unknown Malignant neoplasm of prostate Unknown brother Diabetes mellitus Unknown Heart disease Unknown father Unknown mother Unknown sister Unknown Advance Directives No Advanced Directives Records Found Advance Directive Response Recorded Date/ Time Advance Directives No October 11:32am Documents on File Type Date Recorded Patient Director Stars Expl anation Advance Directive 03/04/2017 4:46 PM CONSE NT FOR TREATMENT 03/04/17 Date Activated Date Inactivated Comments 03/01/2020 8:12 AM 03/14/2020 7:44 PM Date Activated Date Inactivated Comments 12/09/2019 7:59 AM 12/09/2019 3:42 PM Latest Code Status on File Code Status Date Activated Date Inactivated Comments Full Code 03/01/2020 8:12 AM 03/14/2020 7:44 PM Code Status History Code Status Date Activated Date Inactivated Comments Full Code 12/09/2019 7:59 AM 12/09/2019 3:42 PM Documents on File Type Date Recorded Patient Director Stars Expl anation Advance Directive 03/04/2017 4:46 PM CONSE NT FOR TREATMENT 03/04/17 Date Activated Date Inactivated Comments 03/01/2020 8:12 AM 03/14/2020 7:44 PM Date Activated Date Inactivated Comments 12/09/2019 7:59 AM 12/09/2019 3:42 PM Date Activated Date Inactivated Comments 01/03/2025 1:35 PM Date Activated Date Inactivated Comments 03/01/2020 8:12 AM 03/14/2020 7:44 PM Date Activated Date Inactivated Comments 12/09/2019 7:59 AM 12/09/2019 3:42 PM Date Activated Date Inactivated Comments 01/03/2025 1:35 PM 01/09/2025 5:07 PM Date Activated Date Inactivated Comments 01/03/2025 1:35 PM 01/09/2025 5:07 PM Date Activated Date Inactivated Comments 03/01/2020 8:12 AM 03/14/2020 7:44 PM Date Activated Date Inactivated Comments 12/09/2019 7:59 AM 12/09/2019 3:42 PM Chief Complaint and Reason for Visit Chief [...] Hypertension Type 2 diabetes mellitus with hyperglycemia Chief Complaint 6 MONTH FOLLOW UP Chest pain x1 week Chest pain x1 week Chest pain x1 week Amb Documentation [place] [facility] [place] Reason for Visit Chronic systolic (co ngestive) heart failure KIM (generalized anxiety disorder) H/O mechanical aortic valve replacement Fatigue Abnormal stress test Chronic systolic (congestive) heart failure Diabetes mellitus type 2 in nonobese Generalized weakness H/O mechanical aortic valve replacement Hypertension Chest pain Type 2 diabetes mellitus with hyperglycemia Chief Complaint Chest pain x1 week Chest pain x1 week Chest pain x1 week Amb Documentation Hospital follow [place]chest [place] [facility] [place] Discharge / no meter Reason for Visit Abnormal stress test Chronic systolic (congestive) heart failure Diabetes mellitus type 2 in nonobese Generalized weakness H/O mechanical aortic valve replacement Hypertension Chest pain Type 2 diabetes mellitus with hyperglycemia H/O mechanical aortic valve replacement Heart failure with mildly reduced ejection fraction (HFmrEF) Hyperlipidemia, mixed Hypertension Type 2 diabetes mellitus with hyperglycemia Chief Complaint Chest pain x1 week Chest pain x1 week Chest pain x1 week Amb Documentation Hospital follow [place]chest pain [facility] [place] Discharge / no meter Type 2 diabetes mellitus Reason for Visit Abnormal stress test Chronic systolic (congestive) heart failure Diabetes mellitus type 2 in nonobese Generalized weakness H/O mechanical aortic valve replacement Hypertension Chest pain Type 2 diabetes mellitus with hyperglycemia H/O mechanical aortic valve replacement Heart failure with mildly reduced ejection fraction (HFmrEF) Hyperlipidemia, mixed Hypertension Type 2 diabetes mellitus with hyperglycemia Diabetes mellitus type 2 in nonobese Generalized weakness Heart failure with mildly reduced ejection fraction (HFmrEF) Hyperlipidemia, mixed Hypertension Type 2 diabetes mellitus with hyperglycemia Chief Complaint [facility] [place] Discharge / no meter e11.9 est care Reason for Visit H/O mechanical aorti c valve replacement Heart failure with mildly reduced ejection fraction (HFmrEF) Hyperlipidemia, mixed Hypertension Type 2 diabetes mellitus with hyperglycemia Diabetes mellitus type 2 in nonobese Generalized weakness Heart failure with mildly reduced ejection fraction (HFmrEF) Hyperlipidemia, mixed Hypertension Type 2 diabetes mellitus with hyperglycemia Chief Complaint Hospital Discharge / no meter e11.9 est care 6 MONTH FOLLOW UP Reason for Visit Diabetes mellitus ty pe 2 in nonobese Generalized weakness Heart failure with mildly reduced ejection fraction (HFmrEF) Hyperlipidemia, mixed Hypertension Type 2 diabetes mellitus with hyperglycemia Chronic systolic (congestive) heart failure KIM (generalized anxiety disorder) Hypertensive heart disease with heart failure KIM (generalized anxiety disorder) Hypertensive heart disease with heart failure Chief Complaint est care 6 MONTH FOLLOW UP 3 month f/u-DMN Reason for Visit Chronic systolic (co ngestive) heart failure KIM (generalized anxiety disorder) Hypertensive heart disease with heart failure KIM (generalized anxiety disorder) Hypertensive heart disease with heart failure Diabetes mellitus type 2 in nonobese Generalized weakness Heart failure with mildly reduced ejection fraction (HFmrEF) Hyperlipidemia, mixed Hypertension Type 2 diabetes mellitus with hyperglycemia Chief Complaint Admit Date positive cologuard September 23, 2024 1 1:30am Additional Source Comments (unrecognized sect ion and content) No Status Records FoundNo Status Records FoundNo Status Records FoundNo Status Records FoundNo Status Records FoundNo Status Records FoundNo Status Records FoundNo Status Records Found INFORMATION SOURCE (unrecogn ized section and content) DATE CREATED AUTHOR 02/08/2021 [facility] DATE CREATED AUTHOR AUTHOR'S ORGANIZ ATION 11/05/2024 [facility] DATE CREATED AUTHOR AUTHOR'S ORGANIZ ATION 12/07/2024 [place] [facility] DATE CREATED AUTHOR AUTHOR'S ORGANIZ ATION 01/12/2025 [facility] DATE CREATED AUTHOR AUTHOR'S ORGANIZ ATION 02/05/2025 [facility] DATE CREATED AUTHOR AUTHOR'S ORGANIZ ATION 02/05/2025 [facility] DATE CREATED AUTHOR AUTHOR'S ORGANIZ ATION 02/17/2025 [facility] DATE CREATED AUTHOR AUTHOR'S ORGANIZ ATION 02/22/2025 [facility] REASON FOR VISIT (unrecogniz ed section and content) Reason Comments Prostate Cancer Specialty Diagnoses / Procedures Referred By [facility] Referred To Contact Radiation Oncology / RADIATION ONCOLOGY Diagnoses 1 year follow up Procedures EST PATIENT Cande Catalan MD [address] [place] [address] [place] [address] Cande Catalan MD [facility] [place] [address] Referral ID Status Reason Start Date Expiration Date Visits Re quested Visits Authorized [id number] Closed 11/05/2023 09/06/2024 1 1 Reason Onset Date Comments Med Refill 09/12/2024 Reason Comments Follow-up EST PT F/U 1 YR L/S KBS SCHED W/ PT NO TESTS Reason Onset Date Comments Med Refill 05/27/2024 Reason Onset Date Comments Med Refill 06/16/2024 Reason Comments Follow-up OV F/U 3 MO NO TESTS L/S LLD Reason Comments Follow-up 4 mo f/u-l/s LLD Reason Onset Date Comments Hypotension 01/05/2025 Reason Comments Follow-up EST PT F/U TTH IP S/ P REDO STERNOTOMY SCHED W/ PT Reason Onset Date Comments Med Refill 02/09/2025 Care Team (unrecognized sect ion and content) Team Status: Active Member Role Status Dates Kel Rojas MD Sports [facility] [place] Active Team Status: Active Member Role Status Dates Booker Villeda DO Primary Care Provider Active Start: January 05, 2024 End: January 09, 2024 Zeferino Parks DO Emergency Provider Active St art: January 05, 2024 End: January 09, 2024 Liu Ferraro MD Attending Provider Active Sta rt: January 05, 2024 End: January 09, 2024 Team Status: Active Member Role Status Dates Booker Villeda DO Primary Care Provider Active Start: January 06, 2024 End: January 09, 2024 Zeferino Parks DO Emergency Provider Active St art: January 06, 2024 End: January 09, 2024 Liu Ferraro MD Admit Provider, Othe r Provider Active Start: January 06, 2024 End: January 09, 2024 Nara Nichols RN Other Provider Active Star t: January 06, 2024 End: January 09, 2024 Giovani Alcaraz MD Other Provider Active Start: M ay 2023 End: January 09, 2024 Kel Rojas MD Attending Provider, Other Provider Active Start: January 06, 2024 End: January 09, 2024 Ana May MD Other Provider Active Start: January 06, 2024 End: January 09, 2024 Team Status: Inactive Member Role Status Dates Booker Villeda DO Primary Care Provider Active Start: January 07, 2024 End: January 09, 2024 Zeferino Parks DO Emergency Provider Active [...] January 14, 2024 End: January 14, 2024 Team Status: Inactive Member Role Status Dates Booker Villeda DO Primary Care Provider Active Start: January 27, 2024 End: January 27, 2024 Kel Rojas MD Attending Provider Activ e Start: January 27, 2024 End: January 27, 2024 Team Status: Inactive Member Role Status Dates Booker Villeda DO Primary Care Provider Active Start: February 17, 2024 End: February 17, 2024 Isabel Maza APRN Attending Provider Active Start: February 17, 2024 End: February 17, 2024 Team Status: Inactive Member Role Status Dates Isabel Maza APRN Attending Provider Active Start: February 17, 2024 End: February 17, 2024 Team Status: Active Member Role Status Dates Booker Villeda DO Primary Care Provider Active Team Status: Inactive Member Role Status Dates Booker Villeda DO Primary Care Provid er, Attending Provider Active Start: November 13, 2023 End: November 13, 2023 Vest Busheler Relationship Specialty Start Date End Date Booker Villeda DO PCP - General Family Medicine 06/16/18 Vest Busheler Relationship Specialty Start Date End Date Booker Villeda DO PCP - General Family Medicine 06/16/18 Team Status: Active Member Role Status Dates Booker Villeda DO Primary Care Provid er, Attending Provider Active Start: October 22, 2023 Team Status: Active Member Role Status Dates Booker Villeda DO Primary Care Provider Active Start: January 05, 2024 Zeferino Parks , DO Emergency Provider Active St art: January 05, 2024 Liu Ferraro MD Admit Provider, Atte nding Provider Active Start: January 05, 2024 Team Status: Active Member Role Status Dates Booker Villeda DO Primary Care Provider Active Start: January 05, 2024 Zeferino Parks , DO Emergency Provider [...] Giovani Alcaraz MD Other Provider Active Start: 2023 Kel Rojas MD Attending Provider, Other Provider Active Start: January 06, 2024 Ana May MD Other Provider Active Start: January 06, 2024 Team Status: Active Member Role Status Dates Kel Rojas MD Sports Medicine [place] Active Booker Villeda DO Primary Care Provider Active Team Status: Inactive Member Role Status Dates Booker Villeda DO Primary Care Provid er, Attending Provider Active Start: April 15, 2024 End: April 15, 2024 Team Status: Inactive Member Role Status Dates Booker Villeda DO Primary Care Provid er, Attending Provider Active Start: May 13, 2024 End: May 13, 2024 Team Status: Inactive Member Role Status Dates Booker Villeda DO Primary Care Provider Active Start: May 26, 2024 End: May 26, 2024 Isabel Maza APRN Attending Provider Active Start: May 26, 2024 End: May 26, 2024 Vest Busheler Relationship Specialty Start Date End Date Booker Villeda DO PCP - General 01/27/17 Vest Busheler Relationship Specialty Start Date End Date Booker Villeda DO PCP - General 01/27/17 Vest Busheler Relationship Specialty Start Date End Date Booker Villeda DO PCP - General 01/27/17 Vest Busheler Relationship Specialty Start Date End Date Booker iVlleda DO [address] [place] [id number] PCP - General 01/27/17 Vest Busheler Relationship Specialty Start Date End Date Booker Villeda DO [address] [place] [id number] PCP - General 01/27/17 Vest Busheler Relationship Specialty Start Date End Date Booker Villeda DO [address] [place], [place] [id number] PCP - General 01/27/17 Vest Busheler Relationship Specialty Start Date End Date Booker Villeda DO [address] [place], [place] [id number] PCP - General 01/27/17 Vest Busheler Relationship Specialty Start Date End Date Booker Villeda DO PCP - General 01/27/17 Vest Busheler Relationship Specialty Start Date End Date Booker Villeda DO [address] [place], [place] [id number] PCP - General 01/27/17 Vest Busheler Relationship Specialty Start Date End Date Booker Villeda DO PCP - General 01/27/17 Vest Busheler Relationship Specialty Start Date End Date Booker Villeda DO PCP - General 01/27/17 Vest Busheler Relationship Specialty Start Date End Date Booker Villeda DO PCP - General 01/27/17 Vest Busheler Relationship Specialty Start Date End Date Booker Villeda DO PCP - General 01/27/17 Vest Busheler Relationship Specialty Start Date End Date Booker Villeda DO PCP - General Family Medicine 06/16/18 Vest Busheler Relationship Specialty Start Date End Date Booker Villeda DO PCP - General Family Medicine 11/07/24 Vest Busheler Relationship Specialty Start Date End Date Booker Villeda DO PCP - General Family Medicine 11/07/24 Vest Busheler Relationship Specialty Start Date End Date Booker Villeda DO PCP - General Family Medicine 11/07/24 Booker Villeda DO [address] [place] [address] Provider Family Medicine 11/14/24 Vest Busheler Relationship Specialty Start Date End Date Booker Villeda DO PCP - General Family Medicine 11/07/24 Booker Villeda DO [address] [place] [address] Provider Family Medicine 11/14/24 Team Status: Inactive Member Role Status Dates Booker Villeda DO Primary Care Provider Active Start: September 23, 2024 End: September 23, 2024 Pamela Ulloa MD Attending Provider Active Start: September 23, 2024 End: September 23, 2024 Team Status: Active Member Role Status Dates Booker Villeda DO Primary Care Provider Active Start: October 26, 2024 Mary Catalan MD Attending Provider Active Start: October 26, 2024 Team Status: Active Member Role Status Dates Booker Villeda DO Primary Care Provider Active Start: November 07, 2024 Isabel Maza APRN Attending Provider Active Start: November 07, 2024 Vest Busheler Relationship Specialty Start Date End Date Booker Villeda DO PCP - General Family Medicine 11/07/24 Booker Villeda DO [address] [facility] [place] [address] Provider Family Medicine 11/14/24 Vest Busheler Relationship Specialty Start Date End Date Booker Villeda DO PCP - General Family Medicine 11/07/24 Booker Villeda DO [address] [facility] [place] [address] Provider Family Medicine 11/14/24 Vest Busheler Relationship Specialty Start Date End Date Booker Villeda DO PCP - General Family Medicine 11/07/24 Booker Villeda, DO [address] [facility] [place] [address] Provider Family Medicine 11/14/24 Vest Busheler Relationship Specialty Start Date End Date Booker Villeda DO PCP - General Family Medicine 11/07/24 Booker Villeda DO [address] [facility] [place] [address] Provider Family Medicine 11/14/24 Vest Busheler Relationship Specialty Start Date End Date Booker Villeda DO PCP - General Family Medicine 11/07/24 Booker Villeda DO [address] [facility] [place] [address] Provider Family Medicine 11/14/24 Vest Busheler Relationship Specialty Start Date End Date Booker Villeda DO PCP - General Family Medicine 11/07/24 Booker Villeda DO [address] [facility] [place] [address] Provider Family Medicine 11/14/24 Vest Busheler Relationship Specialty Start Date End Date Booker Villeda DO PCP - General Family Medicine 11/07/24 Booker Villeda DO [address] [facility] [place] [address] Provider Family Medicine 11/14/24 Vest Busheler Relationship Specialty Start Date End Date Booker Villeda DO PCP - General Family Medicine 11/07/24 Booker Villeda DO [address] [facility] [place] [address] Provider Family Medicine 11/14/24 Vest Busheler Relationship Specialty Start Date End Date Booker Villeda DO PCP - General Family Medicine 11/07/24 Booker Villeda DO [address] [facility] [place] [address] Provider Family Medicine 11/14/24 Vest Busheler Relationship Specialty Start Date End Date Booker Villeda DO PCP - General Family Medicine 11/07/24 Booker Villeda, DO [address] [facility] [place] [address] Provider Family Medicine 11/14/24 Vest Busheler Relationship Specialty Start Date End Date Booker Villeda DO PCP - General Family Medicine 11/07/24 Booker Villeda DO [address] [place] [address] Provider Family Medicine 11/14/24 Vest Busheler Relationship Specialty Start Date End Date Bookre Villeda DO PCP - General Family Medicine 11/07/24 Booker Villeda DO [address] [facility] [place] [address] Provider Family Medicine 11/14/24 Vest Busheler Relationship Specialty Start Date End Date Booker Villeda DO PCP - General Family Medicine 11/07/24 Booker Villeda DO [address] [place] [address] Provider Family Medicine 11/14/24 Source Comments (unrecognize d section and content) In the event this informatio n is protected by the Federal Confidentiality of Alcohol and Drug Abuse Patient Records regulations: The Federal rules restrict any use of the information to criminally investigate or prosecute any alcohol or drug abuse patient.[facility] the event this information is protected by the Federal Confidentiality of Alcohol and Drug Abuse Patient Records regulations: The Federal rules restrict any use of the information to criminally investigate or prosecute any alcohol or drug abuse patient.[facility] the event this information is protected by the Federal Confidentiality of Alcohol and Drug Abuse Patient Records regulations: The Federal rules restrict any use of the information to criminally investigate or prosecute any alcohol or drug abuse patient.[facility] Goals (unrecognized section and content) Goals [...] BE BASED ON THE PRIMARY CLINICAL RECORDS. [facility]. provides no warranty or guarantee of the accuracy or completeness of information in this document.
--- NOTE | 2025-02-23 19:49 | ED.EPISTAXI1 ---
HPI - Epistaxis General Chief Complaint: Epistaxis Stated Complaint: BLOODY NOSE, BLOOD THINNERS Time Seen by Provider: 02/23/25 19:02 Source: patient Mode of arrival: walk-in Limitations: no limitations History of Present Illness HPI Narrative: The gentleman is a 79-year-old male who presents to the emergency department with his for epistaxis. 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 When his INR level was checked a week and a half ago his INR was subtherapeutic at 1.2. He stated that they increased his Coumadin level. At 5 PM he stated he touched his nose but denies any internal digital trauma, coughing, or sneezing. The patient states that his nose bled intermittently for 1 hour. He denies any nausea from swallowing the blood he does not feel like it is going down the back of his throat. He states he feels like his nose has been bleeding ever since he has been on Coumadin but nothing ever like today. Patient is taking all of his medications as prescribed. No other complaints at this time. Bleeding has stopped prior to arrival. Related Data Home Medications ?Medication ?Instructions ?Recorded ?Confirmed lorazepam 0.5 mg tablet 0.5 mg PO .hs 01/12/24 01/12/24 metoprolol succinate 25 mg 25 mg PO DAILY 01/12/24 01/12/24 tablet,extended release 24 hr sacubitril 24 mg-valsartan 26 mg 1 tab PO DAILY 01/12/24 01/12/24 tablet (Entresto) tadalafil 20 mg tablet 20 mg PO PRN PRN sexual activity 01/12/24 01/12/24 tamsulosin 0.4 mg capsule 0.4 mg PO Q24H 01/12/24 01/12/24 warfarin 5 mg tablet 5 mg PO .COMPLEX 01/12/24 01/12/24 Allergies Allergy/AdvReac Type Severity Reaction Status Date / Time No Known Drug Allergies Allergy Verified 02/23/25 18:54 Review of Systems ROS Narrative 10 Systems were reviewed, and unless noted in the HPI, all other systems are reviewed, unremarkable, or noncontributory. PFSH PFSH Social History Little interest or pleasure in doing things: not at all Feeling down, depressed, or hopeless: not at all Exam Narrative Exam Narrative: Prior to examining the patient, I have washed with hospital approved and provided Antiseptic Hand Insecticide Mixer and have also applied gloves.? Prior to touching the patient, I asked for consent to examine the patient.? General: Alert and oriented, well nourished, mild distress. Eye: PERRL, EOMI, normal conjunctiva. HENT: Normocephalic, normal hearing, moist oral mucosa, no scleral icterus, no blood in the posterior oropharynx. Patient has blood and engorged veins in Lulu box triangle on the right side. Neck: Supple, non-tender, no carotid bruits, no JVD, no lymphadenopathy. Lungs: Clear to auscultation and percussion, non-labored respiration. Heart: Normal rate, regular rhythm, no murmur, gallop or edema. Musculoskeletal: Normal range of motion and strength, no tenderness or swelling. Skin: Skin is warm, dry and pink, no rashes or lesions. Neurologic: Awake, alert, and oriented X3, CN II-XII intact. Psychiatric: Cooperative, appropriate mood and affect.? Following the conclusion of the examination, I have washed my hands thoroughly after removing examination gloves. Constitutional Vital Signs, click to edit/add: Last Vital Signs Temp 97.5 F L 02/23/25 18:52 Pulse 66 02/23/25 21:10 Resp 16 02/23/25 21:10 BP 132/70 02/23/25 21:10 Pulse Ox 98 02/23/25 21:10 O2 Del Method Room Air 02/23/25 21:10 Course Course Hospital Course: Patient had silver nitrate stick used to cauterize the patient's nose. Patient tolerated the procedure well. Vital Signs Vital signs: Vital Signs Temperature 97.5 F L 02/23/25 18:52 Pulse Rate 66 02/23/25 18:52 Respiratory Rate 18 02/23/25 18:52 Blood Pressure 167/74 H 02/23/25 18:52 Pulse Oximetry 68 L 02/23/25 18:52 Oxygen Delivery Method Room Air 02/23/25 18:52 Temperature 97.5 F L 02/23/25 18:52 Pulse Rate 66 02/23/25 21:10 Respiratory Rate 16 02/23/25 21:10 Blood Pressure 132/70 02/23/25 21:10 Pulse Oximetry 98 02/23/25 21:10 Oxygen Delivery Method Room Air 02/23/25 21:10 MDM - Epistaxis MDM Narrative Medical decision making narrative: In summary, the patient is a very pleasant 79-year-old male on Coumadin for mechanical valve. Patient had episode of epistaxis that resolved prior to arrival. Patient however did have small engorged vessels in the Lulu box area of the nose. And therefore, I felt compelled to use a silver nitrate stick to cauterize that area of the nose to help prevent further bleeding in the near future. Patient's INR is 3.11. I asked him to call the Coumadin clinic to see if there was any adjustments that need to be made since he just recently increased his dose of form a subtherapeutic dose. Patient has not had any further bleeding throughout the entire time he was in the emergency department. Differential Diagnosis Differential diagnosis: Likely anterior epistaxis, posterior epistaxis and other (Coagulopathy) Lab Data Attestation: I reviewed the patient's lab results. Labs: Lab Results 02/23/25 Range/Units 20:02 WBC 9.4 (4.0-11.0) 10^3/uL RBC 3.70 L (4.70-6.10) 10^6/uL Hgb 12.0 L (14.0-18.0) g/dL Hct 35.5 L (42.0-54.0) % MCV 95.9 H (80.0-94.0) fL MCH 32.4 (25.9-34.0) pg MCHC 33.8 (29.9-35.2) g/dL RDW 14.9 (11.0-15.0) % Plt Count 173 (150-450) 10^3/uL MPV 10.1 (9.5-13.5) fL PT 29.5 H (9.0-11.6) sec INR 3.11 Discharge Plan Discharge Chief Complaint: Epistaxis Clinical Impression: Epistaxis, Medication induced coagulopathy Patient Disposition: Home, Self-Care Time of Disposition Decision: 20:55 Condition: Good Mode of Transportation: Private Vehicle Prescriptions / Home Meds: No Action metoprolol succinate 25 mg tablet extended release 24 hr 25 mg PO DAILY Entresto 24-26 mg tablet 1 tab PO DAILY warfarin 5 mg tablet 5 mg PO .COMPLEX Rx Instructions: 5 mg orally 5 mg daily and 2.5 mg on thursday tadalafil 20 mg tablet 20 mg PO PRN PRN (Reason: sexual activity) tamsulosin 0.4 mg capsule 0.4 mg PO Q24H lorazepam 0.5 mg tablet 0.5 mg PO .hs Print Language: Estonian Instructions: Nosebleed (ED) Additional Instructions: Please follow-up with your blood thinning clinic (Coumadin clinic) and let them know that your INR was 3.11. See if they want to adjust your warfarin/Coumadin. Referrals: Physician,Non-Staff, MD [Primary Care Provider] - 1 week Discharge Date/Time: 02/23/25 21:13 Procedures ED Procedure Instructions Procedures Procedures: I used a silver nitrate stick to cauterize the oozing vessels in the patient's right nare.
[2025-02-23 20:10] LABS: Hematocrit 35.5 % (42.0-54.0); Mean Corpuscular HGB Conc 33.8 g/dL (29.9-35.2); Mean Corpuscular Hemoglobin 32.4 pg (25.9-34.0); Mean Corpuscular Volume 95.9 fL (80.0-94.0); Mean Platelet Volume 10.1 fL (9.5-13.5); Platelet Count 173 10^3/uL (150-450); Red Cell Distribution Width 14.9 % (11.0-15.0); White Blood Count 9.4 10^3/uL (4.0-11.0)
[2025-02-23 20:42] LABS: INR 3.11; Prothrombin Time 29.5 sec (9.0-11.6)
[2025-02-23] MEDS: SILVER NITRATE APPLICATOR STICK 1 APPLIC TOPICAL (20:58)
[2025-02-23 21:10] VITALS: BP 132/70; PULSE 66; O2SAT 98
== END 2025-02-23 21:13 | disposition home or self-care (01) ==
PROVIDERS: Emergency Provider Emergency Medicine
DX: R04.0 Epistaxis (principal); D68.32 Hemorrhagic disorder due to extrinsic circulating anticoagulants; Z79.01 Long term (current) use of anticoagulants
CPT/HCPCS: 36415; 85027; 85610; 99283

== ENCOUNTER 2025-03-14 15:01 | Emergency (ER) | payer MEDICARE, SELFPAY ==
--- OUTSIDE RECORDS SUMMARY | 2025-03-02 12:30 | XMS_ITS | Encounter Summary ---
Author Organization [facility] Proenza Schouer [facility] tem Address [id number] [address] [place] [address] Care Team Providers Care Turkey Boner Name Role Phone Casper Vilchis DO Primary Care Provider Destiney chavis Encounter Details Date Type Department Care Team (Latest Contact Info) Description 03/02/2025 12:30 PM EDT Follow Up Anticoagulation [facility] - [facility] Medication Management [address] [place] [address] group home (current) use of anticoagulants [Z79.01] (Primary Dx); H/O aortic valve replacement--1967 ball in cage Social History Tobacco Use Types Packs/Day Years Used Date Smoking Tobacco: Former Cigarettes 2 2 0 12/07/1977 - 12/08/1979 Smokeless Tobacco: Never Alcohol Use Standard Drinks/Week Comments Not Currently 0 (1 standard drink = 0.6 oz pur e alcohol) [facility] Utilities Answer Date Recorded In the past 12 months has e [employer], gas, oil, or water [employer] threatened to shut off services in your [...] got money to buy more. Never True 03/02/2025 Within the past 12 months th e food we bought just didn't last and we didn't have money to get more. Never True 03/02/2025 Purpose - Life Answer Date Recorded Purpose and direction in life Unknown Sex and Gender Information Value Date Recorded Sex Assigned at Not on file Legal Sex Male 11:57 AM EDT Gender Identity Not on file Sexual Orientation Not on file documented as of this encounter Progress Notes * Shazia Jung, [facility] - 03/02/2025 12:30 PM EDT 15 minute [id number] follow-up anticoagulation appointment. INR performed in office per protocol. INR 5.9 (goal range: 2.5-3.5). Patient reports: Taking warfarin dosing as documented. Missed or extra doses of warfarin: No Changes to medications: No Changes to lifestyle (diet / alcohol / smoking / activity): No Recent emergency department visit / hospitalization / health changes / new contraindication to current anticoagulant: YES Patient went to the ER at [facility] about 1 week again for nose bleed Signs/symptoms of bruising/bleeding or clotting or any intolerable adverse events: No Upcoming procedures: No Anticoagulant prescription needed: No Seen referring provider in the last year Duration of therapy reviewed Assessment: INR is elevated (from 1.4 to 5.9) with a 12% dose increase. INR was therapeutic at 3.1 last week per ER visit note. We will reduce weekly dose 6% and hold x1 Plan: Patient instructed to hold warfarin 03/02, then decrease to 7.5 mg MWF and 5 mg AOD. Check INRin 5 day(s). Patient verbalizes understanding of anticoagulant dosing instructions and information discussed. Dosing regimen, counseling, and follow-up appointment were provided to the patient. Patient reminded to call with questions or any medication changes. Patient instructed to seek medical attention if anymajor bleeding/bleeding that persists or worsens. Shazia Jung RPH 03/02/25 1228 documented in this encounter Plan of Treatment Upcoming Encounters Date Type Department Care Team (Late st Contact Info) Description 03/24/2025 1:30 PM EDT Follow Up Anticoagulation [facility] - Pharm[facility] Medication Management [address] [place] [address] 08/14/2025 2:30 PM EST Office Visit [facility] [address] [place] [address] Robert Jade MD [address] [place] [address] documented as of this encounter Goals Goal Patient Goal Type Associated Problems Recent Progress Patient-Stated? Author <enter goal here> General Yes Viola Gamble RN Note: Evaluation of progress towards goal: patient progressing toward safe discharge home. 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] H/O aortic valve replacement--1966 ball in cage documented in this encounter Results * (ABNORMAL) POCT Protime / INR (03/02/2025 12:22 PM EDT) INR 5.9(A) 0.8 - 1.2 MANUALLY TRANSCRIBED RESULTS 03/02/2025 12:2 2 PM EDT [facility] Medication Management POINT O F CARE TEST ORDERABLES Final Result MANUALLY TRANSCRIBED RESULTS documented in this encounter Visit Diagnoses Diagnosis 

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
--- OUTSIDE RECORDS SUMMARY | 2025-03-06 20:15 | XMS_ITS | Continuity of Care Document ---
Author Organization [facility] Address [address] [place] [address] Phone Care Team Providers Care Oil Lease Operator Name Role Phone Casper Vilchis DO Primary Care Provider Nancy Tatum LPN Attending Provider UnaCasper Up DO Attending Provider Isabel Quezada APRN Attending Provider [phone] Care Teams Patient Care Team Team Status: Active Member Role Status Dates Kel Rojas MD Reading Tutor Active Visit Care Team Team Status: Active Member Role Status Dates Casper Vilchis DO Primary Care Provider Active Start: January 12, 2025 Nancy Tatum LPN Attending Provider Active Start: January 12, 2025 Visit Care Team Team Status: Active Member Role Status Dates Casper Vilchis DO Primary Care Provider Active Start: January 12, 2025 Nancy Tatum LPN Attending Provider Active Start: January 12, 2025 Visit Care Team Team Status: Inactive Member Role Status Dates Casper Vilchis DO Primary Care Provider Active Start: February 16, 2025 End: February 16, 2025 Casper Vilchis DO Attending Provider Active S tart: February 16, 2025 End: February 16, 2025 Visit Care Team Team Status: Inactive Member Role Status Dates Casper Vilchis DO Primary Care Provider Active Start: February 16, 2025 End: February 16, 2025 Casper Vilchis DO Attending Provider Active S tart: February 16, 2025 End: February 16, 2025 Visit Care Team Team Status: Active Member Role Status Dates Casper Vilchis DO Primary Care Provider Active Start: February 17, 2025 Nancy Tatum LPN Attending Provider Active Start: February 17, 2025 Visit Care Team Team Status: Inactive Member Role Status Dates Casper Vilchis DO Primary Care Provider Active Start: March 06, 2025 End: March 06, 2025 Isabel Quezada APRN Attending Provider Active Start: March 06, 2025 End: March 06, 2025 Patient Care Team Team Status: Inactive Member Role Status Dates Isabel Quezada APRN Attending Provider Active Start: March 06, 2025 End: March 06, 2025 Chief Complaint and Reason for Visit Chief Complaint Admit Date Amb Documentation January 12, 2025 11:46a m Amb Documentation January 12, 2025 12:10p m Hospital follow up February 16, 2025 10:2 4am I71.21 February 16, 2025 11:0 7am Amb Documentation February 17, 2025 9:32 am DM 6 month follow up-No MEter March 06, 2025 12:49pm Reason for Visit Admit Date Ascending aortic aneurysm February 16 10:24am KIM (generalized anxiety disorder) February 16, 2025 10:24am H/O mechanical aortic valve replacement February 16, 2025 10:24am Abnormal stool test February 16, 2025 10:2 4am 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 February 16, 2025 10:24am Diabetes mellitus type 2 in nonobese Robbi e 2024 12:49pm Generalized weakness March 06, 2025 12: 49pm 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 5 - Other fecal abnormalities Allergies, Adverse Reactions, Alerts Allergen Type Severity Reaction Last Updated Verified Status No Known Allergies Allergy Unknown March 06, 2025 1:00p m Yes Active Social History Smoking Status Status Start Date End Date Date of Observa tion Ex-smoker (finding) September 23, 2024 12:38pm Observation Status Observation Response Date of Response Legal Sex Male (finding) Sex Assigned At Male December Family History Relationship Condition Age at Onset Recorded Date/T whitney brother Unknown Malignant neoplasm of prostate Unknown brother Unknown brother Diabetes mellitus Unknown Heart disease Unknown father Unknown mother Unknown sister Unknown Problems Active Problems Medical Problem Onset Date Status Diabetes mellitus type 2 in nonobese Unknown Active 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) Unknown Active KIM (generalized anxiety disorder) Unknown Active Type 2 diabetes mellitus with hyperglycemia Unkn own Active H/O mechanical aortic valve replacement Unknown Active Generalized weakness Unknown Active Hyperlipidemia, mixed Unknown Active Hypertensive heart disease with heart failure Un known Active Abnormal stress test Unknown Active Ascending aortic aneurysm Unknown Active Adenocarcinoma of prostate Unknown Activ e Chronic systolic (congestive) heart failure Unkn own Active Hypertension Unknown Active Inactive/Resolved Problems Medical Problem Onset Date Status Impaired fasting glucose Unknown Resolve d Chest pain Unknown Resolved Medications Medication Status Dose Units Route Directions Qty Days St art Date Stop Date End Date Instructions Adherence Lorazepam 0.5 mg tablet Discont inued 0.5 MG PO Daily as needed for anxiety February 02, 2024 3:44pm Augus t 2023 9:22a m Tamsulosin 0.4 mg capsule Discont inued 0.4 MG PO Daily March 07, 2024 1:27pm Novem 2023 10:58 am Sertraline 25 mg tablet Active 25 MG PO Daily April 18, 2024 12:00a m Unknown Lorazepam 0.5 mg tablet Discont inued 0.5 MG PO Daily as needed for anxiety April 21, 2024 9:22am Octob er 2023 9:43p m Empaglifloz in (Jardiance) 10 mg tablet Discont inued 0 .ROUTE .COMPLEX 30 2023 3:24pm Decem ever 2023 2:48p m TAKE 1 TABLET BY MOUTH DAILY Lorazepam 0.5 mg tablet Discont inued 0.5 MG PO Daily as needed for anxiety Junobe r 2023 9:42pm Decem ever 2023 9:28a m Warfarin 5 mg tablet Discont inued 0 .ROUTE .COMPLEX 90 Octobe r 2023 7:44am February 16, 2025 10:59 am USE DIRECTED; TAKE 1 TABLET BY MOUTH EVERY DAY except THURSDAY, on THURSDAY TAKE 1/2 (ONE-HALF) OF A TABLET DAILY Alcohol Swabs pads, medicated Discont inued 1 PAD TOPICA L Twice daily 100 Octobe r 2023 4:45pm Janua ry 2024 5:46p m Valacyclovi r 1 gram tablet Discont inued 1000 MG PO Every 8 hours 7 Novemb er 2023 1:00am Novem ever 2023 8:46a m Valacyclovi r 1 gram tablet Discont inued 0 .ROUTE .COMPLEX 21 Novemb er 2023 8:46am Decem ever 2023 2:15p m TAKE 1 TABLET BY MOUTH EVERY 8 HOURS Tamsulosin 0.4 mg capsule Discont inued 0.4 MG PO Daily 90 b er 2023 10:58a m March 06, 2025 1:03p m Lorazepam 0.5 mg tablet Discont inued 0.5 MG PO Daily as needed for anxiety Decemb er 2023 9:28am Febru jeremiah 2024 11:09 am Alcohol Swabs pads, medicated Discont inued 1 PAD TOPICA L Twice daily 100 Sepuar y 2024 5:46pm Sepua ry 2024 5:47p m Alcohol Swabs pads, medicated Discont inued 1 PAD TOPICA L Twice daily 100 Sepuar y 2024 5:47pm Sepua ry 2024 1:32p m Lorazepam 0.5 mg tablet Discont inued 0.5 MG PO Daily as needed for anxiety 2024 11:09a m December 29, 2024 11:27 am Lorazepam 0.5 mg tablet Discont inued 0.5 MG PO Daily as needed for anxiety 30 December 29, 2024 11:27a m February 16, 2025 10:49 am Metformin 500 mg tablet extended release 24 hr Active 0 .ROUTE .COMPLEX 180 March 06, 2025 5:33pm TAKE 1 TABLET BY MOUTH TWICE DAILY Unknown Baclofen 20 mg tablet Active 10 MG PO Twice daily as needed for muscle spasm Novem er 2017 1:00am Unknown Warfarin 5 mg tablet Discont inued 5 MG PO .complex [facility] er 2017 1:00am Oct er 2023 7:44a m 5 mg PO every Thursday, Thursday, Thursday, , Thursday, Thursday 2.5 mg PO every Thursday Prosta Response Discont inued [facility] er 2017 1:00am January 05, 2024 5:37p m Virility For Men Discont inued [facility] er 2017 1:00am January 05, 2024 5:38p m Tamsulosin 0.4 mg capsule Discont inued 0.4 MG PO Daily January 05, 2024 12:00a m March 07, 2024 1:27p m Tadalafil 20 mg tablet Discont inued 20 MG PO Daily as needed for sexual activity January 05, 2024 12:00a m February 16, 2025 10:46 am Acetaminoph en (Tylenol Extra Strength) 500 mg tablet Active 1000 MG PO Every 6 hours as needed for pain January 05, 2024 12:00a m Unknown Blood Sugar Diagnostic strip Discont inued January 07, 2024 12:00a m February 17, 2024 11:13 am glucose checks twice daily Lancets misc Discont inued January 07, 2024 12:00a m February 17, 2024 11:14 am glucose checks twice daily Blood-Gluco se Meter kit Discont inued January 07, 2024 12:00a m February 17, 2024 11:13 am As Directed Alcohol Swabs pads, medicated Discont inued 1 PAD TOPICA L Twice daily January 07, 2024 12:00a m Octob er 2023 4:50p m Metoprolol Succinate 25 mg Tablet Extended Release 24 Hr Discont inued 25 MG PO Daily January 08, 2024 12:00a m Augus t 2023 10:11 am Sacubitril- Valsartan (Entresto) 24-26 mg Tablet Discont inued 1 TAB PO Twice daily January 08, 2024 12:00a m January 27, 2024 10:56 am Lorazepam 0.5 mg tablet Discont inued 1 TAB PO Daily November 13, 2023 1:00am November 13, 2023 11:34 am FreeTextSi tablet as needed Orally Once a day; Note: Source Status: Refill; Refills: 1; Qty: 30 Tablet; Provider: Deng Jose Tadalafil 10 mg tablet Discont inued 10 MG PO . NEEDED November 13, 2023 1:00am January 05, 2024 5:36p m FreeTextSi tablet as needed Orally; Note: Source Status: TakingPRN; Provider: Dr. Salcedo Albuterol Sulfate 90 mcg/actuati on HFA aerosol inhaler Discont inued 1 PUFF INHALA TION Every 4 hours as needed for shortness of breath or wheezing November 13, 2023 1:00am February 17, 2024 11:11 am FreeTextSi puff as needed Inhalation every 4 hrs; Note: Source Status: Taking; Refills: 1; Provider: Deng Jose Ferrous Sulfate 325 mg (65 mg iron) tablet Active 325 MG PO Daily November 13, 2023 1:00am FreeTextSi tablet Orally one time per week; Note: Source Status: TakingPRN; Provider: Deng Shirley ( ) Unknown Terazosin 5 mg capsule Discont inued 5 MG PO Daily at bedtime November 13, 2023 1:00am January 05, 2024 5:35p m FreeTextSi capsule at bedtime Orally Once a day; Note: Source Status: Taking; Provider: urology Niacin 1,000 mg tablet extended release 24 hr Discont inued 1000 MG PO Twice daily November 13, 2023 1:00am January 05, 2024 5:36p m Multivitami n (Multiple Vitamins) tablet Active 1 TAB PO Daily November 13, 2023 1:00am Unknown Fluticasone Propionate 50 mcg/actuati on spray,suspe nsion Active 1 SPRAY INTRAN OSWALDO Daily as needed for allergy symptoms November 13, 2023 1:00am FreeTextSi spray in each nostril Nasally Once a day; Note: Source Status: TakingPRN; Refills: 5; Provider: Deng Shirley Unknown Lorazepam 0.5 mg tablet Discont inued 0.5 MG PO Daily November 13, 2023 11:33a m November 13, 2023 11:46 am FreeTextSi tablet as needed Orally Once a day; Note: Source Status: Refill; Refills: 1; Qty: 30 Tablet; Provider: Deng Jose Lorazepam 0.5 mg tablet Discont inued 0.5 MG PO Daily as needed for anxiety November 13, 2023 11:46a m February 02, 2024 3:45p m Blood-Gluco se Meter (Onetouch Ultra2 Meter) [facility] [place] EACH .ROUTE .MEDSUPPLY 1 February 17, 2024 12:00a m As directed Lancets (Onetouch Delica Plus Lancet) 33 gauge [facility] Active gauge .ROUTE .MEDSUPPLY 100 February 17, 2024 12:00a m As directed Blood Sugar Diagnostic (Onetouch Ultra Test) strip Discont inued 0 .Route February 17, 2024 12:00a m [facility] 2023 1:23p m As directed Metformin 500 mg tablet extended release 24 hr Discont inued 500 MG PO Twice daily 180 February 17, 2024 5:21pm [facility] 2023 1:35p m Empaglifloz in (Jardiance) 10 mg tablet Discont inued 10 MG PO Daily January 27, 2024 12:00a m [facility] 2023 1:34p m Sacubitril- Valsartan (Entresto) 49-51 mg tablet Active 1 TAB PO Twice daily 60 January 27, 2024 12:00a m Unknown Blood Sugar Diagnostic (Onetouch Ultra Test) strip Active 0 .Route 200 2023 1:21pm As directed test blood sugar 2 times daily Empaglifloz in (Jardiance) 10 mg tablet Discont inued 10 MG PO Daily 90 90 2023 1:32pm [facility] 2023 3:24p m Metformin 500 mg tablet extended release 24 hr Discont inued 500 MG PO Twice daily 180 2023 1:35pm [facility] 2023 2:48p m Empaglifloz in (Jardiance) 10 mg tablet Active 0 .ROUTE .COMPLEX 90 Dece er 2023 2:48pm TAKE 1 TABLET BY MOUTH DAILY Unknown Metformin 500 mg tablet extended release 24 hr Discont inued 500 MG PO Twice daily 180 Decemb er 2023 2:48pm March 06, 2025 5:33p m Metformin 500 mg tablet extended release 24 hr Discont inued 500 MG PO Daily 90 January 14, 2024 12:00a m February 17, 2024 5:21p m Metoprolol Succinate 25 mg tablet extended release 24 hr Discont inued 12.5 MG PO Daily April 15, 2024 10:11a m February 16, 2025 11:00 am Aspirin 81 mg tablet Active 81 MG PO Daily February 16, 2025 12:00a m Unknown Lorazepam 0.5 mg tablet Active 0.5 MG PO Daily as needed for anxiety February 16, 2025 10:49a m Unknown Starch (Thickening ) (Instant Food Thickener) powder Discont inued EACH PO February 16, 2025 12:00a m March 06, 2025 1:02p m Pantoprazol e 40 mg tablet,surya yed release (DR/EC) Active 40 MG PO Daily February 16, 2025 12:00a m Unknown Oxycodone 5 mg tablet Discont inued 5 MG PO Every 8 hours as needed February 16, 2025 12:00a m March 06, 2025 1:01p m Warfarin 1 mg tablet Active 1 MG PO Daily February 16, 2025 12:00a m Unknown Immunizations Immunization Event Date Not Given Reason Dose Number [employer] Lot Number Vaccine Information Statement (VIS) Detail Administration Location COVID-19 mRNA, Comirnaty (Novinda) November 05, 2020 COVID-19 mRNA, Comirnaty (Novinda) November 27, 2020 COVID-19 mRNA, Comirnaty (Novinda) June 08, 2021 Quadrivalent Influenza (mdv) June 24, 2012 influenza, unspecified formulation April 12, 2013 influenza, unspecified formulation June 13, 2016 influenza, unspecified formulation June 11, 2017 influenza, unspecified formulation July 16, 2021 Pneumococcal Conjugate Vaccine, 13 valent October 23, 2017 Pneumococcal Conjugate Vaccine, 13 valent June 09, 2018 Pneumococcal Polysacc. Vaccine, 23 valent June 14, 2013 Pneumococcal Polysacc. Vaccine, 23 valent August 15, 2019 Quadrivalent Influenza May 18, 2020 Trivalent Influenza Vaccine June 09, 2018 Trivalent Influenza Vaccine June 02, 2019 Medical Equipment Device Date Implanted Device Details SEED BRACHYTX PD-103 NONSTRAND August 05 18 SEED BRACHYTX PD-103 NONSTRAND August 05 18 SEED BRACHYTX PD-103 NONSTRAND August 05 18 SEED BRACHYTX PD-103 NONSTRAND August 05 18 SEED BRACHYTX PD-103 NONSTRAND August 05 18 SEED BRACHYTX PD-103 NONSTRAND August 05 18 SEED BRACHYTX PD-103 NONSTRAND August 05 18 SEED BRACHYTX PD-103 NONSTRAND August 05 18 SEED BRACHYTX PD-103 NONSTRAND August 05 18 SEED BRACHYTX PD-103 NONSTRAND August 05 18 SEED BRACHYTX PD-103 NONSTRAND August 05 18 SEED BRACHYTX PD-103 NONSTRAND August 05 18 SEED BRACHYTX PD-103 NONSTRAND August 05 18 SEED BRACHYTX PD-103 NONSTRAND August 05 18 SEED BRACHYTX PD-103 NONSTRAND August 05 18 SEED BRACHYTX PD-103 NONSTRAND August 05 18 SEED BRACHYTX PD-103 NONSTRAND August 05 18 SEED BRACHYTX PD-103 NONSTRAND August 05 18 SEED BRACHYTX PD-103 NONSTRAND August 05 18 SEED BRACHYTX PD-103 NONSTRAND August 05 18 SEED BRACHYTX PD-103 NONSTRAND August 05 18 SEED BRACHYTX PD-103 NONSTRAND August 05 18 SEED BRACHYTX PD-103 NONSTRAND August 05 18 SEED BRACHYTX PD-103 NONSTRAND August 05 18 SEED BRACHYTX PD-103 NONSTRAND August 05 18 SEED BRACHYTX PD-103 NONSTRAND August 05 18 SEED BRACHYTX PD-103 NONSTRAND August 05 18 SEED BRACHYTX PD-103 NONSTRAND August 05 18 SEED BRACHYTX PD-103 STRANDED August 05 8 SEED BRACHYTX PD-103 STRANDED August 05 8 SEED BRACHYTX PD-103 STRANDED August 05 8 SEED BRACHYTX PD-103 STRANDED August 05 8 SEED BRACHYTX PD-103 STRANDED August 05 8 SEED BRACHYTX PD-103 STRANDED August 05 8 SEED BRACHYTX PD-103 STRANDED August 05 8 SEED BRACHYTX PD-103 STRANDED August 05 8 SEED BRACHYTX PD-103 STRANDED August 05 8 SEED BRACHYTX PD-103 STRANDED August 05 8 SEED BRACHYTX PD-103 STRANDED August 05 8 SEED BRACHYTX PD-103 STRANDED August 05 8 SEED BRACHYTX PD-103 STRANDED August 05 8 SEED BRACHYTX PD-103 STRANDED August 05 8 SEED BRACHYTX PD-103 STRANDED August 05 8 SEED BRACHYTX PD-103 STRANDED August 05 8 SEED BRACHYTX PD-103 STRANDED August 05 8 SEED BRACHYTX PD-103 STRANDED August 05 8 SEED BRACHYTX PD-103 STRANDED August 05 8 SEED BRACHYTX PD-103 STRANDED August 05 8 SEED BRACHYTX PD-103 STRANDED August 05 8 SEED BRACHYTX PD-103 STRANDED August 05 8 SEED BRACHYTX PD-103 STRANDED August 05 8 SEED BRACHYTX PD-103 STRANDED August 05 8 SEED BRACHYTX PD-103 STRANDED August 05 8 SEED BRACHYTX PD-103 STRANDED August 05 8 SEED BRACHYTX PD-103 STRANDED August 05 8 SEED BRACHYTX PD-103 STRANDED August 05 8 SEED BRACHYTX PD-103 STRANDED August 05 8 SEED BRACHYTX PD-103 STRANDED August 05 8 SEED BRACHYTX PD-103 STRANDED August 05 8 SEED BRACHYTX PD-103 STRANDED August 05 8 SEED BRACHYTX PD-103 STRANDED August 05 8 SEED BRACHYTX PD-103 STRANDED August 05 8 SEED BRACHYTX PD-103 STRANDED August 05 8 SEED BRACHYTX PD-103 STRANDED August 05 8 SEED BRACHYTX PD-103 STRANDED August 05 8 SEED BRACHYTX PD-103 STRANDED August 05 8 SEED BRACHYTX PD-103 STRANDED August 05 8 SEED BRACHYTX PD-103 STRANDED August 05 8 SEED BRACHYTX PD-103 STRANDED August 05 8 SEED BRACHYTX PD-103 STRANDED August 05 8 SEED BRACHYTX PD-103 STRANDED August 05 8 SEED BRACHYTX PD-103 STRANDED August 05 8 SEED BRACHYTX PD-103 STRANDED August 05 8 SEED BRACHYTX PD-103 STRANDED August 05 8 SEED BRACHYTX PD-103 STRANDED August 05 8 SEED BRACHYTX PD-103 STRANDED August 05 8 SEED BRACHYTX PD-103 STRANDED August 05 8 SEED BRACHYTX PD-103 STRANDED August 05 8 SEED BRACHYTX PD-103 STRANDED August 05 8 SEED BRACHYTX PD-103 STRANDED August 05 8 SEED BRACHYTX PD-103 STRANDED August 05 8 SEED BRACHYTX PD-103 STRANDED August 05 8 SEED BRACHYTX PD-103 STRANDED August 05 8 SEED BRACHYTX PD-103 STRANDED August 05 8 SEED BRACHYTX PD-103 STRANDED August 05 8 SEED BRACHYTX PD-103 STRANDED August 05 8 SEED BRACHYTX PD-103 STRANDED August 05 8 SEED BRACHYTX PD-103 STRANDED August 05 8 SEED BRACHYTX PD-103 STRANDED August 05 8 SEED BRACHYTX PD-103 STRANDED August 05 8 SEED BRACHYTX PD-103 STRANDED August 05 8 SEED BRACHYTX PD-103 STRANDED August 05 8 Relevant Diagnostic Tests and/or Laboratory Data Laboratory Results Test Collection Date/Time Result Date/Time Result Interpretation Reference Range Result Comment Performing Site Corrected White Blood Count February 16, 2025 11:16am February 16, 2025 1:58pm 9.7 10*3/uL 4.1-10.5 [facility] [id number] [address] [place] [address] Uncorrect ed WBC Count February 16, 2025 11:16am February 16, 2025 1:58pm 9.7 10*3/uL 4.1-10.5 [facility] [id number] [address] [facility] [address] Red Blood Count February 16, 2025 11:16am February 16, 2025 1:58pm 3.76 10*6/uL Below low normal 3.90-5.60 [facility] [id number] [address] [place] [address] Hemoglobi n February 16, 2025 11:16am February 16, 2025 1:58pm 12.2 g/dL Below low normal 13.0-17.0 [facility] [id number] [address] [facility] [address] Hematocri t February 16, 2025 11:16am February 16, 2025 1:58pm 36.4 % Below low normal 38.8-50.0 [facility] [id number] [address] [facility] [address] Mean Corpuscul ar Volume February 16, 2025 11:16am February 16, 2025 1:58pm 96.9 fL 83.5-101 [facility] [id number] [address] [facility] [address] Mean Corpuscul ar Hemoglobi n February 16, 2025 11:16am February 16, 2025 1:58pm 32.5 pg 27.5-35.2 [facility] [id number] [address] [facility] [address] Mean Corpuscul ar Hemoglobi n Concent February 16, 2025 11:16am February 16, 2025 1:58pm 33.5 g/dL 32.5-35.6 [facility] [id number] [address] [facility] [address] Red Cell Distribut ion Width February 16, 2025 11:16am February 16, 2025 1:58pm 16.6 % Above high normal 12.0-14.8 [facility] [id number] [address] [facility] [address] Platelet Count February 16, 2025 11:16am February 16, 2025 1:58pm 202 10*3/uL 150-450 [facility] [id number] [address] [facility] [address] Mean Platelet Volume February 16, 2025 11:16am February 16, 2025 1:58pm 9.6 fL 6.6-10.1 [facility] [id number] [address] [facility] [address] Neutrophi ls (%) (Auto) February 16, 2025 11:16am February 16, 2025 1:58pm 77.2 % . [facility] [id number] [address] [facility] [address] Lymphocyt es (%) (Auto) February 16, 2025 11:16am February 16, 2025 1:58pm 11.9 % . [facility] [id number] [address] [facility] [address] Monocytes (%) (Auto) February 16, 2025 11:16am February 16, 2025 1:58pm 6.1 % . [facility] [id number] [address] [facility] [address] Eosinophi ls (%) (Auto) February 16, 2025 11:16am February 16, 2025 1:58pm 4.2 % . [facility] [id number] [address] [facility] [address] Basophils (%) (Auto) February 16, 2025 11:16am February 16, 2025 1:58pm 0.6 % . [facility] [id number] [address] [facility] [address] Nucleated RBC Relative Count (auto) February 16, 2025 11:16am February 16, 2025 1:58pm 0.0 /100{WB C} 0-0.5 [facility] [id number] [address] [facility] [address] Neutrophi ls # (Auto) February 16, 2025 11:16am February 16, 2025 1:58pm 7.5 10*3/uL 1.8-7.7 [facility] [id number] [address] [place] [address] Lymphocyt es # (Auto) February 16, 2025 11:16am February 16, 2025 1:58pm 1.1 10*3/uL 1.00-4.8 [facility] [id number] [address] [place] [address] Monocytes # (Auto) February 16, 2025 11:16am February 16, 2025 1:58pm 0.6 10*3/uL 0.0-0.8 [facility] [id number] [address] [facility] [address] Eosinophi ls # (Auto) February 16, 2025 11:16am February 16, 2025 1:58pm 0.4 10*3/uL 0.0-0.45 [facility] [id number] [address] [place] [address] Basophils # (Auto) February 16, 2025 11:16am February 16, 2025 1:58pm 0.1 10*3/uL 0.0-0.2 [facility] [id number] [address] [facility] [address] Glucose Level February 16, 2025 11:16am February 16, 2025 2:56pm 102 mg/dL Above high normal 70-100 ADA recommended reference rangeRandom Glucose Reference Range is dependent on time and content of last meal. Glucose of more than 200 mg/dL in a nonstressed, ambulatory subject supports the diagnosis of Diabetes Mellitus. [facility] [id number] [address] [place] [id number] Blood Urea Nitrogen February 16, 2025 11:16am February 16, 2025 2:56pm 16 mg/dL 7-25 [facility] [id number] [address] [facility] [address] Creatinin e February 16, 2025 11:16am February 16, 2025 2:56pm 1.08 mg/dL 0.70-1.30 [facility] [id number] [address] [facility] [address] Estimated GFR (CKD-EPI) February 16, 2025 11:16am February 16, 2025 2:56pm > 60.0 mL/Min [facility] [id number] [address] [facility] [address] Sodium Level February 16, 2025 11:16am February 16, 2025 2:56pm 132 mmol/L Below low normal 136-145 [facility] [id number] [address] [facility] [address] Potassium Level February 16, 2025 11:16am February 16, 2025 2:56pm 4.6 mmol/L 3.5-5.1 [facility] [id number] [address] [facility] [address] Chloride Level February 16, 2025 11:16am February 16, 2025 2:56pm 95 mmol/L Below low normal 98-107 [facility] [id number] [address] [place] [id number] Carbon Dioxide Level February 16, 2025 11:16am February 16, 2025 2:56pm 32.4 mmol/L Above high normal 21.0-31.0 [facility] [id number] [address] [facility] [address] Anion Gap February 16, 2025 11:16am February 16, 2025 2:56pm 9.2 mEq/L 6.0-15.0 [facility] [id number] [address] [place] [address] Calcium Level February 16, 2025 11:16am February 16, 2025 2:56pm 9.2 mg/dL 8.6-10.3 [facility] [id number] [address] [place] [address] [id number] Total Protein February 16, 2025 11:16am February 16, 2025 2:56pm 6.6 g/dL 6.4-8.9 [facility] [id number] [address] [place] [address] 94713 Albumin February 16, 2025 11:16am February 16, 2025 2:56pm 4.2 g/dL 3.5-5.7 [facility] [id number] [address] [place] [address] 95496 Globulin February 16, 2025 11:16am February 16, 2025 2:56pm 2.4 g/dL [facility] [id number] [address] [place] [address] 16604 Albumin/G lobulin Ratio February 16, 2025 11:16am February 16, 2025 2:56pm 1.8 [facility] [id number] [address] [place] [address] 25741 Total Bilirubin February 16, 2025 11:16am February 16, 2025 2:56pm 0.4 mg/dL 0.3-1.0 [facility] [id number] [address] [place] [address] 67280 Aspartate Amino Transf (AST/SGOT ) February 16, 2025 11:16am February 16, 2025 2:56pm 12 U/L Below low normal 13-39 [facility] [id number] [address] [place] [address] 17286 Alanine Aminotran sferase (ALT/SGPT ) February 16, 2025 11:16am February 16, 2025 2:56pm 7 U/L 7-52 [facility] [id number] [address] [place] [address] 57442 Alkaline Phosphata se February 16, 2025 11:16am February 16, 2025 2:56pm 90 U/L 34-104 [facility] [id number] [address] [facility] [address] Pharmacy Creatinin e Clearance (Chem February 16, 2025 11:16am February 16, 2025 2:56pm N/A [facility] [id number] [address] [facility] [address] Urine Microalbu min mg/dl March 06, 2025 2:18pm March 06, 2025 6:32pm 2.7 mg/dL Above high normal 0.0-1.8 [facility] [id number] [address] [facility] [address] Urine Random Creatinin e March 06, 2025 2:18pm March 06, 2025 6:32pm 58.00 mg/dL No reference range established [facility] [id number] [address] [facility] [address] Urine Microalbu min/Creat inine Ratio March 06, 2025 2:18pm March 06, 2025 6:32pm 46.6 mg/g Above high normal 0.0-30.0 30-300 mg/g indicates an increased risk for diabetic nephropathy. Greater than 300 mg/g is consistent with clinical nephropathy. (Am. J. Kidney Disease 1995, 25:107) [facility] [id number] [address] [place] [address] 77163 Vital Signs Vital Reading Result Reference Range Collection Date/Time Height 71 [in_i] February 16, 2025 10:36am Weight 52.61 kg February 16, 2025 10:36am Body Temperature 96.9 [degF] 97.6-99.0 February 16, 2025 10:36am Heart Rate 56 /min 60-100 February 16, 2025 10:36am Respiratory rate 18 /min 12-24 February 16, 2025 10:36am Oxygen saturation by Pulse oximetry 99 % 95-100 February 16, 2025 10:3 6am BP Systolic 118 mm[Hg] 100-140 February 16, 2025 10:36am BP Diastolic 78 mm[Hg] 60-100 February 16, 2025 10:36am BMI (Body Mass Index) 16.2 kg/m2 February 052024 10:36am Height 71 [in_i] March 06, 2025 12:52pm Weight 50.40 kg March 06, 2025 12:52pm Heart Rate 62 /min 60-100 March 06, 2025 12:52pm Respiratory rate 18 /min 12-March 06, 2025 12:52pm Oxygen saturation by Pulse oximetry 98 % 95-100 March 06, 2025 12:5 2pm BP Systolic 110 mm[Hg] 100-140 March 06, 2025 12:52pm BP Diastolic 70 mm[Hg] 60-100 March 06, 2025 12:52pm BMI (Body Mass Index) 15.5 kg/m2 February 072024 12:52pm Advance Directives Advance Directive Response Recorded Date/ Time Advance Directives No October 11:32am Insurance Providers Guarantor Corbin Zendejas Address [address] [place] [id number] Contact Info. Home Phone: Payer Policy Id Subscriber's Name Subscriber Id Effectiv e Date Expiration Date Medicare [id number] Corbin Zendejas [id number] Encounters Encounter Location(s) Arrival/Admit Date Discharge/Depart Date Provider(s) Non-patient / Non-visit -[facility] January 12, 2025 11:46am Nancy Tatum Non-patient / Non-visit -[facility] January 12, 2025 12:10pm Nancy Tatum Departed Physician/Prov ider Office Visit -[facility] February 16, 2025 10:24am February 16, 2025 10:53am Casper Vilchis DO Departed Clinical -[facility] February 16, 2025 11:07am February 16, 2025 11:08am Casper Vilchis DO Non-patient / Non-visit -[facility] February 17, 2025 9:32am Nancy Tatum Departed Physician/Prov ider Office Visit -[facility] March 06, 2025 12:49pm March 06, 2025 2:05pm Isabel Quezada APRN [facility]art [facility] March 06, 2025 2:19pm March 06, 2025 2:20pm Isabel C Scally , CUSTOMER ADVISOR Recent Diagnosis Onset Date Admit Date Ascending aortic aneurysm Unknown February 052024 10:24am KIM (generalized anxiety disorder) Unknown February 16, 2025 10:24am H/O mechanical aortic valve replacement Unknown February 16, 2025 10:24am Abnormal stool test Unknown February 16, 10:24am Type 2 diabetes mellitus wit h other circulatory complications Unknown February 16, 2025 10:24am Diabetes mellitus type 2 in nonobese Unknown March 06, 2025 12:49pm Generalized weakness Unknown March 06, 2025 12:49pm Heart failure with mildly re duced ejection fraction (HFmrEF) Unknown March 06, 2025 12:49pm Hyperlipidemia, mixed Unknown March 06, 2025 12:49pm Hypertension Unknown March 06, 2025 12:49pm Type 2 diabetes mellitus with hyperglycemia Unkn own March 06, 2025 12:49pm Assessments Diagnosis Onset Date Resolution Status Admit Date Ascending aortic aneurysm acute February 16, 2025 10:24am KIM (generalized anxiety disorder) acute February 16, 2025 10:24am H/O mechanical aortic valve replacement acute February 16, 2025 10:24am Abnormal stool test noneactive February 16, 2025 10:24am Type 2 diabetes mellitus wit h other circulatory complications noneactive February 16, 2025 10:24am Diabetes mellitus type 2 in nonobese acute March 06, 2025 12:49pm Generalized weakness acute March 06, 2025 12:49pm Heart failure with mildly reduced ejection fraction (HFmrEF) acute March 06, 2025 12:49pm Hyperlipidemia, mixed acute Robbi 2024 12:49pm Hypertension acute March 06 12:49pm Type 2 diabetes mellitus wit h hyperglycemia acute March 06, 2025 12:49pm Plan of Treatment Author Bernadette [facility] Authored March 06, 2025 7:07 am Brought hand written blood g lucose logs. Scanned to chart. Range from low of 91 to 146 since beginning of August Meter: Again did not bring blood glucose meter to appointment today, 05/26/2024. Reporting blood glucose lowest to be 110 per his recollection and highest to be 123, averaging in the 120s most checks daily. Encouraged to bring to all appointments ASSESSMENT: 1. Controlled, a Type 2 diabetes with A1c of 5.9% was 5.7%, 8.1%, 9.8 %. Current diabetes regime: Metformin 500 mg twice daily, Jardiance 10 mg po daily. Checks BG once per day. Sees cardiology Joaquin locally 2. Blood glucose levels have remained stable, tolerating current medications continue Metformin to 500 mg twice daily Continue Jardiance 10 mg p.o. daily, cautious escalation due to low blood pressure. Concomitant benefit for heart failure, can consider escalation based if Cardiology would recommend for concomitant HF, would likely necessitate adjustment of BP meds Lipids ordered BP low today, asymptomatic. UMIC yearly, WNL Prescription requests: None RTC 6 mos 3. Patient is alert, oriented and receptive to making changes or counseling. Notes: Seen for an assessment of current glucose pattern, changes in treatment plan, counseling and coordination of care related to diabetes, risks, and benefits of treatment, medications, side effects. Given handouts to reinforce concepts reviewed during counseling, see scanned notes. TOPICS REVIEWED: 1. Time was spent reviewing: a. Basic concepts of diabetes, progressive beta cell and blood glucose control. The goal is fasting blood glucose of 90-130mg. The goal is to hold the blood glucose level steady meal to meal. b. Nutrition: Concepts of healthy diet, encouraged to decrease saturated fat in diet and increase non-starchy vegetables and fruits in diet. BMI: Pt. needs to select one small change to decrease caloric intake or increase physical activity to help decrease weight. c. Not on insulin, if hypoglycemia symptoms, can consider low carbohydrate snack to reduce symptoms. Blood glucose should be 100 mg/dl or higher when driving. d. ADA glucose goals for age and medical complexity reviewed e. Patient questions addressed 2. Activity/exercise: Encouraged to start any form of physical activity. Start low level and increase slowly to a minimal goal of 150 minutes/week. Limit activity to what is allowed by other issues such as cardiac, pulmonary or orthopedic restrictions. 3. Standards of care: Reminded to have an annual dilated eye exam, A1C every 3 months, urine testing for microalbumin once/year, check feet daily and report any cuts or sores that do not appear to be healing. 4. Meter: Plan to check blood glucose: Please check blood glucose levels 4 times/day. Back to back meals reveal effectiveness of bolus dosing. The blood glucose data is used to determine insulin doses and confirm symptoms for hypoglycemia and hyperglycemia. 5. [facility]. Contact office if any issues or concerns with patterns of hypoglycemia, hyperglycemia, or diabetes medication issues. Author Casper Vilchis [facility] Authored February 16, 2025 10:5 9am He continues with the DM off ice He will repeat lab work today on his way out of the building, we will call with results. Referral sent for colonoscopy to be done in [place] Continue current treatment, OARRS reviewed Future Tests Future scheduled test information is unavailable Pending Tests Pending diagnostic test information is unavailable Future Visits Future appointment information is unavailable Referrals to Other Providers Reason for Referral Referral Start Date Provider Provider Contact Information Provider Address R19.5 - Other fecal abnormalities February 16, 2025 Anton Garcia , DO Work Phone: [phone] [facility] [id number] Future Procedures Procedure Name Ordered Date Scheduled Date Saturnino Guptakyleigh Flako,U March 06, 2025 1:28pm Future Medications Future medication information is unavailable Patient Instructions Patient instructions are unavailable
--- OUTSIDE RECORDS SUMMARY | 2025-03-07 14:30 | XMS_ITS | Encounter Summary ---
Author Organization [facility] [employer] [facility] tem Address [id number] [address] [place] [address] Care Team Providers Care Section Leader Screen Printing Name Role Phone Casper Vilchis DO Primary Care Provider Destiney chavis Encounter Details Date Type Department Care Team (Latest Contact Info) Description 03/07/2025 2:30 PM EDT Follow Up Anticoagulation [facility] - Pharmacy Medication Management [address] [place] [address] long-term (current) use of anticoagulants [Z79.01] (Primary Dx); H/O aortic valve replacement--1967 ball in cage Social History Tobacco Use Types Packs/Day Years Used Date Smoking Tobacco: Former Cigarettes 2 2 0 12/07/1977 - 12/08/1979 Smokeless Tobacco: Never Alcohol Use Standard Drinks/Week Comments Not Currently 0 (1 standard drink = 0.6 oz pur e alcohol) [facility] Utilities Answer Date Recorded In the past 12 months has e [employer], gas, oil, or water [employer] threatened to shut off services in your [...] this encounter Progress Notes * Shazia Jung, [facility] - 03/07/2025 2:30 PM EDT 15 minute [id number] follow-up anticoagulation appointment. INR performed in office per protocol. INR 6.2 (goal range: 2.5-3.5). Patient reports: Taking warfarin dosing as documented. Missed or extra doses of warfarin: YES Held as instructed Changes to medications: No Changes to lifestyle (diet / alcohol / smoking / activity): No Recent emergency department visit / hospitalization / health changes / new contraindication to current anticoagulant: No Signs/symptoms of bruising/bleeding or clotting or any intolerable adverse events: No Upcoming procedures: No Anticoagulant prescription needed: No Seen referring provider in the last year Duration of therapy reviewed Assessment: INR is higher despite dose decrease. WE will hold x3, then reduce to 5 mg daily (17% dose reduction). Safety check on Thursday due to holiday and patient mobility. Plan: Patient instructed to hold warfarin x3, then decrease to 5 mg daily. Check INR in 5 day(s). Patient verbalizes understanding of anticoagulant dosing instructions and information discussed. Dosing regimen, counseling, and follow-up appointment were provided to the patient. Patient reminded to call with questions or any medication changes. Patient instructed to seek medical attention if anymajor bleeding/bleeding that persists or worsens. Shazia Jung [facility] 03/07/25 1508 documented in this encounter Plan of Treatment Upcoming Encounters Date Type Department Care Team (Late st Contact Info) Description 03/24/2025 1:30 PM EDT Follow Up Anticoagulation [facility] - Pharmacy Medication Management [address] [place] [address] 08/14/2025 2:30 PM EST Office Visit [facility] Physicians Cardiology [address] [place] [id number] Robert Jade MD [address] [place] [address] documented as of this encounter Goals Goal Patient Goal Type Associated Problems Recent Progress Patient-Stated? Author <enter goal here> General Yes Viola Gamble, CINDY Note: Evaluation of progress towards goal: patient progressing toward safe discharge home. 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 [Z79.01] H/O aortic valve replacement--1966 ball in cage documented in this encounter Results * (ABNORMAL) POCT Protime / INR (03/07/2025 2:36 PM EDT) INR 6.2(A) 0.8 - 1.2 MANUALLY TRANSCRIBED RESULTS 03/07/2025 2:36 PM EDT [facility] Medication Management POINT O F CARE TEST ORDERABLES Final Result MANUALLY TRANSCRIBED RESULTS documented in this encounter Visit Diagnoses Diagnosis long-term (current) use of anticoagulants [Z79.01]- Primary Long-term (current) use of anticoagulants H/O aortic valve replacement--1966 ball in cage documented in this encounter Care Teams Section Leader Screen Printing Relationship Specialty Start Date End Date Casper Vilchis DO PCP - General Family Medicine 11/07/24 Casper Vilchis DO [address] [place] [address] Provider Family Medicine 11/14/24 documented as of this encounter
--- OUTSIDE RECORDS SUMMARY | 2025-03-13 14:30 | XMS_ITS | Encounter Summary ---
Author Organization [facility] [employer] [facility] tem Address [id number] [address] [place] [address] Care Team Providers Care Toe Puller Name Role Phone Casper Vilchis DO Primary Care Provider Destiney chavis Encounter Details Date Type Department Care Team (Latest Contact Info) Description 03/13/2025 2:30 PM EDT Follow Up Anticoagulation [facility] - Pharmacy Medication Management [address] [place] [address] group home (current) use of anticoagulants [Z79.01] (Primary Dx); H/O aortic valve replacement--1967 ball in cage Social History Tobacco Use Types Packs/Day Years Used Date Smoking Tobacco: Former Cigarettes 2 2 0 12/07/1977 - 12/08/1979 Smokeless Tobacco: Never Alcohol Use Standard Drinks/Week Comments Not Currently 0 (1 standard drink = 0.6 oz pur e alcohol) [facility] Utilities Answer Date Recorded In the past 12 months has e [employer], gas, oil, or water [employer] threatened to shut off services in your [...] this encounter Progress Notes * Shazia Jung, [facility] - 03/13/2025 2:30 PM EDT 15 minute [id number] follow-up anticoagulation appointment. INR performed in office per protocol. INR 2.5 (goal range: 2.5-3.5). Patient reports: Taking warfarin dosing as documented. Missed or extra doses of warfarin: YES Held x3 as instructed and reduced Changes to medications: No Changes to lifestyle (diet / alcohol / smoking / activity): No Recent emergency department visit / hospitalization / health changes / new contraindication to current anticoagulant: No Signs/symptoms of bruising/bleeding or clotting or any intolerable adverse events: No Upcoming procedures: No Anticoagulant prescription needed: No Seen referring provider in the last year Duration of therapy reviewed Assessment: INR has returned to range. Patient has had 22.5 mg in a week. We will target 30 mg/weekwhich is an additional 15% dose reduction bringing total dose reduction to 20% since initial elevation Plan: Patient instructed to decrease to warfarin 2.5 mg Wed/Thu and 5 mg AOD. Check INR in 10 day(s). Patient verbalizes understanding of anticoagulant dosing instructions and information discussed. Dosing regimen, counseling, and follow-up appointment were provided to the patient. Patient reminded to call with questions or any medication changes. Patient instructed to seek medical attention if anymajor bleeding/bleeding that persists or worsens. Shazia Jung Eileen 03/13/25 1435 documented in this encounter Plan of Treatment Upcoming Encounters Date Type Department Care Team (Late st Contact Info) Description 03/24/2025 1:30 PM EDT Follow Up Anticoagulation [facility] - Pharmacy Medication Management [address] [place] [address] 08/14/2025 2:30 PM EST Office Visit [facility] Physicians Cardiology [address] [place] [address] Robert Jade MD [address] [place] [address] documented as of this encounter Goals Goal Patient Goal Type Associated Problems Recent Progress Patient-Stated? Author <enter goal here> General Yes Viola Gamble, CINDY Note: Evaluation of progress towards goal: patient progressing toward safe discharge home. 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 [Z79.01] H/O aortic valve replacement--1966 ball in cage documented in this encounter Results * (ABNORMAL) POCT Protime / INR (03/13/2025 2:29 PM EDT) INR 2.5(A) 0.8 - 1.2 MANUALLY TRANSCRIBED RESULTS 03/13/2025 2:29 PM EDT [facility] Medication Management POINT O F CARE TEST ORDERABLES Final Result MANUALLY TRANSCRIBED RESULTS documented in this encounter Visit Diagnoses Diagnosis 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
[2025-03-14] VITALS (20 sets, daily range): BP systolic 108–153; BP diastolic 62–97; PULSE 61–69; TEMP 36.5; O2SAT 95–98; BMI 15.3
--- OUTSIDE RECORDS SUMMARY | 2025-03-14 09:17 | XMS_ITS ---
Author Organization OHIP Support Name Relationship Address Phone FORPATRICK MOLINA Spouse [address] [place] [address] + FORJAKOBER, PATRICK Spouse [address] [place] [address] + FORJAKOBER, PATRICK Spouse [address] [place] [address] + ForTessa molina Spouse [address] [place] [address] + FORJAKOBER, PATRICK Spouse [address] [place] [address] + FORJAKOBER, PATRICK Spouse [address] [place] [address] + FORJAKOBER, PATRICK Spouse [address] [place] [address] + ForTessa molina Spouse [address] [place] [address] + FORJAKOBER, PATRICK Spouse [address] [place] [address] + FORJAKOBER, PATRICK Spouse [address] [place] [address] + FORJAKOBER, PATRICK Spouse [address] [place] [address] + FORJAKOBER, PATRICK Spouse [address] [place] [address] + FORWALDER, PATRICK Spouse [address] [place] [address] + FORJAKOBER, PATRICK Spouse [address] [place] [address] + FORWALDER, PATRICK Spouse [address] [place] [address] + FORWALDER, PATRICK Spouse [address] [place] [address] + FORWALDER, PATRICK Spouse [address] [place] [address] + FORWALDER, PATRICK Spouse [address] [place] [address] + FORWALDER, PATRICK Spouse [address] [place] [address] + FORWALDER, PATRICK Spouse [address] [place] [address] + FORWALDER, PATRICK Spouse [address] [place] [address] + FORWALDER, PATRICK Spouse [address] [place] [address] + FORWALDER, PATRICK Spouse [address] [place] [address] + FORWALDER, PATRICK Spouse [address] [place] [address] + FORWALDER, PATRICK Spouse [address] [place] [address] + FORWALDER, PATRICK Spouse [address] [place] [address] + FORWALDER, PATRICK Spouse [address] [place] [address] + FORWALDER, PATRICK Spouse [address] [place] [address] + FORWALDER, PATRICK Spouse [address] [place] [address] + Forwalder, Daylinnce Spouse [address] [place] [address] + FORWALDER, PATRICK Spouse [address] [place] [address] + Forwalder, Florance Spouse [address] [place] [address] + FORWALDER, PATRICK Spouse [address] [place] [address] + FORWALDER, PATRICK Spouse [address] [place] [address] + FORWALDER, PATRICK Spouse [address] [place] [address] + FORWALDER, PATRICK Spouse [address] [place] [address] + FORWALDER, PATRICK Spouse [address] [place] [address] + FORWALDER, PATRICK Spouse [address] [place] [address] + FORWALDER, PATRICK Spouse [address] [place] [address] + FORWALDER, PATRICK Spouse [address] [place] [address] + FORWALDER, PATRICK Spouse [address] [place] [address] + FORWALDER, PATRICK Spouse [address] [place] [address] + FORWALDER, PATRICK Spouse [address] [place] [address] + Care Team Providers Care Greige Goods Examiner Name Role Phone BEBE MEDEIROS Attending Unavailable BOOKER VILLEDA R Referring Unavailable VILLEDA, BOOKER R Primary [...] VILLEDA, BOOKER R Primary Care Unavailable BEBE MEDEIROS Attending Unavailable RONAL, BOOKER R Referring Unavailable VILLEDA, BOOKER R Primary Care Unavailable SERVICE, JOBST Referring Unavailable VILLEDA, BOOKER R Primary Care Unavailable SERVICE, JOBST Referring Unavailable VILLEDA, BOOKER R Primary Care [facility] Referring Unavailable VILLEDA, BOOKER R Primary Care Unavailable MEDICATION MANAGEMENT, [facility] Referr ing Unavailable VILLEDA, BOOKER R Primary Care Unavailable MEDICATION MANAGEMENT, [facility] Referr ing Unavailable VILLEDA, BOOKER R Primary Care Unavailable ISABEL MAZA Referring Unavailable VILLEDA, BOOKER R Primary Care Unavailable MEDICATION MANAGEMENT, [facility] Referr ing Unavailable VILLDEA, BOOKER R Primary Care Unavailable MICI, NIXON Attending Unavailable VILLEDA, BOOKER R Referring Unavailable VILLEDA, BOOKER R Primary Care Unavailable MICI, NIXON Referring Unavailable VILLEDA, BOOEKR R Primary Care Unavailable MICI, NIXON Attending Unavailable MICI, NIXON Referring Unavailable VILLEDA, BOOKER R Primary Care Unavailable MICI, NIXON Attending Unavailable MICI, NIXON Referring Unavailable VILLEDA, BOOKER R Primary Care Unavailable MARCO, KO Haddad Attending Unavailab le MICI, NIXON Referring Unavailable VILLEDA, BOOKER R [...] VILLEDA, BOOKER R Primary Care Unavailable BEBE MEDEIROS Consulting GEORGINA Quintana Consulting Unavailable KO LARA Referring Unavailab le RONAL, BOOKER R Primary Care Unavailable CHRISTINA HOWARD Attending Unavailable VILLEDA, BOOKER R Primary Care Unavailable CHRISTINA HOWARD Attending Unavailable VILLEDA, BOOKER R Primary Care Unavailable VILLEDA, BOOKER R Referring Unavailable VILLEDA, BOOKER R Primary Care Unavailable ROSEMARY TATE Attending Unavailable NOHEMI LU Referring Unavailable VILLEDA, BOOKER R Primary Care Unavailable AUGUST REEVES Attending Unavailable RONAL, BOOKER R Referring Unavailable VILLEDA, BOOKER R Primary Care Unavailable AUGUST REEVES Referring Unavailable VILLEDA, BOOKER R Primary Care Unavailable VILLEDA, BOOKER R Referring Unavailable VILLEDA, BOOKER R Primary Care Unavailable MEDICATION MANAGEMENT, [facility] Referr ing Unavailable VILLEDA, BOOKER R Primary Care Unavailable MEDICATION MANAGEMENT, [facility] Referr ing Unavailable VILLEDA, BOOKER R Primary Care Unavailable LUKE SANDOVAL Attending Unavailable RONAL, BOOKER R Referring Unavailable VILLEDA, BOOKER Jose Primary Care Unavailable MEDICATION MANAGEMENT, [facility] Referr ing Unavailable VILLEDA, BOOKER R Primary Care Unavailable MEDICATION MANAGEMENT, [facility] Referr ing Unavailable VILLEDA, BOOKER R Primary Care Unavailable AUGUST REEVES S Referring Unavailable VILLEDA, BOOKER Jose Primary Care Unavailable SHANNAN HANKINS Attending Unavailable Zeferino RAPP Attending Unavailable RAPP, Zeferino Jose Referring Unavailable RAPP, Zeferino R Admitting Unavailable NON STAFF Primary Care Unavailable Isabel Maza Admitting Unavailable Isabel Maza Attending Unavailable Ronal, Booker Jose Admitting Unavailable Villeda, Booker Jose Primary Care Unavailable Villeda, Booker Jose Attending Unavailable Villeda, Booker R Admitting Unavailable Villeda, Booker Jose Primary Care Unavailable Villeda, Booker Jose Attending Unavailable Ronal, Booker Jose Primary Care Unavailable Asaad, Imad Admitting Unavailable Asaad, Imad Attending Unavailable BOOKER VILLEDA Primary Care Unavailabl e Cande CARSON Attending Unavailable BOOKER VILLEDA Primary Care Unavailabl e Purpose PROBLEMS DATE TYPE CONDITION / CODE ATTENDING STATUS [facility] 03/06/2025 Unknown Type 2 diabetes mellitus without complications / E11.9(ICD-10) Isabel Maza [facility] 02/02/2025 Unknown Other postproced ural complications and disorders of the circulatory system, not elsewhere classified / I97.89(ICD-10) ROBERTCHAITANYAAUGUST [facility] 02/02/2025 Unknown Unspecified atri al fibrillation / I48.91(ICD-10) ADOLFOAUGUST RAM S [facility] 01/16/2025 Unknown Encounter for ot her specified aftercare / Z51.89(ICD-10) ROSEMARY TATE [facility] 01/10/[address], unspecified / D68.9(ICD-10) CHRISTINA HOWARD [facility] 01/03/2025 Unknown Aneurysm of the ascending aorta, without rupture / I71.21(ICD-10) KO LARA [facility] 01/03/2025 Unknown Other specified postprocedural states / Z98.890(ICD-10) KO LARA [facility] 01/03/2025 Unknown Personal history of other diseases of the circulatory system / Z86.79(ICD-10) KO LARA [facility] 01/03/2025 Unknown Weakness / R53.1(ICD-10) KO LARA [facility] 01/03/2025 Unknown AORTIC ANEURYSM / UNK(Unknown) KO LARA [facility] 12/26/2024 Unknown Other specified symptoms and signs involving the circulatory and respiratory systems / R09.89(ICD-10) [facility] 12/26/2024 Unknown Unspecified symp toms and signs involving the genitourinary system / R39.9(ICD-10) [facility] 12/26/2024 Unknown Impaired glucose tolerance (oral) / R73.02(ICD-10) [facility] 12/26/2024 Unknown Shortness of adolfo ath / R06.02(ICD-10) [facility] 11/14/2024 Unknown Chronic systolic (congestive) heart failure / I50.22(ICD-10) [facility] 11/14/2024 Unknown Thoracic aortic ectasia / I77.810(ICD-10) [facility]07[facility]24 Unknown Type 2 diabetes mellitus with hyperglycemia / E11.65(ICD-10) [facility] 11/07/2024 Unknown Mixed hyperlipid emia / E78.2(ICD-10) [facility] 08/19/2024 Unknown Other fatigue / R53.83(ICD-10) Booker Villeda [facility] 12/16/2016 Unknown FPC (curre nt) use of anticoagulants / Z79.01(ICD-10) [facility] 03/21/2024 Unknown Presence of pros thetic heart valve / Z95.2(ICD-10) BEBE MEDEIROS [facility] 03/21/2024 Unknown Follow-up / FREETEXT(AOF) BEBE MEDEIROS [facility] PROCEDURES No Procedure Records Found VITAL SIGNS No Vital Signs Records Found RESULTS MICROALB CREAT RATIO,U Collected: 03/06/2025 2:18 PM Status: F Source: [facility] TYPE CODE TESTS RESULT OUT OF RANGE REFERENCE UNITS LAB UMAT Microalbumin , Urine 2.7 High 0.0-1.8 mg/dL LAB UCREA Creatinine, Urine (Random) 58.00 mg/dL Result Comment: No reference range established LAB MACREATRATIO Microalbumin /Creatinine Ratio 46.6 High 0.0-30.0 mg/g Result Comment: 30-300 mg/g indicates an increased risk for diabetic nephropathy. Greater than 300 mg/g is consistent with clinical nephropathy. (Am. J. Kidney Disease 1995, 25:107) PERFORMED BY: [place] [address] PATHOLOGIST PSYCHIATRIC SPECIALIST VINNIE VILLANUEVA M.D. Performed By: #### URMACBRIANA T #### [address] COMPLETE BLOOD COUNT AUTO DIFF Collected: 02/16/2025 11:16 AM Status: F Source: [facility] TYPE CODE TESTS RESULT OUT OF RANGE REFERENCE UNITS LAB WBC White Blood Count 9.7 Normal 4.1-10.5 10*3/uL LAB UNWBC Uncorrected WBC 9.7 Normal 4.1-10.5 10*3/uL LAB RBC Red Blood Count 3.76 Low 3.90-5.60 10*6/u L LAB HGB Hemoglobin 12.2 Low 13.0-17.0 g/dL LAB HCT Hematocrit 36.4 Low 38.8-50.0 % LAB MCV Mean Corpuscular Volume 96.9 Normal 83.5-101 fL LAB MCH Mean Corpuscular Hemoglobin 32.5 Normal 27.5-35.2 pg LAB MCHC Mean Corpuscular HGB Conc 33.5 Normal 32.5-35.6 g/dL LAB RDW Red Cell Distribution Width 16.6 High 12.0-14.8 % LAB PLT Platelet Count 202 Normal 150-450 10*3/uL LAB MPV Mean Platelet Volume 9.6 Normal 6.6-10.1 fL LAB NE% Neutrophils % (Auto) 77.2 . % LAB LY% Lymphocytes % (Auto) 11.9 . % LAB MO% Monocytes % (Auto) 6.1 . % LAB EO% Eosinophils % (Auto) 4.2 . % LAB BA% Basophils % (Auto) 0.6 . % LAB NRBC% NRBC% 0.0 Normal 0-0.5 /100{WBC} LAB NE# Neutrophils # (Auto) 7.5 Normal 1.8-7.7 10*3/uL LAB LY# Lymphocytes # (Auto) 1.1 Normal 1.00-4.8 10*3/uL LAB MO# Monocytes # (Auto) 0.6 Normal 0.0-0.8 10*3/uL LAB EO# Eosinophils # (Auto) 0.4 Normal 0.0-0.45 10*3/uL LAB BA# Basophils # (Auto) 0.1 Normal 0.0-0.2 10*3/uL Result Comment: PERFORMED BY : [place] [address] PATHOLOGIST PSYCHIATRIC SPECIALIST VINNIE VILLANUEVA M.D. Performed By: #### CBC, CMP #### [address] COMPREHENSIVE METABOLIC PANEL Collected: 02/16/2025 1 1:16 AM Status: F Source: [facility] TYPE CODE TESTS RESULT OUT OF RANGE REFERENCE UNITS LAB GLU Glucose 102 High 70-100 mg/dL Result Comment: Random Gluco se Reference Range is dependent on time and content of last meal. Glucose of more than 200 mg/dL in a nonstressed, ambulatory subject supports the diagnosis of Diabetes Mellitus. ADA recommended reference range LAB BUN Blood Urea Nitrogen 16 Normal 7-25 mg/d L LAB CREATT Creatinine 1.08 Normal 0.70-1.30 mg/dL LAB GFReNR Estimated GFR >60.0 mL/Min LAB NA Sodium 132 Low 136-145 mmol/L LAB K Potassium 4.6 Normal 3.5-5.1 mmol/L LAB CL Chloride 95 Low 98-107 mmol/L LAB CO2 Carbon Dioxide 32.4 High 21.0-31.0 mmol/L LAB GAP Anion Gap 9.2 Normal 6.0-15.0 meq/L LAB CA Calcium 9.2 Normal 8.6-10.3 mg/dL LAB TP Total Protein 6.6 Normal 6.4-8.9 g/dL LAB ALB Albumin Level 4.2 Normal 3.5-5.7 g/dL LAB GLOB Globulin 2.4 g/dL LAB AGRATIO Albumin/Globulin Ratio 1.8 LAB BILIT Bilirubin,Total 0.4 Normal 0.3-1.0 mg/dL LAB AST Aspartate Amino Transferase 12 Low 13-39 U/L LAB ALT Alanine Aminotransferase 7 Normal 7-52 U/L LAB ALP Alkaline Phosphatase 90 Normal 34-104 U/L Result Comment: PERFORMED BY : [place] [address] PATHOLOGIST PSYCHIATRIC SPECIALIST VINNIE VILLANUEVA M.D. Performed By: #### CBC, CMP #### [facility] [address] [place] [address] BASIC METABOLIC PANEL Collected: 2024 11:21 AM Status: COMPLETED Source: [facility] TYPE CODE TESTS RESULT OUT OF RANGE REFERENCE UNITS LAB NA SODIUM 138 134-146 mmol/L LAB K POTASSIUM 4.1 3.5-5.0 mmol/L LAB CL CHLORIDE 98 98-109 mmol/L LAB CO2 CARBON DIOXIDE 32 22-32 mmol/L LAB AGAP ANION GAP 8 5-15 mmol/L LAB BUN BLOOD UREA NITROGEN 17 5-27 mg/dL LAB CRET CREATININE 1.10 0.60-1.30 mg/dL Result Comment: METHOD TRACE ABLE TO IDMS STANDARD LAB GLU GLUCOSE 114 High 65-99 mg/dL LAB CA CALCIUM 9.5 8.5-10.5 mg/dL LAB EGFR EGFR (CKD-EPI) NON-RACE DEPENDENT 68 >=60 ml/min/1. 73sq.m Result Comment: Reported eGF R is based on the CKD-EPI 2020 equation that does not use a race coefficient. Performed By: #### BMP #### [facility] ([facility]) [address] [place] [address] VIR PROTIME AND INR Collected: 12:23 PM Status: COMPLETED Source: [facility] TYPE CODE TESTS RESULT OUT OF RANGE REFERENCE UNITS LAB PROX PROTIME 16.9 High 9.8-13.2 sec LAB INR INR 1.5 High 0.9-1.2 NA Performed By: #### PINR #### [facility] ([facility]) [address] [place] [address] VIR MAGNESIUM Collected: 12:23 PM Status: COMPLETED Source: [facility] TYPE CODE TESTS RESULT OUT OF RANGE REFERENCE UNITS LAB MG MAGNESIUM 1.9 1.8-2.6 mg/dL Performed By: #### MG #### [facility] ([facility]) [address] [place] [address] VIR BASIC METABOLIC PANEL Collected: 2024 12:23 PM Status: COMPLETED Source: [facility] TYPE CODE TESTS RESULT OUT OF RANGE REFERENCE UNITS LAB NA SODIUM 136 134-146 mmol/L LAB K POTASSIUM 3.7 3.5-5.0 mmol/L LAB CL CHLORIDE 98 98-109 mmol/L LAB CO2 CARBON DIOXIDE 26 22-32 mmol/L LAB AGAP ANION GAP 12 5-15 mmol/L LAB BUN BLOOD UREA NITROGEN 15 5-27 mg/dL LAB CRET CREATININE 0.98 0.60-1.30 mg/dL Result Comment: METHOD TRACE ABLE TO IDMS STANDARD LAB GLU GLUCOSE 109 High 65-99 mg/dL LAB CA CALCIUM 8.7 8.5-10.5 mg/dL LAB EGFR EGFR (CKD-EPI) NON-RACE DEPENDENT 78 >=60 ml/min/1. 73sq.m Result Comment: Reported eGF R is based on the CKD-EPI 2020 equation that does not use a race coefficient. Performed By: #### BMP #### [facility] ([facility]) [address] [place] [address] [place] [address] VIR CBC (NO DIFF) Collected: 12:23 PM Status: COMPLETED Source: [facility] TYPE CODE TESTS RESULT OUT OF RANGE REFERENCE UNITS LAB WBC WBC 12.2 High 4-11 x10E9/L LAB RBC RBC COUNT 2.89 Low 4.1-5.7 X10E12/L LAB HGB HEMOGLOBIN 9.1 Low 13-17 g/dL LAB HCT HEMATOCRIT 27.8 Low 39-50 % LAB MCV MCV 96 80-100 fL LAB MCH MCH 31.6 27-34 pg LAB MCHC MCHC 32.9 32-36 g/dL LAB RDW RDW 16.3 High 11.5-15 % LAB PLTC PLATELET COUNT 266 150-450 X10E9/L LAB MPV MPV 8.9 7-12 fL Performed By: #### CBC #### [facility]) [address] [place] [address] VIR PROTIME AND INR Collected: 01/11/2025 10:55 AM Status: COMPLETED Source: [facility] TYPE CODE TESTS RESULT OUT OF RANGE REFERENCE UNITS LAB PROX PROTIME 46.4 High 9.8-13.2 sec LAB INR INR 4.1 High Alert 0.9-1.2 NA Performed By: #### PINR #### [facility] ([address] [address] VIR PROTIME AND INR Collected: 01/10/2025 12:25 PM Status: COMPLETED Source: [facility] TYPE CODE TESTS RESULT OUT OF RANGE REFERENCE UNITS LAB PROX PROTIME 52.0 High 9.8-13.2 sec LAB INR INR 4.6 High Alert 0.9-1.2 NA Performed By: #### PINR #### [address] [address] VIR FL SWALLOW MOTILITY FUNCTION Observed: 01/09/2025 8:42 AM Status: COMPLETED Source: [facility] SWALLOW MOTILITY FUNCTION FL SWALLOW MOTILITY FUNCTION [...] Booker Le MD on 01/09/2025 8:57 AM CBC (NO DIFF) Collected: 01/09/2025 4:36 AM S tatus: COMPLETED Source: [facility] TYPE CODE TESTS RESULT OUT OF RANGE REFERENCE UNITS LAB WBC WBC 12.6 High 4-11 x10E9/L LAB RBC RBC COUNT 2.67 Low 4.1-5.7 X10E12/L LAB HGB HEMOGLOBIN 8.4 Low 13-17 g/dL LAB HCT HEMATOCRIT 25.2 Low 39-50 % LAB MCV MCV 95 80-100 fL LAB MCH MCH 31.5 27-34 pg LAB MCHC MCHC 33.4 32-36 g/dL LAB RDW RDW 14.8 11.5-15 % LAB PLTC PLATELET COUNT 134 Low 150-450 X10E9/L LAB MPV MPV 8.8 7-12 fL Performed By: #### CBC #### [facility] ([facility]) [address] [place] [address] VIR BASIC METABOLIC PANEL Collected: 01/09/2025 4:3 6 AM Status: COMPLETED Source: [facility] TYPE CODE TESTS RESULT OUT OF RANGE REFERENCE UNITS LAB NA SODIUM 143 134-146 mmol/L LAB K POTASSIUM 4.0 3.5-5.0 mmol/L LAB CL CHLORIDE 108 98-109 mmol/L LAB CO2 CARBON DIOXIDE 28 22-32 mmol/L LAB AGAP ANION GAP 7 5-15 mmol/L LAB BUN BLOOD UREA NITROGEN 30 High 5-27 mg/dL LAB CRET CREATININE 0.70 0.60-1.30 mg/dL Result Comment: METHOD TRACE ABLE TO IDMS STANDARD LAB GLU GLUCOSE 109 High 65-99 mg/dL LAB CA CALCIUM 8.2 Low 8.5-10.5 mg/dL LAB EGFR EGFR (CKD-EPI) NON-RACE DEPENDENT >^90 >=60 ml/min/1. 73sq.m Result Comment: Reported eGF R is based on the CKD-EPI 2020 equation that does not use a race coefficient. Performed By: #### BMP #### [facility] ([facility]) [address] [place] [address] VIR PROTIME AND INR Collected: 01/09/2025 4:36 AM Status: COMPLETED Source: [facility] TYPE CODE TESTS RESULT OUT OF RANGE REFERENCE UNITS LAB PROX PROTIME 42.6 High 9.8-13.2 sec LAB INR INR 3.7 High 0.9-1.2 NA Performed By: #### PINR #### [facility] ([facility]) [address] [place] [address] VIR MAGNESIUM Collected: 01/09/2025 4:36 AM S tatus: COMPLETED Source: [facility] TESTS RESULT OUT OF RANGE REFERENCE UNITS LAB MG MAGNESIUM 2.2 1.8-2.6 mg/dL Performed By: #### MG #### [facility] ([facility]) [address] [place] [address] VIR BEDSIDE GLUCOSE Collected: 11:17 PM Status: COMPLETED Source: [facility] CODE TESTS RESULT OUT OF RANGE REFERENCE UNITS LAB BEDG BEDSIDE GLUCOSE ???BEDG 140 High 65-99 mg/dL Performed By: #### BEDG #### [facility] ([facility]) [address] [place] [address] VIR BEDSIDE GLUCOSE Collected: 01/08/2025 8:03 PM Status: COMPLETED Source: [facility] TYPE CODE TESTS RESULT OUT OF RANGE REFERENCE UNITS LAB BEDG BEDSIDE GLUCOSE ???BEDG 147 High 65-99 mg/dL Performed By: #### BEDG #### [facility] ([facility]) [address] [place] [address] VIR POTASSIUM Collected: 01/08/2025 5:03 PM S tatus: COMPLETED Source: [facility] TYPE CODE TESTS RESULT OUT OF RANGE REFERENCE UNITS LAB K POTASSIUM 4.1 3.5-5.0 mmol/L Performed By: #### K #### [facility] ([facility]) [address] [place] [address] VIR BEDSIDE GLUCOSE Collected: 01/08/2025 4:05 PM Status: COMPLETED Source: [facility] TYPE CODE TESTS RESULT OUT OF RANGE REFERENCE UNITS LAB BEDG BEDSIDE GLUCOSE ???BEDG 141 High 65-99 mg/dL Performed By: #### BEDG #### [facility] ([facility]) [address] [place] [address] VIR BEDSIDE GLUCOSE Collected: 12:04 PM Status: COMPLETED Source: [facility] TYPE CODE TESTS RESULT OUT OF RANGE REFERENCE UNITS LAB BEDG BEDSIDE GLUCOSE ???BEDG 170 High 65-99 mg/dL Performed By: #### BEDG #### [facility] ([facility]) [address] [place] [address] VIR POTASSIUM Collected: 11:04 AM Status: COMPLETED Source: [facility] TYPE CODE TESTS RESULT OUT OF RANGE REFERENCE UNITS LAB K POTASSIUM 3.7 3.5-5.0 mmol/L Performed By: #### K #### [facility] ([facility]) [facility] [address] [place] [address] VIR BEDSIDE GLUCOSE Collected: 01/08/2025 7:57 AM Status: COMPLETED Source: [facility] TYPE CODE TESTS RESULT OUT OF RANGE REFERENCE UNITS LAB BEDG BEDSIDE GLUCOSE ???BEDG 127 High 65-99 mg/dL Performed By: #### BEDG #### [facility] ([facility]) [address] [place] [address] VIR PROTIME AND INR Collected: 01/08/2025 6:02 AM Status: COMPLETED Source: [facility] TYPE CODE TESTS RESULT OUT OF RANGE REFERENCE UNITS LAB PROX PROTIME 27.0 High 9.8-13.2 sec LAB INR INR 2.4 High 0.9-1.2 NA Performed By: #### PINR #### [facility] ([facility]) [address] [place] [address] VIR CBC (NO DIFF) Collected: 01/08/2025 4:56 AM S tatus: COMPLETED Source: [facility] TYPE CODE TESTS RESULT OUT OF RANGE REFERENCE UNITS LAB WBC WBC 12.5 High 4-11 x10E9/L LAB RBC RBC COUNT 2.76 Low 4.1-5.7 X10E12/L LAB HGB HEMOGLOBIN 8.7 Low 13-17 g/dL LAB HCT HEMATOCRIT 25.8 Low 39-50 % LAB MCV MCV 93 80-100 fL LAB MCH MCH 31.4 27-34 pg LAB MCHC MCHC 33.7 32-36 g/dL LAB RDW RDW 14.5 11.5-15 % LAB PLTC PLATELET COUNT 105 Low 150-450 X10E9/L LAB MPV MPV 9.3 7-12 fL Performed By: #### CBC #### [facility] ([facility]) [facility] [place] [address] VIR BASIC METABOLIC PANEL Collected: 01/08/2025 4:5 6 AM Status: COMPLETED Source: [facility] TYPE CODE TESTS RESULT OUT OF RANGE REFERENCE UNITS LAB NA SODIUM 143 134-146 mmol/L LAB K POTASSIUM 3.6 3.5-5.0 mmol/L LAB CL CHLORIDE 105 98-109 mmol/L LAB CO2 CARBON DIOXIDE 29 22-32 mmol/L LAB AGAP ANION GAP 9 5-15 mmol/L LAB BUN BLOOD UREA NITROGEN 30 High 5-27 mg/dL LAB CRET CREATININE 0.74 0.60-1.30 mg/dL Result Comment: METHOD TRACE ABLE TO IDMS STANDARD LAB GLU GLUCOSE 123 High 65-99 mg/dL LAB CA CALCIUM 8.3 Low 8.5-10.5 mg/dL LAB EGFR EGFR (CKD-EPI) NON-RACE DEPENDENT >^90 >=60 ml/min/1. 73sq.m Result Comment: Reported eGF R is based on the CKD-EPI 2020 equation that does not use a race coefficient. Performed By: #### BMP #### [facility] ([facility]) [address] [address] [place] [address] VIR HEPARIN ANTI XA, UNFRACTIONATED Collect ed: 01/08/2025 12:13 AM Status: COMPLETED Source: [facility] TYPE CODE TESTS RESULT OUT OF RANGE REFERENCE UNITS LAB UFHXA ANTI XA UFH 0.07 Low 0.30-0.70 IU/mL Result Comment: Optimal time for testing is 6 hrs post dosage This test is specific for monitoring patients on UFH, and is not recommended for use with other Anti-Xa medications. Performed By: #### UFHXA ### # [facility] [facility] ([facility]) [address] [place] [address] VIR HEPARIN ANTI XA, UNFRACTIONATED Collected: 01/08/2025 12:06 AM Status: X Source: [facility] Order Comment: NOTE WAS SENT REQUESTING ANTIXA NOT TO BE RAN TYPE CODE TESTS RESULT OUT OF RANGE REFERENCE UNITS LAB UFHXA(LOINC) HEPARIN ANTI XA, UNFRACTIONATED UFHXA HEPARIN ANTI XA, UNFRACTIONATED Cancelled PROTIME AND INR Collected: 12:06 AM Status: COMPLETED Source: [facility] TYPE CODE TESTS RESULT OUT OF RANGE REFERENCE UNITS LAB PROX PROTIME 26.5 High 9.8-13.2 sec LAB INR INR 2.3 High 0.9-1.2 NA Performed By: #### PINR #### [facility] ([facility]) [address] [place] [address] VIR APTT Collected: 12:06 AM Status: COMPLETED Source: [facility] TYPE CODE TESTS RESULT OUT OF RANGE REFERENCE UNITS LAB PTT APTT 38 High 26-37 sec Performed By: #### PTT #### [facility] ([facility]) [address] [place] [address] VIR BEDSIDE GLUCOSE Collected: 01/07/2025 9:14 PM Status: COMPLETED Source: [facility] TYPE CODE TESTS RESULT OUT OF RANGE REFERENCE UNITS LAB BEDG BEDSIDE GLUCOSE ???BEDG 159 High 65-99 mg/dL Performed By: #### BEDG #### [facility] ([facility]) [address] [place] [address] VIR HEPARIN ANTI XA, UNFRACTIONATED Collect ed: 01/07/2025 5:25 PM Status: COMPLETED Source: [facility] TYPE CODE TESTS RESULT OUT OF RANGE REFERENCE UNITS LAB UFHXA ANTI XA UFH 0.48 0.30-0.70 IU/mL Result Comment: Optimal time for testing is 6 hrs post dosage This test is specific for monitoring patients on UFH, and is not recommended for use with other Anti-Xa medications. Performed By: #### UFHXA ### # [facility] ([facility]) [address] [place] [address] VIR BEDSIDE GLUCOSE Collected: 01/07/2025 4:26 PM Status: COMPLETED Source: [facility] TYPE CODE TESTS RESULT OUT OF RANGE REFERENCE UNITS LAB BEDG BEDSIDE GLUCOSE ???BEDG 124 High 65-99 mg/dL Performed By: #### BEDG #### [facility] ([facility]) [address] [place] [address] VIR PROTIME AND INR Collected: 01/07/2025 3:42 PM Status: COMPLETED Source: [facility] TYPE CODE TESTS RESULT OUT OF RANGE REFERENCE UNITS LAB PROX PROTIME 20.3 High 9.8-13.2 sec LAB INR INR 1.8 High 0.9-1.2 NA Performed By: #### PINR #### [facility] ([facility]) [address] [place] [address] VIR HEPARIN ANTI XA, UNFRACTIONATED Collect ed: 01/07/2025 3:42 PM Status: COMPLETED Source: [facility] TYPE CODE TESTS RESULT OUT OF RANGE REFERENCE UNITS LAB UFHXA ANTI XA UFH 0.43 0.30-0.70 IU/mL Result Comment: Optimal time for testing is 6 hrs post dosage This test is specific for monitoring patients on UFH, and is not recommended for use with other Anti-Xa medications. Performed By: #### UFHXA ### # [facility] ([facility]) [address] [place] [address] VIR BEDSIDE GLUCOSE Collected: 12:30 PM Status: COMPLETED Source: [facility] TYPE CODE TESTS RESULT OUT OF RANGE REFERENCE UNITS LAB BEDG BEDSIDE GLUCOSE ???BEDG 165 High 65-99 mg/dL Performed By: #### BEDG #### [facility] ([facility]) [address] [place] [address] VIR BEDSIDE GLUCOSE Collected: 01/07/2025 8:04 AM Status: COMPLETED Source: [facility] TYPE CODE TESTS RESULT OUT OF RANGE REFERENCE UNITS LAB BEDG BEDSIDE GLUCOSE ???BEDG 122 High 65-99 mg/dL Performed By: #### BEDG #### [facility] ([facility]) [address] [place] [address] VIR XR CHEST 1 VW Observed: 01/07/2025 4:18 AM Status: COMPLETED Source: [facility] XR CHEST 1 VW CHEST 1 VIEW HISTORY: Chest tube discontinuation COMPARISON: 01/06/2025 IMPRESSION: * Interval removal of right chest tube and mediastinal drains. Stable right IJ central venous catheter. * Elevated right hemidiaphragm with bibasilar atelectasis and small pleural effusions, unchanged. * No pneumothorax. Finalized by George Gregorio MD on 01/07/2025 4:26 AM CBC (NO DIFF) Collected: 01/07/2025 3:23 AM S tatus: COMPLETED Source: [facility] TYPE CODE TESTS RESULT OUT OF RANGE REFERENCE UNITS LAB WBC WBC 13.1 High 4-11 x10E9/L LAB RBC RBC COUNT 2.79 Low 4.1-5.7 X10E12/L LAB HGB HEMOGLOBIN 8.7 Low 13-17 g/dL LAB HCT HEMATOCRIT 25.8 Low 39-50 % LAB MCV MCV 92 80-100 fL LAB MCH MCH 31.2 27-34 pg LAB MCHC MCHC 33.9 32-36 g/dL LAB RDW RDW 14.8 11.5-15 % LAB PLTC PLATELET COUNT 92 Low 150-450 X10E9/L LAB MPV MPV 9.8 7-12 fL Performed By: #### CBC #### [facility] ([facility]) [address] [place] [address] VIR PROTIME AND INR Collected: 01/07/2025 3:23 AM Status: COMPLETED Source: [facility] TYPE CODE TESTS RESULT OUT OF RANGE REFERENCE UNITS LAB PROX PROTIME 17.0 High 9.8-13.2 sec LAB INR INR 1.5 High 0.9-1.2 NA Performed By: #### PINR #### [facility] ([facility]) [address] [place] [address] VIR BASIC METABOLIC PANEL Collected: 01/07/2025 3:2 3 AM Status: COMPLETED Source: [facility] TYPE CODE TESTS RESULT OUT OF RANGE REFERENCE UNITS LAB NA SODIUM 142 134-146 mmol/L LAB K POTASSIUM 3.9 3.5-5.0 mmol/L LAB CL CHLORIDE 105 98-109 mmol/L LAB CO2 CARBON DIOXIDE 31 22-32 mmol/L LAB AGAP ANION GAP 6 5-15 mmol/L LAB BUN BLOOD UREA NITROGEN 28 High 5-27 mg/dL LAB CRET CREATININE 0.75 0.60-1.30 mg/dL Result Comment: METHOD TRACE ABLE TO IDMS STANDARD LAB GLU GLUCOSE 127 High 65-99 mg/dL LAB CA CALCIUM 8.3 Low 8.5-10.5 mg/dL LAB EGFR EGFR (CKD-EPI) NON-RACE DEPENDENT >^90 >=60 ml/min/1. 73sq.m Result Comment: Reported eGF R is based on the CKD-EPI 2020 equation that does not use a race coefficient. Performed By: #### BMP #### [facility] ([facility]) [address] [place] [address] VIR BEDSIDE GLUCOSE Collected: 01/06/2025 9:47 PM Status: COMPLETED Source: [facility] TYPE CODE TESTS RESULT OUT OF RANGE REFERENCE UNITS LAB BEDG BEDSIDE GLUCOSE ???BEDG 182 High 65-99 mg/dL Performed By: #### BEDG #### [facility] ([facility]) [address] [place] [address] VIR BEDSIDE GLUCOSE Collected: 01/06/2025 8:41 PM Status: COMPLETED Source: [facility] TYPE CODE TESTS RESULT OUT OF RANGE REFERENCE UNITS LAB BEDG BEDSIDE GLUCOSE ???BEDG 234 High 65-99 mg/dL Performed By: #### BEDG #### [facility] ([facility]) [address] [place] [address] VIR BEDSIDE GLUCOSE Collected: 01/06/2025 5:30 PM Status: COMPLETED Source: [facility] TYPE CODE TESTS RESULT OUT OF RANGE REFERENCE UNITS LAB BEDG BEDSIDE GLUCOSE ???BEDG 209 High 65-99 mg/dL Performed By: #### BEDG #### [facility] ([facility]) [address] [place] [address] VIR PROTIME AND INR Collected: 01/06/2025 2:18 PM Status: COMPLETED Source: [facility] TYPE CODE TESTS RESULT OUT OF RANGE REFERENCE UNITS LAB PROX PROTIME 18.4 High 9.8-13.2 sec LAB INR INR 1.6 High 0.9-1.2 NA Performed By: #### PINR #### [facility] ([facility]) [address] [place] [address] VIR BEDSIDE GLUCOSE Collected: 12:08 PM Status: COMPLETED Source: [facility] TYPE CODE TESTS RESULT OUT OF RANGE REFERENCE UNITS LAB BEDG BEDSIDE GLUCOSE ???BEDG 212 High 65-99 mg/dL Performed By: #### BEDG #### [facility] ([facility]) [address] [place] [address] VIR POTASSIUM Collected: 11:46 AM Status: COMPLETED Source: [facility] TYPE CODE TESTS RESULT OUT OF RANGE REFERENCE UNITS LAB K POTASSIUM 4.4 3.5-5.0 mmol/L Performed By: #### K #### [facility] ([facility]) [address] [place] [address] VIR FL SWALLOW MOTILITY FUNCTION Observed: 01/06/2025 10:23 AM Status: COMPLETED Source: [facility] SWALLOW MOTILITY FUNCTION [place] SWALLOW MOTILITY FUNCTION HISTORY: Oropharyngeal dysphagia COMPARISON: [...] Christiana Martinez DO on 01/06/2025 10:34 AM Ramez Salvador DO have personally reviewed the image(s) and agree with and/or edited the report Finalized by Ramez Morales DO on 01/06/2025 10:38 AM CBC (NO DIFF) Collected: 01/06/2025 5:18 AM S tatus: COMPLETED Source: [facility] TYPE CODE TESTS RESULT OUT OF RANGE REFERENCE UNITS LAB WBC WBC 13.3 High 4-11 x10E9/L LAB RBC RBC COUNT 2.69 Low 4.1-5.7 X10E12/L LAB HGB HEMOGLOBIN 8.4 Low 13-17 g/dL LAB HCT HEMATOCRIT 25.0 Low 39-50 % LAB MCV MCV 93 80-100 fL LAB MCH MCH 31.4 27-34 pg LAB MCHC MCHC 33.7 32-36 g/dL LAB RDW RDW 15.2 High 11.5-15 % LAB PLTC PLATELET COUNT 80 Low 150-450 X10E9/L LAB MPV MPV 9.3 7-12 fL Performed By: #### CBC #### [facility] ([facility]) [address] [place] [address] VIR BASIC METABOLIC PANEL Collected: 01/06/2025 5:1 8 AM Status: COMPLETED Source: [facility] TYPE CODE TESTS RESULT OUT OF RANGE REFERENCE UNITS LAB NA SODIUM 141 134-146 mmol/L LAB K POTASSIUM 3.8 3.5-5.0 mmol/L LAB CL CHLORIDE 104 98-109 mmol/L LAB CO2 CARBON DIOXIDE 30 22-32 mmol/L LAB AGAP ANION GAP 7 5-15 mmol/L LAB BUN BLOOD UREA NITROGEN 28 High 5-27 mg/dL LAB CRET CREATININE 0.77 0.60-1.30 mg/dL Result Comment: METHOD TRACE ABLE TO IDMS STANDARD LAB GLU GLUCOSE 138 High 65-99 mg/dL LAB CA CALCIUM 8.1 Low 8.5-10.5 mg/dL LAB EGFR EGFR (CKD-EPI) NON-RACE DEPENDENT >^90 >=60 ml/min/1. 73sq.m Result Comment: Reported eGF R is based on the CKD-EPI 2020 equation that does not use a race coefficient. Performed By: #### BMP #### [facility] ([facility]) [address] [place] [address] VIR PROTIME AND INR Collected: 01/06/2025 5:18 AM Status: COMPLETED Source: [facility] TYPE CODE TESTS RESULT OUT OF RANGE REFERENCE UNITS LAB PROX PROTIME 17.2 High 9.8-13.2 sec LAB INR INR 1.5 High 0.9-1.2 NA Performed By: #### PINR #### [facility] ([facility]) [address] [place] [address] VIR XR CHEST 1 VW Observed: 01/06/2025 4:36 AM Status: COMPLETED Source: [facility] XR CHEST 1 VW Single view chest XR CHEST 1 VW History: Assess congestion, atelectasis and right pleural effusion. Comparison: January 05 Impression: * Bilateral congestion and effusions and bibasilar consolidation similar to prior study. Tubes and lines unchanged. Finalized by Jabari Bridges MD on 01/06/2025 6:10 AM MAGNESIUM Collected: 10:23 PM Status: COMPLETED Source: [facility] TYPE CODE TESTS RESULT OUT OF RANGE REFERENCE UNITS LAB MG MAGNESIUM 2.3 1.8-2.6 mg/dL Performed By: #### MG #### [facility] ([facility]) [address] [place] [address] VIR POTASSIUM Collected: 10:23 PM Status: COMPLETED Source: [facility] TYPE CODE TESTS RESULT OUT OF RANGE REFERENCE UNITS LAB K POTASSIUM 3.7 3.5-5.0 mmol/L Performed By: #### K #### [facility] ([facility]) [address] [place] [address] VIR AST Collected: 10:23 PM Status: COMPLETED Source: [facility] TYPE CODE TESTS RESULT OUT OF RANGE REFERENCE UNITS LAB AST AST 16 <=41 U/L Performed By: #### AST #### [facility] ([facility]) [address] [facility] [place] [address] VIR ALT Collected: 10:23 PM Status: COMPLETED Source: [facility] TYPE CODE TESTS RESULT OUT OF RANGE REFERENCE UNITS LAB ALT ALT 5 <=40 U/L Performed By: #### ALT #### [facility] ([facility]) [address] [place] [address] VIR BASIC METABOLIC PANEL Collected: 01/05/2025 10:23 PM Status: X Source: [facility] TYPE CODE TESTS RESULT OUT OF RANGE REFERENCE UNITS LAB BMP(LOINC) BASIC METABOLIC PANEL BMP BASIC METABOLIC PANEL Cancelled TSH Collected: 10:23 PM Status: COMPLETED Source: [facility] TYPE CODE TESTS RESULT OUT OF RANGE REFERENCE UNITS LAB TSH TSH 2.31 0.49-4.67 uIU/mL Performed By: #### TSH #### [facility] ([facility]) [address] [facility] [facility] [place] [address] VIR BEDSIDE GLUCOSE Collected: 01/05/2025 9:05 PM Status: COMPLETED Source: [facility] TESTS RESULT OUT OF RANGE REFERENCE UNITS LAB BEDG BEDSIDE GLUCOSE ???BEDG 122 High 65-99 mg/dL Performed By: #### BEDG #### [facility] ([facility]) [address] [place] [address] VIR BEDSIDE GLUCOSE Collected: 01/05/2025 5:57 PM Status: COMPLETED Source: [facility] TYPE CODE TESTS RESULT OUT OF RANGE REFERENCE UNITS LAB BEDG BEDSIDE GLUCOSE ???BEDG 129 High 65-99 mg/dL Performed By: #### BEDG #### [facility] ([facility]) [address] [place] [address] VIR PROTIME AND INR Collected: 01/05/2025 3:08 PM Status: COMPLETED Source: [facility] TYPE CODE TESTS RESULT OUT OF RANGE REFERENCE UNITS LAB PROX PROTIME 14.6 High 9.8-13.2 sec LAB INR INR 1.3 High 0.9-1.2 NA Performed By: #### PINR #### [facility] ([facility]) [address] [place] [address] VIR IONIZED CALCIUM Collected: 11:35 AM Status: COMPLETED Source: [facility] TYPE CODE TESTS RESULT OUT OF RANGE REFERENCE UNITS LAB ICA IONIZED CALCIUM - ICAN 4.6 4.5-5.3 mg/dL Performed By: #### ICA #### [facility] ([facility]) [address] [place] [address] VIR IONIZED MAGNESIUM Collected: 11:35 AM Status: COMPLETED Source: [facility] TYPE CODE TESTS RESULT OUT OF RANGE REFERENCE UNITS LAB IMAG IONIZED MAGNESIUM 0.64 0.45-0.74 mmol/L Performed By: #### IMAG #### [facility] ([facility]) [address] [place] [address] VIR POTASSIUM Collected: 11:35 AM Status: COMPLETED Source: [facility] TYPE CODE TESTS RESULT OUT OF RANGE REFERENCE UNITS LAB K POTASSIUM 3.9 3.5-5.0 mmol/L Performed By: #### K #### [facility] ([facility]) [address] [place] [address] VIR BEDSIDE GLUCOSE Collected: 11:30 AM Status: COMPLETED Source: [facility] TYPE CODE TESTS RESULT OUT OF RANGE REFERENCE UNITS LAB BEDG BEDSIDE GLUCOSE ???BEDG 134 High 65-99 mg/dL Performed By: #### BEDG #### [facility] ([facility]) [address] [place] [address] VIR XR CHEST 1 VW Observed: 01/05/2025 5:16 AM Status: COMPLETED Source: [facility] XR CHEST 1 VW XR CHEST 1 [...] Ramez Morales DO on 01/05/2025 6:36 AM PHOSPHORUS Collected: 01/05/2025 2:01 AM S tatus: COMPLETED Source: [facility] TYPE CODE TESTS RESULT OUT OF RANGE REFERENCE UNITS LAB PHOS PHOSPHORUS 3.8 2.4-4.9 mg/dL Performed By: #### PHOS #### [facility] ([facility]) [address] [place] [address] [address] [place] [address] VIR BASIC METABOLIC PANEL Collected: 01/05/2025 2:0 1 AM Status: COMPLETED Source: [facility] TYPE CODE TESTS RESULT OUT OF RANGE REFERENCE UNITS LAB NA SODIUM 144 134-146 mmol/L LAB K POTASSIUM 4.1 3.5-5.0 mmol/L LAB CL CHLORIDE 109 98-109 mmol/L LAB CO2 CARBON DIOXIDE 27 22-32 mmol/L LAB AGAP ANION GAP 8 5-15 mmol/L LAB BUN BLOOD UREA NITROGEN 28 High 5-27 mg/dL LAB CRET CREATININE 1.05 0.60-1.30 mg/dL Result Comment: METHOD TRACE ABLE TO IDMS STANDARD LAB GLU GLUCOSE 139 High 65-99 mg/dL LAB CA CALCIUM 8.1 Low 8.5-10.5 mg/dL LAB EGFR EGFR (CKD-EPI) NON-RACE DEPENDENT 72 >=60 ml/min/1. 73sq.m Result Comment: Reported eGF R is based on the CKD-EPI 2020 equation that does not use a race coefficient. Performed By: #### BMP #### [facility] ([facility]) [address] [place] [address] [address] [place] [address] VIR IONIZED CALCIUM Collected: 01/05/2025 2:01 AM Status: COMPLETED Source: [facility] TYPE CODE TESTS RESULT OUT OF RANGE REFERENCE UNITS LAB ICA IONIZED CALCIUM - ICAN 4.6 4.5-5.3 mg/dL Performed By: #### ICA #### [facility] ([facility]) [address] [place] [address] VIR IONIZED MAGNESIUM Collected: 01/05/2025 2:01 AM Status: COMPLETED Source: [facility] TYPE CODE TESTS RESULT OUT OF RANGE REFERENCE UNITS LAB IMAG IONIZED MAGNESIUM 0.66 0.45-0.74 mmol/L Performed By: #### IMAG #### [facility] ([facility]) [address] [place] [address] VIR CBC (NO DIFF) Collected: 01/05/2025 2:01 AM S tatus: COMPLETED Source: [facility] TYPE CODE TESTS RESULT OUT OF RANGE REFERENCE UNITS LAB WBC WBC 16.6 High 4-11 x10E9/L LAB RBC RBC COUNT 2.94 Low 4.1-5.7 X10E12/L LAB HGB HEMOGLOBIN 9.0 Low 13-17 g/dL LAB HCT HEMATOCRIT 26.5 Low 39-50 % LAB MCV MCV 90 80-100 fL LAB MCH MCH 30.7 27-34 pg LAB MCHC MCHC 34.0 32-36 g/dL LAB RDW RDW 15.7 High 11.5-15 % LAB PLTC PLATELET COUNT 90 Low 150-450 X10E9/L LAB MPV MPV 8.9 7-12 fL Performed By: #### CBC #### [facility] ([facility]) [address] [place] [address] VIR BEDSIDE GLUCOSE Collected: 01/04/2025 9:15 PM Status: COMPLETED Source: [facility] TYPE CODE TESTS RESULT OUT OF RANGE REFERENCE UNITS LAB BEDG BEDSIDE GLUCOSE ???BEDG 178 High 65-99 mg/dL Performed By: #### BEDG #### [facility] ([facility]) [address] [place] [address] VIR BEDSIDE GLUCOSE Collected: 01/04/2025 5:38 PM Status: COMPLETED Source: [facility] TYPE CODE TESTS RESULT OUT OF RANGE REFERENCE UNITS LAB BEDG BEDSIDE GLUCOSE ???BEDG 198 High 65-99 mg/dL Performed By: #### BEDG #### [facility] ([facility]) [address] [place] [address] VIR PROTIME AND INR Collected: 01/04/2025 1:16 PM Status: COMPLETED Source: [facility] TYPE CODE TESTS RESULT OUT OF RANGE REFERENCE UNITS LAB PROX PROTIME 12.4 9.8-13.2 sec LAB INR INR 1.1 0.9-1.2 NA Performed By: #### PINR #### [facility] ([facility]) [address] [place] [address] VIR APTT Collected: 01/04/2025 1:16 PM S tatus: COMPLETED Source: [facility] CODE TESTS RESULT OUT OF RANGE REFERENCE UNITS LAB PTT APTT 26 26-37 sec Performed By: #### PTT #### [facility] ([facility]) [address] [place] [address] VIR FIBRINOGEN Collected: 01/04/2025 1:16 PM S tatus: COMPLETED Source: [facility] CODE TESTS RESULT OUT OF RANGE REFERENCE UNITS LAB FIBR FIBRINOGEN 244 190-480 mg/dL Performed By: #### FIBR #### [facility] ([facility]) [address] [place] [address] VIR CBC WITH AUTO DIFFERENTIAL Collected: 0 01/04/2025 1:16 PM Status: COMPLETED Source: [facility] TYPE CODE TESTS RESULT OUT OF RANGE REFERENCE UNITS LAB WBC WBC 17.7 High 4-11 x10E9/L LAB RBC RBC COUNT 3.34 Low 4.1-5.7 X10E12/L LAB HGB HEMOGLOBIN 10.4 Low 13-17 g/dL LAB HCT HEMATOCRIT 30.2 Low 39-50 % LAB MCV MCV 90 80-100 fL LAB MCH MCH 31.1 27-34 pg LAB MCHC MCHC 34.4 32-36 g/dL LAB RDW RDW 15.6 High 11.5-15 % LAB PLTC PLATELET COUNT 105 Low 150-450 X10E9/L LAB MPV MPV 9.0 7-12 fL LAB NEUTCV CELLAVISION NEUTROPHILS RELATIVE PERCENT BY MANUAL COUNT 87 % Result Comment: This is an a ppended report. These results have been appended to a previously preliminary verified report. LAB LYMPCV CELLAVISION LYMPHOCYTES RELATIVE PERCENT BY MANUAL COUNT 3 % Result Comment: This is an a ppended report. These results have been appended to a previously preliminary verified report. LAB MONOC CELLAVISION MONOCYTES RELATIVE PERCENT BY MANUAL COUNT 10 % Result Comment: This is an a ppended report. These results have been appended to a previously preliminary verified report. LAB ANEUTCV CELLAVISION NEUTROPHILS ABSOLUTE COUNT BY MANUAL COUNT 15.4 10*3/uL Result Comment: This is an a ppended report. These results have been appended to a previously preliminary verified report. LAB ALYMPCV CELLAVISION LYMPHOCYTES ABSOLUTE COUNT (10*3/UL) BY MANUAL COUNT 0.5 10*3/uL Result Comment: This is an a ppended report. These results have been appended to a previously preliminary verified report. LAB AMONOC CELLAVISION MONOCYTES ABSOLUTE COUNT (10*3/UL) IN BLOOD BY MANUAL COUNT 1.8 10*3/uL Result Comment: This is an a ppended report. These results have been appended to a previously preliminary verified report. LAB DTYPE CELLAVISION DIFFERENTIAL TYPE MANUAL DIFFERENTIAL Result Comment: This is an a ppended report. These results have been appended to a previously preliminary verified report. Performed By: #### CBCA #### [facility] ([facility]) [address] [place] [address] VIR BASIC METABOLIC PANEL Collected: 01/04/2025 1:1 6 PM Status: COMPLETED Source: [facility] TYPE CODE TESTS RESULT OUT OF RANGE REFERENCE UNITS LAB NA SODIUM 146 134-146 mmol/L LAB K POTASSIUM 4.1 3.5-5.0 mmol/L LAB CL CHLORIDE 108 98-109 mmol/L LAB CO2 CARBON DIOXIDE 24 22-32 mmol/L LAB AGAP ANION GAP 14 5-15 mmol/L LAB BUN BLOOD UREA NITROGEN 25 5-27 mg/dL LAB CRET CREATININE 1.17 0.60-1.30 mg/dL Result Comment: METHOD TRACE ABLE TO IDMS STANDARD LAB GLU GLUCOSE 202 High 65-99 mg/dL LAB CA CALCIUM 8.2 Low 8.5-10.5 mg/dL LAB EGFR EGFR (CKD-EPI) NON-RACE DEPENDENT 63 >=60 ml/min/1. 73sq.m Result Comment: Reported eGF R is based on the CKD-EPI 2020 equation that does not use a race coefficient. Performed By: #### BMP #### [facility] ([facility]) [address] [place] [address] VIR XR CHEST 1 VW Observed: 01/04/2025 1:10 PM Status: COMPLETED Source: [facility] XR CHEST 1 VW HISTORY: Pneumothorax COMPARISON: [...] Delgado Ricci MD on 01/04/2025 1:24 PM POCT ABG RAPID K GLU ICA HH Collected: 01/04/2025 11:24 AM Status: COMPLETED Source: [facility] TYPE CODE TESTS RESULT OUT OF RANGE REFERENCE UNITS LAB IK PORTABLE POTASSIUM 4.1 3.5-5.0 mmol/L LAB IGLU PORTABLE GLUCOSE 185 High 65-99 mg/dL LAB IHGB PORTABLE HGB 10.5 Low 13.0-17.0 g/dL LAB IHCT PORTABLE HEMATOCRIT 32 Low Alert 39-47 % LAB IICA PORTABLE ICA 4.6 4.5-5.3 mg/dL LAB STYP SAMPLE TYPE Arterial LAB TEMP BODY TEMP 37.00 >=37 C LAB PH PH ARTERIAL 7.271 Low 7.350-7.450 NA LAB PCO2 PCO2 ARTERIAL 45.5 High 35.0-45.0 mmHg LAB PO2 PO2 ARTERIAL 300 High 80-100 mmHg LAB BZD BASE,DEFICIT -5.9 Low 0.0-2.0 mmol/L LAB HCO3 HCO3 ARTERIAL 21.0 Low 22.0-26.0 mmol/L LAB SO2M %O2 SATURATION ARTERIAL 100.2 >90.0 % LAB ALN POC BEATRIZ'S TEST NA LAB SSIT SAMPLE SITE A LINE LAB FIO2 INSP. O2 CONC. 100.0 % Performed By: #### [id number] ### # [facility] ([facility]) [address] [place] [address] VIR HEMOGLOBIN AND HEMATOCRIT, BLOOD Collected: 01/04/2025 8:10 AM Status: COMPLETED Source: [facility] TYPE CODE TESTS RESULT OUT OF RANGE REFERENCE UNITS LAB HGB HEMOGLOBIN 10.4 Low 13-17 g/dL LAB HCT HEMATOCRIT 30.1 Low 39-50 % Performed By: #### HH #### [facility] ([facility]) [address] [place] [address] VIR XR CHEST 1 VW Observed: 01/04/2025 5:06 AM Status: COMPLETED Source: [facility] XR CHEST 1 VW CLINICAL HISTORY: Post open heart Comparison: 01/03/2025 Views: 1 view FINDINGS: * [place] catheter overlies main pulmonary artery. * Central line from below overlies right atrium. Mediastinal drain in place. Small effusions and atelectasis. Heart size stable. * 2.5 cm pneumothorax right apex mass. IMPRESSION: * Extensive pleural-parenchymal abnormalities similar to previous exam. * Right apical pneumothorax without mass effect. This is a new finding. Finalized by Booker Le MD on 01/04/2025 6:20 AM BEDSIDE GLUCOSE Collected: 01/04/2025 4:50 AM Status: COMPLETED Source: [facility] TYPE CODE TESTS RESULT OUT OF RANGE REFERENCE UNITS LAB BEDG BEDSIDE GLUCOSE ???BEDG 146 High 65-99 mg/dL Performed By: #### BEDG #### [facility] ([facility]) [address] [place] [address] VIR IONIZED CALCIUM Collected: 01/04/2025 2:22 AM Status: COMPLETED Source: [facility] TYPE CODE TESTS RESULT OUT OF RANGE REFERENCE UNITS LAB ICA IONIZED CALCIUM - ICAN 4.7 4.5-5.3 mg/dL Performed By: #### ICA #### [facility] ([facility]) [address] [facility] [address] [place] [address] VIR CBC (NO DIFF) Collected: 01/04/2025 2:22 AM S tatus: COMPLETED Source: [facility] TYPE CODE TESTS RESULT OUT OF RANGE REFERENCE UNITS LAB WBC WBC 12.5 High 4-11 x10E9/L LAB RBC RBC COUNT 3.40 Low 4.1-5.7 X10E12/L LAB HGB HEMOGLOBIN 10.8 Low 13-17 g/dL LAB HCT HEMATOCRIT 30.8 Low 39-50 % LAB MCV MCV 91 80-100 fL LAB MCH MCH 31.8 27-34 pg LAB MCHC MCHC 35.1 32-36 g/dL LAB RDW RDW 14.5 11.5-15 % LAB PLTC PLATELET COUNT 111 Low 150-450 X10E9/L LAB MPV MPV 8.6 7-12 fL Performed By: #### CBC #### [facility] ([facility]) [facility] [place] [address] VIR PROTIME AND INR Collected: 01/04/2025 2:22 AM Status: COMPLETED Source: [facility] TYPE CODE TESTS RESULT OUT OF RANGE REFERENCE UNITS LAB PROX PROTIME 13.5 High 9.8-13.2 sec LAB INR INR 1.2 0.9-1.2 NA Performed By: #### PINR #### [facility] ([facility]) [facility] [address] [address] VIR PHOSPHORUS Collected: 01/04/2025 2:22 AM S tatus: COMPLETED Source: [facility] TYPE CODE TESTS RESULT OUT OF RANGE REFERENCE UNITS LAB PHOS PHOSPHORUS 4.5 2.4-4.9 mg/dL Performed By: #### PHOS #### [facility] ([facility]) [address] [place] [address] VIR BASIC METABOLIC PANEL Collected: 01/04/2025 2:2 2 AM Status: COMPLETED Source: [facility] TYPE CODE TESTS RESULT OUT OF RANGE REFERENCE UNITS LAB NA SODIUM 145 134-146 mmol/L LAB K POTASSIUM 3.8 3.5-5.0 mmol/L LAB CL CHLORIDE 108 98-109 mmol/L LAB CO2 CARBON DIOXIDE 27 22-32 mmol/L LAB AGAP ANION GAP 10 5-15 mmol/L LAB BUN BLOOD UREA NITROGEN 20 5-27 mg/dL LAB CRET CREATININE 0.94 0.60-1.30 mg/dL Result Comment: METHOD TRACE ABLE TO IDMS STANDARD LAB GLU GLUCOSE 96 65-99 mg/dL LAB CA CALCIUM 8.1 Low 8.5-10.5 mg/dL LAB EGFR EGFR (CKD-EPI) NON-RACE DEPENDENT 82 >=60 ml/min/1. 73sq.m Result Comment: Reported eGF R is based on the CKD-EPI 2020 equation that does not use a race coefficient. Performed By: #### BMP #### [facility] ([facility]) [address] [place] [address] [address] [place] [address] VIR IONIZED MAGNESIUM Collected: 01/04/2025 2:22 AM Status: COMPLETED Source: [facility] CODE TESTS RESULT OUT OF RANGE REFERENCE UNITS LAB IMAG IONIZED MAGNESIUM 0.61 0.45-0.74 mmol/L Performed By: #### IMAG #### [facility] ([facility]) [address] [place] [address] [address] [place] [address] VIR BEDSIDE GLUCOSE Collected: 12:48 AM Status: COMPLETED Source: [facility] CODE TESTS RESULT OUT OF RANGE REFERENCE UNITS LAB BEDG BEDSIDE GLUCOSE ???BEDG 104 High 65-99 mg/dL Performed By: #### BEDG #### [facility] ([facility]) [address] [place] [address] VIR HEMOGLOBIN Collected: 01/03/2025 10:42 PM Status: COMPLETED Source: [facility] TYPE CODE TESTS RESULT OUT OF RANGE REFERENCE UNITS LAB HGB HEMOGLOBIN 9.3 Low 13-17 g/dL Performed By: #### HGB #### [facility] ([facility]) [address] [address] [place] [address] VIR BEDSIDE GLUCOSE Collected: 10:05 PM Status: COMPLETED Source: [facility] TYPE CODE TESTS RESULT OUT OF RANGE REFERENCE UNITS LAB BEDG BEDSIDE GLUCOSE ???BEDG 128 High 65-99 mg/dL Performed By: #### BEDG #### [facility] ([facility]) [address] [place] [address] VIR CBC (NO DIFF) Collected: 01/03/2025 10:03 PM Status: X Source: [facility] TYPE CODE TESTS RESULT OUT OF RANGE REFERENCE UNITS LAB CBC(LOINC) CBC (NO DIFF) CBC CBC (NO DIFF) Cancelled CBC WITH AUTO DIFFERENTIAL Collected: 0 01/03/2025 10:03 PM Status: COMPLETED Source: [facility] TYPE CODE TESTS RESULT OUT OF RANGE REFERENCE UNITS LAB WBC WBC 9.8 4-11 x10E9/L LAB RBC RBC COUNT 2.81 Low 4.1-5.7 X10E12/L LAB HGB HEMOGLOBIN 9.1 Low 13-17 g/dL LAB HCT HEMATOCRIT 25.3 Low 39-50 % LAB MCV MCV 90 80-100 fL LAB MCH MCH 32.3 27-34 pg LAB MCHC MCHC 35.9 32-36 g/dL LAB RDW RDW 14.1 11.5-15 % LAB PLTC PLATELET COUNT 100 Low 150-450 X10E9/L LAB MPV MPV 8.7 7-12 fL LAB NEUT NEUTROPHILS RELATIVE PERCENT BY AUTOMATED COUNT 89.3 % LAB LYMP LYMPHOCYTES RELATIVE PERCENT BY AUTOMATED COUNT 3.7 % LAB MONO MONOCYTES RELATIVE PERCENT BY AUTOMATED COUNT 6.9 % LAB EOS EOSINOPHILS RELATIVE PERCENT BY AUTOMATED COUNT 0.0 % LAB BASO BASOPHILS RELATIVE PERCENT BY AUTOMATED COUNT 0.1 % LAB ANEUT NEUTROPHILS ABSOLUTE COUNT BY AUTOMATED COUNT 8.8 10*3/uL LAB ALYMP LYMPHOCYTES ABSOLUTE COUNT (10*3/UL) BY AUTOMATED COUNT 0.4 10*3/uL LAB AMONO MONOCYTES ABSOLUTE COUNT (10*3/UL) BY AUTOMATED COUNT 0.7 10*3/uL LAB AEOS EOSINOPHILS ABSOLUTE COUNT (10*3/UL) BY AUTOMATED COUNT 0.0 10*3/uL LAB ABASO BASOPHILS ABSOLUTE COUNT (10*3/UL) BY AUTOMATED COUNT 0.0 10*3/uL LAB DTYPE CELLAVISION DIFFERENTIAL TYPE AUTOMATED DIFFERENTIAL Performed By: #### CBCA #### [facility] ([facility]) [address] [place] [address] VIR BEDSIDE GLUCOSE Collected: 01/03/2025 8:11 PM Status: COMPLETED Source: [facility] TYPE CODE TESTS RESULT OUT OF RANGE REFERENCE UNITS LAB BEDG BEDSIDE GLUCOSE ???BEDG 114 High 65-99 mg/dL Performed By: #### BEDG #### [facility] ([facility]) [address] [place] [address] VIR BEDSIDE GLUCOSE Collected: 01/03/2025 7:27 PM Status: COMPLETED Source: [facility] TYPE CODE TESTS RESULT OUT OF RANGE REFERENCE UNITS LAB BEDG BEDSIDE GLUCOSE ???BEDG 113 High 65-99 mg/dL Performed By: #### BEDG #### [facility] ([facility]) [address] [place] [address] VIR PLATELET COUNT Collected: 01/03/2025 7:25 PM S tatus: COMPLETED Source: [facility] TYPE CODE TESTS RESULT OUT OF RANGE REFERENCE UNITS LAB PLTC PLATELET COUNT 119 Low 150-450 X10E9/L Performed By: #### PLTCT ### # [facility] ([facility]) [address] [place] [address] VIR HEMOGLOBIN AND HEMATOCRIT, BLOOD Collected: 01/03/2025 7:25 PM Status: COMPLETED Source: [facility] TYPE CODE TESTS RESULT OUT OF RANGE REFERENCE UNITS LAB HGB HEMOGLOBIN 6.8 Low Alert 13-17 g/dL LAB HCT HEMATOCRIT 19.7 Low 39-50 % Performed By: #### HH #### [facility] ([facility]) [address] [place] [address] VIR BEDSIDE GLUCOSE Collected: 01/03/2025 6:14 PM Status: COMPLETED Source: [facility] TYPE CODE TESTS RESULT OUT OF RANGE REFERENCE UNITS LAB BEDG BEDSIDE GLUCOSE ???BEDG 148 High 65-99 mg/dL Performed By: #### BEDG #### [facility] ([facility]) [address] [place] [address] VIR POTASSIUM Collected: 01/03/2025 6:12 PM S tatus: COMPLETED Source: [facility] TYPE CODE TESTS RESULT OUT OF RANGE REFERENCE UNITS LAB K POTASSIUM 3.9 3.5-5.0 mmol/L Performed By: #### K #### [facility] ([facility]) [address] [place] [address] VIR BEDSIDE GLUCOSE Collected: 01/03/2025 4:54 PM Status: COMPLETED Source: [facility] TYPE CODE TESTS RESULT OUT OF RANGE REFERENCE UNITS LAB BEDG BEDSIDE GLUCOSE ???BEDG 156 High 65-99 mg/dL Performed By: #### BEDG #### [facility] ([facility]) [address] [place] [address] VIR PROTIME AND INR Collected: 01/03/2025 4:49 PM Status: COMPLETED Source: [facility] TYPE CODE TESTS RESULT OUT OF RANGE REFERENCE UNITS LAB PROX PROTIME 16.2 High 9.8-13.2 sec LAB INR INR 1.4 High 0.9-1.2 NA Performed By: #### PINR #### [facility] ([facility]) [facility] [place] [address] VIR BEDSIDE GLUCOSE Collected: 01/03/2025 4:09 PM Status: COMPLETED Source: [facility] CODE TESTS RESULT OUT OF RANGE REFERENCE UNITS LAB BEDG BEDSIDE GLUCOSE ???BEDG 143 High 65-99 mg/dL Performed By: #### BEDG #### [facility] ([facility]) [address] [place] [address] VIR BEDSIDE GLUCOSE Collected: 01/03/2025 3:21 PM Status: COMPLETED Source: [facility] TYPE CODE TESTS RESULT OUT OF RANGE REFERENCE UNITS LAB BEDG BEDSIDE GLUCOSE ???BEDG 158 High 65-99 mg/dL Performed By: #### BEDG #### [facility] ([facility]) [address] [place] [address] VIR BLOOD GAS, ARTERIAL Collected: 01/03/2025 2:33 PM Status: COMPLETED Source: [facility] TYPE CODE TESTS RESULT OUT OF RANGE REFERENCE UNITS LAB STYP SAMPLE TYPE Arterial LAB TEMP BODY TEMP 37.00 >=37 C LAB PH PH ARTERIAL 7.491 High 7.350-7.450 NA LAB PCO2 PCO2 ARTERIAL 33.7 Low 35.0-45.0 mmHg LAB PO2 PO2 ARTERIAL 299 High 80-100 mmHg LAB BE BASE,EXCESS 2.4 High 0.0-2.0 mmol/L LAB HCO3 HCO3 ARTERIAL 25.7 22.0-26.0 mmol/L LAB SO2M %O2 SATURATION ARTERIAL 100.7 >90.0 % LAB ALN POC BEATRIZ'S TEST NA LAB SPO2 SPO2 299.0 % LAB SSIT SAMPLE SITE A LINE LAB FIO2 INSP. O2 CONC. 100.0 % Performed By: #### ABG #### [facility] (TT) [address] [place] [address] VIR XR CHEST 1 VW Observed: 01/03/2025 2:00 PM Status: COMPLETED Source: [facility] XR CHEST 1 VW Clinical History: Respiratory distress. Portable Upright chest: 01/03/2025 Comparison: 03/09/2020 Findings: A single portable view of the chest was obtained. Endotracheal tube tip is in the mid trachea. Enteric tube appears to terminate at the mid thoracic level. Chest tubes are present. The [place] catheter tip overlies the main pulmonary outflow [...] Foster Pimentel MD on 01/03/2025 2:28 PM IONIZED CALCIUM Collected: 01/03/2025 2:00 PM Status: COMPLETED Source: [facility] TYPE CODE TESTS RESULT OUT OF RANGE REFERENCE UNITS LAB ICA IONIZED CALCIUM - ICAN 5.0 4.5-5.3 mg/dL Performed By: #### ICA #### [facility] ([facility]) [address] [place] [address] VIR IONIZED MAGNESIUM Collected: 01/03/2025 2:00 PM Status: COMPLETED Source: [facility] TESTS RESULT OUT OF RANGE REFERENCE UNITS LAB IMAG IONIZED MAGNESIUM 0.65 0.45-0.74 mmol/L Performed By: #### IMAG #### [facility] ([facility]) [address] [place] [address] VIR PROTIME AND INR Collected: 01/03/2025 2:00 PM Status: COMPLETED Source: [facility] TESTS RESULT OUT OF RANGE REFERENCE UNITS LAB PROX PROTIME 18.0 High 9.8-13.2 sec LAB INR INR 1.6 High 0.9-1.2 NA Performed By: #### PINR #### [facility] ([facility]) [address] [place] [address] VIR APTT Collected: 01/03/2025 2:00 PM S tatus: COMPLETED Source: [facility] TESTS RESULT OUT OF RANGE REFERENCE UNITS LAB PTT APTT 34 26-37 sec Performed By: #### PTT #### [facility] ([facility]) [address] [place] [address] VIR POTASSIUM Collected: 01/03/2025 2:00 PM S tatus: COMPLETED Source: [facility] TESTS RESULT OUT OF RANGE REFERENCE UNITS LAB K POTASSIUM 3.5 3.5-5.0 mmol/L Performed By: #### K #### [facility] ([facility]) [address] [place] [address] VIR BUN Collected: 01/03/2025 2:00 PM S tatus: COMPLETED Source: [facility] TESTS RESULT OUT OF RANGE REFERENCE UNITS LAB BUN BLOOD UREA NITROGEN 15 5-27 mg/dL Performed By: #### BUN #### [facility] ([facility]) [address] [place] [address] VIR CREATININE, SERUM Collected: 2:00 PM Status: COMPLETED Source: [facility] TYPE CODE TESTS RESULT OUT OF RANGE REFERENCE UNITS LAB CRET CREATININE 0.79 0.60-1.30 mg/dL Result Comment: METHOD TRACE ABLE TO IDMS STANDARD LAB EGFR EGFR (CKD-EPI) NON-RACE DEPENDENT 90 >=60 ml/min/1. 73sq.m Result Comment: Reported eGF R is based on the CKD-EPI 2020 equation that does not use a race coefficient. Performed By: #### FINISH PRODUCTION MANAGER #### [facility] ([facility]) [address] [address] [place] [address] VIR HEMOGLOBIN Collected: 01/03/2025 2:00 PM Status: X Source: [facility] TESTS RESULT OUT OF RANGE REFERENCE UNITS LAB HGB(LOINC) HEMOGLOBIN HGB HEMOGLOBIN Cancelled PLATELET COUNT Collected: 01/03/2025 2:00 PM S tatus: COMPLETED Source: [facility] TESTS RESULT OUT OF RANGE REFERENCE UNITS LAB PLTC PLATELET COUNT 87 Low 150-450 X10E9/L Performed By: #### PLTCT ### # [facility] ([facility]) [address] [place] [address] VIR HEMOGLOBIN AND HEMATOCRIT, BLOOD Collected: 01/03/2025 2:00 PM Status: COMPLETED Source: [facility] TESTS RESULT OUT OF RANGE REFERENCE UNITS LAB HGB HEMOGLOBIN 8.5 Low 13-17 g/dL LAB HCT HEMATOCRIT 26.1 Low 39-50 % Performed By: #### HH #### [facility] ([facility]) [address] [address] [place] [address] VIR BEDSIDE GLUCOSE Collected: 01/03/2025 1:58 PM Status: COMPLETED Source: [facility] TYPE CODE TESTS RESULT OUT OF RANGE REFERENCE UNITS LAB BEDG BEDSIDE GLUCOSE ???BEDG 164 High 65-99 mg/dL Performed By: #### BEDG #### [facility] ([facility]) [address] [place] [address] VIR POCT ABG RAPID K GLU ICA HH Collected: 01/04/20 1:28 PM Status: COMPLETED Source: [facility] TYPE CODE TESTS RESULT OUT OF RANGE REFERENCE UNITS LAB IK PORTABLE POTASSIUM 3.4 Low 3.5-5.0 mmol/L LAB IGLU PORTABLE GLUCOSE 158 High 65-99 mg/dL LAB IHGB PORTABLE HGB 7.6 Low 13.0-17.0 g/dL LAB IHCT PORTABLE HEMATOCRIT 23 Low Alert 39-47 % LAB IICA PORTABLE ICA 4.1 Low 4.5-5.3 mg/dL LAB STYP SAMPLE TYPE Arterial LAB TEMP BODY TEMP 37.00 >=37 C LAB PH PH ARTERIAL 7.467 High 7.350-7.450 NA LAB PCO2 PCO2 ARTERIAL 36.4 35.0-45.0 mmHg LAB PO2 PO2 ARTERIAL 339 High 80-100 mmHg LAB BE BASE,EXCESS 2.5 High 0.0-2.0 mmol/L LAB HCO3 HCO3 ARTERIAL 26.3 High 22.0-26.0 mmol/L LAB SO2M %O2 SATURATION ARTERIAL 100.5 >90.0 % LAB ALN POC BEATRIZ'S TEST NA LAB SSIT SAMPLE SITE A LINE LAB FIO2 INSP. O2 CONC. 100.0 % Performed By: #### [id number] ### # [facility] ([facility]) [address] [place] [address] VIR POCT ABG RAPID K GLU ICA HH Collected: 01/03/2025 12:41 PM Status: COMPLETED Source: [facility] TYPE CODE TESTS RESULT OUT OF RANGE REFERENCE UNITS LAB IK PORTABLE POTASSIUM 3.8 3.5-5.0 mmol/L LAB IGLU PORTABLE GLUCOSE 169 High 65-99 mg/dL LAB IHGB PORTABLE HGB 7.5 Low 13.0-17.0 g/dL LAB IHCT PORTABLE HEMATOCRIT 23 Low Alert 39-47 % LAB IICA PORTABLE ICA 4.6 4.5-5.3 mg/dL LAB STYP SAMPLE TYPE Arterial LAB TEMP BODY TEMP 37.00 >=37 C LAB PH PH ARTERIAL 7.478 High 7.350-7.450 NA LAB PCO2 PCO2 ARTERIAL 33.7 Low 35.0-45.0 mmHg LAB PO2 PO2 ARTERIAL 198 High 80-100 mmHg LAB BE BASE,EXCESS 1.5 0.0-2.0 mmol/L LAB HCO3 HCO3 ARTERIAL 25.0 22.0-26.0 mmol/L LAB SO2M %O2 SATURATION ARTERIAL 100.4 >90.0 % LAB ALN POC BEATRIZ'S TEST NA LAB SSIT SAMPLE SITE A LINE LAB FIO2 INSP. O2 CONC. 100.0 % Performed By: #### [id number] ### # [facility] ([facility]) [address] [place] [address] VIR POCT ABG RAPID K GLU HH Collected: 12/07 12:14 PM Status: COMPLETED Source: [facility] TYPE CODE TESTS RESULT OUT OF RANGE REFERENCE UNITS LAB IK PORTABLE POTASSIUM 4.4 3.5-5.0 mmol/L LAB IGLU PORTABLE GLUCOSE 161 High 65-99 mg/dL LAB IHGB PORTABLE HGB 7.9 Low 13.0-17.0 g/dL LAB IHCT PORTABLE HEMATOCRIT 24 Low Alert 39-47 % LAB STYP SAMPLE TYPE Arterial LAB TEMP BODY TEMP 37.00 >=37 C LAB PH PH ARTERIAL 7.480 High 7.350-7.450 NA LAB PCO2 PCO2 ARTERIAL 32.8 Low 35.0-45.0 mmHg LAB PO2 PO2 ARTERIAL 297 High 80-100 mmHg LAB BE BASE,EXCESS 0.9 0.0-2.0 mmol/L LAB HCO3 HCO3 ARTERIAL 24.4 22.0-26.0 mmol/L LAB SO2M %O2 SATURATION ARTERIAL 100.5 >90.0 % LAB ALN POC BEATRIZ'S TEST NA LAB SSIT SAMPLE SITE A LINE LAB FIO2 INSP. O2 CONC. 100.0 % LAB SPO2 SPO2 297.0 % Performed By: #### HRTN #### [facility] ([facility]) [address] [place] [address] VIR POCT ABG RAPID K GLU Collected: 12/07 11:45 AM Status: COMPLETED Source: [facility] TYPE CODE TESTS RESULT OUT OF RANGE REFERENCE UNITS LAB IK PORTABLE POTASSIUM 4.5 3.5-5.0 mmol/L LAB IGLU PORTABLE GLUCOSE 151 High 65-99 mg/dL LAB IHGB PORTABLE HGB 7.4 Low 13.0-17.0 g/dL LAB IHCT PORTABLE HEMATOCRIT 23 Low Alert 39-47 % LAB STYP SAMPLE TYPE Arterial LAB TEMP BODY TEMP 37.00 >=37 C LAB PH PH ARTERIAL 7.489 High 7.350-7.450 NA LAB PCO2 PCO2 ARTERIAL 28.2 Low 35.0-45.0 mmHg LAB PO2 PO2 ARTERIAL 370 High 80-100 mmHg LAB BZD BASE,DEFICIT -2.0 Low 0.0-2.0 mmol/L LAB HCO3 HCO3 ARTERIAL 21.4 Low 22.0-26.0 mmol/L LAB SO2M %O2 SATURATION ARTERIAL 100.5 >90.0 % LAB ALN POC BEATRIZ'S TEST NA LAB SSIT SAMPLE SITE A LINE LAB FIO2 INSP. O2 CONC. 100.0 % LAB SPO2 SPO2 370.0 % Performed By: #### HRTN #### [facility] ([facility]) [address] [place] [address] VIR POCT ABG RAPID K GLU HH Collected: 12/07 11:15 AM Status: COMPLETED Source: [facility] TYPE CODE TESTS RESULT OUT OF RANGE REFERENCE UNITS LAB IK PORTABLE POTASSIUM 4.8 3.5-5.0 mmol/L LAB IGLU PORTABLE GLUCOSE 148 High 65-99 mg/dL LAB IHGB PORTABLE HGB 8.7 Low 13.0-17.0 g/dL LAB IHCT PORTABLE HEMATOCRIT 27 Low Alert 39-47 % LAB STYP SAMPLE TYPE Arterial LAB TEMP BODY TEMP 37.00 >=37 C LAB PH PH ARTERIAL 7.358 7.350-7.450 NA LAB PCO2 PCO2 ARTERIAL 43.7 35.0-45.0 mmHg LAB PO2 PO2 ARTERIAL 371 High 80-100 mmHg LAB BZD BASE,DEFICIT -0.9 Low 0.0-2.0 mmol/L LAB HCO3 HCO3 ARTERIAL 24.6 22.0-26.0 mmol/L LAB SO2M %O2 SATURATION ARTERIAL 100.5 >90.0 % LAB ALN POC BEATRIZ'S TEST NA LAB SSIT SAMPLE SITE A LINE LAB FIO2 INSP. O2 CONC. 100.0 % LAB SPO2 SPO2 371.0 % Performed By: #### HRTN #### [facility] ([facility]) [address] [place] [address] VIR SURGICAL PATHOLOGY Observed: 01/03/2025 10:41 AM Status: COMPLETED Source: [facility] Order Comment: Pre-op diagno sis: AORTIC ANEURYSM Surgical Pathology Report Ca se: Authorizing Provider: Ko Lara MD Collected: 01/03/2025 1041 Ordering Location: [facility] Received: 01/03/2025 1401 - Surgery Pathologist: Ade Mireles MD Specimen: Heart, AORTIC ANUERSYM Aortic aneurysm, 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 at 1211 EDT Received in formalin labeled 4 Walder, aortic aneurysm is a segment of vessel consistent with aorta, 7 cm in length ranging from 4 cm to 6.5 cm in diameter. The adventitia is purple-eaton and membranous to focally erythematous. The intima is yellow-eaton and glistening with dark yellow crisp plaque-like areas. The wall ranges from 0.2 cm to 0.3 cm in thickness. [employer] sections are submitted in a single cassette. (1, ss, [id number], m8.1) . Performed By: #### SURG #### [facility] ([id number]) [address] [place] [address] VIR [facility] ([facility]) [address] [place] [address] VIR POCT ABG RAPID K GLU HH Collected: 12/07 10:19 AM Status: COMPLETED Source: [facility] TYPE CODE TESTS RESULT OUT OF RANGE REFERENCE UNITS LAB IK PORTABLE POTASSIUM 3.4 Low 3.5-5.0 mmol/L LAB IGLU PORTABLE GLUCOSE 152 High 65-99 mg/dL LAB IHGB PORTABLE HGB 9.2 Low 13.0-17.0 g/dL LAB IHCT PORTABLE HEMATOCRIT 28 Low Alert 39-47 % LAB STYP SAMPLE TYPE Arterial LAB TEMP BODY TEMP 37.00 >=37 C LAB PH PH ARTERIAL 7.407 7.350-7.450 NA LAB PCO2 PCO2 ARTERIAL 43.9 35.0-45.0 mmHg LAB PO2 PO2 ARTERIAL 465 High 80-100 mmHg LAB BE BASE,EXCESS 2.9 High 0.0-2.0 mmol/L LAB HCO3 HCO3 ARTERIAL 27.6 High 22.0-26.0 mmol/L LAB SO2M %O2 SATURATION ARTERIAL 100.5 >90.0 % LAB ALN POC BEATRIZ'S TEST NA LAB SSIT SAMPLE SITE A LINE LAB FIO2 INSP. O2 CONC. 100.0 % LAB SPO2 SPO2 465.0 % Performed By: #### HRTN #### [facility] ([facility]) [address] [place] [address] VIR POCT ABG RAPID K GLU ICA HH Collected: 01/04/20 8:00 AM Status: COMPLETED Source: [facility] TYPE CODE TESTS RESULT OUT OF RANGE REFERENCE UNITS LAB IK PORTABLE POTASSIUM 3.7 3.5-5.0 mmol/L LAB IGLU PORTABLE GLUCOSE 132 High 65-99 mg/dL LAB IHGB PORTABLE HGB 13.8 13.0-17.0 g/dL LAB IHCT PORTABLE HEMATOCRIT 42 39-47 % LAB IICA PORTABLE ICA 4.8 4.5-5.3 mg/dL LAB STYP SAMPLE TYPE Arterial LAB TEMP BODY TEMP 37.00 >=37 C LAB PH PH ARTERIAL 7.548 High 7.350-7.450 NA LAB PCO2 PCO2 ARTERIAL 32.2 Low 35.0-45.0 mmHg LAB PO2 PO2 ARTERIAL 295 High 80-100 mmHg LAB BE BASE,EXCESS 5.6 High 0.0-2.0 mmol/L LAB HCO3 HCO3 ARTERIAL 28.0 High 22.0-26.0 mmol/L LAB SO2M %O2 SATURATION ARTERIAL 100.5 >90.0 % LAB ALN POC BEATRIZ'S TEST NA LAB SSIT SAMPLE SITE A LINE LAB FIO2 INSP. O2 CONC. 100.0 % Performed By: #### [id number] ### # [facility] ([facility]) [address] [place] [address] VIR POCT IMAGN Collected: 01/03/2025 8:00 AM S tatus: COMPLETED Source: [facility] TYPE CODE TESTS RESULT OUT OF RANGE REFERENCE UNITS LAB IMAGN PORTABLE IONIZED MAGNESIUM 0.52 0.45-0.60 mmol/L Performed By: #### IMAGN ### # [facility] ([facility]) [address] [place] [address] VIR REPEATED ABORH Collected: 01/03/2025 6:26 AM Status: X Source: [facility] TYPE CODE TESTS RESULT OUT OF RANGE REFERENCE UNITS LAB ABORHR(LOINC) REPEATED ABORH ABORHR REPEA CAYLA ABORH Cancelled PORTABLE PROTIME Collected: 01/03/2025 6:24 AM Status: COMPLETED Source: [facility] TYPE CODE TESTS RESULT OUT OF RANGE REFERENCE UNITS LAB IINR PORTABLE INR 1.1 0.9-1.2 NA Performed By: #### IPRO #### [facility] (TT) [address] [place] [address] VIR COMPLETE BLOOD COUNT Collected: 12/26/2024 9:40 AM Status: COMPLETED Source: [facility] TYPE CODE TESTS RESULT OUT OF RANGE REFERENCE UNITS LAB WBC(LOINC) WBC COUNT 8.4 4.0-11.0 X10E9/L LAB RBC(LOINC) RBC COUNT 4.48 4.10-5.70 X10E12/L LAB HGB(LOINC) HEMOGLOBIN 14.6 13.0-17.0 g/dL LAB HCT(LOINC) HEMATOCRIT 43.0 39-49 % LAB MCV(LOINC) MCV 96 80-100 fL LAB MCH(LOINC) MCH 32.7 27-34 pg LAB MCHC(LOINC) MCHC 34.0 32-36 g/dL LAB RDW(LOINC) RDW 12.5 11.5-15.0 % LAB PLTC(LOINC) PLATELET COUNT 147 Low 150-450 X10E9 /L LAB MPV(LOINC) MPV 9.2 7-12 fL Performed By: #### CBC, PINR , 53243-6, HA1C, CMP #### [facility] ([id number]) [address] [facility], [address] [place] [address] PROTIME AND INR Collected: 12/26/2024 9:40 AM Status: COMPLETED Source: [facility] TYPE CODE TESTS RESULT OUT OF RANGE REFERENCE UNITS LAB PROX(LOINC) PROTIME 25.2 High 9.8-13.2 sec LAB INR(LOINC) INR 2.2 High 0.9-1.2 Performed By: #### CBC, PINR , 14555-5, HA1C, CMP #### [facility] ([id number]) [address] [place] [address], [address] [place] [address] APTT Collected: 12/26/2024 9:40 AM S tatus: COMPLETED Source: [facility] TYPE CODE TESTS RESULT OUT OF RANGE REFERENCE UNITS LAB PTT(LOINC) APTT 35 26-37 sec Performed By: #### CBC, PINR , 55998-1, HA1C, CMP #### [facility] ([id number]) [address] [place] [address], [facility] [address] [place] [id number] HGB A1C (GLYCO-HGB) Collected: 12/26/2024 9:40 AM Status: COMPLETED Source: [facility] TYPE CODE TESTS RESULT OUT OF RANGE REFERENCE UNITS LAB HBA1C(LOINC) HEMOGLOBIN A1C 5.6 4.4-5.6 % Result Comment: NOTE ADA Guidelines Result HgbA1c Normal : less than 5.7 % Prediabetes : 5.7 % to 6.4 % Diabetes : > 6.4 % Use with caution in patients with abnormal hemoglobin variants as the half-life of red blood cells and in vivo glycation rates are affected. LAB EAG(LOINC) AVERAGE GLUCOSE 114 mg/dL Performed By: #### CHRISTIANE, PINR , 69469-9, HA1C, CMP #### [facility] ([id number]) [address] [place] [address], [address] [address] COMPREHENSIVE METABOLIC PANEL Collected: 2024 9:40 AM Status: COMPLETED Source: [facility] TYPE CODE TESTS RESULT OUT OF RANGE REFERENCE UNITS LAB NA(LOINC) SODIUM 139 134-146 mmol/L LAB K(LOINC) POTASSIUM 4.0 3.5-5.0 mmol/L LAB CL(LOINC) CHLORIDE 103 98-109 mmol/L LAB CO2(LOINC) CARBON DIOXIDE 26 22-32 mmol/L LAB AGAP(LOINC) ANION GAP 10 5-15 mmol/L LAB BUN(LOINC) BLOOD UREA NITROGEN 23 5-27 mg/dL LAB CRET(LOINC) CREATININE 0.92 0.60-1.30 mg/dL Result Comment: METHOD TRACE ABLE TO IDMS STANDARD LAB GLU(LOINC) GLUCOSE 123 High 65-99 mg/dL LAB CA(LOINC) CALCIUM 9.4 8.5-10.5 mg/dL LAB TP(LOINC) TOTAL PROTEIN 6.9 6.0-8.0 g/dL LAB ALB(LOINC) ALBUMIN 4.4 3.2-5.3 g/dL LAB ALK(LOINC) ALKALINE PHOSPHATASE 69 39-130 U/L LAB AST(LOINC) AST 20 0-41 U/L LAB ALT1(LOINC) ALT 11 0-40 U/L LAB TBIL(LOINC) BILIRUBIN,TOTAL 0.6 0.3-1.2 mg/d L LAB EGFR(LOINC) eGFR (CKD-EPI) NON-RACE DEPENDENT 85 >59 ml/min/1 .73sq.m Result Comment: Reported eGFR is based on the CKD-EPI 2020 equation that does not use a race coefficient. Performed By: #### CBC, PINR , 92493-0, HA1C, CMP #### [facility] ([id number]) [address] [place] [address] [address] [place] [address] PATIENT EDUCATION Observed: 12/05/2024 10:31 AM Status: F Source: [facility] Patient Education Urology Benign Prostatic Hyperplasia Benign [...] Follow these instructions at home: ??? Take kuqm-ntg-zirgiil and prescription medicines only as told by [...] pain. ??? Your symptoms do not get better with treatment. ??? You develop side effects from the medicine you are taking. ??? Your urine becomes very dark or has a bad smell. ??? Your lower abdomen becomes distended and you have trouble passing urine. Get help right away if: ??? You have a fever or chills. ??? You suddenly cannot urinate. ??? You feel light-headed or very dizzy, or you faint. ??? There are large amounts of blood or clots in your urine. ??? Your urinary problems become hard to manage. ??? You develop moderate to severe low back or flank pain. The flank is the side of your body between the ribs and the hip. These symptoms may be an emergency. Get help right away. Call 911. ??? Do not wait to see if the symptoms will go away. ??? Do not drive yourself to the hospital. Summary ??? Benign prostatic hyperplasia (BPH) is an enlarged prostate that is caused by the normal aging process. It is not caused by cancer. ??? An enlarged prostate can press on the urethra. This can make it hard to pass urine. ??? This condition is more likely to develop in men older than 50 years. ??? Get help right away if you suddenly cannot urinate. This information is not intended to replace advice given to you by your health care provider. Make sure you discuss any questions you have with your health care provider. Document Revised: 03/12/2022 Document Reviewed: 03/12/2022 [employer] Patient Education ? 2023 Before the Call. AMBULATORY VISIT SUMMARY Observed: 12/05 10:08 AM Status: F Source: [facility] Ambulatory Visit Summary DEBBI KEATING Gail :1945 Visit Date:12/05/2024 Ambulatory Visit Instructions Your Diagnosis History of prostate cancer Impotence BPH with urinary obstruction Anticoagulated Other obstructive and reflux uropathy Your Care Team Attending Physician - SHANNAN HANKINS PA-C Primary Care Physician - BOOKER VILLEDA [...] Schedule the Following Appointments Follow Up with [facility] TAMEZ, JENNIFER YATES When: In 1 year Where: 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 Take akxb-iuz-ebqmxha and prescription medicines only as told by [...] pain. ??? Your symptoms do not get better with treatment. ??? You develop side effects from the medicine you are taking. ??? Your urine becomes very dark or has a bad smell. ??? Your lower abdomen becomes distended and you have trouble passing urine. Get help right away if: ??? You have a fever or chills. ??? You suddenly cannot urinate. ??? You feel light-headed or very dizzy, or you faint. ??? There are large amounts of blood or clots in your urine. ??? Your urinary problems become hard to manage. ??? You develop moderate to severe low back or flank pain. The flank is the side of your body between the ribs and the hip. These symptoms may be an emergency. Get help right away. Call 911. ??? Do not wait to see if the symptoms will go away. ??? Do not drive yourself to the hospital. Summary ??? Benign prostatic hyperplasia (BPH) is an enlarged prostate that is caused by the normal aging process. It is not caused by cancer. ??? An enlarged prostate can press on the urethra. This can make it hard to pass urine. ??? This condition is more likely to develop in men older than 50 years. ??? Get help right away if you suddenly cannot urinate. This information is not intended to replace advice given to you by your health care provider. Make sure you discuss any questions you have with your health care provider. Document Revised: 03/12/2022 Document Reviewed: 03/12/2022 [employer] Patient Education ??? 2023 Before the Call. UROLOGY OFFICE/CLINIC NOTE Observed: 10:08 AM Status: F Source: [facility] Urology Office/Clinic Note Chief Complaint 6 month [...] rashes or suspicious lesions Assessment/Plan Prior Dr. Salcedo pt. Current Dr. Rapp pt. Accompanied by his today. 1. History of prostate cancer (Z85.46: Personal history of malignant neoplasm of prostate) PSA: 10/29/21- 0.12 11/03/22 - 0.12 10/22/23 - 0.07 10/26/24 - 0.04 S/p brachytherapy 08/05/18. PSA low. Follows w/ Dr. Carson annually. Ordered: E&M of Est. Patient Moderate 30-39 Min 67726 2. Impotence (N52.9: Male erectile dysfunction, unspecified) [...] E&M of Est. Patient Moderate 30-39 Min 63275 3. BPH with urinary obstruction (N40.1: Benign [...] E&M of Est. Patient Moderate 30-39 Min 33490 4. Anticoagulated (Z79.01: FPC (current) use of anticoagulants) Warfarin. Elevated risk for periop complications. [1] Ordered: E&M of Est. Patient Moderate 30-39 Min 02930 Other obstructive and reflux uropathy (N13.8: Other obstructive and reflux uropathy) Orders: cephalexin, 500 mg = 1 cap(s), Oral, As Directed, Pt to take 1 tab the day before procedure and the 2nd tab the day of procedure once completed., # 2 cap(s), Refills(s) 0, Pharmacy: [facility], 177, cm, 02/16/24 14:01:00 EDT, Height/Length Dosing, 63.7,... 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 DVT of leg (deep venous thrombosis) History of prostate cancer Hx of nursing home use of blood thinners Impotence Inguinal hernia, [...] 20 mg= 1 tab(s), Oral, BID, PRN Entresto 49 mg-51 mg oral tablet Jardiance 10 mg oral tablet LORazepam 0.5 mg Tab, 0.5 mg= 1 tab(s), Oral, Once a day (at bedtime) MetFORMIN (Eqv-Glucophage XR) 500 mg oral tablet, extended release tadalafil 20 mg Tab, See Instructions, 3 refills tamsulosin 0.4 mg Cap, 0.4 mg= 1 cap(s), Oral, BID, 11 refills warfarin, 5 mg, Oral, Daily Allergies No Known Medication Allergies Social History Alcohol - Denies Alcohol Use, 01/13/2020 Substance Abuse - Denies Substance Abuse, 01/13/2020 Tobacco - Denies Tobacco Use, 07/07/2019 Former smoker, quit more than 30 days ago Tobacco Use:. Never Smokeless Tobacco Use:. Cigarettes, Household tobacco concerns: No. Yes, 12/05/2024 Family History Diabetes: Mother and Father. Primary malignant neoplasm of female breast: Sister. Primary malignant neoplasm of prostate: Brother. Prostate cancer: Brother. Immunizations Vaccine Date Status influenza virus vaccine, inactivated 06/19/2022 Recorded SARSCoV2 mRNA(dxerevemf-kqxk-zfrmsx) vac 04/25/2022 Recorded SARSCoV2 mRNA(yyzujmltg-cidm-isrosg) vac 12/05/2021 Recorded influenza virus vaccine, inactivated 07/16/2021 Recorded SARS-CoV-2 (COVID-19) mRNA BNT-162b2 vax 06/08/2021 Recorded SARS-CoV-2 (COVID-19) mRNA-1273 vaccine 11/27/2020 Recorded SARS-CoV-2 (COVID-19) mRNA-1273 vaccine 11/27/2020 Recorded SARS-CoV-2 (COVID-19) mRNA-1273 vaccine 11/05/2020 Recorded SARS-CoV-2 (COVID-19) mRNA-1273 vaccine 11/05/2020 Recorded influenza virus vaccine, inactivated 07/2020 Recorded influenza virus vaccine, inactivated 07/2020 Recorded influenza virus vaccine, inactivated 05/18/2020 Recorded pneumococcal 23-valent vaccine 08/15/2019 Recorded influenza virus vaccine, inactivated 06/02/2019 Recorded pneumococcal 13-valent vaccine 06/09/2018 Recorded influenza virus vaccine, inactivated 06/09/2018 Recorded pneumococcal 13-valent vaccine 10/23/2017 Recorded influenza virus vaccine, inactivated 06/11/2017 Recorded influenza virus vaccine, inactivated 06/13/2016 Recorded influenza virus vaccine, inactivated 06/15/2015 Recorded [1] URO- Worsening BPH; SHANNAN HANKINS PA-C 02/16/2024 14:43 EDT Result Comment: Electronical ly Signed By: SHANNAN HANKINS PA-C\.br\Date and Time Signed: 12/05/24 10:[address] CTA CHEST Observed: 11/22/2024 8:21 AM Status: COMPLETED Source: [facility] CT CTA CHEST CLINICAL INFORMATION: Acute aortic [...] Harley Rowe MD on 11/25/2024 9:39 AM BASIC METABOLIC PANL Collected: 11/22/2024 7:26 AM Status: COMPLETED Source: [facility] TYPE CODE TESTS RESULT OUT OF RANGE REFERENCE UNITS LAB NA(LOINC) SODIUM 134 134-146 mmol/L LAB K(LOINC) POTASSIUM 3.5 3.5-5.0 mmol/L LAB CL(LOINC) CHLORIDE 101 98-109 mmol/L LAB CO2(LOINC) CARBON DIOXIDE 28 22-32 mmol/L LAB AGAP(LOINC) ANION GAP 5 5-15 mmol/L LAB BUN(LOINC) BLOOD UREA NITROGEN 19 5-27 mg/dL LAB CRET(LOINC) CREATININE 1.00 0.70-1.20 mg/dL Result Comment: METHOD TRACE ABLE TO IDMS STANDARD LAB GLU(LOINC) GLUCOSE 115 High 65-99 mg/dL LAB CA(LOINC) CALCIUM 9.1 8.5-10.5 mg/dL LAB EGFR(LOINC) eGFR (CKD-EPI) NON-RACE DEPENDENT 77 >59 ml/min/1. 73sq.m Result Comment: Reported eGFR is based on the CKD-EPI 2020 equation that does not use a race coefficient. Performed By: #### BMP #### [facility] ([id number]) [address] [facility], [place] [address] PROVIDER LETTER Observed: 11/15/2024 4:38 PM Status: F Source: [facility] Provider Letter November 15, 2024 DEBBI KEATING [address] [place] [address] : 1945 Dear Debbi, We have been trying to reach you with no success. You have an appointment with Dr. Zeferino Rapp on 12/05/24 which will need to be rescheduled since he will be out of the office that day. Please contact the office at the number listed below to get this appointment rescheduled at your earliest convenience. Thank you for your prompt attention to this matter. Sincerely, [facility] [place] [address] LIPID PROFILE Collected: 11/07/2024 8:29 AM Status: COMPLETED Source: [facility] TYPE CODE TESTS RESULT OUT OF RANGE REFERENCE UNITS LAB CHOL(LOINC) CHOLESTEROL 146 Low 150-200 mg/dL LAB TRIG(LOINC) TRIGLYCERIDE 86 27-150 mg/dL LAB HDL(LOINC) HDL CHOLESTEROL 58 >39 mg/dL Result Comment: HDL <40 mg/dL - High Risk HDL > or = 40mg/dL- Desirable HDL >60 mg/dL - Negative Risk LAB VLDL(LOINC) VERY LOW LIPOPROTEIN 17 0-30 mg/dL LAB LDL(LOINC) LDL (CALC) 71 <130 mg/dL Result Comment: LDL <100 mg/dL - Desirable LDL >160 mg/dL - High Risk LAB CHDL(LOINC) CHOLESTEROL:HDL 2.5 1.0-5.0 Performed By: #### 99954-7, 2132-9, 33237-0 #### [facility] ([id number]) [address] [place] [address], [facility] [address] [place] [address] VITAMIN B12 Collected: 11/07/2024 8:29 AM S tatus: COMPLETED Source: [facility] TYPE CODE TESTS RESULT OUT OF RANGE REFERENCE UNITS LAB [facility] VITAMIN B12 559 180-914 pg/mL Performed By: #### 76520-2, 2132-9, 06965-7 #### [facility] ([id number]) [address] [place] [address], [address] [place] [address] VITAMIN D 25 HYD TOT Collected: 11/07/2024 8:29 AM Status: COMPLETED Source: [facility] TYPE CODE TESTS RESULT OUT OF RANGE REFERENCE UNITS LAB [facility] VITAMIN D 25 HYD TOT 44.3 30-100 ng/mL Result Comment: Vitamin D status 25 [place] Vitamin D Deficiency <20 ng/mL Insufficiency 20-29 ng/mL Sufficiency 30-100 ng/mL Toxicity >100 ng/mL NOTE: A pediatric reference range has not been established by the on call pharmacy technician of this kit. The [place] [employer] recommends a Vitamin D level of = or >20ng/mL in infants and children. Performed By: #### 60626-8, 2132-9, 17768-6 #### [facility] ([id number]) [address] [place] [address], [address] [address] CNOV Observed: 11/03/2024 10:30 AM Status: COMPLETED Source: [facility] Office Visit (RADTSA) DEBBI KEATING ([id number]) 1945 M Date Time Provider Department 11/03/24 10:30 AM Cande CARSON During your visit today, we recorded the following information about you: Temperature Pulse Respiration Blood pressure 96.8 degrees 81/minute 18/minute 109/73 Weight 57.5 kg Cande Carson MD 11/03/2024 10:14 AM Signed Radiation Oncology - Follow Up Note PATIENT NAME: Debbi Keating PATIENT DIAGNOSIS: Prostate adenocarcinoma, initial PSA 6.59, biopsy Richmond score 3 + 3 = 6 (grade [...] ASSESSMENT/PLAN: Prostate adenocarcinoma, 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 Patient overall doing well. PSA low, and stable. Plan to see patient back in 1 year with repeat PSA. Signed by: Cande Carson MD cc: Booker Villeda DO Portions of the above note extracted and edited from previous visit as well as active information included in the EMR. Alize Pinedo RN 11/03/2024 10:14 AM Signed AUA 22 Alize Pinedo RN Allergies As of Date: 11/03/2024 (No Known Allergies) Date Reviewed: 11/03/2024 Reviewed by: Alize Pinedo RN - Fully Assessed Reason for Visit: Prostate Cancer [590] Primary Visit Diagnosis:Prostate cancer (HCC) [C61] Order(s):PROSTATE-SPECIFIC ANTIGEN DIAGNOSTIC [SQPSA] Order #: [id number] FUTURE Prescriptions as of 11/03/2024 - metFORMIN [...] Service: OFFICE/OUTPATIENT ESTABLISHED SF MDM 10 MIN [59462] Disposition: Return in about 1 year (around 11/03/2025). Follow-up and Disposition History for Encounter Date Provider Department Center 11/03/2024 [id number] CARSON PAUL Suarez Encounter Status:Closed by Cande CARSON on 11/03/24 PROGRESS Observed: 11/03/2024 10:00 AM Status: COMPLETED Source: [facility] HNO ID: [id number] Author: ALIZE PINEDO RN Service: ? Author Type: Registered Nurse Type: Progress Notes Filed: 11/03/2024 10:14 Note Text: AUA 22 Alize Pinedo RN PROGRESS Observed: 11/03/2024 9:50 AM Status: COMPLETED Source: [facility] HNO ID: [id number] Author: Cande CARSON MD Service: ? Author Type: Physician Type: Progress Notes Filed: 11/03/2024 10:14 Note Text: Radiation Oncology - Follow Up Note PATIENT NAME: Debbi Keating PATIENT DIAGNOSIS: Prostate adenocarcinoma, initial PSA 6.59, [...] year with repeat PSA. Signed by: Cande Carson MD cc: Booker Villeda DO Portions of the above note extracted and edited from previous visit as well as active information included in the EMR. PSA SERPL-MCNC Collected: 1:32 PM Status: F Source: [facility] Order Comment: Specimen Type : BLOOD SPECIMEN Ordering Facility: [facility] Address: [address] [place] [address] TYPE CODE TESTS RESULT OUT OF RANGE REFERENCE UNITS LAB 2857-1(LOINC) PSA SerPl-mCnc 0.04 <2.60 ng/mL Result Comment: Total PSA te st methodology used is the Electrochemiluminescence Immunoassay by [employer]. Total PSA values by differing methodologies cannot be interchanged. Performed By: #### 2857-1 ## ## [facility] CLIA [id number] [address] [place] [address] [place] [address] [place] COMPLETE BLOOD COUNT AUTO DIFF Collected: 08/19/2024 10:51 AM Status: F Source: [facility] TYPE CODE TESTS RESULT OUT OF RANGE REFERENCE UNITS LAB WBC White Blood Count 7.7 Normal 4.1-10.5 10*3/uL LAB UNWBC Uncorrected WBC 7.7 Normal 4.1-10.5 10*3/uL LAB RBC Red Blood Count 4.12 Normal 3.90-5.60 10*6/u L LAB HGB Hemoglobin 14.1 Normal 13.0-17.0 g/dL LAB HCT Hematocrit 40.8 Normal 38.8-50.0 % LAB MCV Mean Corpuscular Volume 98.9 Normal 83.5-101 fL LAB MCH Mean Corpuscular Hemoglobin 34.1 Normal 27.5-35.2 pg LAB MCHC Mean Corpuscular HGB Conc 34.5 Normal 32.5-35.6 g/dL LAB RDW Red Cell Distribution Width 15.7 High 12.0-14.8 % LAB PLT Platelet Count 171 Normal 150-450 10*3/uL LAB MPV Mean Platelet Volume 9.5 Normal 6.6-10.1 fL LAB NE% Neutrophils % (Auto) 72.2 . % LAB LY% Lymphocytes % (Auto) 16.4 . % LAB MO% Monocytes % (Auto) 8.1 . % LAB EO% Eosinophils % (Auto) 2.0 . % LAB BA% Basophils % (Auto) 1.3 . % LAB NRBC% NRBC% 0.1 Normal 0-0.5 /100{WBC} LAB NE# Neutrophils # (Auto) 5.6 Normal 1.8-7.7 10*3/uL LAB LY# Lymphocytes # (Auto) 1.3 Normal 1.00-4.8 10*3/uL LAB MO# Monocytes # (Auto) 0.6 Normal 0.0-0.8 10*3/uL LAB EO# Eosinophils # (Auto) 0.2 Normal 0.0-0.45 10*3/uL LAB BA# Basophils # (Auto) 0.1 Normal 0.0-0.2 10*3/uL Result Comment: PERFORMED BY : [address] [address] PATHOLOGIST PSYCHIATRIC SPECIALIST AMY ERICKSON M.D. Performed By: #### CBC, CMP, TSH3 wRFLX #### [address] [place] [address] [facility] COMPREHENSIVE METABOLIC PANEL Collected: 08/19/2024 1 0:51 AM Status: F Source: [facility] Order Comment: NONFASTING.JK W TYPE CODE TESTS RESULT OUT OF RANGE REFERENCE UNITS LAB GLU Glucose 146 High 70-100 mg/dL Result Comment: Random Gluco se Reference Range is dependent on time and content of last meal. Glucose of more than 200 mg/dL in a nonstressed, ambulatory subject supports the diagnosis of Diabetes Mellitus. ADA recommended reference range LAB BUN Blood Urea Nitrogen 17 Normal 7-25 mg/d L LAB CREATT Creatinine 0.92 Normal 0.70-1.30 mg/dL LAB GFReNR Estimated GFR >60.0 mL/Min LAB NA Sodium 135 Low 136-145 mmol/L LAB K Potassium 4.2 Normal 3.5-5.1 mmol/L LAB CL Chloride 97 Low 98-107 mmol/L LAB CO2 Carbon Dioxide 33.4 High 21.0-31.0 mmol/L LAB GAP Anion Gap 8.8 Normal 6.0-15.0 meq/L LAB CA Calcium 9.3 Normal 8.6-10.3 mg/dL LAB TP Total Protein 6.6 Normal 6.4-8.9 g/dL LAB ALB Albumin Level 4.4 Normal 3.5-5.7 g/dL LAB GLOB Globulin 2.2 g/dL LAB AGRATIO Albumin/Globulin Ratio 2.0 LAB BILIT Bilirubin,Total 0.7 Normal 0.3-1.0 mg/dL LAB AST Aspartate Amino Transferase 16 Normal 13-39 U/L LAB ALT Alanine Aminotransferase 10 Normal 7-52 U/L LAB ALP Alkaline Phosphatase 61 Normal 34-104 U/L Performed By: #### CBC, CMP, TSH3 wRFLX #### [facility] [address] [place], [place] [id number] [facility] THYROID STIM HORMONE W/RFLX Collected: 08/19/2024 10:51 AM Status: F Source: [facility] Order Comment: NONFASTING.JK W TYPE CODE TESTS RESULT OUT OF RANGE REFERENCE UNITS LAB TSH3 wRFLX Thyroid Stim Hormone w/Rflx 1.52 Normal 0.45-5.33 u[iU]/mL Result Comment: PERFORMED BY : [place] [address] PATHOLOGIST PSYCHIATRIC SPECIALIST AMY ERICKSON M.D. Performed By: #### CBC, CMP, TSH3 wRFLX #### [facility] [address] [id number] [facility] REMINDERS Observed: 06/07/2024 10:57 AM Status: C Source: [facility] Reminders From: Aleja Petersen To: EU - Administrative; Sent: 06/07/2024 10:57:59 EDT Show up: 10/08/2024 09:57:00 EST Subject: 6 MO F/U Due Date/Time: 12/06/2024 10:57:00 EDT Reminder/Recall PT SEEN ON 06/07/2024 FOR A CYSTO. PT NEEDS A 6 MO F/U W/ [place] IN [place]. 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 Patient does have an appointment with Dr. Rapp in November that will need rescheduled OPERATIVE REPORT Observed: 06/07/2024 10:47 AM Status: F Source: [facility] Operative Report Patient: DEBBI KEATING Age: 78 years Sex: Male : 1945 Associated Diagnoses: None Author: MELVIN BRAMBILA, Zeferino Jose Procedure Operative Information Details: Date/ Time: 06/07/2024 [...] a day. He will follow-up with Ivonne Hankins in 6 months.. Result Comment: Electronical ly Signed By: Zeferino RAPP MD\.br\Date and Time Signed: 06/07/24 10:49 EDT PATIENT EDUCATION Observed: 06/07/2024 10:46 AM Status: C Source: [facility] Patient Education Custom Cystoscopy ? Voiding after [...] you have a fever over 100 degrees. MAIN OR INTRAOPERATIVE RECORD Observed: 06/07/2024 10:39 AM Status: F Source: [facility] Main OR Intraoperative Recor d IntraOp Document Type FTURO Summary Primary Physician: Zeferino RAPP MD Finalized Date/Time: 06/07/24 10:49:30 Pt. Name: DEBBI KEATING/Sex: 1945 Male Med Rec #: [id number] Physician: Zeferino RAPP MD Financial #: [id number] Pt. Type: O Room/Bed: / Admit/Disch: 06/07/24 09:28:23 - Institution: Case Times FTURO Entry 1 Patient Times In Room 06/07/24 10:31:00 Out Room 06/07/24 10:49:00 Procedure Times Start 06/07/24 10:39:00 Stop 06/07/24 10:45:00 Anesthesia Times Last Modified By: Darrell WHITE, Nancy Owen 06/07/24 10:45:33 Case Attendance FTURO Entry 1 Entry 2 Entry 3 Case Attendee MELVIN BRAMBILA, Zeferino Ramírez RN, Nancy Lund CST, Niurka Owen Role Performed Surgeon - Primary Elementary Special Education Teacher - Primary Scrub - Primary Time In 06/07/24 10:31:00 06/07/24 10:31:00 06/07/24 10:31:00 Time Out 06/07/24 10:49:00 06/07/24 10:49:00 06/07/24 10:49:00 Procedure CYSTOSCOPY LOCAL(.) CYSTOSCOPY LOCAL(.) CYSTOSCOPY LOCAL(.) Comments Last Modified By: Darrell WHITE, Nancy Ramírez RN, Nancy Ramírez RN, Nancy Owen 06/07/24 Miranda Owen 06/07/24 Miranda Owen 06/07/24 10:45:36 10:45:36 10:45:36 Surgical Procedures FTURO Entry 1 Procedure Description Procedure CYSTOSCOPY LOCAL Modifiers . Surgeon Description CYSTOSCOPY Primary Procedure Yes Primary Surgeon MELVIN BRAMBILA, Zeferino Jose Start 06/07/24 10:39:00 Stop 06/07/24 10:45:00 Anesthesia [...] HISTORY OF PROSTATE CANCER Last Modified By: Darrell WHITE, Nancy Owen 06/07/24 10:31:48 Post-Care Text: The patient is [...] Position Verified Availability Equipment, Medication Time Out Zeferino RAPP MD, Verified (If Participants Nancy Ramírez RN Applicable) Ashely Malik CST, Kimberly A Time Out Complete 06/07/24 10:38:00 Allergies Reviewed? [...] Nancy Ramírez RN 06/07/24 10:45:34 Case Comments <None> Finalized By: Nancy Ramírez RN Document Signatures Signed By: Nancy Ramírez RN 06/07/24 10:49 MAIN OR PREOPERATIVE RECORD Observed: 10:30 AM Status: C Source: [facility] Main OR Preoperative Record Holding Area Document Type FTURO Summary Primary Physician: Zeferino RAPP MD Finalized Date/Time: 06/07/24 10:17:48 Pt. Name: DEBBI KEATING/Sex: 1945 Male Med Rec #: [id number] Physician: Zeferino RAPP MD Financial #: [id number] Pt. Type: O Room/Bed: / Admit/Disch: 06/07/24 [...] Yes Post Void Last Modified By: Devorah Kaye 06/07/24 10:17:43 Finalized By: Devorah Kaye Document Signatures Signed By: Devorah Kaye 06/07/24 10:17Devorah Kaye 06/07/24 10:17 PATIENT LETTER [facility] Observed: 04/14/2024 12:05 PM Status: F Source: [facility] Patient Letter [facility] April 14, 2024 DEBBI KEATING [address] [place] [address] : 1945 Dear Mr. Debbi Keating , You missed your scheduled appointment on: 03/15/[address] Rapp for your bladder scope. Please note our [...] Sincerely, [facility]; , Option #3 LAB REPORTS Observed: 01/16/2024 5:33 PM Status: F Source: [facility] [id number]#[id number] LAB REPORTS Observed: 10/22/2023 5:33 PM Status: F Source: [facility] [id number]#1.00TIFF ALLERGIES DATE TYPE / CODE NAME / CODE REACTION SEVERITY SOURCE 03/06/2025 Drug Allergy/4160 84506(SNOMED CT) No Known Allergies/X656790527( RXNORM) Unknown [facility] DR/264351776 (SNOMED CT) Tamsulosin Hydrochloride 894847687~251080 013 [facility] DR/214934041 (SNOMED CT) No Known Medication Allergies [facility] Drug Class/022633 003(SNOMED CT) NO KNOWN ALLERGIES [facility] [place] Drug Class/390803 003(SNOMED CT) NO KNOWN ALLERGIES [facility] ENCOUNTERS ADMIT/DISCHARGE ACCOUNT NUMBER ADMITTING ENCOUNTER CLASS LOCATION SOURCE 03/14/2025 [id number] Ambulatory Buildin 3 9 [facility] 03/13/2025/ 025 [id number] [facility] 03/07/20[facility]/ 025 [id number] Ambulatory Building:[facility] 03/06/2025/ 025 [id number] Isabel [facility] 03/02/2025/ 025 [id number] Ambulatory Buildin 4 [facility] 03/02/2025/ 025 [id number] Ambulatory Building:[facility] 02/20/2025/ 025 [id number] Ambulatory Building:[facility] 02/16/2025/ 025 [id number] [facility] ng:[facility] 02/14/2025/ 025 [id number] Ambulatory Building:[facility] 02/09/2025 [id number] Ambulatory Building:[facility] 02/02/2025/ 025 [id number] Ambulatory Buildin 9 [facility] 01/16/2025/ 025 [id number] Ambulatory Building:[facility] 01/16/2025/ 025 [id number] Ambulatory Buildin 0 [facility] 01/11/2025/ 025 [id number] Ambulatory Building:[facility] 01/10/2025/ 025 [id number] Ambulatory Building:[facility] 01/03/2025 [id number] [facility] 01/03/2025/ 025 [id number] KO LARA Inpatient Encounter Building:PTH _R6WACUTERoo m: L184Yqb: 01 [facility] 12/26/2024/ 025 [id number] Ambulatory Building:[facility] 12/26/2024/ 025 [id number] Ambulatory Building:[facility] 12/23/2024/ 025 [id number] Ambulatory Building:[facility] 12/16/2024/ 025 [id number] Ambulatory Building:[facility] 12/12/2024/ 025 [id number] Ambulatory Buildin 0 [facility] 12/05/2024/ 025 [id number] [facility]am 2 [facility] 11/22/2024/ 025 [id number] [facility] 11/22/2024/ 025 [id number] [facility] 11/22/2024/ 025 [id number] [facility] 11/14/2024/ 025 [id number] Ambulatory Buildin 4 [facility] 11/11/2024/ 025 [id number] Ambulatory Building:[facility] 11/07/2024/ 025 [id number] [facility] 11/03/2024/ 025 [id number] [facility]/26/20[facility]/ 025 [id number] [facility]AL[facility] 10/07/2024/ 025 [id number] Ambulatory Building:[facility] 09/23/2024/ 025 [id number] Asaad, Imad [facility] 09/12/2024/ 025 [id number] Ambulatory Building:[facility] 08/19/2024/ 024 [id number] Booker Villeda [facility] 08/09/2024/ 024 [id number] Ambulatory Building:[facility] 07/26/2024/ 024 [id number] Ambulatory Building:[facility] 06/28/2024/ 024 [id number] Ambulatory Building:[facility] 06/21/2024/ 024 [id number] Ambulatory Buildin 4 [facility] 06/07/2024/ 024 [id number] Zeferino RAPP Ambulatory FTBuilding :FT.URO [facility] 06/06/2024/ 024 [id number] Ambulatory Building:[facility] 05/27/2024/ 024 [id number] Ambulatory Building:[facility] 05/20/2024/ 024 [id number] Ambulatory Building:[facility] 05/11/2024/ 024 [id number] Ambulatory Building:[facility] 04/22/2024/ 024 [id number] Ambulatory Building:[facility] 03/25/2024/ 024 [id number] Ambulatory Building:[facility] 03/21/2024/ 024 [id number] Ambulatory Buildin 4 [facility] 03/16/2019 [id number] Ambulatory CD:[id number]:CD :[id number] [facility] FUNCTIONAL STATUS No Functional Status Records Found EQUIPMENT No Equipment Records Found PAYERS ENCOUNTER GUARANTOR PAYER SUBSCRIBER SOURCE 03/14/2025 DEBBI RICHARDLESLYB: [address], [place] [address]Blu: (HP) Primary Insurance:ANTHEM MEDICARE ADVANTAGEPolicy Number: [id number] Date:2024-09-07 DEBBI RICHARDLESLYB: [id number] [address], [place] [address]Nqb: (HP) [facility] 03/13/2025 DEBBI RICHARDLESLYB: [address], [place] [address]Hak: (HP) Primary Insurance:ANTHEM MEDICARE ADVANTAGEPolicy Number: [id number] Date:2024-09-07 DEBBI RICHARDLESLYB: [id number] [address], [place] [address]Oiy: (HP) [facility] 03/07/2025 DEBBI RICHARDLESLYB: [address], [place] [address]Ejn: (HP) Primary Insurance:ANTHEM MEDICARE ADVANTAGEPolicy Number: [id number] Date:2024-09-07 DEBBI RICHARDTIMIDOB: [id number] [address], [place] [address]Yjy: (HP) [facility] 03/06/2025 Debbi RichardNxqoqlpny0936 [place] [address]Pnm: (HP) Primary Insurance:[facility] PFFSPolicy Number: [id number] Date:2025-03-06 Debbi Reynolds KarolinaB: [id number] [place] [address]Uqn: (HP) [facility] 03/06/2025 Secondary Insurance:Self PayPolicy Number: Effective Date:2025-03-06 NOT GIVENUNK [facility] 03/02/2025 DEBBI RICHARDWALDERDOB: [address], [place] [address]Oby: (HP) Primary Insurance:ANTHEM MEDICARE ADVANTAGEPolicy Number: [id number] Date:2024-09-07 DEBBI Reynolds FORWALDERDOB: [id number] [address], [place] [address]Nuy: (HP) [facility] 03/02/2025 DEBBI Reynolds FORWALDERDOB: [address], [place] [address]Viz: (HP) Primary Insurance:ANTHEM MEDICARE ADVANTAGEPolicy Number: [id number] Date:2024-09-07 DEBBI Reynolds FORWALDERDOB: [id number] [address], [place] [address]Wdt: (HP) [facility] 02/20/2025 DEBBI Reynolds FORWALDERDOB: [address], [place] [address]Gsu: (HP) Primary Insurance:ANTHEM MEDICARE ADVANTAGEPolicy Number: [id number] Date:2024-09-07 DEBBI Reynolds FORWALDERDOB: [id number] [address], [place] [address]Kwq: (HP) [facility] 02/16/2025 Debbi Reynolds [id number] [place] [address]Idn: (HP) Primary Insurance:[facility] PFFSPolicy Number: [id number] Date:2025-02-16 Debbi TurciosB: [id number] [place] [address]Nln: (HP) [facility] 02/16/2025 Secondary Insurance:Self PayPolicy Number: Effective Date:2025-02-16 NOT GIVENUNK [facility] 02/14/2025 DEBBI TURCIOSB: [address], [place] [address]Fkg: (HP) Primary Insurance:ANTHEM MEDICARE ADVANTAGEPolicy Number: [id number] Date:2024-09-07 DEBBI TURCIOSB: [id number] [address], [place] [address]Qsd: () [facility] 02/09/2025 DEBBI KEATINGDOB: [address] [address]Ufy: (HP) Primary Insurance:ANTHEM MEDICARE ADVANTAGEPolicy Number: [id number] Date:2024-09-07 DEBBI KEATINGDOB: [id number] [address], [place] [address]Ixm: () [facility] 02/02/2025 DEBBI MORENOERDOB: [address] [address]Ovs: (HP) Primary Insurance:ANTHEM MEDICARE ADVANTAGEPolicy Number: [id number] Date:2024-09-07 DEBBI KEATINGDOB: [id number] [address], [place] [address]Kvg: (HP) [facility] 01/16/2025 DEBBI KEATINGDOB: [address], [place] [address]Nva: (HP) Primary Insurance:ANTHEM MEDICARE ADVANTAGEPolicy Number: [id number] Date:2024-09-07 DEBBI MORENOERDOB: [id number] [address], [place] [address]Lrd: (HP) [facility] 01/16/2025 DEBBI MORENOERDOB: [address], [place] [address]Miw: (HP) Primary Insurance:ANTHEM MEDICARE ADVANTAGEPolicy Number: [id number] Date:2024-09-07 DEBBI RICHARDLESLYB: [id number] [address], [place] [address]Zik: (HP) [facility] 01/11/2025 DEBBI RICHARDJAKOBERDOB: [address], [place] [address]Jyg: (HP) Primary Insurance:ANTHEM MEDICARE ADVANTAGEPolicy Number: [id number] Date:2024-09-07 DEBBI RICHARDJAKOBERDOB: [id number] [address], [place] [address]Oww: (HP) [facility] 01/10/2025 DEBBI RICHARDJAKOBERDOB: [address], [place] [address]Ouy: (HP) Primary Insurance:ANTHEM MEDICARE ADVANTAGEPolicy Number: [id number] Date:2024-09-07 DEBBI RICHARDJAKOBERDOB: [id number] [address], [place] [address]Dsb: (HP) [facility] 01/03/2025 DEBBI RICHARDJAKOBERDOB: [address], [place] [address]Yab: (HP) Primary Insurance:ANTHEM MEDICARE ADVANTAGEPolicy Number: [id number] Date:2024-09-07 DEBBI Reynolds RISHABHDOB: [id number] [address], [place] [address]Bkq: (HP) [facility] 01/03/2025 DEBBI Reynolds MALIKAERDOB: [address], [place] [address]Uym: (HP) Primary Insurance:ANTHEM MEDICARE ADVANTAGEPolicy Number: [id number] Date:2024-09-07 DEBBI Reynolds KAROLINAB: [id number] [address], [place] [address]Ocs: (HP) [facility] 12/26/2024 DEBBI Gail TURCIOSB: [address] [address]Xbk: (HP) Primary Insurance:ANTHEM MEDICARE ADVANTAGEPolicy Number: [id number] Date:2024-09-07 DEBBI Reynolds MALIKAERDOB: [id number] [address], [place] [address]Kui: (HP) [facility] 12/26/2024 DEBBI Reynolds RISHABHDOB: [address], [place] [address]Bmp: (HP) Primary Insurance:ANTHEM MEDICARE ADVANTAGEPolicy Number: [id number] Date:2024-09-07 DEBBI Gail KAROLINAB: [id number] [address], [place] [address]Ycp: (HP) [facility] 12/23/2024 DEBBI KAROLINAB: [address], [place] [address]Rdu: (HP) Primary Insurance:ANTHEM MEDICARE ADVANTAGEPolicy Number: [id number] Date:2024-09-07 DEBBI KEATINGDOB: [id number] [address], [place] [address]Oqb: (HP) [facility] 12/16/2024 DEBBI MORENOERDOB: [address], [place] [address]Muo: (HP) Primary Insurance:ANTHEM MEDICARE ADVANTAGEPolicy Number: [id number] Date:2024-09-07 DEBBI MORENOERDOB: [id number] [address], [place] [address]Wom: (HP) [facility] 12/12/2024 DEBBI KEATINGDOB: [address], [place] [address]Ntu: (HP) Primary Insurance:ANTHEM MEDICARE ADVANTAGEPolicy Number: [id number] Date:2024-09-07 DEBBI MORENOERDOB: [id number] [address], [place] [address]Lsg: (HP) [facility] 12/05/2024 DEBBI MORENOERDOB: [address] R[address]el: ~(4 19 (HP) Primary Insurance:[facility] Number: [id number] Date:2329-76-45GZ [place] [address]JQ: [facility] MORENOBESTTri[facility] 11/22/2024 DEBBI MORENOERDOB: [address], [place] [address]Hqi: (HP) Primary Insurance:[facility] MEDICARE ADVANTAGEPolicy Number: [id number] Date:2024-09-07 DEBBI RICHARDJAKOBERDOB: [id number] [address], [place] [address]Gjn: (HP) [facility] 11/22/2024 DEBBI RICHARDWALDERDOB: [address], [place] [address]Vgi: (HP) Primary Insurance:ANTHEM MEDICARE ADVANTAGEPolicy Number: [id number] Date:2024-09-07 DEBBI RCIHARDJAKOBERDOB: [id number] [address], [place] [address]Hxv: () [facility] 11/22/2024 DEBBI RICHARDJAKOBERDOB: [address], [place] [address]Bxa: (HP) Primary Insurance:ANTHEM MEDICARE ADVANTAGEPolicy Number: [id number] Date:2024-09-07 DEBBI RICHARDWALDERDOB: [id number] [address], [place] [address]Kqw: (HP) [facility] 11/14/2024 DEBBI RICHARDWALDERDOB: [address], [place] [address]Cxg: (HP) Primary Insurance:ANTHEM MEDICARE ADVANTAGEPolicy Number: [id number] Date:2024-09-07 DEBBI RICHARDWALDERDOB: [id number] [address], [place] [address]Oqq: (HP) [facility] 11/11/2024 DEBBI RICHARDWALDERDOB: [address], [place] [address]Cbi: (HP) Primary Insurance:ANTHEM MEDICARE ADVANTAGEPolicy Number: [id number] Date:2024-09-07 DEBBI MORENOERDOB: [id number] [address], [place] [address]Cax: (HP) [facility] 11/07/2024 DEBBI MORENOERDOB: [address] [address]Mcs: (HP) Primary Insurance:ANTHEM MEDICARE ADVANTAGEPolicy Number: [id number] Date:2024-09-07 DEBBI MORENOERDOB: [id number] [address], [place] [address]Yxv: (HP) [facility] 11/03/2024 Primary Insurance:ANTHEM MEDICARE ADVANTAGE HMOPolunitypoint [facility] Number: [id number] Date:6033-59-41Udyp Name:Leighton MORENOERDOB: [id number] [place] [address] [facility] 10/26/2024 Primary Insurance:ANTHEM MEDICARE ADVANTAGE OPolicy Number: [id number] Date:4651-26-66Pmjr Name:Leighton MORENOERDOB: [id number] [place] [address] [facility] 10/07/2024 DEBBI MORENOERDOB: [id number] [address], [place] [address]Tbi: () Primary Insurance:ANTHEM MEDICARE ADVANTAGEPolicy Number: [id number] Date:2024-09-07 DEBBI MORENOERDOB: [id number] [address], [place] [address]Fzi: () [facility] 09/23/2024 Debbi Morenoer[address] [place] [address]Sgf: (HP) Primary Insurance:Self PayPolicy Number: Effective Date:2024-09-23 NOT GIVENUNK [facility] 08/19/2024 Debbi Morenoer[address] [place] [address]Sqs: (HP) Primary Insurance:[employer] [facility] PFFSPolicy Number: [id number] Date:5612-73-23[address] [address]XO: Debbi Reynolds GailwalderDOB: 1585-88-75VRP4126 [place] [address]Pmx: (HP) [facility] 08/19/2024 Secondary Insurance:Self PayPolicy Number: Effective Date:2024-08-19 NOT GIVENUNK [facility] 08/09/2024 DEBBI Reynolds MALIKAERDOB: [address], [place] [address]Ael: (HP) Primary Insurance:[employer] MEDICARE PLAN (HMO)Policy Number: [id number] Date:2022-09-07 DEBBI Reynolds GAILWALDERDOB: [id number] [address], [place] [address]Rak: (HP) [facility] 07/26/2024 DEBBI Reynolds GAILWALDERDOB: [id number] [address], [place] [address]Ddm: (HP) Primary Insurance:AET MEDICARE PLAN (HMO)Policy Number: [id number] Date:2022-09-07 DEBBI Gail GAILWALDERDOB: [id number] [address], [place] [address]Ccx: (HP) [facility] 06/28/2024 DEBBI MORENOERDOB: [address], [place] [address]Msm: (HP) Primary Insurance:AET MEDICARE PLAN (HMO)Policy Number: [id number] Date:2022-09-07 DEBBI RICHARDWALDERDOB: [id number] [address], [place] [address]Aik: (HP) [facility] 06/21/2024 DEBBI RICHARDWALDERDOB: [address], [place] [address]Rov: (HP) Primary Insurance:AET MEDICARE PLAN (HMO)Policy Number: [id number] Date:2022-09-07 DEBBI RICHARDJAKOBERDOB: [id number] [address], [place] [address]Xfk: (HP) [facility] 06/07/2024 DEBBI RICHARDWALDERDOB: [address] R[address]el: (HP) [facility] Insurance:[facility] Number: [id number] Date:0813-95-98QK [address], [place] [address]HY: [facility] 06/06/2024 DEBBI RICHARDJAKOBERDOB: [address], [place] [address]Drn: (HP) Primary Insurance:AET MEDICARE PLAN (HMO)Policy Number: [id number] Date:2022-09-07 DEBBI RICHARDJAKOBERDOB: [id number] [address], [place] [address]Yxg: (HP) [facility] 05/27/2024 DEBBI RICHARDJAKOBERDOB: [id number] [address], [place] [address]Zuz: (HP) Primary Insurance:[facility] MEDICARE PLAN (O)Policy Number: [id number] Date:2022-09-07 DEBBI Reynolds RISHABHDOB: [id number] [address], [place] [address]Feg: (HP) [facility] 05/20/2024 DEBBI Reynolds RISHABHDOB: [address], [place] [address]Lkr: (HP) Primary Insurance:[employer] MEDICARE PLAN (O)Policy Number: [id number] Date:2022-09-07 DEBBI Reynolds KAROLINAB: [id number] [address], [place] [address]Gjo: (HP) [facility] 05/11/2024 DEBBI Gail TURCIOSB: [address], [place] [address]Tnz: (HP) Primary Insurance:[employer]NA MEDICARE PLAN (O)Policy Number: [id number] Date:2022-09-07 DEBBI Reynolds RISHABHDOB: [id number] [address], [place] [address]Mis: (HP) [facility] 04/22/2024 DEBBI Gail KAROLINAB: [id number] [address], [place] [address]Ppi: (HP) Primary Insurance:[employer] MEDICARE PLAN (O)Policy Number: [id number] Date:2022-09-07 DEBBI TURCIOSB: [id number] [address], [place] [address]Wuf: (HP) [facility] 03/25/2024 DEBBI TURCIOSB: [address], [place] [address]Prc: () Primary Insurance:[facility] MEDICARE PLAN (O)Policy Number: [id number] Date:2022-09-07 DEBBI Gail KAROLINAB: [id number], [place] [address]Tlq: () [facility] 03/21/2024 DEBBI FRIAS: [id number] [address], [place] [address]Jcd: () Primary Insurance:[facility] MEDICARE [facility] (O)Policy Number: [id number] Date:2022-09-07 DEBBI TURCIOSB: [id number] [address] [place], [place] [address]Mwj: () [facility] SOCIAL HISTORY No Social History Records Found FAMILY HISTORY No Family History Records Found No Status Records Found ADVANCE DIRECTIVES No Advanced Directives Records Found INFORMATION SOURCE DATE CREATED AUTHOR AUTHOR'S AMANUEL ATION 03/15/2025 TARSHA
--- OUTSIDE RECORDS SUMMARY | 2025-03-14 13:00 | XMS_ITS | Encounter Summary ---
Author Organization [employer] [facility] tem Address [id number] [address] [place] [address] Care Team Providers Care Foxing Cutting Machine Operator Name Role Phone Casper Vilchis DO Primary Care Provider Destiney chavis Reason for Visit * Cardiology (Routine) - Pending Review Specialty Diagnoses / Procedures Referred By Contac t Referred To Contact Diagnoses Postoperative atrial fibrillation ([facility]) Procedures Wireless Telemetry (In Office) Vivian Gee PA-C [address] [place] [address] Phone: tel: fax: Referral ID Status Reason Start Date Expiration Date V isits Requested Visits Authorized [id number] Pending Review 02/02/2025 02/02/2026 1 1 Encounter Details Date Type Department Care Team (Latest Contact Info) Description 03/14/2025 1:00 PM EDT Ancillary Procedure [facility] Card[facility] [address] [place] [phone] Postoperative atrial fibrillation ([facility]) Social History Tobacco Use Types Packs/Day Years Used Date Smoking Tobacco: Former Cigarettes 2 2 0 12/07/1977 - 12/08/1979 Smokeless Tobacco: Never Alcohol Use Standard Drinks/Week Comments Not Currently 0 (1 standard drink = 0.6 oz pur e alcohol) [facility] Utilities Answer Date Recorded In the past 12 months has th e electric, gas, oil, or water company threatened to shut off services in your home? No 01/03/2025 AUDIT-C Answer Date Recorded Frequency of Alcohol Consumption Never 12/08/2019 Average Number of Drinks Not on file 04/02/2 020 Frequency of Binge Drinking Not on [...] 03/24/2025 1:30 PM EDT Follow Up Anticoagulation [facility] - Pharmacy Medication Management [address] [place] [address] 08/14/2025 2:30 PM EST Office Visit [facility] Cardiology [address] [place] [address] Robert Jade MD [address] [place] [address] Pending Results Name Type Priority Associated Diagnoses Date /Time Wireless Telemetry (In Office) Cardiac Services Routine Postoperative atrial fibrillation ([facility]) 03/14/2025 9:17 AM EDT documented as of this encounter Goals Goal Patient Goal Type Associated Problems Recent Progress Patient-Stated? Author <enter goal here> General Yes Viola Gamble, RN Note: Evaluation of progress towards goal: patient progressing toward safe discharge home. documented as of this encounter Visit Diagnoses Diagnosis Postoperative atrial fibrillation (CMS-HCC) documented in this encounter Care Teams Foxing Cutting Machine Operator Relationship Specialty Start Date End Date Casper Vilchis DO PCP - General Family Medicine 11/07/24 Casper Vilchis DO [address] [place] [address] Provider Family Medicine 11/14/24 documented as of this encounter
--- OUTSIDE RECORDS SUMMARY | 2025-03-14 15:08 | XMS_ITS | Encounter Summary ---
Author Organization [facility] [employer] [facility] tem Address [id number] [address] [place] [address] Care Team Providers Care Glass Science Engineer Name Role Phone Casper Vilchis DO Primary Care Provider Destiney chavis Encounter Details Date Type Department Care Team (Latest Contact Info) Description 01/11/2025 Lab Requisition [facility] - Lab [address] [place] [phone] Christopher Sherman MD [address] [place], [place] [id number] care home (current) use of anticoagulants Social History Tobacco Use Types Packs/Day Years Used Date Smoking Tobacco: Former Cigarettes 2 2 0 12/07/1977 - 12/08/1979 Smokeless Tobacco: Never Alcohol Use Standard Drinks/Week Comments Not Currently 0 (1 standard drink = 0.6 oz pur e alcohol) [facility] Utilities Answer Date Recorded In the past 12 months has [employer], gas, oil, or water [employer] threatened to shut off services in your [...] 03/24/2025 1:30 PM EDT Follow Up Anticoagulation [facility] - Pharmacy Medication Management [address] [place] [address] 08/14/2025 2:30 PM EST Office Visit [facility] Physicians Cardiology [address] [place] [address] Robert Jade MD [address] [place], [place] [phone] documented as of this encounter Goals Goal Patient Goal Type Associated Problems Recent Progress Patient-Stated? Author <enter goal here> General Yes Viola Gamble, RN Note: Evaluation of progress towards goal: patient progressing toward safe discharge home. documented as of this encounter Procedures Procedure Name Priority Date/Time Associated Diagnosis Comments PROTIME & INR Routine 01/11/2025 10:55 AM EDT computer terminal operator (current) use of anticoagulants documented in this encounter Results * (ABNORMAL) Protime & INR (01/11/2025 10:55 AM EDT) PROTIME 46.4(H) 9.8 - 13.2 sec 01/11/2025 1:22 PM EDT [facility] INR 4.1(HH) 0.9 - 1.2 01/11/2025 1:22 PM EDT [facility] Blood Venous blood / Unknown 01/11/2025 10:55 AM EDT 01/11/2025 1:07 PM EDT us Christopher Sherman MD LAB BLOOD ORDERABLES Final Resul t [facility] [address] [place] [address], documented in this encounter Visit Diagnoses Diagnosis computer terminal operator (current) use of anticoagulants Long-term (current) use of anticoagulants documented in this encounter Care Teams Glass Science Engineer Relationship Specialty Start Date End Date Casper Vilchis DO PCP - General Family Medicine 11/07/24 Casper Vilchsi DO [address] [place] [address] Provider Family Medicine 11/14/24 documented as of this encounter
--- OUTSIDE RECORDS SUMMARY | 2025-03-14 15:08 | XMS_ITS | Clinical Summary ---
Author Organization [facility] Address [address] [place] [address] Care Team Providers Care Supervisor Refractory Products Name Role Phone Unavailable Primary Care Provider [...]
--- OUTSIDE RECORDS SUMMARY | 2025-03-14 15:08 | XMS_ITS | Encounter Summary ---
Author Organization [facility] tem Address [id number] [address] [place] [address] Care Team Providers Care Pump House Engineer Name Role Phone Casper Vilchis DO Primary Care Provider Destiney chavis Reason for Visit * Reason Onset Date Comments PT Discharge 01/10/2025 Encounter Details Date Type Department Care Team (Late st Contact Info) Description 01/10/[address] [facility] [address] [place] [address] Jesus Blas DO [address] [facility] [place] [address] PT Discharge Social History Tobacco Use Types Packs/Day Years Used Date Smoking Tobacco: Former Cigarettes 2 2 0 12/07/1977 - 12/08/1979 Smokeless Tobacco: Never Alcohol Use Standard Drinks/Week Comments Not Currently 0 (1 standard drink = 0.6 oz pur e alcohol) [facility] Utilities Answer Date Recorded In the past 12 months has [employer], gas, oil, or water [employer] threatened to shut off services in your [...] [place] - Pharmacy Medication Management [address] [place] [address] 08/14/2025 2:30 PM EST Office Visit [facility] Cardiology [address] [place] [phone] Robetr Jade MD [address] [place] [address] documented as of this encounter Goals Goal Patient Goal Type Associated Problems Recent Progress Patient-Stated? Author <enter goal here> General Yes Viola Gamble, CINDY Note: Evaluation of progress towards goal: patient progressing toward safe discharge home. documented as of this encounter Visit Diagnoses Not on filedocumented in this encounter Care Teams Pump House Engineer Relationship Specialty Start Date End Date Casper Vilchis DO PCP - General Family Medicine 11/07/24 Casper Vilchis DO [address] [place] [address] Provider Family Medicine 11/14/24 documented as of this encounter
--- OUTSIDE RECORDS SUMMARY | 2025-03-14 15:08 | XMS_ITS | Encounter Summary ---
Author Organization [employer] tem Address [id number] [address] [place] [address] Care Team Providers Care Nuclear Fuel Processing Technician Name Role Phone Casper Vilchis DO Primary Care Provider Destiney chavis Encounter Details Date Type Department Care Team (Latest Contact Info) Description 03/02/2025 Travel Social History Tobacco Use Types Packs/Day Years Used Date Smoking Tobacco: Former Cigarettes 2 2 0 12/07/1977 - 12/08/1979 Smokeless Tobacco: Never Alcohol Use Standard Drinks/Week Comments Not Currently 0 (1 standard drink = 0.6 oz pur e alcohol) [facility] Utilities Answer Date Recorded In [...] 03/24/2025 1:30 PM EDT Follow Up Anticoagulation [facility] - Pharmacy Medication Management [address] [place] [address] 08/14/2025 2:30 PM EST Office Visit [facility] Cardiology [address] [place] [address] Robert Jade MD [address] [place], [place] [phone] documented as of this encounter Goals Goal Patient Goal Type Associated Problems Recent Progress Patient-Stated? Author <enter goal here> General Yes Viola Gamble, CINDY Note: Evaluation of progress towards goal: patient progressing toward safe discharge home. documented as of this encounter Visit Diagnoses Not on filedocumented in this encounter Care Teams Nuclear Fuel Processing Technician Relationship Specialty Start Date End Date Casper Vilchis DO PCP - General Family Medicine 11/07/24 Casper Vilchis DO [address] [facility] [address] Provider Family Medicine 11/14/24 documented as of this encounter
--- OUTSIDE RECORDS SUMMARY | 2025-03-14 15:08 | XMS_ITS | Encounter Summary ---
Author Organization [employer] tem Address [facility]-[id number] [address] [place] [address] Care Team Providers Care Cardiopulmonary Specialist Name Role Phone Casper Vilchis DO Primary Care Provider Desitney chavis Encounter Details Date Type Department Care Team (Latest Contact Info) Description 03/07/2025 Travel Social History Tobacco Use Types Packs/Day Years Used Date Smoking Tobacco: Former Cigarettes 2 2 0 12/07/1977 - 12/08/1979 Smokeless Tobacco: Never Alcohol Use Standard Drinks/Week Comments Not Currently 0 (1 standard drink = 0.6 oz pur e alcohol) [facility] Utilities Answer Date Recorded In the [...] PM EDT Follow Up Anticoagulation [facility] - Pharmacy Medication Management [address] [place] [address] 08/14/2025 2:30 PM EST Office Visit [facility] Cardiology [address] [place] [phone] Robert Jade MD [address] [place], [place] [phone] documented as of this encounter Goals Goal Patient Goal Type Associated Problems Recent Progress Patient-Stated? Author <enter goal here> General Yes Viola Gamble, CINDY Note: Evaluation of progress towards goal: patient progressing toward safe discharge home. documented as of this encounter Visit Diagnoses Not on filedocumented in this encounter Care Teams Cardiopulmonary Specialist Relationship Specialty Start Date End Date Casper Vilchis DO PCP - General Family Medicine 11/07/24 Casper Vilchis DO [address] [facility] [place] [address] Provider Family Medicine 11/14/24 documented as of this encounter
--- OUTSIDE RECORDS SUMMARY | 2025-03-14 15:08 | XMS_ITS | Encounter Summary ---
Author Organization [facility] tem Address [facility][id number] [address] [place] [address] Care Team Providers Care Boring Machine Operator Vertical Name Role Phone Casper Vilchis DO Primary Care Provider Destiney chavis Encounter Details Date Type Department Care Team (Late st Contact Info) Description 01/10/2025 Lab Requisition [facility] - Lab [address] [place] [phone] Christopher Sherman MD [address] [place], [place] [phone] Coagulation defect, unspecified Social History Tobacco Use Types Packs/Day Years Used Date Smoking Tobacco: Former Cigarettes 2 2 0 12/07/1977 - 12/08/1979 Smokeless Tobacco: Never Alcohol Use Standard Drinks/Week Comments Not Currently 0 (1 standard drink = 0.6 oz pur e alcohol) [facility] Utilities Answer Date Recorded In the past 12 months has [employer] gas, oil, or water [employer] threatened to shut off services in your [...] 03/24/2025 1:30 PM EDT Follow Up Anticoagulation [facility] - Pharmacy Medication Management [address] [place] [address] 08/14/2025 2:30 PM EST Office Visit [facility] Physicians Cardiology [address] [place] [phone] Robert Jade MD [address] [place], [place] [phone] documented as of this encounter Goals Goal [...] - 13.2 sec 01/10/2025 1:23 PM EDT [facility] INR 4.6(HH) 0.9 - 1.2 01/10/2025 1:23 PM EDT [facility] Blood Venous blood / Unknown 01/10/2025 12:25 PM EDT 01/10/2025 12:41 PM EDT us Christopher Sherman MD LAB BLOOD ORDERABLES Final Resul t [facility] [address] [place] [address], documented in this encounter Visit Diagnoses Diagnosis Coagulation defect, unspecified documented in this encounter Care Teams Boring Machine Operator Vertical Relationship Specialty Start Date End Date Casper Vilchis DO PCP - General Family Medicine 11/07/24 Casper Vilchis DO [address] [place] [address] Provider Family Medicine 11/14/24 documented as of this encounter
--- OUTSIDE RECORDS SUMMARY | 2025-03-14 15:08 | XMS_ITS | Clinical Summary ---
Author Organization [employer] Address [id number] [place] [address] Care Team Providers Care Experimental Physicist Name Role Phone Casper Vilchis DO Primary [...] the morning. 30 tablet 2 5 Active Active Problems Problem Noted Date Diagnosed [...] 01/13/2020 Chest pain 12/09/2019 Prostate cancer 06/30/2018 [facility] (current) use of anticoagulants [Z79.0 1] 12/16/2016 H/O aortic valve replacement--1966 ball in cage 12/16/2016 Resolved Problems Problem Noted Date Diagnosed Date Resolved Date History of anticoagulant therapy 12/20/2020 03/21/2024 Encounters Date Type Department Care Team Description 03/14/2025 1:00 PM EDT [facility] [address] [place] [phone] Postoperative atrial fibrillation ([facility]) 03/13/2025 2:30 PM EDT Follow Up Anticoagulation [facility] Medication Management [address] [place] [address] 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] (Primary Dx); H/O aortic valve replacement--1966 ball in cage 03/13/2025 Travel 03/07/2025 2:30 PM EDT Follow Up Anticoagulation [facility] Medication Management [address] [place] [address] [facility] (current) use of anticoagulants [Z79.01] (Primary Dx); H/O aortic valve replacement--1966 ball in cage 03/07/2025 Travel 03/02/2025 1:00 PM EDT Office Visit [facility] [address] [place] [address] Casper Swain MD Nkadi, Chukwuemeke O, MD Aneurysm of ascending aorta without rupture (Primary Dx) 03/02/2025 12:30 PM EDT Follow Up Anticoagulation [facility] Medication Management [address] [place] [address] [facility] (current) use of anticoagulants [Z79.01] (Primary Dx); H/O aortic valve replacement--1966 ball in cage 03/02/2025 Travel 02/24/2025 Telephone [facility] Medication Management [address] [place] [phone] Medication Management, [facility] 02/20/2025 11:15 AM EDT Follow Up Anticoagulation [facility] Medication Management [address] [place] [address] [facility] (current) use of anticoagulants [Z79.01] (Primary Dx); H/O aortic valve replacement--1966 ball in cage 02/20/2025 [facility]phone [facility] [address] [place] [phone] Randa Maldonado APRN-CENTRAL SERVICE TECH 02/20/2025 Travel 02/14/2025 10:45 AM EDT Follow Up Anticoagulation [facility] Medication Management [address] [place] [address] [facility] (current) use of anticoagulants [Z79.01] (Primary Dx); H/O aortic valve replacement--1966 ball in cage 02/14/2025 Travel 02/09/2025 Refill [facility] [address] [facility] [address] [place] [phone] Maritza Cage, CINDY Med Refill 02/09/2025 Travel 02/08/2025 Telephone [facility] Medication Management [address] [place] [address] Mary Kay Bro MA 02/02/2025 12:00 PM EDT [facility] [address] [place] [address] [facility] [address] Vivian Gee, PABillC S/P aortic aneurysm repair (Primary Dx); Aneurysm of ascending aorta without rupture; H/O aortic valve replacement--1966 ball in cage; Chronic systolic heart failure ([facility]); Postoperative atrial fibrillation ([facility]) 02/02/2025 Travel 01/31/2025 Follow Up Anticoagulation [facility] Medication Management [address] [place] [address] Medication Management, [facility] (current) use of anticoagulants [Z79.01] (Primary Dx); H/O aortic valve replacement--1966 ball in cage 01/25/2025 Follow Up Anticoagulation [facility] Medication Management [address] [place] [address] Medication Management, [facility] 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] (Primary Dx); H/O aortic valve replacement--1966 in cage 01/17/2025 Follow Up Anticoagulation [facility] Medication Management [address] [place] [address] Murtaza Daniel [facility] 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] (Primary Dx); H/O aortic valve replacement--1966 in cage 01/16/2025 11:00 AM EDT Office Visit [facility] [address] [place] [address] Randa Merritt, TANKER DRIVER-CENTRAL SERVICE TECH Visit for wound check (Primary Dx); S/P aortic aneurysm repair 01/16/2025 Travel 01/11/2025 Follow Up Anticoagulation [facility] Medication Management [address] [place] [address] Medication Management, [facility] 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] (Primary Dx); H/O aortic valve replacement--1966 in cage 01/11/2025 Lab Requisition [facility] [address] [place] [address] Christopher Sherman MD [facility] (current) use of anticoagulants 01/10/2025 External Services Encounter [facility] [address] [place] [address] Dawit Dietz MD 01/10/2025 Follow Up Anticoagulation [facility] Medication Management [address] [place] [address] Murtaza Daniel [facility] 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 (current) use of anticoagulants [Z79.01] (Primary Dx); H/O aortic valve replacement--1966 ball in cage 01/05/2025 Telephone [facility] [address] [place] [address] Anton Cerda RN Hypotension 01/04/2025 11:08 AM EDT Anesthesia Event [address] [address] Law Mi MD New, Laura R, APRN-ALARM SECURITY OR SURVEILLANCE MONITOR 01/04/2025 10:19 AM EDT - 01/04/2025 12:34 PM EDT Surgery [address] [place] [address] Dawit Dietz MD MEDESTINAL RE-EXPLORATION WITH HEMOSTATIC ENHANCEMENT 01/03/2025 7:30 AM EDT Anesthesia Event [facility] Surgery [address] [place] [address]. [place] [address] Javi Deras MD 01/03/2025 7:30 AM EDT - 01/03/2025 1:30 PM EDT Surgery [address] [place] [phone] Dawit Dietz MD REDO-STERNOTOMY/AOR TIC ANUERSYM REPAIR WITH 34 X 8mm GELWEAVE/ CORNELIUS 01/03/2025 7:25 AM EDT Ancillary Procedure [facility] [phone] 01/03/2025 5:14 AM EDT - 01/09/2025 2:59 PM EDT Hospital Encounter [facility] 6W Acute [address] [place] [address] Dawit Dietz MD S/P ascending aortic aneurysm repair (Primary Dx); Aneurysm of ascending aorta without rupture; Generalized weakness; H/O aortic valve replacement--1966 ball in cage Discharge Disposition: Home Health 01/03/2025 Travel 12/26/2024 10:08 AM EDT - 12/26/2024 11:59 PM EDT Hospital Encounter [facility] [address] [place] [address] Bilateral carotid bruits Discharge Disposition: Home 12/26/2024 9:30 AM EDT - 12/26/2024 10:07 AM EDT Hospital Encounter [facility] [address] [place] [address] Aneurysm of ascending aorta without rupture; Genitourinary symptoms; Glucose intolerance (impaired glucose tolerance); SOB (shortness of breath) Discharge Disposition: Home 12/26/2024 Orders Only [facility] [address] [place] [phone] Aniya Mckinney, RN Aneurysm of ascending aorta without rupture (Primary Dx) 12/23/2024 11:45 AM EDT Follow Up Anticoagulation [facility] Medication Management [address] [place] [address] 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] (Primary Dx); H/O aortic valve replacement--1966 ball in cage 12/23/2024 Travel 12/16/2024 11:00 AM EDT Follow Up Anticoagulation [facility] Medication Management [address] [place] [address] 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] (Primary Dx); H/O aortic valve replacement--1967 ball in cage 12/16/2024 Travel from Last 3 Months Immunizations Immunization Administration [...] drink = 0.6 oz pur e alcohol) [facility] Utilities Answer Date Recorded In the past 12 months has th e [employer], gas, oil, or water [employer] threatened to shut off services in your [...] Pulse 57 03/02/2025 12:33 PM EDT Temperature 36.2 C (97.1 F) 01/16/2025 11:17 AM EDT Respiratory Rate 20 01/16/2025 11:17 AM EDT Oxygen Saturation 96% 03/02/2025 12:33 PM EDT Inhaled Oxygen Concentration - - Weight 50.6 kg (111 lb 9.6 oz) 03/02/2025 12:33 PM EDT Height 177.8 cm (5' 10 ) 03/02/2025 12:33 PM EDT Body Mass Index 16.01 03/02/2025 12:33 PM EDT Plan of Treatment Upcoming Encounters Date Type Department Care Team (Late st Contact Info) Description 03/24/2025 1:30 PM EDT Follow Up Anticoagulation [facility] Medication Management [address] [place] [address] 08/14/2025 2:30 PM EST Office Visit [facility] [address] [place] [phone] Robert Jade MD [address] [place] [address] Health Maintenance Due Date Last Done Comments Depression Screening 1957 DTaP,Tdap and Td Vaccines (1 - Tdap) 1964 Zoster (Shingles) Vaccine (1 of 2) 1964 Abdominal Aortic Aneurysm (A AA) Screen 2010 Fall Risk Screening 2010 COVID-19 Vaccine (8 - Pfizer risk 2023- season) 2025 07/07/2024, 07/01/2023, 04/25/2022, Additional history exists Influenza Vaccine 05/08/2025 06/30/2024, , 06/19/2022, Additional history exists Tobacco Screening 03/02/2026 03/02/2025 Goals Goal Patient Goal Type Associated Problems Recent Progress Patient-Stated? Author <enter goal here> General Yes Viola Gamble, CINDY Note: Evaluation of progress towards goal: patient progressing toward safe discharge home. Medical Devices Implanted Type Area Wool Batting Worker Device Identifier Shelf Expiration Date Model / Serial / Lot Gelwealexa Vascutek Terumo Implanted:Qty: 1 on 01/03/2025 by Dawit Dietz MD at [facility] Graft N/A: Heart [employer] C 03/06/2027 [id number] / [id number] / [id number] Mesh Brd Preshape Goldstein 2x4 - [id number] - [id number] Implanted:Qty: 1 on 01/07/2021 by Marycarmen Morrison MD at [facility] Mesh Left: Abdomen [employer] 07/04/2025 [id number] / [id number] / [id number] Procedures Procedure Name Priority Date/Time Associated Diagnosis Comments POCT PROTIME / INR Routine 03/13/2025 2:29 PM EDT 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] H/O aortic valve replacement--1967 ball in cage POCT PROTIME / INR Routine 03/07/2025 2:36 PM EDT 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] H/O aortic valve replacement--1967 ball in cage POCT PROTIME / INR Routine 03/02/2025 12:22 PM EDT [facility] (current) use of anticoagulants [Z79.01] H/O aortic valve replacement--1967 ball in cage POCT EKG Routine 03/02/2025 Aneurysm of ascending aorta without rupture POCT PROTIME / INR Routine 02/20/2025 11:13 AM EDT 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] H/O aortic valve replacement--1967 ball in cage POCT PROTIME / INR Routine 02/14/2025 10:47 AM EDT 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] H/O aortic valve replacement--1967 ball in cage BASIC METABOLIC PANEL Routine 02/09/2025 11:21 AM EDT Chronic systolic heart failure ([facility]-HCC) POCT EKG Routine 02/02/2025 Chronic systolic heart failure ([facility]-HCC) PROTIME & INR Routine 01/31/2025 PROTIME & [...] & INR Routine 01/11/2025 10:55 AM EDT [facility] (current) use of anticoagulants PROTIME & INR [...] 1 VW STAT 01/04/2025 1:13 PM EDT ME AN ELECTIVE ENDOTRACHEAL AIRWAY Routine 01/04/2025 11:27 [...] GLU HH Routine 01/03/2025 10:19 AM EDT ME ANES ART LINE Routine 01/03/2025 8:52 AM EDT ME INSERT/PLACE FLOW DIRECT CATH Routine 01/03/2025 8:50 AM EDT POCT IMAGN Routine 01/03/2025 8:00 AM EDT POCT ABG RAPID K GLU ICA HH Routine 01/03/2025 8:00 AM EDT TEG BILL ONLY Routine 01/03/2025 7:58 AM EDT ME AN ELECTIVE ENDOTRACHEAL AIRWAY Routine 01/03/2025 7:39 [...] / INR Routine 12/23/2024 11:39 AM EDT 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 INR 2.5(A) 0.8 - 1.2 MANUALLY TRANSCRIBED RESULTS 03/13/2025 2:29 PM EDT [facility] Medication Management POINT O F CARE TEST ORDERABLES Final Result Performing Organization Address City/[facility]/ZIP Co de Phone Number MANUALLY TRANSCRIBED RESULTS * POCT EKG (03/02/2025) Only the most recent of3 resultswithin the time period is included. Robert Jade MD ECG ORDERABLES Final Res ult Performing Organization Address City/[facility]/ZIP Co de Phone Number MANUALLY TRANSCRIBED RESULTS * (ABNORMAL) Basic Metabolic Panel (02/09/2025 11:21 AM EDT) Only the most recent of9 resultswithin the time period is included. SODIUM 138 134 - 146 mmol/L 02/09/2025 2:17 PM EDT [facility] POTASSIUM 4.1 3.5 - 5.0 mmol/L 02/09/2025 2:17 PM EDT [facility] CHLORIDE 98 98 - 109 mmol/L 02/09/2025 2:17 PM EDT [facility] CARBON DIOXIDE 32 22 - 32 mmol/L 02/09/2025 2:17 PM EDT [facility] ANION GAP 8 5 - 15 mmol/L 02/09/2025 2:17 PM EDT [facility] BLOOD UREA NITROGEN 17 5 - 27 mg/dL 02/09/2025 2:17 PM EDT [facility] CREATININE 1.10 0.60 - 1.30 mg/dL 02/09/2025 2:17 PM EDT [facility] Comment:METHOD TRACEABLE TO IDMS STANDARD GLUCOSE 114(H) 65 - 99 mg/dL 02/09/2025 2:17 PM EDT [facility] CALCIUM 9.5 8.5 - 10.5 mg/dL 02/09/2025 2:17 PM EDT [facility] EGFR Non-Race Dependent 68 >=60 ml/min/1.7 3sq.m 02/09/2025 2:17 PM EDT [facility] Comment: Reported eGFR is based on the CKD-EPI 2020 equation that does not use a race coefficient. Blood Venous blood / Unknown Venipuncture / Unknown 02/09/2025 11:21 AM EDT 02/09/2025 11:21 AM EDT us Vivian Gee PA-C LAB BLOOD ORDERABLES Final Result [facility] [address] [place] [address], [place] [phone] * (ABNORMAL) Protime & INR (01/31/2025) Only the most recent of18 resultswithin the time period is included. INR 2.3(A) 0.9 - 1.1 Blood Venous blood / Unknown us [facility] LAB BLO OD ORDERABLES Final Result * Lab Results Report (Scanned Into EHR) (01/17/2025 9:05 AM EDT) Narrative 01/17/2025 9:05 AM EDT Ordered by an unspecified provider. us Not In System Ref Prov LAB BLOOD ORDERABLES Viji l Result * (ABNORMAL) CBC without diff (01/16/2025 12:23 PM EDT) Only the most recent of8 resultswithin the time period is included. WBC 12.2(H) 4 - 11 x10E9/L 01/16/2025 3:36 PM EDT [facility] RBC Count 2.89(L) 4.1 - 5.7 X10E12/L 01/16/2025 3:36 PM EDT [facility] Hemoglobin 9.1(L) 13 - 17 g/dL 01/16/2025 3:36 PM EDT [facility] Hematocrit 27.8(L) 39 - 50 % 01/16/2025 3:36 PM EDT [facility] MCV 96 80 - 100 fL 01/16/2025 3:36 PM EDT [facility] MCH 31.6 27 - 34 pg 01/16/2025 3:36 PM EDT [facility] MCHC 32.9 32 - 36 g/dL 01/16/2025 3:36 PM EDT [facility] RDW 16.3(H) 11.5 - 15 % 01/16/2025 3:36 PM EDT [facility] Platelet Count 266 150 - 450 X10E9/L 01/16/2025 3:36 PM EDT [facility] MPV 8.9 7 - 12 fL 01/16/2025 3:36 PM EDT [facility] Blood Venous blood / Unknown Venipuncture / Unknown 01/16/2025 12:23 PM EDT 01/16/2025 12:24 PM EDT us Polo Gamboa TANKER DRIVER-CENTRAL SERVICE TECH LAB BLOOD ORDERABLES Final Result [facility] [address] [place] [address], * Magnesium (01/16/2025 12:23 PM EDT) Only the most recent of3 resultswithin the time period is included. MAGNESIUM 1.9 1.8 - 2.6 mg/dL 01/16/2025 2:53 PM EDT [facility] Blood Venous blood / Unknown Venipuncture / Unknown 01/16/2025 12:23 PM EDT 01/16/2025 12:24 PM EDT us Polo Gamboa TANKER DRIVER-CENTRAL SERVICE TECH LAB BLOOD ORDERABLES Final Result [facility] [address] [place] [address], [place] [phone] * Fluoroscopy swallow motility function (01/09/2025 8:42 [...] Christiana Love MD on 01/09/2025 8:48 AM ICasper MD have personally reviewed the image(s) and agree withand/or edited the report Finalized by Casper Le MD on 01/09/2025 8:57 AM us Polo Gamboa TANKER DRIVER-CENTRAL SERVICE TECH IMG FLUOROSCOPY ORDE MAURICIO Final Result * (ABNORMAL) Bedside Glucose *Place/Obtain serum glucose if >500 per glucometer. (01/08/2025 11:17PM EDT) Only the most recent of28 resultswithin the time period is included. Bedside Glucose (POC) 140(H) 65 - 99 mg/dL 01/09/2025 1:18 AM EDT [facility] Blood specimen (specimen) 01/08/2025 11:17 PM EDT 01/09/2025 1:18 AM EDT us Dawit Dietz MD POINT OF CARE TEST ORDMavis MARTÍNEZ Final Result [facility] [address] [place] [address], * Potassium (01/08/2025 5:03 PM EDT) Only the most recent of7 resultswithin the time period is included. POTASSIUM 4.1 3.5 - 5.0 mmol/L 01/08/2025 5:41 PM EDT [facility] Blood Venous blood / Unknown Central Line / Unknown 01/08/2025 5:03 PM EDT 01/08/2025 5:15 PM EDT Harley Sylvester PA-C LAB BLOOD ORDERABLES Fin al Result [facility] [address] [place] [address], * (ABNORMAL) Anti XA unfractionated heparin (01/08/2025 12:13 AM EDT) Only the most recent of3 resultswithin the time period is included. ANTI XA UFH 0.07(L) 0.30 - 0.70 IU/mL 01/08/2025 1:54 AM EDT [facility] Comment: Optimal time for testing is 6 hrs post dosage This test is specific for monitoring patients on UFH, and is not recommended for use with other Anti-Xa medications. Blood Venous blood / Unknown 01/08/2025 12:13 AM EDT 01/08/2025 12:28 AM EDT Dawit Dietz MD LAB BLOOD ORDERABLES Fi nal Result Performing Organization Address City/[facility]/ZIP Co de Phone Number [facility] [address] [place] [address], * (ABNORMAL) APTT (01/08/2025 12:06 AM EDT) Only the most recent of4 resultswithin the time period is included. APTT 38(H) 26 - 37 sec 01/08/2025 5:49 AM EDT [facility] Blood Venous blood / Unknown 01/08/2025 12:06 AM EDT 01/08/2025 5:11 AM EDT Polo Gamboa TANKER DRIVER-CENTRAL SERVICE TECH LAB BLOOD ORDERABLES Final Result [facility] [address] [place] [address], * X-ray chest 1 view (01/07/2025 4:18 [...] MD on 01/07/2025 4:26 AM Polo Gamboa TANKER DRIVER-CENTRAL SERVICE TECH IMG DIAGNOSTIC IMAGI NG ORDERABLES Final Result * ALT (01/05/2025 10:23 PM EDT) ALT 5 <=40 U/L 01/05/2025 11:01 PM EDT [facility] Blood Venous blood / Unknown 01/05/2025 10:23 PM EDT 01/05/2025 10:30 PM EDT Dawit Dietz MD LAB BLOOD ORDERABLES Fi nal Result [facility] [address] [place] [address], [place] [phone] * AST (01/05/2025 10:23 PM EDT) AST 16 <=41 U/L 01/05/2025 11:01 PM EDT [facility] Blood Venous blood / Unknown 01/05/2025 10:23 PM EDT 01/05/2025 10:30 PM EDT us Dawit Dietz MD LAB BLOOD ORDERABLES Fi nal Result [facility] [address] [place] [address], [place] [phone] * TSH (01/05/2025 10:23 PM EDT) Pathologist [facility] TSH 2.31 0.49 - 4.67 uIU/mL 01/06/2025 12:25 AM EDT [facility] Blood Venous blood / Unknown 01/05/2025 10:23 PM EDT 01/05/2025 10:30 PM EDT us Dawit Dietz MD LAB BLOOD ORDERABLES Fi nal Result Performing Organization Address [facility] Co de Phone Number [facility] [address] [place] [address], * Ionized magnesium (01/05/2025 11:35 AM EDT) Only the most recent of4 resultswithin the time period is included. Pathologist [facility] IONIZED MAGNESIUM 0.64 0.45 - 0.74 mmol/L 01/05/2025 11:51 AM EDT [facility] Blood Venous blood / Unknown 01/05/2025 11:35 AM EDT 01/05/2025 11:45 AM EDT us Dawit Dietz MD LAB BLOOD ORDERABLES Fi nal Result Performing Organization Address City/[facility]/ZIP Co de Phone Number [facility] [address] [place] [address], [place] [phone] * Ionized calcium (01/05/2025 11:35 AM EDT) Only the most recent of4 resultswithin the time period is included. [facility] IONIZED CALCIUM - ICAN 4.6 4.5 - 5.3 mg/dL 01/05/2025 11:51 AM EDT [facility] Blood Venous blood / Unknown 01/05/2025 11:35 AM EDT 01/05/2025 11:45 AM EDT Dawit Dietz MD LAB BLOOD ORDERABLES Fi nal Result [facility] [address] [place] [address], * Phosphorus (01/05/2025 2:01 AM EDT) Only the most recent of2 resultswithin the time period is included. [facility] PHOSPHORUS 3.8 2.4 - 4.9 mg/dL 01/05/2025 2:41 AM EDT [facility] Blood Venous blood / Unknown 01/05/2025 2:01 AM EDT 01/05/2025 2:15 AM EDT Dawit Dietz MD LAB BLOOD ORDERABLES Fi nal Result [facility] [address] [place] [address], * (ABNORMAL) CBC auto differential (01/04/2025 1:16 PM EDT) Only the most recent of2 resultswithin the time period is included. [facility] WBC 17.7(H) 4 - 11 x10E9/L 01/04/2025 4:35 PM EDT [facility] RBC Count 3.34(L) 4.1 - 5.7 X10E12/L 01/04/2025 4:35 PM EDT [facility] Hemoglobin 10.4(L) 13 - 17 g/dL 01/04/2025 4:35 PM EDT [facility] Hematocrit 30.2(L) 39 - 50 % 01/04/2025 4:35 PM EDT [facility] MCV 90 80 - 100 fL 01/04/2025 4:35 PM EDT [facility] MCH 31.1 27 - 34 pg 01/04/2025 4:35 PM EDT [facility] MCHC 34.4 32 - 36 g/dL 01/04/2025 4:35 PM T [facility] RDW 15.6(H) 11.5 - 15 % 01/04/2025 4:35 PM EDT [facility] Platelet Count 105(L) 150 - 450 X10E9/L 01/04/2025 4:35 PM EDT [facility] MPV 9.0 7 - 12 fL 01/04/2025 4:35 PM EDT [facility] Neutrophils % 87 % 01/04/2025 4:35 PM T [facility] Comment:This is an appended report. These results have been appended to a previously preliminary verified report. Lymphocytes % 3 % 01/04/2025 4:35 PM T [facility] Comment:This is an appended report. These results have been appended to a previously preliminary verified report. Monocytes % 10 % 01/04/2025 4:35 PM EDT [facility] Comment:This is an appended report. These results have been appended to a previously preliminary verified report. Neutrophils Absolute (M) 15.4 10*3/uL 01/04/2025 4:35 PM T [facility] Comment:This is an appended report. These results have been appended to a previously preliminary verified report. Lymphocytes Absolute 0.5 10*3/uL 01/04/2025 4:35 PM EDT [facility] Comment:This is an appended report. These results have been appended to a previously preliminary verified report. Monocytes Absolute 1.8 10*3/uL 01/04/2025 4:35 PM EDT [facility] Comment:This is an appended report. These results have been appended to a previously preliminary verified report. Differential Type MANUAL DIFFERENTIAL 01/04/2025 4:35 PM EDT [facility] Comment:This is an appended report. These results have been appended to a previously preliminary verified report. Blood 01/04/2025 1:16 PM EDT 01/04/2025 1:26 PM EDT Nancy Stahl Fabiano TANKER DRIVER-CENTRAL SERVICE TECH LAB BLOOD ORDERABLES Final Result [facility] [address] [place] [address], [place] [phone] * Fibrinogen (01/04/2025 1:16 PM EDT) FIBRINOGEN 244 190 - 480 mg/dL 01/04/2025 1:45 PM EDT [facility] Blood Venous blood / Unknown 01/04/2025 1:16 PM EDT 01/04/2025 1:25 PM EDT Nancy Stahl Fabiano TANKER DRIVER-CENTRAL SERVICE TECH LAB BLOOD ORDERABLES Final Result [facility] [address] [place] [address], [place] [phone] * ME AN ELECTIVE ENDOTRACHEAL AIRWAY (01/04/2025 11:27 AM EDT) Gurvinder Perera APRN-CRNA - 01/04/2025 11:27 AM EDT PHILIP Julien 01/04/2025 11:27 AM Airway Patient location during procedure: OR Urgency: Elective Date/Time: 01/04/2025 11:27 AM Airway not difficult IV In Situ: Peripheral General Information and Staff Service Provider: Law Mi MD ALARM SECURITY OR SURVEILLANCE MONITOR: PHILIP Julien Placed by: PHILIP Julien Patient [...] 3.5 - 5.0 mmol/L 01/04/2025 11:26 AM [facility] POC Glucose 185(H) 65 - 99 mg/dL 01/04/2025 11:26 AM [facility] POC HGB 10.5(L) 13.0 - 17.0 g/dL 01/04/2025 11:26 AM [facility] POC Hematocrit 32(LL) 39 - 47 % 01/04/2025 11:26 AM [facility] POC Ionized Calcium 4.6 4.5 - 5.3 mg/dL 01/04/2025 11:26 AM [facility] Sample type Arterial 01/04/2025 11:26 AM [facility] Body Temp 37.00 >=37 C 01/04/2025 11:26 AM [facility] pH, Arterial 7.271(L) 7.350 - 7.450 01/04/2025 11:26 AM [facility] pCO2, Arterial 45.5(H) 35.0 - 45.0 mmHg 01/04/2025 11:26 AM [facility] PO2, Arterial 300(H) 80 - 100 mmHg 01/04/2025 11:26 AM [facility] Base, Deficit -5.9(L) 0.0 - 2.0 mmol/L 01/04/2025 11:26 AM [facility] HCO3, Arterial 21.0(L) 22.0 - 26.0 mmol/L 01/04/2025 11:26 AM [facility] %O2 Saturation, Arterial 100.2 >90.0 % 01/04/2025 11:26 AM [facility] Kavon's test NA 01/04/2025 11:26 AM [facility] Sample site A LINE 01/04/2025 11:26 AM [facility] Insp. O2 conc. 100.0 % 01/04/2025 11:26 AM [facility] Arterial site (attribute) (Blood, Arterial) 01/04/2025 11:24 AM EDT 01/04/2025 11:26 AM EDT us Dawit Dietz MD POINT OF CARE TEST KAREEM MARTÍNEZ Final Result [facility] [address] [place] [address], * (ABNORMAL) Hemoglobin and hematocrit, blood (01/04/2025 8:10 AM EDT) Only the most recent of3 resultswithin the time period is included. Hemoglobin 10.4(L) 13 - 17 g/dL 01/04/2025 8:37 AM EDT [facility] Hematocrit 30.1(L) 39 - 50 % 01/04/2025 8:37 AM T [facility] Blood (Other) 01/04/2025 8:1 0 AM EDT 01/04/2025 8:26 AM EDT Gurvinder Gomes MD LAB BLOOD ORDERABLES Final Result [facility] [address] [place] [address], [place] [phone] * TEG BILL ONLY (01/04/2025 7:52 AM EDT) Only the most recent of6 resultswithin the time period is included. Blood (Other) 01/04/2025 7:5 2 AM EDT 01/11/2025 9:27 AM EDT Dawit Dietz MD LAB BLOOD ORDERABLES Fi nal Result Performing Organization Address City/[facility]/ZIP Co de Phone Number [facility] [address] [place] [address], [place] * ECG 12 lead (01/04/2025 4:09 AM EDT) Only the most recent of2 resultswithin the time period is included. 01/04/2025 4:09 AM EDT Narrative TRAC[facility]AST[facility]UE - 01/08/2025 11:17 PM EDT Dawit Dietz MD ECG ORDERABLES Final R esult Performing Organization Address City/[facility]/ZIP Co de Phone Number [facility] * Platelet set-up: Number of Units: 1 (01/04/2025 3:00 AM EDT) Only the most recent of2 resultswithin the time period is included. Blood component type [id number] BLOOD [employer] Unit number [id number] BL OOD BANK - [facility] Unit ABO O BLOOD BANK - [facility] Unit RH POS BLOOD Yantra - [facility] Status of unit TRANSFUSED BLOO D BANK - [facility] Expiration Date [id number] BLOOD BANK - [facility] BB Type Barcode 5100 BLOOD BANK [employer] Blood Venous blood / Unknown 01/04/2025 3:00 AM EDT Dawit Dietz MD BLOOD BANK PRODUCT ORDMavis MARTÍNEZ Edited Result - Final BLOOD KELI LICONA * FFP setup:Number of Units: 1 (01/04/2025 3:00 AM EDT) Only the most recent of2 resultswithin the time period is included. Pathologist [facility] Blood component type [id number] BLOOD [facility]ra - [employer] Unit number [id number] BL OOD BANK - [employer] Unit ABO B BLOOD BANK - [employer] Unit RH POS BLOOD [facility] - [facility] Status of unit TRANSFUSED BLOO D Yantra - [facility] Expiration Date BLOOD [facility] - [facility] BB Type Barcode 7300 BLOOD [facility] - [employer] Blood Venous blood / Unknown 01/04/2025 3:00 AM EDT Dawit Dietz MD BLOOD BANK PRODUCT ORDMavis MARTÍNEZ Edited Result - Final BLOOD KELI LICONA * Transfuse RBC:1 Unit (01/04/2025 2:46 AM EDT) Only the most recent of3 resultswithin the time period is included. Kleber Hector MD BLOOD TRANSFUSION ORDERABLES Final Result * Lavender Top (01/03/2025 10:42 PM EDT) Extra Tube Auto Resulted 01/04/2025 3:03 AM EDT [facility] Blood Venous blood / Unknown 01/03/2025 10:42 PM EDT 01/03/2025 11:04 PM EDT Dawit Dietz MD LAB BLOOD ORDERABLES Fi nal Result [facility] [address] [place] [address], [place] [phone] * (ABNORMAL) Hemoglobin (01/03/2025 10:42 PM EDT) Hemoglobin 9.3(L) 13 - 17 g/dL 01/04/2025 8:07 AM EDT [facility] Blood Venous blood / Unknown 01/03/2025 10:42 PM EDT 01/03/2025 11:04 PM EDT Gurvinder Gomes MD LAB BLOOD ORDERABLES Final Result [facility] [address] [place] [address], * (ABNORMAL) Platelet count (01/03/2025 7:25 PM EDT) Only the most recent of2 resultswithin the time period is included. Platelet Count 119(L) 150 - 450 X10E9/L 01/03/2025 8:56 PM EDT [facility] Blood Venous blood / Unknown 01/03/2025 7:25 PM EDT 01/03/2025 7:56 PM EDT Kleber Hector MD LAB BLOOD ORDERABLES Final Re sult Performing Organization Address City/[facility]/ZIP Co de Phone Number [facility] [address] [place] [address], * Transfuse fresh frozen plasma: (01/03/2025 4:26 [...] Sample type Arterial 01/03/2025 2:33 PM EDT [facility] Body Temp 37.00 >=37 C 01/03/2025 2:33 PM EDT [facility] pH, Arterial 7.491(H) 7.350 - 7.450 01/03/2025 2:33 PM EDT [facility] pCO2, Arterial 33.7(L) 35.0 - 45.0 mmHg 01/03/2025 2:33 PM EDT [facility] PO2, Arterial 299(H) 80 - 100 mmHg 01/03/2025 2:33 PM EDT [facility] Base, Excess 2.4(H) 0.0 - 2.0 mmol/L 01/03/2025 2:33 PM EDT [facility] HCO3, Arterial 25.7 22.0 - 26.0 mmol/L 01/03/2025 2:33 PM EDT [facility] %O2 Saturation, Arterial 100.7 >90.0 % 01/03/2025 2:33 PM EDT [facility] Kavon's test NA 01/03/2025 2:33 PM EDT [facility] SPO2 299.0 % 01/03/2025 2:33 PM EDT [facility] Sample site A LINE 01/03/2025 2:33 PM EDT [facility] Insp. O2 conc. 100.0 % 01/03/2025 2:33 PM EDT [facility] Arterial site (attribute) (Blood, Arterial) 01/03/2025 2:33 PM EDT 01/03/2025 2:33 PM EDT us Dawit Dietz MD LAB BLOOD ORDERABLES Fi nal Result [facility] [address] [place] [address], [place] * BUN (01/03/2025 2:00 PM EDT) BLOOD UREA NITROGEN 15 5 - 27 mg/dL 01/03/2025 3:03 PM EDT [facility] Blood Venous blood / Unknown 01/03/2025 2:00 PM EDT 01/03/2025 2:14 PM EDT Dawit Dietz MD LAB BLOOD ORDERABLES Fi nal Result [facility] [address] [place] [address], [place] [phone] * Creatinine includes GFR, serum (01/03/2025 2:00 PM EDT) CREATININE 0.79 0.60 - 1.30 mg/dL 01/03/2025 3:03 PM EDT [facility] Comment:METHOD TRACEABLE TO IDMS STANDARD EGFR Non-Race Dependent 90 >=60 ml/min/1.7 3sq.m 01/03/2025 3:03 PM EDT [facility] Comment: Reported eGFR is based on the CKD-EPI 2020 equation that does not use a race coefficient. Blood Venous blood / Unknown 01/03/2025 2:00 PM EDT 01/03/2025 2:14 PM EDT Dawit Dietz MD LAB BLOOD ORDERABLES Fi nal Result [facility] [address] [place] [address], [place] [phone] * ANESTHESIA CORNELIUS (01/03/2025 12:51 PM EDT) Narrative Javi Deras MD - 01/03/2025 12:51 PM EDT Javi Deras MD 01/03/2025 12:55 PM CORNELIUS Patient Location: OR Type of Anesthesia: General Anesthesia: Requesting Physician: Dawit Dietz MD IV Insitu: Peripheral Service Provider: [...] 3.5 - 5.0 mmol/L 01/03/2025 12:17 PM [facility] POC Glucose 161(H) 65 - 99 mg/dL 01/03/2025 12:17 PM [facility] POC HGB 7.9(L) 13.0 - 17.0 g/dL 01/03/2025 12:17 PM [facility] POC Hematocrit 24(LL) 39 - 47 % 01/03/2025 12:17 PM [facility] Sample type Arterial 01/03/2025 12:17 PM [facility] Body Temp 37.00 >=37 C 01/03/2025 12:17 PM [facility] pH, Arterial 7.480(H) 7.350 - 7.450 01/03/2025 12:17 PM [facility] pCO2, Arterial 32.8(L) 35.0 - 45.0 mmHg 01/03/2025 12:17 PM [facility] PO2, Arterial 297(H) 80 - 100 mmHg 01/03/2025 12:17 PM [facility] Base, Excess 0.9 0.0 - 2.0 mmol/L 01/03/2025 12:17 PM [facility] HCO3, Arterial 24.4 22.0 - 26.0 mmol/L 01/03/2025 12:17 PM [facility] %O2 Saturation, Arterial 100.5 >90.0 % 01/03/2025 12:17 PM [facility] Kavon's test NA 01/03/2025 12:17 PM [facility] Sample site A LINE 01/03/2025 12:17 PM [facility] Insp. O2 conc. 100.0 % 01/03/2025 12:17 PM [facility] SPO2 297.0 % 01/03/2025 12:17 PM [facility] Arterial site (attribute) (Blood, Arterial) 01/03/2025 12:14 PM EDT 01/03/2025 12:17 PM EDT us Dawit Dietz MD POINT OF CARE TEST KAREEM MARTÍNEZ Final Result [facility] [address] [place] [address], [place] * Surgical Pathology (01/03/2025 10:41 AM EDT) Case Report Surgical Pathology Report Case: Authorizing Provider: Dawit Dietz MD Collected: 01/03/2025 1041 Ordering Location: [facility] Received: 01/03/2025 1401 - Surgery Pathologist: Ade Mireles MD Specimen: Heart, AORTIC ANUERSYM 01/23/2025 12:11 PM EDT [facility] Final Diagnosis Aortic aneurysm, 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 01/23/2025 12:11 PM [facility] at 1211 EDT Gross [...] 0.2 cm to 0.3 cm in thickness. Yarn Wrapper sections are submitted in a single cassette. (1, , , m8.1) . 01/23/2025 12:11 PM EDT [facility] Embedded Images 01/23/2025 12:11 PM T [facility] Tissue Heart structure / Unknown 01/03/2025 10:41 AM EDT 01/03/2025 2:01 PM EDT Comment:Pre-op diagnosis: AORTIC ANEURYSM us Dawit Dietz MD PATHOLOGY/CYTOLOGY KAREEM MARTÍNEZ Final Result [facility] [address] [place] [address], [facility] [address] [place] [address], * ME ANES ART LINE (01/03/2025 8:52 AM EDT) Dawit Velasco APRN-CRNA - 01/03/2025 8:52 AM EDT PHILIP Dillon 01/03/2025 8:53 AM Art Line Performed by: PHILIP Dillon Authorized by: Javi Deras MD Patient Location: OR Start Time: 01/03/2025 7:40 AM End Time: 01/03/2025 7:51 AM Service Provider: Javi Deras MD ALARM SECURITY OR SURVEILLANCE MONITOR ( if not the service provider): PHILIP [...] 20 G Total Catheter Length (inches): 1 3/4 Location: Radial Orientation: Left Securement Method: Transparent Dressing, Taped and Sutured Placement Technique: Anatomical Landmarks and Guidewire Insertion Attempts: 2 Patient Tolerance: Tolerated Well no arterial injury Comments: Attempted right radial, unable to pass guidewire. Left radial as detailed in note. Javi Deras MD ME ANESTHESIA Final Result * ME INSERT/PLACE FLOW DIRECT CATH (01/03/2025 8:50 AM EDT) Dawit Velasco APRN-CRNA - 01/03/2025 8:50 AM EDT PHILIP Dillon 01/03/2025 8:52 AM Venous Access Line (CVC/Innis Oh) Performed by: PHILIP Dillon Authorized by: Javi Deras MD Patient Location: OR Start Time: 01/03/2025 7:40 AM End Time: 01/03/2025 7:44 AM Service Provider: Javi Deras MD ALARM SECURITY OR SURVEILLANCE MONITOR ( if not the service provider): PHILIP Dillon Placed By: Javi Deras MD Patient Identified, IV Checked, Risks and Benefits Discussed, Surgical Consent, Monitors and Equipment Checked, Pre-op Evaluation and Timeout Performed Fire Risk Assessment Score: 0 Vascular Access: Introducer Number of Introducer Lumens: Double Vascular Access: Innis-Oh Is the patient 5 years old or [...] Tolerance: Tolerated Well us Javi Deras MD ME ANESTHESIA Final Result * POCT IMAGN (01/03/2025 8:00 AM EDT) POC Ionized Magnesium 0.52 0.45 - 0.60 mmol/L 01/03/2025 8:08 AM EDT [facility] Venous blood (substance) 01/03/2025 8:00 AM EDT 01/03/2025 8:08 AM EDT us Dawit Dietz MD POINT OF CARE TEST KAREEM MARTÍNEZ Final Result [facility] [address] [place] [address], * ME AN ELECTIVE ENDOTRACHEAL AIRWAY (01/03/2025 7:39 AM EDT) Narrative Dawit Moon APRN-CRNA - 01/03/2025 7:39 AM EDT PHILIP Dillon 01/03/2025 8:49 AM Airway Patient location during procedure: OR Urgency: Elective Date/Time: 01/03/2025 7:39 AM Airway not difficult IV In Situ: Peripheral General Information and Staff Service Provider: Javi Deras MD ALARM SECURITY OR SURVEILLANCE MONITOR: Dawit Moon APRN-ALARM SECURITY OR SURVEILLANCE MONITOR Placed by: Javi Deras MD Patient Identified, [...] Dawit Dietz MD CV ECHO ORDERABLES Viji stahl Result XCELERA * Portable Protime (01/03/2025 6:24 AM EDT) POC INR 1.1 0.9 - 1.2 01/03/2025 6:31 AM EDT [facility] 01/03/2025 6:24 AM EDT 01/03/2025 6:31 AM EDT us Dawit Dietz MD POINT OF CARE TEST KAREEM MARTÍNEZ Final Result [facility] [address] [place] [address], [place] * Vas carotid duplex bilateral (12/26/2024 [...] * Hemoglobin A1c (12/26/2024 9:40 AM EDT) [facility] Hemoglobin A1C 5.6 4.4 - 5.6 % 12/26/2024 12:10 PM EDT [facility] Comment: NOTE ADA Guidelines Result HgbA1c Normal : less than 5.7 % Prediabetes : 5.7 % to 6.4 % Diabetes : > 6.4 % Use with caution in patients with abnormal hemoglobin variants as the half-life of red blood cells and in vivo glycation rates are affected. Average glucose 114 mg/dL 12:10 PM EDT [facility] PLASMA 12/26/2024 9:40 AM EDT 12/26/2024 10:06 AM EDT us Dawit Dietz MD LAB BLOOD ORDERABLES Fi nal Result [facility] [address] [place] [address] * (ABNORMAL) Comprehensive metabolic panel (12/26/2024 9:40 AM EDT) [facility] Sodium 139 134 - 146 mmol/L 12/26/2024 2:11 PM EDT [facility] Potassium, Bld 4.0 3.5 - 5.0 mmol/L 12/26/2024 2:11 PM EDT [facility] Chloride 103 98 - 109 mmol/L 12/26/2024 2:11 PM EDT [facility] CO2 26 22 - 32 mmol/L 12/26/2024 2:11 PM EDT [facility] Anion gap 10 5 - 15 mmol/L 12/26/2024 2:11 PM EDT [facility] BUN 23 5 - 27 mg/dL 12/26/2024 2:11 PM EDT [facility] Creatinine 0.92 0.60 - 1.30 mg/dL 12/26/2024 2:11 PM EDT [facility] Comment:METHOD TRACEABLE TO IDMS STANDARD Glucose 123(H) 65 - 99 mg/dL 12/26/2024 2:11 PM EDT [facility] Calcium 9.4 8.5 - 10.5 mg/dL 12/26/2024 2:11 PM EDT [facility] Total Protein 6.9 6.0 - 8.0 g/dL 12/26/2024 2:11 PM EDT [facility] Albumin 4.4 3.2 - 5.3 g/dL 12/26/2024 2:11 PM EDT [facility] Alkaline Phosphatase 69 39 - 130 U/L 12/26/2024 2:11 PM EDT [facility] AST 20 0 - 41 U/L 12/26/2024 2:11 PM EDT [facility] ALT 11 0 - 40 U/L 12/26/2024 2:11 PM EDT [facility] Total bilirubin 0.6 0.3 - 1.2 mg/dL 12/26/2024 2:11 PM EDT [facility] eGFR (CKD-EPI)non-rac e dependent 85 >59 ml/min/1.7 3sq.m 12/26/2024 2:11 PM EDT [facility] Comment: Reported eGFR is based on the CKD-EPI 2020 equation that does not use a race coefficient. PLASMA 12/26/2024 9:40 AM EDT 12/26/2024 10:06 AM EDT us Dawit Dietz MD LAB BLOOD ORDERABLES Fi nal Result [facility] [address] [place] [address] * Crossmatch RBC: (12/26/2024 9:30 AM EDT) Only the most recent of16 resultswithin the time period is included. Blood component type [id number] BLOOD BANK - OLED-TKY Unit number [id number] BL OOD BANK - OLED-TKY Unit ABO O BLOOD BANK - WELLSKY Unit RH POS BLOOD BANK - MON[facility] Status of unit TRANSFUSED BLOO Joshua LICONA Expiration Date [id number] BLOOD BANK - [facility] BB Type Barcode 5100 BLOOD BANK - [facility] 12/26/2024 9:30 AM EDT 12/26/2024 11:53 AM EDT us Dawit Dietz MD BLOOD BANK PRODUCT ORDE RABLES Final Result BLOOD BANK - MONAE * Type and screen(includes indirect josse) (12/26/2024 9:30 AM EDT) ABO O 12/26/2024 1:17 PM EDT [facility] RH Positive 12/26/2024 1:17 PM EDT [facility] Antibody Screen Negative 12/26/2024 1:17 PM EDT [facility] 12/26/2024 9:30 AM EDT us Dawit Dietz MD BLOOD BANK TEST ORDERAB LES Edited Result - Final [facility] [address] [place] [address], [place] from Last 3 Months Insurance [facility] MEDIC[facility] Advance Directives Documents on File Type Date Recorded Patient Yarn Wrapper Expl anation Advance Directive 03/04/2017 4:46 PM CONSE NT FOR TREATMENT 03/04/17 * Full Code (Latest Code Status on File) Date Activated Date Inactivated Comments 01/03/2025 1:35 PM 01/09/2025 5:07 PM * Full Code Date Activated Date Inactivated Comments 03/01/2020 8:12 AM 03/14/2020 7:44 PM * Full Code Date Activated Date Inactivated Comments 12/09/2019 7:59 AM 12/09/2019 3:42 PM Care Teams Experimental Physicist Relationship Specialty Start Date End Date Casper Vilchis DO PCP - General Family Medicine 11/07/24 Casper Vilchis DO [address] [place] [address] Provider Family Medicine 11/14/24
--- OUTSIDE RECORDS SUMMARY | 2025-03-14 15:08 | XMS_ITS | Encounter Summary ---
Author Organization [employer] s tem Address [id number] [address] [place] [address] Care Team Providers Care Criminal Research Specialist Name Role Phone Casper Vilchis DO Primary Care Provider Destiney chavis Encounter Details Date Type Department Care Team (Latest Contact Info) Description 03/13/2025 Travel Social History Tobacco Use Types Packs/Day Years Used Date Smoking Tobacco: Former Cigarettes 2 2 0 12/07/1977 - 12/08/1979 Smokeless Tobacco: Never Alcohol Use Standard Drinks/Week Comments Not Currently 0 (1 standard drink = 0.6 oz pur e alcohol) [facility] Utilities Answer Date Recorded In [...] 1:30 PM EDT Follow Up Anticoagulation [facility] - Pharmacy Medication Management [address] [place] [address] 08/14/2025 2:30 PM EST Office Visit [facility] Physicians Cardiology [address] [place] [id number] Robert Jade MD [address] [place], [place] [id number] documented as of this encounter Goals Goal Patient Goal Type Associated Problems Recent Progress Patient-Stated? Author <enter goal here> General Yes [place] Gamble, CINDY Note: Evaluation of progress towards goal: patient progressing toward safe discharge home. documented as of this encounter Visit Diagnoses Not on filedocumented in this encounter Care Teams Criminal Research Specialist Relationship Specialty Start Date End Date Casper Vilchis DO PCP - General Family Medicine 11/07/24 Casper Vilchis DO [address] [place] [address] Provider Family Medicine 11/14/24 documented as of this encounter
--- OUTSIDE RECORDS SUMMARY | 2025-03-14 15:09 | XMS_ITS ---
Author Organization [employer] tem Address [facility] [id number] [address] 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
--- OUTSIDE RECORDS SUMMARY | 2025-03-14 15:09 | XMS_ITS | Clinical Summary ---
Author Organization [facility] Address [address] [place] [id number] Phone Care Team Providers Care Religion Instructor Name Role Phone Unavailable Primary Care Provider [...] - 1-dose 75+ series) 2020 COVID-19 Vaccine (1 - 2023-2 5 season) 2024 Influenza Vaccine (#1) 2025 HIB Vaccines Aged Out No longer eligi ble based on patient's age to complete this topic HPV Vaccines (No Doses Required) Completed Hepatitis A Vaccines Aged Out No long [...]
--- OUTSIDE RECORDS SUMMARY | 2025-03-14 15:09 | XMS_ITS | Clinical Summary ---
Author Organization [facility] Address [address] [place], [place] [id number] Care Team Providers Care Box Toe Cementer Name Role Phone Casper Vilchis DO Primary [...] is lower risk 4 11/05/2023 Data from: https://[email or web address].medicine.[email or web address].edu/. Last address used for calculation [address] [...] AM EST Office Visit Radiation Oncology [address] [place] [address] Cande Carson MD [address] [place] [address] 1 year follow up Health Maintenance Due Date Last Done Comments Anxiety Screening 12/23/1963 Depression Screening 12/23/1963 DTaP,Tdap,Td Vaccine (1 - Tdap) 1964 Shingrix Vaccine (1 of 2) 12/23/1995 Advance Directive Discussion 09/07/2024 Medicare Advantage Annual Wellness Visit 09/07/2024 Covid-19 Vaccine (2023-2 5 season) 2025 07/07/2024, 07/01/2023, 04/25/2022, Additional history exists Influenza Vaccine (#1) 2025 , 07/01/2023, 06/19/2022, Additional history exists Diabetes Screening 12/03/2026 12/04/2023, 0 02/20/2023, 12/26/2020, Additional history exists Pneumococcal Vaccine: 50+ Completed 2018, 06/09/2018, 10/23/2017, Additional history exists RSV Vaccine Completed 06/30/2024 Cologuard (FIT-DNA) Discontinued 08/30/2024, 06/03/2021, 05/02/2018 Colorectal Cancer Screening Discontinued CT Colonography Discontinued Colonoscopy Discontinued Fecal Occult Blood Discontinued Sigmoidoscopy Discontinued Insurance [employer] ADVANT[employer] HMO Care Teams Box Toe Cementer Relationship Specialty Start Date End Date Casper Vilchis DO PCP - General Family Medicine 06/16/18
--- OUTSIDE RECORDS SUMMARY | 2025-03-14 15:09 | XMS_ITS ---
Author Organization [facility] Address [address] [place], [place] [id number] Care Team Providers Care Commercial Lines Account Executive Name Role Phone Casper Vilchis DO Primary [...] Zendejas Patient : 1945 Patient phone: Email: [email or web address] Health Care Providers Primary Care Provider: Dr. [...] you may be interested in: [email or web address] spool worker Medical Illustrator Art Therapy PSA (Prostate Cancer Support Group)- Meets at [address] [place] [phone] Daniela Toure. Please contact socialworker for dates and times. Prepared by: Katia Almaguer APRN.ACCOUNTING FILE CLERK Delivered on: March 15, 2019 - This [...]
--- OUTSIDE RECORDS SUMMARY | 2025-03-14 15:09 | XMS_ITS | Clinical Summary ---
Author Organization [facility] Address [address] [facility] [place] [address] Care Team Providers Care Professor In Family Studies Name Role Phone Unavailable Primary Care Provider [...]
--- OUTSIDE RECORDS SUMMARY | 2025-03-14 15:09 | XMS_ITS | Encounter Summary ---
Author Organization [employer] Address [id number] [address] [place] [address] Care Team Providers Care Professional Poker Player Name Role Phone Casper Vilchis DO Primary Care Provider Destiney chavis Encounter Details Date Type Department Care Team (Late st Contact Info) Description 01/10/2021 [facility] [address] [place] [id number] Jaelyn Mccurdy CMA Social History Tobacco Use [...] 03/24/2025 1:30 PM EDT Follow Up Anticoagulation [facility] - Pharmacy Medication Management [address] [place] [address] 08/14/2025 2:30 PM EST Office Visit [facility] Physicians Cardiology [address] [facility] [address] [place] [address] Robert Jade MD [address] [facility] [address] [place] [address] documented as of this encounter Visit Diagnoses Diagnosis S/P inguinal hernia repair- Primary Other postprocedural status documented in this encounter Care Teams Professional Poker Player Relationship Specialty Start Date End Date Casper Vilchis DO PCP - General Family Medicine 11/07/24 Casper Vilchis DO [address] [place] [address] Provider Family Medicine 11/14/24 documented as of this encounter
--- OUTSIDE RECORDS SUMMARY | 2025-03-14 15:09 | XMS_ITS | Encounter Summary ---
Author Organization [employer] Address [id number] [address] [place] [address] Care Team Providers Care Operations Support Analyst Name Role Phone Casper Vilchis DO Primary Care Provider Destiney chavis Encounter Details Date Type Department Care Team (Late st Contact Info) Description 03/07/2024 Orders Only [facility] [place] [address] Transcribe, Orders Support User Social [...] 03/24/2025 1:30 PM EDT Follow Up Anticoagulation [facility] - Pharmacy Medication Management [address] [place] [address] 08/14/2025 2:30 PM EST Office Visit [facility] Physicians Cardiology [address] [facility] [address] [place] [address] Robert Jade MD [address] [facility] [address] [place], [place] [id number] documented as of this encounter Visit Diagnoses Not on filedocumented in this encounter Care Teams Operations Support Analyst Relationship Specialty Start Date End Date Casper Vilchis DO PCP - General Family Medicine 11/07/24 Casper Vilchis DO [address] [place] [address] Provider Family Medicine 11/14/24 documented as of this encounter
--- OUTSIDE RECORDS SUMMARY | 2025-03-14 15:09 | XMS_ITS | Encounter Summary ---
Author Organization [facility] Address [address] [place] [address] Phone Care Team Providers Care Child And Family Services Specialist Name Role Phone Unavailable Primary Care Provider Unavailabl e Encounter Details Date Type Department Care Team (Late st Contact Info) Description 01/05/2024 Scanned Document [facility] [address] [place] [address] Scanning, Generic Provider Social History [...]
--- OUTSIDE RECORDS SUMMARY | 2025-03-14 15:09 | XMS_ITS | Encounter Summary ---
Author Organization [facility] Address [address] [place] [address] Phone Care Team Providers Care Mail Courier Name Role Phone Unavailable Primary Care Provider Unavailabl e Encounter Details Date Type Department Care Team (Late st Contact Info) Description 01/07/2024 Scanned Document [facility] [address] [place] [address] Scanning, Generic Provider Social History [...]
--- NOTE | 2025-03-14 15:14 | ECG_ITS ---
[facility] Test Date: 2025-03-14 Pat Name: DEBBI KEATING Department: Room: - Gender: Male Head Nurse: : 1945 Requested By: Order Number: [id number] Reading MD: KIM ZEPEDA Measurements Intervals [place] Rate: 65 P: 90 FL: 244 QRS: -57 QRSD: 138 T: 110 QT: 414 QTc: 425 Interpretive Statements 1100 Sinus rhythm 1102 Sinus arrhythmia 2231 First degree AV block 2330 Nonspecific intraventricular conduction block 3114 Cannot rule out anterior myocardial infarction, age undetermined 7200 Abnormal left axis deviation 9150 abnormal ECG Compared to ECG 01/16/2024 13:28:53 First degree AV block now present Ventricular premature complex(es) no longer present Left ventricular hypertrophy no longer present Myocardial infarct finding still present Electronically Signed On 03-16-2025 9:02:53 EDT by KIM ZEPEDA
[2025-03-14 15:23] LABS: Hematocrit 37.4 % (42.0-54.0); Hemoglobin 12.6 g/dL (14.0-18.0); Immature Granulocytes Abs Auto 0.02 10^3/uL (0.00-0.03); Immature Granulocytes Pct Auto 0.2 % (0.0-0.5); Lymphocytes Absolute Auto 1.4 10^3/uL (1.2-3.8); Mean Corpuscular HGB Conc 33.7 g/dL (29.9-35.2); Mean Corpuscular Hemoglobin 32.0 pg (25.9-34.0); Mean Corpuscular Volume 94.9 fL (80.0-94.0); Platelet Count 160 10^3/uL (150-450); Red Blood Count 3.94 10^6/uL (4.70-6.10); White Blood Count 8.1 10^3/uL (4.0-11.0)
[2025-03-14 15:44] LABS: Alanine Aminotransferase 17 U/L (16-63); Albumin Globulin Ratio 1.1; Albumin Level 3.6 g/dL (3.4-5.0); Alkaline Phosphatase 92 U/L (46-116); Anion Gap 9.9; Aspartate Amino Transferase 15 U/L (15-37); Blood Urea Nitrogen 24.0 mg/dL (7.0-18.0); Calcium 9.3 mg/dL (8.5-10.1); Carbon Dioxide 30.3 mmol/L (21.0-32.0); Chloride 98 mmol/L (98-107); Estimated GFR (African America >60 (>=60 mL/min/1.73m^2); Estimated GFR (Non-African Ame >60 (>=60 mL/min/1.73m^2); Globulin 3.2 g/dL; Glucose 149 mg/dL (74-106); Potassium 4.2 mmol/L (3.5-5.1); Sodium 134 mmol/L (136-145); Total Protein 6.8 g/dL (6.4-8.2)
[2025-03-14] MEDS: 0.9 % SODIUM CHLORIDE 1,000 ML 500 ML IV (16:02)
--- NOTE | 2025-03-14 16:35 | ED.WEAKNESS1 ---
HPI - Weakness General Chief complaint: Weakness Stated complaint: weakness Time Seen by Provider: 03/14/25 15:03 Source: patient Mode of arrival: ambulance Limitations: no limitations History of Present Illness HPI Narrative: The patient is a 79-year-old male is coming to us by the EMS after he was evaluated by home health care at home for concern of hypotension although the patient himself mentioned that he has been just feeling weak for the last 2 weeks. They still have a good appetite and is eating 3 meals a day he denies any nausea vomiting. The patient does not think that he drink enough water and he also denies any abdominal pain chest pain He does have a rash on his lower extremity that been going on at least for few weeks as well The patient have a history of chronic back pain for which he takes Tylenol and the last time he took Tylenol last night He denies any upper or lower extremity weakness he denies any radiation of the pain from his back down his legs Related Data Home Medications ?Medication ?Instructions ?Recorded ?Confirmed lorazepam 0.5 mg tablet 0.5 mg PO .hs 01/12/24 03/14/25 metoprolol succinate 25 mg 12.5 mg PO DAILY 01/12/24 03/14/25 tablet,extended release 24 hr sacubitril 24 mg-valsartan 26 mg 1 tab PO DAILY 01/12/24 03/14/25 tablet (Entresto) tadalafil 20 mg tablet 20 mg PO PRN PRN sexual activity 01/12/24 03/14/25 tamsulosin 0.4 mg capsule 0.4 mg PO Q24H 01/12/24 03/14/25 warfarin 5 mg tablet 5 mg PO .COMPLEX 01/12/24 03/14/25 empagliflozin 10 mg tablet 10 mg PO DAILY 03/14/25 03/14/25 (Jardiance) furosemide 20 mg tablet 20 mg PO DAILY 03/14/25 03/14/25 metformin 500 mg tablet,extended 500 mg PO BID 03/14/25 03/14/25 release 24 hr pantoprazole 40 mg tablet,delayed 40 mg PO DAILY 03/14/25 03/14/25 release spironolactone 25 mg tablet 12.5 mg PO DAILY 03/14/25 03/14/25 warfarin 1 mg tablet 1 mg PO DAILY 03/14/25 03/14/25 Allergies Allergy/AdvReac Type Severity Reaction Status Date / Time No Known Drug Allergies Allergy Verified 03/14/25 15:08 Review of Systems ROS Status of ROS 10 or more systems reviewed and unremarkable except as noted in history and below [facility] Social History Little interest or pleasure in doing things: not at all Feeling down, depressed, or hopeless: not at all Exam Narrative Exam Narrative: Nurses notes and vital signs reviewed and patient is not hypoxic. General: Well-appearing and in no apparent distress. Skin: The patient have some purpura like rash on his lower extremity mostly which is seem to be chronic No rash. Head: Normocephalic, atraumatic. Neck: Supple, non-tender. Eye: Pupils are equal, round and EOMI. No scleral icterus. Ears, Nose, Mouth, and Throat: TM are clear, no nasal mucosal hypertrophy. Oral mucosa is moist, no posterior oropharynx erythema, uvula is mid-line Cardiovascular: Regular Rate and Rhythm without murmur, gallop or rub. Respiratory: No accessory muscle use or respiratory distress. Lungs are clear to auscultation, no wheezing, rales or rhonchi Chest Wall: no tenderness Back: No midline thoracic or lumbar vertebral tenderness. No CVA tenderness Musculoskeletal: normal ROM, no calf or popliteal tenderness, no lower extremity edema/swelling GI: Abdomen is soft, non-distended. Normal bowel sounds. No masses appreciated. No tenderness to palpation. No rebound, guarding, or rigidity noted. Neurological: A&O x4. No cranial nerve dysfunction observed. No truncal ataxia. Moves all extremities. Sensation intact. Psychiatric: Cooperative and interactive. Normal mood and affect. Constitutional Vital Signs, click to edit/add: Last Vital Signs Temp 97.7 F 03/14/25 15:04 Pulse 66 03/14/25 15:04 Resp 18 03/14/25 15:04 BP 120/68 03/14/25 15:04 Pulse Ox 97 03/14/25 15:04 O2 Del Method Room Air 03/14/25 15:04 Course Vital Signs Vital signs: Vital Signs Temperature 97.7 F 03/14/25 15:04 Pulse Rate 66 03/14/25 15:04 Respiratory Rate 18 03/14/25 15:04 Blood Pressure 120/68 07/08/25 15:04 Pulse Oximetry 97 03/14/25 15:04 Oxygen Delivery Method Room Air 03/14/25 15:04 Temperature 97.7 F 03/14/25 15:04 Pulse Rate 66 03/14/25 15:04 Respiratory Rate 18 03/14/25 15:04 Blood Pressure 120/68 03/14/25 15:04 Pulse Oximetry 97 03/14/25 15:04 Oxygen Delivery Method Room Air 03/14/25 15:04 MDM - Weakness MDM Narrative Medical decision making narrative: The patient EKG in the ER showing sinus rhythm with a heart rate of [address] elevation or depression CBC and chemistry showed no acute significant pathology except for some elevation in the BUN and some sodium was 134 The patient was provided IV fluids for concern of some mild dehydration he was not orthostatic after fluids and was feeling much better Patient discharged home with instruction to hydrate well and drink enough water on a daily basis especially that he drinks 3 cups of coffee daily The patient urinalysis showed no UTI Patient was able to ambulate with no difficulty no dizziness The patient is to follow up with primary care physician in next 2-3 days or to return to the emergency department should any of the signs or symptoms worsen or new symptoms develop. The patient agrees with the following Diagnosis and Treatment plan and the patient will be discharged home. Lab Data Labs: Lab Results 03/14/25 03/14/25 Range/Units 15:17 17:00 WBC 8.1 (4.0-11.0) 10^3/uL RBC 3.94 L (4.70-6.10) 10^6/uL Hgb 12.6 L (14.0-18.0) g/dL Hct 37.4 L (42.0-54.0) % MCV 94.9 H (80.0-94.0) fL MCH 32.0 (25.9-34.0) pg MCHC 33.7 (29.9-35.2) g/dL RDW 14.5 (11.0-15.0) % Plt Count 160 (150-450) 10^3/uL MPV 10.5 (9.5-13.5) fL Neut % (Auto) 74.1 (43.0-75.0) % Lymph % (Auto) 17.3 L (20.5-60.0) % [place] % (Auto) 6.5 (1.7-12.0) % Eos % (Auto) 1.4 (0.9-7.0) % Baso % (Auto) 0.5 (0.2-2.0) % Neut # (Auto) 6.0 (1.4-6.5) 10^3/uL Lymph # (Auto) 1.4 (1.2-3.8) 10^3/uL [place] # (Auto) 0.5 (0.3-0.8) 10^3/uL Eos # (Auto) 0.1 (0.0-0.7) 10^3/uL Baso # (Auto) 0.0 (0.0-0.1) 10^3/uL Abs Immat Gran (auto) 0.02 (0.00-0.03) 10^3/uL Imm/Tot Granulo (auto) 0.2 (0.0-0.5) % Sodium 134 L (136-145) mmol/L Potassium 4.2 (3.5-5.1) mmol/L Chloride 98 (98-107) mmol/L Carbon Dioxide 30.3 (21.0-32.0) mmol/L Anion Gap 9.9 BUN 24.0 H (7.0-18.0) mg/dL Creatinine 1.07 (0.70-1.30) mg/dL Est GFR ( Amer) >60 (>=60 mL/min/1.73m^2) Est GFR (Non-Af Amer) >60 (>=60 mL/min/1.73m^2) BUN/Creatinine Ratio 22.4 Glucose 149 H (74-106) mg/dL Calcium 9.3 (8.5-10.1) mg/dL Total Bilirubin 0.3 (0.2-1.0) mg/dL AST 15 (15-37) U/L ALT 17 (16-63) U/L Alkaline Phosphatase 92 (46-116) U/L Troponin I High Sens 12.2 (4.0-76.1) pg/mL Total Protein 6.8 (6.4-8.2) g/dL Albumin 3.6 (3.4-5.0) g/dL Globulin 3.2 g/dL Albumin/Globulin Ratio 1.1 Urine Color Yellow (YELLOW) Urine Clarity Slightly cloudy A (CLEAR) Urine pH 7.0 (5.0-9.0) Ur Specific [place] 1.010 (1.005-1.025) Urine Protein Negative (NEG/TRACE) mg/dL Urine Glucose (UA) >=1000 A (NEGATIVE) mg/dL Urine Ketones Negative (NEGATIVE) mg/dL Urine Occult Blood Negative (NEGATIVE) Urine Nitrite Negative (NEGATIVE) Urine Bilirubin Negative (NEGATIVE) Urine Urobilinogen 0.2 (0.2-1.0) EU/dL Ur Leukocyte Esterase Negative (NEGATIVE) Discharge Plan Discharge Chief Complaint: Weakness Clinical Impression: Dehydration Patient Disposition: Home, Self-Care Time of Disposition Decision: 17:15 Condition: Good Prescriptions / Home Meds: No Action metoprolol succinate 25 mg tablet extended release 24 hr 12.5 mg PO DAILY Entresto 24-26 mg tablet 1 tab PO DAILY warfarin 5 mg tablet 5 mg PO .COMPLEX Rx Instructions: 5 mg orally 5 mg daily and 2.5 mg on thursday tadalafil 20 mg tablet 20 mg PO PRN PRN (Reason: sexual activity) tamsulosin 0.4 mg capsule 0.4 mg PO Q24H lorazepam 0.5 mg tablet 0.5 mg PO .hs Jardiance 10 mg tablet 10 mg PO DAILY furosemide 20 mg tablet 20 mg PO DAILY metformin 500 mg tablet extended release 24 hr 500 mg PO BID pantoprazole 40 mg tablet,delayed release (DR/EC) 40 mg PO DAILY spironolactone 25 mg tablet 12.5 mg PO DAILY warfarin 1 mg tablet 1 mg PO DAILY Print Language: French Instructions: Dehydration (DC) Referrals: BOOKER VILLEDA [Primary Care Provider, Unknown] - 1 week
[2025-03-14 17:06] LABS: Glucose Urine UA >=1000 mg/dL (NEGATIVE)
== END 2025-03-14 17:32 | disposition home or self-care (01) ==
PROVIDERS: Emergency Provider Emergency Medicine; PCP Family Medicine
DX: E86.0 Dehydration (principal); R21 Rash and other nonspecific skin eruption
CPT/HCPCS: 36415; 80053; 81003; 84484; 85025; 93005; 99285